=== PATIENT | female | born 2000 | race Caucasian/White ===

== ENCOUNTER 2023-10-28 20:58 | Outpatient (REF) | payer BC, OTHER, SELFPAY | END 2023-10-28 20:59 | disposition home or self-care (01) | LOC: LAB 20:58 | PROVIDERS: Visit Provider Obstetrics & Gynecology | DX: Z01.419 Encounter for gynecological examination (general) (routine) without abnormal findings (principal) | CPT/HCPCS: 88175 ==

== ENCOUNTER 2024-09-16 10:42 | Outpatient (OUT) | payer BC, OTHER, SELFPAY ==
--- OUTSIDE RECORDS SUMMARY | 2024-09-16 09:50 | XMS_ITS | Encounter Summary ---
Author Organization [facility] Address [address] [place] [address] Care Team Providers Care Surgical Training Specialist Name Role Phone Chey Bennett MD Primary Care Provider [phone] Nory Taylor NP Unavailable [phone] Marcial Mcclure DO Unavailable [phone] Reason for Visit * Reason Comments STI Screening Encounter Details Date Type Department Care Team (Late st Contact Info) Description 09/16/2024 9:50 AM EDT Office Visit JEFERSON [place] [address] [facility] [place] [address] Yasmeen Samson NP [address] [facility] [place] [address] STD exposure; Sexually transmitted disease exposure Social History Tobacco Use Types Packs/Day Years Used Date Smoking Tobacco: Never Smokeless Tobacco: Never Alcohol Use Standard Drinks/Week Comments Yes 0 (1 standard drink = 0.6 oz pur e alcohol) caffeine intake: 2 sodas daily AUDIT-C Answer Date Recorded Q1: How often do you have a drink containing alc ohol? 2-4 times a month 04/13/2024 Q2: How many drinks containi ng alcohol do you have on a typical day when you are drinking? 3 or 4 04/13/2024 Q3: How often do you have si x or more drinks on one occasion? Monthly 04/13/2024 PHQ-2 Answer Date Recorded Patient Health Questionnaire-2 Score 0 04/13/2024 Comments No Sex and Gender Information Value Date Recorded Sex Assigned at Not on file Legal Sex Female 11:47 PM EDT Gender Identity Not on file Sexual Orientation Not on file documented as of this encounter Last Filed Vital Signs Vital Sign Reading Time Taken Comments Blood Pressure 106/72 09/16/2024 10:07 AM EDT Pulse - - Temperature - - Respiratory Rate - - Oxygen Saturation - - Inhaled Oxygen Concentration - - Weight 66.3 kg (146 lb 4 oz) 09/16/2024 10:07 AM EDT Height - - Body Mass Index 27.63 04/13/2024 4:16 PM EST documented in this encounter Plan of Treatment Upcoming Encounters Date Type Department Care Team (Late st Contact Info) Description 11/03/2024 11:00 AM EDT Office Visit [facility] [address] [facility] [place] [id number] Jonathan Elizabeth DO [address] [place] [address] Scheduled Orders Name Type Priority Associated Diagnoses Orde r Schedule SURESWAB(R) ADVANCED VAGINITIS PLUS, TMA Pathology and Cytology Routine STD exposure Ordered: 09/16/2024 CHLAMYDIA TRACHOMATIS (GENITO/STI) Lab Routine STD exposure Ordered: 09/16/2024 Neisseria gonorrhea DNA probe, direct Lab Routine STD exposure Ordered: 09/16/2024 HIV-1 and HIV-2 antibodies Lab Routine Sexually transmitted disease exposure Ordered: 09/16/2024 Hepatitis B surface antigen Lab Routine Sexually transmitted disease exposure Ordered: 09/16/2024 HSV nonspecific, IgG Lab Routine STD exposure Sexually transmitted disease exposure Ordered: 09/16/2024 HSV nonspecific, IgM Lab Routine STD exposure Sexually transmitted disease exposure Ordered: 09/16/2024 documented as of this encounter Visit Diagnoses Diagnosis STD exposure Sexually transmitted disease exposure Contact with or exposure to venereal diseases documented in this encounter Additional Health Concerns Assessment Noted Time PHQ-9 Depression Total Score: 0 04/13/19 25 4:00 PM EST documented as of this encounter Care Teams Surgical Training Specialist Relationship Specialty Start Date End Date Chey Bennett MD PCP - General Family Medicine 04/13/24 Nory Taylor NP [address] [place] [address] Nurse Practitioner Family Medicine 04/20/24 Marcial Mcclure DO [address] [address] Referring Physician Neurology 06/18/24 documented as of this encounter
--- OUTSIDE RECORDS SUMMARY | 2024-09-16 10:48 | XMS_ITS | Encounter Summary ---
Author Organization [employer] Address [id number] [address] [place] [address] Care Team Providers Care Icebox Man Name Role Phone No Pcp, No Pcp Primary Care Provider Unavailabl e Reason for Visit * Reason Comments Med Refill Encounter Details Date Type Department Care Team (Late st Contact Info) Description 05/15/2021 Refill [facility] [address] [place] [address] [place] [address] Bri Julian, BEULAH-MANNEQUIN MOLD MAKER [address] [place] [address] Anxiety and depression Social History Tobacco Use Types Packs/Day Years Used Date Smoking Tobacco: Never Smokeless Tobacco: Never Alcohol Use Standard Drinks/Week Comments No 0 (1 standard drink = 0.6 oz pur e alcohol) PHQ-2 Answer Date Recorded Total Score 4 05/16/2021 Childcare Answer Date Recorded Childcare Unknown 07/28/2018 Employment Answer Date Recorded Employment Unknown 07/28/2018 Purpose - Life Answer Date Recorded Purpose and direction in life Unknown Comments No Sex and Gender Information Value Date Recorded Sex Assigned at Female 12/24/2023 3:54 PM EST Legal Sex Female 12:18 PM EDT Gender Identity Female 12/24/2023 3:54 PM EST Sexual Orientation Straight 12/24/2023 3: 54 PM EST COVID-19 Exposure Response Date Recorded In the last 10 days, have yo u been in contact with someone who was confirmed or suspected to have Coronavirus/COVID-19? No / Unsure 05/16/2021 10:11 AM EDT documented as of this encounter Miscellaneous Notes * Telephone Encounter - CANDELARIO Pride - 05/15/2021 6:24 AM EDT Patient needs appt for additional medication documented in this encounter Plan of Treatment Not on file documented as of this encounter Visit Diagnoses Diagnosis Anxiety and depression documented in this encounter Additional Health Concerns Assessment Noted Time PHQ-9 Depression Total Score: 7 10/01/19 21 8:39 AM EDT documented as of this encounter Care Teams Icebox Man Relationship Specialty Start Date End Date No Pcp, [place] [address] PCP - General Family Medicine 01/19/23 documented as of this encounter
--- OUTSIDE RECORDS SUMMARY | 2024-09-16 10:48 | XMS_ITS | Encounter Summary ---
Author Organization [facility] Address [address] [facility] [place] [address] Care Team Providers Care Animal Care Worker Name Role Phone Chey Bennett MD Primary Care Provider [phone] Nory Taylor NP Unavailable [phone] Marcial Mcclure DO Unavailable [phone] Encounter Details Date Type Department Care Team (Late st Contact Info) Description 05/18/2024 External Result Encounter [facility] External Department Unsolicited Nory Taylor NP [address] [place], [place] [id number] Social History Tobacco Use Types Packs/Day Years [...] on file documented as of this encounter Plan of Treatment Upcoming Encounters Date Type Department Care Team (Late st Contact Info) Description 11/03/2024 11:00 AM EDT Office Visit [facility] [address] [facility] [place] [address] Jonathan Elizabeth DO [address] [facility] [place] [address] documented as of this encounter Procedures Procedure Name Priority Date/Time Associated Diagnosis Comments TRANSTHORACIC ECHO (TTE) COMPLETE 05/18/2024 1:56 PM EDT documented in this encounter Results * Transthoracic echo (TTE) complete (05/18/2024 1:56 PM EDT) Anatomical Region Laterality Modality Heart Ultrasound 05/18/2024 1:56 PM EDT Narrative 05/18/2024 10:28 PM EDT [facility] Main [address] [address] Echocardiogram Signed Patient: Gaye Bird MR#: [id number] : 2000 Acct:[id number] Age/Sex: 23 / F ADM Date: 05/18/24 Loc: Room: Type: [facility] [address] Attending Dr: Nory Taylor HYDROLOGIC MODELER-C Ordering Provider: Nory Taylor CNP Date of Service: 05/18/24/ ECH/ECH echo transthoracic: tachycardia, abnormal EKG Copies to: MD Nory Ordonez [facility] Patient Location: : 2000 Gender: Female (MM/DD/YYYY) Age: 23 Years Ordering Physician: Nory Taylor Height: 59.84 in Weight: 157.066 lb Performed By: Aarti Locke RDCS BSA: 1.68 m2 BP: 112 / 70 mmHg HR: 87 bpm Reason For Study: tachycardia, abnormal EKG History: tachycardia, abn EKG + + Interpretation Summary Ejection Fraction = 55-60%. The left ventricular wall motion is normal. A variety of Doppler measurements indicate normal left ventricular diastolic function. There is trace tricuspid regurgitation. There is no comparison study available. Procedure/Quality: A two-dimensional transthoracic echocardiogram with color flow, Doppler and injection of contrast agent Definity was performed. The study was technically good in quality. Left Ventricle: The left ventricular size is normal. The left ventricular thickness is normal. Ejection Fraction = 55-60%. A variety of Doppler measurements indicate normal left ventricular diastolic function. The left ventricular wall motion is normal. Left Atrium: The left atrium appears normal in size. Right Atrium: The right atrium appears normal in size. Right Ventricle: The right ventricle is normal in size and function. Aortic Valve: The aortic valve is normal in structure. No hemodynamically significant valvular aortic stenosis. No aortic regurgitation is present. Mitral Valve: The mitral valve is normal in structure. No significant mitral valve stenosis. There is no mitral regurgitation noted. Tricuspid Valve: The tricuspid valve is normal in structure. There is trace tricuspid regurgitation. Pulmonic Valve: The pulmonic valve is not well visualized. No significant pulmonic regurgitation. Arteries: The aortic root is normal size. Pericardium/Pleura: No pericardial effusion seen. IVC/Hepatic Veins: The inferior vena cava is normal in size, with a normal collapsibility index. MMode/2D Measurements Calculations IVSd (0.7-1.1 cm): 0.74 cm LVIDd (3.7-5.4 cm): 4.9 cm LVPWd (0.7-1.1 cm): 0.72 cm LVIDs (2.3-3.6 cm): 3.2 cm LA dimension (2.3-4.0 cm): 3.1 Ao root diam (2.0-3.2 cm): 2.6 cm cm FS: 33.8 % Ao root area: 5.5 cm2 EDV(Teich): 112.8 ml LVOT diam: 1.95 cm ESV(Teich): 42.3 ml LVOT area: 3.0 cm2 EF(Teich): 62.5 % LAV(MOD-sp2): 41.2 ml LAV(MOD-sp4): 26.8 ml LA A2 area: 15.5 cm2 LA A4 area: 12.7 cm2 LA length (vol): 4.7 cm LA vol: 35.4 ml LA vol index: 21.1 ml/m2 Doppler Measurements Calculations MV E max arleth: 93.6 cm/sec Ao V2 max: 141.2 cm/sec MV A max arleth: 56.3 cm/sec Ao max P.0 mmHg MV dec time: 0.15 sec Ao mean P.5 mmHg MV dec slope: 611.4 cm/sec Ao V2 mean: 103.1 cm/sec E/E' lat: 4.6 Ao V2 VTI: 28.2 cm E/E' med: 7.2 EVGENY(I,D): 2.9 cm2 EVGENY(V,D): 2.7 cm2 TV max P.0 mmHg LV V1 max: 129.8 cm/sec TR max arleth: 234.8 cm/sec LV V1 max P.7 mmHg TR max P.1 mmHg LV V1 mean: 94.5 cm/sec RAP systole: 3.0 mmHg LV V1 mean P.0 mmHg LV V1 VTI: 26.9 cm + + + + + : Electronically : : : : signed by: Hannah : : : : Mohini : : : : on: 05/18/2024, : : 10:27 PM : Transcribed By: HEATHER Performed At: 05/18/24 3584 Signed By: Hannah Rajan MD 05/18/24 2227 Procedure Note Hannah Rajan MD - 05/18/2024 [facility] Main [address] [place], [place] [id number] Echocardiogram Signed Patient: Gaye Bird LMR#: [id number] : 2000Acct:[id number] Age/Sex: 23 / FADM Date: 05/18/24 Loc: Room:Type: [facility] Attending Dr: Nory Taylor HYDROLOGIC MODELER-C Ordering Provider: Nory Taylor CNP Date of Service: 05/18/24/ ECH/ECH echo transthoracic: tachycardia,abnormal EKG Copies to: MD Nory Ordonez [facility] Patient Location: : 2000 Gender: Female (MM/DD/YYYY) Age: 23 Years Ordering Physician: Nory Taylor Height: 59.84 in Weight: 157.066 lb Performed By: Aarti Locke MONIK BSA: 1.68 m2 BP: 112 / 70 mmHg HR: 87 bpm Reason For Study: tachycardia, abnormal EKG History: tachycardia, abn EKG + + Interpretation Summary Ejection Fraction = 55-60%. The left ventricular wall motion is normal. A variety of Doppler measurements indicate normal left ventricular diastolic function. There is trace tricuspid regurgitation. There is no comparison study available. Procedure/Quality: A two-dimensional transthoracic echocardiogram with color flow, Doppler and injection of contrast agent Definity was performed. The study was technically good in quality. Left Ventricle: The left ventricular size is normal. The left ventricular thickness is normal. Ejection Fraction = 55-60%. A variety of Doppler measurements indicate normal left ventricular diastolic function. The left ventricular wall motion is normal. Left Atrium: The left atrium appears normal in size. Right Atrium: The right atrium appears normal in size. Right Ventricle: The right ventricle is normal in size and function. Aortic Valve: The aortic valve is normal in structure. No hemodynamically significant valvular aortic stenosis. No aortic regurgitation is present. Mitral Valve: The mitral valve is normal in structure. No significant mitral valve stenosis. There is no mitral regurgitation noted. Tricuspid Valve: The tricuspid valve is normal in structure. There is trace tricuspid regurgitation. Pulmonic Valve: The pulmonic valve is not well visualized. No significant pulmonic regurgitation. Arteries: The aortic root is normal size. Pericardium/Pleura: No pericardial effusion seen. IVC/Hepatic Veins: The inferior vena cava is normal in size, with a normal collapsibility index. MMode/2D Measurements Calculations IVSd (0.7-1.1 cm): 0.74 cm LVIDd (3.7-5.4 cm): 4.9 cm LVPWd (0.7-1.1 cm): 0.72 cm LVIDs (2.3-3.6 cm): 3.2 cm LA dimension (2.3-4.0 cm): 3.1 Ao root diam (2.0-3.2 cm): 2.6 cm cm FS: 33.8 % Ao root area: 5.5 cm2 EDV(Teich): 112.8 ml LVOT diam: 1.95 cm ESV(Teich): 42.3 ml LVOT area: 3.0 cm2 EF(Teich): 62.5 % LAV(MOD-sp2): 41.2 ml LAV(MOD-sp4): 26.8 ml LA A2 area: 15.5 cm2 LA A4 area: 12.7 cm2 LA length (vol): 4.7 cm LA vol: 35.4 ml LA vol index: 21.1 ml/m2 Doppler Measurements Calculations MV E max arleth: 93.6 cm/sec Ao V2 max: 141.2 cm/sec MV A max arleth: 56.3 cm/sec Ao max P.0 mmHg MV dec time: 0.15 sec Ao mean P.5 mmHg MV dec slope: 611.4 cm/sec Ao V2 mean: 103.1 cm/sec E/E' lat: 4.6 Ao V2 VTI: 28.2 cm E/E' med: 7.2 EVGENY(I,D): 2.9 cm2 EVGENY(V,D): 2.7 cm2 TV max P.0 mmHg LV V1 max: 129.8 cm/sec TR max arleth: 234.8 cm/sec LV V1 max P.7 mmHg TR max P.1 mmHg LV V1 mean: 94.5 cm/sec RAP systole: 3.0 mmHg LV V1 mean P.0 mmHg LV V1 VTI: 26.9 cm + + + + + : Electronically: :: : signed by: Hannah: :: : Mohini: :: : on: 05/18/2024,: : 10:27 PM: Transcribed By: HEATHER Performed At: 05/18/24 0346 Signed By: Hannah Rajan MD 05/18/24 7254 Nory Taylor NP CV ECHO PROCEDURES Final R esult documented in this encounter Visit Diagnoses Not on filedocumented in this encounter Additional Health Concerns Assessment Noted Time PHQ-9 Depression Total Score: 0 04/13/19 4:00 PM EST documented as of this encounter Care Teams Animal Care Worker Relationship Specialty Start Date End Date Sabrina, Chey Holly MD PCP - General Family Medicine 04/13/24 Nory Taylor NP [address] [place] [address] Nurse Practitioner Family Medicine 04/20/24 Marcial Mcclure DO [address] [place] [address] Referring Physician Neurology 06/18/24 documented as of this encounter
--- OUTSIDE RECORDS SUMMARY | 2024-09-16 10:48 | XMS_ITS | Encounter Summary ---
Author Organization [facility] Address [address] [place] [address] Care Team Providers Care Exceptional Children Teacher Name Role Phone Unavailable Primary Care Provider Unavailabl e Source Comments In the event this information is protected by the Federal Confidentiality of Alcohol and Drug AbusePatient Records regulations: The Federal rules restrict any use of the information to criminally investigate or prosecute any alcohol or drug abuse patient.[facility] Encounter Details Date Type Department Care Team (Late st Contact Info) Description 03/07/2023 Get Medical Advice Pediatric Epilepsy [address] [place], [place] [id number] Micky Rico MD [address] [place] [address] Update medication Social History Tobacco Use Types Packs/Day Years Used Date Smoking Tobacco: Never Smokeless Tobacco: Never PHQ-2 Answer Date Recorded PHQ-2 score 0 06/04/2021 Area Deprivation Index Answer Date Wally rded National Score (1-100), lower number is lower ri sk 81 02/01/2023 State Score (1-10), lower number is lower risk 7 02/01/2023 Data from: https://www.neighborhoodatlas.[facility]/. Last address used for calculation [address] [facility] 02/01/2023 Comments No Sex and Gender Information Value Date Recorded Sex Assigned at Female 03/10/2021 6:50 AM EST Legal Sex Female 8:23 AM EDT Gender Identity Female 03/10/2021 6:50 AM EST Sexual Orientation Straight 03/10/2021 6: 50 AM EST documented as of this encounter Plan of Treatment Not on file documented as of this encounter Visit Diagnoses Not on filedocumented in this encounter
--- OUTSIDE RECORDS SUMMARY | 2024-09-16 10:48 | XMS_ITS | Encounter Summary ---
Author Organization [employer] Address [id number] [address] [place] [address] Care Team Providers Care Microbial Specialist Name Role Phone No Pcp, No Pcp Primary Care Provider Unavailabl e Encounter Details Date Type Department Care Team (Late st Contact Info) Description 09/08/2020 [facility] [address] [place] [address] [place] [phone] Carol Allen CMA Social History Tobacco Use Types Packs/Day Years Used Date Smoking Tobacco: Never Smokeless Tobacco: Never Alcohol Use Standard Drinks/Week Comments No 0 (1 standard drink = 0.6 oz pur e alcohol) PHQ-2 Answer Date Recorded Total Score 4 03/16/2020 Childcare Answer Date Recorded Childcare Unknown 07/28/2018 [...] Exposure Response Date Recorded In the last month, have you been in contact with someone who was confirmed or suspected to have Coronavirus / COVID-19? No / Unsure 09/10/2020 8:08 PM EDT documented as of this encounter Miscellaneous Notes * Telephone Encounter - Carol Allen CMA - 09/08/2020 9:09 AM EDT ----- Message from Bri Julian APRN-FACULTY PHYSICIAN sent at 09/08/2020 7:51 AM EDT ----- Normal vaginal thien- Patient should stop the antibiotic and if symptoms continue she can come backfor reevaluation. * Telephone Encounter - Carol Allen CMA - 09/08/2020 9:09 AM EDT Informed patients mother, she verbalized understanding. documented in this encounter Plan of Treatment Not on file documented as of this encounter Visit Diagnoses Not on filedocumented in this encounter Additional Health Concerns Assessment Noted Time PHQ-9 Depression Total Score: 4 03/16/19 21 8:00 AM EST documented as of this encounter Care Teams Microbial Specialist Relationship Specialty Start Date End Date No Pcp, [place] [address] PCP - General Family Medicine 01/19/23 documented as of this encounter
--- OUTSIDE RECORDS SUMMARY | 2024-09-16 10:48 | XMS_ITS | Encounter Summary ---
Author Organization [facility] Address [address] [place] [address] Care Team Providers Care Curriculum Advisory Teacher Name Role Phone Unavailable Primary Care Provider Unavailabl e Source Comments In the event this information is protected by the Federal Confidentiality of Alcohol and Drug AbusePatient Records regulations: The Federal rules restrict any use of the information to criminally investigate or prosecute any alcohol or drug abuse patient.[facility] Encounter Details Date Type Department Care Team (Late st Contact Info) Description 12/05/2020 Patient Msg Neurology [address] [id number] Micky Rico MD [address] [place] [address] level of vimpat is fine, Vitamin D is low Social History Tobacco Use Types Packs/Day Years Used Date Smoking Tobacco: Never Assessed PHQ-2 Answer Date Recorded PHQ-2 score 1 09/27/2020 Area Deprivation Index Answer Date Wally rded National Score (1-100), lower number is lower ri sk Not on file 09/28/2020 State Score (1-10), lower number is lower risk N ot on file 09/28/2020 Data from: https://www.neighborhoodatlas.[facility].edu/. Last address used for calculation Not on file 09/28/2020 Comments No Sex and Gender Information Value Date Recorded Sex Assigned at Female 03/10/2021 6:50 AM EST Legal Sex Female 8:23 AM EDT Gender Identity Female 03/10/2021 6:50 AM EST Sexual Orientation Straight 03/10/2021 6: 50 AM EST COVID-19 Exposure Response Date Recorded In the last month, have you been in contact with someone who was confirmed or suspected to have Coronavirus / COVID-19? No / Unsure 12/01/2020 10:25 AM EDT documented as of this encounter Plan of Treatment Not on file documented as of this encounter Visit Diagnoses Not on filedocumented in this encounter
--- OUTSIDE RECORDS SUMMARY | 2024-09-16 10:48 | XMS_ITS | Encounter Summary ---
Author Organization [employer] Address [id number] [address] [place] [address] Care Team Providers Care Regional Sales Consultant Name Role Phone No Pcp, No Pcp Primary Care Provider Unavailabl e Reason for Visit * Reason Comments Med Refill Encounter Details Date Type Department Care Team (Late st Contact Info) Description 04/12/2021 Refill [facility] [address] [place] [address] [place] [address] Catherine Victor APRN-KRYSTAL [address] [facility] [address] [place] [address] Anxiety and depression Social History Tobacco Use Types Packs/Day Years Used Date Smoking Tobacco: Never Smokeless Tobacco: Never Alcohol Use Standard Drinks/Week Comments No 0 (1 standard drink = 0.6 oz pur e alcohol) PHQ-2 Answer Date Recorded Total Score 7 09/30/2020 Childcare Answer Date Recorded Childcare Unknown 07/28/2018 [...] Orientation Straight 12/24/2023 3: 54 PM EST documented as of this encounter Miscellaneous Notes * Telephone Encounter - CANDELARIO Oliveira - 04/12/2021 10:38 PM EST Send to escobar please documented in this encounter Plan of Treatment Not on file documented as of this encounter Visit Diagnoses Diagnosis Anxiety and depression documented in this encounter Additional Health Concerns Assessment Noted Time PHQ-9 Depression Total Score: 7 10/01/19 21 8:39 AM EDT documented as of this encounter Care Teams Regional Sales Consultant Relationship Specialty Start Date End Date No Pcp, [place] [address] PCP - General Family Medicine 01/19/23 documented as of this encounter
--- OUTSIDE RECORDS SUMMARY | 2024-09-16 10:48 | XMS_ITS | Encounter Summary ---
Author Organization [facility] Address [address] [place] [address] Care Team Providers Care Tool And Gauge Inspector Name Role Phone Unavailable Primary Care Provider Unavailabl e Source Comments In the event this information is protected by the Federal Confidentiality of Alcohol and Drug AbusePatient Records regulations: The Federal rules restrict any use of the information to criminally investigate or prosecute any alcohol or drug abuse patient.[facility] Reason for Visit * Reason Onset Date Comments Refill Request 08/18/2024 Encounter Details Date Type Department Care Team (Late st Contact Info) Description 08/18/2024 Refill Neurology [address] [place] [address] Adrianna Brito PA-C [address] [place] [address] Refill Request Social History Tobacco Use Types Packs/Day Years Used Date Smoking Tobacco: Never Passive Smoke Exposure: Never Smokeless Tobacco: Never PHQ-2 Answer Date Recorded PHQ-2 score 0 11/12/2023 Area Deprivation Index Answer Date Wally rded National Score (1-100), lower number is lower ri sk 81 02/01/2023 State Score (1-10), lower number is lower risk 7 02/01/2023 Data from: https://www.neighborhoodatlas.medicine.[facility].edu/. Last address used for calculation [address] 02/01/2023 Comments No Sex and Gender Information [...]
--- OUTSIDE RECORDS SUMMARY | 2024-09-16 10:48 | XMS_ITS | Encounter Summary ---
Author Organization [facility] tem Address [id number] [address] [place] [address] Care Team Providers Care Scrap Baller Name Role Phone No Pcp, No Pcp Primary Care Provider Unavailabl e Encounter Details Date Type Department Care Team (Late st Contact Info) Description 05/16/2022 Telephone [facility] Family [facility] [address] [place] [address] [place] [address] Bri Julian, CAR SWEEPER-[facility] [address] [place] [id number] Social History Tobacco Use Types Packs/Day Years Used Date Smoking Tobacco: Never Smokeless Tobacco: Never Alcohol Use Standard Drinks/Week Comments Yes 0 (1 standard drink = 0.6 oz pur e alcohol) socially PHQ-2 Answer Date Recorded Total Score 2 12/19/2021 Childcare Answer Date Recorded Childcare Unknown 07/28/2018 [...] encounter Miscellaneous Notes * Telephone Encounter - Radha Gutierrez - 05/16/2022 10:28 AM EDT 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 * Telephone Encounter - CANDELARIO Pride - 05/16/2022 10:28 AM EDT What type of titer? * Telephone Encounter - Radha Gutierrez - 05/16/2022 10:28 AM EDT completed documented in this encounter Plan of Treatment Not on file documented as of this encounter Visit Diagnoses Not on filedocumented in this encounter Additional Health Concerns Assessment Noted Time PHQ-9 Depression Total Score: 2 12/20/19 22 10:16 AM EDT documented as of this encounter Care Teams Scrap Baller Relationship Specialty Start Date End Date No Pcp, No Pcp VICKY Jordan [id number] PCP - General Family Medicine 01/19/23 documented as of this encounter
--- OUTSIDE RECORDS SUMMARY | 2024-09-16 10:48 | XMS_ITS | Encounter Summary ---
Author Organization [employer] [facility] tem Address [id number] [address] [place] [address] Care Team Providers Care Tools Developer Name Role Phone No Pcp, No Pcp Primary Care Provider Unavailabl e Encounter Details Date Type Department Care Team (Late st Contact Info) Description 05/26/2021 Documentation [facility] [address] [place] [address] [place] [id number] Gloria Edgar CMA Social History Tobacco Use Types Packs/Day [...] suspected to have Coronavirus/COVID-19? No / Unsure 05/26/2021 7:59 AM EDT documented as of this encounter Plan of Treatment Not on file documented as of this encounter Visit Diagnoses Not on filedocumented in this encounter Additional Health Concerns Assessment Noted Time PHQ-9 Depression Total Score: 4 05/17/19 22 10:00 AM EDT documented as of this encounter Care Teams Tools Developer Relationship Specialty Start Date End Date No Pcp, [place] [id number] PCP - General Family Medicine 01/19/23 documented as of this encounter
--- OUTSIDE RECORDS SUMMARY | 2024-09-16 10:48 | XMS_ITS | Encounter Summary ---
Author Organization [facility] Address [address] [place] [address] Care Team Providers Care Head Of English Name Role Phone Chey Bennett MD Primary Care Provider [phone] Nory Taylor POULTRY PICKER Unavailable [phone] Marcial Mcclure DO Unavailable [phone] Encounter Details Date Type Department Care Team (Latest Contact Info) Description 09/10/2024 Travel Social History Tobacco Use Types Packs/Day Years [...] Description 11/03/2024 11:00 AM EDT Office Visit [facility] [address] [place] [address] [place] [address] Jonathan Elizabeth DO [address] [facility] [address] [place] [address] documented as of this encounter Visit Diagnoses Not on filedocumented in this encounter Additional Health Concerns Assessment Noted Time PHQ-9 Depression Total Score: 0 04/13/19 25 4:00 PM EST documented as of this encounter Care Teams Head Of English Relationship Specialty Start Date End Date Chey Bennett MD PCP - General Family Medicine 04/13/24 Nory Taylor, GENI [address] [place] [address] Nurse Practitioner Family Medicine 04/20/24 Marcial Mcclure DO [address] [place] [address] Referring Physician Neurology 06/18/24 documented as of this encounter
--- OUTSIDE RECORDS SUMMARY | 2024-09-16 10:48 | XMS_ITS | Encounter Summary ---
Author Organization [facility] Address [address] [place] [address] Care Team Providers Care Superintendent Meters Name Role Phone Unavailable Primary Care Provider Unavailabl e Source Comments In the event this information is protected by the Federal Confidentiality of Alcohol and Drug AbusePatient Records regulations: The Federal rules restrict any use of the information to criminally investigate or prosecute any alcohol or drug abuse patient.[facility] Encounter Details Date Type Department Care Team (Late st Contact Info) Description 04/15/2023 Patient Msg Neurology [address] [place] [id number] Provider, Ccf Please confirm your sleep study Social History Tobacco Use Types Packs/Day Years Used Date Smoking Tobacco: Never Smokeless Tobacco: Never PHQ-2 Answer Date Recorded PHQ-2 score 0 06/04/2021 Area Deprivation Index Answer Date Wally rded National Score (1-100), lower number is lower ri sk 81 02/01/2023 State Score (1-10), lower number is lower risk 7 02/01/2023 Data from: https://www.neighborhoodatlas.medicine.[facility].edu/. Last address used for calculation Johanne [facility] 02/01/2023 Comments No Sex and Gender [...]
--- OUTSIDE RECORDS SUMMARY | 2024-09-16 10:48 | XMS_ITS | Encounter Summary ---
Author Organization [facility] Address [address] [place] [address] Care Team Providers Care Meeting/Event Planner Name Role Phone Chey Bennett MD Primary Care Provider [phone] Nory Taylor LUMBER MARKER Unavailable [phone] Marcial Mcclure DO Unavailable [phone] Encounter Details Date Type Department Care Team (Late st Contact Info) Description 08/29/2024 Abstract [facility] Family Medicine [address] [place] [address] Nory Taylor NP [address] [place], [place] [id number] Social History Tobacco Use Types Packs/Day Years [...] EDT Office Visit [facility] [address] [place] [address] Jonathan Elizabeth DO [address] [facility] [place] [address] documented as of this encounter Visit Diagnoses Not on filedocumented in this encounter Additional Health Concerns Assessment Noted Time PHQ-9 Depression Total Score: 0 04/13/19 4:00 PM EST documented as of this encounter Care Teams Meeting/Event Planner Relationship Specialty Start Date End Date Chey Bennett MD PCP - General Family Medicine 04/13/24 Nory Taylor, LUMBER MARKER [address] [place] [address] Nurse Practitioner Family Medicine 04/20/24 Marcial Mcclure DO [address] [place] [address] Referring Physician Neurology 06/18/24 documented as of this encounter
--- OUTSIDE RECORDS SUMMARY | 2024-09-16 10:48 | XMS_ITS | Clinical Summary ---
Author Organization [facility] Address [address] [place] [address] Care Team Providers Care Motor Overhauler Name Role Phone Chey Bennett MD Primary Care Provider [phone] Nory Taylor SECURITY GUARDS DISPATCHER Unavailable [phone] Marcial Mcclure DO Unavailable [phone] Allergies No known active allergies Medications folic acid (Folvite) 1 MG tablet 11/29/19 23 Active metFORMIN XR (Glucophage-XR) 500 MG 24 hr tabletIndicatio ns:Insulin resistance Take 2 tablets (1,000 mg) by mouth in the evening. Take with meals Do not crush, chew, or split. 180 tablet 3 03/19/19 25 026 Active venlafaxine XR (Effexor XR) 37.5 MG 24 hr capsuleIndicati ons:Anxiety, generalized Take 1 capsule (37.5 mg) by mouth Daily Do not crush or chew. 90 capsule 3 03/19/19 25 026 Active lamoTRIgine (LaMICtal) 100 MG tablet Take 100 mg by mouth in the morning and 100 mg before bedtime. 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 60 tablet 5 06/19/19 25 026 Active norethindrone-e thinyl estradiol-iron (Lo Loestrin Fe) 1 MG-10 MCG / 10 MCG tabletIndicatio ns:Menorrhagia with irregular cycle Take 1 tablet by mouth Daily for 28 days Take 1 tablet by mouth daily 28 tablet 11 08/27/19 25 025 Active Magnesium Oxide -Mg Supplement (RA Magnesium) 500 MG capsule Take by mouth 025 Discontinued metroNIDAZOLE (Flagyl) 500 MG tabletIndicatio ns:BV (bacterial vaginosis) Take 1 tablet (500 mg) by mouth in the morning and 1 tablet (500 mg) before bedtime. Do all this for 7 days. Do not drink alcohol while taking this medication. 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 Anxiety and depression 03/16/2020 Resolved Problems Problem Noted Date Diagnosed Date Resolved Date Concussion with loss of cons ciousness of 30 minutes or less 10/30/2018 04/10/2024 Encounters Date Type Department Care Team Description 09/16/2024 9:50 AM EDT Office Visit [facility] [address] [place] [address] [place] [address] Yasmeen Samson NP STD exposure; Sexually transmitted disease exposure 09/16/2024 Bamboo flowsheet [facility] [address] [facility] [place] [address] Yasmeen Samson NP 09/10/2024 Travel 08/29/2024 Abstract [facility] [address] [facility] [place] [address] Nory Taylor NP 08/27/2024 Telephone [facility] [address] [place] [address] Aleksandra Barr MA 08/26/2024 1:50 PM EDT Office Visit [facility] [address] [place] [address] Jonathan Elizabeth DO BV (bacterial vaginosis) (Primary Dx); Menorrhagia with irregular cycle 08/26/2024 External Result Encounter [facility] External Department Unsolicited Yasmeen Samson NP 08/26/2024 Bamboo flowsheet [facility] [address] [facility] [place] [address] Jonathan Elizabeth DO 08/19/2024 Travel 06/18/2024 3:30 PM EDT Office Visit [facility] [address] [place] [address] Marcial Mcclure DO 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) (Primary Dx) 06/18/2024 Bamboo flowsheet [facility] [place] [address] [place] [address] Marcial Mcclure DO from Last 3 Months Immunizations Immunization Administration Dates Next Due DTaP 06/10/2007,01/24/2004 DTaP / Hep B / IPV 2002 DTaP, Unspecified 06/11/2003,03/19/2003 Hep B, Adolescent or Pediatric 06/19/2022,2002 Hep B, adult 07/20/2022 HiB, unspecified 03/19/2003 Hib (PRP-T) 11/18/2003,2002 Hib / Hep B 06/11/2003 IPV 06/10/2007,06/11/2003,03/19/2003 Influenza, injectable, quadr ivalent, preservative free 12/10/2022 MMR 06/10/2007,11/18/2003 Meningococcal ACWY, unspecified 06/14/2015 Meningococcal MCV4O 09/30/2020 Pneumococcal Conjugate PCV 7 11/18/2003,12/26/19 03 Tdap 05/27/2015 Family History Medical History Relation Name Comments No Known Problems Father Cirrhosis Maternal Grandmother Heart attack Maternal Grandmother Valvular heart disease Maternal Grandmother Valvular heart disease Mother Cirrhosis Mother's Sister Cancer Paternal Grandfather Ashutosh Bird Lung cancer Paternal Grandfather Ashutosh Bird Dementia Paternal Grandmother Valvular heart disease Sister Relation Name Status Comments Father Alive Maternal Grandfather Maternal Grandmother Mother Alive Mother's Sister Paternal Grandfather Ashutosh Bird Paternal Grandmother Sister Social History Tobacco Use Types Packs/Day Years Used Date Smoking Tobacco: Never Smokeless Tobacco: Never Tobacco Cessation:Counseling Given: Not Answered Alcohol Use Standard Drinks/Week Comments Yes 0 [...] on file Sexual Orientation Not on file Last Filed Vital Signs Vital Sign Reading Time Taken Comments Blood Pressure 106/72 09/16/2024 10:07 AM EDT Pulse 79 06/18/2024 3:28 PM EDT Temperature - - Respiratory Rate - - Oxygen Saturation 98% 06/18/2024 3:28 PM EDT Inhaled Oxygen Concentration - - Weight 66.3 kg (146 lb 4 oz) 09/16/2024 10:07 AM EDT Height 154.9 cm (5' 1 ) 04/13/2024 4:16 PM EST Body Mass Index 27.63 04/13/2024 4:16 PM EST Plan of Treatment Upcoming Encounters Date Type Department Care Team (Late st Contact Info) Description 11/03/2024 11:00 AM EDT Office Visit [facility] [address] [facility] [facility] [place] [address] Jonathan Elizabeth, [address] [facility] [place] [address] Health Maintenance Due Date Last Done Comments Influenza Vaccine (#1) 2024 12/10/2022 Procedures Procedure Name Priority Date/Time Associated Diagnosis Comments RECURRENT VAGINITIS (HTRX) Routine 08/26/2024 3:46 PM EDT from Last 3 Months Results * (ABNORMAL) RECURRENT VAGINITIS (HTRX) (08/26/2024 3:46 PM EDT) Pathologist [facility] ATOPOBIUM VAGINAE 27.692(A) 19.961 - 24.689 ppm 08/27/2024 6:17 AM EDT [facility] ATOPOBIUM VAGINAE Detected(A) 19.961 - 24.689 ppm 08/27/2024 6:17 AM EDT [facility] BVAB 2,3 (BACTERIAL VAGINOSIS ASSOCIATED BACTERIA 2, 3); MOBILUNCUS SPP 0 19.961 - 24.689 ppm 08/27/2024 6:17 AM EDT [facility] BVAB 2,3 (BACTERIAL VAGINOSIS ASSOCIATED BACTERIA 2, 3); MOBILUNCUS SPP Not Detected 19.961 - 24.689 ppm 08/27/2024 6:17 AM EDT [facility] CHA ALBICANS, PARAPSILOSIS, TROPICALIS 0 19.961 - 30.770 ppm 08/27/2024 6:17 AM EDT [facility] CHA ALBICANS, PARAPSILOSIS, TROPICALIS Not Detected 19.961 - 30.770 ppm 08/27/2024 6:17 AM EDT [facility] CHA GLABRATA 0 23.000 - 32.138 ppm 08/27/2024 6:17 AM EDT [facility] CHA GLABRATA Not Detected 23.000 - 32.138 ppm 08/27/2024 6:17 AM EDT [facility] CHA KRUSEI 0 23.000 - 32.271 ppm 08/27/2024 6:17 AM EDT [facility] CHA KRUSEI Not Detected 23.000 - 32.271 ppm 08/27/2024 6:17 AM EDT [facility] CHLAMYDIA TRACHOMATIS 0 23.000 - 31.467 ppm 08/27/2024 6:17 AM EDT [facility] CHLAMYDIA TRACHOMATIS Not Detected 23.000 - 31.467 ppm 08/27/2024 6:17 AM EDT [facility] GARDNERELLA VAGINALIS 22.1950(A) 19.961 - 24.689 ppm 08/27/2024 6:17 AM EDT [facility] GARDNERELLA VAGINALIS Detected(A) 19.961 - 24.689 ppm 08/27/2024 6:17 AM EDT [facility] MEGASPHAERA (TYPES 1, 2) 0 19.961 - 24.689 ppm 08/27/2024 6:17 AM EDT [facility] MEGASPHAERA (TYPES 1, 2) Not Detected 19.961 - 24.689 ppm 08/27/2024 6:17 AM EDT [facility] NEISSERIA GONORRHOEAE 0 23.000 - 32.117 ppm 08/27/2024 6:17 AM EDT [facility] NEISSERIA GONORRHOEAE Not Detected 23.000 - 32.117 ppm 08/27/2024 6:17 AM EDT [facility] TRICHOMONAS VAGINALIS 0 23.000 - 32.119 ppm 08/27/2024 6:17 AM EDT [facility] TRICHOMONAS VAGINALIS Not Detected 23.000 - 32.119 ppm 08/27/2024 6:17 AM EDT [facility] MYCOPLASMA GENITALIUM 0 19.961 - 24.689 ppm 08/27/2024 6:17 AM EDT [facility] MYCOPLASMA GENITALIUM Not Detected 19.961 - 24.689 ppm 08/27/2024 6:17 AM EDT [facility] ERMB, C; MEFA 16.201(A) 23.000 - 27.611 ppm 08/27/2024 6:17 AM EDT [facility] ERMB, C; MEFA Detected(A) 23.000 - 27.611 ppm 08/27/2024 6:17 AM EDT [facility] TET B, TET M 16.388(A) 23.000 - 27.778 ppm 08/27/2024 6:17 AM EDT [facility] TET B, TET M Detected(A) 23.000 - 27.778 ppm 08/27/2024 6:17 AM EDT [facility] Tissue 08/26/2024 3:46 PM EDT 08/27/2024 1:42 AM EDT Yasmeen Samson SECURITY GUARDS DISPATCHER LAB BLOOD ORDERABLES Final Re sult [facility] [address] [place] [address] from Last 3 Months Insurance [facility] Care Teams Motor Overhauler Relationship Specialty Start Date End Date Chey Bennett MD PCP - General Family Medicine 04/13/24 Nory Taylor NP [address] [place] [address] Nurse Practitioner Family Medicine 04/20/24 Marcial Mcclure DO [address] [facility] [address] [place] [address] Referring Physician Neurology 06/18/24
--- OUTSIDE RECORDS SUMMARY | 2024-09-16 10:48 | XMS_ITS | Encounter Summary ---
Author Organization [facility] Address [address] [place] [address] Care Team Providers Care Arm Rest Builder Name Role Phone Chey Bennett MD Primary Care Provider [phone] Nory Taylor NP Unavailable [phone] Marcial Mcclure DO Unavailable [phone] Encounter Details Date Type Department Care Team (Late st Contact Info) Description 09/16/2024 Bamboo flowsheet [facility] [address] [facility] [place] [address] Yasmeen Samson NP [address] [facility] [place] [address] Social History Tobacco Use Types Packs/Day Years [...] EDT Office Visit [facility] [address] [place] [address] Jonathan Elizabeth DO [address] [facility] [place] [address] documented as of this encounter Visit Diagnoses Not on filedocumented in this encounter Additional Health Concerns Assessment Noted Time PHQ-9 Depression Total Score: 0 04/13/19 4:00 PM EST documented as of this encounter Care Teams Arm Rest Builder Relationship Specialty Start Date End Date Chey Bennett MD PCP - General Family Medicine 04/13/24 Nory Taylor NP [address] [place] [address] Nurse Practitioner Family Medicine 04/20/24 Marcial Mcclure DO [address] [place] [address] Referring Physician Neurology 06/18/24 documented as of this encounter
--- OUTSIDE RECORDS SUMMARY | 2024-09-16 10:48 | XMS_ITS | Encounter Summary ---
Author Organization [facility] Address [address] [place] [address] Care Team Providers Care Technical Instructor Name Role Phone Ashley Corcoran SUMMER CAMP COUNSELOR Unavailable [phone] Love Madison MD Primary Care Provider [phone] Chey Bennett MD Primary Care Provider [phone] Nory Taylor SUMMER CAMP COUNSELOR Unavailable [phone] Marcial Mcclure DO Unavailable [phone] Encounter Details Date Type Department Care Team (Late st Contact Info) Description 11/05/2023 Orders Only [facility] [address] [place] [phone] [place] [address] [place] [address] Social History Tobacco Use Types Packs/Day Years Used Date Smoking Tobacco: Never Smokeless Tobacco: Never Alcohol Use Standard Drinks/Week Comments Yes 0 (1 standard drink = 0.6 oz pur e alcohol) caffeine intake: 2 sodas daily PHQ-2 Answer Date Recorded Patient Health Questionnaire-2 Score 0 01/25/2023 Comments No Sex and Gender Information Value Date Recorded Sex Assigned at Not on file Legal Sex Female 11:47 PM EDT Gender Identity Not on file Sexual Orientation Not on file documented as of this encounter Plan of Treatment Upcoming Encounters Date Type Department Care Team (Late st Contact Info) Description 11/03/2024 11:00 AM EDT Office Visit [facility] [address] [place] [address] Jonathan Elizabeth DO [address] [facility] [address] [place], [place] [id number] documented as of this encounter Procedures Procedure Name Priority Date/Time Associated Diagnosis Comments PAP SMEAR Routine 10/28/2023 12:00 AM EDT documented in this encounter Results * Pap Smear (10/28/2023 12:00 AM EDT) Swab Cervical swab / Unknown Jonathan Elizabeth DO LAB CYTOLOGY ORDERABLES Final Re sult EXTERNAL LAB documented in this encounter Visit Diagnoses Not on filedocumented in this encounter Additional Health Concerns Assessment Noted Time PHQ-9 Depression Total Score: 0 01/26/20 23 3:00 PM EST documented as of this encounter Care Teams Technical Instructor Relationship Specialty Start Date End Date Love Madison MD [address] [place] [address] PCP - General Family Medicine 01/25/23 04/12/24 Chey Bennett MD [address] [facility] [place] [address] PCP - General Family Medicine 04/13/24 Ashley Corcoran NP [address] [facility] [place] [address] Nurse Practitioner Family Medicine 01/25/23 04/19/24 Nory Taylor NP [address] [facility] [place] [address] Nurse Practitioner Family Medicine 04/20/24 Marcial Mcclure DO [address] [place], [place] [address] Referring Physician Neurology 06/18/24 documented as of this encounter
--- OUTSIDE RECORDS SUMMARY | 2024-09-16 10:48 | XMS_ITS | Encounter Summary ---
Author Organization [facility] Address [address] [facility] [place] [address] Care Team Providers Care Bread Icer Name Role Phone Chey Bennett MD Primary Care Provider [phone] Nory Taylor NP Unavailable [phone] Marcial Mcclure DO Unavailable [phone] Encounter Details Date Type Department Care Team (Late st Contact Info) Description 04/20/2024 External Result Encounter [facility] External Department Unsolicited Nory Taylor NP [address], [place] [phone] Social History Tobacco Use Types Packs/Day Years [...] EDT Office Visit [facility] [address] [facility] [place] [address] Jonathan Elizabeth DO [address] [facility] [place] [address] documented as of this encounter Procedures Procedure Name Priority Date/Time Associated Diagnosis Comments ECG 12-LEAD 04/20/2024 12:00 PM EST documented in this encounter Results * ECG 12 lead (04/20/2024 12:00 PM EST) 04/20/2024 12:0 0 PM EST Narrative [facility] - 04/20/2024 6:38 PM EST [facility] Main [address] [address] Electrocardiograph Report Signed Patient: Gaye Bird MR#: [id number] : 2000 Acct:[id number] Age/Sex: 23 / F ADM Date: 04/20/24 Loc: Room: Type: [facility] Attending Dr: Nory TRIPATHI Ordering Provider: Nory Taylor CNP Date of Service: 04/20/24/ ECG/ECG 12 lead ECG: Tachycardia. Epilepsy. Copies to: Test Reason : Blood Pressure : */* mmHG Vent. Rate : 66 BPM Atrial Rate : 66 BPM P-R Int : 122 ms QRS Dur : 80 ms QT Int : 394 ms P-R-T Axes : 266 -20 253 degrees QTcB Int : 413 ms Ectopic atrial rhythm Cannot rule out inferior infarct Abnormal ECG Confirmed by Hannah Rajan ([id number]) on 04/20/2024 6:37:52 PM Referred By: Electronically Signed By: Hannah Rajan Transcribed By: MUS Signed By Hannah Rajan MD [id number] Procedure Note Hannah Rajan MD - 04/20/2024 [facility] Main [place] [address] [place] [address] Electrocardiograph Report Signed Patient: Gaye Bird LMR#: [id number] : 2000Acct:[id number] Age/Sex: 23 / FADM Date: 04/20/24 Loc: Room:Type: [facility] Attending Dr: Nory Taylor COUNSELING PSYCHOLOGIST-C Ordering Provider: Nory Taylor CNP Date of Service: 04/20/24/ ECG/ECG 12 lead ECG: Tachycardia. Epilepsy. Copies to: Test Reason : Blood Pressure : */* mmHG Vent. Rate : 66 BPM Atrial Rate : 66 BPM P-R Int : 122 ms QRS Dur : 80 ms QT Int : 394 ms P-R-T Axes : 266 -20 253 degrees QTcB Int : 413 ms Ectopic atrial rhythm Cannot rule out inferior infarct Abnormal ECG Confirmed by Hannah Rajan ([id number]) on 04/20/2024 6:37:52 PM Referred By: Electronically Signed By: Hannah Rajan Transcribed By: MUS Signed By Hannah Rajan MD 5 [id number] us Nory Taylor NP ECG ORDERABLES Final Resu lt [address] [address], documented in this encounter Visit Diagnoses Not on filedocumented in this encounter Additional Health Concerns Assessment Noted Time PHQ-9 Depression Total Score: 0 04/13/19 4:00 PM EST documented as of this encounter Care Teams Bread Icer Relationship Specialty Start Date End Date Chey Bennett MD PCP - General Family Medicine 04/13/24 Nory Taylor NP [address] [place] [address] Nurse Practitioner Family Medicine 04/20/24 Marcial Mcclure DO [address] [place] [address] Referring Physician Neurology 06/18/24 documented as of this encounter
--- OUTSIDE RECORDS SUMMARY | 2024-09-16 10:48 | XMS_ITS | Clinical Summary ---
Author Organization [employer] tem Address [id number] [address] [place] [address] Care Team Providers Care Jammer Hooker Name Role Phone No Pcp, No Pcp Primary Care Provider Unavailabl e Allergies Active Allergy Reactions Criticality Noted Date Comments No Known Drug Allergies 12/19/2016 Medications metFORMIN XR (GLUCOPHAGE XR) 500 mg 24 hr tablet 2 Active buPROPion XL (WELLBUTRIN XL) 150 mg 24 hr tabletIndicatio ns:Anxiety and depression Take 1 tablet (150 mg total) by mouth in the morning. 90 tablet 2 Active bacitracin zinc ointment Apply 1 Application topically in the morning and 1 Application before bedtime. 120 g 3 Active Active Problems Problem Noted Date Diagnosed Date Juvenile myoclonic epilepsy, not intractable, with status epilepticus 09/28/2020 Recurrent major depression in partial remission 09/28/2020 Anxiety and depression 03/16/2020 Concussion with loss of consciousness of 30 braulio ramu or less 10/30/2018 Immunizations Immunization Administration Dates Next Due DTaP 06/10/2007,01/24/2004 DTaP / Hep B / IPV 2002 DTaP, Unspecified 06/11/2003,03/19/2003 Hep B / HIB 06/11/2003 Hep B, Adolescent or Pediatric 06/19/2022,2002 Hepatitis B 07/20/2022 HiB 03/19/2003 Hib (PRP-T) 11/18/2003,2002 IPV 06/10/2007,06/11/2003,03/19/2003 Influenza, Injectable, quadr ivalent (PF) 01/06/2021(Deferred: Patient decision) MMR 06/10/2007,11/18/2003 Meningococcal Conjugate 09/30/2020 Meningococcal, Unspecified 06/14/2015 Pneumococcal Conjugate 11/18/2003,2002 Tdap 05/27/2015 Social History Tobacco Use Types Packs/Day Years Used Date Smoking Tobacco: Never Smokeless Tobacco: Never Tobacco Cessation:Counseling Given: Not Answered Alcohol Use Standard Drinks/Week Comments Yes 0 (1 standard drink = 0.6 oz pur e alcohol) socially PHQ-2 Answer Date Recorded Total Score 2 12/19/2021 Childcare Answer Date Recorded Childcare Unknown 07/28/2018 Employment Answer Date Recorded Employment Unknown 07/28/2018 Hunger Screening Answer Date Recorded Within the past 12 months we worried whether our food would run out before we got money to buy more. Never True 01/19/2023 Within the past 12 months th e food we bought just didn't last and we didn't have money to get more. Never True 01/19/2023 Purpose - Life Answer Date Recorded Purpose and direction in life Unknown Comments No Sex and Gender Information Value Date Recorded Sex Assigned at Female 12/24/2023 3:54 PM EST Legal Sex Female 12:18 PM EDT Gender Identity Female 12/24/2023 3:54 PM EST Sexual Orientation Straight 12/24/2023 3: 54 PM EST Last Filed Vital Signs Vital Sign Reading Time Taken Comments Blood Pressure 133/83 01/19/2023 10:32 AM EST Pulse 98 01/19/2023 11:38 AM EST Temperature 36.9 C (98.5 F) 01/19/2023 10:32 AM EST Respiratory Rate 18 01/19/2023 11:38 AM EST Oxygen Saturation 99% 01/19/2023 11:38 AM EST Inhaled Oxygen Concentration - - Weight 70.1 kg (154 lb 9.6 oz) 08/08/2022 10:05 AM EDT Height 152.4 cm (5') 08/08/2022 10:05 AM EDT Body Mass Index 30.19 08/08/2022 10:05 AM EDT Plan of Treatment Health Maintenance Due Date Last Done Comments Chlamydia Screening 2002 Depression Screening 12/19/2022 12/19/2021 Adult BMI Screening 08/09/2023 08/08/2022 COVID-19 Vaccine (3 - 2023-2 5 season) 2023 05/25/2021, 05/04/2021 Pap Smear 10/23/2023 Tobacco Screening 01/20/2024 01/19/2023 Influenza Vaccine 10/19/2024 12/10/2022 DTaP,Tdap and Td Vaccines (7 - Td or Tdap) 05/26/2025 05/27/2015, 06/10/2007, 01/24/2004, Additional history exists Medical Devices Not on file Insurance [facility] AETNA AETNA [facility] AENA ANTHEM Care Teams Jammer Hooker Relationship Specialty Start Date End Date No Pcp, [place] [address] PCP - General Family Medicine 01/19/23
--- OUTSIDE RECORDS SUMMARY | 2024-09-16 10:48 | XMS_ITS | Encounter Summary ---
Author Organization [employer] tem Address [id number] [address] 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 She stated she needs MMR titis, vercella and hep b antibodies. * Telephone Encounter - CANDELARIO Pride - 05/30/2022 1:09 PM EDT Will patient need a physical as well? If so, the test can be ordered at that visit. documented in this encounter Plan of Treatment Not on file documented as of this encounter Visit Diagnoses Not on filedocumented in this encounter Additional Health Concerns Assessment Noted Time PHQ-9 Depression Total Score: 2 12/20/19 22 10:16 AM EDT documented as of this encounter Care Teams Physician Assistant Psychiatry Relationship Specialty Start Date End Date No Pcp, No Pcp [place] [address] PCP - General Family Medicine 01/19/23 documented as of this encounter
--- OUTSIDE RECORDS SUMMARY | 2024-09-16 10:48 | XMS_ITS | Encounter Summary ---
Author Organization [employer] Address [id number] [address] [place] [address] Care Team Providers Care Mechanical Spreader Operator Name Role Phone No Pcp, No Pcp Primary Care Provider Unavailabl e Encounter Details Date Type Department Care Team (Late st Contact Info) Description 06/19/20[facility] [address] [place] [phone] Johny Mooney CMA Social History Tobacco Use [...] Telephone Encounter - Johny Mooney CMA - 06/19/2022 10:07 AM EDT ----- Message from CANDELARIO Pride sent at 06/19/2022 10:04 AM EDT ----- Normal Abdominal Xray- Patient can start the imodium after she submits the stool culture * Telephone Encounter - Johny Mooney CMA - 06/19/2022 10:07 AM EDT Patient was called and given results, she stated she understood and would start the imodium after her sample was submitted. No further questions at this time. documented in this encounter Plan of Treatment Not on file documented as of this encounter Visit Diagnoses Not on filedocumented in this encounter Additional Health Concerns Assessment Noted Time PHQ-9 Depression Total Score: 2 12/20/19 22 10:16 AM EDT documented as of this encounter Care Teams Mechanical Spreader Operator Relationship Specialty Start Date End Date No Pcp, [place] [address] PCP - General Family Medicine 01/19/23 documented as of this encounter
--- OUTSIDE RECORDS SUMMARY | 2024-09-16 10:48 | XMS_ITS | Encounter Summary ---
Author Organization [facility] Address [address] [place] [address] Care Team Providers Care Corporate Executive Chef Name Role Phone Chey Bennett MD Primary Care Provider Nory Taylor TANK CAR MECHANIC Unavailable [phone] Marcial Mcclure DO Unavailable [phone] Encounter Details Date Type Department Care Team (Late st Contact Info) Description 05/19/[address] [facility] Family Medicine [address] [place] [address] Unallocated, [facility] Provider, [address] [place] [address] Social History Tobacco Use Types Packs/Day Years [...] Visit [facility] [address] [facility] [place] [address] Jonathan Elizabeth DO [address] [facility] [place] [address] documented as of this encounter Procedures Procedure Name Priority Date/Time Associated Diagnosis Comments ECHO TRANSTHORACIC STRESS Routine 2024 12:07 PM EDT documented in this encounter Results * ECHO TRANSTHORACIC STRESS (05/19/2024 12:07 PM EDT) Anatomical Region Laterality Modality Radiographic Alicia ging us [facility] Provider Unallocated IMG XR PROCEDURES F inal Result documented in this encounter Visit Diagnoses Not on filedocumented in this encounter Additional Health Concerns Assessment Noted Time PHQ-9 Depression Total Score: 0 04/13/19 4:00 PM EST documented as of this encounter Care Teams Corporate Executive Chef Relationship Specialty Start Date End Date Sabrina, Chey Holly MD PCP - General Family Medicine 04/13/24 Nory Taylor, TANK CAR MECHANIC [address] [place] [address] Nurse Practitioner Family Medicine 04/20/24 Marcial Mcclure DO [address] [place] [address] Referring Physician Neurology 06/18/24 documented as of this encounter
--- OUTSIDE RECORDS SUMMARY | 2024-09-16 10:48 | XMS_ITS | Encounter Summary ---
Author Organization [facility] Address [facility][id number] [address] [place] [address] Care Team Providers Care Business Banking Sales Assistant Name Role Phone No Pcp, No Pcp Primary Care Provider Unavailabl e Reason for Visit * Reason Onset Date Comments Med Refill Med Refill 03/15/2020 Encounter Details Date Type Department Care Team (Late st Contact Info) Description 03/14/2020 Refill [facility] Family Medicine [address] [place] [address] [place] [address] Bri [place], FINANCIAL [employer] BRANCH MANAGER-[facility] [address] [id number] Anxiety and depression Social History Tobacco Use [...] or suspected to have Coronavirus / COVID-19? Yes 03/16/2020 8:17 AM EST documented as of this encounter Miscellaneous Notes * Telephone Encounter - Jalen Chung CMA - 03/14/2020 9:24 AM EST Gaye said that she took her last dose of her lexapro last night and that she's completely out. She said that the pharmacy tried to reach out to us earlier, but we didn't get it. I got her scheduled to see you tomorrow because she hasn't seen you since 07/2020. Jalen Chung CMA 03/15/20 1632 documented in this encounter Plan of Treatment Not on file documented as of this encounter Visit Diagnoses Diagnosis Anxiety and depression documented in this encounter Additional Health Concerns Assessment Noted Time PHQ-9 Depression Total Score: 20 020 8:00 AM EDT documented as of this encounter Care Teams Business Banking Sales Assistant Relationship Specialty Start Date End Date No Pcp, [place] [address] PCP - General Family Medicine 01/19/23 documented as of this encounter
--- OUTSIDE RECORDS SUMMARY | 2024-09-16 10:48 | XMS_ITS | Clinical Summary ---
Author Organization [facility] Address [address] [place] [address] Care Team Providers Care Bar Machine Operator Name Role Phone Unavailable Primary Care Provider Unavailabl e Allergies No known active allergies Medications * This document contains information received from the source organization and may not represent a complete record from that organization. metFORMIN ER (GLUCOPHAGE XR) 500 mg 24 hr tablet Take 1,000 mg by mouth daily with breakfast. 10/29/19 22 Active midazolam (NAYZILAM) 5 mg/spray (0.1 mL) nasal sprayIndication s:Juvenile myoclonic epilepsy, not intractable, with status epilepticus (HCC) Use 1 spray in one nostril as needed for seizures lasting longer than 2 minutes. May repeat dose in alternate nostril after 10 minutes based on response and tolerability. 2 Each 1 12/18/19 24 025 Active venlafaxine ER (EFFEXOR XR) 37.5 mg 24 hr capsule Take 37.5 mg by mouth once daily. 01/02/20 24 Active magnesium hydroxide (MAGNESIA ORAL) Take 500 mg by mouth once daily. Active folic acid 1 mg tabletIndicatio ns:Juvenile myoclonic epilepsy, not intractable, with status epilepticus (HCC) Take 2 tablets by mouth once daily. 180 tablet 3 02/13/20 24 025 Active lamoTRIgine (LAMICTAL) 100 mg tablet Take 1 tablet by mouth two times a day. Take with 25 mg tablet. 180 tablet 3 01/15/ 026 Active lamoTRIgine (LAMICTAL) 25 mg tablet Take 2 tablets by mouth two times a day. Take with 100 mg tablet for a total of 150 mg twice daily. 360 tablet 3 03/05/19 25 026 Active zonisamide (ZONEGRAN) 100 mg capsule TAKE 3 CAPSULES BY MOUTH AT BEDTIME 270 capsule 08/19/19 25 Active zonisamide (ZONEGRAN) 100 mg capsule Take 3 capsules by mouth daily at bedtime. 270 capsule 05/23/19 25 025 Discontinued Active Problems Problem Noted Date Diagnosed Date Juvenile myoclonic epilepsy, not intractable, with status epilepticus 09/28/2020 Recurrent major depression in partial remission 09/28/2020 Encounters Date Type Department Care Team Description 08/18/2024 Refill Neurology [address] [place] [address] Adrianna Brito PA-C Refill Request 08/17/2024 Refill Neurology [address] [place] [address] Adrianna Brito PA-C Refill Request from Last 3 Months Social History Tobacco Use Types Packs/Day Years Used Date Smoking Tobacco: Never Passive Smoke Exposure: Never Smokeless Tobacco: Never Tobacco Cessation:Counseling Given: No PHQ-2 Answer Date Recorded PHQ-2 score 0 11/12/2023 Area Deprivation Index Answer Date Wally rded National Score (1-100), lower number is lower ri sk 81 02/01/2023 State Score (1-10), lower number is lower risk 7 02/01/2023 Data from: https://www.neighborhoodatlas.[facility].edu/. Last address used for calculation [address] 02/01/2023 Comments No Sex and Gender Information Value Date Recorded Sex Assigned at Female 03/10/2021 6:50 AM EST Legal Sex Female 8:23 AM EDT Gender Identity Female 03/10/2021 6:50 AM EST Sexual Orientation Straight 03/10/2021 6: 50 AM EST Last Filed Vital Signs Vital Sign Reading Time Taken Comments Blood Pressure 114/68 01/09/2024 2:30 PM EST Pulse 62 01/09/2024 2:30 PM EST Temperature 36.4 C (97.6 F) 08/13/2023 1:46 PM EDT Respiratory Rate 18 01/09/2024 2:30 PM EST Oxygen Saturation 98% 01/09/2024 2:30 PM EST Inhaled Oxygen Concentration - - Weight 70.3 kg (155 lb) 01/09/2024 2:30 PM EST Height 152.4 cm (5') 01/09/2024 2:30 PM EST Body Mass Index 30.27 01/09/2024 2:30 PM EST Plan of Treatment Health Maintenance Due Date Last Done Comments Peds To Adult Transition Ini tial Discussion 2014 Peds To Adult Transition Adrianna ual Assessment 2016 HPV Vaccine (1 - 3-dose series) 2017 Meningococcal B Vaccine (1 o f 2 - Standard) 2018 Anxiety Screening 2020 Chlamydia Screening (18-24) 2020 GC (Gonorrhea) Screening (18-24) 2020 HIV Screening 2020 Hepatitis C Screening 2020 Cervical Cancer Screening 10/23/2023 Influenza Vaccine (#1) 2024 12/11/2023, 2022 DTaP,Tdap,Td Vaccine (7 - Td or Tdap) 05/26/2025 05/27/2015, 06/10/2007, 01/24/2004, Additional history exists Hepatitis B Vaccine Completed 07/20/2022, 06/19/2022, 06/11/2003, Additional history exists Insurance [facility] BLUE ACCESS PPO
--- OUTSIDE RECORDS SUMMARY | 2024-09-16 10:48 | XMS_ITS | Encounter Summary ---
Author Organization [facility] tem Address [id number] [address] [place] [address] Care Team Providers Care Boom Operator Name Role Phone No Pcp, No Pcp Primary Care Provider Unavailabl e Encounter Details Date Type Department Care Team (Late st Contact Info) Description 06/14/2022 [facility] [address] [place] [phone] Johny Mooney CMA Social History Tobacco Use [...] Telephone Encounter - Johny Mooney CMA - 06/14/2022 1:20 PM EDT ----- Message from CANDELARIO Pride sent at 06/14/2022 10:24 AM EDT ----- Patient is showing immunities for MMR, & Varicella. She is not showing immunities for HepB - The patient can schedule nurse visit to starte the 3 step series here or at the Health Dept. * Telephone Encounter - Johny Mooney CMA - 06/14/2022 1:20 PM EDT ----- Message from CANDELARIO Pride sent at 06/14/2022 10:24 AM EDT ----- Patient is showing immunities for MMR, & Varicella. She is not showing immunities for HepB - The patient can schedule nurse visit to starte the 3 step series here or at the Health Dept. * Telephone Encounter - Johny Mooney CMA - 06/14/2022 1:20 PM EDT Patient stated she understood, she requested to start hep b series after appointment 05/20/22. documented in this encounter Plan of Treatment Not on file documented as of this encounter Visit Diagnoses Not on filedocumented in this encounter Additional Health Concerns Assessment Noted Time PHQ-9 Depression Total Score: 2 12/20/19 22 10:16 AM EDT documented as of this encounter Care Teams Boom Operator Relationship Specialty Start Date End Date No Pcp, [place] [address] PCP - General Family Medicine 01/19/23 documented as of this encounter
--- OUTSIDE RECORDS SUMMARY | 2024-09-16 10:48 | XMS_ITS | Encounter Summary ---
Author Organization [facility] tem Address [facility]-[id number] [address] [place] [address] Care Team Providers Care Matcher Name Role Phone No Pcp, No Pcp Primary Care Provider Unavailabl e Encounter Details Date Type Department Care Team (Late st Contact Info) Description 10/29/2018 Telephone [facility] [address] [place] [address] [place] [phone] Grace Van CMA Social History Tobacco Use Types Packs/Day Years Used Date Smoking Tobacco: Never Smokeless Tobacco: Never Alcohol Use Standard Drinks/Week Comments No 0 (1 standard drink = 0.6 oz pur e alcohol) Childcare Answer Date Recorded Childcare Unknown 07/28/2018 Employment Answer Date Recorded Employment Unknown 07/28/2018 Comments No Sex and Gender Information Value Date Recorded Sex Assigned at Female 12/24/2023 3:54 PM EST Legal Sex Female 12:18 PM EDT Gender Identity Female 12/24/2023 3:54 PM EST Sexual Orientation Straight 12/24/2023 3: 54 PM EST documented as of this encounter Plan of Treatment Not on file documented as of this encounter Visit Diagnoses Not on filedocumented in this encounter Care Teams Matcher Relationship Specialty Start Date End Date No Pcp, [place] [address] PCP - General Family Medicine 01/19/23 documented as of this encounter
--- OUTSIDE RECORDS SUMMARY | 2024-09-16 10:48 | XMS_ITS | Encounter Summary ---
Author Organization [facility] Address [address] [place] [address] Care Team Providers Care Technology Training Associate Name Role Phone Chey Bennett MD Primary Care Provider [phone] Nory Taylor SURFACE SUPPLY BREATHING APPARATUS Unavailable [phone] Marcial Mcclure DO Unavailable [phone] Encounter Details Date Type Department Care Team (Late st Contact Info) Description 06/01/2024 Orders Only [facility] Family Medicine [address] [place] [address] Ashley Webb MA Tachycardia; Seizures (HCC); Ectopic atrial rhythm; Abnormal EKG Social History Tobacco Use Types Packs/Day Years [...] 11:00 AM EDT Office Visit [facility] [place] [address] [facility] [place] [phone] Jonathan Elizabeth DO [address] [facility] [address] [place] [address] documented as of this encounter Visit Diagnoses Diagnosis Tachycardia Unspecified tachycardia Seizures (HCC) Other convulsions Ectopic atrial rhythm Abnormal EKG Nonspecific abnormal electrocardiogram (ECG) (EKG) documented in this encounter Additional Health Concerns Assessment Noted Time PHQ-9 Depression Total Score: 0 04/13/19 25 4:00 PM EST documented as of this encounter Care Teams Technology Training Associate Relationship Specialty Start Date End Date Chey Bennett MD PCP - General Family Medicine 04/13/24 Nory Taylor NP [address] [place] [address] Nurse Practitioner Family Medicine 04/20/24 Marcial Mcclure DO [address] [place] [id number] Referring Physician Neurology 06/18/24 documented as of this encounter
[2024-09-17 06:08] LABS: HSV 1 IgG, Type Spec Non Reactive (Non Reactive); HSV 2 IgG, Type Spec Non Reactive (Non Reactive)
== END 2024-09-16 10:43 | disposition home or self-care (01) ==
LOC: LAB 10:46
PROVIDERS: PCP Nurse Practitioner Family; Visit Provider Nurse Practitioner Family
DX: Z20.2 Contact with and (suspected) exposure to infections with a predominantly sexual mode of transmission (principal)
CPT/HCPCS: 36415; 86695; 86696; 87340; 87389

== ENCOUNTER 2024-10-06 10:50 | Outpatient (OUT) | payer BC, OTHER, SELFPAY ==
--- OUTSIDE RECORDS SUMMARY | 2024-10-06 14:14 | XMS_ITS | CCD ---
Author Organization [facility] Care Team Providers Care Machine Inspector Name Role Phone Unavailable Primary Care Provider UnavailCarlota CHOWDARY, CARLA Attending Unavailable HOLLAND CHOWDARY, CARLA Referring Unavailable ASHLEY CORCORAN Attending Unavailable ASHLEY CORCORAN Attending Unavailable Unavailable Primary Care Provider UnavailTHAO Winston Attending Unavailable HOLLAND CHOWDARY, CARLA Referring Unavailable BEULAH Gibson Attending Provider [phone] Unavailable Primary Care Provider UnavailAshley Yuan NP Unavailable Love Madison MD Primary Care Provider NO FAMILY, PHYSICIAN Primary Care Provider Unava ilable TOO Manrique Emergency Provider [phone] NO FAMILY, PHYSICIAN Primary Care Provider Unava ilable Moreno Alvarez [facility] Baldev Attending Provider Moreno [facility] Baldev HARPER Attending Provider Valdez Manrique PA-C Emergency Provider [phone] Jimmy Donis DO Emergency Provider [phone] Chey Bliss MD Primary Care Provider DAISY DE LEON Attending Unavailable DAISY DE LEON Referring Unavailable CARLA RICO Referring Unavailable HOLLAND CHOWDARY, CARLA Attending Unavailable DAISY DE LEON Attending Unavailable Nory Aguilar NP Unavailable NO FAMILY, PHYSICIAN Primary Care Provider Unava ilable Valdez Manrique PA-C Emergency Provider [phone] Nory Uribe Primary Care Provider [phone] Nory Uribe Attending Provider NO FAMILY, PHYSICIAN Primary Care Provider Unava ilable Jimmy Donis DO Emergency Provider Valdez Manrique PA-C Emergency Provider Brandon CHEMISTRY SPECIALIST-[facility] Primary Care Provider Brandon CHEMISTRY SPECIALIST[facility] Attending Provider Gabi Mcclure DO Unavailable Jimmy Donis Admitting Unavailable Jimmy Donis Attending Unavailable NO FAMILY, PHYSICIAN Primary Care Unavailable NO FAMILY, PHYSICIAN Primary Care Unavailable Valdez Manrique Admitting Unavailable Valdez Manrique Attending Unavailable Brandon, Nory Primary Care Unavailable Nory Aguilar Attending Unavailable Nory Aguilar Admitting Unavailable Aguilar, Nory Primary Care Unavailable Nory Aguilar Attending Unavailable Nory Aguilar Admitting Unavailable Moreno - Baldev FIERRO Admitting Unavailable Kimos - Baldev FIERRO P Attending Unavailable NO FAMILY, PHYSICIAN Primary Care Unavailable NO FAMILY, PHYSICIAN Primary Care Unavailable Valdez Manrique Admitting Unavailable Valdez Manrique Attending Unavailable Chey Bliss MD Primary Care Provider Gabi Mcclure DO Unavailable Brandon [facility] Primary Care Provider Gabi Mcclure DO Attending Provider Kathryn Tabor Attending Unavailable Kathryn Tabor Attending Unavailable NORY AGUILAR Attending Unavailable GABI MCCLURE Attending Unavailable CHEY BLISS Referring Unavailable JONATHAN ELIZABETH Attending Unavailable JENNIFER RENDON Attending Unavailable JONATHAN ELIZABETH Attending Unavailable ANDREAS SAMSON Attending Unavailable Allergies Allergy Classification Reported Allergen(s) Allergy Type Date of Onset Reaction(s) Facility (1 source) No Known Medication Allergies; Translations: [No Known Medication Allergies] Propensity to adverse reactions to drug (disorder) [facility] Repository Medications Current Medications Medication Drug Class(es) Dates Sig (Normalized) Sig (Original) amoxicillin 500 mg oral capsule (1 source) Penicillin-class Antibacterial Start: 05-28-2024 take 1 capsule by mouth twice daily azithromycin 500 mg oral tablet (3 sources) Macrolide Antimicrobial Start: 09-18-2024 take 1 tablet by mouth once daily azithromycin (Zithromax) 500 MG tablet Indications: Bacterial infection due to mycoplasma Day 1: Take 2 tablets PO onetime dose; Day 2,3,4: Take 1 tablet daily 5 tablet 09/18/2024 Active Boric Acid 600 MG suppository (3 sources) Start: 09-16-2024 End: 09-30-2024 Boric Acid 600 MG suppository Indications: BV (bacterial vaginosis) Insert 1 suppository into the vagina Daily for 14 days 14 suppository 09/16/2024 09/30/2024 Active 24 hr buPROPion hydrochloride 150 mg extended release oral tablet (20 sources) Aminoketone Start: 06-14-2023 take 1 tablet by mouth once daily Bupropion Hcl 150 mg tablet extended release 24 hr Active 150 MG PO Daily June 14, 2023 12:00am Complies with drug therapy Start: 06-14-2023 Bupropion Hcl Active MG PO June 13, 2023 11:00pm Start: 12-19-2021 End: 02-20-2024 take 1 tablet by mouth every twenty-four hours in the morning buPROPion XL (Wellbutrin XL) 150 MG 24 hr tablet Indications: Depression with anxiety Take 1 tablet (150 mg) by mouth in the morning. 90 tablet 3 02/20/2023 02/20/2024 Active Comment on above: Take 150 mg by mouth . clobetasol propionate 0.5 mg/ml topical cream (2 sources) Corticosteroid Start: 10-07-19 End: 10-21-19 clobetasol (Temovate) 0.05 % cream Indications: Vaginal lesion Apply 1 application topically Daily for 14 days 45 g 10/06/2024 10/20/2024 Active Ethinyl Estradiol / Ferrous fumarate / Norethindrone (13 sources) Estrogen Start: 08-27-19 take 1 tablet by mouth once daily norethindrone-ethin yl estradiol-iron (Lo Loestrin Fe) 1 MG-10 MCG / 10 MCG tablet Indications: Menorrhagia with irregular cycle Take 1 tablet by mouth Daily for 28 days Take 1 tablet by mouth daily 28 tablet 11 08/26/2024 Active Start: 08-26-2024 End: 09-23-2024 take 1 tablet by mouth once daily norethindrone-ethinyl estradiol-iron (Lo Loestrin Fe) 1 MG-10 MCG / 10 MCG tablet Indications: Menorrhagia with irregular cycle Take 1 tablet by mouth Daily for 28 days Take 1 tablet by mouth daily 28 tablet 11 08/26/2024 09/23/2024 Active Start: 11-19-2022 End: 2023 take 1 tablet by mouth in the morning Blisovi FE 03/09 1-20 MG-MCG tablet Indications: control counseling Take 1 tablet by mouth in the morning. 28 tablet 12 11/19/2022 2023 Discontinued (Therapy completed) folic acid 1 mg oral tablet (20 sources) Start: 06-14-2023 Folic Acid Act nazario PO June 13, 2023 11:00pm Start: 06-14-2023 Folic Acid Act nazario PO June 14, 2023 12:00am Start: 11-28-2022 folic acid (Fo lvite) 1 MG tablet 11/28/2022 Active Start: 12-01-2020 End: 02-12-2025 take 2 tablets by mouth once daily folic acid 1 mg tablet Indications: Juvenile myoclonic epilepsy, not intractable, with status epilepticus (HCC) Take 2 tablets by mouth once daily. 180 tablet 3 02/13/2024 02/12/2025 Active Comment on above: Take 2 tablets by mo [facility] once daily. lamoTRIgine 100 mg oral tablet (20 sources) Mood Stabilizer, Anti-epileptic Agent Start: 03-05-2024 End: 03-05-2025 take 2 tablets by mouth twice daily lamoTRIgine (LAMICTAL) 25 mg tablet Take 2 tablets by mouth two times a day. Take with 100 mg tablet for a total of 150 mg twice daily. 360 tablet 3 03/05/2024 03/05/2025 Active Start: 03-04-2024 End: 03-04-2025 Lamotrigine 100 mg tablet Ac tive MG PO May 28, 2024 12:00am Complies with drug therapy Start: 03-04-2024 End: 03-04-2025 take 1 tablet by mouth twice daily lamoTRIgine (LAMICTAL) 25 mg tablet Take 1 tablet by mouth two times a day. Take with 100 mg tablet for a total of 125 mg twice daily. 180 tablet 3 03/04/2024 03/05/2024 Discontinued Start: 11-13-2023 End: 11-12-2024 take 1 tablet by mouth two times weekly lamoTRIgine (LAMICTAL) 25 mg tablet Take 1 tablet by mouth two times a day. Week 1 and 2: 25 mg once per day. Week 3 and 4: 25 mg twice per day. Week 5: 25 mg AM, 50 mg PM, Week 6: 50 mg twice per day. Week 7: 50 mg AM, 75 mg PM, Week 8: 75 mg twice per day, Week 9: 75 mg AM, 100 mg PM, Week 10: 100 mg twice per day. Week 11: 100 mg AM, 125 mg PM, Week 12: 125 mg twice per day. Then continue 125 mg twice per day. 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 60 tablet 5 06/18/2024 06/18/2025 Active Magnesium Hydroxide (16 sources) take 500 mg by mouth once daily magnesium hydroxide (MAGNESIA ORAL) Take 500 mg by mouth once daily. Active magnesium oxide 500 mg oral capsule (14 sources) End: 09-16-2024 Magnesium Oxide -Mg Supplement (RA Magnesium) 500 MG capsule Take by mouth 09/16/2024 Discontinued 24 hr metFORMIN hydrochloride 500 mg extended release oral tablet (20 sources) Biguanide Start: 03-19-2024 End: 03-14-2025 take 2 tablets by mouth every twenty-four hours at mealtime metFORMIN XR (Glucophage-XR) 500 MG 24 hr tablet Indications: Insulin resistance Take 2 tablets (1,000 mg) by mouth in the evening. Take with meals Do not crush, chew, or split. 180 tablet 3 03/19/2024 03/14/2025 Active Start: 10-28-2023 End: 01-26-2024 take 2 tablets by mouth every twenty-four hours at mealtime metFORMIN XR (Glucophage-XR) 500 MG 24 hr tablet Indications: Insulin resistance Take 2 tablets (1,000 mg) by mouth in the evening. Take with meals Do not crush, chew, or split. 180 tablet 10/28/2023 12/16/2023 Discontinued (Other) Start: 06-14-2023 take 1 tablet by macho th once daily Metformin 500 mg tablet extended release 24 hr Active 500 MG PO Daily June 14, 2023 12:00am Complies with drug therapy Start: 06-14-2023 Metformin Acti ve MG PO June 13, 2023 11:00pm Start: 06-14-2023 Metformin Acti ve MG PO June 14, 2023 12:00am Start: 02-20-2023 End: 02-20-2024 take 1 tablet by mouth at mealtime metFORMIN (Glucophage) 500 MG tablet Indications: Insulin resistance Take 1 tablet (500 mg) by mouth in the morning. Take with meals. 90 tablet 3 02/20/2023 12/16/2023 Discontinued (Other) Start: 10-28-2021 End: 12-16-2023 take 1 tablet by mouth once daily at breakfast metFORMIN ER (GLUCOPHAGE XR) 500 mg 24 hr tablet Take 1,000 mg by mouth daily with breakfast. 10/28/2021 Active Start: 10-28-2021 metFORMIN ER ( GLUCOPHAGE XR) 500 mg 24 hr tablet metroNIDAZOLE 500 mg oral tablet (3 sources) Nitroimidazole Antimicrobial Start: 08-26-2024 End: 09-02-2024 take 1 tablet by mouth in the morning metroNIDAZOLE (Flagyl) 500 MG tablet Indications: BV (bacterial vaginosis) Take 1 tablet (500 mg) by mouth in the morning and 1 tablet (500 mg) before bedtime. Do all this for 7 days. Do not drink alcohol while taking this medication. 14 tablet 08/26/2024 09/02/2024 Active midazolam 50 mg/ml nasal spray (20 sources) Benzodiazepine Start: 08-27-2024 Midazolam (Nayzilam) 5 mg/spray (0.1 mL) spray,non-aerosol Active INTRANASAL August 27, 2024 12:00am Complies with drug therapy Start: 10-10-2020 End: 12-16-2024 midazolam (NAYZILAM) 5 mg/sp ray (0.1 mL) nasal spray Indications: Juvenile myoclonic epilepsy, not intractable, with status epilepticus (HCC) Use 1 spray in one nostril as needed for seizures lasting longer than 2 minutes. May repeat dose in alternate nostril after 10 minutes based on response and tolerability. 2 Each 1 12/18/2023 12/16/2024 Active Midazolam (Nayzi estrada) 5 MG/0.1ML solution Administer into affected nostril(s) Active Comment on above: Use 1 spray in one n ostril as needed for seizures lasting > 2 minutes. May repeat dose in alternate nostril after 10 minutes based on response and tolerability. Multiple Vitamins-Minerals (MULTIVITAMIN GUMMIES WOMENS PO) (19 sources) Multiple Vitamins-Minerals (MULTIVITAMIN GUMMIES WOMENS PO) Take by mouth Active valACYclovir 1000 mg oral tablet (2 sources) Herpesvirus Nucleoside Analog DNA Polymerase Inhibitor, Herpes Simplex Virus Nucleoside Analog DNA Polymerase Inhibitor, Herpes Zoster Virus Nucleoside Analog DNA Polymerase Inhibitor Start: 10-07-19 End: 10-17-19 take 1 tablet by mouth in the morning valACYclovir (Valtrex) 1 g tablet Indications: Vaginal lesion Take 1 tablet (1,000 mg) by mouth in the morning and 1 tablet (1,000 mg) before bedtime. Do all this for 10 days. 20 tablet 10/06/2024 10/16/2024 Active 24 hr venlafaxine 37.5 mg extended release oral capsule (20 sources) Serotonin and Norepinephrine Reuptake Inhibitor Start: 01-02-20 End: 03-14-19 26 take 1 capsule by mouth once daily venlafaxine XR (Effexor XR) 37.5 MG 24 hr capsule Indications: Anxiety, generalized Take 1 capsule (37.5 mg) by mouth Daily Do not crush or chew. 90 capsule 3 03/19/2024 03/14/2025 Active vitamin b12 1 mg oral tablet (19 sources) Vitamin B12 take 1 tablet by mouth once daily cyanocobalamin (Vitamin B-12) 1000 MCG tablet Take 1,000 mcg by mouth Daily Active zonisamide 100 mg oral capsule (20 sources) Anti-epileptic Agent Start: 04-10-20 25 Zonisamide 100 mg capsule Active MG PO May 28, 2024 12:00am Complies with drug therapy Start: 05-22-2024 End: 08-20-2024 take 3 capsules by mouth at bedtime zonisamide (ZONEGRAN) 100 mg capsule TAKE 3 CAPSULES BY MOUTH AT BEDTIME 270 capsule 08/18/2024 Active Start: 02-06-2024 End: 05-07-2024 take 3 capsules by mouth once daily at bedtime zonisamide (ZONEGRAN) 100 mg capsule Take 3 capsules by mouth daily at bedtime. 270 capsule 02/07/2024 05/07/2024 Active Completed/Discontinued Medications Medication Drug Class(es) Dates Sig (Normalized) Sig (Original) bacitracin zinc 0.5 unt/mg topical ointment (8 sources) Start: 01-19-2023 End: 08-13-2023 bacitracin zinc 500 unit/gram ointment Apply 1 Application to affected area. 0 01/19/2023 08/13/2023 Discontinued Comment on above: Apply 1 Application to affected area. escitalopram 10 mg oral tablet (11 sources) Serotonin Reuptake Inhibitor Start: 09-13-2020 End: 02-01-2023 escitalopram oxalate (LEXAPRO) 10 mg tablet lacosamide 50 mg oral tablet (20 sources) Anti-epileptic Agent Start: 02-10-2024 End: 04-10-2024 lacosamide (VIMPAT) 50 mg tab Indications: Juvenile myoclonic epilepsy, not intractable, with status epilepticus (HCC) Wk 1: 150/200 Wk 2: 150/150 Wk 3: 100/150 Wk 4: 100/100 Wk 5: 50/100 WK 6: 50/50 Wk 7: 50 at bedtime Wk 8: STOP LCM 168 tablet 02/10/2024 03/04/2024 Discontinued Start: 02-06-2024 End: 04-07-2024 lacosamide (VIMPAT) 50 mg ta b Indications: Juvenile myoclonic epilepsy, not intractable, with status epilepticus (HCC) Please follow wean schedule provided via MyChart 168 tablet 02/07/2024 02/10/2024 Discontinued Start: 09-10-2023 End: 09-09-2024 take 1 tablet by mouth twice daily as needed lacosamide (VIMPAT) 200 mg Indications: Juvenile myoclonic epilepsy, not intractable, with status epilepticus (HCC) Take 1 tablet by mouth two times a day for 180 days. 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 180 tablet 1 01/31/2024 02/07/2024 Discontinued Start: 06-14-2023 End: 05-28-2024 take 1 tablet by mouth once daily Lacosamide 150 mg tablet Discontinued 150 MG PO Daily June 14, 2023 12:00am May 28, 2024 5:09pm Start: 06-14-2023 Lacosamide Act nazario MG PO June 13, 2023 11:00pm Start: 06-14-2023 Lacosamide Act nazario MG PO June 14, 2023 12:00am Start: 02-01-2023 End: 02-09-2024 take 1 tablet by mouth twice daily as needed lacosamide (VIMPAT) 150 mg tab Indications: Juvenile myoclonic epilepsy, not intractable, with status epilepticus (HCC) Take 1 tablet by mouth two times a day for 180 days. Take an extra pill of Vimpat as needed if myoclonus occurs 200 tablet 1 08/13/2023 09/10/2023 Discontinued Start: 01-21-2023 End: 01-22-2024 take 1 tablet by mouth twice daily, then take 1 tablet by mouth twice daily lacosamide (VIMPAT) 50 mg tab Indications: Juvenile myoclonic epilepsy, not intractable, with status epilepticus (HCC) Take 1 tablet by mouth two times a day. Take along with 100 mg tablets twice daily = total dose 150 mg twice daily 180 tablet 1 01/21/2023 02/01/2023 Discontinued (Changing Therapy/Dosage Form) Start: 12-01-2020 End: 2023 take 1 tablet by mouth in the morning lacosamide (Vimpat) 100 MG tablet Take 100 mg by mouth in the morning and 100 mg in the evening. 10/27/2021 2023 Discontinued (Therapy completed) Comment on above: Take 1 tablet by macho th twice daily for 180 days. Take 1 tablet by macho th twice daily. Take 1 tablet by macho th two times a day for 180 days. Take 1 tablet by macho th two times a day. Take along with 100 mg tablets twice daily = total dose 150 mg twice daily xg-jz-ebre-FA-Ca carb-vit K (WOMEN'S MULTIVITAMIN) 18 mg-400 mcg- 500 mg-50 mcg tab (11 sources) Start: 10-27-2021 End: 02-01-2023 take 1 tablet by mouth once daily bf-iw-tnba-FA-Ca carb-vit K (WOMEN'S MULTIVITAMIN) 18 mg-400 mcg- 500 mg-50 mcg tab Indications: Juvenile myoclonic epilepsy, not intractable, with status epilepticus (HCC) Take 1 tablet by mouth once daily. 365 tablet 0 10/27/2021 02/01/2023 Discontinued (Course of therapy completed) Start: 10-27-2021 take 1 tablet by macho th once daily ma-hz-ruby-FA-Ca carb-vit K (WOMEN'S MULTIVITAMIN) 18 mg-400 mcg- 500 mg-50 mcg tab Indications: Juvenile myoclonic epilepsy, not intractable, with status epilepticus (HCC) Take 1 tablet by mouth once daily. 365 tablet 0 10/27/2021 Active Start: 10-27-2021 End: 10-27-2022 take 1 tablet by mouth once daily hz-jz-ovys-FA-Ca carb-vit K (WOMEN'S MULTIVITAMIN) 18 mg-400 mcg- 500 mg-50 mcg tab Indications: Juvenile myoclonic epilepsy, not intractable, with status epilepticus (HCC) Take 1 tablet by mouth once daily. 365 tablet 0 10/27/2021 10/27/2022 Active Start: 12-01-2020 End: 10-27-2021 take 1 tablet by mouth once daily yh-lp-pnie-FA-Ca carb-vit K (WOMEN'S MULTIVITAMIN) 18 mg-400 mcg- 500 mg-50 mcg tab Indications: Juvenile myoclonic epilepsy, not intractable, with status epilepticus (HCC) Take 1 tablet by mouth once daily. 365 tablet 0 12/01/2020 10/27/2021 Discontinued Start: 12-01-2020 End: 12-01-2021 take 1 tablet by mouth once daily cq-dd-gqrg-FA-Ca carb-vit K (WOMEN'S MULTIVITAMIN) 18 mg-400 mcg- 500 mg-50 mcg tab Indications: Juvenile myoclonic epilepsy, not intractable, with status epilepticus (HCC) Take 1 tablet by mouth once daily. 365 tablet 0 12/01/2020 12/01/2021 Active Comment on above: Take 1 tablet by macho th once daily. nitrofurantoin, macrocrystals 25 mg / nitrofurantoin, monohydrate 75 mg oral capsule (8 sources) Nitrofuran Antibacterial Start: End: take 1 capsule by mouth every twelve hours at mealtime Nitrofurantoin Monohyd/M-Cryst (Macrobid) 100 mg capsule Discontinued 100 MG PO Every 12 hours 10 June 14, 2023 12:00am March 04, 2024 10:13am must administer with a meal/food ondansetron 4 mg disintegrating oral tablet (4 sources) Serotonin-3 Receptor Antagonist Start: End: take 1 tablet by mouth four times daily as needed for nausea and vomiting Ondansetron 4 mg tablet,disintegrating Discontinued 4 MG PO Four times daily as needed for nausea and vomiting March 16, 2024 1:00am May 28, 2024 5:10pm phenazopyridine hydrochloride 200 mg oral tablet (8 sources) Start: End: take 1 tablet by mouth three times daily as needed Phenazopyridine (Pyridium) 200 mg tablet Discontinued 200 MG PO Three times daily as needed for urinary symptoms 9 June 14, 2023 12:00am March 04, 2024 10:13am promethazine hydrochloride 25 mg oral tablet (4 sources) Phenothiazine Start: End: take 1 tablet by mouth four times daily as needed for nausea and vomiting Promethazine 25 mg tablet Discontinued 25 MG PO Four times daily as needed for nausea and vomiting March 16, 2024 1:00am May 28, 2024 5:10pm Problems Active Problems Problem Classification Problem Date Documented Date Episodic/Chronic Anxiety disorders (20 sources) Anxiety; Translations: [Anxiety disorder, unspecified] Onset: 03-16-2020 06-14-2023 Chronic Cardiac dysrhythmias (3 sources) Tachycardia; Translations: [Tachycardia, unspecified] Onset: 05-18-2024 04-13-2024 Episodic Epilepsy; convulsions (20 sources) Juvenile myoclonic epilepsy; Translations: [Juvenile myoclonic epilepsy, not intractable, with status epilepticus] Onset: 09-28-2020 Chronic Epilepsy; convulsions (13 sources) Seizure; Translations: [Unspecified convulsions] Onset: 03-04-2024 12-22-2023 Episodic Genitourinary symptoms and ill-defined conditions (2 sources) Dysuria; Translations: [Dysuria] 06-14-2023 Episodic Immunizations and screening for infectious disease (12 sources) Patient encounter status; Translations: [Other longterm (current) drug therapy] 12-16-2023 Episodic Immunizations and screening for infectious disease (7 sources) Encounter for immunization; Translations: [Exposure to sexually transmissible disorder] Onset: 12-11-2023 09-16-2024 Episodic Inflammatory diseases of female pelvic organs (4 sources) Bacterial vaginosis; Translations: [Acute vaginitis] 08-26-2024 Episodic Malaise and fatigue (3 sources) Malaise and fatigue; Translations: [Other malaise] Onset: 04-29-2023 04-29-2023 Episodic Menstrual disorders (2 sources) Menometrorrhagia; Translations: [Excessive and frequent menstruation with irregular cycle] 08-26-2024 Chronic Miscellaneous mental health disorders (2 sources) Not getting enough sleep; Translations: [Insufficient sleep syndrome] Onset: 04-29-2023 04-29-2023 Chronic Mood disorders (20 sources) Recurrent major depression in partial remission; Translations: [Major depressive disorder, recurrent, in partial remission] Onset: 09-28-2020 09-28-2020 Chronic Nausea and vomiting (5 sources) Nausea and vomiting; Translations: [Nausea with vomiting, unspecified] Onset: 03-16-2024 03-16-2024 Episodic Nutritional deficiencies (2 sources) Vitamin D deficiency; Translations: [Vitamin D deficiency, unspecified] Onset: 02-01-2023 02-01-2023 Chronic Other endocrine disorders (20 sources) Polycystic ovary syndrome; Translations: [Polycystic ovarian syndrome] Onset: 04-10-2024 04-10-2024 Chronic Other female genital disorders (2 sources) Vaginal discharge; Translations: [Other specified noninflammatory disorders of vagina] 10-06-2024 Episodic Other female genital disorders (2 sources) Vaginal lesion; Translations: [Other specified noninflammatory disorders of vagina] 10-06-2024 Episodic Other nutritional; endocrine; and metabolic disorders (2 sources) Insulin resistance; Translations: [Insulin resistance] 10-28-2023 Chronic Residual codes; unclassified (1 source) Obstructive sleep apnea syndrome; Translations: [Obstructive sleep apnea (adult) (pediatric)] 02-01-2023 Chronic Residual codes; unclassified (1 source) Obstructive sleep apnea (adult) (pediatric); Translations: [MECCA (obstructive sleep apnea)] Onset: 04-21-2023 Chronic Residual codes; unclassified (1 source) Frequent night waking; Translations: [Insomnia, unspecified] 04-29-2023 Episodic Residual codes; unclassified (1 source) Insomnia; Translations: [Insomnia, unspecified] 04-29-2023 Episodic Residual codes; unclassified (1 source) Inadequate sleep hygiene; Translations: [Inadequate sleep hygiene] 04-29-2023 Episodic Residual codes; unclassified (2 sources) Insomnia, unspecified; Translations: [Frequent nocturnal awakening] Onset: 04-29-2023 Episodic Residual codes; unclassified (1 source) Inadequate sleep hygiene; Translations: [Poor sleep hygiene] Onset: 04-29-2023 Episodic Urinary tract infections (9 sources) Acute urinary tract infection; Translations: [Urinary tract infection, site not specified] 06-14-2023 Episodic Past or Other Problems Problem Classification Problem Date Documented Date Episodic/Chronic Intracranial injury (20 sources) Concussion with less than 1 hour loss of consciousness; Translations: [Concussion with loss of consciousness of 30 minutes or less, initial encounter] Onset: 10-30-2018 Resolved: 04-10-2024 04-10-2024 Episodic Mood disorders (20 sources) Mood disorders Onset: 01-25-2023 Resolved: 04-13-2024 01-25-2023 Results Test Name Value Interpretation Reference Range Facility RECURRENT VAGINITIS (HTRX)on 09-18-2024 ATOPOBIUM VAGINAE 16.81 Abnormal [facility] ATOPOBIUM VAGINAE Detected Abnormal [facility] BVAB 2,3 (BACTERIAL VAGINOSIS ASSOCIATED BACTERIA 2, 3); MOBILUNCUS SPP 27.699 Abnormal [facility] BVAB 2,3 (BACTERIAL VAGINOSIS ASSOCIATED BACTERIA 2, 3); MOBILUNCUS SPP Detected Abnormal [facility] CHA ALBICANS, PARAPSILOSIS, TROPICALIS 29.592 Abnormal [facility] CHA ALBICANS, PARAPSILOSIS, TROPICALIS Detected Abnormal [facility] CHA GLABRATA 0 [facility] CHA GLABRATA Not detected [facility] [facility] KRUSEI 0 [facility] CH[facility] KRUSEI Not detected [facility] CHLAMYDIA TRACHOMATIS 0 [facility] CHLAMYDIA TRACHOMATIS Not detected [facility] ERMB, C; MEFA 20.526 Abnormal [facility] Healthcare ERMB, C; MEFA Detected Abnormal [facility] GARDNERELLA VAGINALIS 20.662 Abnormal [facility] Healthcare GARDNERELLA VAGINALIS Detected Abnormal [facility] Healthcare Interpretation and review of laboratory results Abnormal [facility] MEGASPHAERA (TYPES 1, 2) 0 [facility] MEGASPHAERA (TYPES 1, 2) Not detected [facility] MYCOPLASMA GENITALIUM 25.331 Abnormal [facility] MYCOPLASMA GENITALIUM Detected Abnormal [facility] NEISSERIA GONORRHOEAE 0 [facility] NEISSERIA GONORRHOEAE Not detected N [facility] TET B, TET M 18.96 Abnormal [facility] TET B, TET M Detected Abnormal [facility] TRICHOMONAS VAGINALIS 0 [facility] TRICHOMONAS VAGINALIS Not detected N [facility] HIV AB/P24 AG WITH REFLEXon 09-17-2024 HIV AB/P24 AG SCREEN Non-Reactive Non Reactive [facility] Comment on above: HIV-1/HIV-2 antibodi es and HIV-1 p24 antigen were NOT detected. There is no laboratory evidence of HIV infection. HIV Negative Performed at: - [address] [id number] Advertising Material Distributor: Dudley Del Rio PhD, Phone: [phone] [facility] T[facility] Abon 09-08-2024 Treponema Total Ab 0.16 Normal [facility] Comment on above: Performed By: #### C D:[id number] #### [facility] [address] [place] [id number] Treponema Total Ab Interp Negative Normal Negative [facility] Comment on above: Result Comment: No s erologic evidence of syphilis. No follow-up necessary unless clinically indicated (eg, early syphilis). Performed By: #### C D:[id number] #### [facility] [address] [place] [address] Ambulatory Clinical Summaryo n 09-07-2024 Ambulatory Clinical Summary Quentin Bird :2000 Visit Date:09/07/2024 Ambulatory Visit Instructions We would like to thank you for allowing us to assist you with your healthcare needs. The following includes patient education materials and information regarding your injury/illness. After you leave the office, you may get your health information including your test results, physician notes and discharge information by accessing your Patient Portal. If you do not have a patient portal account set up, please contact the [facility] Patient Portal Help Line at . If you have any questions for your healthcare provider following this visit, please contact our office. We're here for you. Your Next Steps You Need to Complete the Following Syphilis Total Antibody Screen (Treponema), Blood, Routine collect, *Est. 09/07/24, Order for future visit, Lab Collect, Concern about STD in female without diagnosis Medications What How Much When Instructions Unchanged folic acid 1 Milligram Oral (given by mouth) Every day Unchanged lamoTRIgine (LaMICtal) Oral (given by mouth) 2 times a day Unchanged levETIRAcetam (Keppra) 2 times a day Unchanged metFORMIN Oral (given by mouth) Unchanged midazolam (Nayzilam) 5 Milligram Nasal (into the nose) Once Unchanged venlafaxine (Effexor XR) Oral (given by mouth) Every day Unchanged zonisamide Oral (given by mouth) Your Summary Your Diagnosis Concern about STD in female without diagnosis Dysuria Tests Performed/Pending [address] AMB Urine Chemistry Analysis POC Your Care Team Attending Physician - Kathryn Tabor Discharge Vitals Temperature (Oral) 99.1 ?F (37.3 ?C) Heart Rate (Peripheral) 79 Respiratory Rate 16 Blood Pressure 116/71 Height 59.84 in (152 cm) Weight 144.43 lb (65.5 kg) Weight (Dosing) 144.43 lb (65.5 kg) BMI 28.35 Allergies No Known Medication Allergies Smoking Cessation Use of and exposure to tobacco causes many health issues. As your partners in health and wellness, we strongly encourage you to quit smoking, vaping and/or chewing tobacco. Secondhand exposure to smoking or vaping is also a health risk for you and those around you. Common Emergency Awareness Tips IS IT A STROKE? Act FAST and Check for these signs: FACE Does the face look uneven? ARM Does one arm drift down? SPEECH Does their speech sound strange? TIME Call at any sign of stroke Heart Attack Signs Chest discomfort: Most heart attacks involve discomfort in the center of the chest and lasts more than a few minutes, or goes away and comes back. It can feel like uncomfortable pressure, squeezing, fullness or pain. Discomfort in upper body: Symptoms can include pain or discomfort in one or both arms, back, neck, jaw or stomach. Shortness of breath: With or without discomfort. Other signs: Breaking out in a cold sweat, nausea, or lightheaded. Remember, MINUTES DO MATTER. If you experience any of these heart attack warning signs, call to get immediate medical attention! Electronically signed by KRIS 09.07.2024 14:11 EDT Normal [facility] OR Trackon 09-07-2024 Specimens Received From [facility] Comment on above: Performed By: #### O trudi Tracking Order #### [address] [address] Urgent Care Office/Clinic No roxanna 09-07-2024 Urgent Care Office/Clinic Note Chief Complaint pt states she would like std testing. denies symptoms History of Present Illness Patient is a 23-year-old female who presents today for STD testing. She states she denies any symptoms at all including urinary frequency, burning with urination, back pain, fever, nausea, vomiting. She was just seen at the [employer] [facility] within the last week and due to ongoing vaginal discharge was tested for trichomonas different forms of candidiasis, Gardnerella, gonorrhea, chlamydia and a couple other items. She came back negative for all of these items and is following up with her [employer] regarding this. She states that there was her boyfriend's ex girlfriend who messaged her and stated that her boyfriend has herpes. Neither her nor her boyfriend have any lesions or outbreaks nor have they ever to her knowledge. She is here for STD testing of all kinds. He states that she has no concern of as she just got off her period yesterday. Review of Systems See HPI Physical Exam Const: Well appearing, no acute distress Eyes: Clear no redness or draining Pharynx: No redness swelling or exudate Neck: No enlarged lymph nodes Heart sounds: Regular rate and rhythm no murmurs Chest: Lungs are clear no wheezes rales or rhonchi Abdomen: flat, no distension, normoactive bowel sounds, no tenderness in suprapubic region, no bilateral CVA tenderness on palpation Additional Vitals No qualifying data available. Assessment and Plan: Dysuria Patient showed me her MyChart and all of the items that the [employer] tested for and all were negative. Today you were tested for syphillis Patient educated that because she has no lesions we are not able to do herpes testing/swabbing at this time. Recommend patient go to the STD clinic for an County for lab work or additional STD testing if she has concerns. Refrain from sexual intercourse until the culture reports return. Notify any sexual partners of positive results. Condom use with every sexual encounter. Refrain from sexual intercourse for 7 days after completion of antibiotics by both you and your partner. For additional STD testing and screening: [facility] [phone] Medical Decision Making Chronic conditions NOT treated during this visit that affected my overall medical decision making: [] Treatment plans discussed but not opted for at this time: [] Prescribed medication that requires intensive monitoring for toxicity: [] I have reviewed the patient?s medication list for medication interactions/contrain dications and/or for upcoming procedures: [yes or no] Time Spent with the Patient I have personally spent 30 minutes on this date, directly related to today's patient visit, including pre and post visit work, for this date of service. Time listed does not include time spent on separately billable services. Problem List/Past Medical History Ongoing Anxiety Depression Epilepsy PCOS (polycystic ovarian syndrome) Historical No qualifying data Medications No active medications Allergies No Known Medication Allergies Lab Results Test Name Test Result Date/Time Urine Color Urine Dipstick Pale yellow 09/07/2024 13:46 EDT Urine Appearance Urine Dipstick Clear 09/07/2024 13:46 EDT Specific [place] Urine Dipstick 1.010 09/07/2024 13:46 EDT pH Urine Dipstick 6 09/07/2024 13:46 EDT Glucose Urine Dipstick Negative 09/07/2024 13:46 EDT Bilirubin Urine Dipstick Negative 09/07/2024 13:46 EDT Nitrite Urine Dipstick Negative 09/07/2024 13:46 EDT Ketones Urine Dipstick Negative 09/07/2024 13:46 EDT UC Blood Urine Dipstick 3+ Large 09/07/2024 13:46 EDT UC Protein Urine Dipstick Negative 09/07/2024 13:46 EDT UC Leukocytes Urine Dipstick Negative 09/07/2024 13:46 EDT Electronically signed by Fanny PALOMINO Kathryn Charmaine 09/07/24 14:07 EDT Syphilis testing is negative. Electronically signed by Jasmin Phan PA-C 09/09/24 07:36 EDT Normal [facility] RECURRENT VAGINITIS (HTRX)on 08-27-2024 ATOPOBIUM VAGINAE 27.692 Abnormal [facility] ATOPOBIUM VAGINAE Detected Abnormal [facility] BVAB 2,3 (BACTERIAL VAGINOSIS ASSOCIATED BACTERIA 2, 3); MOBILUNCUS SPP 0 [facility] BVAB 2,3 (BACTERIAL VAGINOSIS ASSOCIATED BACTERIA 2, 3); MOBILUNCUS SPP Not detected [facility] CHA ALBICANS, PARAPSILOSIS, TROPICALIS 0 [facility] CHA ALBICANS, PARAPSILOSIS, TROPICALIS Not detected [facility] CHA GLABRATA 0 [facility] CAH GLABRATA Not detected [facility] Healthcare CHA KRUSEI 0 [facility] Healthcare CHA KRUSEI Not detected [facility] CHLAMYDIA TRACHOMATIS 0 [facility] CHLAMYDIA TRACHOMATIS Not detected [facility] ERMB, C; MEFA 16.201 Abnormal [facility] ERMB, C; MEFA Detected Abnormal [facility] GARDNERELLA VAGINALIS 22.195 Abnormal [facility] GARDNERELLA VAGINALIS Detected Abnormal [facility] Interpretation and review of laboratory results Abnormal [facility] MEGASPHAERA (TYPES 1, 2) 0 [facility] MEGASPHAERA (TYPES 1, 2) Not detected [facility] MYCOPLASMA GENITALIUM 0 [facility] MYCOPLASMA GENITALIUM Not detected [facility] NEISSERIA GONORRHOEAE 0 [facility] NEISSERIA GONORRHOEAE Not detected [facility] TET B, TET M 16.388 Abnormal [facility] TET B, TET M Detected Abnormal [facility] TRICHOMONAS VAGINALIS 0 [facility] TRICHOMONAS VAGINALIS Not detected [facility] echo transthoracicon [facility] echo transthoracic [place] [address] Echocardiogram Signed Patient: Quentin Bird MR#: [id number] : 2000 Acct:[id number] Age/Sex: 23 / F ADM Date: 05/18/24 Loc: Room: Type: [facility] Attending Dr: Nory Aguilar CHEMISTRY SPECIALIST-C Ordering Provider: Nory Aguilar CNP Date of Service: 05/18/24/ ECH/[facility] echo transthoracic: tachycardia, abnormal EKG Copies to: MD Nory Ordonez TELEPHONE STATION REPAIRER Patient Location: : 2000 Gender: Female (MM/DD/YYYY) Age: 23 Years Ordering Physician: Nory Aguilar Height: 59.84 in Weight: 157.066 lb Performed [...] mean P.5 mmHg MV dec slope: 611.4 cm/sec?? Ao V2 mean: 103.1 cm/sec E/E' lat: [...] V1 VTI: 26.9 cm + + + ------+ + : Electronically : : : : signed by: Hannah : : : : Mohini : : : : on: 05/18/2024, : : 10:27 PM : Transcribed By: HEATHER Performed At: 05/18/24 8037 Signed By: Hannah Rajan MD 05/18/24 4968 Normal [facility] Alanine aminotransferase [En zymatic activity/volume] in Serum or PlasmaOrdered By: Nory Aguilar on 04-20-2024 ALT [Catalytic activity/Vol] Alanine aminotransferase [Enzymatic activity/volume] in Serum or Plasma 7-[address] [facility] Albumin [Mass/volume] in Ser um or Plasma by Bromocresol green (BCG) dye binding methoOrdered By: Nory Aguilar on 04-20-2024 Albumin BCG dye [Mass/Vol] Albumin [Mass/volume] in Serum or Plasma by Bromocresol green (BCG) dye binding metho 3.5-5.[address] [facility] Alkaline phosphatase [Enzyma tic activity/volume] in Serum or PlasmaOrdered By: Nory Aguilar on 04-20-2024 ALP [Catalytic activity/Vol] Alkaline phosphatase [Enzymatic activity/volume] in Serum or Plasma 34-[address] [facility] Aspartate aminotransferase [ Enzymatic activity/volume] in Serum or PlasmaOrdered By: Nory Aguilar on 04-20-2024 AST [Catalytic activity/Vol] Aspartate aminotransferase [Enzymatic activity/volume] in Serum or Plasma 13-[address] [facility] Basophils Auto (Bld) [#/Vol] Ordered By: Nory Aguilar on 04-20-2024 Basophils (Bld) [#/Vol] Automated basoph il count 0.0-0.[address] [facility] Basophils/100 WBC Auto (Bld) Ordered By: Nory Aguilar on 04-20-2024 Basophils/100 WBC (Bld) Automated basophil % . [facility] Bilirubin.total [Mass/volume ] in Serum or PlasmaOrdered By: Nory Aguilar on 04-20-2024 Bilirubin [Mass/Vol] Bilirubin.total [Mass/volume] in Serum or Plasma 0.3-1.[address] [facility] CBC W Auto Differential pane l (Bld)on 04-20-2024 Basophils (Bld) [#/Vol] 0 10*3/uL 0.0 - 0.2 10*3/uL [facility] Basophils/100 WBC Manual cnt (Syn fld) 0.2 % . [facility] Eosinophils (Bld) [#/Vol] 0.2 10*3/uL 0.0 - 0.45 10*3/uL [facility] Eosinophils/100 WBC Manual cnt (Syn fld) 2 % . [facility] Erythrocyte distribution width (RBC) [Ratio] 13.1 % 11.9 - 15.3 % [facility] Hematocrit (Bld) [Volume fraction] 40.7 % 34.0 - 46.4 % [facility] Hemoglobin (Bld) [Mass/Vol] 14 g/dL 11.8 - 15.4 g/dL [facility] Lymphocytes (Bld) [#/Vol] 1.5 10*3/uL 1.00 - 4.8 10*3/uL [facility] Lymphocytes/100 WBC Manual cnt (Syn fld) 18.3 % . [facility] MCH (RBC) [Entitic mass] 32.2 pg 24.7 - 34.3 pg [facility] MCHC (RBC) [Mass/Vol] 34.5 g/dL 32.0 - 35.0 g/dL [facility] MCV (RBC) [Entitic vol] 93.2 fL 80 - 100 fL [facility] Monocytes (Bld) [#/Vol] 0.6 10*3/uL 0.0 - 0.8 10*3/uL [facility] Monocytes+Macrophages/1 00 WBC Manual cnt (Syn fld) 7.7 % . [facility] Neutrophils (Bld) [#/Vol] 5.8 10*3/uL 1.8 - 7.7 10*3/uL [facility] Neutrophils/100 WBC Manual cnt (Syn fld) 71.8 % . [facility] NRBC 0 /100{WBC} 0 - 0.5 /100{WBC} [facility] Platelet mean volume (Bld) [Entitic vol] 7.9 fL 6.3 - 10.7 fL [facility] Platelets (Bld) [#/Vol] 311 10*3/uL 150 - 450 10*3/uL [facility] RBC LM.HPF (Urine sed) [#/Area] 4.36 10*6/uL 3.60 - 5.00 10*6/uL [facility] WBC (Bld) [#/Vol] 8.1 10*3/uL 3.8 - 11.6 10*3/uL [facility] WBC LM.HPF (Urine sed) [#/Area] 8.1 10*3/uL 3.8 - 11.6 10*3/uL [facility] Calcium [Mass/volume] in Ser um or PlasmaOrdered By: Nory Aguilar on 04-20-2024 Calcium [Mass/Vol] Calcium [Mass/volume ] in Serum or Plasma 8.6-10.[address] [facility] Carbon dioxide, total [Moles /volume] in Serum or PlasmaOrdered By: Nory Aguilar on 04-20-2024 CO2 [Moles/Vol] Carbon dioxide, tota l [Moles/volume] in Serum or Plasma 21.0-31.[address] [facility] Chloride [Moles/volume] in S benedicto or PlasmaOrdered By: Nory Aguilar on 04-20-2024 Chloride [Moles/Vol] Chloride [Moles/volume] in Serum or Plasma 98-[address] [facility] Cholesterol [Mass/volume] in Serum or PlasmaOrdered By: Nory Aguilar on 04-20-2024 Cholesterol [Mass/Vol] Cholesterol [Mass/volume] in Serum or Plasma 140-[address] [facility] Comment on above: Chol less than 200 m g/dl low riskChol 201-239 mg/dl borderline riskChol 240 mg/dl and greater high risk Cholesterol in HDL [Mass/vol ume] in Serum or PlasmaOrdered By: Nory Aguilar on 04-20-2024 Cholesterol in HDL [Mass/Vol] Serum or plasma high density lipoprotein (HDL) cholesterol measurement 23-[address] [facility] Comment on above: HDL CHOL ATP-III CLA SSIFICATION Cardiovascular RiskHDL > or equal to 60 mg/dL LOWHDL < 40 mg/dL HIGH Cholesterol in LDL Calc [Mas s/Vol]Ordered By: Nory Aguilar on 04-20-2024 Cholesterol in LDL [Mass/Vol] Cholesterol in LDL [Mass/volume] in Serum or Plasma by calculation 0-[address] [facility] Comment on above: LDL ATP III CLASSIFI CATIONLDL less than 100 mg/dL OptimalLDL 100-129 mg/dL Near or above optimalLDL 130-159 mg/dL Borderline highLDL 160-189 mg/dL HighLDL greater than 189 mg/dL Very high Cholesterol in VLDL Calc [Ma ss/Vol]Ordered By: Nory Aguilar on 04-20-2024 Cholesterol in VLDL [Mass/Vol] Cholesterol in VLDL [Mass/volume] in Serum or Plasma by calculation [facility] Complete Blood Count Auto Di ffon 04-20-2024 Basophils (Bld) [#/Vol] 0.0 10*3/uL Normal 0.0-0.2 [facility] Comment on above: Result Comment: PERF ORMED BY: [place] [address] PATHOLOGIST BUTTON TACKER KIRBY BARRIENTOS M.D. Performed By: #### C MP, CBC, PRL #### [facility] [address] [place] [address] [place] Basophils/100 WBC (Bld) 0.2 % Normal . T shilpa [facility] Comment on above: Performed By: #### C MP, CBC, PRL #### [facility] [address] [place] [address] [place] Eosinophils (Bld) [#/Vol] 0.2 10*3/uL Normal 0.0-0.45 [facility] Comment on above: Performed By: #### C MP, CBC, PRL #### [place] [address] [place] Eosinophils/100 WBC (Bld) 2.0 % Normal . [facility] Comment on above: Performed By: #### C MP, CBC, PRL #### [place] [address] [place] Erythrocyte distribution width (RBC) [Ratio] 13.1 % Normal 11.9-15.3 [facility] Comment on above: Performed By: #### C MP, CBC, PRL #### [place] [address] [place] Hematocrit (Bld) [Volume fraction] 40.7 % Normal 34.0-46.4 [facility] Comment on above: Performed By: #### C MP, CBC, PRL #### [facility] [address] [place] [address] [place] Hemoglobin (Bld) [Mass/Vol] 14.0 g/dL Normal 11.8-15.4 [facility] Comment on above: Performed By: #### C MP, CBC, PRL #### [address] Lymphocytes (Bld) [#/Vol] 1.5 10*3/uL Normal 1.00-4.8 [facility] Comment on above: Performed By: #### C MP, CBC, PRL #### [address] Lymphocytes/100 WBC (Bld) 18.3 % Normal . [facility] Comment on above: Performed By: #### C MP, CBC, PRL #### [address] MCH (RBC) [Entitic mass] 32.2 pg Normal 24.7-34.3 [facility] Comment on above: Performed By: #### C MP, CBC, PRL #### [address] MCV (RBC) [Entitic vol] 93.2 fL Normal 80-100 [facility] Comment on above: Performed By: #### C MP, CBC, PRL #### [address] Mean Corpuscular HGB Conc 34.5 g/dL Normal 32.0-35.0 [facility] Comment on above: Performed By: #### C MP, CBC, PRL #### [address] Monocytes (Bld) [#/Vol] 0.6 10*3/uL Normal 0.0-0.8 [facility] Comment on above: Performed By: #### C MP, CBC, PRL #### [place] [address] [place] Monocytes/100 WBC (Bld) 7.7 % Normal . [facility] Comment on above: Performed By: #### C MP, CBC, PRL #### [address] Neutrophils (Bld) [#/Vol] 5.8 10*3/uL Normal 1.8-7.7 [facility] Comment on above: Performed By: #### C MP, CBC, PRL #### [address] Neutrophils/100 WBC (Bld) 71.8 % Normal . [facility] Comment on above: Performed By: #### C MP, CBC, PRL #### [address] NRBC% 0.0 /100{WBC} Normal 0-0.5 [facility] Comment on above: Performed By: #### C MP, CBC, PRL #### [address] Platelet mean volume (Bld) [Entitic vol] 7.9 fL Normal 6.3-10.7 [facility] Comment on above: Performed By: #### C MP, CBC, PRL #### [address] Platelets (Bld) [#/Vol] 311 10*3/uL Normal 150-450 [facility] Comment on above: Performed By: #### C MP, CBC, PRL #### [place] [address] [place] RBC (Bld) [#/Vol] 4.36 10*6/uL Normal 3.60-5.00 [facility] Comment on above: Performed By: #### C MP, CBC, PRL #### [address] WBC (Bld) [#/Vol] 8.1 10*3/uL Normal 3.8-11.6 [facility] Comment on above: Performed By: #### C MP, CBC, PRL #### [address] Comprehensive Metabolic Pane bridger 04-20-2024 Albumin [Mass/Vol] 4.9 g/dL Normal 3.5-5.7 [facility] Comment on above: Performed By: #### C MP, CBC, PRL #### [address] Albumin/Globulin [Mass ratio] 2.0 {ratio} Normal [facility] Comment on above: Performed By: #### C MP, CBC, PRL #### [facility] [address] ALP [Catalytic activity/Vol] 95 U/L Normal 34-104 [facility] Comment on above: Performed By: #### C MP, CBC, PRL #### [facility] [address] ALT [Catalytic activity/Vol] 9 U/L Normal 7-52 [facility] Comment on above: Performed By: #### C MP, CBC, PRL #### [facility] [address] Anion gap [Moles/Vol] 12.5 mmol/L Normal 6.0-15.0 [facility] Comment on above: Performed By: #### C MP, CBC, PRL #### [address] AST [Catalytic activity/Vol] 16 U/L Normal 13-39 [facility] Comment on above: Performed By: #### C MP, CBC, PRL #### [place] [address] [place] Bilirubin [Mass/Vol] 0.4 mg/dL Normal 0.3-1.0 [facility] Comment on above: Performed By: #### C MP, CBC, PRL #### [place] [address] [place] Calcium [Mass/Vol] 9.7 mg/dL Normal 8.6-10.3 [facility] Comment on above: Performed By: #### C MP, CBC, PRL #### [facility] [address] [place] [address] [place] Chloride [Moles/Vol] 107 mmol/L Normal 98-107 [facility] Comment on above: Performed By: #### C MP, CBC, PRL #### [address] CO2 [Moles/Vol] 22.8 mmol/L Normal 21.0-31.0 [facility] Comment on above: Performed By: #### C MP, CBC, PRL #### [facility] [address] Creatinine [Mass/Vol] 0.90 mg/dL Normal 0.60-1.20 [facility] Comment on above: Performed By: #### C MP, CBC, PRL #### [place] [address] [place] GFR/1.73 sq M.predicted MDRD (S/P/Bld) [Vol rate/Area] mL/min/{1.73_m2} Normal [facility] Comment on above: Performed By: #### C MP, CBC, PRL #### [address] Globulin (S) [Mass/Vol] 2.5 g/dL Normal T he [facility] Comment on above: Performed By: #### C MP, CBC, PRL #### [address] Glucose [Mass/Vol] 88 mg/dL Normal 70-100 [facility] [facility]ician Group Comment on above: Result Comment: [facility] Glucose Reference Range is dependent on time and content of last meal. Glucose of more than 200 mg/dL in a nonstressed, ambulatory subject supports the diagnosis of Diabetes Mellitus. ADA recommended reference range Performed By: #### C MP, CBC, PRL #### [address] Potassium [Moles/Vol] 4.3 mmol/L Normal 3.5-5.1 [facility] Comment on above: Performed By: #### C MP, CBC, PRL #### [place] [address] [place] Protein [Mass/Vol] 7.4 g/dL Normal 6.4-8.9 [facility] Comment on above: Performed By: #### C MP, CBC, PRL #### [address] Sodium [Moles/Vol] 138 mmol/L Normal 136-145 [facility] Comment on above: Performed By: #### C MP, CBC, PRL #### [facility] [address] Urea nitrogen [Mass/Vol] 7 mg/dL Normal 7-25 [facility] Comment on above: Performed By: #### C MP, CBC, PRL #### [facility] [address] Creatinine [Mass/volume] in Serum or PlasmaOrdered By: Nory Aguilar on 04-20-2024 Creatinine [Mass/Vol] Creatinine [Mass/volume] in Serum or Plasma 0.60-1.[address] [facility] ECG 12 lead ECGon 04-20-2024 ECG 12 lead ECG [facility] [place] [address] [place] [address] Electrocardiograph Report Signed Patient: Quentin Bird MR#: [id number] : 2000 Acct:[id number] Age/Sex: 23 / F ADM Date: 04/20/24 Loc: Room: Type: [facility] Attending Dr: Nory Aguilar CHEMISTRY SPECIALIST-C Ordering Provider: Nory Aguilar CNP Date of Service: 04/20/24/ ECG/ECG 12 [...] infarct Abnormal ECG Confirmed by Hannah Rajan ([id number]) on 04/20/2024 6:37:52 PM Referred By: Electronically Signed By: Hannah Rajan Transcribed By: MUS Signed By Hannah Rajan MD 5 2647 Normal [facility] Eosinophils Auto (Bld) [#/Vo l]Ordered By: Nory Aguilar on 04-20-2024 Eosinophils (Bld) [#/Vol] Automated eosinophil count 0.0-0.[address] [facility] Eosinophils/100 WBC Auto (Bl d)Ordered By: Nory Aguilar on 04-20-2024 Eosinophils/100 WBC (Bld) Automated eosinophil % . [facility] Erythrocyte distribution wid th Auto (RBC) [Ratio]Ordered By: Nory Aguilar on 04-20-2024 Erythrocyte distribution width (RBC) [Ratio] Erythrocyte distribution width [Ratio] by Automated count 11.9-15.[address] [facility] Free T4 (Free Thyroxine)on 0 04-20-2024 Free T4 [Mass/Vol] 0.75 ng/dL Normal 0.61-1.12 [facility] Comment on above: Performed By: #### C MP, CBC, PRL #### [facility] [address] [place] [address] Globulin Calc (S) [Mass/Vol] Ordered By: Nory Aguilar on 04-20-2024 Globulin (S) [Mass/Vol] Serum globulin measurement by calculation (mass/volume) [facility] Glucose [Mass/volume] in Ser um or PlasmaOrdered By: Nory Aguilar on 04-20-2024 Glucose [Mass/Vol] Glucose [Mass/volume ] in Serum or Plasma 70-[address] [facility] Comment on above: ADA recommended refe rence rangeRandom Glucose Reference Range is dependent on time and content of last meal. Glucose of more than 200 mg/dL in a nonstressed, ambulatory subject supports the diagnosis of Diabetes Mellitus. Hematocrit Auto (Bld) [Volum e fraction]Ordered By: Nory Aguilar on 04-20-2024 Hematocrit (Bld) [Volume fraction] Hematocrit [Volume Fraction] of Blood by Automated count 34.0-46.[address] [facility] Hemoglobin [Mass/volume] in BloodOrdered By: Nory Aguilar on 04-20-2024 Hemoglobin (Bld) [Mass/Vol] Hemoglobin [Mass/volume] in Blood 11.8-15.[address] [facility] Leukocytes [#/volume] correc chandan for nucleated erythrocytes in Blood by Automated counOrdered By: Nory Aguilar on 04-20-2024 WBC corrected for nucl RBC Auto (Bld) [#/Vol] Leukocytes [#/volume] corrected for nucleated erythrocytes in Blood by Automated coun 3.8-11.[address] [facility] Lipid Panelon 04-20-2024 Cholesterol [Mass/Vol] 155 mg/dL Normal 140-200 [facility] Comment on above: Result Comment: Chol less than 200 mg/dl low risk Chol 201-239 mg/dl borderline risk Chol 240 mg/dl and greater high risk Performed By: #### C MP, CBC, PRL #### [facility] [address] Cholesterol in HDL [Mass/Vol] 62 mg/dL Normal 23-92 [facility] Comment on above: Result Comment: HDL CHOL ATP-III CLASSIFICATION Cardiovascular Risk HDL > or equal to 60 mg/dL LOW HDL < 40 mg/dL HIGH Performed By: #### C MP, CBC, PRL #### [facility] [address] Cholesterol.total/Nayeli sterol in HDL [Mass ratio] 2.5 {ratio} Normal <5.0 [facility] Comment on above: Performed By: #### C MP, CBC, PRL #### [address] LDL Cholesterol,Calculated 71 mg/dL Normal 0-100 [facility] Comment on above: Result Comment: LDL ATP III CLASSIFICATION LDL less than 100 mg/dL Optimal LDL 100-129 mg/dL Near or above optimal LDL 130-159 mg/dL Borderline high LDL 160-189 mg/dL High LDL greater than 189 mg/dL Very high Performed By: #### C MP, CBC, PRL #### [place] [id number] Triglyceride w/Reflex 112 mg/dL Normal 0-149 [facility] Comment on above: Result Comment: TRIG ATP III CLASSIFICATION TRIG less than 150 mg/dL Normal TRIG 150-199 mg/dL Borderline high TRIG 200-500 mg/dL High TRIG greater than 500 mg/dL Very high Standard traceable to the Center for Disease Conrtrol and Prevention (CDC) test method. Performed By: #### C MP, CBC, PRL #### [address] VLDL CHOLESTEROL 22 mg/dL Normal [facility] Comment on above: Performed By: #### C MP, CBC, PRL #### [facility] [address] Lymphocytes Auto (Bld) [#/Vo l]Ordered By: Nory Aguilar on 04-20-2024 Lymphocytes (Bld) [#/Vol] Lymphocytes [#/volume] in Blood by Automated count 1.00-4.[address] [facility] Lymphocytes/100 WBC Auto (Bl d)Ordered By: Nory Aguilar on 04-20-2024 Lymphocytes/100 WBC (Bld) Lymphocytes/100 leukocytes in Blood by Automated count . [facility] MCH Auto (RBC) [Entitic mass ]Ordered By: Nory Aguilar on 04-20-2024 MCH (RBC) [Entitic mass] MCH [Entitic mass] by Automated count 24.7-34.[address] [facility] MCHC Auto (RBC) [Mass/Vol]Or dered By: Nory Aguilar on 04-20-2024 MCHC (RBC) [Mass/Vol] MCHC [Mass/volume] by Automated count 32.0-35.[address] [facility] MCV Auto (RBC) [Entitic vol] Ordered By: Nory Aguilar on 04-20-2024 MCV (RBC) [Entitic vol] MCV [Entitic vol ume] by Automated count 80-[address] [facility] Monocytes Auto (Bld) [#/Vol] Ordered By: Nory Aguilar on 04-20-2024 Monocytes (Bld) [#/Vol] Automated blood monocyte count 0.0-0.[address] [facility] Monocytes/100 WBC Auto (Bld) Ordered By: Nory Aguilar on 04-20-2024 Monocytes/100 WBC (Bld) Automated monocyte % . [facility] Neutrophils Auto (Bld) [#/Vo l]Ordered By: Nory Aguilar on 04-20-2024 Neutrophils (Bld) [#/Vol] Neutrophils [#/volume] in Blood by Automated count 1.8-7.[address] [facility] Neutrophils/100 WBC Auto (Bl d)Ordered By: Nory Aguilar on 04-20-2024 Neutrophils/100 WBC (Bld) Automated neutrophil % . [facility] No Panel InformationOrdered By: Nory Aguilar on 04-20-2024 Estimated GFR (CKD-EPI) > 60.0 mL/Min [facility] Creatinine Clearance (Chem N/A [facility] Nucleated erythrocytes [Pres ence] in Blood by Automated countOrdered By: Nory Aguilar on 04-20-2024 Nucleated RBC Auto Ql (Bld) Nucleated erythrocytes [Presence] in Blood by Automated count 0-0.[address] [facility] Platelet mean volume Auto (B ld) [Entitic vol]Ordered By: Nory Aguilar on 04-20-2024 Platelet mean volume (Bld) [Entitic vol] Platelet mean volume [Entitic volume] in Blood by Automated count 6.3-10.[address] [facility] Platelets Auto (Bld) [#/Vol] Ordered By: Nory Aguilar on 04-20-2024 Platelets (Bld) [#/Vol] Platelets [#/vol ume] in Blood by Automated count 150-[address] [facility] Potassium [Moles/volume] in Serum or PlasmaOrdered By: Nory Aguilar on 04-20-2024 Potassium [Moles/Vol] Potassium [Moles/volume] in Serum or Plasma 3.5-5.[address] [facility] Protein [Mass/volume] in Ser um or PlasmaOrdered By: Nory Aguilar on 04-20-2024 Protein [Mass/Vol] Protein [Mass/volume ] in Serum or Plasma 6.4-8.[address] [facility] RBC Auto (Bld) [#/Vol]Ordere d By: Nory Aguilar on 04-20-2024 RBC (Bld) [#/Vol] Erythrocytes [#/volume] in Blood by Automated count 3.60-5.[address] [facility] Serum or plasma albumin/glob ulin mass ratioOrdered By: Nory Aguilar on 04-20-2024 Albumin/Globulin [Mass ratio] Serum or plasma albumin/globulin mass ratio [facility] Serum or plasma anion gap de terminationOrdered By: Nory Aguilar on 04-20-2024 Anion gap [Moles/Vol] Serum or plasma an ion gap determination 6.0-15.[address] [facility] Serum or plasma total choles terol/high density lipoprotein (HDL) cholesterol mass ratOrdered By: Nory Aguilar on 04-20-2024 Cholesterol.total/Nayeli sterol in HDL [Mass ratio] Serum or plasma total cholesterol/high density lipoprotein (HDL) cholesterol mass rat <5.[address] [facility] Sodium [Moles/volume] in Ser um or PlasmaOrdered By: Nory Aguilar on 04-20-2024 Sodium [Moles/Vol] Sodium [Moles/volume ] in Serum or Plasma 136-[address] [facility] Thyroid Stimulating Hormoneo n 04-20-2024 TSH Qn 0.63 m[IU]/L Normal 0.45-5.33 [facility] Comment on above: Result Comment: PERF ORMED BY: [facility] [address] [facility] [place] [address] PATHOLOGIST [employer] KIRBY BARRIENTOS M.D. Performed By: #### C MP, CBC, PRL #### [address] Thyrotropin [Units/volume] i n Serum or PlasmaOrdered By: Nory Aguilar on 04-20-2024 TSH Qn Thyrotropin [Units/volume] in Serum or Plasma 0.45-5.[address] [facility] Thyroxine (T4) free [Mass/vo lume] in Serum or PlasmaOrdered By: Nory Aguilar on 04-20-2024 Free T4 [Mass/Vol] Thyroxine (T4) free [Mass/volume] in Serum or Plasma 0.61-1.[address] [facility] Triglyceride [Mass/volume] i n Serum or PlasmaOrdered By: Nory Aguilar on 04-20-2024 Triglyceride [Mass/Vol] Triglyceride [Mass/volume] in Serum or Plasma 0-[address] [facility] Comment on above: TRIG ATP III CLASSIF ICATIONTRIG less than 150 mg/dL NormalTRIG 150-199 mg/dL Borderline highTRIG 200-500 mg/dL High TRIG greater than 500 mg/dL Very highStandard traceable to the Center for Disease Conrtrol and Prevention (CDC) test method. Urea nitrogen [Mass/volume] in Serum or PlasmaOrdered By: Nory Aguilar on 04-20-2024 Urea nitrogen [Mass/Vol] Urea nitrogen [Mass/volume] in Serum or Plasma 7-[address] [facility] WBC Auto (Bld) [#/Vol]Ordere d By: Nory Aguilar on 04-20-2024 WBC (Bld) [#/Vol] Leukocytes [#/volume ] in Blood by Automated count 3.8-11.[address] [facility] Alanine aminotransferase [En zymatic activity/volume] in Serum or PlasmaOrdered By: Valdez Manrique on 03-16-2024 ALT [Catalytic activity/Vol] Alanine aminotransferase [Enzymatic activity/volume] in Serum or Plasma 7-[address] [facility] Albumin [Mass/volume] in Ser um or Plasma by Bromocresol green (BCG) dye binding methoOrdered By: Valdez Manrique on 03-16-2024 Albumin BCG dye [Mass/Vol] Albumin [Mass/volume] in Serum or Plasma by Bromocresol green (BCG) dye binding metho 3.5-5.[address] [facility] Alkaline phosphatase [Enzyma tic activity/volume] in Serum or PlasmaOrdered By: Valdez Manrique on 03-16-2024 ALP [Catalytic activity/Vol] Alkaline phosphatase [Enzymatic activity/volume] in Serum or Plasma 34-[address] [facility] Appearance of UrineOrdered B y: Valdez Manrique on 03-16-2024 Appearance (U) Urine appearance Clear [facility] Aspartate aminotransferase [ Enzymatic activity/volume] in Serum or PlasmaOrdered By: Valdez Manrique on 03-16-2024 AST [Catalytic activity/Vol] Aspartate aminotransferase [Enzymatic activity/volume] in Serum or Plasma 13-[address] [facility] Bacteria [Presence] in Urine by AutomatedOrdered By: Valdez Manrique on 03-16-2024 Bacteria Auto Ql (U) Bacteria [Presence] in Urine by Automated None Seen [facility] Basophils Auto (Bld) [#/Vol] Ordered By: Valdez Manrique on 03-16-2024 Basophils (Bld) [#/Vol] Automated basoph il count 0.0-0.[address] [facility] Basophils/100 WBC Auto (Bld) Ordered By: Valdez Manrique on 03-16-2024 Basophils/100 WBC (Bld) Automated basophil % . [facility] Bilirubin Test strip Ql (U)O rdered By: Valdez Manrique on 03-16-2024 Bilirubin Ql (U) Bilirubin.total [Presence] in Urine by Test strip Negative [facility] Bilirubin.total [Mass/volume ] in Serum or PlasmaOrdered By: Valdez Manrique on 03-16-2024 Bilirubin [Mass/Vol] Bilirubin.total [Mass/volume] in Serum or Plasma 0.3-1.[address] [facility] COVID Cepheid NegativeOrdere d By: Valdez Manrique on 03-16-2024 SARS-CoV-2 (COVID-19) Ab IA Ql COVID Cepheid Negative [facility] Comment on above: This is a duplicate Cepheid Xpert Xpress CoV-2/Flu/RSV Plus RNA by RT-PCR result to be used for statistical tracking purpose only. COVID-19 / Flu A/B / RSV PCR on 03-16-2024 SARS-CoV-2 (COVID-19) RNA LINK+probe Ql (Unsp spec) COVID-19 Cepheid Result Negative for SARS-CoV-2 RNA by RT-PCR Flu A Cepheid Result Negative for Flu A RNA by RT-PCR Flu B Cepheid Result Negative for Flu B RNA by RT-PCR RSV Cepheid Result Negative for RSV RNA by RT-PCR COVID19 Blank Space Reference: Negative COVID19 Blank Space Cepheid Disclaimer The Cepheid Xpert Xpress CoV-2/Flu/RSV Plus has Cepheid Disclaimer not been FDA cleared or approved; this test has Cepheid Disclaimer been authorized by FDA under an EUA for use by Cepheid Disclaimer authorized laboratories; this test has been Cepheid Disclaimer authorized only for the simultaneous qualitative Cepheid Disclaimer detection and differentiation of nucleic acids from Cepheid Disclaimer SARS-CoV-2, influenza A, influenza B, and Cepheid Disclaimer respiratory syncytial virus (RSV), and not for any Cepheid Disclaimer other viruses or pathogens; and this test is only Cepheid Disclaimer authorized for the duration of the declaration that Cepheid Disclaimer circumstances exist justifying the authorization of Cepheid Disclaimer emergency use of in vitro diagnostic tests for Cepheid Disclaimer detection and/or diagnosis of COVID-19 under Cepheid Disclaimer Section 564(b)(1) of the Act, 21 U.S.C. 360bbb- Cepheid Disclaimer 3(b)(1), unless the authorization is terminated or Cepheid Disclaimer revoked sooner. PERFORMED BY: [address] [id number] PATHOLOGIST [employer] KIRBY BARRIENTOS M.D. Normal [facility] Comment on above: Performed By: #### C MP, CBC, PRL #### [address] [address] [place] Calcium [Mass/volume] in Ser um or PlasmaOrdered By: Valdez Manrique on 03-16-2024 Calcium [Mass/Vol] Calcium [Mass/volume ] in Serum or Plasma 8.6-10.[address] [facility] Carbon dioxide, total [Moles /volume] in Serum or PlasmaOrdered By: Valdez Manrique on 03-16-2024 CO2 [Moles/Vol] Carbon dioxide, tota l [Moles/volume] in Serum or Plasma 21.0-31.[address] [facility] Cepheid COVID PCR Negativeon 03-16-2024 SARS-CoV-2 (COVID-19) RNA LINK+probe Ql (Unsp spec) Negative Normal Negative [facility] Comment on above: Result Comment: This is a duplicate Cepheid Xpert Xpress CoV-2/Flu/RSV Plus RNA by RT-PCR result to be used for statistical tracking purpose only. PERFORMED BY: [address] [id number] PATHOLOGIST [employer] KIRBY BARRIENTOS M.D. Performed By: #### C MP, CBC, PRL #### [address] [address] [place] Chloride [Moles/volume] in S benedicto or PlasmaOrdered By: Valdez Manrique on 03-16-2024 Chloride [Moles/Vol] Chloride [Moles/volume] in Serum or Plasma 98-[address] [facility] Color Auto (U)Ordered By: Maikel Manrique on 03-16-2024 Color (U) Color of Urine by Auto Yellow [facility] Complete Blood Count Auto Di ffon 03-16-2024 Basophils (Bld) [#/Vol] 0.0 10*3/uL Normal 0.0-0.2 [facility] Comment on above: Result Comment: PERF ORMED BY: [place] [address] PATHOLOGIST [employer] KIRBY BARRIENTOS M.D. Performed By: #### C MP, LIPASE, CBC #### [address] Basophils/100 WBC (Bld) 0.1 % Normal . T shilpa [facility] Comment on above: Performed By: #### C MP, LIPASE, CBC #### [address] Eosinophils (Bld) [#/Vol] 0.0 10*3/uL Normal 0.0-0.45 [facility] Comment on above: Performed By: #### C MP, LIPASE, CBC #### [address] Eosinophils/100 WBC (Bld) 0.0 % Normal . [facility] Comment on above: Performed By: #### C MP, LIPASE, CBC #### [address] Erythrocyte distribution width (RBC) [Ratio] 13.5 % Normal 11.9-15.3 [facility] Comment on above: Performed By: #### C MP, LIPASE, CBC #### [address] Hematocrit (Bld) [Volume fraction] 41.8 % Normal 34.0-46.4 [facility] Comment on above: Performed By: #### C MP, LIPASE, CBC #### [address] Hemoglobin (Bld) [Mass/Vol] 14.4 g/dL Normal 11.8-15.4 [facility] Comment on above: Performed By: #### C MP, LIPASE, CBC #### [address] Lymphocytes (Bld) [#/Vol] 0.2 10*3/uL Low 1.00-4.8 [facility] Comment on above: Performed By: #### C MP, LIPASE, CBC #### [address] Lymphocytes/100 WBC (Bld) 1.1 % Normal . [facility] Comment on above: Performed By: #### C MP, LIPASE, CBC #### [address] MCH (RBC) [Entitic mass] 32.1 pg Normal 24.7-34.3 [facility] Comment on above: Performed By: #### C MP, LIPASE, CBC #### [address] MCV (RBC) [Entitic vol] 92.9 fL Normal 80-100 [facility] Comment on above: Performed By: #### C MP, LIPASE, CBC #### [address] Mean Corpuscular HGB Conc 34.5 g/dL Normal 32.0-35.0 [facility] Comment on above: Performed By: #### C MP, LIPASE, CBC #### [address] Monocytes (Bld) [#/Vol] 0.6 10*3/uL Normal 0.0-0.8 [facility] Comment on above: Performed By: #### C MP, LIPASE, CBC #### [address] Monocytes/100 WBC (Bld) 21.34 % High 0.00-20.00 [facility] Comment on above: Result Comment: For adults in ED, MDW > 20.0 may be associated with a higher risk of sepsis during the first 12 hrs of hospital admission Performed By: #### C MP, LIPASE, CBC #### [address] Monocytes/100 WBC (Bld) 3.4 % Normal . T shilpa [facility] Comment on above: Performed By: #### C MP, LIPASE, CBC #### [address] Neutrophils (Bld) [#/Vol] 15.6 10*3/uL High 1.8-7.7 [facility] Comment on above: Performed By: #### C MP, LIPASE, CBC #### [address] Neutrophils/100 WBC (Bld) 95.4 % Normal . [facility] Comment on above: Performed By: #### C MP, LIPASE, CBC #### [address] NRBC% 0.0 /100{WBC} Normal 0-0.5 [facility] Comment on above: Performed By: #### C MP, LIPASE, CBC #### [address] Platelet mean volume (Bld) [Entitic vol] 8.3 fL Normal 6.3-10.7 [facility] Comment on above: Performed By: #### C MP, LIPASE, CBC #### [address] Platelets (Bld) [#/Vol] 265 10*3/uL Normal 150-450 [facility] Comment on above: Performed By: #### C MP, LIPASE, CBC #### [address] RBC (Bld) [#/Vol] 4.50 10*6/uL Normal 3.60-5.00 [facility] Comment on above: Performed By: #### C MP, LIPASE, CBC #### [address] WBC (Bld) [#/Vol] 16.3 10*3/uL High 3.8-11.6 [facility] Comment on above: Performed By: #### C MP, LIPASE, CBC #### [address] Comprehensive Metabolic Pane bridger 03-16-2024 Albumin [Mass/Vol] 5.0 g/dL Normal 3.5-5.7 [facility] Comment on above: Performed By: #### C MP, LIPASE, CBC #### [address] Albumin/Globulin [Mass ratio] 1.8 {ratio} Normal [facility] Comment on above: Performed By: #### C MP, LIPASE, CBC #### [address] ALP [Catalytic activity/Vol] 76 U/L Normal 34-104 [facility] Comment on above: Performed By: #### C MP, LIPASE, CBC #### [address] ALT [Catalytic activity/Vol] 12 U/L Normal 7-52 [facility] Comment on above: Performed By: #### C MP, LIPASE, CBC #### [address] Anion gap [Moles/Vol] 11.5 mmol/L Normal 6.0-15.0 e [facility] Comment on above: Performed By: #### C MP, LIPASE, CBC #### [address] AST [Catalytic activity/Vol] 17 U/L Normal 13-39 [facility] Comment on above: Performed By: #### C MP, LIPASE, CBC #### [address] Bilirubin [Mass/Vol] 0.5 mg/dL Normal 0.3-1.0 [facility] Comment on above: Performed By: #### C MP, LIPASE, CBC #### [address] Calcium [Mass/Vol] 9.1 mg/dL Normal 8.6-10.3 [facility] Comment on above: Performed By: #### C MP, LIPASE, CBC #### [address] Chloride [Moles/Vol] 107 mmol/L Normal 98-107 [facility] Comment on above: Performed By: #### C MP, LIPASE, CBC #### [address] CO2 [Moles/Vol] 21.1 mmol/L Normal 21.0-31.0 [facility] Comment on above: Performed By: #### C MP, LIPASE, CBC #### [address] Creatinine [Mass/Vol] 0.93 mg/dL Normal 0.60-1.20 [facility] Comment on above: Performed By: #### C MP, LIPASE, CBC #### [place] [address] [place] Creatinine Clr Calc Pharmacy 84.29 Normal [facility] Comment on above: Performed By: #### C MP, LIPASE, CBC #### [place] [address] [place] GFR/1.73 sq M.predicted MDRD (S/P/Bld) [Vol rate/Area] mL/min/{1.73_m2} Normal [facility] Comment on above: Performed By: #### C MP, LIPASE, CBC #### [address] Globulin (S) [Mass/Vol] 2.8 g/dL Normal T he [facility] Comment on above: Performed By: #### C MP, LIPASE, CBC #### [address] Glucose [Mass/Vol] 122 mg/dL High 70-100 [facility] Comment on above: Result Comment: [place] Glucose Reference Range is dependent on time and content of last meal. Glucose of more than 200 mg/dL in a nonstressed, ambulatory subject supports the diagnosis of Diabetes Mellitus. ADA recommended reference range Performed By: #### C MP, LIPASE, CBC #### [facility] [address] Potassium [Moles/Vol] 3.6 mmol/L Normal 3.5-5.1 [facility] Comment on above: Performed By: #### C MP, LIPASE, CBC #### [address] Protein [Mass/Vol] 7.8 g/dL Normal 6.4-8.9 [facility] Comment on above: Performed By: #### C MP, LIPASE, CBC #### [address] Sodium [Moles/Vol] 136 mmol/L Normal 136-145 [facility] Comment on above: Performed By: #### C MP, LIPASE, CBC #### [address] Urea nitrogen [Mass/Vol] 15 mg/dL Normal 7-25 [facility] Comment on above: Performed By: #### C MP, LIPASE, CBC #### [place] [address] [place] Creatinine [Mass/volume] in Serum or PlasmaOrdered By: Valdez Manrique on 03-16-2024 Creatinine [Mass/Vol] Creatinine [Mass/volume] in Serum or Plasma 0.60-1.[address] [facility] Dipstick and Microscopicon 0 03-16-2024 Appearance (U) Clear Normal Clear [facility] Comment on above: Order Comment: Name Collection Type:: Clean-Voided Midstream Performed By: #### C MP, CBC, PRL #### [place] [address] [place] Bacteria,Urine Rare Normal None Seen [facility] Comment on above: Order Comment: Name Collection Type:: Clean-Voided Midstream Performed By: #### C MP, CBC, PRL #### [place] [address] [place] Bilirubin,Urine Negative Normal Negative [facility] Comment on above: Order Comment: Name Collection Type:: Clean-Voided Midstream Performed By: #### C MP, CBC, PRL #### [address] Color (U) Yellow Normal Yellow [facility] Comment on above: Order Comment: Name Collection Type:: Clean-Voided Midstream Performed By: #### C MP, CBC, PRL #### [address] Glucose Ql (U) Normal Normal Normal [facility] Comment on above: Order Comment: Name Collection Type:: Clean-Voided Midstream Performed By: #### C MP, CBC, PRL #### [place] [address] [place] Hyaline Casts,Urine None Normal 0-8 [facility] Comment on above: Order Comment: Name Collection Type:: Clean-Voided Midstream Performed By: #### C MP, CBC, PRL #### [place] [address] [place] Ketones Ql (U) 2+ High Negative [facility] Comment on above: Order Comment: Name Collection Type:: Clean-Voided Midstream Performed By: #### C MP, CBC, PRL #### [address] Leukocyte esterase Test strip Ql (U) 1+ High Negative [facility] Comment on above: Order Comment: Name Collection Type:: Clean-Voided Midstream Performed By: #### C MP, CBC, PRL #### [place] [address] [place] Mucus,Urine 1+ Critically abnormal [facility] Comment on above: Order Comment: Name Collection Type:: Clean-Voided Midstream Performed By: #### C MP, CBC, PRL #### [place] [address] [place] Nitrite,Urine Negative Normal Negative [facility] Comment on above: Order Comment: Name Collection Type:: Clean-Voided Midstream Performed By: #### C MP, CBC, PRL #### [address] Occult Blood,Urine Negative Normal Negative [facility] Comment on above: Order Comment: Name Collection Type:: Clean-Voided Midstream Performed By: #### C MP, CBC, PRL #### [address] pH (U) 6.0 [pH] Normal 5.0-9.0 [facility] Comment on above: Order Comment: Name Collection Type:: Clean-Voided Midstream Performed By: #### C MP, CBC, PRL #### [address] Protein (U) [Mass/Vol] 20 mg/dL High Negative [facility] Comment on above: Order Comment: Name Collection Type:: Clean-Voided Midstream Performed By: #### C MP, CBC, PRL #### [address] RBC,Urine 1 [HPF] Normal 0-4 [facility] Comment on above: Order Comment: Name Collection Type:: Clean-Voided Midstream Performed By: #### C MP, CBC, PRL #### [address] Specificy [place],Urine 1.030 Normal 1.001-1.030 [facility] Comment on above: Order Comment: Name Collection Type:: Clean-Voided Midstream Performed By: #### C MP, CBC, PRL #### [address] Squamous Epithelial Cell,Urine 10 [HPF] High 0-2 [facility] Comment on above: Order Comment: Name Collection Type:: Clean-Voided Midstream Performed By: #### C MP, CBC, PRL #### [address] Urobilinogen,Urine Normal Normal Normal [facility] Comment on above: Order Comment: Name Collection Type:: Clean-Voided Midstream Performed By: #### C MP, CBC, PRL #### [address] [address] [facility] WBC,Urine 1 [HPF] Normal 0-4 [facility] Comment on above: Order Comment: Name Collection Type:: Clean-Voided Midstream Performed By: #### C MP, CBC, PRL #### [facility] [address] [place] [id number] [facility] Eosinophils Auto (Bld) [#/Vo l]Ordered By: Valdez Mnarique on 03-16-2024 Eosinophils (Bld) [#/Vol] Automated eosinophil count 0.0-0.[address] [facility] Eosinophils/100 WBC Auto (Bl d)Ordered By: Valdez Manrique on 03-16-2024 Eosinophils/100 WBC (Bld) Automated eosinophil % . [facility] Epithelial cells.squamous [# /area] in Urine sediment by Automated countOrdered By: Valdez Manrique on 03-16-2024 Epithelial cells.squamous Auto (Urine sed) [#/Area] Epithelial cells.squamous [#/area] in Urine sediment by Automated count High 0-[address] [facility] Erythrocyte distribution wid th Auto (RBC) [Ratio]Ordered By: Valdez Manrique on 03-16-2024 Erythrocyte distribution width (RBC) [Ratio] Erythrocyte distribution width [Ratio] by Automated count 11.9-15.[address] [facility] Erythrocytes [#/area] in Uri ne sediment by Automated countOrdered By: Valdez Manrique on 03-16-2024 RBC Auto (Urine sed) [#/Area] Erythrocytes [#/area] in Urine sediment by Automated count 0-[address] [facility] Globulin Calc (S) [Mass/Vol] Ordered By: Valdez Manrique on 03-16-2024 Globulin (S) [Mass/Vol] Serum globulin measurement by calculation (mass/volume) [facility] Glucose [Mass/volume] in Ser um or PlasmaOrdered By: Valdez Manrique on 03-16-2024 Glucose [Mass/Vol] Glucose [Mass/volume ] in Serum or Plasma High 70-[address] [facility] Comment on above: ADA recommended refe rence rangeRandom Glucose Reference Range is dependent on time and content of last meal. Glucose of more than 200 mg/dL in a nonstressed, ambulatory subject supports the diagnosis of Diabetes Mellitus. Glucose [Mass/volume] in Uri ne by Test stripOrdered By: Valdez Manrique on 03-16-2024 Glucose Test strip (U) [Mass/Vol] Glucose [Mass/volume] in Urine by Test strip Normal [facility] HCG ( test) IA.rapi d Ql (U)Ordered By: ITZEL MORAN on 03-16-2024 HCG ( test) Ql (U) Urine human chorionic gonadotropin (hCG) detection by immunoassay [facility] HCG,Urineon 03-16-2024 Beta HCG ( test) Ql (U) Negative Normal [facility] Comment on above: Order Comment: Name Collection Type:: Clean-Voided Midstream Result Comment: PERF ORMED BY: [place] [address] PATHOLOGIST [employer] KIRBY BARRIENTOS M.D. Performed By: #### C MP, CBC, PRL #### [address] Hematocrit Auto (Bld) [Volum e fraction]Ordered By: Valdez Manrique on 03-16-2024 Hematocrit (Bld) [Volume fraction] Hematocrit [Volume Fraction] of Blood by Automated count 34.0-46.[address] [facility] Hemoglobin Test strip Ql (U) Ordered By: Valdez Manrique on 03-16-2024 Hemoglobin Ql (U) Hemoglobin [Presence ] in Urine by Test strip Negative [facility] Hemoglobin [Mass/volume] in BloodOrdered By: Valdez Manrique on 03-16-2024 Hemoglobin (Bld) [Mass/Vol] Hemoglobin [Mass/volume] in Blood 11.8-15.[address] [facility] Hyaline casts [#/area] in Ur ine sediment by Automated countOrdered By: Valdez Manrique on 03-16-2024 Hyaline casts Auto (Urine sed) [#/Area] Hyaline casts [#/area] in Urine sediment by Automated count 0-[address] [facility] Ketones Test strip Ql (U)Ord ered By: Valdez Manrique on 03-16-2024 Ketones Ql (U) Ketones [Presence] i n Urine by Test strip High Negative [facility] Leukocyte esterase [Presence ] in Urine by Test stripOrdered By: Valdez Manrique on 03-16-2024 Leukocyte esterase Test strip Ql (U) Leukocyte esterase [Presence] in Urine by Test strip High Negative [facility] Leukocytes [#/area] in Urine sediment by Automated countOrdered By: Valdez Manrique on 03-16-2024 WBC Auto (Urine sed) [#/Area] Leukocytes [#/area] in Urine sediment by Automated count 0-[address] [facility] Leukocytes [#/volume] correc chandan for nucleated erythrocytes in Blood by Automated counOrdered By: Valdez Manrique on 03-16-2024 WBC corrected for nucl RBC Auto (Bld) [#/Vol] Leukocytes [#/volume] corrected for nucleated erythrocytes in Blood by Automated coun High 3.8-11.[address] [facility] Lipaseon 03-16-2024 Lipase [Catalytic activity/Vol] 20.0 U/L Normal 11.0-82.0 [facility] Comment on above: Result Comment: PERF ORMED BY: [place] [address] PATHOLOGIST [employer] KIRBY BARRIENTOS M.D. Performed By: #### C MP, CBC, PRL #### [facility] [address] [place] [address] Lipase [Enzymatic activity/v olume] in Serum or PlasmaOrdered By: Valdez Manrique on 03-16-2024 Lipase [Catalytic activity/Vol] Lipase [Enzymatic activity/volume] in Serum or Plasma 11.0-82.[address] [facility] Lymphocytes Auto (Bld) [#/Vo l]Ordered By: Valdez Manrique on 03-16-2024 Lymphocytes (Bld) [#/Vol] Lymphocytes [#/volume] in Blood by Automated count Low 1.00-4.[address] [facility] Lymphocytes/100 WBC Auto (Bl d)Ordered By: Valdez Manrique on 03-16-2024 Lymphocytes/100 WBC (Bld) Lymphocytes/100 leukocytes in Blood by Automated count . [facility] MCH Auto (RBC) [Entitic mass ]Ordered By: Valdez Manrique on 03-16-2024 MCH (RBC) [Entitic mass] MCH [Entitic mass] by Automated count 24.7-34.[address] [facility] MCHC Auto (RBC) [Mass/Vol]Or dered By: Valdez Manrique on 03-16-2024 MCHC (RBC) [Mass/Vol] MCHC [Mass/volume] by Automated count 32.0-35.[address] [facility] MCV Auto (RBC) [Entitic vol] Ordered By: Valdez Manrique on 03-16-2024 MCV (RBC) [Entitic vol] MCV [Entitic vol ume] by Automated count 80-[address] [facility] Monocyte distribution width [Entitic volume] in Blood by AutomatedOrdered By: Valdez Manrique on 03-16-2024 Monocyte distribution width Auto (Bld) [Entitic vol] Monocyte distribution width [Entitic volume] in Blood by Automated High 0.00-20.[address] [facility] Comment on above: For adults in ED, MD W > 20.0 may be associated with a higher risk of sepsis during the first 12 hrs of hospital admission Monocytes Auto (Bld) [#/Vol] Ordered By: Valdez Manrique on 03-16-2024 Monocytes (Bld) [#/Vol] Automated blood monocyte count 0.0-0.[address] [facility] Monocytes/100 WBC Auto (Bld) Ordered By: Valdez Manrique on 03-16-2024 Monocytes/100 WBC (Bld) Automated monocyte % . [facility] Mucus [Presence] in Urine by AutomatedOrdered By: Valdez Manrique on 03-16-2024 Mucus Auto Ql (U) Mucus [Presence] in Urine by Automated Abnormal [facility] Neutrophils Auto (Bld) [#/Vo l]Ordered By: Valdez Manrique on 03-16-2024 Neutrophils (Bld) [#/Vol] Neutrophils [#/volume] in Blood by Automated count High 1.8-7.[address] [facility] Neutrophils/100 WBC Auto (Bl d)Ordered By: Valdez Manrique on 03-16-2024 Neutrophils/100 WBC (Bld) Automated neutrophil % . [facility] Nitrite Test strip Ql (U)Ord ered By: Valdez Manrique on 03-16-2024 Nitrite Ql (U) Nitrite [Presence] i n Urine by Test strip Negative [facility] No Panel InformationOrdered By: Valdez Manrique on 03-16-2024 Estimated GFR (CKD-EPI) > 60.0 mL/Min [facility] Creatinine Clearance (Chem 84.[address] [facility] Nucleated erythrocytes [Pres ence] in Blood by Automated countOrdered By: Valdez Manrique on 03-16-2024 Nucleated RBC Auto Ql (Bld) Nucleated erythrocytes [Presence] in Blood by Automated count 0-0.[address] [facility] Platelet mean volume Auto (B ld) [Entitic vol]Ordered By: Valdez Manrique on 03-16-2024 Platelet mean volume (Bld) [Entitic vol] Platelet mean volume [Entitic volume] in Blood by Automated count 6.3-10.[address] [facility] Platelets Auto (Bld) [#/Vol] Ordered By: Valdez Manrique on 03-16-2024 Platelets (Bld) [#/Vol] Platelets [#/vol ume] in Blood by Automated count 150-[address] [facility] Potassium [Moles/volume] in Serum or PlasmaOrdered By: Valdez Manrique on 03-16-2024 Potassium [Moles/Vol] Potassium [Moles/volume] in Serum or Plasma 3.5-5.[address] [facility] Protein Test strip (U) [Mass /Vol]Ordered By: Valdez Manrique on 03-16-2024 Protein (U) [Mass/Vol] Protein [Mass/vol ume] in Urine by Test strip High Negative [facility] Protein [Mass/volume] in Ser um or PlasmaOrdered By: Valdez Manrique on 03-16-2024 Protein [Mass/Vol] Protein [Mass/volume ] in Serum or Plasma 6.4-8.[address] [facility] RBC Auto (Bld) [#/Vol]Ordere d By: Valdez Manrique on 03-16-2024 RBC (Bld) [#/Vol] Erythrocytes [#/volume] in Blood by Automated count 3.60-5.[address] [facility] Respiratory specimen influen za A virus, influenza B virus, respiratory syncytical virOrdered By: Valdez Manrique on 03-16-2024 SARS-CoV-2 (COVID-19) RNA LINK+probe Ql (Unsp spec) Respiratory specimen influenza A virus, influenza B virus, respiratory syncytical vir [facility] SARS-CoV-2 (COVID-19) RNA LINK+probe Ql (Unsp spec) Respiratory specimen influenza A virus, influenza B virus, respiratory syncytical vir [facility] Serum or plasma albumin/glob ulin mass ratioOrdered By: Valdez Manrique on 03-16-2024 Albumin/Globulin [Mass ratio] Serum or plasma albumin/globulin mass ratio [facility] Serum or plasma anion gap de terminationOrdered By: Valdez Manrique on 03-16-2024 Anion gap [Moles/Vol] Serum or plasma an ion gap determination 6.0-15.[address] [facility] Sodium [Moles/volume] in Ser um or PlasmaOrdered By: Valdez Manrique on 03-16-2024 Sodium [Moles/Vol] Sodium [Moles/volume ] in Serum or Plasma 136-[address] [facility] Specific gravity Test strip (U) [Rel density]Ordered By: Valdez Manrique on 03-16-2024 Specific gravity (U) [Rel density] Specific gravity of Urine by Test strip 1.001-1.[address] [facility] Urea nitrogen [Mass/volume] in Serum or PlasmaOrdered By: Valdez Manrique on 03-16-2024 Urea nitrogen [Mass/Vol] Urea nitrogen [Mass/volume] in Serum or Plasma 7-[address] [facility] Urobilinogen Test strip (U) [Mass/Vol]Ordered By: Valdez Manrique on 03-16-2024 Urobilinogen (U) [Mass/Vol] Urobilinogen [Mass/volume] in Urine by Test strip Normal [facility] WBC Auto (Bld) [#/Vol]Ordere d By: Valdez Manrique on 03-16-2024 WBC (Bld) [#/Vol] Leukocytes [#/volume ] in Blood by Automated count High 3.8-11.[address] [facility] pH Test strip (U)Ordered By: Valdez Manrique on 03-16-2024 pH (U) pH of Urine by Test strip 5.0-9.[address] [facility] Appearance of UrineOrdered B y: Jimmy Donis on 03-04-2024 Appearance (U) Urine appearance Clear [facility] Bacteria [Presence] in Urine by AutomatedOrdered By: Jimmy Donis on 03-04-2024 Bacteria Auto Ql (U) Bacteria [Presence] in Urine by Automated None Seen [facility] Basic Metabolic Panelon 02-18 Anion gap [Moles/Vol] 19.7 mmol/L High 6.0-15.0 [facility] Comment on above: Performed By: #### C MP, CBC, PRL #### [facility] [address] [place] [address] [place] Calcium [Mass/Vol] 8.9 mg/dL Normal 8.6-10.3 [facility] Comment on above: Performed By: #### C MP, CBC, PRL #### [facility] [address] [place] [address] [place] Chloride [Moles/Vol] 107 mmol/L Normal 98-107 [facility] Comment on above: Performed By: #### C MP, CBC, PRL #### [address] CO2 [Moles/Vol] 16.0 mmol/L Low 21.0-31.0 [facility] Comment on above: Performed By: #### C MP, CBC, PRL #### [place] [address] [place] Creatinine [Mass/Vol] 0.95 mg/dL Normal 0.60-1.20 [facility] Comment on above: Performed By: #### C MP, CBC, PRL #### [place] [address] [place] Creatinine Clr Calc Pharmacy 80.64 Normal [facility] Comment on above: Result Comment: PERF ORMED BY: [place] [address] PATHOLOGIST [employer] KIRBY BARRIENTOS M.D. Performed By: #### C MP, CBC, PRL #### [place] [address] [place] GFR/1.73 sq M.predicted MDRD (S/P/Bld) [Vol rate/Area] mL/min/{1.73_m2} Normal [facility] Comment on above: Performed By: #### C MP, CBC, PRL #### [address] [place] [address] [place] Glucose [Mass/Vol] 129 mg/dL High 70-100 [facility] Comment on above: Result Comment: [facility] Glucose Reference Range is dependent on time and content of last meal. Glucose of more than 200 mg/dL in a nonstressed, ambulatory subject supports the diagnosis of Diabetes Mellitus. ADA recommended reference range Performed By: #### C MP, CBC, PRL #### [facility] [address] Potassium [Moles/Vol] 3.7 mmol/L Normal 3.5-5.1 [facility] Comment on above: Performed By: #### C MP, CBC, PRL #### [address] Sodium [Moles/Vol] 139 mmol/L Normal 136-145 [facility] Comment on above: Performed By: #### C MP, CBC, PRL #### [address] Urea nitrogen [Mass/Vol] 9 mg/dL Normal 7-25 [facility] Comment on above: Performed By: #### C MP, CBC, PRL #### [place] [address] [place] Basophils Auto (Bld) [#/Vol] Ordered By: Jimmy Donis on 03-04-2024 Basophils (Bld) [#/Vol] Automated basoph il count 0.0-0.[address] [facility] Basophils/100 WBC Auto (Bld) Ordered By: Jimmy Donis on 03-04-2024 Basophils/100 WBC (Bld) Automated basophil % . [facility] Bilirubin Test strip Ql (U)O rdered By: Jimmy Donis on 03-04-2024 Bilirubin Ql (U) Bilirubin.total [Presence] in Urine by Test strip Negative [facility] CT head/brain wo conon 03-04 CT head/brain wo con [facility] [place] [address] [place] [address] CT Scan Report Signed Patient: Quentin Bird MR#: [id number] : 2000 Acct:[id number] Age/Sex: 23 / F ADM Date: 03/04/24 Loc: ER Room: Type: [facility] ER Attending Dr: Copies to: Jimmy Donis DO Ordering Provider: Jimmy Donis DO Date of Service: 03/04/24 CT/CT head/brain wo con: seizure CT BRAIN WITHOUT CONTRAST: CLINICAL HISTORY: 2 minute witnessed seizure, lower to floor, denies pain COMPARISON: None TECHNIQUE: Contiguous axial unenhanced images were obtained through the brain. This CT exam was performed using one or more following dose reduction techniques: Automated exposure control, adjustment of the mA and/or kV according to patient size, or use of iterative reconstruction technique. FINDINGS: There is no evidence of midline shift, intra or extra-axial fluid collection, hemorrhage or CT evidence of large vascular distribution stroke. Visualized intraorbital contents appear unremarkable. Visualized paranasal sinuses are clear. The surrounding soft tissues are normal. CT/CT head/brain wo con IMPRESSION: NO ACUTE INTRACRANIAL ABNORMALITY. Impression dictated by: Tomas Graham M.D.03/04/2024 10:41 AM Dictation Location: [place] [address] Transcribed By: [facility] 03/04/24 1041 Dictated By: Tomas Graham MD 03/04/24 1039 Signed By: 03/04/24 1041 Normal [facility] Calcium [Mass/volume] in Ser um or PlasmaOrdered By: Jimmy Donis on 03-04-2024 Calcium [Mass/Vol] Calcium [Mass/volume ] in Serum or Plasma 8.6-10.[address] [facility] Carbon dioxide, total [Moles /volume] in Serum or PlasmaOrdered By: Jimmy Donis on 03-04-2024 CO2 [Moles/Vol] Carbon dioxide, tota l [Moles/volume] in Serum or Plasma Low 21.0-31.[address] [facility] Chloride [Moles/volume] in S benedicto or PlasmaOrdered By: Jimmy Donis on 03-04-2024 Chloride [Moles/Vol] Chloride [Moles/volume] in Serum or Plasma 98-[address] [facility] Color Auto (U)Ordered By: Yan Donis on 03-04-2024 Color (U) Color of Urine by Auto Yellow [facility] Complete Blood Count Auto Di ffon 03-04-2024 Basophils (Bld) [#/Vol] 0.1 10*3/uL Normal 0.0-0.2 [facility] Comment on above: Result Comment: PERF ORMED BY: [place] [address] PATHOLOGIST [employer] KIRBY BARRIENTOS M.D. Performed By: #### C MP, CBC, PRL #### [facility] [address] [place] [address] Basophils/100 WBC (Bld) 0.7 % Normal . T shilpa [facility] Comment on above: Performed By: #### C MP, CBC, PRL #### [facility] [address] [place] [address] [place] Eosinophils (Bld) [#/Vol] 0.1 10*3/uL Normal 0.0-0.45 [facility] Comment on above: Performed By: #### C MP, CBC, PRL #### [address] Eosinophils/100 WBC (Bld) 1.1 % Normal . [facility] Comment on above: Performed By: #### C MP, CBC, PRL #### [address] Erythrocyte distribution width (RBC) [Ratio] 13.5 % Normal 11.9-15.3 [facility] Comment on above: Performed By: #### C MP, CBC, PRL #### [place] [address] [place] Hematocrit (Bld) [Volume fraction] 41.0 % Normal 34.0-46.4 [facility] Comment on above: Performed By: #### C MP, CBC, PRL #### [place] [address] [place] Hemoglobin (Bld) [Mass/Vol] 13.7 g/dL Normal 11.8-15.4 [facility] Comment on above: Performed By: #### C MP, CBC, PRL #### [facility] [address] [place] [address] [place] Lymphocytes (Bld) [#/Vol] 2.3 10*3/uL Normal 1.00-4.8 [facility] Comment on above: Performed By: #### C MP, CBC, PRL #### [address] Lymphocytes/100 WBC (Bld) 28.5 % Normal . [facility] Comment on above: Performed By: #### C MP, CBC, PRL #### [address] MCH (RBC) [Entitic mass] 31.6 pg Normal 24.7-34.3 [facility] Comment on above: Performed By: #### C MP, CBC, PRL #### [address] MCV (RBC) [Entitic vol] 94.5 fL Normal 80-100 [facility] Comment on above: Performed By: #### C MP, CBC, PRL #### [address] Mean Corpuscular HGB Conc 33.4 g/dL Normal 32.0-35.0 [facility] Comment on above: Performed By: #### C MP, CBC, PRL #### [address] Monocytes (Bld) [#/Vol] 0.7 10*3/uL Normal 0.0-0.8 [facility] Comment on above: Performed By: #### C MP, CBC, PRL #### [place] [address] [place] Monocytes/100 WBC (Bld) 15.77 % Normal 0.00-20.00 [facility] Comment on above: Performed By: #### C MP, CBC, PRL #### [address] Monocytes/100 WBC (Bld) 8.2 % Normal . [facility] Comment on above: Performed By: #### C MP, CBC, PRL #### [facility] [address] [place] [address] [place] Neutrophils (Bld) [#/Vol] 5.0 10*3/uL Normal 1.8-7.7 [facility] Comment on above: Performed By: #### C MP, CBC, PRL #### [facility] [address] [place] [id number] [place] Neutrophils/100 WBC (Bld) 61.5 % Normal . [facility] Comment on above: Performed By: #### C MP, CBC, PRL #### [facility] [address] [place] [address] [place] NRBC% 0.1 /100{WBC} Normal 0-0.5 [facility] Comment on above: Performed By: #### C MP, CBC, PRL #### [place] [address] [place] Platelet mean volume (Bld) [Entitic vol] 8.0 fL Normal 6.3-10.7 [facility] Comment on above: Performed By: #### C MP, CBC, PRL #### [facility] [address] [place] [address] [place] Platelets (Bld) [#/Vol] 300 10*3/uL Normal 150-450 [facility] Comment on above: Performed By: #### C MP, CBC, PRL #### [facility] [address] [place] [address] [place] RBC (Bld) [#/Vol] 4.34 10*6/uL Normal 3.60-5.00 [facility] Comment on above: Performed By: #### C MP, CBC, PRL #### [facility] [address] [place] [address] [place] WBC (Bld) [#/Vol] 8.1 10*3/uL Normal 3.8-11.6 [facility] Comment on above: Performed By: #### C MP, CBC, PRL #### [place] [address] [place] Creatinine [Mass/volume] in Serum or PlasmaOrdered By: Jimmy Donis on 03-04-2024 Creatinine [Mass/Vol] Creatinine [Mass/volume] in Serum or Plasma 0.60-1.[address] [facility] Dipstick and Microscopicon 0 03-04-2024 Appearance (U) Clear Normal Clear [facility] Comment on above: Order Comment: Name Collection Type:: Clean-Voided Midstream Performed By: #### C MP, CBC, PRL #### [facility] [address] Bacteria,Urine Rare Normal None Seen [facility] Comment on above: Order Comment: Name Collection Type:: Clean-Voided Midstream Performed By: #### C MP, CBC, PRL #### [address] Bilirubin,Urine Negative Normal Negative [facility] Comment on above: Order Comment: Name Collection Type:: Clean-Voided Midstream Performed By: #### C MP, CBC, PRL #### [place] [address] [place] Color (U) Light-Yellow Normal Yellow [facility] Comment on above: Order Comment: Name Collection Type:: Clean-Voided Midstream Performed By: #### C MP, CBC, PRL #### [address] Glucose Ql (U) Normal Normal Normal [facility] Comment on above: Order Comment: Name Collection Type:: Clean-Voided Midstream Performed By: #### C MP, CBC, PRL #### [place] [address] [place] Hyaline Casts,Urine None Normal 0-8 [facility] Comment on above: Order Comment: Name Collection Type:: Clean-Voided Midstream Performed By: #### C MP, CBC, PRL #### [place] [address] [place] Ketones Ql (U) Negative Normal Negative [facility] Comment on above: Order Comment: Name Collection Type:: Clean-Voided Midstream Performed By: #### C MP, CBC, PRL #### [address] Leukocyte esterase Test strip Ql (U) 2+ High Negative [facility] Comment on above: Order Comment: Name Collection Type:: Clean-Voided Midstream Performed By: #### C MP, CBC, PRL #### [address] Mucus,Urine Rare Normal [facility] Comment on above: Order Comment: Name Collection Type:: Clean-Voided Midstream Performed By: #### C MP, CBC, PRL #### [place] [address] [place] Nitrite,Urine Negative Normal Negative [facility] Comment on above: Order Comment: Name Collection Type:: Clean-Voided Midstream Performed By: #### C MP, CBC, PRL #### [address] Occult Blood,Urine Negative Normal Negative [facility] Comment on above: Order Comment: Name Collection Type:: Clean-Voided Midstream Performed By: #### C MP, CBC, PRL #### [address] pH (U) 6.5 [pH] Normal 5.0-9.0 [facility] Comment on above: Order Comment: Name Collection Type:: Clean-Voided Midstream Performed By: #### C MP, CBC, PRL #### [address] Protein,Urine Negative Normal Negative [facility] Comment on above: Order Comment: Name Collection Type:: Clean-Voided Midstream Performed By: #### C MP, CBC, PRL #### [place] [address] [place] RBC,Urine 1 [HPF] Normal 0-4 [facility] Comment on above: Order Comment: Name Collection Type:: Clean-Voided Midstream Performed By: #### C MP, CBC, PRL #### [place] [address] [place] Specificy [place],Urine 1.010 Normal 1.001-1.030 [facility] Comment on above: Order Comment: Name Collection Type:: Clean-Voided Midstream Performed By: #### C MP, CBC, PRL #### [address] Squamous Epithelial Cell,Urine 5 [HPF] High 0-2 [facility] Comment on above: Order Comment: Name Collection Type:: Clean-Voided Midstream Performed By: #### C MP, CBC, PRL #### [address] Urobilinogen,Urine Normal Normal Normal [facility] Comment on above: Order Comment: Name Collection Type:: Clean-Voided Midstream Performed By: #### C MP, CBC, PRL #### [address] WBC,Urine 3 [HPF] Normal 0-4 [facility] Comment on above: Order Comment: Name Collection Type:: Clean-Voided Midstream Performed By: #### C MP, CBC, PRL #### [address] ECG 12 lead ECGon 03-04-2024 ECG 12 lead ECG [facility] [place] [address] [place] [address] Electrocardiograph Report Signed Patient: Quentin Bird MR#: [id number] : 2000 Acct:[id number] Age/Sex: 23 / F ADM Date: 03/04/24 Loc: ER Room: Type: [facility] ER Attending Dr: Ordering Provider: Jimmy Donis DO Date of Service: 03/04/24 ECG/ECG 12 lead ECG: Seizure Copies to: Test Reason : Blood Pressure : 167/104 mmHG Vent. Rate : 118 BPM Atrial Rate : 118 BPM P-R Int : 144 ms QRS Dur : 82 ms QT Int : 332 ms P-R-T Axes : 51 69 60 degrees QTcB Int : 465 ms Sinus tachycardia Possible Left atrial enlargement Borderline ECG When compared with ECG of 22-Dec-2023 17:09, Questionable change in QRS axis Confirmed by Jimmy Donis DO ([id number]) on 03/04/2024 3:19:49 PM Referred By: Electronically Signed By: Jimmy Donis DO Transcribed By: HANDY Signed By Jimmy Donis DO 5 0839 Normal [facility] Eosinophils Auto (Bld) [#/Vo l]Ordered By: Jimmy Donis on 03-04-2024 Eosinophils (Bld) [#/Vol] Automated eosinophil count 0.0-0.[address] [facility] Eosinophils/100 WBC Auto (Bl d)Ordered By: Jimmy Donis on 03-04-2024 Eosinophils/100 WBC (Bld) Automated eosinophil % . [facility] Epithelial cells.squamous [# /area] in Urine sediment by Automated countOrdered By: Jimmy Donis on 03-04-2024 Epithelial cells.squamous Auto (Urine sed) [#/Area] Epithelial cells.squamous [#/area] in Urine sediment by Automated count High 0-[address] [facility] Erythrocyte distribution wid th Auto (RBC) [Ratio]Ordered By: Jimmy Donis on 03-04-2024 Erythrocyte distribution width (RBC) [Ratio] Erythrocyte distribution width [Ratio] by Automated count 11.9-15.[address] [facility] Erythrocytes [#/area] in Uri ne sediment by Automated countOrdered By: Jimmy Donis on 03-04-2024 RBC Auto (Urine sed) [#/Area] Erythrocytes [#/area] in Urine sediment by Automated count 0-[address] [facility] Glucose [Mass/volume] in Ser um or PlasmaOrdered By: Jimmy Donis on 03-04-2024 Glucose [Mass/Vol] Glucose [Mass/volume ] in Serum or Plasma High 70-[address] [facility] Comment on above: ADA recommended refe rence rangeRandom Glucose Reference Range is dependent on time and content of last meal. Glucose of more than 200 mg/dL in a nonstressed, ambulatory subject supports the diagnosis of Diabetes Mellitus. Glucose [Mass/volume] in Uri ne by Test stripOrdered By: Jimmy Donis on 03-04-2024 Glucose Test strip (U) [Mass/Vol] Glucose [Mass/volume] in Urine by Test strip Normal [facility] HCG ( test) IA.rapi d Ql (U)Ordered By: Jimmy Donis on 03-04-2024 HCG ( test) Ql (U) Urine human chorionic gonadotropin (hCG) detection by immunoassay [facility] HCG,Urineon 03-04-2024 Beta HCG ( test) Ql (U) Negative Normal [facility] Comment on above: Order Comment: Name Collection Type:: Clean-Voided Midstream Result Comment: PERF ORMED BY: [place] [address] PATHOLOGIST [employer] KIRBY BARRIENTOS M.D. Performed By: #### C MP, CBC, PRL #### [address] Hematocrit Auto (Bld) [Volum e fraction]Ordered By: Jimmy Donis on 03-04-2024 Hematocrit (Bld) [Volume fraction] Hematocrit [Volume Fraction] of Blood by Automated count 34.0-46.[address] [facility] Hemoglobin Test strip Ql (U) Ordered By: Jimmy Donis on 03-04-2024 Hemoglobin Ql (U) Hemoglobin [Presence ] in Urine by Test strip Negative [facility] Hemoglobin [Mass/volume] in BloodOrdered By: Jimmy Donis on 03-04-2024 Hemoglobin (Bld) [Mass/Vol] Hemoglobin [Mass/volume] in Blood 11.8-15.[address] [facility] Hyaline casts [#/area] in Ur ine sediment by Automated countOrdered By: Jimmy Donis on 03-04-2024 Hyaline casts Auto (Urine sed) [#/Area] Hyaline casts [#/area] in Urine sediment by Automated count 0-[address] [facility] Ketones Test strip Ql (U)Ord ered By: Jimmy Donis on 03-04-2024 Ketones Ql (U) Ketones [Presence] i n Urine by Test strip Negative [facility] Leukocyte esterase [Presence ] in Urine by Test stripOrdered By: Jimmy Donis on 03-04-2024 Leukocyte esterase Test strip Ql (U) Leukocyte esterase [Presence] in Urine by Test strip High Negative [facility] Leukocytes [#/area] in Urine sediment by Automated countOrdered By: Jimmy Donis on 03-04-2024 WBC Auto (Urine sed) [#/Area] Leukocytes [#/area] in Urine sediment by Automated count 0-[address] [facility] Leukocytes [#/volume] correc chandan for nucleated erythrocytes in Blood by Automated counOrdered By: Jimmy Donis on 03-04-2024 WBC corrected for nucl RBC Auto (Bld) [#/Vol] Leukocytes [#/volume] corrected for nucleated erythrocytes in Blood by Automated coun 3.8-11.[address] [facility] Lymphocytes Auto (Bld) [#/Vo l]Ordered By: Jimmy Donis on 03-04-2024 Lymphocytes (Bld) [#/Vol] Lymphocytes [#/volume] in Blood by Automated count 1.00-4.[address] [facility] Lymphocytes/100 WBC Auto (Bl d)Ordered By: Jimmy Donis on 03-04-2024 Lymphocytes/100 WBC (Bld) Lymphocytes/100 leukocytes in Blood by Automated count . [facility] MCH Auto (RBC) [Entitic mass ]Ordered By: Jimmy Donis on 03-04-2024 MCH (RBC) [Entitic mass] MCH [Entitic mass] by Automated count 24.7-34.[address] [facility] MCHC Auto (RBC) [Mass/Vol]Or dered By: Jimmy Donis on 03-04-2024 MCHC (RBC) [Mass/Vol] MCHC [Mass/volume] by Automated count 32.0-35.[address] [facility] MCV Auto (RBC) [Entitic vol] Ordered By: Jimmy Donis on 03-04-2024 MCV (RBC) [Entitic vol] MCV [Entitic vol ume] by Automated count 80-[address] [facility] Monocyte distribution width [Entitic volume] in Blood by AutomatedOrdered By: Jimmy Donis on 03-04-2024 Monocyte distribution width Auto (Bld) [Entitic vol] Monocyte distribution width [Entitic volume] in Blood by Automated 0.00-20.[address] [facility] Monocytes Auto (Bld) [#/Vol] Ordered By: Jimmy Donis on 03-04-2024 Monocytes (Bld) [#/Vol] Automated blood monocyte count 0.0-0.[address] [facility] Monocytes/100 WBC Auto (Bld) Ordered By: Jimmy Donis on 03-04-2024 Monocytes/100 WBC (Bld) Automated monocyte % . [facility] Mucus [Presence] in Urine by AutomatedOrdered By: Jimmy Donis on 03-04-2024 Mucus Auto Ql (U) Mucus [Presence] in Urine by Automated [facility] Neutrophils Auto (Bld) [#/Vo l]Ordered By: Jimmy Donis on 03-04-2024 Neutrophils (Bld) [#/Vol] Neutrophils [#/volume] in Blood by Automated count 1.8-7.[address] [facility] Neutrophils/100 WBC Auto (Bl d)Ordered By: Jimmy Donis on 03-04-2024 Neutrophils/100 WBC (Bld) Automated neutrophil % . [facility] Nitrite Test strip Ql (U)Ord ered By: Jimmy Donis on 03-04-2024 Nitrite Ql (U) Nitrite [Presence] i n Urine by Test strip Negative [facility] No Panel InformationOrdered By: Jimmy Donis on 03-04-2024 Estimated GFR (CKD-EPI) > 60.0 mL/Min [facility] Creatinine Clearance (Chem 80.[address] [facility] Nucleated erythrocytes [Pres ence] in Blood by Automated countOrdered By: Jimmy Donis on 03-04-2024 Nucleated RBC Auto Ql (Bld) Nucleated erythrocytes [Presence] in Blood by Automated count 0-0.[address] [facility] Platelet mean volume Auto (B ld) [Entitic vol]Ordered By: Jimmy Donis on 03-04-2024 Platelet mean volume (Bld) [Entitic vol] Platelet mean volume [Entitic volume] in Blood by Automated count 6.3-10.[address] [facility] Platelets Auto (Bld) [#/Vol] Ordered By: Jimmy Donis on 03-04-2024 Platelets (Bld) [#/Vol] Platelets [#/vol ume] in Blood by Automated count 150-[address] [facility] Potassium [Moles/volume] in Serum or PlasmaOrdered By: Jimmy Donis on 03-04-2024 Potassium [Moles/Vol] Potassium [Moles/volume] in Serum or Plasma 3.5-5.[address] [facility] Protein Test strip (U) [Mass /Vol]Ordered By: Jimmy Donis on 03-04-2024 Protein (U) [Mass/Vol] Protein [Mass/vol ume] in Urine by Test strip Negative [facility] RBC Auto (Bld) [#/Vol]Ordere d By: Jimmy Donis on 03-04-2024 RBC (Bld) [#/Vol] Erythrocytes [#/volume] in Blood by Automated count 3.60-5.[address] [facility] Serum or plasma anion gap de terminationOrdered By: Jimmy Donis on 03-04-2024 Anion gap [Moles/Vol] Serum or plasma an ion gap determination High 6.0-15.[address] [facility] Sodium [Moles/volume] in Ser um or PlasmaOrdered By: Jimmy Donis on 03-04-2024 Sodium [Moles/Vol] Sodium [Moles/volume ] in Serum or Plasma 136-[address] [facility] Specific gravity Test strip (U) [Rel density]Ordered By: Jimmy Donis on 03-04-2024 Specific gravity (U) [Rel density] Specific gravity of Urine by Test strip 1.001-1.[address] [facility] Urea nitrogen [Mass/volume] in Serum or PlasmaOrdered By: Jimmy Donis on 03-04-2024 Urea nitrogen [Mass/Vol] Urea nitrogen [Mass/volume] in Serum or Plasma 7-[address] [facility] Urobilinogen Test strip (U) [Mass/Vol]Ordered By: Jimmy Donis on 03-04-2024 Urobilinogen (U) [Mass/Vol] Urobilinogen [Mass/volume] in Urine by Test strip Normal [facility] WBC Auto (Bld) [#/Vol]Ordere d By: Jimmy Donis on 03-04-2024 WBC (Bld) [#/Vol] Leukocytes [#/volume ] in Blood by Automated count 3.8-11.[address] [facility] pH Test strip (U)Ordered By: Jimmy Donis on 03-04-2024 pH (U) pH of Urine by Test strip 5.0-9.[address] [facility] Taryn 02-18-2024 [facility]STAL[facility] Telephone (NE50MN) QUENTIN BIRD ([id number]) 4 F Date Time Provider Department 02/18/24 DAISY DE LEON NE50MN During your visit today, we recorded the following information about you: Aislinn Lee 02/18/2024 11:50 AM Signed Prior Authorization Needed: Received by: Fax Requested by (pharmacy name): [facility] Phone number: [phone] Name of medication: Lacosamide Brand or Generic: generic Strength and dosage: 50 mg Wk 1: 150/200 Wk 2: 150/150 Wk 3: 100/150 Wk 4: 100/100 Wk 5: 50/100 WK 6: 50/50 Wk 7: 50 at bedtime Wk 8: STOP LCM Quantity Override: No Insurance company name and phone #: [employer] [phone] HUNTER [id number] Patient ID: PCN #: BIN#: Group #: Patient of Asuncion Burris RN 02/18/2024 12:37 PM Signed PA done via CMM. (Hunter: [id number]) PA Rx #: [id number] Status: sent to plan today BRAYDEN Hunter Merlene 02/20/2024 9:28 AM Signed Received approval for Lacosamide 50 mg from [facility]. Approval Dates: 02/18/24 - 02/17/25. REF #: [id number] Approval uploaded to [facility]. Asuncion Garcia RN 02/20/2024 9:34 AM Signed Pharmacy called and made aware. Asuncion Garcia RN Allergies As of Date: 02/18/2024 (No Known Allergies) Date Reviewed: 01/09/2024 Reviewed by: Cathy Dixon MA - Fully Assessed Reason for Visit: Medication Authorization [1699] Cmt: Lacosamide 50 mg Prescriptions as of 02/20/2024 - folic acid 1 mg tablet Take 2 tablets by mouth once daily. - lacosamide (VIMPAT) 50 mg tab Wk 1: 150/200 Wk 2: 150/150 Wk 3: 100/150 Wk 4: 100/100 Wk 5: 50/100 WK 6: 50/50 Wk 7: 50 at bedtime Wk 8: STOP LCM - zonisamide (ZONEGRAN) 100 mg capsule Take 3 capsules by mouth daily at bedtime. - venlafaxine ER (EFFEXOR XR) 37.5 mg 24 hr capsule Take 37.5 mg by mouth once daily. - magnesium hydroxide (MAGNESIA ORAL) Take 500 mg by mouth once daily. - midazolam (NAYZILAM) 5 mg/spray (0.1 mL) nasal spray Use 1 spray in one nostril as needed for seizures lasting longer than 2 minutes. May repeat dose in alternate nostril after 10 minutes based on response and tolerability. - lamoTRIgine (LAMICTAL) 25 mg tablet Take 1 tablet by mouth two times a day. Week 1 and 2: 25 mg once per day. Week 3 and 4: 25 mg twice per day. Week 5: 25 mg AM, 50 mg PM, Week 6: 50 mg twice per day. Week 7: 50 mg AM, 75 mg PM, Week 8: 75 mg twice per day, Week 9: 75 mg AM, 100 mg PM, Week 10: 100 mg twice per day. Week 11: 100 mg AM, 125 mg PM, Week 12: 125 mg twice per day. Then continue 125 mg twice per day. - metFORMIN ER (GLUCOPHAGE XR) 500 mg 24 hr tablet Take 1,000 mg by mouth daily with breakfast. 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 Patient of Joon Marcano RN 02/13/2024 3:56 PM Signed I spoke with the pharmacist at [facility], titration schedule reviewed. Joon Melton RN Allergies As of Date: 02/13/2024 (No Known Allergies) Date Reviewed: 01/09/2024 Reviewed by: Cathy Dixon MA - Fully Assessed Reason for Visit: Medication Problem [65] Cmt: Vimpat - Pharmacy Needs Clarification Prescriptions as of 02/13/2024 - folic acid 1 mg tablet Take 2 tablets by mouth once daily. - lacosamide (VIMPAT) 50 mg tab Wk 1: 150/200 Wk 2: 150/150 Wk 3: 100/150 Wk 4: 100/100 Wk 5: 50/100 WK 6: 50/50 Wk 7: 50 at bedtime Wk 8: STOP LCM - zonisamide (ZONEGRAN) 100 mg capsule Take 3 capsules by mouth daily at bedtime. - venlafaxine ER (EFFEXOR XR) 37.5 mg 24 hr capsule Take 37.5 mg by mouth once daily. - magnesium hydroxide (MAGNESIA ORAL) Take 500 mg by mouth once daily. - midazolam (NAYZILAM) 5 mg/spray (0.1 mL) nasal spray Use 1 spray in one nostril as needed for seizures lasting longer than 2 minutes. May repeat dose in alternate nostril after 10 minutes based on response and tolerability. - lamoTRIgine (LAMICTAL) 25 mg tablet Take 1 tablet by mouth two times a day. Week 1 and 2: 25 mg once per day. Week 3 and 4: 25 mg twice per day. Week 5: 25 mg AM, 50 mg PM, Week 6: 50 mg twice per day. Week 7: 50 mg AM, 75 mg PM, Week 8: 75 mg twice per day, Week 9: 75 mg AM, 100 mg PM, Week 10: 100 mg twice per day. Week 11: 100 mg AM, 125 mg PM, Week 12: 125 mg twice per day. Then continue 125 mg twice per day. - metFORMIN ER (GLUCOPHAGE XR) 500 mg 24 hr tablet Take 1,000 mg by mouth daily with breakfast. 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 major depression in partial remission*09/28/2020 Encounter Status:Closed by JOON POST on 02/13/24 [facility] QUENTIN [facility] ([id number]) 4 F Date Time Provider Department 02/10/24 DAISY DE LEON NE50MN During your visit today, we recorded the following information about you: Nahomy Frye 02/10/2024 9:47 AM Signed Medication Concern Person Calling: Fax from [facility] Phone #: [phone] / Name of medication: Lacosamide/Vimpat - 50MG Concern with medication: Clarification request for dosage instructions Directions are missing on the original prescription dated 02/07/[address] De Leon Forwarded to nurse. Asuncion Garcia RN 02/10/2024 10:26 AM Signed Prescription for LCM 50mg tablet. [facility]'s response: Routed for new prescription. BRAYDEN Hunter Kelly, BEULAH.[facility] 02/10/2024 12:46 PM Signed The following approved medication requests have been transmitted electronically. 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 - venlafaxine ER (EFFEXOR XR) 37.5 mg 24 hr capsule Take 37.5 mg by mouth once daily. - magnesium hydroxide (MAGNESIA ORAL) Take 500 mg by mouth once daily. - midazolam (NAYZILAM) 5 mg/spray (0.1 mL) nasal spray Use 1 spray in one nostril as needed for seizures lasting longer than 2 minutes. May repeat dose in alternate nostril after 10 minutes based on response and tolerability. - lamoTRIgine (LAMICTAL) 25 mg tablet Take 1 tablet by mouth two times a day. Week 1 and 2: 25 mg once per day. Week 3 and 4: 25 mg twice per day. Week 5: 25 mg AM, 50 mg PM, Week 6: 50 mg twice per day. Week 7: 50 mg AM, 75 mg PM, Week 8: 75 mg twice per day, Week 9: 75 mg AM, 100 mg PM, Week 10: 100 mg twice per day. Week 11: 100 mg AM, 125 mg PM, Week 12: 125 mg twice per day. Then continue 125 mg twice per day. - folic acid 1 mg tablet Take 2 tablets by mouth once daily. - metFORMIN ER (GLUCOPHAGE XR) 500 mg 24 hr tablet Take 1,000 mg by mouth daily with breakfast. 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 Recurrent major depression in partial remission*09/28/2020 Prescriptions ordered this encounter Disp Refills Start End LACOSAMIDE 50 MG TABLET 168 * 0 02/10/2024 04/10/2024 Sig: Wk 1: 150/200 Wk 2: 150/150 Wk 3: 100/150 Wk 4: 100/100 Wk 5: 50/100 WK 6: 50/50 Wk 7: 50 at bedtime Wk 8: STOP LCM Medications Discontinued During This Encounter Prescriptions - lacosamide (VIMPAT) 50 mg tab (Discontinued) Please follow wean schedule provided via Shots Encounter Status:Closed by ROSELYN MCCULLOUGH on 02/10/24 [facility] Taryn 02-07-2024 [facility] Telephone (NE50MN) QUENTIN BIRD ([id number]) 4 F Date Time Provider Department 02/07/24 DAISY DE LEON NE50MN During your visit today, we recorded the following information about you: Ermelinda Dangelo 02/07/2024 10:34 AM Signed Form received: From (agency / facility / parent): [facility] agricultural equipment salesperson (if given): Phone #: [phone] Fax # : [phone] Email: Information requested: Physicians statement Patient of Dr. De Leon Forwarded to Nurse Asuncion Garcia RN 02/07/2024 11:45 AM Signed Prescription for LCM 50mg tablets is unclear. Pharmacy asking to verify instructions and provide the duration (day supply) that 168 tablets are expected to last the pt. Routed. BRAYDEN Hunter Alena, PA-C 02/07/2024 11:56 AM Signed RX corrected The following approved medication requests have been transmitted electronically. Requested Prescriptions Signed Prescriptions Disp Refills lacosamide (VIMPAT) 50 mg tab 168 tablet 0 Sig: Please follow wean schedule provided via Life800t Authorizing Provider: HOSEA KU PA-C Rhodes, Alena, PA-C 02/07/2024 4:35 PM Signed The following approved medication requests have been transmitted electronically. 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 - lacosamide (VIMPAT) 50 mg tab Please follow wean schedule provided via TapInfluencehart - venlafaxine ER (EFFEXOR XR) 37.5 mg 24 hr capsule Take 37.5 mg by mouth once daily. - magnesium hydroxide (MAGNESIA ORAL) Take 500 mg by mouth once daily. - midazolam (NAYZILAM) 5 mg/spray (0.1 mL) nasal spray Use 1 spray in one nostril as needed for seizures lasting longer than 2 minutes. May repeat dose in alternate nostril after 10 minutes based on response and tolerability. - lamoTRIgine (LAMICTAL) 25 mg tablet Take 1 tablet by mouth two times a day. Week 1 and 2: 25 mg once per day. Week 3 and 4: 25 mg twice per day. Week 5: 25 mg AM, 50 mg PM, Week 6: 50 mg twice per day. Week 7: 50 mg AM, 75 mg PM, Week 8: 75 mg twice per day, Week 9: 75 mg AM, 100 mg PM, Week 10: 100 mg twice per day. Week 11: 100 mg AM, 125 mg PM, Week 12: 125 mg twice per day. Then continue 125 mg twice per day. - folic acid 1 mg tablet Take 2 tablets by mouth once daily. - metFORMIN ER (GLUCOPHAGE XR) 500 mg 24 hr tablet Take 1,000 mg by mouth daily with breakfast. 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 Recurrent major depression in partial remission*09/28/2020 Prescriptions ordered this encounter Disp Refills Start End LACOSAMIDE 50 MG TABLET 168 * 0 02/07/2024 02/07/2024 Cmt: Wk 1: LCM 150/200 Wk 2: LCM 150 BID Wk 3: LCM 100/150 Wk 4: LCM 100 BID Wk 5: LCM 50/100 Wk 6: LCM 50 BID Wk 7: LCM 50 QHS Sig: Please follow wean schedule provided via Shots LACOSAMIDE 50 MG TABLET 168 * 0 02/07/2024 02/07/2024 Sig: Please follow wean schedule provided via Shots LACOSAMIDE 50 MG TABLET 168 * 0 02/07/2024 04/07/2024 Cmt: Wk 1: LCM 150/200 Wk 2: LCM 150 BID Wk 3: LCM 100/150 Wk 4: LCM 100 BID Wk 5: LCM 50/100 Wk 6: LCM 50 BID Wk 7: LCM 50 QHS Wk 8: STOP LCM Sig: Please follow wean schedule provided via Shots Medications Discontinued During This Encounter Prescriptions - lacosamide (VIMPAT) 200 mg (Discontinued) Take 1 tablet by mouth two times a day for 180 days. 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 - lacosamide (VIMPAT) 50 mg tab (Discontinued) Please follow titration schedule to wean Lacosamide provided in MyChart - lacosamide (VIMPAT) 50 mg tab (Discontinued) Please follow wean schedule provided via MyChart - lacosamide (VIMPAT) 50 mg tab (Discontinued) Please follow wean schedule provided via MyChart Encounter Status:Closed by HOSEA KU on 02/07/24 Normal [facility] CNOVon 01-09-2024 CNOV Office Visit (NE50MN ) QUENTIN BIRD ([id number]) 4 F Date Time Provider Department 01/09/24 2:40 PM DAISY DE LEON NE50MN During your visit today, we recorded the following information about you: Pulse Respiration Blood pressure Weight 62/minute 18/minute 114/68 70.3 kg Height Last Period 1.524 m 12/27/23 Daisy De Leon DO 01/09/2024 3:45 PM Signed [facility] Patient Name: Quentin Bird Date of : 2000 ESTABLISHED EPILEPSY CLINIC NOTE 01/09/2024 2:40 PM Reason for Visit: Established Patient and Follow Up Clinical Summary: Ms. Bird is a 23 year old female seen in [facility]. Classification Summary HISTORY OF PRESENT ILLNESS Handedness: Age of onset: Seizure History and Evolution Quentin Bird is a 23 year old left handed woman (has a left handed sister and both grandpas left handed) with a past medical history of RAHEEL, anxiety and depression that presents here today for transfer to adult epilepsy care. She presents here today with her mom Shaylee. September 11 2019 (around age 19), Quentin had her first seizure. Quentin was asleep in a chair and her sister noticed a body jerk on Quentin. When mother arrived, Quentin was blue and she was convulsing and foaming at the mouth. EMS arrived and took her to the local hospital. She got fluids and for a CT scan. Postictal was confusion and lost of memory for 3 hours. Quentin has not recollection of the seizure or what she has done before the seizure or in previous days before the seizure. Short term memory was truly affected. She could talk after the seizure but memory was impaired. Seizure occurred out of sleep. Quentin reports not aura. In hindsight they realized that she was having a lot of staring off into space. She would snap out of it if you should call her name. Now concerned she was having seizures. She was started on a medicine around October 2023. She was started on lacosamide. Mother reported that they received an alert from Quentin's iwatch of a tachycardia on 159-160s at 3:15 am but not seizure was observed. Quentin has been reported excessive tiredness since she had the seizures and she is sweating very easily since she had the seizure. This can happen inside or outside. Sleep is 8-9 hours with no interruptions. She is also taking naps if she not busy. Quentin has 2 jobs and she plays soccer. 11/13/23: She does not think the lacosamide is working well for her anymore. Has noticed that the jerks are more frequently. Dropping things. Feeling like she is out of her body. She has not been on any medicines other than lacosamide. Most of her generalized seizures have been out of sleep. Has only been a couple while awake. Started on lacosamide 100 mg twice per day. Went 2.5 years without having one. Then later increased for seizure. August 2023 it was increased for seizure. She is currently on lacosamide 200 mg twice per day. She does not know if her last medicine increase helped, did not see a noticeable difference. She is taking extra medicines, one lacosamide 200 mg, 3 or 4 times a month because she is feeling like she is going to have seizure. 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 Currently holding off because of the last seizure. She feels like her memory is horrible since her first seizure. She lives at home with her mom currently. She takes metformin for possible PCOS. She takes folic acid 2 mg daily. She would like to have kids eventually. Further in the future. Not currently on any type of control. She is currently on wellbutrin 150 mg daily. She has been on this for several years. She has had pretty severe depression in the past. Was on one medicine and had an attempt. Interval Seizure History Quentin Bird is a 23 year old left handed woman (has a left handed sister and both grandpas left handed) with a past medical history of RAHEEL, anxiety and depression that presents here today for follow up for epilepsy. When she was last seen she was started on lamotrigine titration. She is currently taking two in the AM and two in the PM. She is groggy in the morning for about an hour after she wakes up. She remains on lacosamide 200 mg twice per day. Since she was last seen she had one seizures. December 22 2023. She was at work. She was talking and then she stared off into space and then started shaking. Lasted 3.5 minutes. They had to give her IV lorazepam afterwards because they could not get her to calm down. She went in and out of consciousness. This was a little unusual for her. She is now off of the wellbutrin. She is not sure what she was put on. She feels like her mood is all over the place. Maybe getting a little better. She has been having (more content not included)... Normal [facility]20[facility] QUENTIN BIRD ([id number]) 4 F Date Time Provider Department 01/09/24 DAISY DE LEON NE50MN During your visit today, we recorded the following information about you: Asuncion Garcia RN 01/09/2024 4:24 PM Signed Daisy De Leon DO Beitler, Nina, RN Can we please send an order for trough lamotrigine level, CBC, CMP to [facility]? To be drawn after lamotrigine titration complete. Routed for lab orders. BRAYDEN Hunter Ailis, PA-C 01/09/2024 4:29 PM Signed Lab orders placed. TOO Chung Nina, RN 01/09/2024 4:33 PM Signed Lab order form sent to Mario Rojas to review and sign via Dotstudioz. BRAYDEN Hunter Nina, RN 01/10/2024 11:29 AM Signed Lab order form signed by Mario Rojas via Dotstudioz. ArtistForce message sent to pt, in this encounter, to confirm laboratory. BRAYDEN Hunter Nina, RN 01/10/2024 2:27 PM Signed Pt will be going to [facility] (fax #: [phone]). Lab order form sent to [facility] (fax #: [phone]) via LiveHive. Confirmation received. 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 - magnesium hydroxide (MAGNESIA ORAL) Take 500 mg by mouth once daily. - lacosamide (VIMPAT) 200 mg Take 1 tablet by mouth two times a day for 180 days. 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 - midazolam (NAYZILAM) 5 mg/spray (0.1 mL) nasal spray Use 1 spray in one nostril as needed for seizures lasting longer than 2 minutes. May repeat dose in alternate nostril after 10 minutes based on response and tolerability. - lamoTRIgine (LAMICTAL) 25 mg tablet Take 1 tablet by mouth two times a day. Week 1 and 2: 25 mg once per day. Week 3 and 4: 25 mg twice per day. Week 5: 25 mg AM, 50 mg PM, Week 6: 50 mg twice per day. Week 7: 50 mg AM, 75 mg PM, Week 8: 75 mg twice per day, Week 9: 75 mg AM, 100 mg PM, Week 10: 100 mg twice per day. Week 11: 100 mg AM, 125 mg PM, Week 12: 125 mg twice per day. Then continue 125 mg twice per day. - folic acid 1 mg tablet Take 2 tablets by mouth once daily. - metFORMIN ER (GLUCOPHAGE XR) 500 mg 24 hr tablet Take 1,000 mg by mouth daily with breakfast. 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 Comment on above: Performed By: #### C MP, CBC, PRL #### [facility] [address] [place] [address] ALT [Catalytic activity/Vol] Alanine aminotransferase [Enzymatic activity/volume] in Serum or Plasma [facility] Albumin [Mass/volume] in Ser um or Plasma by Bromocresol green (BCG) dye binding methoOrdered By: Valdez Manrique on 12-22-2023 Albumin BCG dye [Mass/Vol] 4.8 g/dL 3.5-5.[address] [facility] Albumin BCG dye [Mass/Vol] Albumin [Mass/volume] in Serum or Plasma by Bromocresol green (BCG) dye binding metho 3.5-5.[address] [facility] Alkaline phosphatase [Enzyma tic activity/volume] in Serum or PlasmaOrdered By: Valdez Manrique on 12-22-2023 ALP [Catalytic activity/Vol] 74 U/L Normal 34- [facility] Comment on above: Performed By: #### C MP, CBC, PRL #### [address] ALP [Catalytic activity/Vol] Alkaline phosphatase [Enzymatic activity/volume] in Serum or Plasma [id number] [facility] Aspartate aminotransferase [ Enzymatic activity/volume] in Serum or PlasmaOrdered By: Valdez Manrique on 12-22-2023 AST [Catalytic activity/Vol] 12 U/L Low [address] Comment on above: Performed By: #### C MP, CBC, PRL #### [address] AST [Catalytic activity/Vol] Aspartate aminotransferase [Enzymatic activity/volume] in Serum or Plasma Low [address] Automated basophil %Ordered By: Valdez Manrique on 12-22-2023 Basophils/100 WBC (Bld) 0.5 % Normal . [facility] Comment on above: Performed By: #### C MP, CBC, PRL #### [address] Automated basophil countOrde red By: Valdez Manrique on 12-22-2023 Basophils (Bld) [#/Vol] 0.0 10*3/uL Normal 0.0-0.[address] [facility] Comment on above: Result Comment: PERF ORMED BY: [place] [address] PATHOLOGIST BUTTON TACKER OLU MEJIA M.D. Performed By: #### C MP, CBC, PRL #### [facility] [address] [place] [address] Automated blood monocyte cou ntOrdered By: Valdez Manrique on 12-22-2023 Monocytes (Bld) [#/Vol] 0.9 10*3/uL High 0.0-0.[address] [facility] Comment on above: Performed By: #### C MP, CBC, PRL #### [address] Automated eosinophil %Ordere d By: Valdez Manrique on 12-22-2023 Eosinophils/100 WBC (Bld) 1.0 % Normal . [facility] Comment on above: Performed By: #### C MP, CBC, PRL #### [address] Automated eosinophil countOr dered By: Valdez Manrique on 12-22-2023 Eosinophils (Bld) [#/Vol] 0.1 10*3/uL Normal 0.0-0.[address] [facility] Comment on above: Performed By: #### C MP, CBC, PRL #### [address] Automated monocyte %Ordered By: Valdez Manrique on 12-22-2023 Monocytes/100 WBC (Bld) 10.2 % Normal . [facility] Comment on above: Performed By: #### C MP, CBC, PRL #### [address] Automated neutrophil %Ordere d By: Valdez Manrique on 12-22-2023 Neutrophils/100 WBC (Bld) 55.5 % Normal . [facility] Comment on above: Performed By: #### C MP, CBC, PRL #### [address] Basophils Auto (Bld) [#/Vol] Ordered By: Valdez Manrique on 12-22-2023 Basophils (Bld) [#/Vol] Automated basoph il count 0.0-0.[address] [facility] Basophils/100 WBC Auto (Bld) Ordered By: Valdez Manrique on 12-22-2023 Basophils/100 WBC (Bld) Automated basophil % . [facility] Bilirubin.total [Mass/volume ] in Serum or PlasmaOrdered By: Valdez Manrique on 12-22-2023 Bilirubin [Mass/Vol] 0.3 mg/dL Normal 0.3-1.0 [facility] Comment on above: Performed By: #### C MP, CBC, PRL #### [address] [place] [address] [facility] Bilirubin [Mass/Vol] Bilirubin.total [Mass/volume] in Serum or Plasma 0.3-1.[address] [facility] Calcium [Mass/volume] in Ser um or PlasmaOrdered By: Valdez Manrique on 12-22-2023 Calcium [Mass/Vol] 8.8 mg/dL Normal 8.6-10.3 [facility] Comment on above: Performed By: #### C MP, CBC, PRL #### [facility] [address] [id number] [facility] Calcium [Mass/Vol] Calcium [Mass/volume ] in Serum or Plasma 8.6-10.[address] [facility] Carbon dioxide, total [Moles /volume] in Serum or PlasmaOrdered By: Valdez Manrique on 12-22-2023 CO2 [Moles/Vol] 20.8 mmol/L Low 21.0-31.0 [facility] Comment on above: Performed By: #### C MP, CBC, PRL #### [facility] [address] [id number] [facility] CO2 [Moles/Vol] Carbon dioxide, tota l [Moles/volume] in Serum or Plasma Low 21.0-31.[address] [facility] Chloride [Moles/volume] in S benedicto or PlasmaOrdered By: Valdez Manrique on 12-22-2023 Chloride [Moles/Vol] 104 mmol/L Normal 98-107 [facility] Comment on above: Performed By: #### C MP, CBC, PRL #### [facility] [address] [id number] [facility] Chloride [Moles/Vol] Chloride [Moles/volume] in Serum or Plasma 98-[address] [facility] Complete Blood Count Auto Di ffon 12-22-2023 Mean Corpuscular HGB Conc 34.3 g/dL Normal 32.0-35.0 [facility] Comment on above: Performed By: #### C MP, CBC, PRL #### [facility] [address] [place] [address] [place] Monocytes/100 WBC (Bld) 16.10 % Normal 0.00-20.00 T shilpa [facility] Comment on above: Performed By: #### C MP, CBC, PRL #### [facility] [address] NRBC% 0.1 /100{WBC} Normal 0-0.5 [facility] Comment on above: Performed By: #### C MP, CBC, PRL #### [facility] [address] Comprehensive Metabolic Pane bridger 12-22-2023 Albumin [Mass/Vol] 4.8 g/dL Normal 3.5-5.7 [facility] Comment on above: Performed By: #### C MP, CBC, PRL #### [address] Creatinine Clr Calc Pharmacy 78.96 Normal [facility] Comment on above: Performed By: #### C MP, CBC, PRL #### [place] [address] [place] GFR/1.73 sq M.predicted MDRD (S/P/Bld) [Vol rate/Area] mL/min/{1.73_m2} Normal [facility] Comment on above: Performed By: #### C MP, CBC, PRL #### [address] Creatinine [Mass/volume] in Serum or PlasmaOrdered By: Valdez Manrique on 12-22-2023 Creatinine [Mass/Vol] 0.97 mg/dL Normal 0.60-1.20 [facility] Comment on above: Performed By: #### C MP, CBC, PRL #### [address] Creatinine [Mass/Vol] Creatinine [Mass/volume] in Serum or Plasma 0.60-1.[address] [facility] ECG 12 lead ECGon 12-22-2023 ECG 12 lead ECG [facility] [place] [address] [place] [address] Electrocardiograph Report Signed Patient: Quentin Bird MR#: [id number] : 2000 Acct:[id number] Age/Sex: 23 / F ADM Date: 12/22/23 Loc: ER Room: Type: [facility] ER Attending Dr: Ordering Provider: Valdez Manrique PA-C Date of Service: 12/22/2305/11/1657 ECG/ECG 12 lead ECG: Seizure Copies to: Test Reason : Blood Pressure : 119/87 mmHG Vent. Rate : 157 BPM Atrial Rate : 157 BPM P-R Int : 128 ms QRS Dur : 74 ms QT Int : 266 ms P-R-T Axes : 20 13 41 degrees QTcB Int : 430 ms Sinus tachycardia Nonspecific ST abnormality Confirmed by Abraham Hilton DO ([id number]) on 12/22/2023 7:52:16 PM Referred By: Electronically Signed By: Abraham Hilton DO Transcribed By: MUS Signed By Abraham Hilton DO 1949 Normal [facility] Eosinophils Auto (Bld) [#/Vo l]Ordered By: Valdez Manrique on 12-22-2023 Eosinophils (Bld) [#/Vol] Automated eosinophil count 0.0-0.[address] [facility] Eosinophils/100 WBC Auto (Bl d)Ordered By: Valdez Manrique on 12-22-2023 Eosinophils/100 WBC (Bld) Automated eosinophil % . [facility] Erythrocyte distribution wid th Auto (RBC) [Ratio]Ordered By: Valdez Manrique on 12-22-2023 Erythrocyte distribution width (RBC) [Ratio] Erythrocyte distribution width [Ratio] by Automated count 11.9-15.[address] [facility] Erythrocyte distribution wid th [Ratio] by Automated countOrdered By: Valdez Manrique on 12-22-2023 Erythrocyte distribution width (RBC) [Ratio] 13.4 % Normal 11.9-15.[address] [facility] Comment on above: Performed By: #### C MP, CBC, PRL #### [address] Erythrocytes [#/volume] in B lood by Automated countOrdered By: Valdez Manrique on 12-22-2023 RBC (Bld) [#/Vol] 4.36 10*6/uL Normal 3.60-5.00 [facility] Comment on above: Performed By: #### C MP, CBC, PRL #### [facility] [address] Globulin Calc (S) [Mass/Vol] Ordered By: Valdez Manrique on 12-22-2023 Globulin (S) [Mass/Vol] Serum globulin measurement by calculation (mass/volume) [facility] Glucose [Mass/volume] in Ser um or PlasmaOrdered By: Valdez Manrique on 12-22-2023 Glucose [Mass/Vol] 93 mg/dL Normal 70-100 [facility] Comment on above: ADA recommended refe rence rangeRandom Glucose Reference Range is dependent on time and content of last meal. Glucose of more than 200 mg/dL in a nonstressed, ambulatory subject supports the diagnosis of Diabetes Mellitus. Result Comment: [place] Glucose Reference Range is dependent on time and content of last meal. Glucose of more than 200 mg/dL in a nonstressed, ambulatory subject supports the diagnosis of Diabetes Mellitus. ADA recommended reference range Performed By: #### C MP, CBC, PRL #### [facility] [address] Glucose [Mass/Vol] Glucose [Mass/volume ] in Serum or Plasma 70-[address] [facility] Comment on above: ADA recommended refe rence rangeRandom Glucose Reference Range is dependent on time and content of last meal. Glucose of more than 200 mg/dL in a nonstressed, ambulatory subject supports the diagnosis of Diabetes Mellitus. Hematocrit Auto (Bld) [Volum e fraction]Ordered By: Valdez Manrique on 12-22-2023 Hematocrit (Bld) [Volume fraction] Hematocrit [Volume Fraction] of Blood by Automated count 34.0-46.[address] [facility] Hematocrit [Volume Fraction] of Blood by Automated countOrdered By: Valdez Manrique on 12-22-2023 Hematocrit (Bld) [Volume fraction] 40.5 % Normal 34.0-46.[address] [facility] Comment on above: Performed By: #### C MP, CBC, PRL #### [facility] [address] Hemoglobin [Mass/volume] in BloodOrdered By: Valdez Manrique on 12-22-2023 Hemoglobin (Bld) [Mass/Vol] 13.9 g/dL Normal 11.8-15.[address] [facility] Comment on above: Performed By: #### C MP, CBC, PRL #### [facility] [address] Hemoglobin (Bld) [Mass/Vol] Hemoglobin [Mass/volume] in Blood 11.8-15.[address] [facility] Leukocytes [#/volume] correc chandan for nucleated erythrocytes in Blood by Automated counOrdered By: Valdez Manrique on 12-22-2023 WBC corrected for nucl RBC Auto (Bld) [#/Vol] 9.2 10*3/uL 3.8-11.[address] [facility] WBC corrected for nucl RBC Auto (Bld) [#/Vol] Leukocytes [#/volume] corrected for nucleated erythrocytes in Blood by Automated coun 3.8-11.[address] [facility] Leukocytes [#/volume] in Blo od by Automated countOrdered By: Valdez Manrique on 12-22-2023 WBC (Bld) [#/Vol] 9.2 10*3/uL Normal 3.8-11.6 [facility] Comment on above: Performed By: #### C MP, CBC, PRL #### [facility] [address] [place] [address] Lymphocytes Auto (Bld) [#/Vo l]Ordered By: Valdez Manrique on 12-22-2023 Lymphocytes (Bld) [#/Vol] Lymphocytes [#/volume] in Blood by Automated count 1.00-4.[address] [facility] Lymphocytes [#/volume] in Bl ood by Automated countOrdered By: Valdez Manrique on 12-22-2023 Lymphocytes (Bld) [#/Vol] 3.0 10*3/uL Normal 1.00-4.[address] [facility] Comment on above: Performed By: #### C MP, CBC, PRL #### [facility] [address] [place] [address] Lymphocytes/100 WBC Auto (Bl d)Ordered By: Valdez Manrique on 12-22-2023 Lymphocytes/100 WBC (Bld) Lymphocytes/100 leukocytes in Blood by Automated count . [facility] Lymphocytes/100 leukocytes i n Blood by Automated countOrdered By: Valdez Manrique on 12-22-2023 Lymphocytes/100 WBC (Bld) 32.8 % Normal . [facility] Comment on above: Performed By: #### C MP, CBC, PRL #### [facility] [address] [place] [address] MCH Auto (RBC) [Entitic mass ]Ordered By: Valdez Manrique on 12-22-2023 MCH (RBC) [Entitic mass] MCH [Entitic mass] by Automated count 24.7-34.[address] [facility] MCH [Entitic mass] by Automa chandan countOrdered By: Valdez Manrique on 12-22-2023 MCH (RBC) [Entitic mass] 31.9 pg Normal 24.7-34.[address] [facility] Comment on above: Performed By: #### C MP, CBC, PRL #### [address] MCHC Auto (RBC) [Mass/Vol]Or dered By: Valdez Manrique on 12-22-2023 MCHC (RBC) [Mass/Vol] 34.3 g/dL 32.0-35.0 [facility] MCHC (RBC) [Mass/Vol] MCHC [Mass/volume] by Automated count 32.0-35.[address] [facility] MCV Auto (RBC) [Entitic vol] Ordered By: Valdez Manrique on 12-22-2023 MCV (RBC) [Entitic vol] MCV [Entitic vol ume] by Automated count 80-[address] [facility] MCV [Entitic volume] by Auto mated countOrdered By: Valdez Manrique on 12-22-2023 MCV (RBC) [Entitic vol] 92.8 fL Normal 80-100 [facility] Comment on above: Performed By: #### C MP, CBC, PRL #### [facility] [address] [place] [address] Monocyte distribution width [Entitic volume] in Blood by AutomatedOrdered By: Valdez Manrique on 12-22-2023 Monocyte distribution width Auto (Bld) [Entitic vol] 16.10 % 0.00-20.[address] [facility] Monocyte distribution width Auto (Bld) [Entitic vol] Monocyte distribution width [Entitic volume] in Blood by Automated 0.00-20.[address] [facility] Monocytes Auto (Bld) [#/Vol] Ordered By: Valdez Manrique on 12-22-2023 Monocytes (Bld) [#/Vol] Automated blood monocyte count High 0.0-0.[address] [facility] Monocytes/100 WBC Auto (Bld) Ordered By: Valdez Manrique on 12-22-2023 Monocytes/100 WBC (Bld) Automated monocyte % . [facility] Neutrophils Auto (Bld) [#/Vo l]Ordered By: Valdez Manrique on 12-22-2023 Neutrophils (Bld) [#/Vol] Neutrophils [#/volume] in Blood by Automated count 1.8-7.[address] [facility] Neutrophils [#/volume] in Bl ood by Automated countOrdered By: Valdez Manrique on 12-22-2023 Neutrophils (Bld) [#/Vol] 5.1 10*3/uL Normal 1.8-7.[address] [facility] Comment on above: Performed By: #### C MP, CBC, PRL #### [facility] [address] [place] [address] Neutrophils/100 WBC Auto (Bl d)Ordered By: Valdez Manrique on 12-22-2023 Neutrophils/100 WBC (Bld) Automated neutrophil % . [facility] No Panel InformationOrdered By: Valdez Manrique on 12-22-2023 Estimated GFR (CKD-EPI) > 60.0 mL/Min [facility] Creatinine Clearance (Chem 78.[address] [facility] Nucleated erythrocytes [Pres ence] in Blood by Automated countOrdered By: Valdez Manrique on 12-22-2023 Nucleated RBC Auto Ql (Bld) 0.1 /100{WBC} 0-0.[address] [facility] Nucleated RBC Auto Ql (Bld) Nucleated erythrocytes [Presence] in Blood by Automated count 0-0.[address] [facility] Platelet mean volume Auto (B ld) [Entitic vol]Ordered By: Valdez Manrique on 12-22-2023 Platelet mean volume (Bld) [Entitic vol] Platelet mean volume [Entitic volume] in Blood by Automated count 6.3-10.[address] [facility] Platelet mean volume [Entiti c volume] in Blood by Automated countOrdered By: Valdez Manrique on 12-22-2023 Platelet mean volume (Bld) [Entitic vol] 8.4 fL Normal 6.3-10.[address] [facility] Comment on above: Performed By: #### C MP, CBC, PRL #### [address] Platelets Auto (Bld) [#/Vol] Ordered By: Valdez Manrique on 12-22-2023 Platelets (Bld) [#/Vol] Platelets [#/vol ume] in Blood by Automated count 150-[address] [facility] Platelets [#/volume] in Bloo d by Automated countOrdered By: Valdez Manrique on 12-22-2023 Platelets (Bld) [#/Vol] 296 10*3/uL Normal 150-[address] [facility] Comment on above: Performed By: #### C MP, CBC, PRL #### [address] Potassium [Moles/volume] in Serum or PlasmaOrdered By: Valdez Manrique on 12-22-2023 Potassium [Moles/Vol] 3.6 mmol/L Normal 3.5-5.1 [facility] Comment on above: Performed By: #### C MP, CBC, PRL #### [address] Potassium [Moles/Vol] Potassium [Moles/volume] in Serum or Plasma 3.5-5.[address] [facility] Prolactinon 12-22-2023 Prolactin 118.42 ng/mL High 3.34-26.72 [facility] Comment on above: Result Comment: PERF ORMED BY: [place] [address] PATHOLOGIST BUTTON TACKER OLU MEJIA M.D. Performed By: #### C MP, CBC, PRL #### [address] Prolactin [Mass/volume] in S benedicto or PlasmaOrdered By: Valdez Manrique on 11-03-2024 Prolactin [Mass/Vol] 118.42 ng/mL High 3.34-26.72 [facility] Prolactin [Mass/Vol] Prolactin [Mass/volume] in Serum or Plasma High 3.34-26.[address] [facility] Protein [Mass/volume] in Ser um or PlasmaOrdered By: Valdez Manrique on 12-22-2023 Protein [Mass/Vol] 7.9 g/dL Normal 6.4-8.9 [facility] Comment on above: Performed By: #### C MP, CBC, PRL #### [address] Protein [Mass/Vol] Protein [Mass/volume ] in Serum or Plasma 6.4-8.[address] [facility] RBC Auto (Bld) [#/Vol]Ordere d By: Valdez Manrique on 12-22-2023 RBC (Bld) [#/Vol] Erythrocytes [#/volume] in Blood by Automated count 3.60-5.[address] [facility] Serum globulin measurement b y calculation (mass/volume)Ordered By: Valdez Manrique on 12-22-2023 Globulin (S) [Mass/Vol] 3.1 g/dL Normal [facility] Comment on above: Performed By: #### C MP, CBC, PRL #### [address] Serum or plasma albumin/glob ulin mass ratioOrdered By: Valdez Manrique on 12-22-2023 Albumin/Globulin [Mass ratio] 1.5 {ratio} Normal [facility] Comment on above: Performed By: #### C MP, CBC, PRL #### [address] Albumin/Globulin [Mass ratio] Serum or plasma albumin/globulin mass ratio [facility] Serum or plasma anion gap de terminationOrdered By: Valdez Manrique on 12-22-2023 Anion gap [Moles/Vol] 17.8 mmol/L High 6.0-15.0 [facility] Comment on above: Performed By: #### C MP, CBC, PRL #### [address] Anion gap [Moles/Vol] Serum or plasma an ion gap determination High 6.0-15.[address] [facility] Sodium [Moles/volume] in Ser um or PlasmaOrdered By: Valdez Manrique on 12-22-2023 Sodium [Moles/Vol] 139 mmol/L Normal 136-145 [facility] Comment on above: Performed By: #### C MP, CBC, PRL #### [facility] [address] [place] [id number] [facility] Sodium [Moles/Vol] Sodium [Moles/volume ] in Serum or Plasma 136-[address] [facility] Urea nitrogen [Mass/volume] in Serum or PlasmaOrdered By: Valdez Manrique on 12-22-2023 Urea nitrogen [Mass/Vol] 6 mg/dL Low 09-[address] [facility] Comment on above: Performed By: #### C MP, CBC, PRL #### [facility] [address] [place] [id number] [facility] Urea nitrogen [Mass/Vol] Urea nitrogen [Mass/volume] in Serum or Plasma Low -[address] [facility] WBC Auto (Bld) [#/Vol]Ordere d By: Valdez Manrique on 12-22-2023 WBC (Bld) [#/Vol] Leukocytes [#/volume ] in Blood by Automated count 3.8-11.[address] [facility] CNPAmanda 12-19-2023 CNPN Telephone (NE50MN) QUENTIN BIRD ([id number]) 4 F Date Time Provider Department 12/19/23 DAISY DE LEON NE50MN During your visit today, we recorded the following information about you: Joellen Breaux 12/19/2023 8:01 AM Signed Prior Authorization Needed: Received by: Fax Requested by (pharmacy name): [facility] Phone number: [phone] Name of medication: Nayzilam Strength and dosage: 5mgSig: Use 1 spray in one nostril as needed for seizures lasting longer than 2 minutes. Insurance company name and phone #: CMM HUNTER: [email or web address] Patient ID: PCN #: BIN#: Group #: Patient of Dr. De Leon Forwarded to nurse. Asuncion Garcia RN 12/19/2023 11:04 AM Signed PA done via CMM. (Hunetr: [id number]) PA Rx #: [id number] Status: sent to plan. BRAYDEN Hunter Nina, RN 12/19/2023 11:16 AM Signed Pharmacy called and made aware. Asuncion Garcia RN Allergies As of Date: 12/19/2023 (No Known Allergies) Date Reviewed: 11/13/2023 Reviewed by: Ramona Crabtree MA - Fully Assessed Reason for Visit: Medication Authorization [1699] Cmt: Nayzilam Prescriptions as of 12/19/2023 - lacosamide (VIMPAT) 200 mg Take 1 tablet by mouth two times a day for 180 days. 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 - midazolam (NAYZILAM) 5 mg/spray (0.1 mL) nasal spray Use 1 spray in one nostril as needed for seizures lasting longer than 2 minutes. May repeat dose in alternate nostril after 10 minutes based on response and tolerability. - lamoTRIgine (LAMICTAL) 25 mg tablet Take 1 tablet by mouth two times a day. Week 1 and 2: 25 mg once per day. Week 3 and 4: 25 mg twice per day. Week 5: 25 mg AM, 50 mg PM, Week 6: 50 mg twice per day. Week 7: 50 mg AM, 75 mg PM, Week 8: 75 mg twice per day, Week 9: 75 mg AM, 100 mg PM, Week 10: 100 mg twice per day. Week 11: 100 mg AM, 125 mg PM, Week 12: 125 mg twice per day. Then continue 125 mg twice per day. - folic acid 1 mg tablet Take 2 tablets by mouth once daily. - buPROPion XL (WELLBUTRIN XL) 150 mg 24 hr tablet Take 150 mg by mouth. - metFORMIN ER (GLUCOPHAGE XR) 500 mg 24 hr tablet Take 1,000 mg by mouth daily with breakfast. 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 De Leon Forwarded to nurse. Asuncion Garcia RN 11/19/2023 12:54 PM Signed [facility] form received. Onset- 4 years (2019) Last SZ- 09/08/2023 [facility] form is for ID purposes only. [facility] form sent to Dr. De Leon to review and sign via [employer]. BRAYDEN Hunter Nina, RN 11/19/2023 1:07 PM Signed [facility] form signed by Dr. De Leon via [employer]. Copies sent to [employer], pt e-mail and [facility] special unit via [employer]. Asuncion Garcia RN Allergies As of Date: 11/19/2023 (No Known Allergies) Date Reviewed: 11/13/2023 Reviewed by: Ramona Crabtree MA - Fully Assessed Reason for Visit: Forms [367] Cmt: [facility] Prescriptions as of 11/19/2023 - midazolam (NAYZILAM) 5 mg/spray (0.1 mL) nasal spray Use 1 spray in one nostril as needed for seizures lasting > 2 minutes. May repeat dose in alternate nostril after 10 minutes based on response and tolerability. - lamoTRIgine (LAMICTAL) 25 mg tablet Take 1 tablet by mouth two times a day. Week 1 and 2: 25 mg once per day. Week 3 and 4: 25 mg twice per day. Week 5: 25 mg AM, 50 mg PM, Week 6: 50 mg twice per day. Week 7: 50 mg AM, 75 mg PM, Week 8: 75 mg twice per day, Week 9: 75 mg AM, 100 mg PM, Week 10: 100 mg twice per day. Week 11: 100 mg AM, 125 mg PM, Week 12: 125 mg twice per day. Then continue 125 mg twice per day. - lacosamide (VIMPAT) 200 mg Take 1 tablet by mouth two times a day. 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 - folic acid 1 mg tablet Take 2 tablets by mouth once daily. - buPROPion XL (WELLBUTRIN XL) 150 mg 24 hr tablet Take 150 mg by mouth. - metFORMIN ER (GLUCOPHAGE XR) 500 mg 24 hr tablet Take 1,000 mg by mouth daily with breakfast. 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 MC message sent to pt, in this encounter. Asuncion Garcia RN Allergies As of Date: 11/14/2023 (No Known Allergies) Date Reviewed: 11/13/2023 Reviewed by: Ramona Crabtree MA - Fully Assessed Reason for Visit: Forms [913] Prescriptions as of 11/18/2023 - midazolam (NAYZILAM) 5 mg/spray (0.1 mL) nasal spray Use 1 spray in one nostril as needed for seizures lasting > 2 minutes. May repeat dose in alternate nostril after 10 minutes based on response and tolerability. - lamoTRIgine (LAMICTAL) 25 mg tablet Take 1 tablet by mouth two times a day. Week 1 and 2: 25 mg once per day. Week 3 and 4: 25 mg twice per day. Week 5: 25 mg AM, 50 mg PM, Week 6: 50 mg twice per day. Week 7: 50 mg AM, 75 mg PM, Week 8: 75 mg twice per day, Week 9: 75 mg AM, 100 mg PM, Week 10: 100 mg twice per day. Week 11: 100 mg AM, 125 mg PM, Week 12: 125 mg twice per day. Then continue 125 mg twice per day. - lacosamide (VIMPAT) 200 mg Take 1 tablet by mouth two times a day. 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 - folic acid 1 mg tablet Take 2 tablets by mouth once daily. - buPROPion XL (WELLBUTRIN XL) 150 mg 24 hr tablet Take 150 mg by mouth. - metFORMIN ER (GLUCOPHAGE XR) 500 mg 24 hr tablet Take 1,000 mg by mouth daily with breakfast. 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 Patient Name: Quentin BANEGAS Date of : 2000 INITIAL EPILEPSY CLINIC NOTE 11/13/2023 3:20 PM CHIEF COMPLAINT: New Patient (New NI Patient ) HISTORY OF PRESENT ILLNESS Ms. Bird is a 23 year old female seen in [facility] for initial consultation. Handedness: Age of onset: Seizure History and Evolution Quentin Bird is a 23 year old left handed woman (has a left handed sister and both grandpas left handed) with a past medical history of RAHEEL, anxiety and depression that presents here today for transfer to adult epilepsy care. She presents here today with her mom Shaylee. September 11 2019 (around age 19), Quentin had her first seizure. Quentin was asleep in a chair and her sister noticed a body jerk on Quentin. When mother arrived, Quentin was blue and she was convulsing and foaming at the mouth. EMS arrived and took her to the local hospital. She got fluids and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 Take 150 mg by mouth. bacitracin zinc 500 unit/gram ointment Apply 1 Application to affected area. metFORMIN ER (GLUCOPHAGE XR) 500 mg 24 hr tablet lacosamide (VIMPAT) 50 mg tab Take 1 tablet by mouth two times a day. Take along with 100 mg tablets twice daily = total dose 150 mg twice daily folic acid 1 mg tablet Take 2 tablets by mouth once daily. lacosamide (VIMPAT) 100 mg tab Take 1 tablet by mouth two times a day for 180 days. ee-tp-gasy-FA-Ca carb-vit K (WOMEN'S MULTIVITAMIN) 18 mg-400 mcg- 500 mg-50 mcg tab Take 1 tablet by mouth once daily. midazolam (NAYZILAM) 5 mg/spray (0.1 mL) nasal spray Use 1 spray in one nostril as needed for seizures lasting > 2 minutes. May repeat dose in alternate nostril after 10 minutes based on response and tolerability. escitalopram oxalate (LEXAPRO) 10 mg tablet No current facility-administered medications for this visit. Vital Signs - 02/01/2023: BP 117/70 Pulse 67 Ht 154.5 cm (5' 0.83 ) Wt 68.4 kg (150 lb 14.4 oz) LMP 06/03/2021 (Exact Date) SpO2 100% BMI 28.67 kg/m? . PHYSICAL EXAMINATION: General physical examination remains with in normal limits. Quentin is alert and active, and in no distress. Skin exam, ENT exam, neck exam, and extremities examination show no new findings of concern. NEUROLOGICAL EXAMINATION: Neurological examination remains with in normal limits. DIAGNOSIS: well controlled Juvenile Myoclonic epilepsy. EPILEPSY CLASSIFICATION Juvenile Myoclonic Epilepsy Seizures: 1. 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 She was seizure free from 09/10/2020 until 01/19/2023. We identify some issues with sleep that may contribute to her seizure relapse. Plan to refer to sleep medicine and get a double study PSG + EEG to rule out seep apneas. We are also checking the level of Vimpat and vitamin D. Plan to adjust medications as needed. We discussed reproductive erik and bone health. PLAN: Tests/Labs: levels of Vimpat and Vitamin D Consultation with sleep medicine with PSG and EEG Medications: Continue Vimpat 150mg by mouth twice a day. We will call you with instructions to adjust medication. Continue the folic acid 2 pills every day with with a daily women multivitamin seizures rescue plan: Nayzilam 1 spray in ONE nostril for seizures lasting more than 2 minutes. 4. Ok to take bupropion for depression. Return visit: michael deshpande in 2023 Call if seizures or myoclonic jerks in the hands The possible risks, benefits, an (more content not included)... Normal [facility] LACOSAMIDEon 02-01-2023 DESMETHYLLACOSAMIDE 0.9 ug/mL Normal <2.6 [facility] Comment on above: Order Comment: Manuela lockett Type: BLOOD SPECIMEN Ordering Facility: [facility] Address: [address] [place] [address] Result Comment: Expe cted concentration of patients receiving 200-400 mg/day is up to 2.5 ug/mL for Desmethyllacosamide. This test was developed and its performance characteristics determined by [facility] [place] ([facility]). It has not been cleared or approved by the FDA. [facility] is regulated under CLIA as qualified to perform high-complexity testing. This test is used for clinical purposes. It should not be regarded as investigational or for research. Performed By: #### L ACOS #### [facility] CLIA [id number] [address] [place] [address] [place] Lacosamide [Mass/Vol] 6.2 ug/mL Normal 2.2-19.8 [facility] Comment on above: Order Comment: Manuela lockett Type: BLOOD SPECIMEN Ordering Facility: [facility] Address: [address] [place] [address] Result Comment: Expe cted concentration of patients receiving 200-400 mg/day is 2.2-19.8 ug/mL for Lacosamide. This test was developed and its performance characteristics determined by [facility] [place] ([facility]). It has not been cleared or approved by the FDA. [facility] is regulated under CLIA as qualified to perform high-complexity testing. This test is used for clinical purposes. It should not be regarded as investigational or for research. Performed By: #### L ACOS #### [facility] CLIA [id number] [address] [place] [address] [place] Vital Signs Date Time Vital Sign Value Performing Clinician Maris de la paz 10-06-2024 10:08-0400 Body mass index (BMI) [Ratio] 26.79 kg/m2 Jennifer CALLAWAY Work Phone: [facility] 10-06-2024 10:08-0400 Body weight 64.32 kg Jennifer CALLAWAY Work Phone: [facility] 10-06-2024 10:08-0400 Diastolic blood pressure 64 mm[Hg] Jennifer CALLAWAY Work Phone: [facility] 10-06-2024 10:08-0400 Systolic blood pressure 104 mm[Hg] Jennifer CALLAWAY Work Phone: [facility] 09-16-2024 10:07-0400 Body mass index (BMI) [Ratio] 27.63 kg/m2 Andreas Samson CHEMISTRY SPECIALIST Work Phone: [facility] 09-16-2024 10:07-0400 Body weight 66.34 kg Andreas Samson CHEMISTRY SPECIALIST Work Phone: [facility] 09-16-2024 10:07-0400 Diastolic blood pressure 72 mm[Hg] Andreas Samson CHEMISTRY SPECIALIST Work Phone: [facility] 09-16-2024 10:07-0400 Systolic blood pressure 106 mm[Hg] Andreas Samson CHEMISTRY SPECIALIST Work Phone: [facility] 08-27-2024 12:31-0400 Body weight 71.4 kg Nory Aguilar CHEMISTRY SPECIALIST-C Work Phone: [facility] 08-27-2024 12:31-0400 Diastolic blood pressure 72 mm[Hg] Nory Aguilar CHEMISTRY SPECIALIST-C Work Phone: [facility] 08-27-2024 12:31-0400 Heart rate 88 /min Nory Aguilar CHEMISTRY SPECIALIST-C Work Phone: [facility] 08-27-2024 12:31-0400 SaO2% (BldA) [Mass fraction] 99 % Nory Aguilar CHEMISTRY SPECIALIST-C Work Phone: [facility] 08-27-2024 12:31-0400 Systolic blood pressure 108 mm[Hg] Nory Aguilar CHEMISTRY SPECIALIST-C Work Phone: [facility] 08-26-2024 14:23-0400 Body mass index (BMI) [Ratio] 27.74 kg/m2 Jonathan Clara DO Work Phone: [facility] 08-26-2024 14:23-0400 Body weight 66.59 kg Jonathan Clara DO Work Phone: [facility] 08-26-2024 14:23-0400 Diastolic blood pressure 68 mm[Hg] Jonathan Clara DO Work Phone: [facility] 08-26-2024 14:23-0400 Systolic blood pressure 104 mm[Hg] Jonathan Clara DO Work Phone: [facility] 06-18-2024 15:28-0400 Body mass index (BMI) [Ratio] 30.04 kg/m2 Christopher Ren DO Work Phone: [facility] 06-18-2024 15:28-0400 Body weight 72.12 kg Christopher Ren DO Work Phone: [facility] 06-18-2024 15:28-0400 Diastolic blood pressure 72 mm[Hg] Christopher Ren DO Work Phone: [facility] 06-18-2024 15:28-0400 Heart rate 79 /min Christopher Ren DO Work Phone: [facility] 06-18-2024 15:28-0400 SaO2% (BldA) [Mass fraction] 98 % Christopher Ren DO Work Phone: [facility] 06-18-2024 15:28-0400 Systolic blood pressure 106 mm[Hg] Christopher Ren DO Work Phone: [facility] 04-13-2024 16:16-0500 Body height 154.9 cm Nory Aguilar NP Work Phone: [facility] 04-13-2024 16:16-0500 Body mass index (BMI) [Ratio] 30.16 kg/m2 Nory Aguilar NP Work Phone: [facility] 04-13-2024 16:16-0500 Body weight 72.39 kg Nory Aguilar CHEMISTRY SPECIALIST Work Phone: [facility] 04-13-2024 16:16-0500 Diastolic blood pressure 78 mm[Hg] Nory Aguilar CHEMISTRY SPECIALIST Work Phone: [facility] 04-13-2024 16:16-0500 Heart rate 64 /min Nory Aguilar CHEMISTRY SPECIALIST Work Phone: [facility] 04-13-2024 16:16-0500 Systolic blood pressure 108 mm[Hg] Norylizy Aguilar CHEMISTRY SPECIALIST Work Phone: [facility] 03-16-2024 17:51-0500 Body temperature 99.6 [degF] PHYSICIAN NO [facility] 03-16-2024 17:51-0500 Diastolic blood pressure 53 mm[Hg] PHYSICIAN NO [facility] 03-16-2024 17:51-0500 Heart rate 119 /min PHYSICIAN NO [facility] 03-16-2024 17:51-0500 Respiratory rate 18 /min PHYSICIAN NO [facility] 03-16-2024 17:51-0500 SaO2% (BldA) [Mass fraction] 99 % PHYSICIAN NO [facility] 03-16-2024 17:51-0500 Systolic blood pressure 101 mm[Hg] PHYSICIAN NO [facility] 03-16-2024 13:37-0500 Body height 152.4 cm PHYSICIAN NO [facility] 03-16-2024 13:37-0500 Body weight 71.25 kg PHYSICIAN NO [facility] 03-04-2024 09:54-0500 Diastolic blood pressure 73 mm[Hg] PHYSICIAN NO [facility] 03-04-2024 09:54-0500 Heart rate 95 /min PHYSICIAN NO [facility] 03-04-2024 09:54-0500 Respiratory rate 20 /min PHYSICIAN NO [facility] 03-04-2024 09:54-0500 SaO2% (BldA) [Mass fraction] 100 % PHYSICIAN NO [facility] 03-04-2024 09:54-0500 Systolic blood pressure 147 mm[Hg] PHYSICIAN NO [facility] 03-04-2024 09:06-0500 Body height 152.4 cm PHYSICIAN NO [facility] 03-04-2024 09:06-0500 Body temperature 98.8 [degF] PHYSICIAN NO [facility] 03-04-2024 09:06-0500 Body weight 68.07 kg PHYSICIAN NO [facility] 01-09-2024 14:30-0500 Body height 152.4 cm Daisy Chiprean DO Work Phone: [facility] 01-09-2024 14:30-0500 Body mass index (BMI) [Ratio] 30.27 kg/m2 Daisy Chiprean DO Work Phone: [facility] 01-09-2024 14:30-0500 Body weight 70.31 kg Daisy Chiprean DO Work Phone: [facility] 01-09-2024 14:30-0500 Diastolic blood pressure 68 mm[Hg] Daisy Chiprean DO Work Phone: [facility] 01-09-2024 14:30-0500 Heart rate 62 /min Diasy Chiprean DO Work Phone: [facility] 01-09-2024 14:30-0500 Respiratory rate 18 /min Daisy Chiprean DO Work Phone: [facility] 01-09-2024 14:30-0500 SaO2% (BldA) [Mass fraction] 98 % Daisy Chiprean DO Work Phone: [facility] 01-09-2024 14:30-0500 Systolic blood pressure 114 mm[Hg] Daisy Chiprean DO Work Phone: [facility] 12-22-2023 18:17-0500 Diastolic blood pressure 67 mm[Hg] PHYSICIAN NO [facility] 12-22-2023 18:17-0500 Heart rate 125 /min PHYSICIAN NO [facility] 12-22-2023 18:17-0500 Respiratory rate 18 /min PHYSICIAN NO [facility] 12-22-2023 18:17-0500 SaO2% (BldA) [Mass fraction] 100 % PHYSICIAN NO [facility] 12-22-2023 18:17-0500 Systolic blood pressure 125 mm[Hg] PHYSICIAN NO [facility] 12-22-2023 16:55-0500 Body height 152.4 cm PHYSICIAN NO [facility] 12-22-2023 16:55-0500 Body temperature 97.6 [degF] PHYSICIAN NO [facility] 12-22-2023 16:55-0500 Body weight 68.03 kg PHYSICIAN NO [facility] 12-16-2023 09:47-0400 Body mass index (BMI) [Ratio] 31.91 kg/m2 Jennifer CALLAWAY Work Phone: [facility] 12-16-2023 09:47-0400 Body weight 74.12 kg Jennifer CALLAWAY Work Phone: [facility] 12-16-2023 09:47-0400 Diastolic blood pressure 64 mm[Hg] Jennifer CALLAWAY Work Phone: [facility] 12-16-2023 09:47-0400 Systolic blood pressure 102 mm[Hg] Jennifer CALLAWAY Work Phone: [facility] 11-13-2023 14:58-0400 Body height 152.4 cm Daisy De Leon DO Work Phone: [facility] 11-13-2023 14:58-0400 Body mass index (BMI) [Ratio] 29.29 kg/m2 Daisy Davidsonrean DO Work Phone: [facility] 11-13-2023 14:58-0400 Body weight 68.04 kg Daisy Rahmanan DO Work Phone: [facility] 11-13-2023 14:58-0400 Diastolic blood pressure 63 mm[Hg] Daisy De Leon DO Work Phone: [facility] 11-13-2023 14:58-0400 Heart rate 86 /min Daisy De Leon DO Work Phone: [facility] 11-13-2023 14:58-0400 Systolic blood pressure 109 mm[Hg] Daisy De Leon DO Work Phone: [facility] 10-28-2023 15:34-0400 Body height 152.4 cm Jonathan Clara DO Work Phone: [facility] 10-28-2023 15:34-0400 Body mass index (BMI) [Ratio] 30.66 kg/m2 Jonathan Clara DO Work Phone: [facility] 10-28-2023 15:34-0400 Body weight 71.22 kg Jonathan Clara DO Work Phone: [facility] 10-28-2023 15:34-0400 Diastolic blood pressure 78 mm[Hg] Jonathan Clara DO Work Phone: [facility] 10-28-2023 15:34-0400 Systolic blood pressure 118 mm[Hg] Jonathan Clara DO Work Phone: [facility] 08-13-2023 13:46-0400 Body height 152.4 cm Carla Chowdary MD Work Phone: [facility] 08-13-2023 13:46-0400 Body mass index (BMI) [Ratio] 30.96 kg/m2 Carla Chowdary MD Work Phone: [facility] 08-13-2023 13:46-0400 Body temperature 97.59 [degF] Carla Chowdary MD Work Phone: [facility] 08-13-2023 13:46-0400 Body weight 71.9 kg Carla Chowdary MD Work Phone: [facility] 08-13-2023 13:46-0400 Diastolic blood pressure 69 mm[Hg] Carla Chowdary MD Work Phone: [facility] 08-13-2023 13:46-0400 Heart rate 73 /min Carla Chowdary MD Work Phone: [facility] 08-13-2023 13:46-0400 Respiratory rate 20 /min Carla Chowdary MD Work Phone: [facility] 08-13-2023 13:46-0400 SaO2% (BldA) [Mass fraction] 100 % Carla Chowdary MD Work Phone: [facility] 08-13-2023 13:46-0400 Systolic blood pressure 117 mm[Hg] Carla Chowdary MD Work Phone: [facility] 06-14-2023 11:44-0400 Body height 152.4 cm [facility] 06-14-2023 11:44-0400 Body mass index (BMI) [Ratio] 30.2 kg/m2 [facility] 06-14-2023 11:44-0400 Body temperature 98.9 [degF] [facility] 06-14-2023 11:44-0400 Body weight 70.36 kg [facility] 06-14-2023 11:44-0400 Diastolic blood pressure 82 mm[Hg] [facility] 06-14-2023 11:44-0400 Heart rate 96 /min [facility] 06-14-2023 11:44-0400 Respiratory rate 18 /min [facility] 06-14-2023 11:44-0400 SaO2% (BldA) [Mass fraction] 99 % [facility] 06-14-2023 11:44-0400 Systolic blood pressure 126 mm[Hg] [facility] 04-29-2023 12:50-0400 Body height 152.4 cm Thao Pagan MD Work Phone: [facility] 04-29-2023 12:50-0400 Body weight 71.8 kg Thao Pagan MD Work Phone: [facility] 04-29-2023 12:50-0400 Diastolic blood pressure 70 mm[Hg] Thao Pagan MD Work Phone: [facility] 04-29-2023 12:50-0400 Heart rate 70 /min Thao Pagan MD Work Phone: [facility] 04-29-2023 12:50-0400 Systolic blood pressure 104 mm[Hg] Thao Pagan MD Work Phone: [facility] 04-22-2023 05:15-0500 Body height 154.5 cm [facility] Work Phone: [facility] 04-22-2023 05:15-0500 Body weight 68.4 kg Sleep Main Work Phone: [facility] 02-01-2023 15:23-0500 Body height 154.5 cm Carla Chowdary MD Work Phone: [facility] 02-01-2023 15:23-0500 Body weight 68.45 kg Carla Chowdary MD Work Phone: [facility] 02-01-2023 15:23-0500 Diastolic blood pressure 70 mm[Hg] Carla Chowdary MD Work Phone: [facility] 02-01-2023 15:23-0500 Heart rate 67 /min Carla Chowdary MD Work Phone: [facility] 02-01-2023 15:23-0500 SaO2% (BldA) [Mass fraction] 100 % Carla Chowdary MD Work Phone: [facility] 02-01-2023 15:23-0500 Systolic blood pressure 117 mm[Hg] Carla Chowdary MD Work Phone: [facility] Encounters Encounter Date Encounter Type Care Provider Facility Start: 10-06-2024 End: 10-06-2024 Bamboo flowsheet Jennifer CALLAWAY Work Phone: [facility] Start: 10-06-2024 End: 10-06-2024 Bamboo flowsjanes CALLAWAY Work Phone: [facility] Start: 10-06-2024 End: 10-06-2024 Office outpatient visit 15 minutes Jennifer CALLAWAY Work Phone: [facility] Comment on above: Vaginal discharge; STD exposure; Vaginal lesion Start: 09-16-2024 End: 09-16-2024 Bamboo flowsheet Andreas Samson CHEMISTRY SPECIALIST Work Phone: [facility] Start: 09-16-2024 End: 09-18-2024 Bamboo flowsheet Andreas Callahanly CHEMISTRY SPECIALIST Work Phone: [facility] Start: 09-16-2024 End: 09-17-2024 Clinisync Result Encounter Andreas Samson CHEMISTRY SPECIALIST Work Phone: [facility] Unsolicited Start: 09-16-2024 End: 09-18-2024 External Result Encounter Andreas Samson CHEMISTRY SPECIALIST Work Phone: [facility] Unsolicited Start: 09-16-2024 End: 09-16-2024 ambulatory ANDREAS CHAPIN Not Available Start: 09-16-2024 End: 09-16-2024 Office outpatient visit 15 minutes Andreas Samson CHEMISTRY SPECIALIST Work Phone: [facility] Comment on above: STD exposure; Sexually transmitted disease exposure; BV (bacterial vaginosis) Start: 09-07-2024 End: 09-07-2024 ambulatory Kathryn Escobedo APRN-TELEPHONE STATION REPAIRER Facility:[facility] Start: 08-27-2024 End: 08-27-2024 ambulatory Nory Aguilar CHEMISTRY SPECIALIST-C Work Phone: [facility] Work Phone: Start: 08-27-2024 End: 08-27-2024 Patient encounter procedure Gabi Porras [facility] Work Phone: Start: 08-26-2024 End: 08-26-2024 Bamboo flowsheet Jonathan Clara DO Work Phone: [facility] Start: 08-26-2024 End: 08-27-2024 Bamboo flowsheet Jonathan Clara DO Work Phone: [facility] Start: 08-26-2024 End: 08-27-2024 External Result Encounter Andreas Samson CHEMISTRY SPECIALIST Work Phone: [facility] Unsolicited Start: 08-26-2024 End: 08-26-2024 ambulatory JONATHAN CLARA Not Available Start: 08-26-2024 End: 08-26-2024 Office outpatient visit 15 minutes Jonathan Clara DO Work Phone: 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 Work Phone: Start: 05-18-2024 End: 05-18-2024 ambulatory PHYSICIAN NO [facility] Work Phone: Start: 04-20-2024 End: 04-20-2024 External Result Encounter Nory Aguilar NP Work Phone: [facility]solic[facility] Start: 04-20-2024 End: 04-20-2024 External Result Encounter Nory Aguilar NP Work Phone: [facility] Unsolicited Start: 04-20-2024 End: 04-20-2024 Patient encounter procedure PHYSICIAN NO [facility] Work Phone: Start: 04-20-2024 End: 04-20-2024 ambulatory PHYSICIAN NO [facility] Work Phone: Start: 04-20-2024 Encounter for genera l adult medical examination without abnormal findings Nory Aguilar [facility] Start: 04-15-2024 End: 04-15-2024 ambulatory DAISY DE LEON Facility:[facility] Start: 04-13-2024 End: 04-13-2024 ambulatory NORY AGUILAR Not Available Start: 04-13-2024 End: 04-13-2024 Patient encounter status Nory Aguilar NP Work Phone: [facility] Start: 04-13-2024 End: 04-13-2024 Periodic preventive med est patient 18-39 yrs Nory Aguilar NP Work Phone: [facility] Comment on above: Wellness examination (Primary Dx); Juvenile myoclonic epilepsy, not intractable, with status epilepticus (CMS/HCC); Tachycardia; Screening for deficiency anemia; Screening for cardiovascular condition; Screening for thyroid disorder; Screening for lipid disorders; PCOS (polycystic ovarian syndrome); Recurrent major depression in partial remission (HCC) (CMS/HCC); Anxiety and depression (CMS/HCC) Start: 04-13-2024 End: 04-13-2024 Bamboo flowsheet Nory Aguilar NP Work Phone: [facility] Start: 04-13-2024 End: 04-13-2024 Bamboo flowsheet Nory Aguilar CHEMISTRY SPECIALIST Work Phone: [facility] Start: 03-16-2024 End: 03-16-2024 Emergency department patient visit PHYSICIAN NO [facility] Work Phone: Start: 03-04-2024 End: 03-05-2024 ambulatory Daisy De Leon DO Work Phone: Neurology Comment on above: Another seizure Start: 03-04-2024 End: 03-04-2024 Emergency department patient visit PHYSICIAN NO [facility] Work Phone: Start: 03-03-2024 End: 03-04-2024 ambulatory Daisy De Leon DO Work Phone: Neurology Comment on above: Medication question Start: 02-13-2024 End: 02-14-2024 ambulatory Daisy De Leon DO Work Phone: Neurology Comment on above: Starting new medicat ion Start: 02-13-2024 End: 02-13-2024 Telephone encounter Daisy De Leon DO Work Phone: Neurology Comment on above: Medication Problem ( Vimpat - Pharmacy Needs Clarification) Start: 02-11-2024 End: 02-13-2024 MC Get Medical Advice Daisy De Leon DO Work Phone: Neurology Comment on above: Problem getting a pr escription refilled Start: 02-10-2024 End: 02-11-2024 Telephone encounter Daisy De Leon DO Work Phone: Neurology Comment on above: Medication Problem ( LACOSAMIDE - Clarification) Refill Request Start: 02-07-2024 End: 02-07-2024 Telephone encounter Daisy De Leon DO Work Phone: Neurology Comment on above: Forms ([facility]) Refill Request Start: 02-03-2024 End: 02-07-2024 ambulatory Daisy De Leon DO Work Phone: Neurology Comment on above: Medicine problem Start: 01-31-2024 End: 01-31-2024 Refill Meera Silva PA-C Work Phone: Neurology Comment on above: Refill Request Start: 01-09-2024 End: 01-09-2024 Patient encounter procedure Daisy De Leon DO Work Phone: Neurology Comment on above: Juvenile myoclonic e pilepsy, not intractable, with status epilepticus (HCC) (Primary Dx) Start: 01-09-2024 End: 01-09-2024 ambulatory DAISY DE LEON Facility:[facility] Start: 01-09-2024 End: 01-10-2024 Telephone encounter Daisy De Leon DO Work Phone: Neurology Comment on above: Orders Start: 12-23-2023 End: 12-23-2023 ambulatory Daisy De Leon DO Work Phone: Neurology Comment on above: Another seizure Start: 12-22-2023 End: 12-22-2023 Emergency department patient visit PHYSICIAN NISA [facility] Work Phone: Start: 12-19-2023 End: 12-19-2023 Refill Daisy De Leon DO Work Phone: Neurology Comment on above: Refill Request Medication Authoriza tion (Nayzilam) Start: 12-17-2023 End: 12-18-2023 Refill Daisy De Leon DO Work Phone: Neurology Comment on above: Refill Request Start: 12-16-2023 End: 12-16-2023 Bamboo flowsheet Jennifer CALLAWAY Work Phone: [facility] Start: 12-16-2023 End: 12-16-2023 Bamboo flowsheet Jennifer CALLAWAY Work Phone: [facility] Start: 12-16-2023 End: 12-16-2023 Office outpatient visit 15 minutes Jennifer CALLAWAY Work Phone: [facility] Comment on above: Follow-up encounter involving medication Start: 12-16-2023 End: 12-16-2023 ambulatory JENNIFER RENDON Not Available Start: 12-11-2023 End: 12-11-2023 ambulatory PHYSICIAN NO [facility] Work Phone: Start: 12-11-2023 End: 12-11-2023 Patient encounter procedure PHYSICIAN NO [facility] [address] Work Phone: Start: 11-19-2023 End: 11-19-2023 Telephone encounter Daisy De Leon DO Work Phone: Neurology Comment on above: Forms ([facility]) Start: 11-14-2023 End: 11-18-2023 Telephone encounter Daisy De Leon DO Work Phone: Neurology Comment on above: Forms Start: 11-13-2023 End: 11-13-2023 Patient encounter procedure Daisy De Leon DO Work Phone: Neurology Comment on above: Juvenile myoclonic e pilepsy, not intractable, with status epilepticus (HCC) Start: 11-13-2023 End: 11-13-2023 ambulatory DAISY DE LEON Facility:[facility] Start: 10-28-2023 End: 10-28-2023 ambulatory JONATHAN ENAMORADOO Not Available Start: 10-28-2023 End: 10-28-2023 Patient encounter procedure Jonathan Clara DO Work Phone: [facility] Start: 10-28-2023 End: 10-28-2023 Periodic preventive med est patient 18-39 yrs Jonathan Clara DO Work Phone: [facility] Comment on above: Well woman exam with routine gynecological exam; Insulin resistance; Screen for STD (sexually transmitted disease) Start: 10-28-2023 End: 10-28-2023 Bamboo flowsheet Jonathan Clara DO Work Phone: [facility] Start: 10-28-2023 End: 11-01-2023 Clinisync Result Encounter Jonathan Clara DO Work Phone: [facility] Unsolicited Start: 10-28-2023 End: 11-01-2023 Clinisync Result Encounter Jonathan Elizabeth DO Work Phone: [facility] Unsolicited Start: 10-28-2023 End: 10-30-2023 External Result Encounter Jonathan Elizabeth DO Work Phone: [facility] Unsolicited Start: 09-16-2023 Telephone encounter Carla Chowdary MD Work Phone: Neurology Comment on above: Medication Authoriza tion (Lacosamide) Start: 09-12-2023 Refill Carla kinney MD Work Phone: Neurology Comment on above: Refill Request Start: 09-09-2023 Telephone encounter Carla Chowdary MD Work Phone: Neurology Comment on above: Seizures Start: 08-13-2023 End: 08-14-2023 ambulatory CARLA CHOWDARY Facility:[facility] Start: 08-13-2023 End: 08-13-2023 Patient encounter procedure Carla Chowdary MD Work Phone: Neurology Comment on above: Juvenile myoclonic e pilepsy, not intractable, with status epilepticus (HCC) Start: 06-14-2023 End: 06-14-2023 Departed Referred BEULAH Gbison Work Phone: [facility] [place] Work Phone: Start: 06-14-2023 End: 06-14-2023 ambulatory [facility] Work Phone: Start: 06-14-2023 End: 06-14-2023 Patient encounter procedure [facility] [place] Work Phone: Start: 04-29-2023 End: 04-29-2023 ambulatory THAO PAGAN Facility:[facility] Start: 04-29-2023 End: 04-29-2023 Patient encounter procedure Thao Pagan MD Work Phone: Neurology Comment on above: Frequent nocturnal a wakening (Primary Dx); Juvenile myoclonic epilepsy, not intractable, with status epilepticus (HCC); Insufficient sleep syndrome; Malaise and fatigue; Insomnia, unspecified type; Poor sleep hygiene Start: 04-28-2023 Refill Dago miranda MD Work Phone: Neurology Comment on above: Refill Request Start: 04-21-2023 End: 04-21-2023 ambulatory CARLA CHOWDARY Facility:[facility] Start: 04-15-2023 Chart abstracting [facility] Work Phone: Neurology Comment on above: PSG Check In Start: 03-26-2023 Refill Carla kinney MD Work Phone: Neurology Comment on above: Refill Request Start: 02-22-2023 End: 02-23-2023 ambulatory ASHLEY DONATO Not Available Start: 02-05-2023 Telephone encounter Carla Chowdary MD Work Phone: Neurology Comment on above: Results (Vitamin D) Start: 02-01-2023 End: 02-02-2023 Orders Only Carla Chowdary MD Work Phone: [facility] Comment on above: Juvenile myoclonic e pilepsy, not intractable, with status epilepticus (HCC) (Primary Dx); MECCA (obstructive sleep apnea) Juvenile myoclonic e pilepsy, not intractable, with status epilepticus (HCC) (Primary Dx); Vitamin D deficiency Start: 01-25-2023 End: 01-25-2023 ambulatory ASHLEY MELENDEZDelonESTRELLA Not Available Start: 01-21-2023 Telephone encounter Carla Chowdary MD Work Phone: Neurology Comment on above: Seizures Start: 11-27-2022 Refill Carla kinney MD Work Phone: Neurology Comment on above: Refill Request Start: 12-13-2021 Refill Carla kinney MD Work Phone: Neurology Comment on above: Refill Request Start: 10-27-2021 Refill Carla kinney MD Work Phone: Neurology Comment on above: Refill Request Start: 06-07-2021 Telephone encounter Carla Chowdary MD Work Phone: Neurology Comment on above: Medication Authoriza tion (Nayzilam) Start: 06-05-2021 Refill Carla kinney MD Work Phone: Neurology Comment on above: Refill Request Start: 06-01-2021 Refill Carla kinney MD Work Phone: Neurology Comment on above: Refill Request Start: 05-30-2021 Refill Carla kinney MD Work Phone: Neurology Comment on above: Refill Request Procedures Date Procedure Procedure Detail Performing Clinician Start: 09-16-2024 HIV AB/P24 AG WITH REFLEX Andreas Samson CHEMISTRY SPECIALIST Work Phone: Start: 09-16-2024 RECURRENT VAGINITIS (HTRX) Andreas Samson CHEMISTRY SPECIALIST Work Phone: Start: 08-26-2024 RECURRENT VAGINITIS (HTRX) Andreas Samson CHEMISTRY SPECIALIST Work Phone: Start: 04-20-2024 Complete blood count with white cell differential, automated Nory Aguilar CHEMISTRY SPECIALIST Work Phone: Start: 03-16-2024 Viral nucleic acid assay PHYSICIAN NO FAMILY Start: 03-04-2024 CT of head without contrast PHYSICIAN NO FAMILY Start: 10-28-2023 URETHRITIS/DISCHARGE PLUS VAGINITIS (HTRX) Jonathan Clara DO Work Phone: Start: 10-28-2023 IGP,APTIMA HPV,AGE GDLN Jonathan Clara DO Work Phone: Start: 06-04-2021 Adult depression screening assessment Carla Chowdary MD Work Phone: Start: 09-27-2020 Adult depression screening assessment Carla Chowdary MD Work Phone: Plan of Treatment Date Care Activity Detail Author Start: 05-26-2025 Urine microalbumin profile DTaP,Tdap,Td Vaccine (7 - Td or Tdap) [facility] Start: 11-03-2024 End: 11-03-2024 Patient encounter procedure [facility] Start: 10-19-[address] [facility] Start: 10-13-2024 End: 10-13-2024 Patient encounter procedure 10/13/2024 8:30 AM EDT Office Visit JEFERSON [place] [address] [place] [id number] Jennifer Rendon PA [address] [place] [address] J[facility] Start: 10-06-2024 End: 10-06-2025 HSV 1 antibody, IgG HSV 1 antibody, IgG Lab Routine Vaginal lesion Expected: 10/06/2024 (Approximate), Expires: 10/06/2025 [facility] Comment on above: Expected: 10/06/2024 (Approximate), Expires: 10/06/2025 Start: 10-06-2024 End: 10-06-2025 HSV 2 antibody, IgG HSV 2 antibody, IgG Lab Routine Vaginal lesion Expected: 10/06/2024 (Approximate), Expires: 10/06/2025 [facility] Comment on above: Expected: 10/06/2024 (Approximate), Expires: 10/06/2025 Start: 09-07-2024 End: 09-07-2024 Patient encounter procedure 09/07/2024 2:30 PM EDT Office Visit ANDRE PERSAUD [address] [place] [phone] Gabi Mcclure DO [address] [place], [place] [id number] [facility] [place] Start: 06-18-2024 End: 06-18-2024 Patient encounter procedure 06/18/2024 3:30 PM EDT Office Visit ANDRE PERSAUD [address] [place] [phone] Gabi Mcclure DO [address] [place], [place] [address] [address] Arrived ANDRE PERSAUD Comment on above: Arrived Start: 05-25-2024 End: 05-25-2024 Patient encounter procedure 05/25/2024 11:30 AM EDT Office Visit ANDRE PERSAUD [address] [phone] Gabi Mcclure DO [address] [address] ANDRE PERSAUD Start: 05-20-2024 End: 05-20-2024 Patient encounter procedure 05/20/2024 2:15 PM EDT Office Visit ANDRE PERSAUD [address] [place] [address] Gabi Mcclure DO [address] [address] ANDRE PERSAUD Start: 04-15-2024 End: 04-15-2024 Patient encounter procedure 04/15/2024 10:30 AM EST Office Visit Neurology [address] [place] [address] Juvenile myoclonic epilepsy, not intractable, 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] Neurology Comment on above: Juvenile myoclonic e pilepsy, not intractable, 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 Comment on above: Expected: 04/13/2024 (Approximate), Expires: 04/13/2025 Start: 04-13-2024 End: 04-13-2025 ECG 12 lead ECG 12 lead ECG Routine Juvenile myoclonic epilepsy, not intractable, with status epilepticus (CMS/HCC) Tachycardia Expected: 04/13/2024 (Approximate), Expires: 04/13/2025 [facility] Work Phone: Comment on above: Expected: 04/13/2024 (Approximate), Expires: 04/13/2025 Start: 04-13-2024 End: 04-13-2025 Lipid 1996 panel - Serum or Plasma Lipid panel Lab Routine Wellness examination Screening for lipid disorders Expected: 04/13/2024 (Approximate), Expires: 04/13/2025 [facility] Comment on above: Expected: 04/13/2024 (Approximate), Expires: 04/13/2025 Start: 04-13-2024 End: 04-13-2025 Thyrotropin [Units/volume] in Serum or Plasma TSH Lab Routine Wellness examination Screening for thyroid disorder Expected: 04/13/2024 (Approximate), Expires: 04/13/2025 [facility] Comment on above: Expected: 04/13/2024 (Approximate), Expires: 04/13/2025 Start: 04-13-2024 End: 04-13-2025 Thyroxine (T4) free [Mass/volume] in Serum or Plasma T4, free Lab Routine Wellness examination Screening for thyroid disorder Expected: 04/13/2024 (Approximate), Expires: 04/13/2025 [facility] Comment on above: Expected: 04/13/2024 (Approximate), Expires: 04/13/2025 Start: 02-06-2024 End: 05-07-2024 Zonisamide [Mass/volume] in Serum or Plasma ZONISAMIDE Lab Routine Juvenile myoclonic epilepsy, not intractable, with status epilepticus (HCC) Expected: 02/06/2024, Expires: 05/07/2024 [facility] Work Phone: Comment on above: Expected: 02/06/2024 , Expires: 05/07/2024 Start: 01-09-2024 End: 01-09-2024 Patient encounter procedure 01/09/2024 2:40 PM EST Office Visit Neurology [address] [place] [address] Daisy De Leon DO [address] [place], [place] [phone] f/u Neurology Comment on above: f/u Start: 01-09-2024 End: 04-09-2024 CBC panel - Blood by Automated count COMPLETE BLOOD COUNT Lab Routine Juvenile myoclonic epilepsy, not intractable, with status epilepticus (HCC) Expected: 01/09/2024, Expires: 04/09/2024 [facility] Work Phone: Comment on above: Expected: 01/09/2024 , Expires: 04/09/2024 Start: 01-09-2024 End: 04-09-2024 Comprehensive metabolic 2000 panel - Serum or Plasma COMPREHENSIVE METABOLIC PANEL Lab Routine Juvenile myoclonic epilepsy, not intractable, with status epilepticus (HCC) Expected: 01/09/2024, Expires: 04/09/2024 [facility] Comment on above: Expected: 01/09/2024 , Expires: 04/09/2024 Start: 01-09-2024 End: 04-09-2024 lamoTRIgine [Mass/volume] in Serum or Plasma LAMOTRIGINE Lab Routine Juvenile myoclonic epilepsy, not intractable, with status epilepticus (HCC) Expected: 01/09/2024, Expires: 04/09/2024 [facility] Comment on above: Expected: 01/09/2024 , Expires: 04/09/2024 Start: 12-16-2023 End: 12-16-2023 Patient encounter procedure 12/16/2023 9:30 AM EDT Office Visit [facility] [address] [place] [address] Jennifer Rendon PA [address] [place] [address] Arrived [facility] Comment on above: Arrived Start: 11-13-2023 End: 11-13-2023 Patient encounter procedure 11/13/2023 3:20 PM EDT Office Visit Neurology [address] [phone] Daisy De Leon DO [address] [place], [place] [phone] transition of care Neurology Comment on above: transition of care Start: 10-23-2023 Screening for malign ant neoplasm of cervix Cervical Cancer Screening [facility] Start: 10-20-2023 Covid-19 Vaccine ( season) Covid-19 Vaccine () [facility] Start: 10-20-2023 Influenza vaccination Influenza Vacc ine (#1) [facility] Start: 06-14-2023 Bacteria identified in Urine by Culture [facility] Start: 02-01-2023 End: 05-03-2023 25-hydroxyvitamin D3 [Mass/volume] in Serum or Plasma [facility] Work Phone: Comment on above: Expected: 02/01/2023 , Expires: 05/03/2023 Start: 02-01-2023 End: 05-03-2023 LACOSAMIDE [facility] Work Phone: Comment on above: Expected: 02/01/2023 , Expires: 05/03/2023 Start: 10-19-2022 Covid-19 Vaccine ( season) Covid-19 Vaccine ( season) [facility] Start: 10-19-2022 Covid-19 Vaccine ( season) Covid-19 Vaccine ( season) [facility] Start: 10-19-2022 Influenza vaccination Influenza Vacc ine (#1) [facility] Start: 06-04-2022 Adult depression screening assessment DEPRESSION SCREENING [facility] Start: [address] [facility] Start: 10-19-2021 Influenza vaccination C [facility] Start: 09-27-2021 Adult depression screening assessment DEPRESSION SCREENING [facility] Start: 05-25-2021 COVID-19 VACCINE (2 - Pfizer 3-dose series) COVID-19 VACCINE (2 - Pfizer 3-dose series) [facility] Start: 05-25-2021 COVID-19 VACCINE (2 - Pfizer series) COVID-19 VACCINE (2 - Pfizer series) [facility] Start: 2020 Anxiety Screening Anxiety Screening [facility] Start: 2020 CHLAMYDIA SCREENING (18-24) CHLAMYDIA SCREENING (18-24) [facility] Start: 2020 GC (GONORRHEA) SCREENING (18-24) GC (GONORRHEA) SCREENING (18-24) [facility] Start: 2020 HEPATITIS C SCREENING HEPATITIS C [facility] Start: 2020 Hepatitis C screening Hepatitis C [facility] Start: 2020 HIV SCREENING HIV SCREENING [facility] Start: 2020 HIV screening HIV Screening [facility] Start: 2020 Screening for Chlamy van trachomatis Chlamydia Screening () [facility] Start: 2018 Meningococcal B Vacc ine (1 of 2 - Standard) Meningococcal B Vaccine (1 of 2 - Standard) [facility] Start: 2018 Meningococcal B Vaccine: Consider Based On Risk (1 of 2 - Patient Seeks Protection) Meningococcal B Vaccine: Consider Based On Risk (1 of 2 - Patient Seeks Protection) [facility] Start: 2018 MENINGOCOCCAL CONJUG ATE (1 - 2-dose series) MENINGOCOCCAL CONJUGATE (1 - 2-dose series) [facility] Start: 2017 HPV Vaccine (1 - 3-d ose series) HPV Vaccine (1 - 3-dose series) [facility] Start: 2016 PEDS TO ADULT TRANSITION ANNUAL ASSESSMENT PEDS TO ADULT TRANSITION ANNUAL ASSESSMENT [facility] Start: 2014 PEDS TO ADULT TRANSITION INITIAL DISCUSSION PEDS TO ADULT TRANSITION INITIAL DISCUSSION [facility] Start: 2013 HPV VACCINE (1 - 2-d ose series) HPV VACCINE (1 - 2-dose series) [facility] Start: 2012 MENINGOCOCCAL B: Consider based on risk (1 of 2 - Risk Bexsero 2-dose series) MENINGOCOCCAL B: Consider based on risk (1 of 2 - Risk Bexsero 2-dose series) [facility] Start: 10-23-2011 HPV Vaccine (1 - 2-d ose series) HPV Vaccine (1 - 2-dose series) [facility] Start: 2009 Urine microalbumin profile DTAP,TDAP,TD (1 - Tdap) [facility] Start: 10-23-2007 COVID-19 VACCINE (1) COVID-19 VACCIN E (1) [facility] Start: 2002 HEPATITIS B (1 of 3 - 3-dose series) HEPATITIS B (1 of 3 - 3-dose series) [facility] Start: 2002 Hepatitis B Vaccine (1 of 3 - 3-dose series) Hepatitis B Vaccine (1 of 3 - 3-dose series) [facility] CHLAMYDIA TRACHOMATI S (GENITO/STI) CHLAMYDIA TRACHOMATIS (GENITO/STI) Lab Routine Screen for STD (sexually transmitted disease) Ordered: 10/28/2023 [facility] Comment on above: Ordered: 10/28/2023 CHLAMYDIA TRACHOMATI S (GENITO/STI) CHLAMYDIA TRACHOMATIS (GENITO/STI) Lab Routine STD exposure Ordered: 09/16/2024 [facility] Comment on above: Ordered: 09/16/2024 CHLAMYDIA TRACHOMATI S (GENITO/STI) CHLAMYDIA TRACHOMATIS (GENITO/STI) Lab Routine STD exposure Ordered: 10/06/2024 [facility] Comment on above: Ordered: 10/06/2024 Comprehensive metabo lic 2000 panel - Serum or Plasma Comprehensive metabolic panel Lab Routine 04/20/2024 12:05 PM EST [facility] Work Phone: Cytology Cervical or vaginal smear or scraping study Pap Smear Pathology and Cytology Routine Well woman exam with routine gynecological exam Ordered: 10/28/2023 [facility] Work Phone: Comment on above: Ordered: 10/28/2023 End: 01-08-2025 EPIL EEG LONG EPIL EEG LONG NEUROLOGY Routine Juvenile myoclonic epilepsy, not intractable, with status epilepticus (HCC) 1 Occurrences starting 01/09/2024 until 01/08/2025 [facility] Work Phone: Comment on above: 1 Occurrences starti ng 01/09/2024 until 01/08/2025 Hepatitis B virus surface Ag [Presence] in Serum or Plasma by Immunoassay Hepatitis B surface antigen Lab Routine Sexually transmitted disease exposure Ordered: 09/16/2024 [facility] Comment on above: Ordered: 09/16/2024 HIV-1/HIV-2 antigen/antibody combination immunoassay HIV-1 and HIV-2 antibodies Lab Routine Sexually transmitted disease exposure Ordered: 09/16/2024 [facility] Work Phone: Comment on above: Ordered: 09/16/2024 HSV nonspecific, IgG HSV nonspec ific, IgG Lab Routine STD exposure Sexually transmitted disease exposure Ordered: 09/16/2024 [facility] Comment on above: Ordered: 09/16/2024 HSV nonspecific, IgM HSV nonspec ific, IgM Lab Routine STD exposure Sexually transmitted disease exposure Ordered: 09/16/2024 [facility] Comment on above: Ordered: 09/16/2024 Lipid 1996 panel - Serum or Plasma Lipid panel Lab Routine 04/20/2024 12:05 PM EST [facility] Neisseria gonorrhoea e DNA [Presence] in Unspecified specimen by LINK with probe detection Neisseria gonorrhea DNA probe, direct Lab Routine Screen for STD (sexually transmitted disease) Ordered: 10/28/2023 [facility] Comment on above: Ordered: 10/28/2023 Neisseria gonorrhoea e DNA [Presence] in Unspecified specimen by LINK with probe detection Neisseria gonorrhea DNA probe, direct Lab Routine STD exposure Ordered: 09/16/2024 [facility] Comment on above: Ordered: 09/16/2024 Neisseria gonorrhoea e DNA [Presence] in Unspecified specimen by LINK with probe detection Neisseria gonorrhea DNA probe, direct Lab Routine STD exposure Ordered: 10/06/2024 [facility] Comment on above: Ordered: 10/06/2024 Patient Education [facility] Work Phone: Patient referral [facility] Work Phone: End: 03-02-2024 PSG WITH EEG (DOUBLE STUDY) PSG WITH EEG (DOUBLE STUDY) Procedures Routine Juvenile myoclonic epilepsy, not intractable, with status epilepticus (HCC) MECCA (obstructive sleep apnea) 1 Occurrences starting 02/01/2023 until 03/02/2024 [facility] Work Phone: Comment on above: 1 Occurrences starti ng 02/01/2023 until 03/02/2024 SURESWAB(R) ADVANCED VAGINITIS PLUS, TMA SURESWAB(R) ADVANCED VAGINITIS PLUS, TMA Pathology and Cytology Routine Screen for STD (sexually transmitted disease) Ordered: 10/28/2023 [facility] Comment on above: Ordered: 10/28/2023 SURESWAB(R) ADVANCED VAGINITIS PLUS, TMA SURESWAB(R) ADVANCED VAGINITIS PLUS, TMA Pathology and Cytology Routine STD exposure Ordered: 09/16/2024 [facility] Work Phone: Comment on above: Ordered: 09/16/2024 SURESWAB(R) ADVANCED VAGINITIS PLUS, TMA SURESWAB(R) ADVANCED VAGINITIS PLUS, TMA Pathology and Cytology Routine Vaginal discharge Ordered: 10/06/2024 [facility] Work Phone: Comment on above: Ordered: 10/06/2024 [facility] Immunization Date Immunization Notes Care Provider [facility] 12-11-2023 influenza virus vacc ine, unspecified formulation Yanet Brito PA-C Work Phone: [facility] 12-10-2022 influenza, injectabl e, quadrivalent, preservative free Nory Aguilar NP Work Phone: [facility] 12-10-2022 influenza virus vacc ine, unspecified formulation Carla Chowdary MD Work Phone: [facility] 07-20-2022 hepatitis B vaccine, adult dosage Nory Aguilar NP Work Phone: [facility] 06-19-2022 hepatitis B vaccine, pediatric or pediatric/adolescent dosage Nory Aguilar CHEMISTRY SPECIALIST Work Phone: [facility] 09-30-2020 meningococcal oligosaccharide (groups A, C, Y and W-135) diphtheria toxoid conjugate vaccine (MCV4O) Nory Aguilar CHEMISTRY SPECIALIST Work Phone: [facility] 06-14-2015 meningococcal ACWY vaccine, unspecified formulation Nory Aguilar NP Work Phone: [facility] 05-27-2015 tetanus toxoid, redu saroj diphtheria toxoid, and acellular pertussis vaccine, adsorbed Nory Brandon CHEMISTRY SPECIALIST Work Phone: [facility] 06-10-2007 diphtheria, tetanus toxoids and acellular pertussis vaccine Nory Brandon CHEMISTRY SPECIALIST Work Phone: [facility] 06-10-2007 measles, mumps and r ubella virus vaccine Nory Brandon CHEMISTRY SPECIALIST Work Phone: [facility] 06-10-2007 poliovirus vaccine, inactivated Nory Brandon CHEMISTRY SPECIALIST Work Phone: [facility] 01-24-2004 diphtheria, tetanus toxoids and acellular pertussis vaccine Nory Brandon CHEMISTRY SPECIALIST Work Phone: [facility] 11-18-2003 haemophilus influenz ae type b vaccine, PRP-T conjugate Norylizy Aguilar CHEMISTRY SPECIALIST Work Phone: [facility] 11-18-2003 measles, mumps and r ubella virus vaccine Nory Brandon CHEMISTRY SPECIALIST Work Phone: [facility] 11-18-2003 pneumococcal conjuga te vaccine, 7 valent Nory Aguilar CHEMISTRY SPECIALIST Work Phone: [facility] 06-11-2003 diphtheria, tetanus toxoids and acellular pertussis vaccine, unspecified formulation Norylizy Aguilar CHEMISTRY SPECIALIST Work Phone: [facility] 06-11-2003 haemophilus influenz ae type b conjugate and Hepatitis B vaccine Nory Aguilar CHEMISTRY SPECIALIST Work Phone: [facility] 06-11-2003 poliovirus vaccine, inactivated Norylizy Aguilar CHEMISTRY SPECIALIST Work Phone: [facility] 03-19-2003 diphtheria, tetanus toxoids and acellular pertussis vaccine, unspecified formulation Nory Aguilar CHEMISTRY SPECIALIST Work Phone: [facility] 03-19-2003 haemophilus influenz ae type b vaccine, conjugate unspecified formulation Nory Aguilar CHEMISTRY SPECIALIST Work Phone: [facility] 03-19-2003 poliovirus vaccine, inactivated Nory Aguilar CHEMISTRY SPECIALIST Work Phone: [facility] 2002 DTaP-hepatitis B and poliovirus vaccine Nory Aguilar CHEMISTRY SPECIALIST Work Phone: [facility] 2002 haemophilus influenz ae type b vaccine, PRP-T conjugate Nory Aguilar CHEMISTRY SPECIALIST Work Phone: [facility] 2002 pneumococcal conjuga te vaccine, 7 valent Nory Aguilar CHEMISTRY SPECIALIST Work Phone: [facility] 2002 hepatitis B vaccine, pediatric or pediatric/adolescent dosage Nory Aguilar NP Work Phone: [facility] Payers Date Payer Category Payer Self-pay 2021 [facility] [employer] [facility] [id number] 2021 Unknown [id number] 2020 Private Health Insurance [facility] [id number] 2020-Present [phone] [address] [place] [address] PPO [id number] 2019 Unknown [id number] 2019 Private Health Insurance [id number] 2019 Unknown [id number] 2019 Private Health Insurance [id number] 2002 Unknown [id number] [id number] .1259 2002 Unknown [id number] 2.16.840.1.892333.3.579.2 .1259 2002 Unknown [id number] 2.16.840.1.837547.3.579.2 .196 2002 Unknown [id number] 2.16.840.1.754652.3.579.2 .196 2002 Unknown [id number] 2.16.840.1.458185.3.579.2 .1259 2002 Unknown [id number] 2.16.840.1.685761.3.579.2 .1259 2002 Unknown [id number] 2.16.840.1.566225.3.579.2 .1259 2002 Unknown [id number] 2.16.840.1.725137.3.579.2 .9 2002 Unknown [id number] 2.16.840.1.186888.3.579.2 .1259 2002 Unknown [id number] 2.16.840.1.190769.3.579.2 .1259 Unknown [id number] 2.16.840.1.934069.3.579.2 .531 Unknown [id number] 2.16.840.1.923061.3.579.2 .531 Unknown [id number] 2.16.840.1.083709.3.579.2 .531 Unknown [id number] 2.16.840.1.643650.3.579.2 .531 Unknown [id number] 2.16.840.1.914469.3.579.2 .531 Unknown [id number] [id number] .531 Social History Date Type Detail Facility Tobacco smoking status MTIS Tobacco smoking consumption unknown [facility] Start: 2002 Sex Assigned At Female C [facility] Start: 06-06-2021 End: 01-25-2023 Tobacco smoking status MTIS Never smoked tobacco [facility] Start: 06-06-2021 End: 01-25-2023 Tobacco use and exposure Smokeless tobacco non-user [facility] Start: 05-27-2021 End: 06-06-2021 Exposure to SARS-CoV-2 (event) Not sure [facility] Start: 06-06-2021 End: 04-13-2024 History of [address] function [facility] Start: 06-06-2021 End: 04-13-[address] [facility] Adult Depression Screening Assessment 0 [facility] Start: 03-10-2021 Gender identity Identifies as female gender (finding) [facility] Start: 03-10-2021 Sexual orientation Heterosexual (fin ding) [facility] Start: 10-28-2023 End: 06-18-2024 Alcoholic beverage intake Current drinker of alcohol (finding) [facility] Start: 01-25-2023 Alcohol Comment caffeine intak e: 2 sodas daily [facility] Start: 2002 Sex assigned at Not on file [facility] Start: 03-04-2024 End: 05-19-2024 Sex Female (finding) [facility] How often to you hav e a drink containing alcohol? 2-4 times a month [facility] How many standard drinks containing alcohol do you have on a typical day? 3 or 4 [facility] How often do you hav e 6 or more drinks on 1 occasion? Monthly [facility] NEGATED: Highlighted rowStart: NINF History of tobacco use Passive smoker [facility] NEGATED: Highlighted row [facility] Clinical Notes 05-30-2021 to 10-06-2024 CESIA Esquivel - 10/06/2024 9:50 AM Layne Samson NP - 09/16/2024 9:50 AM Layne Samson NP - 08/26/2024 1:50 PM EDTTelephone Encounter - Sammi Escalante APRN.CNP - 08/18/2024 1:17 PM EDT Note Date & Type Note Facility 10-06-2024 History of Present illness Narrative Images from the original note were not included. Reason for Appointment: Patient ID: Quentin Bird is a 23 y.o. female who presents for STI Screening Patient presents today for Acute Visit. MEDICATIONS Current Outpatient Medications Medication Instructions azithromycin (Zithromax) 500 MG tablet Day 1: Take 2 tablets PO onetime dose; Day 2,3,4: Take 1 tablet daily clobetasol (Temovate) 0.05 % cream 1 application , Topical, Daily cyanocobalamin (VITAMIN B-12) 1,000 mcg, Daily folic acid (Folvite) 1 MG tablet lamoTRIgine (LAMICTAL) 100 mg, 2 times daily levETIRAcetam (KEPPRA) 500 mg, Oral, 2 times daily metFORMIN XR (GLUCOPHAGE-XR) 1,000 mg, Oral, Daily with evening meal, Do not crush, chew, or split. Midazolam (Nayzilam) 5 MG/0.1ML solution Administer into affected nostril(s) Multiple Vitamins-Minerals (MULTIVITAMIN GUMMIES WOMENS PO) Take by mouth norethindrone-ethinyl estradiol-iron (Lo Loestrin Fe) 1 MG-10 MCG / 10 MCG tablet 1 tablet, Oral, Daily, Take 1 tablet by mouth daily valACYclovir (VALTREX) 1,000 mg, Oral, 2 times daily venlafaxine XR (EFFEXOR XR) 37.5 mg, Oral, Daily, Do not crush or chew. zonisamide (ZONEGRAN) 300 mg, Daily ALLERGIES No Known Allergies PROBLEMS Active Ambulatory Problems Diagnosis Date Noted Recurrent major depression in partial remission 09/28/2020 PCOS (polycystic ovarian syndrome) 04/10/2024 Juvenile myoclonic epilepsy, not intractable, with status epilepticus (HCC) 09/28/2020 Anxiety and depression 03/16/2020 Resolved Ambulatory Problems Diagnosis Date Noted Concussion with loss of consciousness of 30 minutes or less 10/30/2018 Past Medical History: Diagnosis Date Abnormal weight gain Anxiety Depression Epilepsy (HCC) History of suicide attempt Mood changes Seizures (HCC) Urinary tract infection HISTORY PAST MEDICAL HISTORY SOCIAL HISTORY Past Medical History: Diagnosis Date Abnormal weight gain Anxiety Concussion with loss of consciousness of 30 minutes or less 10/30/2018 Depression Epilepsy (HCC) History of suicide attempt Mood changes PCOS (polycystic ovarian syndrome) Seizures (HCC) Urinary tract infection Social History Tobacco Use Smoking status: Never Smokeless tobacco: Never Vaping Use Vaping status: Never Used Substance Use Topics Alcohol use: Yes Comment: caffeine intake: 2 sodas daily Drug use: Never FAMILY HISTORY Family History Problem Relation Name Age of Onset Valvular heart disease Mother No Known Problems Father Valvular heart disease Sister Cirrhosis Mother's Sister Cirrhosis Maternal Grandmother Valvular heart disease Maternal Grandmother Heart attack Maternal Grandmother Dementia Paternal Grandmother Cancer Paternal Grandfather Ashutosh Marge Lung cancer Paternal Grandfather Ashutosh Bird SURGICAL HISTORY No past surgical history on file. REVIEW OF SYSTEMS Review of Systems: Review of Systems Constitutional: Negative. HENT: Negative. Eyes: Negative. Respiratory: Negative. Cardiovascular: Negative. Gastrointestinal: Negative. Genitourinary: Negative. Musculoskeletal: Negative. Skin: Negative. Neurological: Negative. All other systems reviewed and are negative. Hematological: Negative. Endocrine: Negative. Allergic/Immunologic: Negative. OBJECTIVE Objective: Physical Exam Genitourinary: Genitourinary Comments: Lesions prob hsv, cultures obtained Left Labia: tenderness and lesions. Vitals: Estimated body mass index is 26.79 kg/m as calculated from the following: Height as of 04/13/24: 5' 1 . Weight as of this encounter: 141 lb 12.8 oz. BP: 104/64 No LMP recorded. ASSESSMENT & PLAN ICD-10-CM 1. Vaginal discharge N89.8 SURESWAB(R) ADVANCED VAGINITIS PLUS, TMA 2. STD exposure Z20.2 CHLAMYDIA TRACHOMATIS (GENITO/STI) Neisseria gonorrhea DNA probe, direct 3. Vaginal lesion N89.8 HSV 1 antibody, IgG HSV 2 antibody, IgG valACYclovir (Valtrex) 1 g tablet clobetasol (Temovate) 0.05 % cream HSV 1 antibody, IgG HSV 2 antibody, IgG Patient seen and previously treated for chronic bv. Cultures were obtained and blood work ordered. HSV blood work negative at the time. Today pt presents with similar lesions she believes may be her psoriasis. Lesions appear hsv to myself and are painful. Cultures obtained and pt started on valtex and given clobetasole Pt to follow up in week to 10 days, if no improvement we will biopsy area Documented by CESIA Esquivel on behalf of: CESIA Esquivel documented in this encounter [facility] 09-16-2024 History of Present illness Narrative Reason for Appointment: Patient ID: Quentin Bird is a 23 y.o. female who presents for STI Screening Patient presents today for STD Check. MEDICATIONS Current Outpatient Medications Medication Instructions cyanocobalamin (VITAMIN B-12) 1,000 mcg, Daily folic acid (Folvite) 1 MG tablet lamoTRIgine (LAMICTAL) 100 mg, 2 times daily levETIRAcetam (KEPPRA) 500 mg, Oral, 2 times daily metFORMIN XR (GLUCOPHAGE-XR) 1,000 mg, Oral, Daily with evening meal, Do not crush, chew, or split. Midazolam (Nayzilam) 5 MG/0.1ML solution Administer into affected nostril(s) Multiple Vitamins-Minerals (MULTIVITAMIN GUMMIES WOMENS PO) Take by mouth norethindrone-ethinyl estradiol-iron (Lo Loestrin Fe) 1 MG-10 MCG / 10 MCG tablet 1 tablet, Oral, Daily, Take 1 tablet by mouth daily venlafaxine XR (EFFEXOR XR) 37.5 mg, Oral, Daily, Do not crush or chew. zonisamide (ZONEGRAN) 300 mg, Daily ALLERGIES No Known Allergies PROBLEMS Active Ambulatory Problems Diagnosis Date Noted Recurrent major depression in partial remission 09/28/2020 PCOS (polycystic ovarian syndrome) 04/10/2024 Juvenile myoclonic epilepsy, not intractable, with status epilepticus (HCC) 09/28/2020 Anxiety and depression 03/16/2020 Resolved Ambulatory Problems Diagnosis Date Noted Concussion with loss of consciousness of 30 minutes or less 10/30/2018 Past Medical History: Diagnosis Date Abnormal weight gain Anxiety Depression Epilepsy (HCC) History of suicide attempt Mood changes Seizures (HCC) Urinary tract infection HISTORY PAST MEDICAL HISTORY SOCIAL HISTORY Past Medical History: Diagnosis Date Abnormal weight gain Anxiety Concussion with loss of consciousness of 30 minutes or less 10/30/2018 Depression Epilepsy (HCC) History of suicide attempt Mood changes PCOS (polycystic ovarian syndrome) Seizures (HCC) Urinary tract infection Social History Tobacco Use Smoking status: Never Smokeless tobacco: Never Vaping Use Vaping status: Never Used Substance Use Topics Alcohol use: Yes Comment: caffeine intake: 2 sodas daily Drug use: Never FAMILY HISTORY Family History Problem Relation Name Age of Onset Valvular heart disease Mother No Known Problems Father Valvular heart disease Sister Cirrhosis Mother's Sister Cirrhosis Maternal Grandmother Valvular heart disease Maternal Grandmother Heart attack Maternal Grandmother Dementia Paternal Grandmother Cancer Paternal Grandfather Ashutosh Marge Lung cancer Paternal Grandfather Ashutosh Marge SURGICAL HISTORY No past surgical history on file. REVIEW OF SYSTEMS Review of Systems: Review of Systems Constitutional: Negative. HENT: Negative. Eyes: Negative. Respiratory: Negative. Cardiovascular: Negative. Gastrointestinal: Negative. Genitourinary: Positive for vaginal discharge. Musculoskeletal: Negative. Skin: Negative. Neurological: Negative. All other systems reviewed and are negative. Hematological: Negative. Endocrine: Negative. Allergic/Immunologic: Negative. OBJECTIVE Objective: Physical Exam Constitutional: Appearance: Normal appearance. She is well-developed. Cardiovascular: Rate and Rhythm: Normal rate and regular rhythm. Pulmonary: Effort: Pulmonary effort is normal. Breath sounds: Normal breath sounds. Abdominal: General: Bowel sounds are normal. There is no distension. Palpations: Abdomen is soft. Tenderness: There is no abdominal tenderness. There is no guarding or rebound. Musculoskeletal: General: No swelling. Normal range of motion. Right lower leg: No edema. Left lower leg: No edema. Neurological: Mental Status: She is alert and oriented to person, place, and time. Skin: General: Skin is warm and dry. Psychiatric: Mood and Affect: Mood normal. Behavior: Behavior normal. Vitals and nursing note reviewed. Exam conducted with a insurance rater present. Vitals: Estimated body mass index is 27.63 kg/m as calculated from the following: Height as of 04/13/24: 5' 1 . Weight as of this encounter: 146 lb 4 oz. BP: 106/72 No LMP recorded. ASSESSMENT & PLAN ICD-10-CM 1. STD exposure Z20.2 SURESWAB(R) ADVANCED VAGINITIS PLUS, TMA CHLAMYDIA TRACHOMATIS (GENITO/STI) Neisseria gonorrhea DNA probe, direct HSV nonspecific, IgG HSV nonspecific, IgM 2. Sexually transmitted disease exposure Z20.2 HIV-1 and HIV-2 antibodies Hepatitis B surface antigen HSV nonspecific, IgG HSV nonspecific, IgM Patient presents today for concerns related to STI exposure and reports continued vaginal discharge and denies any pelvic or abdominal pain. She desires further testing to include blood work and HSV testing. She reports that she did have RPR testing recently and does not want this to be included in today's testing. Patient also reports continued recurrent vaginal discharge consistent with BV reporting p.o. Flagyl did not help with symptoms. Will recommend treatment with Boric Acid as well. She declined Metrogel at this time. Documented by Andreas Samson NP on behalf of: Andreas Samson NP documented in this encounter [facility] 09-07-2024 Note Patient Education Ma terials Name: Quentin Bird Current Date: 09/07/2024 14:14:47 [place] : 2000 The following sheet(s) are the Patient Education Leaflets for Quentin Bird [facility] 08-26-2024 History of Present illness Narrative Reason for Appointment: Patient ID: Quentin Bird is a 23 y.o. female who presents for Menorrhagia and clotting Patient presents today for Acute Visit. MEDICATIONS Current Outpatient Medications Medication Instructions cyanocobalamin (VITAMIN B-12) 1,000 mcg, Daily folic acid (Folvite) 1 MG tablet lamoTRIgine (LAMICTAL) 100 mg, 2 times daily levETIRAcetam (KEPPRA) 500 mg, Oral, 2 times daily Magnesium Oxide -Mg Supplement (RA Magnesium) 500 MG capsule Take by mouth metFORMIN XR (GLUCOPHAGE-XR) 1,000 mg, Oral, Daily with evening meal, Do not crush, chew, or split. Midazolam (Nayzilam) 5 MG/0.1ML solution Administer into affected nostril(s) Multiple Vitamins-Minerals (MULTIVITAMIN GUMMIES WOMENS PO) Take by mouth venlafaxine XR (EFFEXOR XR) 37.5 mg, Oral, Daily, Do not crush or chew. zonisamide (ZONEGRAN) 300 mg, Daily ALLERGIES No Known Allergies PROBLEMS Active Ambulatory Problems Diagnosis Date Noted Recurrent major depression in partial remission 09/28/2020 PCOS (polycystic ovarian syndrome) 04/10/2024 Juvenile myoclonic epilepsy, not intractable, with status epilepticus (HCC) 09/28/2020 Anxiety and depression 03/16/2020 Resolved Ambulatory Problems Diagnosis Date Noted Concussion with loss of consciousness of 30 minutes or less 10/30/2018 Past Medical History: Diagnosis Date Abnormal weight gain Anxiety Depression Epilepsy (HCC) History of suicide attempt Mood changes Seizures (HCC) Urinary tract infection HISTORY PAST MEDICAL HISTORY SOCIAL HISTORY Past Medical History: Diagnosis Date Abnormal weight gain Anxiety Concussion with loss of consciousness of 30 minutes or less 10/30/2018 Depression Epilepsy (HCC) History of suicide attempt Mood changes PCOS (polycystic ovarian syndrome) Seizures (HCC) Urinary tract infection Social History Tobacco Use Smoking status: Never Smokeless tobacco: Never Vaping Use Vaping status: Never Used Substance Use Topics Alcohol use: Yes Comment: caffeine intake: 2 sodas daily Drug use: Never FAMILY HISTORY Family History Problem Relation Name Age of Onset Valvular heart disease Mother No Known Problems Father Valvular heart disease Sister Cirrhosis Mother's Sister Cirrhosis Maternal Grandmother Valvular heart disease Maternal Grandmother Heart attack Maternal Grandmother Dementia Paternal Grandmother Cancer Paternal Grandfather Ashutosh Bird Lung cancer Paternal Grandfather Ashutosh Bird SURGICAL HISTORY No past surgical history on file. REVIEW OF SYSTEMS Review of Systems: Review of Systems Genitourinary: Positive for menstrual problem and vaginal bleeding. OBJECTIVE Objective: Physical Exam Constitutional: Appearance: Normal appearance. She is well-developed. Cardiovascular: Rate and Rhythm: Normal rate and regular rhythm. Pulmonary: Effort: Pulmonary effort is normal. Breath sounds: Normal breath sounds. Abdominal: General: Bowel sounds are normal. There is no distension. Palpations: Abdomen is soft. Tenderness: There is no abdominal tenderness. There is no guarding or rebound. Musculoskeletal: General: No swelling. Normal range of motion. Right lower leg: No edema. Left lower leg: No edema. Neurological: Mental Status: She is alert and oriented to person, place, and time. Skin: General: Skin is warm and dry. Psychiatric: Mood and Affect: Mood normal. Behavior: Behavior normal. Vitals and nursing note reviewed. Exam conducted with a insurance rater present. Vitals: Estimated body mass index is 27.74 kg/m as calculated from the following: Height as of 04/13/24: 5' 1 . Weight as of this encounter: 146 lb 12.8 oz. BP: 104/68 No LMP recorded. ASSESSMENT & PLAN ICD-10-CM 1. BV (bacterial vaginosis) N76.0 B96.89 2. Menorrhagia with irregular cycle N92.1 Patient with complaints of dysfunctional uterine bleeding and menorrhagia over the last several months. She is not currently on any control but Would like to discuss heavy cycles and treatment. Given that she is Lamictal she is aware that progesterones are our safest option. She was given the option of IUD, OCP's and depo and prefers OCP. She also reports continue vaginal discharge despite prior treatment with Nuvessa. Patient with recurrent bacterial vaginosis will start Flagyl and discuss Boric Acid if no improvement. Documented by Andreas Samson NP on behalf of: Jonathan Elizabeth DO documented in this encounter [facility] 08-18-2024 Telephone encounter Note The following approved medication requests have been transmitted electronically. Requested Prescriptions Signed Prescriptions Disp Refills zonisamide (ZONEGRAN) 100 mg capsule 270 capsule 0 Sig: TAKE 3 CAPSULES BY MOUTH AT BEDTIME Authorizing Provider: SAMMI ESCALANTE APRN.CNP [facility] 08-18-2024 Miscellaneous Notes The following approved medication requests have been transmitted electronically. Requested Prescriptions Signed Prescriptions Disp Refills zonisamide (ZONEGRAN) 100 mg capsule 270 capsule 0 Sig: TAKE 3 CAPSULES BY MOUTH AT BEDTIME Authorizing Provider: SAMMI ESCALANTE APRN.CNP Prescription Refill: Requested by: pharmacy Please E-Scribe Caller Contact Number: electronic Pharmacy Name: [facility] Number: [phone] Generic/ brand: Generic 30 or 90 day supply requested: 90 Last appointment: 01/09/24 Next Appointment: none Patient of Dr. Abraham Bird [id number] [address] [facility] [id number] documented in this encounter [facility] 08-18-2024 Telephone encounter Note Prescription Refill: Requested by: pharmacy Please E-Scribe Caller Contact Number: electronic Pharmacy Name: [facility] Number: [phone] Generic/ brand: Generic 30 or 90 day supply requested: 90 Last appointment: 01/09/24 Next Appointment: none Patient of Dr. Abraham Huizar Rodo Bird [id number] [address] [facility] [id number] [facility] 06-18-2024 History of Present illness Narrative Images from the original note were not included. Chief Complaint: seizures Subjective Quentin Bird, 23 y.o., female Patient presents today for a neurologic consult for seizure disorder. Patient states she has been having seizures since 2016. She is on Zonegran and Lamictal for seizures. She has been on Zonegran since December of 2023 and the Lamictal February of 2023. She was previously on Vimpat and Lamictal. She uses Midazolam as an abortive medication. Her last seizure was February of this year. She is unaware of this event. 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 She was told this seizure lasted about two minutes. She reports all of her previous seizures have been 2 minutes or longer. She has had a total of four seizures. She is unaware during these events. She reports body shaking and tongue bite one time. She denies loss of bladder or bowel. She does report vomiting one time. Seizure history Onset: 2016 Semiology: Generalized tonic-clonic and often occurring during sleep Epilepsy type: Juvenile myoclonic epilepsy / generalized Aura: No Postictal state: Yes Comorbid conditions: Anxiety and depression Imaging: CT scan of the brain in 2017: Unremarkable Most recent EEG: April of 2024: Positive for generalized epilepsy Most recent seizure: February 2023 Previous antiepileptic medications: Vimpat Current antiepileptic medications: Lacosamide and Zonegran Review of Systems Respiratory: Negative for shortness of breath. Cardiovascular: Positive for palpitations. Musculoskeletal: Negative for back pain. Neurological: Negative for dizziness, syncope and light-headedness. Psychiatric/Behavioral: Negative for confusion. Past Medical History: Diagnosis Date Abnormal weight gain Anxiety Concussion with loss of consciousness of 30 minutes or less 10/30/2018 Depression (CMS/HCC) Epilepsy History of suicide attempt Mood changes PCOS (polycystic ovarian syndrome) Seizures (CMS/HCC) Urinary tract infection No past surgical history on file. Family History Problem Relation Name Age of Onset Valvular heart disease Mother No Known Problems Father Valvular heart disease Sister Cirrhosis Mother's Sister Cirrhosis Maternal Grandmother Valvular heart disease Maternal Grandmother Heart attack Maternal Grandmother Dementia Paternal Grandmother Cancer Paternal Grandfather Ashutosh Bird Lung cancer Paternal Grandfather Ashutosh Bird Social History Tobacco Use Smoking status: Never Smokeless tobacco: Never Substance Use Topics Alcohol use: Yes Comment: caffeine intake: 2 sodas daily Allergies: Patient has no known allergies. Vitals: 06/18/24 1528 BP: 106/72 Pulse: 79 SpO2: 98% Body mass index is 30.04 kg/m . Weight: 159 lb Neurologic exam: Mental status: Awake, alert to person, place and time. Recent and remote memory are intact. Language is fluent without aphasia. Attention and concentration are normal. Fund of knowledge is appropriate for level of education. Cranial nerves: CN II: Visual acuity is normal. Visual farooq full to confrontation. CN III, IV, : pupils equal round and reactive to light. Extraocular movements intact. No ptosis present. CN V: Facial sensation is normal. CN VII: Full and symmetric facial movement. CN VIII: Hearing is normal to finger rub bilaterally: CN IX and X: Palate elevates symmetrically. CN XI: Shoulder shrug is normal bilaterally. CN XII: Tongue is midline without atrophy or fasciculation. Motor: RUE Strength deltoid, , biceps , triceps , wrist extensors , wrist flexor , rd manager strength 5/5. LUE Strength deltoid , biceps , triceps , wrist extensors , wrist flexor , rd manager strength 5/5. RLE Strength illopsoas, quadriceps, tibialis anterior, and gastrocnemius strength 5/5. LLE Strength illopsoas, quadriceps, tibialis anterior, and gastrocnemius strength 5/5. Normal tone x4 extremities. Bulk is normal. Sensory: Sensation is intact to light touch throughout Four extremities. Reflexes: RUE biceps reflex 2+ brachioradialis reflex 2+ . LUE biceps reflex 2+ brachioradialis reflex 2+ . RLE knee reflex 2+ . LLE knee reflex 2+ . Aguilar's sign negative. Coordination: [id number] testing and rapid alternating movements are normal Gait: Normal Review and summary of old records: CT of the brain on 09/10/2020: No acute intracranial process Review of epilepsy notes from [facility] in December of 2023 note the patient has history of Avel, anxiety and depression and they also note that the patient's seizures began around the age of 19 with a generalized tonic-clonic event after the patient had fallen asleep in the chair and turned blue. The patient was admitted at that time and had amnestic features to the event. No aura. She was postictal thereafter for very hours as noted. She was started on medication around October 2023 of lamotrigine. She also was noted to have tachycardia. 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 The patient has been seen [facility]. She was initially placed on Vimpat. Patient was concerned this was not working and ultimately was transitioned to lamotrigine and Zonegran. She is currently on lamotrigine 150 mg p.o. b.I.d. and Zonegran 300 mg at night. She did have an initial generalized tonic-clonic event, had multiple positive EEGs and did have positivity with photic stimulation with a generalized appearance consistent with Avel. The patient did have a CT scan during her initial presentation to the hospital which was unremarkable. Unfortunately, despite being compliant so she states with the medications, the patient did have a breakthrough seizure in February of 2023. She did not miss doses of medication and can not relate a provoking event that led to this. She has had approximately 4 seizures over the course of the last 1 year. Examination unremarkable Plan: Continue lamotrigine 150 mg p.o. b.I.d. Continue Zonegran 300 mg p.o. q.h.s. Start Keppra 500 mg p.o. b.I.d. Patient is on folic acid 2 mg p.o. daily. She would like to have kids eventually. Not currently on control. No immediate plans for family planning were to have children at this time. We did talk about the need for contraceptive ideally with her medications. Seizure precautions as previously noted to the patient from [facility] SEIZURE PRECUATIONS to follow for 6 months after any seizure Please continue to practice seizure precautions and first aid. -No driving. -Please do not climb to high places, such as rooftops, up trees or mountain climbing. -When near water, you should be supervised by an adult or person who is aware of risk of seizures, for example during tub baths, swimming, boating or fishing. -A helmet should be worn when riding a bike. First Aid for a grand mal seizure: -Remain calm and do not panic, call for assistance if needed. -Lower the person safely to the ground and loosen any tight clothing. -Place the person in a side-lying position so any saliva or vomit will easily drain out of the mouth. Actively seizing people are at a increased risk of choking on their saliva or vomit. Do not put any objects such as a tongue depressor or fingers into the mouth. Protect the persons head from injury while they are on their side. -Time the seizure from start to finish so you know how long it lasted (most grand mal seizures are no more than 1 or 2 minutes long). If the seizure is continuing longer than 5 minutes, call the ambulance at 911 for transportation to the nearest Emergency Room. -After a grand mal seizure, people are very sleepy and tired for several minutes or even a couple of hours. They may also complain of headache, nausea and may vomit. Please remember: -Call your doctor if you feel that the severity or number of seizures has changed from baseline. -If you have several grand mal seizures without waking up in-between, please notify your doctor. Seizure safety during sleep: -Always take anti-epileptic medications as prescribed by your doctor. -Objects near the bed may cause injury if someone has a seizure is prone to falling out of bed. Move heavy furniture, floor lamps, night stands and other dangerous objects away from the bed. -Mattresses and pillows should be firm and not soft. All stuffed animals, toys and other objects should be removed from the bed. Blankets can be layered but should be thin, down comforters may be too soft. -Keep the bed as low to the ground as possible. Some patients with night time seizures may sleep with their mattress on the floor. Others may pad the floor with mats (such as exercise mats used in workout facilities) to pad the floor. -During sleep, keep the bedroom door cracked open so someone can hear if you are having a seizure. Never lock the bedroom door. Some people choose to use baby monitors to observe for seizures at night. -We ask the you keep a record of the seizures you or your child is having. Please do this in the way that works the best for you. We would like to know the number of seizures per day including the date of the seizures, the length of time the seizure lasts, and the intensity of the seizure. If this is a different type of seizure than what you or your child normally has, please document a description and call your doctor. - Also, videos are always helpful. If the seizures are changing in any way, please try to record them on video if possible. This can be done on your cell phone or via a video recorder. This will help when you meet with your doctor. Pt has been fully educated on their diagnosis, lab results, treatment options, follow up plan, return instructions, and discussion of mental health issues documented in this encounter [facility] 05-22-2024 Telephone encounter Note The following approved medication requests have been transmitted electronically. Requested Prescriptions Signed Prescriptions Disp Refills zonisamide (ZONEGRAN) 100 mg capsule 270 capsule 0 Sig: Take 3 capsules by mouth daily at bedtime. Authorizing Provider: YANET BRITO PA-C [facility] 05-22-2024 Miscellaneous Notes The following approved medication requests have been transmitted electronically. Requested Prescriptions Signed Prescriptions Disp Refills zonisamide (ZONEGRAN) 100 mg capsule 270 capsule 0 Sig: Take 3 capsules by mouth daily at bedtime. Authorizing Provider: YANET BRITO PA-C Prescription Refill: Requested by: patient Please E-Scribe Caller Contact Number: [email or web address] Pharmacy Name: [facility] Number: [phone] Generic/ brand: Generic 30 or 90 day supply requested: 90 Last appointment: 01/09/24 Next Appointment: none Patient of Dr. Abraham Bird [id number] [address] [place] [address] documented in this encounter [facility] 05-22-2024 Telephone encounter Note Prescription Refill: Requested by: patient Please E-Scribe Caller Contact Number: [email or web address] Pharmacy [facility]: [facility] Number: [phone] Generic/ brand: Generic 30 or 90 day supply requested: 90 Last appointment: 01/09/24 Next Appointment: none Patient of Dr. Abraham Bird [id number] [place] [address] [facility] 04-13-2024 History of Present illness Narrative Images from the original note were not included. Quentin Bird is a 23 y.o. female presents with chief complaint of New patient exam (Pt has had a high heart rate when she exercises. Pt states she noticed it 2 years ago. Pt states it will be in the 200s. Pt states resting heart rate while sleeping can be in the 40s. Pt denies chest pain at rest but will have chest pain when heart rate is elevated with exercising. Pt denies sob. Pt sees neurology. ) HPI: HPI Patient presents to the office to establish care and for her wellness examination. She does see neurology for seizures and has a follow up this Saturday 04/15. She is getting another opinion for neurology at [facility] and has an appointment in May. Recently neurologist stopped Vimpat and started Zonisamide. Also taking Lamictal and Folic Acid. She does see Dr. Elizabeth for OBGYN who manages her PCOS and depression medications. Her last seizure was on 03/04 while working. States she had a grand mal seizure and coworkers had to administer her midazolam nasal spray. Was seizure free for 2 years jan 2022 until February 2024 has had 4 seizures. She does admit aura, would black out 10-15 min prior to havign seizure. Cannot remember things after seizure during post ictal. Admits most of her seizures were while sleeping. She did see sleep medicine and had sleep study done. Was told she did not have sleep apnea or RLS. Everything was normal. Neurology did recommend her going off of Wellbutrin due to decreasing seizure threshold. She is now taking effexor. Denies feeling depressed, had history of suicidal attempt with taking medications. Denies thoughts of hurting herself now. Also admits to having a stutter prior to seizing. She is not able to drive for 6 month after having last seizure. 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 Living with her sister and brother in law. Currently sexually active but denies wanting control at this time. She does admit increased heart rate over 200bpm while doing physical exercise. Noticed it when running on the treadmill. Denies chest pain or feeling SOB during this time. Will have chest tightness. No chest pain. She is UTD on dental exams. No recent vision exams. Denies headaches, vision changes or blurry vision. She denies further concerns today. SUBJECTIVE: MEDICATIONS: Current Outpatient Medications Medication Instructions cyanocobalamin (VITAMIN B-12) 1,000 mcg, Daily folic acid (Folvite) 1 MG tablet lamoTRIgine (LAMICTAL) 100 mg, 2 times daily Magnesium Oxide -Mg Supplement (RA Magnesium) 500 MG capsule Take by mouth metFORMIN XR (GLUCOPHAGE-XR) 1,000 mg, Oral, Daily with evening meal, Do not crush, chew, or split. Multiple Vitamins-Minerals (MULTIVITAMIN GUMMIES WOMENS PO) Take by mouth venlafaxine XR (EFFEXOR XR) 37.5 mg, Oral, Daily, Do not crush or chew. zonisamide (ZONEGRAN) 300 mg, Daily ALLERGIES: No Known Allergies History: Past Medical History: Diagnosis Date Abnormal weight gain Anxiety Concussion with loss of consciousness of 30 minutes or less 10/30/2018 Depression (CMS/HCC) Epilepsy (CMS/HCC) History of suicide attempt Mood changes PCOS (polycystic ovarian syndrome) Seizures (CMS/HCC) Urinary tract infection History reviewed. No pertinent surgical history. Family History Problem Relation Name Age of Onset Valvular heart disease Mother No Known Problems Father Valvular heart disease Sister Cirrhosis Mother's Sister Cirrhosis Maternal Grandmother Valvular heart disease Maternal Grandmother Heart attack Maternal Grandmother Dementia Paternal Grandmother Cancer Paternal Grandfather Ashutosh Bird Lung cancer Paternal Grandfather Ashutosh Bird Social History Socioeconomic History Marital status: Unmarried Spouse name: Not on file Number of children: Not on file Years of education: Not on file Highest education level: Not on file Occupational History Not on file Tobacco Use Smoking status: Never Smokeless tobacco: Never Vaping Use Vaping status: Never Used Substance and Sexual Activity Alcohol use: Yes Comment: caffeine intake: 2 sodas daily Drug use: Never Sexual activity: Yes Partners: Male control/protection: OCP Other Topics Concern Not on file Social History Narrative Merged History Encounter Social Drivers of Health Financial Resource Strain: Not on file Food Insecurity: No Food Insecurity (01/19/2023) [facility]ceived from [facility] Hunger Screening Within the past 12 months we worried whether our food would run out before we got money to buy more.: Never True Within the past 12 months the food we bought just didn't last and we didn't have money to get more.: Never True Transportation Needs: Not on file Physical Activity: Not on file Stress: Not on file Social Connections: Not on file Intimate Partner Violence: Not on file Housing Stability: Not on file I have reviewed and reconciled the history and medication list with the patient today. REVIEW OF SYMPTOMS: Review of Systems Constitutional: Negative for activity change, appetite change and fatigue. HENT: Negative. Respiratory: Negative for cough, shortness of breath and wheezing. Cardiovascular: Negative for chest pain and palpitations. Gastrointestinal: Negative for abdominal pain, diarrhea and nausea. Genitourinary: Negative. Musculoskeletal: Negative. Skin: Negative for color change, rash and wound. Psychiatric/Behavioral: Negative. OBJECTIVE: 10/23/2022 10:25 AM 01/25/2023 3:46 PM 02/22/2023 4:26 PM 10/28/2023 3:34 PM 12/16/2023 9:47 AM 04/13/2024 4:16 PM Vitals BMI 30.04 kg/m2 28.72 kg/m2 28.79 kg/m2 30.66 kg/m2 31.91 kg/m2 30.16 kg/m2 BSA (m2) 1.72 m2 1.72 m2 1.77 m2 1.74 m2 1.77 m2 1.77 m2 Systolic 118 120 106 118 102 108 Diastolic 70 80 70 78 64 78 Heart Rate 83 88 64 SpO2 98 % 98 % Height (in) 5' 5' 1 5' 2 5' 5' 1 Weight (lb) 153.8 152 157.4 157 163.4 159.6 Visit Report Report Report Report Report Report Report Physical Exam Vitals reviewed. Constitutional: General: She is not in acute distress. Appearance: Normal appearance. She is not ill-appearing. HENT: Head: Normocephalic and atraumatic. Right Ear: Tympanic membrane, ear canal and external ear normal. Left Ear: Tympanic membrane, ear canal and external ear normal. Nose: Nose normal. No congestion or rhinorrhea. Mouth/Throat: Mouth: Mucous membranes are moist. Pharynx: Oropharynx is clear. No oropharyngeal exudate. Eyes: Extraocular Movements: Extraocular movements intact. Conjunctiva/sclera: Conjunctivae normal. Pupils: Pupils are equal, round, and reactive to light. Cardiovascular: Rate and Rhythm: Normal rate and regular rhythm. Heart sounds: No murmur heard. Pulmonary: Effort: Pulmonary effort is normal. No respiratory distress. Breath sounds: Normal breath sounds. No wheezing or rhonchi. Abdominal: General: Bowel sounds are normal. There is no distension. Palpations: Abdomen is soft. Tenderness: There is no abdominal tenderness. Musculoskeletal: General: Normal range of motion. Cervical back: Normal range of motion. No rigidity or tenderness. Right lower leg: No edema. Left lower leg: No edema. Lymphadenopathy: Cervical: No cervical adenopathy. Skin: General: Skin is warm and dry. Findings: No rash. Neurological: Mental Status: She is alert. Mental status is at baseline. Psychiatric: Mood and Affect: Mood normal. Behavior: Behavior normal. Thought Content: Thought content normal. Judgment: Judgment normal. ASSESSMENT AND PLAN: Assessment/Plan Diagnoses and all orders for this visit: Wellness examination - CBC; Future - Comprehensive metabolic panel; Future - TSH; Future - T4, free; Future - Lipid panel; Future -Reviewed family history, risk factors for disease and discussed importance of routine exercise and healthy diet. Recommended routine dental/eye exams. Labs ordered and printed for patient, plans to do at [facility]. Discussed routine screenings and patient is UTD. All questions answered. Juvenile myoclonic epilepsy, not intractable, with status epilepticus (CMS/HCC) - ECG 12 lead; Future -Seeing neurology Saturday and getting second opinion in May. Tachycardia - ECG 12 lead; Future -Discussed can be normal with physical activity. Reviewed holter monitor from last year. Will get EKG. Discussed to let me know if she developed chest pain, tightness or difficulty breathing during these activities. EKG printed and given to patient to get done at [facility]. Screening for deficiency anemia - CBC; Future Screening for cardiovascular condition - Comprehensive metabolic panel; Future Screening for thyroid disorder - TSH; Future - T4, free; Future Screening for lipid disorders - Lipid panel; Future PCOS (polycystic ovarian syndrome) -Seeing Dr. Elizabeth routinely, taking Metformin. Recurrent major depression in partial remission (HCC) (CMS/HCC) -Taking effexor right now, managed per Dr. Elizabeth. Anxiety and depression (CMS/HCC) -As above. Follow up in about 1 year (around 04/13/2025) for wellness. documented in this encounter [facility] 03-05-2024 Telephone encounter Note Unable to see if any levels were checked in the ER. I would recommend further increase in her Lamotrigine to 150 mg BID. The following approved medication requests have been transmitted electronically. Requested Prescriptions Signed Prescriptions Disp Refills lamoTRIgine (LAMICTAL) 25 mg tablet 360 tablet 3 Sig: Take 2 tablets by mouth two times a day. Take with 100 mg tablet for a total of 150 mg twice daily. Sammi Escalante APRN.CNP [facility] 03-05-2024 Miscellaneous Notes Unable to see if any levels were checked in the ER. I would recommend further increase in her Lamotrigine to 150 mg BID. The following approved medication requests have been transmitted electronically. Requested Prescriptions Signed Prescriptions Disp Refills lamoTRIgine (LAMICTAL) 25 mg tablet 360 tablet 3 Sig: Take 2 tablets by mouth two times a day. Take with 100 mg tablet for a total of 150 mg twice daily. Sammi Escalante APRN.CNP Seizure Call Last Visit: 01/09/[address] De Leon Next Visit: none scheduled Date and Time of seizure: 01/02/2025 Seizure description: grandmal seizure per pt. Pt vomited on herself. Duration: 2.5 minutes Witnessed: yes Aura: unknown Last Seizure: December 2023 TB: no UI: no Rescue Medication used: Nayzilam used ASM: LTG 125/125 ZNS 300mg QHS Triggers: none noted Back to Base Line: yes Routed for review. Asuncion Garcia RN documented in this encounter [facility] 03-05-2024 Telephone encounter Note Seizure Call Last Visit: 01/09/[address] De Leon Next Visit: none scheduled Date and Time of seizure: 01/02/2025 Seizure description: grandmal seizure per pt. Pt vomited on herself. Duration: 2.5 minutes Witnessed: yes Aura: unknown Last Seizure: December 2023 TB: no UI: no Rescue Medication used: Nayzilam used ASM: LTG 125/125 ZNS 300mg QHS Triggers: none noted Back to Base Line: yes Routed for review. Asuncion Garcia RN [facility] 03-04-2024 Radiology Diagnostic study note [facility] [address] CT Scan Report Signed Patient: Quentin Bird MR#: [id number] 44 : 2000 Acct:[id number] Age/Sex: 23 / F ADM Date: 5 Loc: ER Room: Type: [facility] ER Attending Dr: Copies to: Jimmy Donis DO~ Ordering Provider: Jimmy Donis DO Date of Service: 03/04/24 CT/CT head/brain wo con: seizure CT BRAIN WITHOUT CONTRAST: CLINICAL HISTORY: 2 minute witnessed seizure, lower to floor, denies pain COMPARISON: None TECHNIQUE: Contiguous axial unenhanced images were obtained through the brain. This CT exam was performed using one or more following dose reduction techniques: Automated exposure control, adjustment of the mA and/or kV accordingto patient size, or use of iterative reconstruction technique. FINDINGS: There is no evidence of midline shift, intra or extra-axial fluid collection, hemorrhage or CT evidence of large vascular distribution stroke. Visualized intraorbital contents appear unremarkable. Visualized paranasal sinuses are clear. The surrounding soft tissues are normal. CT/CT head/brain wo con IMPRESSION: NO ACUTE INTRACRANIAL ABNORMALITY. Impression dictated by: Tomas Graham M.D.03/04/2024 10:41 AM Dictation Location: [facility]-- Transcribed By: [facility] 03/04/24 1041 Dictated By: Tomas Graham MD 03/04/24 1039 Signed By: 03/04/[address] [facility] Work Phone: 03-04-2024 Telephone encounter Note The following approved medication requests have been transmitted electronically. Requested Prescriptions Signed Prescriptions Disp Refills lamoTRIgine (LAMICTAL) 25 mg tablet 180 tablet 3 Sig: Take 1 tablet by mouth two times a day. Take with 100 mg tablet for a total of 125 mg twice daily. lamoTRIgine (LAMICTAL) 100 mg tablet 180 tablet 3 Sig: Take 1 tablet by mouth two times a day. Take with 25 mg tablet. Sammi Escalante APRN.CNP [facility] 03-04-2024 Miscellaneous Notes The following approved medication requests have been transmitted electronically. Requested Prescriptions Signed Prescriptions Disp Refills lamoTRIgine (LAMICTAL) 25 mg tablet 180 tablet 3 Sig: Take 1 tablet by mouth two times a day. Take with 100 mg tablet for a total of 125 mg twice daily. lamoTRIgine (LAMICTAL) 100 mg tablet 180 tablet 3 Sig: Take 1 tablet by mouth two times a day. Take with 25 mg tablet. Sammi Escalante APRN.CNP Pt is requesting refill for LTG 125/125. MC message routed for review. Asuncion Garcia RN documented in this encounter [facility] 03-04-2024 Telephone encounter Note Pt is requesting refill for LTG 125/125. MC message routed for review. Asuncion Garcia RN [facility] 02-13-2024 Telephone encounter Note I spoke with the pharmacist at [facility], titration schedule reviewed. Joon Melton RN [facility] 02-13-2024 Miscellaneous Notes I spoke with the pharmacist at [facility], titration schedule reviewed. Joon Melton RN Medication Concern Person Calling Umesh Moon Name of medication Vimpat Concern with medication Pharmacy needs clarification on SIG. Patient of Dr. De Leon documented in this encounter [facility] 02-13-2024 Telephone encounter Note Medication Concern Person Calling Umesh Moon Name of medication Vimpat Concern with medication Pharmacy needs clarification on SIG. Patient of Dr. De Leon [facility] 02-11-2024 Telephone encounter Note Spoke with [facility] They have the RX and sending to the pharmacist to review since a controled medication and made it a high priority Mishel Carias RN [facility] 02-11-2024 Miscellaneous Notes Spoke with [facility] They have the RX and sending to the pharmacist to review since a controled medication and made it a high priority Mishel Carias RN documented in this encounter [facility] 02-10-2024 Telephone encounter Note The following approved medication requests have been transmitted electronically. Requested Prescriptions Signed Prescriptions Disp Refills lacosamide (VIMPAT) 50 mg tab 168 tablet 0 Sig: Wk 1: 150/200 Wk 2: 150/150 Wk 3: 100/150 Wk 4: 100/100 Wk 5: 50/100 WK 6: 50/50 Wk 7: 50 at bedtime Wk 8: STOP LCM Authorizing Provider: ROSELYN MCCULLOUGH APRN.CNP [facility] 02-10-2024 Miscellaneous Notes The following approved medication requests have been transmitted electronically. Requested Prescriptions Signed Prescriptions Disp Refills lacosamide (VIMPAT) 50 mg tab 168 tablet 0 Sig: Wk 1: 150/200 Wk 2: 150/150 Wk 3: 100/150 Wk 4: 100/100 Wk 5: 50/100 WK 6: 50/50 Wk 7: 50 at bedtime Wk 8: STOP LCM Authorizing Provider: ROSELYN MCCULLOUGH APRN.TELEPHONE STATION REPAIRER Images from the original note were not included. Prescription for LCM 50mg tablet. [facility]'s response: Routed for new prescription. Asuncion Garcia RN Medication Concern Person Calling: Fax from [facility] Phone #: [phone] / Name of medication: Lacosamide/Vimpat - 50MG Concern with medication: Clarification request for dosage instructions Directions are missing on the original prescription dated 02/07/[address] De Leon Forwarded to nurse. documented in this encounter [facility] 02-10-2024 Telephone encounter Note Images from the original note were not included. Prescription for LCM 50mg tablet. [facility]'s response: Routed for new prescription. Asuncion Garcia RN [facility] 02-10-2024 Telephone encounter Note Medication Concern Person Calling: Fax from [facility] Phone #: [phone] / Name of medication: Lacosamide/Vimpat - 50MG Concern with medication: Clarification request for dosage instructions Directions are missing on the original prescription dated 02/07/[address] De Leon Forwarded to nurse. [facility] 02-07-2024 Telephone encounter Note The following approved medication requests have been transmitted electronically. Requested Prescriptions Signed Prescriptions Disp Refills lacosamide (VIMPAT) 50 mg tab 168 tablet 0 Sig: Please follow wean schedule provided via Shots Authorizing Provider: HOSEA KU PA-C [facility] 02-07-2024 Miscellaneous Notes The following approved medication requests have been transmitted electronically. Requested Prescriptions Signed Prescriptions Disp Refills lacosamide (VIMPAT) 50 mg tab 168 tablet 0 Sig: Please follow wean schedule provided via Shots Authorizing Provider: HOSEA KU PA-C RX corrected The following approved medication requests have been transmitted electronically. Requested Prescriptions Signed Prescriptions Disp Refills lacosamide (VIMPAT) 50 mg tab 168 tablet 0 Sig: Please follow wean schedule provided via Shots Authorizing Provider: HOSEA KU PA-C Prescription for LCM 50mg tablets is unclear. Pharmacy asking to verify instructions and provide the duration (day supply) that 168 tablets are expected to last the pt. Routed. Asuncion Garcia RN Form received: From (agency / facility / parent): [employer] agricultural equipment salesperson (if given): Phone #: [phone] Fax # : [phone] Email: Information requested: Physicians statement Patient of Dr. De Leon Forwarded to Nurse documented in this encounter [facility] 02-07-2024 Telephone encounter Note Lab order form signed by Hosea Ku via Dotstudioz. Lab order form sent to [facility] (fax #: [phone]) via RightFax. Confirmation received. Asuncion Garcia RN [facility] 02-07-2024 Miscellaneous Notes Lab order form signed by Hosea Ku via Longboard Mediagn. Lab order form sent to [facility] (fax #: [phone]) via Qwbcgx. Confirmation received. Asuncion Garcia RN Lab order form sent to Hosea Ku to review and sign via Dotstudioz. Asuncion Garcia RN Order for ZNS level placed Hosea Ku PA-C' The following approved medication requests have been transmitted electronically. Requested Prescriptions Signed Prescriptions Disp Refills zonisamide (ZONEGRAN) 100 mg capsule 270 capsule 1 Sig: Take 3 capsules by mouth daily at bedtime. lacosamide (VIMPAT) 50 mg tab 168 tablet 0 Sig: Please follow titration schedule to wean Lacosamide provided in MyChart Hosea Ku PA-C MC message sent to patient. Waiting to confirm pharmacy before I send RX Hosea Ku PA-C Response from Hosea Ku: Can you please verify what dose of LTG she is currently taking? Asuncion Garcia RN ANDRES on 01/09/[address] De Leon: 01/09/24: Had breakthrough seizure. Was only on 25 mg twice per day lamotrigine. Will continue titration. If too much side effect at full dose in combination with lacosamide, or continued seizures at full dose, will consider change in lacosamide to another medicine (possible zonisamide). Discussed factors which may exacerbate seizures. Discussed possible future options. PLAN: -Continue lacosamide 200 mg BID -Continue titration to lamotrigine 125 mg BID -If too much side effect from dual sodium agents at full dose, or continues seizures, will consider change in lacosamide to zonisamide -If insomnia with increased lamotrigine, could consider extended release formulation -Seizure precautions, no driving until at least 6 months seizure free -EEG long -Possible future EMU evaluation -Patient deferred referral back to sleep center -Follow up 3 months, sooner if needed MC message routed for review. Asuncion Garcia RN documented in this encounter [facility] 02-07-2024 Telephone encounter Note The following approved medication requests have been transmitted electronically. Requested Prescriptions Signed Prescriptions Disp Refills zonisamide (ZONEGRAN) 100 mg capsule 270 capsule 0 Sig: Take 3 capsules by mouth daily at bedtime. Authorizing Provider: HOSEA KU Refused Prescriptions Disp Refills lacosamide (VIMPAT) 50 mg tab 168 tablet 0 Sig: Please follow wean schedule provided via MyChart Refused By: HOSEA KU Reason for Refusal: Records indicate that there is a valid prescription at the pharmacy Hosea Ku PA-C [facility] 02-07-2024 Miscellaneous Notes The following approved medication requests have been transmitted electronically. Requested Prescriptions Signed Prescriptions Disp Refills zonisamide (ZONEGRAN) 100 mg capsule 270 capsule 0 Sig: Take 3 capsules by mouth daily at bedtime. Authorizing Provider: HOSEA KU Refused Prescriptions Disp Refills lacosamide (VIMPAT) 50 mg tab 168 tablet 0 Sig: Please follow wean schedule provided via MyChart Refused By: HOSEA KU Reason for Refusal: Records indicate that there is a valid prescription at the pharmacy Hosea Ku PA-C Prescription Refill: Requested by: patient Please Call in Caller Contact Number: [phone] (home) [facility] Name[facility] Pharmacy Number: [id number] Generic/ brand: generic 30 or 90 day supply requested: 90 Last appointment: Next Appointment: none Patient of Dr. abraham Bird [id number] [address] [facility] [id number] New pharmacy above documented in this encounter [facility] 02-07-2024 Telephone encounter Note Prescription Refill: Requested by: patient Please Call in Caller Contact Number: [phone] (home) Pharmacy Name: [facility] Pharmacy Number: [id number] Generic/ brand: generic 30 or 90 day supply requested: 90 Last appointment: Next Appointment: none Patient of Dr. abraham Bird [id number] [address] [facility] [address] [address] [facility] 02-07-2024 Telephone encounter Note RX corrected The following approved medication requests have been transmitted electronically. Requested Prescriptions Signed Prescriptions Disp Refills lacosamide (VIMPAT) 50 mg tab 168 tablet 0 Sig: Please follow wean schedule provided via MyChart Authorizing Provider: HOSEA KU PA-C [facility] 02-07-2024 Telephone encounter Note Lab order form sent to Hosea Ku to review and sign via DocuSign. Asuncion Garcia RN [facility] 02-07-2024 Telephone encounter Note Prescription for LCM 50mg tablets is unclear. Pharmacy asking to verify instructions and provide the duration (day supply) that 168 tablets are expected to last the pt. Routed. Asuncion Garcia RN [facility] 02-07-2024 Telephone encounter Note Form received: From (agency / facility / parent): [facility] agricultural equipment salesperson (if given): Phone #: [phone] Fax # : [phone] Email: Information requested: Physicians statement Patient of Dr. De Leon Forwarded to Nurse [facility] 02-06-2024 Telephone encounter Note Order for ZNS level placed Hosea Ku PA-C' [facility] 02-06-2024 Telephone encounter Note The following approved medication requests have been transmitted electronically. Requested Prescriptions Signed Prescriptions Disp Refills zonisamide (ZONEGRAN) 100 mg capsule 270 capsule 1 Sig: Take 3 capsules by mouth daily at bedtime. lacosamide (VIMPAT) 50 mg tab 168 tablet 0 Sig: Please follow titration schedule to wean Lacosamide provided in MyChart Hosea Ku PA-C [facility] [place] 02-05-2024 Telephone encounter Note MC message sent to patient. Waiting to confirm pharmacy before I send RX Hosea Ku PA-C [facility] [place] 02-05-2024 Telephone encounter Note Response from Hosea Ku: Can you please verify what dose of LTG she is currently taking? Asuncion Garcia RN [facility] 02-04-2024 Telephone encounter Note ANDRES on 01/09/[address] De Leon: 01/09/24: Had breakthrough seizure. Was only on 25 mg twice per day lamotrigine. Will continue titration. If too much side effect at full dose in combination with lacosamide, or continued seizures at full dose, will consider change in lacosamide to another medicine (possible zonisamide). Discussed factors which may exacerbate seizures. Discussed possible future options. PLAN: -Continue lacosamide 200 mg BID -Continue titration to lamotrigine 125 mg BID -If too much side effect from dual sodium agents at full dose, or continues seizures, will consider change in lacosamide to zonisamide -If insomnia with increased lamotrigine, could consider extended release formulation -Seizure precautions, no driving until at least 6 months seizure free -EEG long -Possible future EMU evaluation -Patient deferred referral back to sleep center -Follow up 3 months, sooner if needed MC message routed for review. Asuncion Garcia RN [facility] 01-31-2024 Telephone encounter Note The following approved medication requests have been transmitted electronically. Requested Prescriptions Signed Prescriptions Disp Refills lacosamide (VIMPAT) 200 mg 180 tablet 1 Sig: Take 1 tablet by mouth two times a day for 180 days. 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 Authorizing Provider: DEWAYNE OSORIO PA-C [facility] 01-31-2024 Miscellaneous Notes The following approved medication requests have been transmitted electronically. Requested Prescriptions Signed Prescriptions Disp Refills lacosamide (VIMPAT) 200 mg 180 tablet 1 Sig: Take 1 tablet by mouth two times a day for 180 days. 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 Authorizing Provider: DEWAYNE OSORIO PA-C Prescription Refill: Requested by: patient Please E-Scribe Caller Contact Number: my chart Pharmacy Name: [facility] Pharmacy Number: [id number] Generic/ brand: generic 30 or 90 day supply requested: 90 Last appointment: 01/09/24 Next Appointment: none Patient of Dr. De Leon documented in this encounter [facility] 01-31-2024 Telephone encounter Note Prescription Refill: Requested by: patient Please E-Scribe Caller Contact Number: my chart Pharmacy Name: [facility] Pharmacy Number: [id number] Generic/ brand: generic 30 or 90 day supply requested: 90 Last appointment: 01/09/24 Next Appointment: none Patient of Dr. De Leon [facility] 01-10-2024 Miscellaneous Notes Pt will be going to [employer] [facility] (fax #: [phone]). Lab order form sent to [facility] (fax #: [phone]) via LiveHive. Confirmation received. Asuncion Garcia RN Lab order form signed by Mario Rojas via Dotstudioz. Artist[employer] message sent to pt, in this encounter, to confirm laboratory. Asuncion Garcia RN Lab order form sent to Mario Rojas to review and sign via Dotstudioz. Asuncion Garcia RN Lab orders placed. Mario Rojas PA-C Images from the original note were not included. Daisy De Leon, DO Asuncion Garcia RN Can we please send an order for trough lamotrigine level, CBC, CMP to [facility]? To be drawn after lamotrigine titration complete. Routed for lab orders. Asuncion Garcia RN documented in this encounter [facility] 01-10-2024 Telephone encounter Note Pt will be going to [facility] (fax #: [phone]). Lab order form sent to [facility] (fax #: [phone]) via LiveHive. Confirmation received. Asuncion Garcia RN [facility] 01-10-2024 Telephone encounter Note Lab order form signed by Mario Rojas via [employer]stud[employer]. [employer] message sent to pt, in this encounter, to confirm laboratory. Asuncion Garcia RN [facility] 01-09-2024 Telephone encounter Note Lab order form sent to Mario Rojas to review and sign via DocuSign. Asuncion Garcia RN [facility] 01-09-2024 Telephone encounter Note Lab orders placed. Mario Rojas PA-C [facility] 01-09-2024 Telephone encounter Note Images from the original note were not included. Daisy De Leon, Asuncion Dejesus RN Can we please send an order for trough lamotrigine level, CBC, CMP to [facility]? To be drawn after lamotrigine titration complete. Routed for lab orders. Asuncion Garcia RN [facility] 01-09-2024 Instructions Daisy De Leno DO - 01/09/2024 3:12 PM EST Empowering epilepsy Lamotrigine titration schedule ADULTS Monotherapy or polytherapy with other non-enzyme inducers/inhibitors Lamotrigine 25 mg pills Week Morning # of pills (25 mg/pill) Evening # of pills (25 mg/pill) Total daily dose Week 1 & 2 0 1 25 mg Week 3 & 4 1 1 50 mg Week 5 1 2 75 mg Week 6 2 2 100 mg Week 7 2 3 125 mg Week 8 3 3 150 mg Week 9 3 4 175 mg Week 10 4 4 200 mg Week 11 4 5 225 mg Week 12 5 5 250 mg Then if doing well contact office for updated prescription. Get a trough level drawn of the medicine in your blood Watch for any new skin rash, skin blisters, redness/blistering in lips or around eyes. Call us and notify in case of these adverse effects. You should be seen by a doctor if you notice these changes. If determined to be medication induced, you may need an alternate medicine. Continue lacosamide 200 mg twice per day Continue folic acid 2 mg daily We will then consider if we can wean the lacosamide, or if seizures persist we can always try another medicine in its place, possibly zonisamide We discussed a possible future EMU evaluation to clarify diagnosis and discuss future options SEIZURE PRECUATIONS to follow for 6 months after any seizure Please continue to practice seizure precautions and first aid. -No driving. -Please do not climb to high places, such as rooftops, up trees or mountain climbing. -When near water, you should be supervised by an adult or person who is aware of risk of seizures, for example during tub baths, swimming, boating or fishing. -A helmet should be worn when riding a bike. First Aid for a grand mal seizure: -Remain calm and do not panic, call for assistance if needed. -Lower the person safely to the ground and loosen any tight clothing. -Place the person in a side-lying position so any saliva or vomit will easily drain out of the mouth. Actively seizing people are at a increased risk of choking on their saliva or vomit. Do not put any objects such as a tongue depressor or fingers into the mouth. Protect the persons head from injury while they are on their side. -Time the seizure from start to finish so you know how long it lasted (most grand mal seizures are no more than 1 or 2 minutes long). If the seizure is continuing longer than 5 minutes, call the ambulance at 911 for transportation to the nearest Emergency Room. -After a grand mal seizure, people are very sleepy and tired for several minutes or even a couple of hours. They may also complain of headache, nausea and may vomit. Please remember: -Call your doctor if you feel that the severity or number of seizures has changed from baseline. -If you have several grand mal seizures without waking up in-between, please notify your doctor. Seizure safety during sleep: -Always take anti-epileptic medications as prescribed by your doctor. -Objects near the bed may cause injury if someone has a seizure is prone to falling out of bed. Move heavy furniture, floor lamps, night stands and other dangerous objects away from the bed. -Mattresses and pillows should be firm and not soft. All stuffed animals, toys and other objects should be removed from the bed. Blankets can be layered but should be thin, down comforters may be too soft. -Keep the bed as low to the ground as possible. Some patients with night time seizures may sleep with their mattress on the floor. Others may pad the floor with mats (such as exercise mats used in workout facilities) to pad the floor. -During sleep, keep the bedroom door cracked open so someone can hear if you are having a seizure. Never lock the bedroom door. Some people choose to use baby monitors to observe for seizures at night. -We ask the you keep a record of the seizures you or your child is having. Please do this in the way that works the best for you. We would like to know the number of seizures per day including the date of the seizures, the length of time the seizure lasts, and the intensity of the seizure. If this is a different type of seizure than what you or your child normally has, please document a description and call your doctor. - Also, videos are always helpful. If the seizures are changing in any way, please try to record them on video if possible. This can be done on your cell phone or via a video recorder. This will help when you meet with your doctor. documented in this encounter [facility] 01-09-2024 Note HNO ID: [id number] Author: DAISY DE LEON DO Service: ? Author Type: Physician Type: Progress Notes Filed: 01/09/2024 15:45 Note Text: [facility] Patient Name: Quentin Bird Date of : 2000 ESTABLISHED EPILEPSY CLINIC NOTE 01/09/2024 2:40 PM Reason for Visit: Established Patient and Follow Up Clinical Summary: Ms. Bird is a 23 year old female seen in [facility]. Classification Summary HISTORY OF PRESENT ILLNESS Handedness: Age of onset: Seizure History and Evolution Quentin Bird is a 23 year old left handed woman (has a left handed sister and both grandpas left handed) with a past medical history of RAHEEL, anxiety and depression that presents here today for transfer to adult epilepsy care. She presents here today with her mom Shaylee. September 11 2019 (around age 19), Quentin had her first seizure. Quentin was asleep in a chair and her sister noticed a body jerk on Quentin. When mother arrived, Quentin was blue and she was convulsing and foaming at the mouth. EMS arrived and took her to the local hospital. She got fluids and for a CT scan. Postictal was confusion and lost of memory for 3 hours. Quentin has not recollection of the seizure or what she has done before the seizure or in previous days before the seizure. Short term memory was truly affected. She could talk after the seizure but memory was impaired. Seizure occurred out of sleep. Quentin reports not aura. In hindsight they realized that she was having a lot of staring off into space. She would snap out of it if you should call her name. Now concerned she was having seizures. She was started on a medicine around October 2023. She was started on lacosamide. Mother reported that they received an alert from Quentin's iwatch of a tachycardia on 159-160s at 3:15 am but not seizure was observed. Quentin has been reported excessive tiredness since she had the seizures and she is sweating very easily since she had the seizure. This can happen inside or outside. Sleep is 8-9 hours with no interruptions. She is also taking naps if she not busy. Quentin has 2 jobs and she plays soccer. 11/13/23: She does not think the lacosamide is working well for her anymore. Has noticed that the jerks are more frequently. Dropping things. Feeling like she is out of her body. She has not been on any medicines other than lacosamide. Most of her generalized seizures have been out of sleep. Has only been a couple while awake. Started on lacosamide 100 mg twice per day. Went 2.5 years without having one. Then later increased for seizure. August 2023 it was increased for seizure. She is currently on lacosamide 200 mg twice per day. She does not know if her last medicine increase helped, did not see a noticeable difference. She is taking extra medicines, one lacosamide 200 mg, 3 or 4 times a month because she is feeling like she is going to have seizure. 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 Currently holding off because of the last seizure. She feels like her memory is horrible since her first seizure. She lives at home with her mom currently. She takes metformin for possible PCOS. She takes folic acid 2 mg daily. She would like to have kids eventually. Further in the future. Not currently on any type of control. She is currently on wellbutrin 150 mg daily. She has been on this for several years. She has had pretty severe depression in the past. Was on one medicine and had an attempt. Interval Seizure History Quentin Bird is a 23 year old left handed woman (has a left handed sister and both grandpas left handed) with a past medical history of RAHEEL, anxiety and depression that presents here today for follow up for epilepsy. When she was last seen she was started on lamotrigine titration. She is currently taking two in the AM and two in the PM. She is groggy in the morning for about an hour after she wakes up. She remains on lacosamide 200 mg twice per day. Since she was last seen she had one seizures. December 22 2023. She was at work. She was talking and then she stared off into space and then started shaking. Lasted 3.5 minutes. They had to give her IV lorazepam afterwards because they could not get her to calm down. She went in and out of consciousness. This was a little unusual for her. She is now off of the wellbutrin. She is not sure what she was put on. She feels like her mood is all over the place. Maybe getting a little better. She has been having a hard time staying asleep. Saw sleep medicine and was recommended cognitive behavioral therapy. Did not complete this. Total # of Current Anti-seizure Medications: Side Effects to Current Anti-seizure Medications: Seizure Frequency at First Visit: Longest Seizure-free Interval: Hx of generalized (more content not included)... [facility] 01-09-2024 History of Present illness Narrative [facility] Patient Name: Quentin Bird Date of : 2000 ESTABLISHED EPILEPSY CLINIC NOTE 01/09/2024 2:40 PM Reason for Visit: Established Patient and Follow Up Clinical Summary: Ms. Bird is a 23 year old female seen in [facility]. Classification Summary HISTORY OF PRESENT ILLNESS Handedness: Age of onset: Seizure History and Evolution Quentin Bird is a 23 year old left handed woman (has a left handed sister and both grandpas left handed) with a past medical history of RAHEEL, anxiety and depression that presents here today for transfer to adult epilepsy care. She presents here today with her mom Shaylee. September 11 2019 (around age 19), Quentin had her first seizure. Quentin was asleep in a chair and her sister noticed a body jerk on Quentin. When mother arrived, Quentin was blue and she was convulsing and foaming at the mouth. EMS arrived and took her to the local hospital. She got fluids and for a CT scan. Postictal was confusion and lost of memory for 3 hours. Quentin has not recollection of the seizure or what she has done before the seizure or in previous days before the seizure. Short term memory was truly affected. She could talk after the seizure but memory was impaired. Seizure occurred out of sleep. Quentin reports not aura. In hindsight they realized that she was having a lot of staring off into space. She would snap out of it if you should call her name. Now concerned she was having seizures. She was started on a medicine around October 2023. She was started on lacosamide. Mother reported that they received an alert from Quentin's iwatch of a tachycardia on 159-160s at 3:15 am but not seizure was observed. Quentin has been reported excessive tiredness since she had the seizures and she is sweating very easily since she had the seizure. This can happen inside or outside. Sleep is 8-9 hours with no interruptions. She is also taking naps if she not busy. Quentin has 2 jobs and she plays soccer. 11/13/23: She does not think the lacosamide is working well for her anymore. Has noticed that the jerks are more frequently. Dropping things. Feeling like she is out of her body. She has not been on any medicines other than lacosamide. Most of her generalized seizures have been out of sleep. Has only been a couple while awake. Started on lacosamide 100 mg twice per day. Went 2.5 years without having one. Then later increased for seizure. August 2023 it was increased for seizure. She is currently on lacosamide 200 mg twice per day. She does not know if her last medicine increase helped, did not see a noticeable difference. She is taking extra medicines, one lacosamide 200 mg, 3 or 4 times a month because she is feeling like she is going to have seizure. 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 Currently holding off because of the last seizure. She feels like her memory is horrible since her first seizure. She lives at home with her mom currently. She takes metformin for possible PCOS. She takes folic acid 2 mg daily. She would like to have kids eventually. Further in the future. Not currently on any type of control. She is currently on wellbutrin 150 mg daily. She has been on this for several years. She has had pretty severe depression in the past. Was on one medicine and had an attempt. Interval Seizure History Quentin Bird is a 23 year old left handed woman (has a left handed sister and both grandpas left handed) with a past medical history of RAHEEL, anxiety and depression that presents here today for follow up for epilepsy. When she was last seen she was started on lamotrigine titration. She is currently taking two in the AM and two in the PM. She is groggy in the morning for about an hour after she wakes up. She remains on lacosamide 200 mg twice per day. Since she was last seen she had one seizures. December 22 2023. She was at work. She was talking and then she stared off into space and then started shaking. Lasted 3.5 minutes. They had to give her IV lorazepam afterwards because they could not get her to calm down. She went in and out of consciousness. This was a little unusual for her. She is now off of the wellbutrin. She is not sure what she was put on. She feels like her mood is all over the place. Maybe getting a little better. She has been having a hard time staying asleep. Saw sleep medicine and was recommended cognitive behavioral therapy. Did not complete this. Total # of Current Anti-seizure Medications: Side Effects to Current Anti-seizure Medications: Seizure Frequency at First Visit: Longest Seizure-free Interval: Hx of generalized tonic-clonic seizures: Yes Tongue bite: Yes Urine or Bowel Incontinence: No Triggers: Sleep deprivation is a major trigger Memory complaints: She feels her memory is horrible Significant Injuries from Seizures: She has burned herself Driving: No Highest Level of Education: Some college CURRENT OUTPATIENT ANTISEIZURE MEDICATIONS (as of the start of the encounter) lacosamide (VIMPAT) 200 mg (Taking) Take 1 tablet by mouth two times a day for 180 days. 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 midazolam (NAYZILAM) 5 mg/spray (0.1 mL) nasal spray (Taking) Use 1 spray in one nostril as needed for seizures lasting longer than 2 minutes. May repeat dose in alternate nostril after 10 minutes based on response and tolerability. lamoTRIgine (LAMICTAL) 25 mg tablet (Taking) Take 1 tablet by mouth two times a day. Week 1 and 2: 25 mg once per day. Week 3 and 4: 25 mg twice per day. Week 5: 25 mg AM, 50 mg PM, Week 6: 50 mg twice per day. Week 7: 50 mg AM, 75 mg PM, Week 8: 75 mg twice per day, Week 9: 75 mg AM, 100 mg PM, Week 10: 100 mg twice per day. Week 11: 100 mg AM, 125 mg PM, Week 12: 125 mg twice per day. Then continue 125 mg twice per day. Prior Anti-seizure Therapies: Trial Adequacy: Max Daily Dose Achieved: Side Effects: Effectiveness: Comments: Lacosamide Comorbidities: Episode Description: SEIZURE TYPE 1: GTC Onset: 17 Description: see HPI Triggers: none Loss of awareness: Duration: Frequency: Last occurred: Patient Entered Data: EPILEPSY SCORE 11/12/2023 8:42 PM 11/12/2023 8:41 PM 11/12/2023 8:41 PM First answer obtained - 04/22/2023 9:17 PM PHQ-9 SCORE - - - - EM 2 SCORE 1 [Negative Anxiety Screen] - - - EM 7 SCORE - - - - QOLIE-10 SCORE (0=worst; 100=best QoL - higher scores represent better function) - - - - LSSS SCORE (0- no seizures 100- most severe possible seizures) - - - - C-SSRS SCREEN - - - - On average, how many hours of sleep do you get in a 24-hour period? - 8 - - PROMIS Sleep Disturbance T-SCORE - - - 58 [mild] Have you been diagnosed with Sleep Apnea? 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 Current Outpatient Medications Medication Sig venlafaxine ER (EFFEXOR XR) 37.5 mg 24 hr capsule Take 37.5 mg by mouth once daily. magnesium hydroxide (MAGNESIA ORAL) Take 500 mg by mouth once daily. lacosamide (VIMPAT) 200 mg Take 1 tablet by mouth two times a day for 180 days. 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 midazolam (NAYZILAM) 5 mg/spray (0.1 mL) nasal spray Use 1 spray in one nostril as needed for seizures lasting longer than 2 minutes. May repeat dose in alternate nostril after 10 minutes based on response and tolerability. lamoTRIgine (LAMICTAL) 25 mg tablet Take 1 tablet by mouth two times a day. Week 1 and 2: 25 mg once per day. Week 3 and 4: 25 mg twice per day. Week 5: 25 mg AM, 50 mg PM, Week 6: 50 mg twice per day. Week 7: 50 mg AM, 75 mg PM, Week 8: 75 mg twice per day, Week 9: 75 mg AM, 100 mg PM, Week 10: 100 mg twice per day. Week 11: 100 mg AM, 125 mg PM, Week 12: 125 mg twice per day. Then continue 125 mg twice per day. folic acid 1 mg tablet Take 2 tablets by mouth once daily. metFORMIN ER (GLUCOPHAGE XR) 500 mg 24 hr tablet Take 1,000 mg by mouth daily with breakfast. No current facility-administered medications for this visit. 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 No family history on file. SOCIAL HISTORY: -Lives in [place], [place] -Patient lives alone? -Vocation: -Education: Some college -Cigarette, alcohol, substance use: Does not smoke, drinks about 4-5 drinks per week, no drug use -Functional status: independent in activities of daily living -Patient driving? No ROS as noted in HPI VITAL SIGNS: BP 114/68 (BP Site: Left Arm, BP Position: Sitting, BP Cuff Size: Large Adult) Pulse 62 Resp 18 Ht 152.4 cm (5') Wt 70.3 kg (155 lb) LMP 12/27/2023 (Exact Date) SpO2 98% BMI 30.27 kg/m Accompanied by: Her mom General Examination General appearance: Awake, alert, interactive, no acute distress, good nutritional status, normal development, well-groomed Lung: Unlabored breathing on room air Neurological Exam Mental Status Alert, fully oriented, attentive, with normal cognition, memory, speech and affect. Cranial Nerves Face symmetric Gait Casual gait normal. 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 This is an epilepsy triggered by light as demonstrated to day in EEG and lack of sleep. EEG today showed polyspikes generalized triggered by photic stimulation at 15 and 20 Hz. We discussed treatment options with Quentin and her mother: 1. Keppra is a very good medication for RAHEEL but Tona is struggling with depression so this medication has a potential for worsening her depression symptoms 2. Depakote will also beneficial for RAHEEL but will call weigh gain with very high probability and Quentin has already a BMI of 29.85 kg/m2 which is HIGH. 3. Vimpat will also help with RAHEEL and will not worsen depression or change her weight Future option: zonisamide or topiramate. We discussed lifestyle with epilepsy, length of treatment and driving. 11/13/23: Had a break through seizure 09/07. No clear cause. She is on wellbutrin. Discussed effect on seizure threshold and could consider trying alternative medicine with prescriber. Had a long discussion regarding women with epilepsy, future plans for children, and epilepsy medicines. Discussed several different options to try given break through seizure. She elected to trial lamotrigine because of safety profile for her future plans. She is aware that sometimes lamotrigine can worsen myoclonic jerks. If they worsen she will reach out to office to trial alternative option. She is aware of risk of rash and will reach out of is he develops rash. Seizure precautions. No driving until 6 months seizure free. 01/09/24: Had breakthrough seizure. Was only on 25 mg twice per day lamotrigine. Will continue titration. If too much side effect at full dose in combination with lacosamide, or continued seizures at full dose, will consider change in lacosamide to another medicine (possible zonisamide). Discussed factors which may exacerbate seizures. Discussed possible future options. PLAN: -Continue lacosamide 200 mg BID -Continue titration to lamotrigine 125 mg BID -If too much side effect from dual sodium agents at full dose, or continues seizures, will consider change in lacosamide to zonisamide -If insomnia with increased lamotrigine, could consider extended release formulation -Seizure precautions, no driving until at least 6 months seizure free -EEG long -Possible future EMU evaluation -Patient deferred referral back to sleep center -Follow up 3 months, sooner if needed Data reviewed as above including: electronic medical record Testing Ordered Long EEG Education The following issues were discussed with the patient on this visit and written instructions provided as below- Seizure precautions and safety, seizure first aide, when to seek emergency care. Counseling was provided to the patient that missed medications, addition of some new medications, use of alcohol or other substances, and sleep deprivation can lower the seizure threshold. Patient was advised to not drive until released by a physician. I discussed the risk of depression and psychological comorbidities in patients with epilepsy and when to seek help as well as the black box warning of all antiepileptic medications which can increase risk for suicidality. Women's health issues were addressed this visit- Patient was advised to take folic acid daily. Importance of contraception and potential teratogenicity of antiepileptic medications was discussed. Interaction of her medication with OCP was addressed. Further information regarding and contraception for women with epilepsy can be found at the [facility]. Patient was given my clinic contact information. Medical Management Continue current medications. I discussed the risks, benefits and alternatives of the medical plan with the patient. Questions were answered. The patient agreed with the plan as discussed. FOLLOW-UP: Return in about 3 months (around 04/10/2024). I spent a total of 20 minutes on the date of the service which included: preparing to see the patient [id number] patient care completing clinical documentation obtaining and/or reviewing separately obtained history performing a medically appropriate examination counseling and educating the patient/family/caregiver ordering medications, tests, or procedures Daisy De Leon DO cc: Primary Care Physician: No primary care provider on file. No primary provider on file. Referring: Patient: Ms. Quentin Covington9 [facility] [address] documented in this encounter [facility] 12-23-2023 Telephone encounter Note Seizure Call Last Visit: 11/13/[address] De Leon Next Visit: none scheduled Date and Time of seizure: 12/22/2023 around 4:30pm Seizure description: +LOC I did notice I was having a hard time paying attention to one thing. 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 I felt like I kept stuttering but no one said anything to me so I figured it wasn t bad. And it would just come and go. Duration: 3.5 minutes Witnessed: no Aura: no Last Seizure: 09/08/2023 TB: no UI: no Rescue Medication used: Nayzilam prescribed but pt is still waiting for it to be delivered ASM: LCM 200/200 LTG 50/50 - pt is titrating Triggers: Pt was tired. She has not been sleeping well. Back to [employer] [place]: yes Routed for review. Asuncion Garcia RN [facility] 12-23-2023 Miscellaneous Notes Seizure Call Last Visit: 11/13/[address] De Leon Next Visit: none scheduled Date and Time of seizure: 12/22/2023 around 4:30pm Seizure description: +LOC I did notice I was having a hard time paying attention to one thing. 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 I felt like I kept stuttering but no one said anything to me so I figured it wasn t bad. And it would just come and go. Duration: 3.5 minutes Witnessed: no Aura: no Last Seizure: 09/08/2023 TB: no UI: no Rescue Medication used: Nayzilam prescribed but pt is still waiting for it to be delivered ASM: LCM 200/200 LTG 50/50 - pt is titrating Triggers: Pt was tired. She has not been sleeping well. Back to [employer] [place]: yes Routed for review. Asuncion Garcia RN documented in this encounter [facility] 12-19-2023 Telephone encounter Note Images from the original note were not included. Pharmacy called and made aware. Asuncion Garcia RN [facility] 12-19-2023 Miscellaneous Notes Images from the original note were not included. Pharmacy called and made aware. Asuncion Garcia RN PA done via CM. (Hunter: [id number]) PA Rx #: [id number] Status: sent to plan. Asuncion Garcia RN Prior Authorization Needed: Received by: Fax Requested by (pharmacy name): [facility] Phone number: [phone] Name of medication: Nayzilam Strength and dosage: 5mgSig: Use 1 spray in one nostril as needed for seizures lasting longer than 2 minutes. Insurance company name and phone #: M HUNTER: [id number] Patient ID: PCN #: BIN#: Group #: Patient of Dr. De Leon Forwarded to nurse. documented in this encounter [facility] 12-19-2023 Telephone encounter Note PA done via CMM. (Hunter: [id number]) PA Rx #: [id number] Status: sent to plan. Asuncion Garcia RN [facility] 12-19-2023 Telephone encounter Note PDMP website checked and validated. All prescriptions have been APPROPRIATELY filled. No suspicious activity was identified. Meera Silva PA-C December 19, 2023 The following approved medication requests have been transmitted electronically. Requested Prescriptions Signed Prescriptions Disp Refills lacosamide (VIMPAT) 200 mg 180 tablet 1 Sig: Take 1 tablet by mouth two times a day for 180 days. 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 Authorizing Provider: MEERA SLIVA PA-C [facility] 12-19-2023 Miscellaneous Notes PDMP website checked and validated. All prescriptions have been APPROPRIATELY filled. No suspicious activity was identified. Meera Silva PA-C December 19, 2023 The following approved medication requests have been transmitted electronically. Requested Prescriptions Signed Prescriptions Disp Refills lacosamide (VIMPAT) 200 mg 180 tablet 1 Sig: Take 1 tablet by mouth two times a day for 180 days. 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 Authorizing Provider: MEERA SILVA PA-C Prescription Refill: PATIENT OUT OF MEDICATION Requested by: patient Please Call in Caller Contact Number: [phone] (home) [facility] Name: [facility]acy Number: [phone] Generic/ brand: generic 30 or 90 day supply requested: 30 day supply Last appointment: 11/13/23 Next Appointment: NONE Patient of Dr. De Leon [facility] documented in this encounter [facility] 12-19-2023 Telephone encounter Note Prescription Refill: PATIENT OUT OF MEDICATION Requested by: patient Please Call in Caller Contact Number: [phone] (home) [facility]acy Name: [facility]acy Number: [phone] Generic/ brand: generic 30 or 90 day supply requested: 30 day supply Last appointment: 11/13/23 Next Appointment: NONE Patient of Dr. De Leon Mail order [facility] 12-19-2023 Telephone encounter Note Prior Authorization Needed: Received by: Fax Requested by (pharmacy name): [facility] Phone number: [phone] Name of medication: Nayzilam Strength and dosage: 5mgSig: Use 1 spray in one nostril as needed for seizures lasting longer than 2 minutes. Insurance company name and phone #: CMM HUNTER: [id number] Patient ID: PCN #: BIN#: Group #: Patient of Dr. De Leon Forwarded to nurse. [facility] 12-18-2023 Telephone encounter Note PDMP website checked and validated. All prescriptions have been APPROPRIATELY filled. No suspicious activity was identified. Meera Silva PA-C December 18, 2023 The following approved medication requests have been transmitted electronically. Requested Prescriptions Signed Prescriptions Disp Refills midazolam (NAYZILAM) 5 mg/spray (0.1 mL) nasal spray 2 Each 1 Sig: Use 1 spray in one nostril as needed for seizures lasting longer than 2 minutes. May repeat dose in alternate nostril after 10 minutes based on response and tolerability. Authorizing Provider: MEERA SILVA PA-C [facility] 12-18-2023 Miscellaneous Notes PDMP website checked and validated. All prescriptions have been APPROPRIATELY filled. No suspicious activity was identified. Meera Silva PA-C December 18, 2023 The following approved medication requests have been transmitted electronically. Requested Prescriptions Signed Prescriptions Disp Refills midazolam (NAYZILAM) 5 mg/spray (0.1 mL) nasal spray 2 Each 1 Sig: Use 1 spray in one nostril as needed for seizures lasting longer than 2 minutes. May repeat dose in alternate nostril after 10 minutes based on response and tolerability. Authorizing Provider: MEERA SILVA PA-C Prescription Refill: Requested by: patient Please E-Scribe Caller Contact Number: Pharmacy Name: [facility] Pharmacy Number: [phone] Generic/ brand: 30 or 90 day supply requested: 90 Last appointment: 11-13-2023 Next Appointment: NONE Patient of Dr. De Leon documented in this encounter [facility] 12-18-2023 Telephone encounter Note Prescription Refill: Requested by: patient Please E-Scribe Caller Contact Number: Pharmacy Name: [facility] Pharmacy Number: [phone] Generic/ brand: 30 or 90 day supply requested: 90 Last appointment: 11-13-2023 Next Appointment: NONE Patient of Dr. De Leon [facility] 12-16-2023 History of Present illness Narrative Reason for Appointment: Patient ID: Quentin Bird is a 23 y.o. female who presents for medication follow up Patient presents today for Acute Visit. and Medication Follow Up appointment. MEDICATIONS Current Outpatient Medications Medication Instructions buPROPion XL (Wellbutrin XL) 150 MG 24 hr tablet TAKE ONE TABLET BY MOUTH EVERY DAY. DO NOT CRUSH, CHEW, OR SPLIT. buPROPion XL (WELLBUTRIN XL) 150 mg, Oral, Daily RT folic acid (Folvite) 1 MG tablet lacosamide (Vimpat) 200 mg tablet tablet 2 times daily ALLERGIES No Known Allergies PROBLEMS Active Ambulatory Problems Diagnosis Date Noted No Active Ambulatory Problems Resolved Ambulatory Problems Diagnosis Date Noted No Resolved Ambulatory Problems Past Medical History: Diagnosis Date Abnormal weight gain Anxiety Depression (CMS/HCC) Epilepsy (CMS/HCC) History of suicide attempt Mood changes PCOS (polycystic ovarian syndrome) Seizures (CMS/HCC) Urinary tract infection HISTORY PAST MEDICAL HISTORY SOCIAL HISTORY Past Medical History: Diagnosis Date Abnormal weight gain Anxiety Depression (CMS/HCC) Epilepsy (CMS/HCC) History of suicide attempt Mood changes PCOS (polycystic ovarian syndrome) Seizures (CMS/HCC) Urinary tract infection Social History Tobacco Use Smoking status: Never Smokeless tobacco: Never Vaping Use Vaping status: Never Used Substance Use Topics Alcohol use: Yes Comment: caffeine intake: 2 sodas daily Drug use: Never FAMILY HISTORY Family History Problem Relation Name Age of Onset No Known Problems Mother No Known Problems Father Cancer Paternal Grandfather Ashutosh Bird SURGICAL HISTORY History reviewed. No pertinent surgical history. REVIEW OF SYSTEMS Review of Systems: Review of Systems Constitutional: Negative for chills and fever. HENT: Negative for sore throat. Gastrointestinal: Negative for abdominal pain, constipation, diarrhea, nausea and vomiting. Genitourinary: Positive for vaginal discharge. Negative for dysuria, flank pain, frequency, hematuria, pelvic pain and urgency. Musculoskeletal: Negative for back pain. Skin: Negative for rash. Neurological: Negative for headaches. All other systems reviewed and are negative. OBJECTIVE Objective: Physical Exam Constitutional: Appearance: Normal appearance. She is normal weight. HENT: Head: Normocephalic. Cardiovascular: Rate and Rhythm: Normal rate. Pulses: Normal pulses. Pulmonary: Effort: Pulmonary effort is normal. Breath sounds: Normal breath sounds. Abdominal: Palpations: Abdomen is soft. Musculoskeletal: General: Normal range of motion. Neurological: General: No focal deficit present. Mental Status: She is alert and oriented to person, place, and time. Psychiatric: Mood and Affect: Mood normal. Behavior: Behavior normal. Thought Content: Thought content normal. Judgment: Judgment normal. Vitals and nursing note reviewed. Vitals: Estimated body mass index is 31.91 kg/m as calculated from the following: Height as of 10/28/23: 5'. Weight as of this encounter: 163 lb 6.4 oz. BP: 102/64 No LMP recorded. ASSESSMENT & PLAN ICD-10-CM 1. Follow-up encounter involving medication Z79.899 Patient presents with still having symptoms of BV despite taking flagyl. Cultures were obtained at last appointment. We will give pt nuvessa sample, one time vaginal medication to see if symptoms resolve. Patient will reschedule or call office if symptoms do not improve. Documented by CESIA Esquivel on behalf of: CESIA Esquivel documented in this encounter [facility] 11-19-2023 Telephone encounter Note BMV form signed by Dr. De Leon via [employer]. Copies sent to [employer], pt e-mail and BMV special unit via [employer]. Asuncion Garcia RN [facility] 11-19-2023 Miscellaneous Notes BMV form signed by Dr. De Leon via [employer]. Copies sent to [employer], pt e-mail and BMV special unit via [employer]. Asuncion Garcia RN BMV form received. Onset- 4 years (2019) Last SZ- 09/08/2023 BMV form is for ID purposes only. BMV form sent to Dr. De Leon to review and sign via [employer]. Asuncion Garcia RN Form received: From (agency / facility): BM[facility] agricultural equipment salesperson (if given): Quentin Bird Phone #: [phone] (home) Fax # : [phone] Information requested: Request for physician statement Patient of Dr. De Leon Forwarded to nurse. documented in this encounter [facility] 11-19-2023 Telephone encounter Note BMV form received. Onset- 4 years (2019) Last SZ- 09/08/2023 BMV form is for ID purposes only. BMV form sent to Dr. De Leon to review and sign via [employer]. Asuncion Garcia RN [facility] 11-19-2023 Telephone encounter Note Form received: From (agency / facility): [employer] agricultural equipment salesperson (if given): Quentin Bird Phone #: [phone] (home) Fax # : [phone] Information requested: Request for physician statement Patient of Dr. De Leon Forwarded to nurse. [facility] 11-14-2023 Telephone encounter Note BMV form received, pt did not fill out top portion and sign. MC message sent to pt, in this encounter. Asuncion Garcia RN [facility] 11-14-2023 Miscellaneous Notes BMV form received, pt did not fill out top portion and sign. MC message sent to pt, in this encounter. Asuncion Garcia RN documented in this encounter [facility] 11-13-2023 Daisy Kelley DO - 11/13/2023 4:32 PM EDT Lamotrigine titration schedule ADULTS Monotherapy or polytherapy with other non-enzyme inducers/inhibitors Lamotrigine 25 mg pills Week Morning # of pills (25 mg/pill) Evening # of pills (25 mg/pill) Total daily dose Week 1 & 2 0 1 25 mg Week 3 & 4 1 1 50 mg Week 5 1 2 75 mg Week 6 2 2 100 mg Week 7 2 3 125 mg Week 8 3 3 150 mg Week 9 3 4 175 mg Week 10 4 4 200 mg Week 11 4 5 225 mg Week 12 5 5 250 mg Then if doing well contact office for updated prescription. Watch for any new skin rash, skin blisters, redness/blistering in lips or around eyes. Call us and notify in case of these adverse effects. You should be seen by a doctor if you notice these changes. If determined to be medication induced, you may need an alternate medicine. Continue lacosamide 200 mg twice per day Continue folic acid 2 mg daily SEIZURE PRECUATIONS to follow for 6 months after any seizure Please continue to practice seizure precautions and first aid. -No driving. -Please do not climb to high places, such as rooftops, up trees or mountain climbing. -When near water, you should be supervised by an adult or person who is aware of risk of seizures, for example during tub baths, swimming, boating or fishing. -A helmet should be worn when riding a bike. First Aid for a grand mal seizure: -Remain calm and do not panic, call for assistance if needed. -Lower the person safely to the ground and loosen any tight clothing. -Place the person in a side-lying position so any saliva or vomit will easily drain out of the mouth. Actively seizing people are at a increased risk of choking on their saliva or vomit. Do not put any objects such as a tongue depressor or fingers into the mouth. Protect the persons head from injury while they are on their side. -Time the seizure from start to finish so you know how long it lasted (most grand mal seizures are no more than 1 or 2 minutes long). If the seizure is continuing longer than 5 minutes, call the ambulance at 911 for transportation to the nearest Emergency Room. -After a grand mal seizure, people are very sleepy and tired for several minutes or even a couple of hours. They may also complain of headache, nausea and may vomit. Please remember: -Call your doctor if you feel that the severity or number of seizures has changed from baseline. -If you have several grand mal seizures without waking up in-between, please notify your doctor. Seizure safety during sleep: -Always take anti-epileptic medications as prescribed by your doctor. -Objects near the bed may cause injury if someone has a seizure is prone to falling out of bed. Move heavy furniture, floor lamps, night stands and other dangerous objects away from the bed. -Mattresses and pillows should be firm and not soft. All stuffed animals, toys and other objects should be removed from the bed. Blankets can be layered but should be thin, down comforters may be too soft. -Keep the bed as low to the ground as possible. Some patients with night time seizures may sleep with their mattress on the floor. Others may pad the floor with mats (such as exercise mats used in workout facilities) to pad the floor. -During sleep, keep the bedroom door cracked open so someone can hear if you are having a seizure. Never lock the bedroom door. Some people choose to use baby monitors to observe for seizures at night. -We ask the you keep a record of the seizures you or your child is having. Please do this in the way that works the best for you. We would like to know the number of seizures per day including the date of the seizures, the length of time the seizure lasts, and the intensity of the seizure. If this is a different type of seizure than what you or your child normally has, please document a description and call your doctor. - Also, videos are always helpful. If the seizures are changing in any way, please try to record them on video if possible. This can be done on your cell phone or via a video recorder. This will help when you meet with your doctor. documented in this encounter [facility] 11-13-2023 Note HNO ID: [id number] Author: DAISY DE LEON, DO Service: ? Author Type: Physician Type: Progress Notes Filed: 11/19/2023 09:49 Note Text: [facility] Patient Name: Quentin BANEGAS Date of : 2000 INITIAL EPILEPSY CLINIC NOTE 11/13/2023 3:20 PM CHIEF COMPLAINT: New Patient (New NI Patient ) HISTORY OF PRESENT ILLNESS Ms. Bird is a 23 year old female seen in [facility] for initial consultation. Handedness: Age of onset: Seizure History and Evolution Quentin Bird is a 23 year old left handed woman (has a left handed sister and both grandpas left handed) with a past medical history of RAHEEL, anxiety and depression that presents here today for transfer to adult epilepsy care. She presents here today with her mom hSaylee. September 11 2019 (around age 19), Quentin had her first seizure. Quentin was asleep in a chair and her sister noticed a body jerk on Quentin. When mother arrived, Quentin was blue and she was convulsing and foaming at the mouth. EMS arrived and took her to the local hospital. She got fluids and for a CT scan. Postictal was confusion and lost of memory for 3 hours. Quentin has not recollection of the seizure or what she has done before the seizure or in previous days before the seizure. Short term memory was truly affected. She could talk after the seizure but memory was impaired. Seizure occurred out of sleep. Quentin reports not aura. In hindsight they realized that she was having a lot of staring off into space. She would snap out of it if you should call her name. Now concerned she was having seizures. She was started on a medicine around October 2023. She was started on lacosamide. Mother reported that they received an alert from Quentin's iwatch of a tachycardia on 159-160s at 3:15 am but not seizure was observed. Quentin has been reported excessive tiredness since she had the seizures and she is sweating very easily since she had the seizure. This can happen inside or outside. Sleep is 8-9 hours with no interruptions. She is also taking naps if she not busy. Quentin has 2 jobs and she plays soccer. 11/13/23: She does not think the lacosamide is working well for her anymore. Has noticed that the jerks are more frequently. Dropping things. Feeling like she is out of her body. She has not been on any medicines other than lacosamide. Most of her generalized seizures have been out of sleep. Has only been a couple while awake. Started on lacosamide 100 mg twice per day. Went 2.5 years without having one. Then later increased for seizure. August 2023 it was increased for seizure. She is currently on lacosamide 200 mg twice per day. She does not know if her last medicine increase helped, did not see a noticeable difference. She is taking extra medicines, one lacosamide 200 mg, 3 or 4 times a month because she is feeling like she is going to have seizure. 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 Currently holding off because of the last seizure. She feels like her memory is horrible since her first seizure. She lives at home with her mom currently. She takes metformin for possible PCOS. She takes folic acid 2 mg daily. She would like to have kids eventually. Further in the future. Not currently on any type of control. She is currently on wellbutrin 150 mg daily. She has been on this for several years. She has had pretty severe depression in the past. Was on one medicine and had an attempt. Interval Seizure History She is currently seeing a PCP at [facility]. Total # of Current Anti-seizure Medications: Side Effects to Current Anti-seizure Medications: Seizure Frequency at First Visit: Longest Seizure-free Interval: Hx of generalized tonic-clonic seizures: Yes Tongue bite: Yes Urine or Bowel Incontinence: No Triggers: Sleep deprivation is a major trigger Memory complaints: She feels her memory is horrible Significant Injuries from Seizures: She has burned herself Driving: No Highest Level of Education: Some college Current Vocation: Working three jobs CURRENT OUTPATIENT ANTISEIZURE MEDICATIONS (as of the start of the encounter) lacosamide (VIMPAT) 200 mg (Taking) Take 1 tablet by mouth two times a day. 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 midazolam (NAYZILAM) 5 mg/spray (0.1 mL) nasal spray Use 1 spray in one nostril as needed for seizures lasting > 2 minutes. May repeat dose in alternate nostril after 10 minutes based on response and tolerability. Prior Anti-seizure Therapies: Trial Adequacy: Max Daily Dose Achieved: Side Effects: Effectiveness: Comments: Lacosamide Comorbidities: Episode Description: SEIZURE TYPE 1: GTC Onset: 17 Description: see HPI Triggers: none Loss of awareness: Duration: Frequency: Last occ (more content not included)... [facility] 11-13-2023 History of Present illness Narrative [facility] Patient Name: Quentin BANEGAS Date of : 2000 INITIAL EPILEPSY CLINIC NOTE 11/13/2023 3:20 PM CHIEF COMPLAINT: New Patient (New NI Patient ) HISTORY OF PRESENT ILLNESS Ms. Bird is a 23 year old female seen in [facility] for initial consultation. Handedness: Age of onset: Seizure History and Evolution Quentin Bird is a 23 year old left handed woman (has a left handed sister and both grandpas left handed) with a past medical history of RAHEEL, anxiety and depression that presents here today for transfer to adult epilepsy care. She presents here today with her mom Shaylee. September 11 2019 (around age 19), Quentin had her first seizure. Quentin was asleep in a chair and her sister noticed a body jerk on Quentin. When mother arrived, Quentin was blue and she was convulsing and foaming at the mouth. EMS arrived and took her to the local hospital. She got fluids and for a CT scan. Postictal was confusion and lost of memory for 3 hours. Quentin has not recollection of the seizure or what she has done before the seizure or in previous days before the seizure. Short term memory was truly affected. She could talk after the seizure but memory was impaired. Seizure occurred out of sleep. Quentin reports not aura. In hindsight they realized that she was having a lot of staring off into space. She would snap out of it if you should call her name. Now concerned she was having seizures. She was started on a medicine around October 2023. She was started on lacosamide. Mother reported that they received an alert from Quentin's iwatch of a tachycardia on 159-160s at 3:15 am but not seizure was observed. Quentin has been reported excessive tiredness since she had the seizures and she is sweating very easily since she had the seizure. This can happen inside or outside. Sleep is 8-9 hours with no interruptions. She is also taking naps if she not busy. Quentin has 2 jobs and she plays soccer. 11/13/23: She does not think the lacosamide is working well for her anymore. Has noticed that the jerks are more frequently. Dropping things. Feeling like she is out of her body. She has not been on any medicines other than lacosamide. Most of her generalized seizures have been out of sleep. Has only been a couple while awake. Started on lacosamide 100 mg twice per day. Went 2.5 years without having one. Then later increased for seizure. August 2023 it was increased for seizure. She is currently on lacosamide 200 mg twice per day. She does not know if her last medicine increase helped, did not see a noticeable difference. She is taking extra medicines, one lacosamide 200 mg, 3 or 4 times a month because she is feeling like she is going to have seizure. 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 Currently holding off because of the last seizure. She feels like her memory is horrible since her first seizure. She lives at home with her mom currently. She takes metformin for possible PCOS. She takes folic acid 2 mg daily. She would like to have kids eventually. Further in the future. Not currently on any type of control. She is currently on wellbutrin 150 mg daily. She has been on this for several years. She has had pretty severe depression in the past. Was on one medicine and had an attempt. Interval Seizure History She is currently seeing a PCP at [facility]. Total # of Current Anti-seizure Medications: Side Effects to Current Anti-seizure Medications: Seizure Frequency at First Visit: Longest Seizure-free Interval: Hx of generalized tonic-clonic seizures: Yes Tongue bite: Yes Urine or Bowel Incontinence: No Triggers: Sleep deprivation is a major trigger Memory complaints: She feels her memory is horrible Significant Injuries from Seizures: She has burned herself Driving: No Highest Level of Education: Some college Current Vocation: Working three jobs CURRENT OUTPATIENT ANTISEIZURE MEDICATIONS (as of the start of the encounter) lacosamide (VIMPAT) 200 mg (Taking) Take 1 tablet by mouth two times a day. 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 midazolam (NAYZILAM) 5 mg/spray (0.1 mL) nasal spray Use 1 spray in one nostril as needed for seizures lasting > 2 minutes. May repeat dose in alternate nostril after 10 minutes based on response and tolerability. Prior Anti-seizure Therapies: Trial Adequacy: Max Daily Dose Achieved: Side Effects: Effectiveness: Comments: Lacosamide Comorbidities: Episode Description: SEIZURE TYPE 1: GTC Onset: 17 Description: see HPI Triggers: none Loss of awareness: Duration: Frequency: Last occurred: Patient Entered Data: EPILEPSY SCORE 11/12/2023 8:42 PM 11/12/2023 8:41 PM 11/12/2023 8:41 PM First answer obtained - 04/22/2023 9:17 PM PHQ-9 SCORE - - - - EM 2 SCORE 1 [Negative Anxiety Screen] - - - EM 7 SCORE - - - - QOLIE-10 SCORE (0=worst; 100=best QoL - higher scores represent better function) - - - - LSSS SCORE (0- no seizures 100- most severe possible seizures) - - - - C-SSRS SCREEN - - - - On average, how many hours of sleep do you get in a 24-hour period? - 8 - - PROMIS Sleep Disturbance T-SCORE - - - 58 [mild] Have you been diagnosed with Sleep Apnea? 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 Current Outpatient Medications Medication Sig lacosamide (VIMPAT) 200 mg Take 1 tablet by mouth two times a day. 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 folic acid 1 mg tablet Take 2 tablets by mouth once daily. buPROPion XL (WELLBUTRIN XL) 150 mg 24 hr tablet Take 150 mg by mouth. metFORMIN ER (GLUCOPHAGE XR) 500 mg 24 hr tablet Take 1,000 mg by mouth daily with breakfast. midazolam (NAYZILAM) 5 mg/spray (0.1 mL) nasal spray Use 1 spray in one nostril as needed for seizures lasting > 2 minutes. May repeat dose in alternate nostril after 10 minutes based on response and tolerability. lamoTRIgine (LAMICTAL) 25 mg tablet Take 1 tablet by mouth two times a day. Week 1 and 2: 25 mg once per day. Week 3 and 4: 25 mg twice per day. Week 5: 25 mg AM, 50 mg PM, Week 6: 50 mg twice per day. Week 7: 50 mg AM, 75 mg PM, Week 8: 75 mg twice per day, Week 9: 75 mg AM, 100 mg PM, Week 10: 100 mg twice per day. Week 11: 100 mg AM, 125 mg PM, Week 12: 125 mg twice per day. Then continue 125 mg twice per day. No current facility-administered medications for this visit. ALLERGIES No Known Allergies PAST MEDICAL HISTORY Diagnosis Date Juvenile myoclonic epilepsy, not intractable, with status epilepticus ([facility]) 09/28/2020 Recurrent major depression in partial remission ([facility]) 09/28/2020 No past surgical history on file. No family history on file. SOCIAL HISTORY: -Lives in [place], [place] -Patient lives alone? -Vocation: Working three jobs -Education: Some college -Cigarette, alcohol, substance use: Does not smoke, drinks about 4-5 drinks per week, no drug use -Functional status: independent in activities of daily living -Patient driving? No Review of Systems Constitutional: Positive for fatigue. Negative for appetite change and recent unintentional weight change. HENT: Negative for drooling, hearing loss and trouble swallowing. Eyes: Negative for blurred vision and double vision. Respiratory: Negative for cough and shortness of breath. Cardiovascular: Negative for chest pain, leg swelling and palpitations. Gastrointestinal: Negative for abdominal pain, constipation, diarrhea, nausea and vomiting. Endo/Heme/Allergies: Negative for cold intolerance and heat intolerance. Genitourinary: Negative for difficulty urinating and kidney stones. Hematologic/Lymphatic: Negative for anemia and bruises/bleeds easily. Allergic/Immunologic: Negative for frequent infections. Musculoskeletal: Negative for arthralgias, back pain, myalgias, muscle weakness, neck pain and neck stiffness. Skin: Negative for diaphoresis and rash. VITAL SIGNS: BP 109/63 (BP Site: Right Arm, BP Position: Sitting, BP Cuff Size: Regular Adult) Pulse 86 Ht 152.4 cm (5') Wt 68 kg (150 lb) LMP 07/28/2023 (Exact Date) BMI 29.29 kg/m Accompanied by: Her mom Shaylee General Examination General appearance: Awake, alert, interactive, no acute distress, good nutritional status, normal development, well-groomed Lung: Unlabored breathing on room air Neurological Exam Mental Status Alert, fully oriented, attentive, with normal cognition, memory, speech and affect. Cranial Nerves Face symmetric Motor Examination and Coordination Nonfocal Sensation Sensation intact to light touch in bilateral face, arms and legs Gait Casual gait normal. 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 This is an epilepsy triggered by light as demonstrated to day in EEG and lack of sleep. EEG today showed polyspikes generalized triggered by photic stimulation at 15 and 20 Hz. We discussed treatment options with Quentin and her mother: 1. Keppra is a very good medication for RAHEEL but Tona is struggling with depression so this medication has a potential for worsening her depression symptoms 2. Depakote will also beneficial for RAHEEL but will call weigh gain with very high probability and Quentin has already a BMI of 29.85 kg/m2 which is HIGH. 3. Vimpat will also help with RAHEEL and will not worsen depression or change her weight Future option: zonisamide or topiramate. We discussed lifestyle with epilepsy, length of treatment and driving. 11/13/23: Had a break through seizure 09/07. No clear cause. She is on wellbutrin. Discussed effect on seizure threshold and could consider trying alternative medicine with prescriber. Had a long discussion regarding women with epilepsy, future plans for children, and epilepsy medicines. Discussed several different options to try given break through seizure. She elected to trial lamotrigine because of safety profile for her future plans. She is aware that sometimes lamotrigine can worsen myoclonic jerks. If they worsen she will reach out to office to trial alternative option. She is aware of risk of rash and will reach out of is he develops rash. Seizure precautions. No driving until 6 months seizure free. Classification Summary PLAN: -Continue lacosamide 200 mg BID -Will titrate onto lamotrigine, if worsening myoclonic jerks or rash patient will reach out to office to titrate to different medicine -Future options include zonisamide, topiramate -Discussed wellbutrin and seizure threshold -Continue folic acid 2 mg -Seizure precautions, no driving until at least 6 months seizure free(last sz 09/07) -Follow up 3-4 months, sooner if needed Data reviewed as above including: electronic medical record Education The following issues were discussed with the patient on this visit and written instructions provided as below- Seizure precautions and safety, seizure first aide, when to seek emergency care. Counseling was provided to the patient that missed medications, addition of some new medications, use of alcohol or other substances, and sleep deprivation can lower the seizure threshold. Patient was advised to not drive until released by a physician. I discussed the risk of depression and psychological comorbidities in patients with epilepsy and when to seek help as well as the black box warning of all antiepileptic medications which can increase risk for suicidality. Women's health issues were addressed this visit- Patient was advised to take folic acid daily. Importance of contraception and potential teratogenicity of antiepileptic medications was discussed. Interaction of her medication with OCP was addressed. Further information regarding and contraception for women with epilepsy can be found at the [facility]. Patient was given my clinic contact information. Medical Management Medication changes were discussed. I discussed the risks, benefits and alternatives of the medical plan with the patient. Questions were answered. The patient agreed with the plan as discussed. FOLLOW-UP: Return in about 3 months (around 02/12/2024). I spent a total of 50 minutes on the date of the service which included: preparing to see the patient completing clinical documentation [id number] patient care obtaining and/or reviewing separately obtained history performing a medically appropriate examination counseling and educating the patient/family/caregiver ordering medications, tests, or procedures Daisy De Leon DO cc: Primary Care Physician: No primary care provider on file. No primary provider on file. Referring: Patient: Ms. Quentin Bird [address] [facility] [id number] documented in this encounter [facility] 10-28-2023 History of Present illness Narrative Reason for Appointment: Patient ID: Quentin Bird is a 23 y.o. female who presents for Well Women Visit Patient presents today for Annual Exam. MEDICATIONS Current Outpatient Medications Medication Instructions buPROPion XL (WELLBUTRIN XL) 150 mg, Oral, Daily RT buPROPion XL (WELLBUTRIN XL) 150 mg, Oral, Daily, Do not crush, chew, or split. folic acid (Folvite) 1 MG tablet lacosamide (Vimpat) 200 mg tablet tablet 2 times daily metFORMIN (GLUCOPHAGE) 500 mg, Oral, Daily with breakfast metFORMIN XR (Glucophage-XR) 500 MG 24 hr tablet TAKE ONE TABLET BY MOUTH EVERY DAY metFORMIN XR (GLUCOPHAGE-XR) 1,000 mg, Oral, Daily with evening meal, Do not crush, chew, or split. ALLERGIES No Known Allergies PROBLEMS Active Ambulatory Problems Diagnosis Date Noted No Active Ambulatory Problems Resolved Ambulatory Problems Diagnosis Date Noted No Resolved Ambulatory Problems Past Medical History: Diagnosis Date Abnormal weight gain Anxiety Depression (CMS/HCC) Epilepsy (CMS/HCC) History of suicide attempt Mood changes PCOS (polycystic ovarian syndrome) Seizures (CMS/HCC) Urinary tract infection HISTORY PAST MEDICAL HISTORY SOCIAL HISTORY Past Medical History: Diagnosis Date Abnormal weight gain Anxiety Depression (CMS/HCC) Epilepsy (CMS/HCC) History of suicide attempt Mood changes PCOS (polycystic ovarian syndrome) Seizures (CMS/HCC) Urinary tract infection Social History Tobacco Use Smoking status: Never Smokeless tobacco: Never Vaping Use Vaping status: Never Used Substance Use Topics Alcohol use: Yes Comment: caffeine intake: 2 sodas daily Drug use: Never FAMILY HISTORY Family History Problem Relation Name Age of Onset No Known Problems Mother No Known Problems Father Cancer Paternal Grandfather Ashutosh Bird SURGICAL HISTORY History reviewed. No pertinent surgical history. REVIEW OF SYSTEMS Review of Systems: Review of Systems All other systems reviewed and are negative. OBJECTIVE Objective: Physical Exam Constitutional: Appearance: Normal appearance. She is well-developed. Genitourinary: Vulva normal. Cardiovascular: Rate and Rhythm: Normal rate and regular rhythm. Pulmonary: Effort: Pulmonary effort is normal. Breath sounds: Normal breath sounds. Abdominal: General: Bowel sounds are normal. There is no distension. Palpations: Abdomen is soft. Tenderness: There is no abdominal tenderness. There is no guarding or rebound. Musculoskeletal: General: No swelling. Normal range of motion. Right lower leg: No edema. Left lower leg: No edema. Neurological: Mental Status: She is alert and oriented to person, place, and time. Skin: General: Skin is warm and dry. Psychiatric: Mood and Affect: Mood normal. Behavior: Behavior normal. Vitals and nursing note reviewed. Exam conducted with a insurance rater present. Vitals: Estimated body mass index is 30.66 kg/m as calculated from the following: Height as of this encounter: 5'. Weight as of this encounter: 157 lb. BP: 118/78 Patient's last menstrual period was 10/23/2023. ASSESSMENT & PLAN ICD-10-CM 1. Well woman exam with routine gynecological exam Z01.419 Pap Smear 2. Insulin resistance E88.819 metFORMIN XR (Glucophage-XR) 500 MG 24 hr tablet Pt present today for her annual visit. Pt requested cx's to be done. Pap and cx's were preformed and collected by Jonathan Elizabeth. Pt is not on any b/c and declines to be put on any b/c. Pt is currently on metformin and is doing well with weight loss. Dr. Elizabeth did increase dosage to 1,000 mg tablet to begin taking to help with weight loss. Pt verbally understood and rx was sent to pharmacy. Documented by Lotus Philip MA on behalf of: Jonathan Elizabeth DO documented in this encounter [facility] 09-16-2023 Telephone encounter Note Spoke with PA department, no PA is needed. Sommer Carrillo RN [facility] 09-16-2023 Miscellaneous Notes Spoke with PA department, no PA is needed. Sommer Carrillo RN Prior Authorization Needed: Received by: Fax Requested by (pharmacy name): [facility] Phone number: [phone] Name of medication: LCM Strength and dosage: 200mg Take 1 tablet by mouth two times a day. 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 Insurance company name and phone #: CMM HUNTER: [id number] Patient ID: PCN #: BIN#: Group #: Patient of Dr. Simms Forwarded to nurse. documented in this encounter [facility] 09-16-2023 Telephone encounter Note Prior Authorization Needed: Received by: Fax Requested by (pharmacy name): [facility] Phone number: [phone] Name of medication: LCM Strength and dosage: 200mg Take 1 tablet by mouth two times a day. 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 Insurance company name and phone #: CMM HUNTER: [id number] Patient ID: PCN #: BIN#: Group #: Patient of Dr. Simms Forwarded to nurse. [facility] 09-10-2023 Telephone encounter Note Spoke to Ms. Bird and advised per Dr. Simms. She verbalized understanding and agrees with plan. Please file pending orders (extra pill for myoclonus added to script). Thank you. Routed to Dr. Holland James RN [facility] 09-10-2023 Miscellaneous Notes Spoke to Ms. Bird and advised per Dr. Simms. She verbalized understanding and agrees with plan. Please file pending orders (extra pill for myoclonus added to script). Thank you. Routed to Dr. Holland James RN We can increase the Vimpat to 200mg Po BID. Please discuss missing doses of medication with the patient. A pill box is important to keep track of the medications. Thanks Carla Chowdary MD Neuro Peds Epilepsy Care Coordination Post-seizure/Medication Concerns/Side Effects Date of service : September 09, 2023 Quentin Bird is a 22 year old. Last seen by Dr. Simms in office visit on 08/13/2023. Now ~ Ms. Bird reporting that she had tremors two weeks ago and took extra Vimpat as instructed and never turned into seizure. On 09/07, Quentin was sleeping and aunt heard choking sounds and found Quentin in seizure lasting approximately 2 minutes with whole body convulsions, face turned blue and tongue bite. No rescue given. Returned to baseline with fatigue. Confirmed no driving. States did sleep well night before seizure. Missed am dose of medication prior to seizure and took 2 tablets (300 mg) at bedtime. Current weight : 71 kg Current AEDs ( mg/kg/d) / recent drug level: Lacosamide 150 mg tab ~ 150 mg - 150 mg / Level on 02/01/2023 was 6.2 For rescue ~ Midazolam 5 mg spray Recent changes/side effects : Reporting seizure Main concern : Would like recommendation Routed to Dr. Holland James, RN documented in this encounter [facility] 09-09-2023 Telephone encounter Note We can increase the Vimpat to 200mg Po BID. Please discuss missing doses of medication with the patient. A pill box is important to keep track of the medications. Thanks Carla Chowdary MD [facility] 09-09-2023 Telephone encounter Note Neuro Peds Epilepsy Care Coordination Post-seizure/Medication Concerns/Side Effects Date of service : September 09, 2023 Quentin Bird is a 22 year old. Last seen by Dr. Simms in office visit on 08/13/2023. Now ~ Ms. Bird reporting that she had tremors two weeks ago and took extra Vimpat as instructed and never turned into seizure. On 09/07, Quentin was sleeping and aunt heard choking sounds and found Quentin in seizure lasting approximately 2 minutes with whole body convulsions, face turned blue and tongue bite. No rescue given. Returned to baseline with fatigue. Confirmed no driving. States did sleep well night before seizure. Missed am dose of medication prior to seizure and took 2 tablets (300 mg) at bedtime. Current weight : 71 kg Current AEDs ( mg/kg/d) / recent drug level: Lacosamide 150 mg tab ~ 150 mg - 150 mg / Level on 02/01/2023 was 6.2 For rescue ~ Midazolam 5 mg spray Recent changes/side effects : Reporting seizure Main concern : Would like recommendation Routed to Dr. Holland James RN [facility] 08-13-2023 Instructions Carla Rico MD - 08/13/2023 3:18 PM EDT PLAN: Tests/Labs: none Medications: Continue Vimpat 150mg by mouth twice a day. If you are having myoclonic seizures go to a safe place and take an extra pill of Vimpat. Continue the folic acid 2 pills every day with with a daily women multivitamin Seizures rescue plan: Nayzilam 1 spray in ONE nostril for seizures lasting more than 2 minutes. Return visit: Transition of care to adult epilepsy Mariah De Leon MD or Isabel Gil MD Call if seizures or myoclonic jerks in the hands. For difficulties initiating sleep try Lavender pill or chamomile tea and remember to put down the devices by 9pm. Yoga breathing exercising can be foun on YouTube and they will help you fall asleep as well. Carla Chowdary MD documented in this encounter [facility] 08-13-2023 Note HNO ID: [id number] Author: CARLA RICO MD Service: ? Author Type: Physician Type: Progress Notes Filed: 08/13/2023 19:51 Note Text: [facility] Section of Pediatric Epilepsy/Neurology Epilepsy Center, Neurological [place] Date of Service: 02/01/2023 RETURN VISIT NOTE HISTORY SINCE LAST VISIT: The patient has returned for follow-up regarding well controlled RAHEEL. 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 Quentin had a seizures on 01/19/2023 while at work. Per prior note: It lasted 1 minute and 30 seconds. No rescue medications. She fell forward in the ground. I saw the work place video in which Quentin walked with a plate of food and falls to the ground suddenly with a full body convulsion. Our team increased he Vimpat to 150mg BID. No side effects from the new dose of Vimpat. The seizures was proceeded by a cluster of myoclonic jerks. She has not noticed any further myoclonic jerks or any additional seizure. Medications: Vimpat 150mg BID, folic acid 2mg. She notes that she was previously on wellbutrin and stopped about 1 month ago. Side Effects: None reported She notes that she is driving as of the 6-month seizure-free date. She is in her second semester of college. She notes that she has had some trouble with focusing. She thinks that her sleep is still poor. She has trouble falling asleep but not staying asleep. She occasionally sleep walk and sleep talk. She is tired during the day. Mother has MECCA. She notes good mood since coming off of the Wellbutrin. Records reviewed: medical chart, previous clinic and test reports, and interim phone calls and notations. Routine EEG on September 2020 showed SWC generalized. Major health event/concerns since last visit: see HPI. Other Issues/Review of systems: 12/01 negative Side effects that could be medication related: none Previous antiepileptic medications trials: none DEVELOPMENT/SCHOOL/PSYCHOSOCIAL UPDATE: doing well at school Driving Status: no driving. Overall Sense of Well Being Since Last Visit: better Medications listed as of 02/01/2023 [SEE PLAN BELOW FOR CHANGES MADE TODAY]: Current Outpatient Medications Medication Sig folic acid 1 mg tablet Take 2 tablets by mouth once daily. lacosamide (VIMPAT) 150 mg tab Take 1 tablet by mouth two times a day for 180 days. buPROPion XL (WELLBUTRIN XL) 150 mg 24 hr tablet Take 150 mg by mouth. metFORMIN ER (GLUCOPHAGE XR) 500 mg 24 hr tablet midazolam (NAYZILAM) 5 mg/spray (0.1 mL) nasal spray Use 1 spray in one nostril as needed for seizures lasting > 2 minutes. May repeat dose in alternate nostril after 10 minutes based on response and tolerability. bacitracin zinc 500 unit/gram ointment Apply 1 Application to affected area. No current facility-administered medications for this visit. Vital Signs - 02/01/2023: BP 117/69 Pulse 73 Temp 36.4 ?C (97.6 ?F) Resp 20 Ht 152.4 cm (5') Wt 71.9 kg (158 lb 8.2 oz) LMP 07/28/2023 (Exact Date) SpO2 100% BMI 30.96 kg/m? . PHYSICAL EXAMINATION: General physical examination remains with in normal limits. Quentin is alert and active, and in no distress. Skin exam, ENT exam, neck exam, and extremities examination show no new findings of concern. NEUROLOGICAL EXAMINATION: Neurologic examination: MS: alert and responsive, language intact CN: PERRLA, EOMI, VFF, V1-V3 intact bilaterally, face symmetrical, hearing grossly intact bilaterally, palatal elevation and tongue protrusion midline, no dysarthria, bilateral neck rotation 5/5, shoulder shrug 5/5 Motor: 5/5 neck flexion and extension, 5/5 throughout all extremity muscle groups, nl tone and bulk, able to arise from a chair without using hands Sensory: intact LT in all 4 extremities Reflexes: 2+ bilateral biceps, triceps, brachioradialis, knees, and ankles; plantar responses downgoing bilaterally; no crossed adductors; no Aguilar's or Troemner's bilaterally, no clonus bilateral ankles Cerebellar: FTN, HTS intact bilaterally Gait: Casual gait intact DIAGNOSIS: well controlled Juvenile Myoclonic epilepsy. EPILEPSY CLASSIFICATION Juvenile Myoclonic Epilepsy Seizures: 1. 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 Her last seizure was in January 2023 when she had a GTC preceded by myoclonic seizures. Prior to that, she was seizure free from 09/10/2020 until 01/19/2023. She was increased to LCM 150mg BID which she has tolerated since. Her quality of sleep is an issue that was discussed prior with subsequent sleep evaluation concerning for insomnia. She notes that she has not yet followed u (more content not included)... [facility] 08-13-2023 History of Present illness Narrative [facility] Section of Pediatric Epilepsy/Neurology Epilepsy Center, Neurological [place] Date of Service: 02/01/2023 RETURN VISIT NOTE HISTORY SINCE LAST VISIT: The patient has returned for follow-up regarding well controlled RAHEEL. Possible family history of RAHEEL CHEMISTRY SPECIALIST, Bri Julian This is a 22 year old left handed female who was last seen by me on January 2023. Quentin had a seizures on 01/19/2023 while at work. Per prior note: It lasted 1 minute and 30 seconds. No rescue medications. She fell forward in the ground. I saw the work place video in which Quentin walked with a plate of food and falls to the ground suddenly with a full body convulsion. Our team increased he Vimpat to 150mg BID. No side effects from the new dose of Vimpat. The seizures was proceeded by a cluster of myoclonic jerks. She has not noticed any further myoclonic jerks or any additional seizure. Medications: Vimpat 150mg BID, folic acid 2mg. She notes that she was previously on wellbutrin and stopped about 1 month ago. Side Effects: None reported She notes that she is driving as of the 6-month seizure-free date. She is in her second semester of college. She notes that she has had some trouble with focusing. She thinks that her sleep is still poor. She has trouble falling asleep but not staying asleep. She occasionally sleep walk and sleep talk. She is tired during the day. Mother has MECCA. She notes good mood since coming off of the Wellbutrin. Records reviewed: medical chart, previous clinic and test reports, and interim phone calls and notations. Routine EEG on September 2020 showed SWC generalized. Major health event/concerns since last visit: see HPI. Other Issues/Review of systems: 12/01 negative Side effects that could be medication related: none Previous antiepileptic medications trials: none DEVELOPMENT/SCHOOL/PSYCHOSOCIAL UPDATE: doing well at school Driving Status: no driving. Overall Sense of Well Being Since Last Visit: better Medications listed as of 02/01/2023 [SEE PLAN BELOW FOR CHANGES MADE TODAY]: Current Outpatient Medications Medication Sig folic acid 1 mg tablet Take 2 tablets by mouth once daily. lacosamide (VIMPAT) 150 mg tab Take 1 tablet by mouth two times a day for 180 days. buPROPion XL (WELLBUTRIN XL) 150 mg 24 hr tablet Take 150 mg by mouth. metFORMIN ER (GLUCOPHAGE XR) 500 mg 24 hr tablet midazolam (NAYZILAM) 5 mg/spray (0.1 mL) nasal spray Use 1 spray in one nostril as needed for seizures lasting > 2 minutes. May repeat dose in alternate nostril after 10 minutes based on response and tolerability. bacitracin zinc 500 unit/gram ointment Apply 1 Application to affected area. No current facility-administered medications for this visit. Vital Signs - 02/01/2023: BP 117/69 Pulse 73 Temp 36.4 C (97.6 F) Resp 20 Ht 152.4 cm (5') Wt 71.9 kg (158 lb 8.2 oz) LMP 07/28/2023 (Exact Date) SpO2 100% BMI 30.96 kg/m . PHYSICAL EXAMINATION: General physical examination remains with in normal limits. Quentin is alert and active, and in no distress. Skin exam, ENT exam, neck exam, and extremities examination show no new findings of concern. NEUROLOGICAL EXAMINATION: Neurologic examination: MS: alert and responsive, language intact CN: PERRLA, EOMI, VFF, V1-V3 intact bilaterally, face symmetrical, hearing grossly intact bilaterally, palatal elevation and tongue protrusion midline, no dysarthria, bilateral neck rotation 5/5, shoulder shrug 5/5 Motor: 5/5 neck flexion and extension, 5/5 throughout all extremity muscle groups, nl tone and bulk, able to arise from a chair without using hands Sensory: intact LT in all 4 extremities Reflexes: 2+ bilateral biceps, triceps, brachioradialis, knees, and ankles; plantar responses downgoing bilaterally; no crossed adductors; no Aguilar's or Troemner's bilaterally, no clonus bilateral ankles Cerebellar: FTN, HTS intact bilaterally Gait: Casual gait intact DIAGNOSIS: well controlled Juvenile Myoclonic epilepsy. EPILEPSY CLASSIFICATION Juvenile Myoclonic Epilepsy Seizures: 1. 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 Her last seizure was in January 2023 when she had a GTC preceded by myoclonic seizures. Prior to that, she was seizure free from 09/10/2020 until 01/19/2023. She was increased to LCM 150mg BID which she has tolerated since. Her quality of sleep is an issue that was discussed prior with subsequent sleep evaluation concerning for insomnia. She notes that she has not yet followed up with psychology for CBTI. Her vitamin D level has been low prior (29 in January 2023) but she notes consistent use of a daily women's multivitamin. We discussed strategies to improve sleep with natural means. We also discussed transition of care to adult epilepsy. PLAN: Tests/Labs: none Medications: Continue Vimpat 150mg by mouth twice a day. If you are having myoclonic seizures go to a safe place and take an extra pill of Vimpat. Continue the folic acid 2 pills every day with with a daily women multivitamin Seizures rescue plan: Nayzilam 1 spray in ONE nostril for seizures lasting more than 2 minutes. Return visit: Transition of care to adult epilepsy Mariah De Leon MD or Isabel Gil MD Call if seizures or myoclonic jerks in the hands. For difficulties initiating sleep try Lavender pill or chamomile tea and remember to put down the devices by 9pm. Yoga breathing exercising can be foun on YouTube and they will help you fall asleep as well. The possible risks, benefits, and alternatives to this plan were discussed, including a possibility of breakthrough seizures or worsening with changes in medications. The family is advised to call my office or seek urgent care if there is any worsening or new symptom of concern. I again went over the general epilepsy education and seizure precautions with the family. I spent a total of 35 minutes on the date of the service which included preparing to see the patient, [id number] patient care, completing clinical documentation, obtaining and/or reviewing separately obtained history, counseling and educating the patient/family/caregiver, ordering medications, tests, or procedures, communicating with other HCPs (not separately reported), independently interpreting results (not separately reported), and communicating results to the patient/family/caregiver. Carla Chowdary M.D. Staff, Epilepsy Center/Neurology, Neurological [place] [facility], Mail code - [phone] [id number] CC: Records via digital FAX or [employer] To use this Smartlink, specify the provider ID whose address you want to display, e.g., .[email or web address][1 (where 1 is the provider ID). No referring provider defined for this encounter. Phone: N/A Fax: The family of Quentin Whiting [facility] [address] documented in this encounter [facility] 04-29-2023 Miscellaneous Notes Confirmed with pharmacy that refills available. Prescription refused. Mishel James, BRAYDEN documented in this encounter [facility] 04-29-2023 Note HNO ID: [id number] Author: THAO PAGAN MD Service: ? Author Type: Physician Type: Progress Notes Filed: 04/29/2023 15:25 Note Text: [facility] New Patient Evaluation PATIENT NAME: Quentin Bird DATE OF SERVICE: April 29, 2023 CONSULTING PROVIDER: Carla Chowdary [address] [facility] [address] REASON FOR CONSULT: Carla Chowdary sends the patient for an opinion about '22 yo female with Juvenile Myoclonic Epilepsy and sleep disorders,. Evaluate and make recommendations for treatment. . My findings and recommendations will be transmitted electronically via shared medical record to the consulting provider. HPI: Quentin Bird is a 22 year old female with hx of juvenile mycoclonic epilepsy here to establish care for night time awakenings and unrefreshed sleep, sleep walking and daytime sleepiness since 3 years PER PSG request: The patient is a 22 year old female with a history of snoring, multiple awakenings from sleep, daytime sleepiness, fatigue, sleep walking, sleep talking, nightmares, and seizures/convulsions in sleep. Expanded EEG is requested to evaluate possible nocturnal seizures PSG double study Sleep architecture: The study started at 21:39:12 and ended at 06:17:05. Total sleep time (TST) was 415 minutes resulting in a sleep efficiency of 80.4% (total recording time (TRT) = 516 m). There were 17 awakenings with a total time awake after sleep onset of 30.0 minutes. The sleep latency was 71.0 minutes and the REM latency was 75 minutes. The patient spent 71.2% of sleep time in the supine position. The sleep stage percentages were 1.1% stage N1, 57.8% stage N2, 15.8% stage N3 and 25.3% REM sleep. There were 75 arousals, resulting in an arousal index of 10.8. There were 72 stage shifts. 1. Abnormal overnight EEG due to the presence of 3-4 Hz spike wave complexes and polyspikes, generalized consistent with a genetic generalized epilepsy. No seizures were recorded. 2. No sleep related breathing disorder is present on this study. The apnea-hypopnea index (AHI) is within normal limits and significant oxygen desaturations did not occur. 3. REM sleep without atonia (RSWA) scoring was performed as requested by the ordering provider. The percentage of REM sleep epochs meeting criteria supportive of REM behavioral disorder (RBD) was 0.0%. This does not meet the current ICSD-3 recommended electrodiagnostic criteria for RBD (>27% of REM sleep epochs supports the diagnosis of RBD). Of note, the patient is taking Wellbutrin which could potentially unmask and/or trigger RBD. 4. The patient endorses symptoms suggestive of restless legs syndrome (RLS) on the pre-study questionnaire. As RLS remains a clinical diagnosis, further clinical correlation is advised. 5. Alpha-delta sleep and alpha intrusions were noted, which have been observed in the setting of certain medications, chronic pain syndromes and psychiatric disorders. Clinical correlation is advised. 6. If sleep apnea is strongly suspected, a repeat PSG may be indicated given night to night variability in sleep apnea and the possibility of a false negative study. 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 She has a hard time falling asleep. Time to fall asleep: 1 hour Wake time: 5-7 AM, without an alarm. 1 st night time awakening 3 am happens twice Night sweats, bathroom, thirsty, JAYLA 1 hour Stays in bed, uses phone, activities prior to falling asleep: uses phone, Naps: once a week, 2 hours, naps are refreshing 24 hours sleep: 6 hours On weekends: wake up 6AM, falls asleep and then gets out of bed by 10 AM but never feels refreshed when wake up at a later time Feels most active in afternoon +ve sleep inertia if 4 hours of sleep, takes her 30 mins No morning headaches Preferred sleep position: prone Breathing disturbances and other behaviors during sleep: snoring. Denies night suh, no dream enactment, one episode of hitting boyfriend screeaming blankey one other episode she was found changing in clothes and woke up realizing she was in different outfit occurred a month ago, did not recall event, never occurred during childhood, denies sleep eating No hyponogogic or hynopompic halluciantions Denies sleep paralsysis Denies family hx of narcolepsy Last GTC jan 2023 increased vimpat 100 BID mg to 150mg BID by neurologist Bruxism: No GERD or aspiration: No Waking up with heart pounding or racing: No Anxiety or rumination: No-well controlled on wellbutrin ( since 2 years) has not noticed change in sleep pattern while being on it or vimpat No OTC meds, illicits, occasional alcohol She does not report having an urge to move the legs in the ortiz (more content not included)... [facility] 04-29-2023 Instructions Demetria Funk MD - 04/29/2023 1:29 PM EDT Images from the original note were not included. BEFORE GETTING INTO BED: -Establish a regular routine for bedtime. -Create a positive sleep environment. -Relax before getting into bed. -Avoid alcohol, smoking, caffeine for at least a few hours before bedtime. -Do not go to bed unless you are sleepy. WHILE IN BED: -Turn your clock around (or cover it) and use your alarm if needed. - If you can't fall asleep in 20 minutes (based on your internal sense of time), get out of bed and do something relaxing or boring (reading, listening to music, etc). Return to bed only when sleepy. -Use your bed only for sleep. N THE MORNING AND DURING THE DAYTIME: -Wake up at the same time every morning, even on weekends. -Avoid naps during the day. -Avoid caffeinated beverages and food in the evening. -Exercise regularly but not within 4 hours of bedtime. WHILE IN BED: -Turn your clock around (or cover it) and use your alarm if needed. - If you can't fall asleep in 20 minutes (based on your internal sense of time), get out of bed and do something relaxing or boring (reading, listening to music, etc). Return to bed only when sleepy. -Use your bed only for sleep. IN THE MORNING AND DURING THE DAYTIME: -Wake up at the same time every morning, even on weekends. -Avoid naps during the day. -Avoid caffeinated beverages and food in the evening. -Exercise regularly but not within 4 hours of bedtime. -Start Go to Sleep! which is a 6 week online program for cognitive behavior therapy for insomnia. The cost is $40. Use www.[employer] which to access the [facility] website to purchase the program ( go to Shop, and then Wellness Programs, and the find the Go! To Sleep product). -Please fill out 2 weeks of sleep logs prior to seeing behavorial sleep medicine-sleep psychologist documented in this encounter [facility] 04-29-2023 History of Present illness Narrative Images from the original note were not included. [facility] New Patient Evaluation PATIENT NAME: Quentin Bird DATE OF SERVICE: April 29, 2023 CONSULTING PROVIDER: Carla Chowdary [address] [facility] [address] REASON FOR CONSULT: Carla Chowdary sends the patient for an opinion about '22 yo female with Juvenile Myoclonic Epilepsy and sleep disorders,. Evaluate and make recommendations for treatment. . My findings and recommendations will be transmitted electronically via shared medical record to the consulting provider. HPI: Quentin Bird is a 22 year old female with hx of juvenile mycoclonic epilepsy here to establish care for night time awakenings and unrefreshed sleep, sleep walking and daytime sleepiness since 3 years PER PSG request: The patient is a 22 year old female with a history of snoring, multiple awakenings from sleep, daytime sleepiness, fatigue, sleep walking, sleep talking, nightmares, and seizures/convulsions in sleep. Expanded EEG is requested to evaluate possible nocturnal seizures PSG double study Sleep architecture: The study started at 21:39:12 and ended at 06:17:05. Total sleep time (TST) was 415 minutes resulting in a sleep efficiency of 80.4% (total recording time (TRT) = 516 m). There were 17 awakenings with a total time awake after sleep onset of 30.0 minutes. The sleep latency was 71.0 minutes and the REM latency was 75 minutes. The patient spent 71.2% of sleep time in the supine position. The sleep stage percentages were 1.1% stage N1, 57.8% stage N2, 15.8% stage N3 and 25.3% REM sleep. There were 75 arousals, resulting in an arousal index of 10.8. There were 72 stage shifts. 1. Abnormal overnight EEG due to the presence of 3-4 Hz spike wave complexes and polyspikes, generalized consistent with a genetic generalized epilepsy. No seizures were recorded. 2. No sleep related breathing disorder is present on this study. The apnea-hypopnea index (AHI) is within normal limits and significant oxygen desaturations did not occur. 3. REM sleep without atonia (RSWA) scoring was performed as requested by the ordering provider. The percentage of REM sleep epochs meeting criteria supportive of REM behavioral disorder (RBD) was 0.0%. This does not meet the current ICSD-3 recommended electrodiagnostic criteria for RBD (>27% of REM sleep epochs supports the diagnosis of RBD). Of note, the patient is taking Wellbutrin which could potentially unmask and/or trigger RBD. 4. The patient endorses symptoms suggestive of restless legs syndrome (RLS) on the pre-study questionnaire. As RLS remains a clinical diagnosis, further clinical correlation is advised. 5. Alpha-delta sleep and alpha intrusions were noted, which have been observed in the setting of certain medications, chronic pain syndromes and psychiatric disorders. Clinical correlation is advised. 6. If sleep apnea is strongly suspected, a repeat PSG may be indicated given night to night variability in sleep apnea and the possibility of a false negative study. 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 She has a hard time falling asleep. Time to fall asleep: 1 hour Wake time: 5-7 AM, without an alarm. 1 st night time awakening 3 am happens twice Night sweats, bathroom, thirsty, JAYLA 1 hour Stays in bed, uses phone, activities prior to falling asleep: uses phone, Naps: once a week, 2 hours, naps are refreshing 24 hours sleep: 6 hours On weekends: wake up 6AM, falls asleep and then gets out of bed by 10 AM but never feels refreshed when wake up at a later time Feels most active in afternoon +ve sleep inertia if 4 hours of sleep, takes her 30 mins No morning headaches Preferred sleep position: prone Breathing disturbances and other behaviors during sleep: snoring. Denies night suh, no dream enactment, one episode of hitting boyfriend screeaming blankey one other episode she was found changing in clothes and woke up realizing she was in different outfit occurred a month ago, did not recall event, never occurred during childhood, denies sleep eating No hyponogogic or hynopompic halluciantions Denies sleep paralsysis Denies family hx of narcolepsy Last GTC jan 2023 increased vimpat 100 BID mg to 150mg BID by neurologist Bruxism: No GERD or aspiration: No Waking up with heart pounding or racing: No Anxiety or rumination: No-well controlled on wellbutrin ( since 2 years) has not noticed change in sleep pattern while being on it or vimpat No OTC meds, illicits, occasional alcohol She does not report having an urge to move the legs in the evening (when resting) that is accompanied or caused by uncomfortable and/or unpleasant sensations in the legs. She has not been told that she has leg kicking during sleep. Excessive fatigue is a problem. for 3 years. There is a history of head injury concussion 2018 prior to the start of daytime sleepiness. WAKE-RELATED DETAILS She does have difficulty with memory or concentration. She denies falling asleep or dozing off when driving. She does drink 2 caffeinated beverages per day. She has lost 30 pounds since 2021. Patient Questionnaires Sleep Scores Sleep Questions 04/22/2023 Reason for visit: Difficulty falling or staying asleep or poor sleep quality, Excessive daytime sleepiness, Abnormal behaviors/movements during sleep Average hours slept in 24 hours: 7 Accidents or near accidents due to drowsy drivin PROMIS CAT Sleep Disturbance 04/22/2023 PROMIS Sleep Disturbance T-Score 58 (mild) PROMIS Sleep Disturbance Percentile 21% PHQ-9 04/22/2023 Score 4 PROMIS Global Health - (T-Scores - the mean of general population = 50. Five points is a clinically meaningful difference.) 04/22/2023 Physical T-Score 44.9 Mental T-Score 41.1 [place] Sleepiness Scale Sitting and Reading? high chance of dozing (3) Watching TV? slight chance of dozing (1) Sitting inactive in a public place (e.g a theater or a meeting) no chance of dozing (0) As a passenger in a car for an hour without a break? slight chance of dozing (1) Lying down to rest in the afternoon when circumstances permit? high chance of dozing (3) Sitting and talking to someone? no chance of dozing (0) Sitting quietly after lunch without alcohol? no chance of dozing (0) In a car, while stopped for a few minutes in traffic? no chance of dozing (0) Total Score NORMAL (8) PAST TREATMENTS: None PRIOR SLEEP STUDIES: See above OTHER RELEVANT LABS AND STUDIES: Vitamin D 25 Hydroxy 31.0 - 80.0 ng/mL 29.0 Low 26.0 Low CM Component Ref Range & Units 2 yr ago TSH 0.37 - 6.00 uIU/mL 2.01 T4, free 0.61 - 1.60 ng/dL 0.94 PAST MEDICAL HISTORY Diagnosis Date Juvenile myoclonic epilepsy, not intractable, with status epilepticus (HCC) 09/28/2020 Recurrent major depression in partial remission (HCC) 09/28/2020 No past surgical history on file. ACTIVE PROBLEM LIST Juvenile Myoclonic Epilepsy, Not Intractable, With Status Epilepticus (Hcc) Recurrent Major Depression in Partial Remission (Hcc) Allergies As of Date: 04/29/2023 (No Known Allergies) Fully Assessed 04/29/2023 CURRENT MEDICATIONS: folic acid 1 mg tablet Take 2 tablets by mouth once daily. lacosamide (VIMPAT) 150 mg tab Take 1 tablet by mouth two times a day for 180 days. buPROPion XL (WELLBUTRIN XL) 150 mg 24 hr tablet Take 150 mg by mouth. metFORMIN ER (GLUCOPHAGE XR) 500 mg 24 hr tablet midazolam (NAYZILAM) 5 mg/spray (0.1 mL) nasal spray Use 1 spray in one nostril as needed for seizures lasting > 2 minutes. May repeat dose in alternate nostril after 10 minutes based on response and tolerability. bacitracin zinc 500 unit/gram ointment Apply 1 Application to affected area. Prior Hypersomnia/Narcolepsy Medications (20 years) Some values may be hidden. Unless noted otherwise, only the newest values recorded on each date are displayed. Hypersomnia/Narcolepsy Medications No data to display. Prior Insomnia Medications (last 20 years) Some values may be hidden. Unless noted otherwise, only the newest values recorded on each date are displayed. Insomnia Medications escitalopram oxalate (LEXAPRO) 10 mg tablet Dose: Starting date: 09/13/2020 Ending date: 02/01/2023 (Discontinued) midazolam (NAYZILAM) 5 mg/spray (0.1 mL) nasal spray Dose: Use 1 spray in one nostril as needed for seizures. May repeat dose in alternate nostril after 10 minutes based on response and tolerability. Starting date: 09/28/2020 Ending date: 10/10/2020 (Discontinued) midazolam (NAYZILAM) 5 mg/spray (0.1 mL) nasal spray Dose: Use 1 spray in one nostril as needed for seizures lasting > 2 minutes. May repeat dose in alternate nostril after 10 minutes based on response and tolerability. Starting date: 10/10/2020 Ending date: 06/06/2021 (Discontinued) midazolam (NAYZILAM) 5 mg/spray (0.1 mL) nasal spray Dose: Use 1 spray in one nostril as needed for seizures lasting > 2 minutes. May repeat dose in alternate nostril after 10 minutes based on response and tolerability. Starting date: 06/06/2021 Ending date: 02/01/2023 (Discontinued) midazolam (NAYZILAM) 5 mg/spray (0.1 mL) nasal spray Dose: Use 1 spray in one nostril as needed for seizures lasting > 2 minutes. May repeat dose in alternate nostril after 10 minutes based on response and tolerability. Starting date: 02/01/2023 Ending date: 02/01/2024 Medication marked as long-term Review of Systems Negtaive except for as mentioned above SOCIAL HISTORY: Social History Tobacco Use Smoking status: Never Smokeless tobacco: Never FAMILY HISTORY: No family history on file. Sleep apnea sister PHYSICAL EXAMINATION: Vital Signs: BP 104/70 Pulse 70 Ht 152.4 cm (5') Wt 71.8 kg (158 lb 4.8 oz) LMP 06/03/2021 (Exact Date) BMI 30.92 kg/m PHYSICAL EXAM: General appearance: alert oriented ENT : Nasal congestion absent, Nasal valve incompetence absent. Posterior airspace: [place] tongue position 1, retrognathia absent. Overbite absent. High arched palate absent. Tongue scalloping/ridging absent. Chest: Regular S1 and S2, Lungs clear to auscultation IMPRESSION/PLAN: G47.00 Frequent nocturnal awakening (primary encounter diagnosis) G40.B01 Juvenile myoclonic epilepsy, not intractable, with status epilepticus (HCC) F51.12 Insufficient sleep syndrome R53.81, R53.83 Malaise and fatigue G47.00 Insomnia, unspecified type Z72.821 Poor sleep hygiene Quentin Bird is a 22 year old female with hx of juvenile mycoclonic epilepsy here to establish care for night time awakenings, unrefreshed sleep daytime fatigue, 1 episode of paarsomnia and 3 events of dream enactment (never occurred in childhood and no safety concerns) concern for sleep initiation and sleep maintenance insomnia since last 3 years. ESS 8, PHQ 9-4, anixety/depression controlled on wellbutrin, seziures controlled on meds recently increased vimpat dose last Jan 2023. Has not noticed association of symptoms ever since being on vimpat ( now on increased dose of 150mg BID) or since being on wellbutrin. Believe her fatigue is multifactorial- poor sleep hygiene leading to sleep iniation insomnia leading to insufficient sleep, PSG without RBD, MECCA or nocturnal seizures vs vit d deficiency/other chronic medical problems. Nocturnal awakenings not related to RLS, MECCA, anxiety, nocturnal seizures medical issues like asthma/GERD. Less concern clinically for narcolepsy 1 vs 2, isolated episodes of dream enactment/parasomnia probably related to insufficient sleep.Less concern for circadian rhythm disorder. Believe patient would benefit from counseling with sleep hygiene , will hold off objective evidence of insufficient sleep with Actigraphy, in interim will place referral for BSM. -Discussed hyperarousal state and underlying causes of insomnia. Discussed treatment options including medications and CBT. -Start Go to Sleep! which is a 6 week online program for cognitive behavior therapy for insomnia. The cost is $40. Use www.[employer] which to access the [facility] website to purchase the program ( go to Shop, and then Wellness Programs, and the find the Go! To Sleep product). -Consult to behavior sleep medicine specialist for individual or group cognitive behavioral therapy for insomnia ( CBTi ). -sleep logs 2 weeks prior to BSM Follow up in 6 months in the office. Recommend scheduling this appointment now to ensure the best time for you. Plan disucssed with Dr. Karol Funk MD Sleep Medicine Fellow PGY-7 [facility] STAFF PHYSICIAN NOTE OF PERSONAL INVOLVEMENT IN CARE I have reviewed the history and examination obtained and documented by the fellow/resident and I personally participated in the hunter components. I have discussed the case and management of the patient's care. Revisions to the above note are included as needed or in bold or below. Problem List Items Addressed This Visit Juvenile myoclonic epilepsy, not intractable, with status epilepticus (HCC) Other Visit Diagnoses Frequent nocturnal awakening - Primary Relevant Orders CONSULT TO BEHAVIORAL SLEEP MEDICINE INDIVIDUAL TREATMENT Insufficient sleep syndrome Relevant Orders CONSULT TO BEHAVIORAL SLEEP MEDICINE INDIVIDUAL TREATMENT Malaise and fatigue Insomnia, unspecified type Relevant Orders CONSULT TO BEHAVIORAL SLEEP MEDICINE INDIVIDUAL TREATMENT Poor sleep hygiene Relevant Orders CONSULT TO BEHAVIORAL SLEEP MEDICINE INDIVIDUAL TREATMENT In summary primary complaint of nonrefreshing sleep for a long time. Unclear if started after initial seizure onset and starting Vimpat or not. Patient does not have clear recall but reports it might be after that. From primary sleep disorder standpoint polysomnogram with EEG was good quality and did not show MECCA, periodic limb movements in sleep. Does not have other sleep disrupting medical conditions including nocturnal coughing, eczema, allergies, persistent seizures, pain syndrome or environmental issues leading to awakenings. Does not report any prior partners reporting snoring. Therefore I doubt MECCA can explain this. In the future if no other reasons are found, can consider repeat polysomnogram. Has shortened amount of sleep secondary to chronic sleep onset and maintenance insomnia. Which I think is contributing but not primary reason for her nonrefreshing sleep. Therefore we will treat that. Discussed cognitive behavioral therapy for insomnia starting with 2 weeks of sleep logs and behavioral sleep medicine referral. Patient agreeable. Patient wants less medications which is good. Discussed not to start any hypnotics today. Other etiology for nonrefreshing sleep should be continued to be evaluated by primary care provider or other providers. On a separate note, has 3 episodes of parasomnia like activity. Polysomnogram with RBD montage did not show features of RBD. Appears more so non-REM parasomnia. Did not have it for some time. No safety issues. Therefore we will just monitor. Return in about 6 months (around 10/30/2023). Thao Pagan MD, MPH Staff, [facility] Schedule appointment or sleep studies: [phone] or [phone] option 1 Office: [phone] ext. 5 This clinical note has been produced using speech recognition software and may contain errors related to that system including grammar, punctuation, spelling and words and phrases that may be inappropriate. Medical Decision Making: Problems: Moderate: 1+ chronic illnesses with change Data: Unique test result(s) reviewed: 1 Risk: Moderate: Moderate risk from testing/treatment Medical Decision Making Level: 4 - Moderate This clinical note has been produced using speech recognition software and may contain errors related to that system including grammar, punctuation, spelling and words and phrases that may be inappropriate. documented in this encounter [facility] 04-22-2023 Note HNO ID: [id number] Author: ?, ?, ? Service: ? Author Type: ? Type: Progress Notes Filed: 04/22/2023 05:18 Note Text: Sleep Study Check-In Documentation Date: April 22, 2023 Name: Quentin Bird Patient was accompanied by Self. Location: Latex allergy: No Tape allergy: No Current medications were reviewed with the patient:Yes Sleep aid taken by patient for the sleep study: [place] of sleep aid: Not Applicable Procedure was explained to the patient and all questions were answered. PAP treatment discussed and shown to patient: Yes Knowledge Program (KP): KP was not completed in epic by patient and accepted Study type: Double study-Polysomnogram with extra EEG/ RBD Adverse Event: No (If yes create a new abstract) Comments: Patient was advised to follow up with their ordering provider regarding test results Carrie Alvares [facility] 04-22-2023 History of Present illness Narrative Sleep Study Check-In Documentation Date: April 22, 2023 Name: Quentin Bird Patient was accompanied by Self. Location: Latex allergy: No Tape allergy: No Current medications were reviewed with the patient:Yes Sleep aid taken by patient for the sleep study: [place] of sleep aid: Not Applicable Procedure was explained to the patient and all questions were answered. PAP treatment discussed and shown to patient: Yes Knowledge Program (KP): KP was not completed in epic by patient and accepted Study type: Double study-Polysomnogram with extra EEG/ RBD Adverse Event: No (If yes create a new abstract) Comments: Patient was advised to follow up with their ordering provider regarding test results Carrie Alvares April 19, 2023 Standing PSG Orders signed in the last 90 days None Future PSG Orders signed in the last 90 days Ordered Auth. provider CONSULT TO SLEEP MEDICINE - ADULT [[id number]] 02/01/23 Carla Rico MD Assoc. diagnoses: Juvenile myoclonic epilepsy, not intractable, 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.B01] Q: Does consulting provider have [facility] access?: A: Yes Comment: 22 yo female with Juvenile Myoclonic Epilepsy and sleep disorders,. Evaluate and make recommendations for treatment. All Prior Sleep Studies (past 365 days) Some values may be hidden. Unless noted otherwise, only the newest values recorded on each date are displayed. Sleep Studies CONSULT TO SLEEP MEDICINE - ADULT Future Expected: Expires: 02/01/24 BMI Readings from Last 2 Encounters: 02/01/23 : 28.67 kg/m 06/06/21 : 34.45 kg/m (97%, Z= 1.87)* * Growth percentiles are based on [facility] (Girls, 2-20 Years) data. PAST MEDICAL HISTORY Diagnosis Date Juvenile myoclonic epilepsy, not intractable, with status epilepticus (HCC) 09/28/2020 Recurrent major depression in partial remission (HCC) 09/28/2020 The medical record was reviewed to determine if the proposed sleep study conforms to the [facility] Practice Parameters for the Indications for Polysomnography and Related Procedures, or if the sleep study is indicated for other reasons. Indications for study: MECCA suspected with comorbid medical or sleep disorders: Abnormal/injurious sleep activity(seizures, parasomnias, limb movements) Sleep study to be performed: Double study-Polysomnogram with extra EEG Special instructions: Target REM/supine sleep Add EtCO2 or Transcutaneous CO2 if available Add upper limb leads for suspected parasomnia Seizure precautions Mily Sluga - Sleep Medicine Staff Note: I have read the above protocol, edited as needed, and agree to the plan. Patrick Logan III, PhD 10:59 AM, 04/19/2023 April 15, 2023 An order has been received for PSG with EEG (Double Study) from Carla Holt MD, a B. [facility] Staff. Visit prep complete. Comments :No The sleep study is scheduled for 04/20. Insurance: Payor: AN[employer]M / Plan: BLUE ACCESS PPO / Product Type: PPO / Payer/Plan Subscr Sex Relation Sub. Ins. ID Effective Group Num 1. MILAD - AMERICO* VENKATA BIRD [birth year]1968 Male Child [id number] [birth year] [id number] [id number] 2. AETNA - AETNA* UY RAWLS [birth year]1975 Male Child [id number] [birth year] [id number] [id number] Tremayne Crespo documented in this encounter [facility] 03-27-2023 Miscellaneous Notes Date of service: March 27, 2023 Quentin Bird is a 22 year old Last seen by Dr. Simms on 02/01/23 Now requesting folic acid refill Prescription appropriate, please file and document electronically. Thank you. Routed to Dr. Holland James RN Prescription Refill: Patient has new insurance and must use [facility]. Requested by: patient Please E-Scribe Caller Contact Number: my chart Pharmacy Name: [facility] Number: [id number] Generic/ brand: generic 30 or 90 day supply requested: 90 Last appointment: 02/01/23 Next Appointment: 08/13/[address] Simms documented in this encounter [facility] 02-05-2023 Miscellaneous Notes Spoke to Ms. Bird and advised per Dr. Simms. She verbalized understanding and agrees with plan. Mishel James RN Called Ms. Rawls, did not receive answer. Message left, will await call-back. Mishel James RN ----- Message from Carla Chowdary MD sent at 02/05/2023 7:59 AM EST ----- Please let the patient know that the Vitamin D is low so I recommend she takes a daily vitamin D3 5000IU daily. She can find this over the counter. Thanks Carla Chowdary MD documented in this encounter [facility] 02-01-2023 Note HNO ID: [id number] Author: Carla Rico MD Service: ? Author Type: Physician Type: Progress Notes Filed: 02/01/2023 4:03 PM Note Text: order for double study PSG and EEG and sleep consultation Carla Chowdary MD [facility] 02-01-2023 Note HNO ID: [id number] Author: Carla Rico MD Service: ? Author Type: Physician Type: Progress Notes Filed: 02/01/2023 4:38 PM Note Text: [facility] Section of Pediatric Epilepsy/Neurology Epilepsy Center, Neurological [place] Date of Service: 02/01/2023 RETURN VISIT NOTE HISTORY SINCE LAST VISIT: The patient has returned for follow-up regarding well controlled RAHEEL. 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 Quentin had a seizures on 01/19/2023 while at work. It lasted 1 minute and 30 seconds. No rescue medications. She felt forward in the ground. I saw the work place video in which Quentin walk with a plate of food and falls to the ground suddenly with a full body convulsion. Our team increased he Vimpat to 150mg BID. No side effects from the new dose of Vimpat. The seizures was proceeded by a cluster of myoclonic jerks. Quentin had a burn during the seizure as she was carrying hot foot. No driving. Completed a first semester of college. She has difficulties initiating and maintaining sleep. She occasionally sleep walk and sleep talk. She is tired during the day. Mother has MECCA. depression is managed with bupropion. no longer taking lexapro Records reviewed: medical chart, previous clinic and test reports, and interim phone calls and notations. Routine EEG on September 2020 showed SWC generalized. Major health event/concerns since last visit: see HPI.. Other Issues/Review of systems: 12/01 negative Side effects that could be medication related: none Previous antiepileptic medications trials: none DEVELOPMENT/SCHOOL/PSYCHOSOCIAL UPDATE: doing well at school Driving Status: no driving. Overall Sense of Well Being Since Last Visit: better Medications listed as of 02/01/2023 [SEE PLAN BELOW FOR CHANGES MADE TODAY]: Current Outpatient Medications Medication Sig buPROPion XL (WELLBUTRIN XL) 150 mg 24 hr tablet Take 150 mg by mouth. bacitracin zinc 500 unit/gram ointment Apply 1 Application to affected area. metFORMIN ER (GLUCOPHAGE XR) 500 mg 24 hr tablet lacosamide (VIMPAT) 50 mg tab Take 1 tablet by mouth two times a day. Take along with 100 mg tablets twice daily = total dose 150 mg twice daily folic acid 1 mg tablet Take 2 tablets by mouth once daily. lacosamide (VIMPAT) 100 mg tab Take 1 tablet by mouth two times a day for 180 days. rh-bv-fnkl-FA-Ca carb-vit K (WOMEN'S MULTIVITAMIN) 18 mg-400 mcg- 500 mg-50 mcg tab Take 1 tablet by mouth once daily. midazolam (NAYZILAM) 5 mg/spray (0.1 mL) nasal spray Use 1 spray in one nostril as needed for seizures lasting > 2 minutes. May repeat dose in alternate nostril after 10 minutes based on response and tolerability. escitalopram oxalate (LEXAPRO) 10 mg tablet No current facility-administered medications for this visit. Vital Signs - 02/01/2023: BP 117/70 Pulse 67 Ht 154.5 cm (5' 0.83 ) Wt 68.4 kg (150 lb 14.4 oz) LMP 06/03/2021 (Exact Date) SpO2 100% BMI 28.67 kg/m? . PHYSICAL EXAMINATION: General physical examination remains with in normal limits. Quentin is alert and active, and in no distress. Skin exam, ENT exam, neck exam, and extremities examination show no new findings of concern. NEUROLOGICAL EXAMINATION: Neurological examination remains with in normal limits. DIAGNOSIS: well controlled Juvenile Myoclonic epilepsy. EPILEPSY CLASSIFICATION Juvenile Myoclonic Epilepsy Seizures: 1. 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 She was seizure free from 09/10/2020 until 01/19/2023. We identify some issues with sleep that may contribute to her seizure relapse. Plan to refer to sleep medicine and get a double study PSG + EEG to rule out seep apneas. We are also checking the level of Vimpat and vitamin D. Plan to adjust medications as needed. We discussed reproductive erik and bone health. PLAN: Tests/Labs: levels of Vimpat and Vitamin D Consultation with sleep medicine with PSG and EEG Medications: Continue Vimpat 150mg by mouth twice a day. We will call you with instructions to adjust medication. Continue the folic acid 2 pills every day with with a daily women multivitamin seizures rescue plan: Nayzilam 1 spray in ONE nostril for seizures lasting more than 2 minutes. 4. Ok to take bupropion for depression. Return visit: [facility] in 2023 Call if seizures or myoclonic jerks in the hands The possible risks, benefits, and alternatives to this plan were discussed, including a possibility of breakthrough seizures or worsening with changes in medications. The family is advised to call my office or seek urgent care if there is any worsening or new symptom of concern. (more content not included)... [facility] 02-01-2023 Instructions Carla Rico MD - 02/01/2023 4:06 PM EST PLAN: Tests/Labs: levels of Vimpat and Vitamin D Consultation with sleep medicine with PSG and EEG Medications: Continue Vimpat 150mg by mouth twice a day. We will call you with instructions to adjust medication. Continue the folic acid 2 pills every day with with a daily women multivitamin seizures rescue plan: Nayzilam 1 spray in ONE nostril for seizures lasting more than 2 minutes. 4. Ok to take bupropion for depression. Return visit: [facility], [place] in 2023 Call if seizures or myoclonic jerks in the hands Carla Chowdary MD documented in this encounter [facility] 02-01-2023 History of Present illness Narrative order for double study PSG and EEG and sleep consultation Carla Chowdary MD documented in this encounter [facility] 02-01-2023 History of Present illness Narrative [facility] Section of Pediatric Epilepsy/Neurology Epilepsy Center, Neurological [place] Date of Service: 02/01/2023 RETURN VISIT NOTE HISTORY SINCE LAST VISIT: The patient has returned for follow-up regarding well controlled RAHEEL. 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 Quentin had a seizures on 01/19/2023 while at work. It lasted 1 minute and 30 seconds. No rescue medications. She felt forward in the ground. I saw the work place video in which Quentin walk with a plate of food and falls to the ground suddenly with a full body convulsion. Our team increased he Vimpat to 150mg BID. No side effects from the new dose of Vimpat. The seizures was proceeded by a cluster of myoclonic jerks. Quentin had a burn during the seizure as she was carrying hot foot. No driving. Completed a first semester of college. She has difficulties initiating and maintaining sleep. She occasionally sleep walk and sleep talk. She is tired during the day. Mother has MECCA. depression is managed with bupropion. no longer taking lexapro Records reviewed: medical chart, previous clinic and test reports, and interim phone calls and notations. Routine EEG on September 2020 showed SWC generalized. Major health event/concerns since last visit: see HPI.. Other Issues/Review of systems: 12/01 negative Side effects that could be medication related: none Previous antiepileptic medications trials: none DEVELOPMENT/SCHOOL/PSYCHOSOCIAL UPDATE: doing well at school Driving Status: no driving. Overall Sense of Well Being Since Last Visit: better Medications listed as of 02/01/2023 [SEE PLAN BELOW FOR CHANGES MADE TODAY]: Current Outpatient Medications Medication Sig buPROPion XL (WELLBUTRIN XL) 150 mg 24 hr tablet Take 150 mg by mouth. bacitracin zinc 500 unit/gram ointment Apply 1 Application to affected area. metFORMIN ER (GLUCOPHAGE XR) 500 mg 24 hr tablet lacosamide (VIMPAT) 50 mg tab Take 1 tablet by mouth two times a day. Take along with 100 mg tablets twice daily = total dose 150 mg twice daily folic acid 1 mg tablet Take 2 tablets by mouth once daily. lacosamide (VIMPAT) 100 mg tab Take 1 tablet by mouth two times a day for 180 days. dg-ce-ilch-FA-Ca carb-vit K (WOMEN'S MULTIVITAMIN) 18 mg-400 mcg- 500 mg-50 mcg tab Take 1 tablet by mouth once daily. midazolam (NAYZILAM) 5 mg/spray (0.1 mL) nasal spray Use 1 spray in one nostril as needed for seizures lasting > 2 minutes. May repeat dose in alternate nostril after 10 minutes based on response and tolerability. escitalopram oxalate (LEXAPRO) 10 mg tablet No current facility-administered medications for this visit. Vital Signs - 02/01/2023: BP 117/70 Pulse 67 Ht 154.5 cm (5' 0.83 ) Wt 68.4 kg (150 lb 14.4 oz) LMP 06/03/2021 (Exact Date) SpO2 100% BMI 28.67 kg/m . PHYSICAL EXAMINATION: General physical examination remains with in normal limits. Quentin is alert and active, and in no distress. Skin exam, ENT exam, neck exam, and extremities examination show no new findings of concern. NEUROLOGICAL EXAMINATION: Neurological examination remains with in normal limits. DIAGNOSIS: well controlled Juvenile Myoclonic epilepsy. EPILEPSY CLASSIFICATION Juvenile Myoclonic Epilepsy Seizures: 1. 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 She was seizure free from 09/10/2020 until 01/19/2023. We identify some issues with sleep that may contribute to her seizure relapse. Plan to refer to sleep medicine and get a double study PSG + EEG to rule out seep apneas. We are also checking the level of Vimpat and vitamin D. Plan to adjust medications as needed. We discussed reproductive erik and bone health. PLAN: Tests/Labs: levels of Vimpat and Vitamin D Consultation with sleep medicine with PSG and EEG Medications: Continue Vimpat 150mg by mouth twice a day. We will call you with instructions to adjust medication. Continue the folic acid 2 pills every day with with a daily women multivitamin seizures rescue plan: Nayzilam 1 spray in ONE nostril for seizures lasting more than 2 minutes. 4. Ok to take bupropion for depression. Return visit: michael deshpande in 2023 Call if seizures or myoclonic jerks in the hands The possible risks, benefits, and alternatives to this plan were discussed, including a possibility of breakthrough seizures or worsening with changes in medications. The family is advised to call my office or seek urgent care if there is any worsening or new symptom of concern. I again went over the general epilepsy education and seizure precautions with the family. I spent a total of 35 minutes on the date of the service which included preparing to see the patient, jqmf-[id number] patient care, completing clinical documentation, obtaining and/or reviewing separately obtained history, counseling and educating the patient/family/caregiver, ordering medications, tests, or procedures, communicating with other HCPs (not separately reported), independently interpreting results (not separately reported), and communicating results to the patient/family/caregiver. Carla Chowdary M.D. Staff, Epilepsy Center/Neurology, Neurological [place] [facility], Mail code - [id number] [phone] [address] CC: Records via digital FAX or [employer] To use this Smartlink, specify the provider ID whose address you want to display, e.g., .PROVADDR[1 (where 1 is the provider ID). No referring provider defined for this encounter. Phone: N/A Fax: The family of Quentin Whiting [facility] [address] documented in this encounter [facility] 01-21-2023 Miscellaneous Notes The following approved medication requests have been transmitted electronically. Requested Prescriptions Signed Prescriptions Disp Refills lacosamide (VIMPAT) 50 mg tab 180 tablet 1 Sig: Take 1 tablet by mouth two times a day. Take along with 100 mg tablets twice daily = total dose 150 mg twice daily Authorizing Provider: MICHELL GONZALEZ MD Spoke to Ms. Bird and advised per Dr. Gonzalez. She verbalized understanding and agrees with plan. Please file pending orders. Thank you. Routed to Dr. Lisa James RN May offer to increase lacosamide by 50 mg/d q1 week from 200 to 300 mg/d. Recommend to avoid alcohol and sleep deprivation. Michell Goznalez MD Neuro Peds Epilepsy Care Coordination Post-seizure/Medication Concerns/Side Effects Date of service : January 21, 2023 Quentin Bird is a 22 year old. Last seen by Dr. Simms in office visit on 06/06/2021. Now ~ Ms. Bird reporting seizure on 01/19 lasting about 2 minutes occurring at work with whole body convulsions. Reports sleeping at baseline, no illness. Reports alcohol use night before seizure but has drank before with no seizures. Returned to baseline with no additional seizures. Notified of no driving for six months. States has loss weight with current weight at 150 pounds. Current weight : 82 kg Current AEDs ( mg/kg/d) / recent drug level: Lacosamide 100 mg tab ~ 100 mg - 100 mg / Level on 12/01/2020 was 4.4 For rescue ~ Midazolam 5 mg spray Recent changes/side effects : Reporting seizure Follow up appointment scheduled for 02/01/2023 Reports current weight at 150 pounds Main concern : Would like recommendation Routed to Dr. Gonzalez (covering) Mishel James RN Seizure activity: Name of Caller : Quentin Bird Relationship to patient: Self Contact phone number: [phone] Date of seizure: 01/19/23 Duration: 2 minutes Back to Baseline (Yes/No): yes Emergency treatment needed (Yes/No): yes Patient of Dr. Simms documented in this encounter [facility] 11-28-2022 Miscellaneous Notes Date of service: November 28, 2022 -Prescription appropriate, please file and document electronically. Thank you. -Routed to Dr. Holland Davenport LPN Prescription Refill: Requested by: My chart Please E Scribe Caller Contact Number: [phone] (home) Pharmacy Name: [facility] Pharmacy Number: [phone] Generic/ brand: 30 or 90 day supply requested: 90 Last appointment: 06/06/2021 Next Appointment: none fwd to schedulers Patient of Dr. Simms documented in this encounter [facility] 12-13-2021 Miscellaneous Notes New pharmacy .-Prescription appropriate. Please file, document electronically, and CLOSE encounter. Thank you. -Routed to Dr. Holland Call RN Prescription Refill: NEW PHARMACY REQUEST; PLEASE RE-APPROVE Requested by: pharmacy Please E-Scribe Caller Contact Number: Pharmacy Name: [facility] Number: [phone] Generic/ brand: 30 or 90 day supply requested: 90 Last appointment: 06/06/21 Next Appointment: none Patient of Dr. Simms documented in this encounter [facility] 10-27-2021 Miscellaneous Notes Reviewed and refilled the medications noted below. Requested Prescriptions Pending Prescriptions Disp Refills tt-jr-ineg-FA-Ca carb-vit K (WOMEN'S MULTIVITAMIN) 18 mg-400 mcg- 500 mg-50 mcg tab 365 tablet 0 Sig: Take 1 tablet by mouth once daily. folic acid 1 mg tablet 180 tablet 3 Sig: Take 2 tablets by mouth once daily. lacosamide (VIMPAT) 100 mg tab 180 tablet 3 Sig: Take 1 tablet by mouth twice daily. Tania Jauregui,BAlirioS, M.D Pediatric Epileptologist Epilepsy Center, Neu[facility] [place] [address], [address] [place], [place] [id number] Date of service: October 27, 2021 Quentin Bird is a 21 year old Last seen by Dr. Simms on 10/27/21 Now requesting medication refill Prescription appropriate, please file and document electronically. Thank you. Routed to Dr. Chapman (covering) Mishel James RN documented in this encounter [facility] 06-08-2021 Miscellaneous Notes Received approval for Nayzilam from [employer]. Approval Dates: 06/08/21-06/08/22. REF #: [id number] Approval uploaded to [employer]. Images from the original note were not included. PA submitted via [employer]. Mishel James RN Prior Authorization Needed: Received by: Fax Requested by (pharmacy name): [facility] ([facility]) Phone number: Name of medication: Nayzilam Strength and dosage: 5mg Insurance company name and phone #: [employer] Patient ID: [id number] Patient of Dr. Simms documented in this encounter [facility] 06-05-2021 Miscellaneous Notes Date of service: June 05, 2021 Quentin Bird is a 20 year old Last seen by Dr. Simms on 12/01/2020 Now requesting folic acid refill Prescription appropriate, please file and document electronically. Thank you. Routed to Dr. Holland James RN Prescription Refill: NEW MAIL ORDER Requested by: pharmacy Please E-Scribe Caller Contact Number: Pharmacy Name: [facility] Pharmacy Number: Generic/ brand: 30 or 90 day supply requested: 90 Last appointment: 12/01/20 Next Appointment: 06/06/[address] Simms documented in this encounter [facility] 06-01-2021 Miscellaneous Notes Date of service: June 01, 2021 Quentin iBrd is a 20 year old Last seen by Dr. Simms on 12/01/2020 Now requesting lacosamide refill - NEEDS RESENT TO MAIL ORDER PHARMACY Prescription appropriate, please file and document electronically. Thank you. Routed to Dr. Holland James RN Prescription Refill: NEW PHARMACEY REQUEST; PLEASE RE-APPROVE. Requested by: pharmacy Please E-Scribe Caller Contact Number: Pharmacy Name: [facility] Pharmacy Number: [phone] Generic/ brand: 30 or 90 day supply requested: 90 Last appointment: 12/01/2020 Next Appointment: 06/06/[address] Simms documented in this encounter [facility] 05-31-2021 Miscellaneous Notes Duplicate request. Mishel James RN documented in this encounter [facility] 05-30-2021 Miscellaneous Notes Date of service: May 30, 2021 Quentin Bird is a 20 year old Last seen by Dr. Simms on 12/01/2020 Now requesting lacosamide refill Prescription appropriate, please file and document electronically. Thank you. Routed to Dr. Holland James RN Prescription Refill: Requested by: pharmacy Please E-Scribe Caller Contact Number: Pharmacy Name: [facility] Number: [phone] Generic/ brand: 30 or 90 day supply requested: 90 Last appointment: 12/01/2020 Next Appointment: 06/06/[address] Simms documented in this encounter 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 Diagnosis Juvenile myoclonic epilepsy, not intractable, 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 [facility]* Diagnosis Juvenile myoclonic epilepsy, not intractable, 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 MECCA (obstructive sleep apnea) Obstructive sleep apnea (adult) (pediatric) [facility]* Diagnosis Juvenile myoclonic epilepsy, not intractable, 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 Vitamin D deficiency Unspecified vitamin D deficiency 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* Diagnosis Follow-up encounter involving medication [facility] noteNo assessment information availableFost[facility] Work Phone: evalupsmgn note* Diagnosis Juvenile myoclonic epilepsy, not intractable, 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 [facility] Diagnosis Well woman exam with routine gynecological exam Routine gynecological examination Insulin resistance Other abnormal glucose Screen for STD (sexually transmitted disease) Screening examination for venereal disease documented [facility] encounter [facility]* Diagnosis Juvenile myoclonic epilepsy, not intractable, 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 [facility] Diagnosis Juvenile myoclonic epilepsy, not intractable, 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 [facility]* Diagnosis Juvenile myoclonic epilepsy, not intractable, 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 [facility] Diagnosis Juvenile myoclonic epilepsy, not intractable, 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 [facility] Diagnosis Wellness examination- Primary Juvenile myoclonic epilepsy, not intractable, with status epilepticus (CMS/HCC) Tachycardia Unspecified tachycardia Screening for deficiency anemia Screening for other and unspecified deficiency anemia Screening for cardiovascular condition Screening for other and unspecified cardiovascular conditions Screening for thyroid disorder Screening for lipid disorders PCOS (polycystic ovarian syndrome) Polycystic ovaries Recurrent major depression in partial remission (HCC) (CMS/HCC) Major depressive disorder, recurrent episode, in partial or unspecified remission Anxiety and depression (CMS/HCC) documented in this encounter [facility]* Diagnosis Intractable juvenile myoclonic epilepsy without status epilepticus (CMS/HCC)- Primary documented in this encounter [facility]* Diagnosis BV (bacterial vaginosis)- Primary Unspecified vaginitis and vulvovaginitis Menorrhagia with irregular cycle documented in this encounter [facility]* Diagnosis Onset Date Resolution Status Admit Date RAHEEL (juvenile myoclonic epilepsy) acute August 27, 2024 12:29pm [facility] Work Phone: Evaluation note* Diagnosis STD exposure Sexually transmitted disease exposure Contact with or exposure to venereal diseases BV (bacterial vaginosis) Unspecified vaginitis and vulvovaginitis documented in this encounter [facility]* Diagnosis Vaginal discharge Leukorrhea, not specified as infective STD exposure Vaginal lesion Other specified noninflammatory disorder of vagina [facility] Additional Instructions Follow-up with your primary care doctor Return to ED follow-up worsening symptoms or [facility] Work Phone: Reason for referral (narrative)* Outpatient Procedure (Routine) - Pending Review Specialty Diagnoses / Procedures Referred By Myra salcedo Referred To [facility] Diagnoses Juvenile myoclonic epilepsy, not intractable, with status epilepticus (HCC) MECCA (obstructive sleep apnea) Procedures PSG WITH EEG (DOUBLE STUDY) POLYSOM 6/>YRS SLEEP W/CPAP 4/> ADDL NANCY ATTND EEG PHYS/QHP EA INCR>12HR<26HR AFTER 24HR W/VEEG Carla Rico MD [address] [place] [address] [place] [address] Referral ID Status Reason Start Date Expiration Date Visits Requested Visits Authorized [id number] Pending Review Auto-Generat ed Referral 3 03/02/2024 1 1 * Consult, Test, Treat (Routine) - Authorized Specialty Diagnoses / Procedures Referred By Myra salcedo Referred To Contact Diagnoses Juvenile myoclonic epilepsy, not intractable, with status epilepticus (HCC) Procedures CONSULT TO SLEEP MEDICINE - ADULT OFFICE/OUTPATIENT [facility] 60-74 MINUTES Carla Rico MD [address] [place] [address] Referral ID Status Reason Start Date Expiration Date Visits Requested Visits Authorized [id number] Authorized PCP Requested Referral 3 02/01/2024 1 1 [facility] for referral (narrative)* Outpatient Procedure (Routine) - Authorized Specialty Diagnoses / Procedures Referred By Myra salcedo Referred To Contact [facility] Diagnoses Juvenile myoclonic epilepsy, not intractable, with status epilepticus (HCC) Procedures EPIL EEG LONG EEG EXTENDED MONITORING 61-119 MINUTES ELECTROENCEPHALOGRAM REC COMA/SLEEP ONLY Daisy De Leon DO [address] [place] [address] Neu[facility] [place] [address] [place] [address] Referral ID Status Reason Start Date Expiration Date Visits Requested Visits Authorized [id number] Authorized Auto-Generat ed Referral 01/08/2025 1 1 [facility] for referral (narrative)No reason for referral information [facility] Work Phone: Summary Purpose Family History No Family History Records FoundNo Family History Records FoundNo Family History Records FoundNo Family History Records FoundNo Family History Records FoundNo Family History Records FoundNo Family History Records Found Advance Directives Advance Directive Response Recorded Date/ Time Advance Directives No June 13 11:29am Advance Directive Response Recorded Date/ Time Advance Directives No June 13 10:29am Chief Complaint and Reason for Visit Chief Complaint Urinary Tract Infect ion / UTI Reason for Visit Dysuria Chief Complaint Urinary Tract Infect ion / UTI Dysuria Reason for Visit Acute UTI (urinary t ract infection) Dysuria Chief Complaint ILL Chief Complaint z23 ILL Chief Complaint Admit Date z23 December 11, 2023 9 :00am ILL December 22, 2023 4 :54pm Seizure March 04, 2024 9 :06am Chief Complaint Admit Date ILL December 22, 2023 4 :54pm Seizure March 04, 2024 9 :06am difficulty keeping meds down February 1:17pm Chief Complaint Admit Date Seizure March 04, 2024 9 :06am difficulty keeping meds down February 1:17pm Z13.0 Z13.6 April 20, 2024 11:4 5am Chief Complaint Admit Date Seizure March 04, 2024 9 :06am difficulty keeping meds down February 1:17pm Z13.0 Z13.6 April 20, 2024 11:4 5am R00.0 R56.9 I49.1 R94.31 May 18 1:51pm Chief Complaint Admit Date Follow up for DMV ppw August 27, 2024 12 :29pm Reason for Visit Admit Date RAHEEL (juvenile myoclonic epilepsy) August 182024 12:29pm Additional Source Comments Source Comments (unrecognize d section and content) In the event this informatio n is protected by the Federal Confidentiality of Alcohol and Drug Abuse Patient Records regulations: The Federal rules restrict any use of the information to criminally investigate or prosecute any alcohol or drug abuse patient.[facility] the event this information is protected by the Federal Confidentiality of Alcohol and Drug Abuse Patient Records regulations: The Federal rules restrict any use of the information to criminally investigate or prosecute any alcohol or drug abuse patient.[facility] the event this information is protected by the Federal Confidentiality of Alcohol and Drug Abuse Patient Records regulations: The Federal rules restrict any use of the information to criminally investigate or prosecute any alcohol or drug abuse patient.[facility] the event this information is protected by the Federal Confidentiality of Alcohol and Drug Abuse Patient Records regulations: The Federal rules restrict any use of the information to criminally investigate or prosecute any alcohol or drug abuse patient.[facility] the event this information is protected by the Federal Confidentiality of Alcohol and Drug Abuse Patient Records regulations: The Federal rules restrict any use of the information to criminally investigate or prosecute any alcohol or drug abuse patient.[facility] the event this information is protected by the Federal Confidentiality of Alcohol and Drug Abuse Patient Records regulations: The Federal rules restrict any use of the information to criminally investigate or prosecute any alcohol or drug abuse patient.[facility] the event this information is protected by the Federal Confidentiality of Alcohol and Drug Abuse Patient Records regulations: The Federal rules restrict any use of the information to criminally investigate or prosecute any alcohol or drug abuse patient.[facility] the event this information is protected by the Federal Confidentiality of Alcohol and Drug Abuse Patient Records regulations: The Federal rules restrict any use of the information to criminally investigate or prosecute any alcohol or drug abuse patient.[facility] the event this information is protected by the Federal Confidentiality of Alcohol and Drug Abuse Patient Records regulations: The Federal rules restrict any use of the information to criminally investigate or prosecute any alcohol or drug abuse patient.[facility] the event this information is protected by the Federal Confidentiality of Alcohol and Drug Abuse Patient Records regulations: The Federal rules restrict any use of the information to criminally investigate or prosecute any alcohol or drug abuse patient.[facility] the event this information is protected by the Federal Confidentiality of Alcohol and Drug Abuse Patient Records regulations: The Federal rules restrict any use of the information to criminally investigate or prosecute any alcohol or drug abuse patient.[facility] the event this information is protected by the Federal Confidentiality of Alcohol and Drug Abuse Patient Records regulations: The Federal rules restrict any use of the information to criminally investigate or prosecute any alcohol or drug abuse patient.[facility] HospitalIn the event this information is protected by the Federal Confidentiality of Alcohol and Drug Abuse Patient Records regulations: The Federal rules restrict any use of the information to criminally investigate or prosecute any alcohol or drug abuse patient.[facility] HospitalIn the event this information is protected by the Federal Confidentiality of Alcohol and Drug Abuse Patient Records regulations: The Federal rules restrict any use of the information to criminally investigate or prosecute any alcohol or drug abuse patient.[facility] HospitalIn the event this information is protected by the Federal Confidentiality of Alcohol and Drug Abuse Patient Records regulations: The Federal rules restrict any use of the information to criminally investigate or prosecute any alcohol or drug abuse patient.[facility] HospitalIn the event this information is protected by the Federal Confidentiality of Alcohol and Drug Abuse Patient Records regulations: The Federal rules restrict any use of the information to criminally investigate or prosecute any alcohol or drug abuse patient.[facility] HospitalIn the event this information is protected by the Federal Confidentiality of Alcohol and Drug Abuse Patient Records regulations: The Federal rules restrict any use of the information to criminally investigate or prosecute any alcohol or drug abuse patient.[facility] HospitalIn the event this information is protected by the Federal Confidentiality of Alcohol and Drug Abuse Patient Records regulations: The Federal rules restrict any use of the information to criminally investigate or prosecute any alcohol or drug abuse patient.[facility] HospitalIn the event this information is protected by the Federal Confidentiality of Alcohol and Drug Abuse Patient Records regulations: The Federal rules restrict any use of the information to criminally investigate or prosecute any alcohol or drug abuse patient.[facility] HospitalIn the event this information is protected by the Federal Confidentiality of Alcohol and Drug Abuse Patient Records regulations: The Federal rules restrict any use of the information to criminally investigate or prosecute any alcohol or drug abuse patient.[facility] HospitalIn the event this information is protected by the Federal Confidentiality of Alcohol and Drug Abuse Patient Records regulations: The Federal rules restrict any use of the information to criminally investigate or prosecute any alcohol or drug abuse patient.[facility] HospitalIn the event this information is protected by the Federal Confidentiality of Alcohol and Drug Abuse Patient Records regulations: The Federal rules restrict any use of the information to criminally investigate or prosecute any alcohol or drug abuse patient.[facility] HospitalIn the event this information is protected by the Federal Confidentiality of Alcohol and Drug Abuse Patient Records regulations: The Federal rules restrict any use of the information to criminally investigate or prosecute any alcohol or drug abuse patient.[facility] HospitalIn the event this information is protected by the Federal Confidentiality of Alcohol and Drug Abuse Patient Records regulations: The Federal rules restrict any use of the information to criminally investigate or prosecute any alcohol or drug abuse patient.[facility] HospitalIn the event this information is protected by the Federal Confidentiality of Alcohol and Drug Abuse Patient Records regulations: The Federal rules restrict any use of the information to criminally investigate or prosecute any alcohol or drug abuse patient.[facility] HospitalIn the event this information is protected by the Federal Confidentiality of Alcohol and Drug Abuse Patient Records regulations: The Federal rules restrict any use of the information to criminally investigate or prosecute any alcohol or drug abuse patient.[facility] HospitalIn the event this information is protected by the Federal Confidentiality of Alcohol and Drug Abuse Patient Records regulations: The Federal rules restrict any use of the information to criminally investigate or prosecute any alcohol or drug abuse patient.[facility] HospitalIn the event this information is protected by the Federal Confidentiality of Alcohol and Drug Abuse Patient Records regulations: The Federal rules restrict any use of the information to criminally investigate or prosecute any alcohol or drug abuse patient.[facility] HospitalIn the event this information is protected by the Federal Confidentiality of Alcohol and Drug Abuse Patient Records regulations: The Federal rules restrict any use of the information to criminally investigate or prosecute any alcohol or drug abuse patient.[facility] HospitalIn the event this information is protected by the Federal Confidentiality of Alcohol and Drug Abuse Patient Records regulations: The Federal rules restrict any use of the information to criminally investigate or prosecute any alcohol or drug abuse patient.[facility] HospitalIn the event this information is protected by the Federal Confidentiality of Alcohol and Drug Abuse Patient Records regulations: The Federal rules restrict any use of the information to criminally investigate or prosecute any alcohol or drug abuse patient.[facility] HospitalIn the event this information is protected by the Federal Confidentiality of Alcohol and Drug Abuse Patient Records regulations: The Federal rules restrict any use of the information to criminally investigate or prosecute any alcohol or drug abuse patient.[facility] HospitalIn the event this information is protected by the Federal Confidentiality of Alcohol and Drug Abuse Patient Records regulations: The Federal rules restrict any use of the information to criminally investigate or prosecute any alcohol or drug abuse patient.[facility] HospitalIn the event this information is protected by the Federal Confidentiality of Alcohol and Drug Abuse Patient Records regulations: The Federal rules restrict any use of the information to criminally investigate or prosecute any alcohol or drug abuse patient.[facility] HospitalIn the event this information is protected by the Federal Confidentiality of Alcohol and Drug Abuse Patient Records regulations: The Federal rules restrict any use of the information to criminally investigate or prosecute any alcohol or drug abuse patient.[facility] HospitalIn the event this information is protected by the Federal Confidentiality of Alcohol and Drug Abuse Patient Records regulations: The Federal rules restrict any use of the information to criminally investigate or prosecute any alcohol or drug abuse patient.[facility] HospitalIn the event this information is protected by the Federal Confidentiality of Alcohol and Drug Abuse Patient Records regulations: The Federal rules restrict any use of the information to criminally investigate or prosecute any alcohol or drug abuse patient.[facility] HospitalIn the event this information is protected by the Federal Confidentiality of Alcohol and Drug Abuse Patient Records regulations: The Federal rules restrict any use of the information to criminally investigate or prosecute any alcohol or drug abuse patient.[facility] HospitalIn the event this information is protected by the Federal Confidentiality of Alcohol and Drug Abuse Patient Records regulations: The Federal rules restrict any use of the information to criminally investigate or prosecute any alcohol or drug abuse patient.[facility] HospitalIn the event this information is protected by the Federal Confidentiality of Alcohol and Drug Abuse Patient Records regulations: The Federal rules restrict any use of the information to criminally investigate or prosecute any alcohol or drug abuse patient.[facility] HospitalIn the event this information is protected by the Federal Confidentiality of Alcohol and Drug Abuse Patient Records regulations: The Federal rules restrict any use of the information to criminally investigate or prosecute any alcohol or drug abuse patient.[facility] HospitalIn the event this information is protected by the Federal Confidentiality of Alcohol and Drug Abuse Patient Records regulations: The Federal rules restrict any use of the information to criminally investigate or prosecute any alcohol or drug abuse patient.[facility] HospitalIn the event this information is protected by the Federal Confidentiality of Alcohol and Drug Abuse Patient Records regulations: The Federal rules restrict any use of the information to criminally investigate or prosecute any alcohol or drug abuse patient.[facility] Reason for Visit (unrecogniz ed section and content) Reason Onset Date Comments Refill Request 05/30/2021 Reason Onset Date Comments Refill Request 06/01/2021 Reason Onset Date Comments Refill Request 06/05/2021 Reason Comments Medication Authorization Nayzilam Reason Onset Date Comments Refill Request 10/27/2021 Reason Onset Date Comments Refill Request 12/13/2021 Reason Onset Date Comments Refill Request 11/27/2022 Reason Comments Seizures Reason Comments Epilepsy follow up Reason Comments Results Vitamin D Reason Onset Date Comments Refill Request 03/26/2023 Reason Comments PSG Check In Reason Comments New Patient Had sleep study done two weeks ago, Epilepsy triggered by sleep disturbances. Not sleeping well through the night Specialty Diagnoses / Procedures Referred By Myra t Referred To Contact Diagnoses Juvenile myoclonic epilepsy, not intractable, with status epilepticus (HCC) Procedures CONSULT TO SLEEP MEDICINE - ADULT OFFICE/OUTPATIENT NEW HIGH MDM 60-74 MINUTES Carla Rico MD [address] [place] [address] Referral ID Status Reason Start Date Expiration Date V isits Requested Visits Authorized [id number] Closed PCP Requested Referral 02/01/2023 02/01/2024 1 1 Reason Onset Date Comments Refill Request 04/28/2023 Reason Comments Established Patient Reason Onset Date Comments Refill Request 09/12/2023 Reason Comments Medication Authorization Lacosamide Reason Comments Forms Reason Comments New Patient New NI Patient Reason Comments Forms BMV Reason Comments medication follow up Reason Onset Date Comments Refill Request 12/17/2023 Reason Onset Date Comments Refill Request 12/19/2023 Reason Comments Established Patient Follow Up Reason Comments Orders Reason Onset Date Comments Refill Request 01/31/2024 Reason Comments [facility] Visit Reason Comments Forms [facility] Reason Onset Date Comments Refill Request 02/07/2024 Reason Comments Medication Problem LACOSAMIDE - Clarifi cation Reason Onset Date Comments Refill Request 02/10/2024 Reason Comments Medication Problem Vimpat - Pharmacy Ne eds Clarification Reason Comments New patient exam Pt has had a high he art rate when she exercises. Pt states she noticed it 2 years ago. Pt states it will be in the 200s. Pt states resting heart rate while sleeping can be in the 40s. Pt denies chest pain at rest but will have chest pain when heart rate is elevated with exercising. Pt denies sob. Pt sees neurology. Reason Onset Date Comments Refill Request 05/21/2024 Reason Comments Refill Request Reason Comments Menorrhagia clotting Reason Comments STI Screening INFORMATION SOURCE (unrecogn ized section and content) DATE CREATED AUTHOR 02/07/2023 [facility] DATE CREATED AUTHOR AUTHOR'S ORGANIZ ATION 02/26/2023 [facility] DATE CREATED AUTHOR AUTHOR'S ORGANIZ ATION 04/30/2023 [facility] DATE CREATED AUTHOR AUTHOR'S ORGANIZ ATION 04/20/2024 [facility] DATE CREATED AUTHOR AUTHOR'S ORGANIZ ATION 06/23/2024 [facility] DATE CREATED AUTHOR AUTHOR'S ORGANIZ ATION 09/10/2024 [facility] DATE CREATED AUTHOR AUTHOR'S ORGANIZ ATION 09/18/2024 [facility] EPIC Care Teams (unrecognized sec tion and content) Team Status: Active Member Role Status Dates ASPEN Abrams Primary Care Provider Active Team Status: Inactive Member Role Status Dates ASPEN Abrams Primary Care Provider Active Start: June 14, 2023 End: June 14, 2023 Maira Gibson APRN Attending Provider Active Start: June 14, 2023 End: June 14, 2023 Team Status: Inactive Member Role Status Dates Maira Gibson APRN Attending Provider Active Start: June 14, 2023 End: June 14, 2023 Machine Inspector Relationship Specialty Start Date End Date Love Madison MD [address] [facility] [place] [address] PCP - General Family Medicine 01/25/23 Ashley Corcoran NP [address] [facility] [place] [address] Nurse Practitioner Family Medicine 01/25/23 Machine Inspector Relationship Specialty Start Date End Date Love Madison MD [address] [facility] [place] [address] PCP - General Family Medicine 01/25/23 Ashley Corcoran NP [address] [facility] [place] [address] Nurse Practitioner Family Medicine 01/25/23 Team Status: Active Member Role Status Dates PHYSICIAN NO FAMILY Primary Care Provider Active Team Status: Inactive Member Role Status Dates PHYSICIAN NO FAMILY Primary Care Provider Active Start: December 22, 2023 End: December 22, 2023 Valdez Manrique PA-C Emergency Provider Active Start: December 22, 2023 End: December 22, 2023 Team Status: Inactive Member Role Status Dates PHYSICIAN NO FAMILY Primary Care Provider Active Start: December 11, 2023 End: December 11, 2023 Baldev Mayer - [facility] , DO [facility] Attending Provider Active Start: December 11, 2023 End: December 11, 2023 Machine Inspector Relationship Specialty Start Date End Date Love Madison MD [address] [facility] [place] [address] PCP - General Family Medicine 01/25/23 Ashley Corcoran NP [address] [place] [address] Nurse Practitioner Family Medicine 01/25/23 Machine Inspector Relationship Specialty Start Date End Date Love Madison MD [address] [place] [address] PCP - General Family Medicine 01/25/23 Ashley Corcoran NP [address] [facility] [place] [address] Nurse Practitioner Family Medicine 01/25/23 Team Status: Inactive Member Role Status Dates PHYSICIAN NO FAMILY Primary Care Provider Active Start: March 04, 2024 End: March 04, 2024 Jimmy Donis DO Emergency Provider Active Sta rt: March 04, 2024 End: March 04, 2024 Team Status: Inactive Member Role Status Dates PHYSICIAN NO FAMILY Primary Care Provider Active Start: March 16, 2024 End: March 16, 2024 Valdez Manrique PA-C Emergency Provider Active Start: March 16, 2024 End: March 16, 2024 Machine Inspector Relationship Specialty Start Date End Date Love Madison MD [address] [place] [address] PCP - General Family Medicine 01/25/23 Ashley Corcoran NP [address] [place] [address] Nurse Practitioner Family Medicine 01/25/23 Machine Inspector Relationship Specialty Start Date End Date Chey Bliss MD [address] [place] [address] PCP - General Family Medicine 04/13/24 Ashley Corcoran NP [address] [facility] [place] [address] Nurse Practitioner Family Medicine 01/25/23 Machine Inspector Relationship Specialty Start Date End Date Chey Bliss MD [address] [place] [address] PCP - General Family Medicine 04/13/24 Nory Aguilar NP [address] [facility] [place] [address] Nurse Practitioner Family Medicine 04/20/24 Machine Inspector Relationship Specialty Start Date End Date Chey Bliss MD [address] [facility] [place] [address] PCP - General Family Medicine 04/13/24 Nory Aguilar NP [address] [facility] [place] [address] Nurse Practitioner Family Medicine 04/20/24 Team Status: Active Member Role Status Dates DEUCE Cristina Primary Care Provider Active Team Status: Inactive Member Role Status Dates DEUCE Cristina Primary Care Pro vider, Attending Provider Active Start: April 20, 2024 End: April 20, 2024 Team Status: Inactive Member Role Status Dates DEUCE Cristina Primary Care Pro vider, Attending Provider Active Start: May 18, 2024 End: May 18, 2024 Machine Inspector Relationship Specialty Start Date End Date Chey Bliss MD [address] [facility] [place] [address] PCP - General Family Medicine 04/13/24 Nory Aguilar NP [address] [facility] [place] [address] Nurse Practitioner Family Medicine 04/20/24 Gabi Mcclure DO [address] [address] Referring Physician Neurology 06/18/24 Machine Inspector Relationship Specialty Start Date End Date Chey Bliss MD PCP - General Family Medicine 04/13/24 Nory Aguilar NP [address] [place] [address] Nurse Practitioner Family Medicine 04/20/24 Gabi Mcclure DO [address] [address] Referring Physician Neurology 06/18/24 Machine Inspector Relationship Specialty Start Date End Date Chey Bliss MD PCP - General Family Medicine 04/13/24 Nory Aguilar NP [address] [place] [address] Nurse Practitioner Family Medicine 04/20/24 Gabi Mcclure DO [address] [address] Referring Physician Neurology 06/18/24 Machine Inspector Relationship Specialty Start Date End Date Chey Bliss MD PCP - General Family Medicine 04/13/24 Nory Aguilar NP [address] [place] [address] Nurse Practitioner Family Medicine 04/20/24 Gabi Mcclure DO [address] [address] Referring Physician Neurology 06/18/24 Team Status: Inactive Member Role Status Dates Nory Aguilar NP-C Primary Care Provider Active Start: August 27, 2024 End: August 27, 2024 Gabi Mcclure DO Attending Provider Active Start: August 27, 2024 End: August 27, 2024 Machine Inspector Relationship Specialty Start Date End Date Chey Bliss MD PCP - General Family Medicine 04/13/24 Nory Aguilar NP [address] [place] [address] Nurse Practitioner Family Medicine 04/20/24 Gabi Mcclure DO [address] [address] Referring Physician Neurology 06/18/24 Machine Inspector Relationship Specialty Start Date End Date Chey Bliss MD PCP - General Family Medicine 04/13/24 Nory Aguilar NP [address] [place] [address] Nurse Practitioner Family Medicine 04/20/24 Gabi Mcclure DO [address] [address] Referring Physician Neurology 06/18/24 Machine Inspector Relationship Specialty Start Date End Date Chey Bliss MD PCP - General Family Medicine 04/13/24 Nory Aguilar NP [address] [place] [address] Nurse Practitioner Family Medicine 04/20/24 Gabi Mcclure DO [address] [address] Referring Physician Neurology 06/18/24 Machine Inspector Relationship Specialty Start Date End Date Chey Bliss MD PCP - General Family Medicine 04/13/24 Nory Aguilar NP [address] [place] [address] Nurse Practitioner Family Medicine 04/20/24 Gabi Mcclure DO [address] [address] Referring Physician Neurology 06/18/24 Machine Inspector Relationship Specialty Start Date End Date Chey Bliss MD PCP - General Family Medicine 04/13/24 Nory Aguilar NP [address] [place] [address] Nurse Practitioner Family Medicine 04/20/24 Gabi Mcclure DO [address] [address] Referring Physician Neurology 06/18/24 Goals (unrecognized section and content) Goals may be documented in a n alternate sectionGoals may be documented in an alternate sectionGoals may be documented in an alternate sectionGoals may be documented in an alternate sectionGoals may be documented in an alternate sectionGoals may be documented in an alternate sectionGoals may be documented in an alternate sectionGoals may be documented in an alternate sectionGoals may be documented in an alternate section FOR RECORDS PERTAINING TO PATIENTS WHO ARE OR HAVE BEEN ENROLLED IN A CHEMICAL DEPENDENCY/SUBSTANCEABUSE PROGRAM, SOME INFORMATION MAY BE OMITTED. This clinical summary was aggregated from multiple sources. Caution should be exercised in using it in the provision of clinical care. This summary normalizes information from multiple sources, and as a consequence, information in this document may materially change the coding, format and clinical context of patient data. In addition, data may be omitted in some cases. CLINICAL DECISIONS SHOULD BE BASED ON THE PRIMARY CLINICAL RECORDS. [facility] [employer] [facility]. provides no warranty or guarantee of the accuracy or completeness of information in this document.
[2024-10-09 07:09] LABS: HSV-1 DNA Negative (Negative); HSV-2 DNA Positive (Negative)
== END 2024-10-06 10:51 | disposition home or self-care (01) ==
LOC: LAB 10:52
PROVIDERS: PCP Nurse Practitioner Family; Visit Provider Physician Assistant
DX: N89.8 Other specified noninflammatory disorders of vagina (principal)
CPT/HCPCS: 87529

== ENCOUNTER 2024-11-27 07:00 | Outpatient (OUT) | payer BC, OTHER, SELFPAY ==
--- NOTE | 2024-11-27 07:01 | US_ITS ---
The [address] [address] Patient Name: QUENTIN WALLS MRN: [id number] date: 2000 Sex: F Assigned Patient Location: US Current Patient Location: Accession/Order Number: [id number] Exam Date: 11/27/2024 07:02 Report Date: 11/27/2024 07:52 At the request of: ALFREDITO KIM DO Procedure: US OB transvaginal OB TRANSVAGINAL ULTRASOUND CLINICAL DATA: Missed menses and positive test. Transvaginal evaluation of the pelvis was performed. There is a gestational sac within the uterus. A yolk sac and pole are present. The crown-rump length measurement of 1.6 cm correlates with ultrasound age of 8 weeks 0 days. The estimated date of delivery is 07/09/2025. The manager testing did not document cardiac activity. The manager testing also raised question of the possibility of gastroschisis. The cervix is closed and measures approximately 3.7 cm in length. Both ovaries are seen. The right measures 4.4 x 2.6 x 2.7 cm . Left ovary measures 2.5 x 2.1 x 2.1 cm. There are 2 cystic areas within the right ovary. The larger measures 2.2 x 2.0 x 2.2 cm. There are tiny left ovarian follicles. There is documentation of ovarian blood flow. No free fluid is noted. US/US OB transvaginal IMPRESSION: POSSIBLE NONVIABLE 8 WEEK , DISCUSSED ABOVE. FOLLOW-UP WILL BE NEEDED. Impression dictated by: Elissa Dunaway M.D. 11/27/2024 7:52 AM Dictation Location: [place] [address] Electronically authenticated by: [id number] Date: 11/27/2024 07:52
--- OUTSIDE RECORDS SUMMARY | 2024-11-27 07:03 | XMS_ITS | CCD ---
Author Organization [facility] Care Team Providers Care Retail Pharmacy Technician Name Role Phone Unavailable Primary Care Provider UnavailCarlota CHOWDARY, CARLA Attending Unavailable HOLLAND CHOWDARY, CARLA Referring Unavailable ASHLEY CORCORAN Attending Unavailable ASHLEY CORCORAN Attending Unavailable Unavailable Primary Care Provider UnavailTHAO Winston Attending Unavailable HOLLAND CHOWDARY, CARLA Referring Unavailable BEULAH Gibson Attending Provider Unavailable Primary Care Provider UnavailAshley Yuan NP Unavailable Love Madison MD Primary Care Provider NO FAMILY, PHYSICIAN Primary Care Provider Unava ilable TOO Manrique Emergency Provider NO FAMILY, PHYSICIAN Primary Care Provider Unava ilable [facility] Baldev HARPER Attending Provider Valdez Manrique PA-C Emergency Provider [phone] Jimmy Donis DO Emergency Provider Chey Bliss MD Primary Care Provider DAISY DE LEON Attending Unavailable DAISY DE LEON Referring Unavailable CARLA RICO Referring Unavailable HOLLAND CHOWDARY, CARLA Attending Unavailable DAISY DE LEON Attending Unavailable Nory Aguilar NP Unavailable NO FAMILY, PHYSICIAN Primary Care Provider Unava ilable Valdez Manrique PA-C Emergency Provider [phone] Nory Uribe Primary Care Provider [phone] Nory Uribe Attending Provider NO FAMILY, PHYSICIAN Primary Care Provider Unava ilable Jimmy Donis DO Emergency Provider [phone] Valdez Manrique PA-C Emergency Provider Brandon FORGE UTILITY WORKER-C, Nory Primary Care Provider Brandon FORGE UTILITY WORKER-C, Nory Attending Provider Gabi Mcclure DO Unavailable [phone] Chey Bliss MD Primary Care Provider Gabi Mcclure DO Unavailable Brandon FORGE UTILITY WORKER-C, Nory Primary Care Provider [phone] Gabi Mcclure DO Attending Provider [phone] Fanny TWISTING PRESS OPERATOR-GUN SYNCHRONIZER, Kathryn Montano Attending Unavailable Fanny RIOJAS-KRYSTAL, Kathryn Montano Attending Unavailable NORY AGUILAR Attending Unavailable GABI MCCLURE Attending Unavailable CHEY BLISS Referring Unavailable JONATHAN ELIZABETH Attending Unavailable ANDREAS SAMSON Attending Unavailable JENNIFER RENDON Attending Unavailable JENNIFER RENDON Attending Unavailable JONATHAN ELIZABETH Attending Unavailable JENNIFER RENDON Attending Unavailable Jonathan Elizabeth DO Other Provider NO FAMILY, PHYSICIAN Primary Care Unavailable Valdez Manrique Admitting Unavailable Valdez Manrique Attending Unavailable NO FAMILY, PHYSICIAN Primary Care Unavailable Jimmy Donis Admitting Unavailable Jimmy Donis Attending Unavailable NO FAMILY, PHYSICIAN Primary Care Unavailable Valdez Manrique Admitting Unavailable Valdez Manrique Attending Unavailable Nory Aguilar Attending Unavailable Aguilar, Nory Admitting Unavailable Aguilar, Nory Primary Care Unavailable AguilarGopala Attending Unavailable Aguilar, Nory Admitting Unavailable Aguilar, Nory Primary Care Unavailable Jonathan Elizabeth Consulting Unavailable Gabi Mcclure Admitting Unavailab Gabi Arroyo Attending Unavailab rasheed Aguilar, Nory Primary Care Unavailable Kimos - Baldev FIERRO Admitting Unavailable Kuns - Baldev FIERRO Attending Unavailable NO FAMILY, PHYSICIAN Primary Care Unavailable Allergies Allergy Classification Reported Allergen(s) Allergy Type Date of Onset Reaction(s) Facility (1 source) No Known Medication Allergies; Translations: [No Known Medication Allergies] Propensity to adverse reactions to drug (disorder) [facility] Rep[facility] Medications Current Medications Medication Drug Class(es) Dates Sig (Normalized) Sig (Original) acetaminophen 325 mg / HYDROcodone bitartrate 5 mg oral tablet (4 sources) Opioid Agonist Start: 10-08-2024 End: 10-13-2024 take 1 tablet by mouth every six hours for pain HYDROcodone-acetam inophen ([place]) 5-325 MG tablet Indications: Herpes genitalis in women Take 1 tablet by mouth every 6 (six) hours if needed for moderate pain or severe pain for up to 5 days 20 tablet 10/08/2024 10/13/2024 Active amoxicillin 500 mg oral capsule (2 sources) Penicillin-class Antibacterial Start: 05-28-2024 take 1 capsule by mouth twice daily azithromycin 500 mg oral tablet (10 sources) Macrolide Antimicrobial Start: 09-18-2024 take 1 [...] take 1 tablet by mouth once daily Start: 06-14-2023 Bupropion Hcl Active MG PO [...] . clobetasol propionate 0.5 mg/ml topical cream (8 sources) Corticosteroid Start: 10-07-19 End: 10-21-19 clobetasol (Temovate) 0.05 % cream Indications: Vaginal lesion Apply 1 application topically Daily for 14 days 45 g 10/06/2024 10/20/2024 Active Ethinyl Estradiol / Ferrous fumarate / Norethindrone (20 sources) Estrogen Start: 10-14-19 End: 10-09-19 take 1 tablet by mouth once daily norethindrone-ethin yl estradiol-iron (Lo Loestrin Fe) 1 MG-10 MCG / 10 MCG tablet Indications: Menorrhagia with irregular cycle Take 1 tablet by mouth Daily Take 1 tablet by mouth daily 90 tablet 3 10/13/2024 10/08/2025 Active Start: 08-26-2024 End: 10-13-2024 take 1 tablet by mouth once daily norethindrone-ethinyl estradiol-iron (Lo Loestrin Fe) 1 MG-10 MCG / 10 MCG tablet Indications: Menorrhagia with irregular cycle Take 1 tablet by mouth Daily for 28 days Take 1 tablet by mouth daily 28 tablet 11 08/26/2024 10/13/2024 Discontinued (Reorder) Start: 08-26-2024 take 1 tablet by macho once daily norethindrone-ethinyl estradiol-iron (Lo Loestrin Fe) [...] PO June 14, 2023 12:00am Start: 11-28-2022 take 1 tablet by macho once daily Start: 12-01-2020 End: 02-12-2025 take 2 tablets by mouth once daily folic acid 1 mg tablet Indications: Juvenile myoclonic epilepsy, not intractable, with status epilepticus (HCC) Take 2 tablets by mouth once daily. 180 tablet 3 02/13/2024 02/12/2025 Active Comment on above: Take 2 tablets by mo [facility] once daily. lamoTRIgine 100 mg oral tablet (20 sources) Mood Stabilizer, Anti-epileptic Agent Start: 03-05-2024 End: 03-05-2025 take 2 tablets by mouth twice daily lamoTRIgine (LAMICTAL) 25 mg tablet Take 2 tablets by mouth two times a day. Take with 100 mg tablet for a total of 150 mg twice daily. 360 tablet 3 03/05/2024 03/05/2025 Active Start: 03-04-2024 End: 03-04-2025 Start: 03-04-2024 End: 03-04-2025 take 1 tablet [...] 03/04/2024 Discontinued levETIRAcetam 500 mg oral tablet (20 sources) Start: 06-18-2024 End: 06-18-2025 take 1 tablet by mouth twice daily Magnesium Hydroxide (16 sources) take 500 mg by mouth once daily magnesium hydroxide (MAGNESIA ORAL) Take 500 mg by mouth once daily. Active magnesium oxide 500 mg oral capsule (14 sources) End: 09-16-2024 Magnesium Oxide -Mg Supplement (RA Magnesium) 500 MG capsule Take by mouth 09/16/2024 Discontinued 24 hr metFORMIN hydrochloride 500 mg extended release oral tablet (20 sources) Biguanide Start: 03-19-2024 End: 10-09-2025 take 2 tablets by mouth every twenty-four hours at mealtime metFORMIN XR (Glucophage-XR) 500 MG 24 hr tablet Indications: Insulin resistance Take 2 tablets (1,000 mg) by mouth in the evening. Take with meals Do not crush, chew, or split. 180 tablet 3 10/14/2024 10/09/2025 Active Start: 10-28-2023 End: 01-26-2024 take 2 tablets by mouth every twenty-four hours at mealtime metFORMIN XR (Glucophage-XR) 500 MG 24 hr tablet Indications: Insulin resistance Take 2 tablets (1,000 mg) by mouth in the evening. Take with meals Do not crush, chew, or split. 180 tablet 10/28/2023 12/16/2023 Discontinued (Other) Start: 06-14-2023 take 1 tablet by macho th once daily Start: 06-14-2023 Metformin Acti ve MG PO [...] nasal spray (20 sources) Benzodiazepine Start: 08-27-2024 Start: 10-10-2020 End: 12-16-2024 midazolam (NAYZILAM) 5 [...] tolerability. Multiple Vitamins-Minerals (MULTIVITAMIN GUMMIES WOMENS PO) (20 sources) Multiple Vitamins-Minerals (MULTIVITAMIN GUMMIES WOMENS PO) Take by mouth Active valACYclovir 500 mg oral tablet (10 sources) Herpesvirus Nucleoside Analog DNA Polymerase Inhibitor, Herpes Simplex Virus Nucleoside Analog DNA Polymerase Inhibitor, Herpes Zoster Virus Nucleoside Analog DNA Polymerase Inhibitor Start: 10-14-19 End: 11-13-19 take 1 tablet by mouth once daily valACYclovir (Valtrex) 500 MG tablet Indications: Herpes genitalis in women Take 1 tablet (500 mg) by mouth Daily 30 tablet 11 10/13/2024 11/12/2024 Active Start: 10-06-2024 End: 10-17-2024 take 1 tablet by mouth in the morning valACYclovir (Valtrex) 1 g tablet Indications: Vaginal lesion Take 1 tablet (1,000 mg) by mouth in the morning and 1 tablet (1,000 mg) before bedtime. Do all this for 10 days. 20 tablet 10/07/2024 10/17/2024 Active 24 hr venlafaxine 37.5 mg extended release oral capsule (20 sources) Serotonin and Norepinephrine Reuptake Inhibitor Start: 01-02-2024 End: 10-09-2025 take 1 capsule by mouth once daily vitamin b12 1 mg oral tablet (20 sources) Vitamin B12 take 1 tablet by mouth once daily cyanocobalamin (Vitamin B-12) 1000 MCG tablet Take 1,000 mcg by mouth Daily Active zonisamide 100 mg oral capsule (20 sources) Anti-epileptic Agent Start: 05-28-2024 Start: 05-22-2024 End: 08-20-2024 take 3 capsules [...] (HCC) Please follow wean schedule [facility] 168 tablet 02/07/2024 02/10/2024 Discontinued Start: 09-10-2023 [...] = total dose 150 mg twice daily oz-rt-tkbo-FA-Ca carb-vit K (WOMEN'S MULTIVITAMIN) 18 mg-400 mcg- 500 mg-50 mcg tab (11 sources) Start: 10-27-2021 End: 02-01-2023 take 1 tablet by mouth once daily de-vg-bube-FA-Ca carb-vit K (WOMEN'S MULTIVITAMIN) 18 mg-400 mcg- 500 mg-50 mcg tab Indications: Juvenile myoclonic epilepsy, not intractable, with status epilepticus (HCC) Take 1 tablet by mouth once daily. 365 tablet 0 10/27/2021 02/01/2023 Discontinued (Course of therapy completed) Start: 10-27-2021 take 1 tablet by macho th once daily ap-ms-akpv-FA-Ca carb-vit K (WOMEN'S MULTIVITAMIN) 18 mg-400 mcg- 500 mg-50 mcg tab Indications: Juvenile myoclonic epilepsy, not intractable, with status epilepticus (HCC) Take 1 tablet by mouth once daily. 365 tablet 0 10/27/2021 Active Start: 10-27-2021 End: 10-27-2022 take 1 tablet by mouth once daily jg-cx-yjrz-FA-Ca carb-vit K (WOMEN'S MULTIVITAMIN) 18 mg-400 mcg- 500 mg-50 mcg tab Indications: Juvenile myoclonic epilepsy, not intractable, with status epilepticus (HCC) Take 1 tablet by mouth once daily. 365 tablet 0 10/27/2021 10/27/2022 Active Start: 12-01-2020 End: 10-27-2021 take 1 tablet by mouth once daily ac-ik-magx-FA-Ca carb-vit K (WOMEN'S MULTIVITAMIN) 18 mg-400 mcg- 500 mg-50 mcg tab Indications: Juvenile myoclonic epilepsy, not intractable, with status epilepticus (HCC) Take 1 tablet by mouth once daily. 365 tablet 0 12/01/2020 10/27/2021 Discontinued Start: 12-01-2020 End: 12-01-2021 take 1 tablet by mouth once daily kt-kx-dznx-FA-Ca carb-vit K (WOMEN'S MULTIVITAMIN) 18 mg-400 mcg- 500 mg-50 mcg tab Indications: Juvenile myoclonic epilepsy, not intractable, with status epilepticus (HCC) Take 1 tablet by mouth once daily. 365 tablet 0 12/01/2020 12/01/2021 Active Comment on above: Take 1 tablet by macho th once daily. nitrofurantoin, macrocrystals 25 mg / nitrofurantoin, monohydrate 75 mg oral capsule (9 sources) Nitrofuran Antibacterial Start: End: take 1 capsule by mouth every twelve hours at mealtime Nitrofurantoin Monohyd/M-Cryst (Macrobid) 100 mg capsule Discontinued 100 MG PO Every 12 hours 11 22June 14, 2023 12:00am March 04, 2024 10:13am must administer with a meal/food ondansetron 4 mg disintegrating oral tablet (5 sources) Serotonin-3 Receptor Antagonist Start: End: take 1 tablet by mouth four times daily as needed for nausea and vomiting Ondansetron 4 mg tablet,disintegrating Discontinued 4 MG PO Four times daily as needed for nausea and vomiting March 16, 2024 1:00am May 28, 2024 5:10pm phenazopyridine hydrochloride 200 mg oral tablet (9 sources) Start: End: take 1 tablet by mouth three times daily as needed Phenazopyridine (Pyridium) 200 mg tablet Discontinued 200 MG PO Three times daily as needed for urinary symptoms 10 21June 14, 2023 12:00am March 04, 2024 10:13am promethazine hydrochloride 25 mg oral tablet (5 sources) Phenothiazine Start: End: take 1 tablet [...] [Anxiety disorder, unspecified] Onset: 03-16-2020 06-14-2023 Chronic Epilepsy; convulsions (20 sources) Juvenile myoclonic epilepsy; Translations: [Juvenile myoclonic epilepsy, not intractable, with status epilepticus] Onset: 09-28-2020 Chronic Genitourinary symptoms and ill-defined conditions (2 sources) Dysuria; Translations: [Dysuria] 06-14-2023 Episodic Immunizations and screening for infectious disease (12 sources) Patient encounter status; Translations: [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] 12-16-2023 Episodic Inflammatory diseases of female pelvic organs (4 sources) Bacterial vaginosis; Translations: [Acute vaginitis] 08-26-2024 Episodic Malaise and fatigue (3 sources) Malaise and fatigue; Translations: [Other malaise] Onset: 04-29-2023 04-29-2023 Episodic Menstrual disorders (4 sources) Menometrorrhagia; Translations: [Excessive and frequent menstruation with irregular cycle] 08-26-2024 Chronic Miscellaneous mental health disorders (2 sources) Not getting enough sleep; Translations: [Insufficient sleep syndrome] Onset: 04-29-2023 04-29-2023 Chronic Mood disorders (20 sources) Recurrent major depression in partial remission; Translations: [Major depressive disorder, recurrent, in partial remission] Onset: 09-28-2020 09-28-2020 Chronic Nutritional deficiencies (2 sources) Vitamin D deficiency; [...] Episodic Other nutritional; endocrine; and metabolic disorders (4 sources) Insulin resistance; Translations: [Insulin resistance] 10-28-2023 [...] hygiene] Onset: 04-29-2023 Episodic Urinary tract infections (10 sources) Acute urinary tract infection; Translations: [Urinary tract infection, site not specified] 06-14-2023 Episodic Viral infection (3 sources) Herpes simplex of female genitalia; Translations: [Herpesviral infection of other urogenital tract] 10-08-2024 Chronic Past or Other Problems Problem Classification Problem Date Documented Date Episodic/Chronic Cardiac dysrhythmias (3 sources) Tachycardia; Translations: [Tachycardia, unspecified] Onset: 05-18-2024 04-13-2024 Episodic Epilepsy; convulsions (15 sources) Seizure; Translations: [Unspecified convulsions] Onset: 12-22-2023 12-22-2023 Episodic Immunizations and screening for infectious disease (7 sources) Exposure to sexually transmissible disorder; Translations: [Contact with and (suspected) exposure to infections with a predominantly sexual mode of transmission] Onset: 12-11-2023 09-16-2024 Episodic Intracranial injury (20 sources) Concussion with less than 1 hour loss of consciousness; Translations: [Concussion with loss of consciousness of 30 minutes or less, initial encounter] Onset: 10-30-2018 Resolved: 04-10-2024 04-10-2024 Episodic Mood disorders (20 sources) Mood disorders Onset: 01-25-2023 Resolved: 04-13-2024 01-25-2023 Nausea and vomiting (6 sources) Nausea and vomiting; Translations: [Nausea with vomiting, unspecified] Onset: 03-16-2024 03-16-2024 Episodic Results Test Name Value Interpretation Reference Range Facility Choriogonadotropin.beta subu nit [Units/volume] in Serum or PlasmaOrdered By: Jonathan Elizabeth on 11-05-2024 HCG.beta subunit Qn 9118.00 m[IU]/mL [facility] Comment on above: Approximate Approxim ate hCG Gestational Age Range (mIU/ml) (weeks)0.2-1 5-50 1-2 50-500 2-3 100-5,000 3-4 500-10,000 4-5 1,000-50,000 5-6 10,000-100,000 6-8 15,000-200,000 8-12 10,000-100,000 HCG,Quantitativeon HCG,Quantitative 9118.00 m[iU]/mL Normal e [facility] Comment on above: Result Comment: Appr oximate Approximate hCG Gestational Age Range (mIU/ml) (weeks) 0.2-1 5-50 1-2 50-500 2-3 100-5,000 3-4 500-10,000 4-5 1,000-50,000 5-6 10,000-100,000 6-8 15,000-200,000 8-12 10,000-100,000 PERFORMED BY: [place] [address] PATHOLOGIST SOLAR BUSINESS DEVELOPER TAMAR VALIENTE M.D. Performed By: #### H CGQNT #### [address] Lamotrigine (Lamictal)on Lamotrigine (Lamictal) 3.9 Normal 2.0-20.0 Th e [facility] Comment on above: Result Comment: Dete ction Limit = 1.0 Performed at: - [address] [id number] Lieutenant Firefighter: Stanton Solorzano MD, Phone: [phone] Performed By: #### Z LUIS DIGGSOT ####[facility] , Zonisamideon 11-05-2024 Zonisamide 13.3 Normal 10.0-40.0 [facility] Comment on above: Result Comment: Dete ction Limit = 2.0 PERFORMED BY: [facility] [address] [place] [address] PATHOLOGIST SOLAR BUSINESS DEVELOPER TAMAR VALIENTE M.D. Performed By: #### Z BETHEL DIGGS ####[facility] , hCG, quantitative, on 11-05-2024 HCG,QUANTITATIVE 9118 m[iU]/mL [facility] Comment on above: Approximate Approxim ate hCG Gestational Age Range (mIU/ml) (weeks) 0.2-1 5-50 1-2 50-500 2-3 100-5,000 3-4 500-10,000 4-5 1,000-50,000 5-6 10,000-100,000 6-8 15,000-200,000 8-12 10,000-100,000 [facility] HERPES SIMPLEX VIRUS 1/2 DNA PCRon 10-09-2024 HSV-1 DNA Negative Negative [facility] Comment on above: This test was develo ped and its performance characteristics determined by [employer]. It has not been cleared or approved by the Food and Drug Administration. HSV-2 DNA Positive Abnormal Negative [facility] Comment on above: This test was develo ped and its performance characteristics determined by [employer]. It has not been cleared or approved by the Food and Drug Administration. Performed at: [facility] [address] [id number] Lieutenant Firefighter: Stanton Solorzano MD, Phone: [phone] Interpretation and review of laboratory results Abnormal [facility] RECURRENT VAGINITIS (HTRX)on 10-07-2024 HERPES SIMPLEX VIRUS 1 0 NO [facility] HERPES SIMPLEX VIRUS 1 Not detected [facility] HERPES SIMPLEX VIRUS 2 17.77 Abnormal NO [facility] HERPES SIMPLEX VIRUS 2 Detected Abnormal NO [facility] Interpretation and review of laboratory results Abnormal [facility] RECURRENT VAGINITIS (HTRX)on 09-18-2024 ATOPOBIUM VAGINAE 16.81 Abnormal [facility] ATOPOBIUM VAGINAE Detected Abnormal [facility] BVAB 2,3 (BACTERIAL VAGINOSIS ASSOCIATED BACTERIA 2, 3); MOBILUNCUS SPP 27.699 Abnormal [facility] BVAB 2,3 (BACTERIAL VAGINOSIS ASSOCIATED BACTERIA 2, 3); MOBILUNCUS SPP Detected Abnormal [facility] CHA ALBICANS, PARAPSILOSIS, TROPICALIS 29.592 Abnormal [facility] CHA ALBICANS, PARAPSILOSIS, TROPICALIS Detected Abnormal [facility] CHA GLABRATA 0 [facility] CHA GLABRATA Not detected [facility] CHA KRUSEI 0 [facility] CHA KRUSEI Not detected [facility] CHLAMYDIA TRACHOMATIS 0 [facility] CHLAMYDIA TRACHOMATIS Not detected N [facility] ERMB, C; MEFA 20.526 Abnormal [facility] ERMB, C; MEFA Detected Abnormal [facility] GARDNERELLA VAGINALIS 20.662 Abnormal [facility] GARDNERELLA VAGINALIS Detected Abnormal [facility] Interpretation and review of laboratory results Abnormal [facility] MEGASPHAERA (TYPES 1, 2) 0 [facility] MEGASPHAERA (TYPES 1, 2) Not detected [facility] MYCOPLASMA GENITALIUM 25.331 Abnormal [facility] MYCOPLASMA GENITALIUM Detected Abnormal [facility] NEISSERIA GONORRHOEAE 0 [facility] NEISSERIA GONORRHOEAE Not detected N [facility] TET B, TET M 18.96 Abnormal [facility] TET B, TET M Detected Abnormal [facility] TRICHOMONAS VAGINALIS 0 [facility] TRICHOMONAS VAGINALIS Not detected N [facility] HIV AB/P24 AG WITH REFLEXon 09-17-2024 HIV AB/P24 AG SCREEN Non-Reactive Non Reactive [facility] Comment on above: HIV-1/HIV-2 antibodi es and HIV-1 p24 antigen were NOT detected. There is no laboratory evidence of HIV infection. HIV Negative Performed at: [facility] [address] [id number] Lieutenant Firefighter: Dudley Del Rio PhD, Phone: [phone] [facility] Trep Abon 09-08-2024 Treponema Total Ab 0.16 Normal [facility] Comment on above: Performed By: #### C D:[id number] #### [address] [address] Treponema Total Ab Interp Negative Normal Negative [facility] Comment on above: Result Comment: No s erologic evidence of syphilis. No follow-up necessary unless clinically indicated (eg, early syphilis). Performed By: #### C D:[id number] #### [id number] [place] [address] Ambulatory Clinical Summaryo n 09-07-2024 Ambulatory Clinical [...] portal account set up, please contact the [facility] at . If [...] in female without diagnosis Dysuria Tests Performed/Pending 57885 AMB Urine Chemistry Analysis POC Your Care Team Attending Physician - Escobedo TWISTING PRESS OPERATOR-GUN SYNCHRONIZER, Kathryn Montano Discharge Vitals Temperature (Oral) 99.1 ?F (37.3 [...] signed by KRIS 09.07.2024 14:11 EDT Normal [facility] OR Trackon 09-07-2024 Specimens Received From [facility] Normal B [facility] Comment on above: Performed By: #### O trudi Tracking Order #### [facility] [address] [place] [address] Urgent Care Office/Clinic No roxanna 09-07-2024 Urgent Care Office/Clinic Note Chief Complaint pt states she would like std testing. denies symptoms History of Present Illness Patient is a 23-year-old female who presents today for STD testing. She states she denies any symptoms at all including urinary frequency, burning with urination, back pain, fever, nausea, vomiting. She was just seen at the [facility] within the last week and due to ongoing vaginal discharge was tested for trichomonas different forms of candidiasis, Gardnerella, gonorrhea, chlamydia and a couple other items. She came back negative for all of these items and is following up with her [facility] regarding this. She states that there was [...] and all of the items that the [facility] tested for and all were negative. Today [...] and screening: [facility] [phone] Medical Decision Making Chronic conditions NOT treated [...] Urine Dipstick Clear 09/07/2024 13:46 EDT Specific [place] Urine Dipstick 1.010 09/07/2024 13:46 EDT pH [...] Negative 09/07/2024 13:46 EDT Electronically signed by Kathryn Tabor 09/07/24 14:07 EDT Syphilis testing is negative. Electronically signed by Jasmin Phan PA-C 09/09/24 07:36 EDT Normal [facility] RECURRENT VAGINITIS (HTRX)on 08-27-2024 ATOPOBIUM VAGINAE 27.692 Abnormal [facility] ATOPOBIUM VAGINAE Detected Abnormal [facility] BVAB 2,3 (BACTERIAL VAGINOSIS ASSOCIATED BACTERIA 2, 3); MOBILUNCUS SPP 0 [facility] BVAB 2,3 (BACTERIAL VAGINOSIS ASSOCIATED BACTERIA 2, 3); MOBILUNCUS SPP Not detected [facility] CHA ALBICANS, PARAPSILOSIS, TROPICALIS 0 [facility] CHA ALBICANS, PARAPSILOSIS, TROPICALIS Not detected [facility] CHA GLABRATA 0 [facility] CHA GLABRATA Not detected [facility] [...] [facility] echo transthoracicon ECH echo transthoracic [facility] [address] Echocardiogram Signed Patient: Quentin Bird MR#: [id number] : 2000 Acct:[id number] Age/Sex: 23 / F ADM Date: 05/18/24 Loc: Room: Type: [facility] Attending Dr: Nory Aguilar [employer] WORKER-C Ordering Provider: Nory Aguilar CNP Date of Service: 05/18/24/ ECH/ECH echo transthoracic: tachycardia, abnormal EKG Copies to: MD Nory Ordonez GUN SYNCHRONIZER PM Patient Location: EL : 2000 Gender: Female (MM/DD/YYYY) Age: 23 [...] : Transcribed By: HEATHER Performed At: 05/18/24 1356 Signed By: Hannah Rajan MD 05/18/24 2227 Normal [facility] Alanine aminotransferase [En zymatic activity/volume] in Serum or PlasmaOrdered By: Nory Aguilar on 04-20-2024 ALT [Catalytic activity/Vol] Alanine aminotransferase [Enzymatic activity/volume] in Serum or Plasma 7-52 [facility] Albumin [Mass/volume] in Ser um or Plasma by Bromocresol green (BCG) dye binding methoOrdered By: Nory Aguilar on 04-20-2024 Albumin BCG dye [Mass/Vol] Albumin [Mass/volume] in Serum or Plasma by Bromocresol green (BCG) dye binding metho 3.5-5.7 [facility] Alkaline phosphatase [Enzyma tic activity/volume] in Serum or PlasmaOrdered By: Nory Aguilar on 04-20-2024 ALP [Catalytic activity/Vol] Alkaline phosphatase [Enzymatic activity/volume] in Serum or Plasma 34-104 [facility] Aspartate aminotransferase [ Enzymatic activity/volume] in Serum or PlasmaOrdered By: Nory Aguilar on 04-20-2024 AST [Catalytic activity/Vol] Aspartate aminotransferase [Enzymatic activity/volume] in Serum or Plasma 13-39 [facility] Basophils Auto (Bld) [#/Vol] Ordered By: Nory Aguilar on 04-20-2024 Basophils (Bld) [#/Vol] Automated basoph il count 0.0-0.2 [facility] Basophils/100 WBC Auto (Bld) Ordered By: Nory Aguilar on 04-20-2024 Basophils/100 WBC (Bld) Automated basophil % . [facility] Bilirubin.total [Mass/volume ] in Serum or PlasmaOrdered By: Nory Aguilar on 04-20-2024 Bilirubin [Mass/Vol] Bilirubin.total [Mass/volume] in Serum or Plasma 0.3-1.0 [facility] CBC W Auto Differential pane l (Bld)on 04-20-2024 Basophils (Bld) [#/Vol] 0 10*3/uL 0.0 - 0.2 10*3/uL [facility] Basophils/100 WBC Manual cnt (Syn fld) 0.2 % . [facility] Eosinophils (Bld) [#/Vol] 0.2 10*3/uL 0.0 - 0.45 10*3/uL [facility] Eosinophils/100 WBC Manual cnt (Syn fld) 2 % . [facility] Erythrocyte distribution width (RBC) [Ratio] 13.1 % 11.9 - 15.3 % [facility] Hematocrit (Bld) [Volume fraction] 40.7 % 34.0 - 46.4 % [facility] Hemoglobin (Bld) [Mass/Vol] 14 g/dL 11.8 - 15.4 g/dL [facility] Lymphocytes (Bld) [#/Vol] 1.5 10*3/uL 1.00 - 4.8 10*3/uL [facility] Lymphocytes/100 WBC Manual cnt (Syn fld) 18.3 % . [facility] MCH (RBC) [Entitic mass] 32.2 pg 24.7 - 34.3 pg [facility] MCHC (RBC) [Mass/Vol] 34.5 g/dL 32.0 - 35.0 g/dL [facility] MCV (RBC) [Entitic vol] 93.2 fL 80 - 100 fL [facility] Monocytes (Bld) [#/Vol] 0.6 10*3/uL 0.0 - 0.8 10*3/uL [facility] Monocytes+Macrophages/1 00 WBC Manual cnt (Syn fld) 7.7 % . [facility] Neutrophils (Bld) [#/Vol] 5.8 10*3/uL 1.8 - 7.7 10*3/uL [facility] Neutrophils/100 WBC Manual cnt (Syn fld) 71.8 % . [facility] NRBC 0 /100{WBC} 0 - 0.5 /100{WBC} [facility] Platelet mean volume (Bld) [Entitic vol] 7.9 fL 6.3 - 10.7 fL [facility] Platelets (Bld) [#/Vol] 311 10*3/uL 150 - 450 10*3/uL [facility] RBC LM.HPF (Urine sed) [#/Area] 4.36 10*6/uL 3.60 - 5.00 10*6/uL [facility] WBC (Bld) [#/Vol] 8.1 10*3/uL 3.8 - 11.6 10*3/uL [facility] WBC LM.HPF (Urine sed) [#/Area] 8.1 10*3/uL 3.8 - 11.6 10*3/uL [facility] Calcium [Mass/volume] in Ser um or PlasmaOrdered By: Nory Aguilar on 04-20-2024 Calcium [Mass/Vol] Calcium [Mass/volume ] in Serum or Plasma 8.6-10.3 [facility] Carbon dioxide, total [Moles /volume] in Serum or PlasmaOrdered By: Nory Aguilar on 04-20-2024 CO2 [Moles/Vol] Carbon dioxide, tota l [Moles/volume] in Serum or Plasma 21.0-31.0 [facility] Chloride [Moles/volume] in S benedicto or PlasmaOrdered By: Nory Aguilar on 04-20-2024 Chloride [Moles/Vol] Chloride [Moles/volume] in Serum or Plasma 98-107 [facility] Cholesterol [Mass/volume] in Serum or PlasmaOrdered By: Nory Aguilar on 04-20-2024 Cholesterol [Mass/Vol] Cholesterol [Mass/volume] in Serum or Plasma 140-200 [facility] Comment on above: Chol less than 200 m g/dl low riskChol 201-239 mg/dl borderline riskChol 240 mg/dl and greater high risk Cholesterol in HDL [Mass/vol ume] in Serum or PlasmaOrdered By: Nory Aguilar on 04-20-2024 Cholesterol in HDL [Mass/Vol] Serum or plasma high density lipoprotein (HDL) cholesterol measurement 23-92 [facility] Comment on above: HDL CHOL ATP-III CLA SSIFICATION Cardiovascular RiskHDL > or equal to 60 mg/dL LOWHDL < 40 mg/dL HIGH Cholesterol in LDL Calc [Mas s/Vol]Ordered By: Nory Aguilar on 04-20-2024 Cholesterol in LDL [Mass/Vol] Cholesterol in LDL [Mass/volume] in Serum or Plasma by calculation 0-100 [facility] Comment on above: LDL ATP III CLASSIFI CATIONLDL less than 100 mg/dL OptimalLDL 100-129 mg/dL Near or above optimalLDL 130-159 mg/dL Borderline highLDL 160-189 mg/dL HighLDL greater than 189 mg/dL Very high Cholesterol in VLDL Calc [Ma ss/Vol]Ordered By: Nory Aguilar on 04-20-2024 Cholesterol in VLDL [Mass/Vol] Cholesterol in VLDL [Mass/volume] in Serum or Plasma by calculation [facility] Complete Blood Count Auto Di ffon 04-20-2024 Basophils (Bld) [#/Vol] 0.0 10*3/uL Normal 0.0-0.2 [facility] Comment on above: Result Comment: PERF ORMED BY: [facility] [address] [place] [address] PATHOLOGIST [employer] KIRBY BARRIENTOS M.D. Performed By: #### L IPID, TSH3, CMP, T4F, CBC ####[address] Basophils/100 WBC (Bld) 0.2 % Normal . [facility] Comment on above: Performed By: #### L IPID, TSH3, CMP, T4F, CBC ####[address] Eosinophils (Bld) [#/Vol] 0.2 10*3/uL Normal 0.0-0.45 [facility] Comment on above: Performed By: #### L IPID, TSH3, CMP, T4F, CBC ####[place] [id number] [facility] Eosinophils/100 WBC (Bld) 2.0 % Normal . [facility] Comment on above: Performed By: #### L IPID, TSH3, CMP, T4F, CBC ####[address] Erythrocyte distribution width (RBC) [Ratio] 13.1 % Normal 11.9-15.3 [facility] Comment on above: Performed By: #### L IPID, TSH3, CMP, T4F, CBC ####[address] Hematocrit (Bld) [Volume fraction] 40.7 % Normal 34.0-46.4 [facility] Comment on above: Performed By: #### L IPID, TSH3, CMP, T4F, CBC ####[address] Hemoglobin (Bld) [Mass/Vol] 14.0 g/dL Normal 11.8-15.4 [facility] Comment on above: Performed By: #### L IPID, TSH3, CMP, T4F, CBC ####[address] Lymphocytes (Bld) [#/Vol] 1.5 10*3/uL Normal 1.00-4.8 [facility] Comment on above: Performed By: #### L IPID, TSH3, CMP, T4F, CBC ####[address] Lymphocytes/100 WBC (Bld) 18.3 % Normal . [facility] Comment on above: Performed By: #### L IPID, TSH3, CMP, T4F, CBC ####[address] MCH (RBC) [Entitic mass] 32.2 pg Normal 24.7-34.3 [facility] Comment on above: Performed By: #### L IPID, TSH3, CMP, T4F, CBC ####[address] MCV (RBC) [Entitic vol] 93.2 fL Normal 80-100 [facility] Comment on above: Performed By: #### L IPID, TSH3, CMP, T4F, CBC ####[address] Mean Corpuscular HGB Conc 34.5 g/dL Normal 32.0-35.0 [facility] Comment on above: Performed By: #### L IPID, TSH3, CMP, T4F, CBC ####[address] Monocytes (Bld) [#/Vol] 0.6 10*3/uL Normal 0.0-0.8 [facility] Comment on above: Performed By: #### L IPID, TSH3, CMP, T4F, CBC ####[address] Monocytes/100 WBC (Bld) 7.7 % Normal . [facility] Comment on above: Performed By: #### L IPID, TSH3, CMP, T4F, CBC ####[address] Neutrophils (Bld) [#/Vol] 5.8 10*3/uL Normal 1.8-7.7 [facility] Comment on above: Performed By: #### L IPID, TSH3, CMP, T4F, CBC ####[address] Neutrophils/100 WBC (Bld) 71.8 % Normal . [facility] Comment on above: Performed By: #### L IPID, TSH3, CMP, T4F, CBC ####[address] NRBC% 0.0 /100{WBC} Normal 0-0.5 [facility] Comment on above: Performed By: #### L IPID, TSH3, CMP, T4F, CBC ####[address] Platelet mean volume (Bld) [Entitic vol] 7.9 fL Normal 6.3-10.7 [facility] Comment on above: Performed By: #### L IPID, TSH3, CMP, T4F, CBC ####[address] Platelets (Bld) [#/Vol] 311 10*3/uL Normal 150-450 [facility] Comment on above: Performed By: #### L IPID, TSH3, CMP, T4F, CBC ####[address] RBC (Bld) [#/Vol] 4.36 10*6/uL Normal 3.60-5.00 [facility] Comment on above: Performed By: #### L IPID, TSH3, CMP, T4F, CBC ####[address] WBC (Bld) [#/Vol] 8.1 10*3/uL Normal 3.8-11.6 [facility] Comment on above: Performed By: #### L IPID, TSH3, CMP, T4F, CBC ####[address] Comprehensive Metabolic Pane bridger 04-20-2024 Albumin [Mass/Vol] 4.9 g/dL Normal 3.5-5.7 [facility] Comment on above: Performed By: #### L IPID, TSH3, CMP, T4F, CBC ####[address] Albumin/Globulin [Mass ratio] 2.0 {ratio} Normal [facility] Comment on above: Performed By: #### L IPID, TSH3, CMP, T4F, CBC ####[address] ALP [Catalytic activity/Vol] 95 U/L Normal 34-104 [facility] Comment on above: Performed By: #### L IPID, TSH3, CMP, T4F, CBC ####[address] ALT [Catalytic activity/Vol] 9 U/L Normal 7-52 [facility] Comment on above: Performed By: #### L IPID, TSH3, CMP, T4F, CBC ####[address] Anion gap [Moles/Vol] 12.5 mmol/L Normal 6.0-15.0 [facility] Comment on above: Performed By: #### L IPID, TSH3, CMP, T4F, CBC ####[address] AST [Catalytic activity/Vol] 16 U/L Normal 13-39 [facility] Comment on above: Performed By: #### L IPID, TSH3, CMP, T4F, CBC ####[address] Bilirubin [Mass/Vol] 0.4 mg/dL Normal 0.3-1.0 [facility] Comment on above: Performed By: #### L IPID, TSH3, CMP, T4F, CBC ####[address] Calcium [Mass/Vol] 9.7 mg/dL Normal 8.6-10.3 [facility] Comment on above: Performed By: #### L IPID, TSH3, CMP, T4F, CBC ####[address] Chloride [Moles/Vol] 107 mmol/L Normal 98-107 [facility] Comment on above: Performed By: #### L IPID, TSH3, CMP, T4F, CBC ####[address] CO2 [Moles/Vol] 22.8 mmol/L Normal 21.0-31.0 [facility] Comment on above: Performed By: #### L IPID, TSH3, CMP, T4F, CBC ####[address] Creatinine [Mass/Vol] 0.90 mg/dL Normal 0.60-1.20 [facility] Comment on above: Performed By: #### L IPID, TSH3, CMP, T4F, CBC ####[address] GFR/1.73 sq M.predicted MDRD (S/P/Bld) [Vol rate/Area] mL/min/{1.73_m2} Normal [facility] Comment on above: Performed By: #### L IPID, TSH3, CMP, T4F, CBC ####[address] Globulin (S) [Mass/Vol] 2.5 g/dL Normal [facility] Comment on above: Performed By: #### L IPID, TSH3, CMP, T4F, CBC ####[address] Glucose [Mass/Vol] 88 mg/dL Normal 70-100 [facility] Comment on above: Result Comment: [facility] Glucose Reference Range is dependent on time and content of last meal. Glucose of more than 200 mg/dL in a nonstressed, ambulatory subject supports the diagnosis of Diabetes Mellitus. ADA recommended reference range Performed By: #### L IPID, TSH3, CMP, T4F, CBC ####[address] Potassium [Moles/Vol] 4.3 mmol/L Normal 3.5-5.1 [facility] Comment on above: Performed By: #### L IPID, TSH3, CMP, T4F, CBC ####[address] Protein [Mass/Vol] 7.4 g/dL Normal 6.4-8.9 [facility] Comment on above: Performed By: #### L IPID, TSH3, CMP, T4F, CBC ####[address] Sodium [Moles/Vol] 138 mmol/L Normal 136-145 [facility] Comment on above: Performed By: #### L IPID, TSH3, CMP, T4F, CBC ####[address] Urea nitrogen [Mass/Vol] 7 mg/dL Normal 7-25 [facility] Comment on above: Performed By: #### L IPID, TSH3, CMP, T4F, CBC ####[address] [place] [address] [facility] Creatinine [Mass/volume] in Serum or PlasmaOrdered By: Nory Aguilar on 04-20-2024 Creatinine [Mass/Vol] Creatinine [Mass/volume] in Serum or Plasma 0.60-1.20 [facility] ECG 12 lead ECGon 04-20-2024 ECG 12 lead ECG [facility] [address] [place] [address] Electrocardiograph Report Signed Patient: Quentin Bird MR#: [id number] : 2000 Acct:[id number] Age/Sex: 23 / F ADM Date: 04/20/24 Loc: Room: Type: [facility] Attending Dr: Nory Aguilar [employer] WORK[employer]C Ordering Provider: Nory Aguilar CNP Date of [...] infarct Abnormal ECG Confirmed by Hannah Rajan ([id number]) on 04/20/2024 6:37:52 PM Referred By: Electronically Signed By: Hannah Rajan Transcribed By: MUS Signed By Hannah Rajan MD 5 [id number] Normal [facility] Eosinophils Auto (Bld) [#/Vo l]Ordered By: Nory Aguilar on 04-20-2024 Eosinophils (Bld) [#/Vol] Automated eosinophil count 0.0-0.45 [facility] Eosinophils/100 WBC Auto (Bl d)Ordered By: Nory Aguilar on 04-20-2024 Eosinophils/100 WBC (Bld) Automated eosinophil % . [facility] Erythrocyte distribution wid th Auto (RBC) [Ratio]Ordered By: Nory Aguilar on 04-20-2024 Erythrocyte distribution width (RBC) [Ratio] Erythrocyte distribution width [Ratio] by Automated count 11.9-15.3 [facility] Free T4 (Free Thyroxine)on 0 04-20-2024 Free T4 [Mass/Vol] 0.75 ng/dL Normal 0.61-1.12 [facility] Comment on above: Performed By: #### L IPID, TSH3, CMP, T4F, CBC ####[facility] [id number] [place] [id number] [facility] Globulin Calc (S) [Mass/Vol] Ordered By: Nory Aguilar on 04-20-2024 Globulin (S) [Mass/Vol] Serum globulin measurement by calculation (mass/volume) [facility] Glucose [Mass/volume] in Ser um or PlasmaOrdered By: Nory Aguilar on 04-20-2024 Glucose [Mass/Vol] Glucose [Mass/volume ] in Serum or Plasma 70-100 [facility] Comment on above: ADA recommended refe rence rangeRandom Glucose Reference Range is dependent on time and content of last meal. Glucose of more than 200 mg/dL in a nonstressed, ambulatory subject supports the diagnosis of Diabetes Mellitus. Hematocrit Auto (Bld) [Volum e fraction]Ordered By: Nory Aguilar on 04-20-2024 Hematocrit (Bld) [Volume fraction] Hematocrit [Volume Fraction] of Blood by Automated count 34.0-46.4 [facility] Hemoglobin [Mass/volume] in BloodOrdered By: Nory Aguilar on 04-20-2024 Hemoglobin (Bld) [Mass/Vol] Hemoglobin [Mass/volume] in Blood 11.8-15.4 [facility] Leukocytes [#/volume] correc chandan for nucleated erythrocytes in Blood by Automated counOrdered By: Nory Aguilar on 04-20-2024 WBC corrected for nucl RBC Auto (Bld) [#/Vol] Leukocytes [#/volume] corrected for nucleated erythrocytes in Blood by Automated coun 3.8-11.6 [facility] Lipid Panelon 04-20-2024 Cholesterol [Mass/Vol] 155 mg/dL Normal 140-200 [facility] Comment on above: Result Comment: Chol less than 200 mg/dl low risk Chol 201-239 mg/dl borderline risk Chol 240 mg/dl and greater high risk Performed By: #### L IPID, TSH3, CMP, T4F, CBC ####[place] [id number] [address] Cholesterol in HDL [Mass/Vol] 62 mg/dL Normal 23-92 [facility] Comment on above: Result Comment: HDL CHOL ATP-III CLASSIFICATION Cardiovascular Risk HDL > or equal to 60 mg/dL LOW HDL < 40 mg/dL HIGH Performed By: #### L IPID, TSH3, CMP, T4F, CBC ####[address] Cholesterol.total/Nayeli sterol in HDL [Mass ratio] 2.5 {ratio} Normal <5.0 [facility] Comment on above: Performed By: #### L IPID, TSH3, CMP, T4F, CBC ####[address] LDL Cholesterol,Calculated 71 mg/dL Normal 0-100 [facility] Comment on above: Result Comment: LDL ATP III CLASSIFICATION LDL less than 100 mg/dL Optimal LDL 100-129 mg/dL Near or above optimal LDL 130-159 mg/dL Borderline high LDL 160-189 mg/dL High LDL greater than 189 mg/dL Very high Performed By: #### L IPID, TSH3, CMP, T4F, CBC ####[address] Triglyceride w/Reflex 112 mg/dL Normal 0-149 [facility] Comment on above: Result Comment: TRIG ATP III CLASSIFICATION TRIG less than 150 mg/dL Normal TRIG 150-199 mg/dL Borderline high TRIG 200-500 mg/dL High TRIG greater than 500 mg/dL Very high Standard traceable to the Center for Disease Conrtrol and Prevention (CDC) test method. Performed By: #### L IPID, TSH3, CMP, T4F, CBC ####[place] [id number] [facility] VLDL CHOLESTEROL 22 mg/dL Normal [facility] Comment on above: Performed By: #### L IPID, TSH3, CMP, T4F, CBC ####[place] [id number] [facility] Lymphocytes Auto (Bld) [#/Vo l]Ordered By: Nory Aguilar on 04-20-2024 Lymphocytes (Bld) [#/Vol] Lymphocytes [#/volume] in Blood by Automated count 1.00-4.8 [facility] Lymphocytes/100 WBC Auto (Bl d)Ordered By: Nory Aguilar on 04-20-2024 Lymphocytes/100 WBC (Bld) Lymphocytes/100 leukocytes in Blood by Automated count . [facility] MCH Auto (RBC) [Entitic mass ]Ordered By: Nory Aguilar on 04-20-2024 MCH (RBC) [Entitic mass] MCH [Entitic mass] by Automated count 24.7-34.3 [facility] MCHC Auto (RBC) [Mass/Vol]Or dered By: Nory Aguilar on 04-20-2024 MCHC (RBC) [Mass/Vol] MCHC [Mass/volume] by Automated count 32.0-35.0 [facility] MCV Auto (RBC) [Entitic vol] Ordered By: Nory Aguilar on 04-20-2024 MCV (RBC) [Entitic vol] MCV [Entitic vol ume] by Automated count 80-100 [facility] Monocytes Auto (Bld) [#/Vol] Ordered By: Nory Aguilar on 04-20-2024 Monocytes (Bld) [#/Vol] Automated blood monocyte count 0.0-0.8 [facility] Monocytes/100 WBC Auto (Bld) Ordered By: Nory Aguilar on 04-20-2024 Monocytes/100 WBC (Bld) Automated monocyte % . [facility] Neutrophils Auto (Bld) [#/Vo l]Ordered By: Nory Aguilar on 04-20-2024 Neutrophils (Bld) [#/Vol] Neutrophils [#/volume] in Blood by Automated count 1.8-7.7 [facility] Neutrophils/100 WBC Auto (Bl d)Ordered By: Nory Aguilar on 04-20-2024 Neutrophils/100 WBC (Bld) Automated neutrophil % . [facility] No Panel InformationOrdered By: Nory Aguilar on 04-20-2024 Estimated GFR (CKD-EPI) > 60.0 mL/Min [facility] Creatinine Clearance (Chem N/A [facility] Nucleated erythrocytes [Pres ence] in Blood by Automated countOrdered By: Nory Aguilar on 04-20-2024 Nucleated RBC Auto Ql (Bld) Nucleated erythrocytes [Presence] in Blood by Automated count 0-0.5 [facility] Platelet mean volume Auto (B ld) [Entitic vol]Ordered By: Nory Aguilar on 04-20-2024 Platelet mean volume (Bld) [Entitic vol] Platelet mean volume [Entitic volume] in Blood by Automated count 6.3-10.7 [facility] Platelets Auto (Bld) [#/Vol] Ordered By: Nory Aguilar on 04-20-2024 Platelets (Bld) [#/Vol] Platelets [#/vol ume] in Blood by Automated count 150-450 [facility] Potassium [Moles/volume] in Serum or PlasmaOrdered By: Nory Aguilar on 04-20-2024 Potassium [Moles/Vol] Potassium [Moles/volume] in Serum or Plasma 3.5-5.1 [facility] Protein [Mass/volume] in Ser um or PlasmaOrdered By: Nory Aguilar on 04-20-2024 Protein [Mass/Vol] Protein [Mass/volume ] in Serum or Plasma 6.4-8.9 [facility] RBC Auto (Bld) [#/Vol]Ordere d By: Nory Aguilar on 04-20-2024 RBC (Bld) [#/Vol] Erythrocytes [#/volume] in Blood by Automated count 3.60-5.00 [facility] Serum or plasma albumin/glob ulin mass ratioOrdered By: Nory Aguilar on 04-20-2024 Albumin/Globulin [Mass ratio] Serum or plasma albumin/globulin mass ratio [facility] Serum or plasma anion gap de terminationOrdered By: Nory Aguilar on 04-20-2024 Anion gap [Moles/Vol] Serum or plasma an ion gap determination 6.0-15.0 [facility] Serum or plasma total choles terol/high density lipoprotein (HDL) cholesterol mass ratOrdered By: Nory Aguilar on 04-20-2024 Cholesterol.total/Nayeli sterol in HDL [Mass ratio] Serum or plasma total cholesterol/high density lipoprotein (HDL) cholesterol mass rat <5.0 [facility] Sodium [Moles/volume] in Ser um or PlasmaOrdered By: Nory Aguilar on 04-20-2024 Sodium [Moles/Vol] Sodium [Moles/volume ] in Serum or Plasma 136-145 [facility] Thyroid Stimulating Hormoneo n 04-20-2024 TSH Qn 0.63 m[IU]/L Normal 0.45-5.33 [facility] Comment on above: Result Comment: PERF ORMED BY: [facility] [address] [facility] [place] [id number] PATHOLOGIST [employer]EL[employer] KIRBY BARRIENTOS M.D. Performed By: #### L IPID, TSH3, CMP, T4F, CBC ####[facility] [id number] [place] [address] [facility] Thyrotropin [Units/volume] i n Serum or PlasmaOrdered By: Nory Aguilar on 04-20-2024 TSH Qn Thyrotropin [Units/volume] in Serum or Plasma 0.45-5.33 [facility] Thyroxine (T4) free [Mass/vo lume] in Serum or PlasmaOrdered By: Nory Aguilar on 04-20-2024 Free T4 [Mass/Vol] Thyroxine (T4) free [Mass/volume] in Serum or Plasma 0.61-1.12 [facility] Triglyceride [Mass/volume] i n Serum or PlasmaOrdered By: Nory Aguilar on 04-20-2024 Triglyceride [Mass/Vol] Triglyceride [Mass/volume] in Serum or Plasma 0-149 [facility] Comment on above: TRIG ATP III CLASSIF ICATIONTRIG less than 150 mg/dL NormalTRIG 150-199 mg/dL Borderline highTRIG 200-500 mg/dL High TRIG greater than 500 mg/dL Very highStandard traceable to the Center for Disease Conrtrol and Prevention (CDC) test method. Urea nitrogen [Mass/volume] in Serum or PlasmaOrdered By: Nory Aguilar on 04-20-2024 Urea nitrogen [Mass/Vol] Urea nitrogen [Mass/volume] in Serum or Plasma 7-25 [facility] WBC Auto (Bld) [#/Vol]Ordere d By: Nory Aguilar on 04-20-2024 WBC (Bld) [#/Vol] Leukocytes [#/volume ] in Blood by Automated count 3.8-11.6 [facility] Alanine aminotransferase [En zymatic activity/volume] in Serum or PlasmaOrdered By: [place] Manrique on 03-16-2024 ALT [Catalytic activity/Vol] Alanine aminotransferase [Enzymatic activity/volume] in Serum or Plasma 7-52 [facility] Albumin [Mass/volume] in Ser um or Plasma by Bromocresol green (BCG) dye binding methoOrdered By: Valdez Manrique on 03-16-2024 Albumin BCG dye [Mass/Vol] Albumin [Mass/volume] in Serum or Plasma by Bromocresol green (BCG) dye binding metho 3.5-5.7 [facility] Alkaline phosphatase [Enzyma tic activity/volume] in Serum or PlasmaOrdered By: Valdez Manrique on 03-16-2024 ALP [Catalytic activity/Vol] Alkaline phosphatase [Enzymatic activity/volume] in Serum or Plasma 34-104 [facility] Appearance of UrineOrdered B y: Valdez Manrique on 03-16-2024 Appearance (U) Urine appearance Clear [facility] Aspartate aminotransferase [ Enzymatic activity/volume] in Serum or PlasmaOrdered By: Valdez Manrique on 03-16-2024 AST [Catalytic activity/Vol] Aspartate aminotransferase [Enzymatic activity/volume] in Serum or Plasma 13-39 [facility] Bacteria [Presence] in Urine by AutomatedOrdered By: Valdez Manrique on 03-16-2024 Bacteria Auto Ql (U) Bacteria [Presence] in Urine by Automated None Seen [facility] Basophils Auto (Bld) [#/Vol] Ordered By: Valdez Manrique on 03-16-2024 Basophils (Bld) [#/Vol] Automated basoph il count 0.0-0.2 [facility] Basophils/100 WBC Auto (Bld) Ordered By: Valdez Manrique on 03-16-2024 Basophils/100 WBC (Bld) Automated basophil % . [facility] Bilirubin Test strip Ql (U)O rdered By: Valdez Manrique on 03-16-2024 Bilirubin Ql (U) Bilirubin.total [Presence] in Urine by Test strip Negative [facility] Bilirubin.total [Mass/volume ] in Serum or PlasmaOrdered By: Valdez Manrique on 03-16-2024 Bilirubin [Mass/Vol] Bilirubin.total [Mass/volume] in Serum or Plasma 0.3-1.0 [facility] COVID Cepheid NegativeOrdere d By: Valdez Manrique on 03-16-2024 SARS-CoV-2 (COVID-19) Ab IA Ql COVID Cepheid Negative [facility] Comment on above: This is a duplicate [...] or Cepheid Disclaimer revoked sooner. PERFORMED BY: [address] [id number] PATHOLOGIST [employer] KIRBY BARRIENTOS M.D. Normal [facility] Comment on above: Performed By: #### C OVID19 FLU RSV, CEPHEID NEG #### [address] [address] [place] Calcium [Mass/volume] in Ser um or PlasmaOrdered By: Valdez Manrique on 03-16-2024 Calcium [Mass/Vol] Calcium [Mass/volume ] in Serum or Plasma 8.6-10.3 [facility] Carbon dioxide, total [Moles /volume] in Serum or PlasmaOrdered By: Valdez Manrique on 03-16-2024 CO2 [Moles/Vol] Carbon dioxide, tota l [Moles/volume] in Serum or Plasma 21.0-31.0 [facility] Cepheid COVID PCR Negativeon 03-16-2024 SARS-CoV-2 (COVID-19) RNA LINK+probe Ql (Unsp spec) Negative Normal Negative [facility] Comment on above: Result Comment: This is a duplicate Cepheid Xpert Xpress CoV-2/Flu/RSV Plus RNA by RT-PCR result to be used for statistical tracking purpose only. PERFORMED BY: [address] [id number] PATHOLOGIST [employer]EL[employer] KIRBY BARRIENTOS M.D. Performed By: #### C OVID19 FLU RSV, CEPHEID NEG #### [address] [address] [place] Chloride [Moles/volume] in S benedicto or PlasmaOrdered By: Valdez Manrique on 03-16-2024 Chloride [Moles/Vol] Chloride [Moles/volume] in Serum or Plasma 98-107 [facility] Color Auto (U)Ordered By: Maikel Manrique on 03-16-2024 Color (U) Color of Urine by Auto Yellow [facility] Complete Blood Count Auto Di ffon 03-16-2024 Basophils (Bld) [#/Vol] 0.0 10*3/uL Normal 0.0-0.2 [facility] Comment on above: Result Comment: PERF ORMED BY: [facility] [address] [place] [address] PATHOLOGIST [employer] KIRBY BARRIENTOS M.D. Performed By: #### C MP, LIPASE, CBC ####[address] Basophils/100 WBC (Bld) 0.1 % Normal . T shilpa [facility] Comment on above: Performed By: #### C MP, LIPASE, CBC ####[address] Eosinophils (Bld) [#/Vol] 0.0 10*3/uL Normal 0.0-0.45 [facility] Comment on above: Performed By: #### C MP, LIPASE, CBC ####[address] Eosinophils/100 WBC (Bld) 0.0 % Normal . [facility] Comment on above: Performed By: #### C MP, LIPASE, CBC ####[place] [id number] [facility] Erythrocyte distribution width (RBC) [Ratio] 13.5 % Normal 11.9-15.3 [facility] Comment on above: Performed By: #### C MP, LIPASE, CBC ####[address] Hematocrit (Bld) [Volume fraction] 41.8 % Normal 34.0-46.4 [facility] Comment on above: Performed By: #### C MP, LIPASE, CBC ####[address] Hemoglobin (Bld) [Mass/Vol] 14.4 g/dL Normal 11.8-15.4 [facility] Comment on above: Performed By: #### C MP, LIPASE, CBC ####[address] Lymphocytes (Bld) [#/Vol] 0.2 10*3/uL Low 1.00-4.8 [facility] Comment on above: Performed By: #### C MP, LIPASE, CBC ####[address] Lymphocytes/100 WBC (Bld) 1.1 % Normal . [facility] Comment on above: Performed By: #### C MP, LIPASE, CBC ####[address] MCH (RBC) [Entitic mass] 32.1 pg Normal 24.7-34.3 [facility] Comment on above: Performed By: #### C MP, LIPASE, CBC ####[address] MCV (RBC) [Entitic vol] 92.9 fL Normal 80-100 [facility] Comment on above: Performed By: #### C MP, LIPASE, CBC ####[address] Mean Corpuscular HGB Conc 34.5 g/dL Normal 32.0-35.0 [facility] Comment on above: Performed By: #### C MP, LIPASE, CBC ####[address] Monocytes (Bld) [#/Vol] 0.6 10*3/uL Normal 0.0-0.8 [facility] Comment on above: Performed By: #### C MP, LIPASE, CBC ####[address] Monocytes/100 WBC (Bld) 21.34 % High 0.00-20.00 T shilpa [facility] Comment on above: Result Comment: For adults in ED, MDW > 20.0 may be associated with a higher risk of sepsis during the first 12 hrs of hospital admission Performed By: #### C MP, LIPASE, CBC ####[address] Monocytes/100 WBC (Bld) 3.4 % Normal . T shilpa [facility] Comment on above: Performed By: #### C MP, LIPASE, CBC ####[address] Neutrophils (Bld) [#/Vol] 15.6 10*3/uL High 1.8-7.7 [facility] Comment on above: Performed By: #### C MP, LIPASE, CBC ####[address] Neutrophils/100 WBC (Bld) 95.4 % Normal . [facility] Comment on above: Performed By: #### C MP, LIPASE, CBC ####[address] NRBC% 0.0 /100{WBC} Normal 0-0.5 [facility] Comment on above: Performed By: #### C MP, LIPASE, CBC ####[address] Platelet mean volume (Bld) [Entitic vol] 8.3 fL Normal 6.3-10.7 [facility] Comment on above: Performed By: #### C MP, LIPASE, CBC ####[address] Platelets (Bld) [#/Vol] 265 10*3/uL Normal 150-450 [facility] Comment on above: Performed By: #### C MP, LIPASE, CBC ####[address] RBC (Bld) [#/Vol] 4.50 10*6/uL Normal 3.60-5.00 [facility] Comment on above: Performed By: #### C MP, LIPASE, CBC ####[address] WBC (Bld) [#/Vol] 16.3 10*3/uL High 3.8-11.6 [facility] Comment on above: Performed By: #### C MP, LIPASE, CBC ####[address] Comprehensive Metabolic Pane bridger 03-16-2024 Albumin [Mass/Vol] 5.0 g/dL Normal 3.5-5.7 [facility] Comment on above: Performed By: #### C MP, LIPASE, CBC ####[address] Albumin/Globulin [Mass ratio] 1.8 {ratio} Normal [facility] Comment on above: Performed By: #### C MP, LIPASE, CBC ####[address] ALP [Catalytic activity/Vol] 76 U/L Normal 34-104 [facility] Comment on above: Performed By: #### C MP, LIPASE, CBC ####[address] ALT [Catalytic activity/Vol] 12 U/L Normal 7-52 [facility] Comment on above: Performed By: #### C MP, LIPASE, CBC ####[address] Anion gap [Moles/Vol] 11.5 mmol/L Normal 6.0-15.0 e [facility] Comment on above: Performed By: #### C MP, LIPASE, CBC ####[address] AST [Catalytic activity/Vol] 17 U/L Normal 13-39 [facility] Comment on above: Performed By: #### C MP, LIPASE, CBC ####[address] Bilirubin [Mass/Vol] 0.5 mg/dL Normal 0.3-1.0 [facility] Comment on above: Performed By: #### C MP, LIPASE, CBC ####[address] Calcium [Mass/Vol] 9.1 mg/dL Normal 8.6-10.3 [facility] Comment on above: Performed By: #### C MP, LIPASE, CBC ####[address] Chloride [Moles/Vol] 107 mmol/L Normal 98-107 [facility] Comment on above: Performed By: #### C MP, LIPASE, CBC ####[address] CO2 [Moles/Vol] 21.1 mmol/L Normal 21.0-31.0 [facility] Comment on above: Performed By: #### C MP, LIPASE, CBC ####[address] Creatinine [Mass/Vol] 0.93 mg/dL Normal 0.60-1.20 [facility] Comment on above: Performed By: #### C MP, LIPASE, CBC ####[address] Creatinine Clr Calc Pharmacy 84.29 Normal [facility] Comment on above: Performed By: #### C MP, LIPASE, CBC ####[address] GFR/1.73 sq M.predicted MDRD (S/P/Bld) [Vol rate/Area] mL/min/{1.73_m2} Normal [facility] Comment on above: Performed By: #### C MP, LIPASE, CBC ####[address] Globulin (S) [Mass/Vol] 2.8 g/dL Normal T he [facility] Comment on above: Performed By: #### C MP, LIPASE, CBC ####[address] Glucose [Mass/Vol] 122 mg/dL High 70-100 [facility] Comment on above: Result Comment: [place] Glucose Reference Range is dependent on time and content of last meal. Glucose of more than 200 mg/dL in a nonstressed, ambulatory subject supports the diagnosis of Diabetes Mellitus. ADA recommended reference range Performed By: #### C MP, LIPASE, CBC ####[facility] Potassium [Moles/Vol] 3.6 mmol/L Normal 3.5-5.1 [facility] Comment on above: Performed By: #### C MP, LIPASE, CBC ####[place] [id number] [address] Protein [Mass/Vol] 7.8 g/dL Normal 6.4-8.9 [facility] Comment on above: Performed By: #### C MP, LIPASE, CBC ####[place] [id number] [address] Sodium [Moles/Vol] 136 mmol/L Normal 136-145 [facility] Comment on above: Performed By: #### C MP, LIPASE, CBC ####[place] [id number] [address] Urea nitrogen [Mass/Vol] 15 mg/dL Normal 7-25 [facility] Comment on above: Performed By: #### C MP, LIPASE, CBC ####[place] [id number] [address] Creatinine [Mass/volume] in Serum or PlasmaOrdered By: Valedz Manrique on 03-16-2024 Creatinine [Mass/Vol] Creatinine [Mass/volume] in Serum or Plasma 0.60-1.20 [facility] Dipstick and Microscopicon 0 03-16-2024 Appearance (U) Clear Normal Clear [facility] Comment on above: Order Comment: Name Collection Type:: Clean-Voided Midstream Performed By: #### A DDONUAPLUS, UHCG #### [facility] [address] Bacteria,Urine Rare Normal None Seen [facility] Comment on above: Order Comment: Name Collection Type:: Clean-Voided Midstream Performed By: #### A DDONUAPLUS, UHCG #### [place] [address] [place] Bilirubin,Urine Negative Normal Negative [facility] Comment on above: Order Comment: Name Collection Type:: Clean-Voided Midstream Performed By: #### A DDONUAPLUS, UHCG #### [place] [address] [place] Color (U) Yellow Normal Yellow [facility] Comment on above: Order Comment: Name Collection Type:: Clean-Voided Midstream Performed By: #### A DDONUAPLUS, UHCG #### [address] Glucose Ql (U) Normal Normal Normal [facility] Comment on above: Order Comment: Name Collection Type:: Clean-Voided Midstream Performed By: #### A DDONUAPLUS, UHCG #### [place] [address] [place] Hyaline Casts,Urine None Normal 0-8 [facility] Comment on above: Order Comment: Name Collection Type:: Clean-Voided Midstream Performed By: #### A DDONUAPLUS, UHCG #### [address] Ketones Ql (U) 2+ High Negative [facility] Comment on above: Order Comment: Name Collection Type:: Clean-Voided Midstream Performed By: #### A DDONUAPLUS, UHCG #### [address] Leukocyte esterase Test strip Ql (U) 1+ High Negative [facility] Comment on above: Order Comment: Name Collection Type:: Clean-Voided Midstream Performed By: #### A DDONUAPLUS, UHCG #### [address] Mucus,Urine 1+ Critically abnormal [facility] Comment on above: Order Comment: Name Collection Type:: Clean-Voided Midstream Performed By: #### A DDONUAPLUS, UHCG #### [address] Nitrite,Urine Negative Normal Negative [facility] Comment on above: Order Comment: Name Collection Type:: Clean-Voided Midstream Performed By: #### A DDONUAPLUS, UHCG #### [address] Occult Blood,Urine Negative Normal Negative [facility] Comment on above: Order Comment: Name Collection Type:: Clean-Voided Midstream Performed By: #### A DDONUAPLUS, UHCG #### [address] pH (U) 6.0 [pH] Normal 5.0-9.0 [facility] Comment on above: Order Comment: Name Collection Type:: Clean-Voided Midstream Performed By: #### A DDONUAPLUS, UHCG #### [address] Protein (U) [Mass/Vol] 20 mg/dL High Negative Th e [facility] Comment on above: Order Comment: Name Collection Type:: Clean-Voided Midstream Performed By: #### A DDONUAPLUS, UHCG #### [address] RBC,Urine 1 [HPF] Normal 0-4 [facility] Comment on above: Order Comment: Name Collection Type:: Clean-Voided Midstream Performed By: #### A DDONUAPLUS, UHCG #### [address] Specificy [place],Urine 1.030 Normal 1.001-1.030 [facility] Comment on above: Order Comment: Name Collection Type:: Clean-Voided Midstream Performed By: #### A DDONUAPLUS, UHCG #### [address] Squamous Epithelial Cell,Urine 10 [HPF] High 0-2 [facility] Comment on above: Order Comment: Name Collection Type:: Clean-Voided Midstream Performed By: #### A DDONUAPLUS, UHCG #### [facility] [address] Urobilinogen,Urine Normal Normal Normal [facility] Comment on above: Order Comment: Name Collection Type:: Clean-Voided Midstream Performed By: #### A DDONUAPLUS, UHCG #### [facility] [address] WBC,Urine 1 [HPF] Normal 0-4 [facility] Comment on above: Order Comment: Name Collection Type:: Clean-Voided Midstream Performed By: #### A DDONUAPLUS, UHCG #### [facility] [address] [place] [address] [place] Eosinophils Auto (Bld) [#/Vo l]Ordered By: Valdez Manrique on 03-16-2024 Eosinophils (Bld) [#/Vol] Automated eosinophil count 0.0-0.45 [facility] Eosinophils/100 WBC Auto (Bl d)Ordered By: Valdez Manrique on 03-16-2024 Eosinophils/100 WBC (Bld) Automated eosinophil % . [facility] Epithelial cells.squamous [# /area] in Urine sediment by Automated countOrdered By: Valdez Manrique on 03-16-2024 Epithelial cells.squamous Auto (Urine sed) [#/Area] Epithelial cells.squamous [#/area] in Urine sediment by Automated count High 0-2 [facility] Erythrocyte distribution wid th Auto (RBC) [Ratio]Ordered By: Valdez Manrique on 03-16-2024 Erythrocyte distribution width (RBC) [Ratio] Erythrocyte distribution width [Ratio] by Automated count 11.9-15.3 [facility] Erythrocytes [#/area] in Uri ne sediment by Automated countOrdered By: Valdez Manrique on 03-16-2024 RBC Auto (Urine sed) [#/Area] Erythrocytes [#/area] in Urine sediment by Automated count 0-4 [facility] Globulin Calc (S) [Mass/Vol] Ordered By: Valdez Manrique on 03-16-2024 Globulin (S) [Mass/Vol] Serum globulin measurement by calculation (mass/volume) [facility] Glucose [Mass/volume] in Ser um or PlasmaOrdered By: Valdez Manrique on 03-16-2024 Glucose [Mass/Vol] Glucose [Mass/volume ] in Serum or Plasma High 70-100 [facility] Comment on above: ADA recommended refe rence rangeRandom Glucose Reference Range is dependent on time and content of last meal. Glucose of more than 200 mg/dL in a nonstressed, ambulatory subject supports the diagnosis of Diabetes Mellitus. Glucose [Mass/volume] in Uri ne by Test stripOrdered By: Valdez Manrique on 03-16-2024 Glucose Test strip (U) [Mass/Vol] Glucose [Mass/volume] in Urine by Test strip Normal [facility] HCG ( test) IA.rapi d Ql (U)Ordered By: ITZEL MORAN on 03-16-2024 HCG ( test) Ql (U) Urine human chorionic gonadotropin (hCG) detection by immunoassay [facility] HCG,Urineon 03-16-2024 Beta HCG ( test) Ql (U) Negative Normal [facility] Comment on above: Order Comment: Name Collection Type:: Clean-Voided Midstream Result Comment: PERF ORMED BY: [place] [address] PATHOLOGIST [employer]EL[employer] KIRBY BARRIENTOS M.D. Performed By: #### A DDONUAPLUSGRIFFIN [facility] #### [address] Hematocrit Auto (Bld) [Volum e fraction]Ordered By: Valdez Manrqiue on 03-16-2024 Hematocrit (Bld) [Volume fraction] Hematocrit [Volume Fraction] of Blood by Automated count 34.0-46.4 [facility] Hemoglobin Test strip Ql (U) Ordered By: Valdez Manrique on 03-16-2024 Hemoglobin Ql (U) Hemoglobin [Presence ] in Urine by Test strip Negative [facility] Hemoglobin [Mass/volume] in BloodOrdered By: Valdez Manrique on 03-16-2024 Hemoglobin (Bld) [Mass/Vol] Hemoglobin [Mass/volume] in Blood 11.8-15.4 [facility] Hyaline casts [#/area] in Ur ine sediment by Automated countOrdered By: Valdez Manrique on 03-16-2024 Hyaline casts Auto (Urine sed) [#/Area] Hyaline casts [#/area] in Urine sediment by Automated count 0-8 [facility] Ketones Test strip Ql (U)Ord ered By: Valdez Manrique on 03-16-2024 Ketones Ql (U) Ketones [Presence] i n Urine by Test strip High Negative [facility] Leukocyte esterase [Presence ] in Urine by Test stripOrdered By: Valdez Manrique on 03-16-2024 Leukocyte esterase Test strip Ql (U) Leukocyte esterase [Presence] in Urine by Test strip High Negative [facility] Leukocytes [#/area] in Urine sediment by Automated countOrdered By: Valdez Manrique on 03-16-2024 WBC Auto (Urine sed) [#/Area] Leukocytes [#/area] in Urine sediment by Automated count 0-4 [facility] Leukocytes [#/volume] correc chandan for nucleated erythrocytes in Blood by Automated counOrdered By: Valdez Manrique on 03-16-2024 WBC corrected for nucl RBC Auto (Bld) [#/Vol] Leukocytes [#/volume] corrected for nucleated erythrocytes in Blood by Automated coun High 3.8-11.6 [facility] Lipaseon 03-16-2024 Lipase [Catalytic activity/Vol] 20.0 U/L Normal 11.0-82.0 [facility] Comment on above: Result Comment: PERF ORMED BY: [facility] [address] [place] [address] PATHOLOGIST [employer]EL[employer] KIRBY BARRIENTOS M.D. Performed By: #### C MP, LIPASE, CBC ####[facility] [place] [id number] [facility] Lipase [Enzymatic activity/v olume] in Serum or PlasmaOrdered By: Valdez Manrique on 03-16-2024 Lipase [Catalytic activity/Vol] Lipase [Enzymatic activity/volume] in Serum or Plasma 11.0-82.0 [facility] Lymphocytes Auto (Bld) [#/Vo l]Ordered By: Valdez Manrique on 03-16-2024 Lymphocytes (Bld) [#/Vol] Lymphocytes [#/volume] in Blood by Automated count Low 1.00-4.8 [facility] Lymphocytes/100 WBC Auto (Bl d)Ordered By: Valdez Manrique on 03-16-2024 Lymphocytes/100 WBC (Bld) Lymphocytes/100 leukocytes in Blood by Automated count . [facility] MCH Auto (RBC) [Entitic mass ]Ordered By: Valdez Manrique on 03-16-2024 MCH (RBC) [Entitic mass] MCH [Entitic mass] by Automated count 24.7-34.3 [facility] MCHC Auto (RBC) [Mass/Vol]Or dered By: Valdez Manrique on 03-16-2024 MCHC (RBC) [Mass/Vol] MCHC [Mass/volume] by Automated count 32.0-35.0 [facility] MCV Auto (RBC) [Entitic vol] Ordered By: Valdez Manrique on 03-16-2024 MCV (RBC) [Entitic vol] MCV [Entitic vol ume] by Automated count 80-100 [facility] Monocyte distribution width [Entitic volume] in Blood by AutomatedOrdered By: Valdez Manrique on 03-16-2024 Monocyte distribution width Auto (Bld) [Entitic vol] Monocyte distribution width [Entitic volume] in Blood by Automated High 0.00-20.00 [facility] Comment on above: For adults in ED, MD W > 20.0 may be associated with a higher risk of sepsis during the first 12 hrs of hospital admission Monocytes Auto (Bld) [#/Vol] Ordered By: Valdez Manrique on 03-16-2024 Monocytes (Bld) [#/Vol] Automated blood monocyte count 0.0-0.8 [facility] Monocytes/100 WBC Auto (Bld) Ordered By: Valdez Manrique on 03-16-2024 Monocytes/100 WBC (Bld) Automated monocyte % . [facility] Mucus [Presence] in Urine by AutomatedOrdered By: Valdez Manrique on 03-16-2024 Mucus Auto Ql (U) Mucus [Presence] in Urine by Automated Abnormal [facility] Neutrophils Auto (Bld) [#/Vo l]Ordered By: Valdez Manrique on 03-16-2024 Neutrophils (Bld) [#/Vol] Neutrophils [#/volume] in Blood by Automated count High 1.8-7.7 [facility] Neutrophils/100 WBC Auto (Bl d)Ordered By: Valdez Manrique on 03-16-2024 Neutrophils/100 WBC (Bld) Automated neutrophil % . [facility] Nitrite Test strip Ql (U)Ord ered By: Valdez Manrique on 03-16-2024 Nitrite Ql (U) Nitrite [Presence] i n Urine by Test strip Negative [facility] No Panel InformationOrdered By: Valdez Manrique on 03-16-2024 Estimated GFR (CKD-EPI) > 60.0 mL/Min [facility] Creatinine Clearance (Chem 84.29 [facility] Nucleated erythrocytes [Pres ence] in Blood by Automated countOrdered By: Valdez Manrique on 03-16-2024 Nucleated RBC Auto Ql (Bld) Nucleated erythrocytes [Presence] in Blood by Automated count 0-0.5 [facility] Platelet mean volume Auto (B ld) [Entitic vol]Ordered By: Valdez Manrique on 03-16-2024 Platelet mean volume (Bld) [Entitic vol] Platelet mean volume [Entitic volume] in Blood by Automated count 6.3-10.7 [facility] Platelets Auto (Bld) [#/Vol] Ordered By: Valdez Manrique on 03-16-2024 Platelets (Bld) [#/Vol] Platelets [#/vol ume] in Blood by Automated count 150-450 [facility] Potassium [Moles/volume] in Serum or PlasmaOrdered By: Valdez Manrique on 03-16-2024 Potassium [Moles/Vol] Potassium [Moles/volume] in Serum or Plasma 3.5-5.1 [facility] Protein Test strip (U) [Mass /Vol]Ordered By: Valdez Manrique on 03-16-2024 Protein (U) [Mass/Vol] Protein [Mass/vol ume] in Urine by Test strip High Negative [facility] Protein [Mass/volume] in Ser um or PlasmaOrdered By: Valdez Manrique on 03-16-2024 Protein [Mass/Vol] Protein [Mass/volume ] in Serum or Plasma 6.4-8.9 [facility] RBC Auto (Bld) [#/Vol]Ordere d By: Valdez Manrique on 03-16-2024 RBC (Bld) [#/Vol] Erythrocytes [#/volume] in Blood by Automated count 3.60-5.00 [facility] Respiratory specimen influen za A virus, influenza B virus, respiratory syncytical virOrdered By: Valdez Manrique on 03-16-2024 SARS-CoV-2 (COVID-19) RNA LINK+probe Ql (Unsp spec) Respiratory specimen influenza A virus, influenza B virus, respiratory syncytical vir [facility] SARS-CoV-2 (COVID-19) RNA LINK+probe Ql (Unsp spec) Respiratory specimen influenza A virus, influenza B virus, respiratory syncytical vir [facility] Serum or plasma albumin/glob ulin mass ratioOrdered By: Valdez Manrique on 03-16-2024 Albumin/Globulin [Mass ratio] Serum or plasma albumin/globulin mass ratio [facility] Serum or plasma anion gap de terminationOrdered By: Valdez Manrique on 03-16-2024 Anion gap [Moles/Vol] Serum or plasma an ion gap determination 6.0-15.0 [facility] Sodium [Moles/volume] in Ser um or PlasmaOrdered By: Valdez Manrique on 03-16-2024 Sodium [Moles/Vol] Sodium [Moles/volume ] in Serum or Plasma 136-145 [facility] Specific gravity Test strip (U) [Rel density]Ordered By: Valdez Manrique on 03-16-2024 Specific gravity (U) [Rel density] Specific gravity of Urine by Test strip 1.001-1.030 [facility] Urea nitrogen [Mass/volume] in Serum or PlasmaOrdered By: Valdez Manrique on 03-16-2024 Urea nitrogen [Mass/Vol] Urea nitrogen [Mass/volume] in Serum or Plasma 7-25 [facility] Urobilinogen Test strip (U) [Mass/Vol]Ordered By: Valdez Manrique on 03-16-2024 Urobilinogen (U) [Mass/Vol] Urobilinogen [Mass/volume] in Urine by Test strip Normal [facility] WBC Auto (Bld) [#/Vol]Ordere d By: Valdez Manrique on 03-16-2024 WBC (Bld) [#/Vol] Leukocytes [#/volume ] in Blood by Automated count High 3.8-11.6 [facility] pH Test strip (U)Ordered By: Valdez Manrique on 03-16-2024 pH (U) pH of Urine by Test strip 5.0-9.0 [facility] Appearance of UrineOrdered B y: Jimmy Donis on 03-04-2024 Appearance (U) Urine appearance [facility] Bacteria [Presence] in Urine by AutomatedOrdered By: Jimmy Donis on 03-04-2024 Bacteria Auto Ql (U) Bacteria [Presence] in Urine by Automated None Seen [facility] Basic Metabolic Panelon 02-18 Anion gap [Moles/Vol] 19.7 mmol/L High 6.0-15.0 [facility] Comment on above: Performed By: #### B SUZI, CBC ####[address] Calcium [Mass/Vol] 8.9 mg/dL Normal 8.6-10.3 [facility] Comment on above: Performed By: #### B SUZI, CBC ####[address] Chloride [Moles/Vol] 107 mmol/L Normal 98-107 [facility] Comment on above: Performed By: #### B SUZI, CBC ####[address] CO2 [Moles/Vol] 16.0 mmol/L Low 21.0-31.0 [facility] Comment on above: Performed By: #### B MP, CBC ####[place] [id number] [facility] Creatinine [Mass/Vol] 0.95 mg/dL Normal 0.60-1.20 [facility] Comment on above: Performed By: #### B MP, CBC ####[place] [id number] [facility] Creatinine Clr Calc Pharmacy 80.64 Normal [facility] Comment on above: Result Comment: PERF ORMED BY: [facility] [address] [place] [id number] PATHOLOGIST [employer] KIRBY BARRIENTOS M.D. Performed By: #### B MP, CBC ####[place] [id number] [place] GFR/1.73 sq M.predicted MDRD (S/P/Bld) [Vol rate/Area] mL/min/{1.73_m2} Normal [facility] Comment on above: Performed By: #### B MP, CBC ####[place] [id number] [facility] Glucose [Mass/Vol] 129 mg/dL High 70-100 [facility] Comment on above: Result Comment: [facility] Glucose Reference Range is dependent on time and content of last meal. Glucose of more than 200 mg/dL in a nonstressed, ambulatory subject supports the diagnosis of Diabetes Mellitus. ADA recommended reference range Performed By: #### B MP, CBC ####[address] Potassium [Moles/Vol] 3.7 mmol/L Normal 3.5-5.1 [facility] Comment on above: Performed By: #### B MP, CBC ####[address] Sodium [Moles/Vol] 139 mmol/L Normal 136-145 [facility] Comment on above: Performed By: #### B MP, CBC ####[place] [id number] [facility] Urea nitrogen [Mass/Vol] 9 mg/dL Normal 7-25 [facility] Comment on above: Performed By: #### B MP, CBC ####[place] [id number] [place] Basophils Auto (Bld) [#/Vol] Ordered By: Jimmy Donis on 03-04-2024 Basophils (Bld) [#/Vol] Automated basoph il count 0.0-0.2 [facility] Basophils/100 WBC Auto (Bld) Ordered By: Jimmy Donis on 03-04-2024 Basophils/100 WBC (Bld) Automated basophil % . [facility] Bilirubin Test strip Ql (U)O rdered By: Jimmy Donis on 03-04-2024 Bilirubin Ql (U) Bilirubin.total [Presence] in Urine by Test strip Negative [facility] CT head/brain wo conon 03-04 CT head/brain wo con [facility] Main [place] [id number] CT Scan Report Signed Patient: Quentin Brid MR#: [id number] : 2000 Acct:[id number] Age/Sex: 23 / F ADM Date: 03/04/24 Loc: ER Room: Type: [facility] ER Attending Dr: Copies to: Jimmy Donis [...] Tomas Graham M.D.03/04/2024 10:41 AM Dictation Location: [place] [address] Transcribed By: [facility] 03/04/24 1041 Dictated By: Tomas Graham MD 03/04/24 1039 Signed By: 03/04/24 1041 Normal [facility] Calcium [Mass/volume] in Ser um or PlasmaOrdered By: Jimmy Donis on 03-04-2024 Calcium [Mass/Vol] Calcium [Mass/volume ] in Serum or Plasma 8.6-10.3 [facility] Carbon dioxide, total [Moles /volume] in Serum or PlasmaOrdered By: Jimmy Donis on 03-04-2024 CO2 [Moles/Vol] Carbon dioxide, tota l [Moles/volume] in Serum or Plasma Low 21.0-31.0 [facility] Chloride [Moles/volume] in S benedicto or PlasmaOrdered By: Jimmy Donis on 03-04-2024 Chloride [Moles/Vol] Chloride [Moles/volume] in Serum or Plasma 98-107 [facility] Color Auto (U)Ordered By: Yan Donis on 03-04-2024 Color (U) Color of Urine by Auto Yellow [facility] Complete Blood Count Auto Di ffon 03-04-2024 Basophils (Bld) [#/Vol] 0.1 10*3/uL Normal 0.0-0.2 [facility] Comment on above: Result Comment: PERF ORMED BY: [facility] [address] [place] [address] PATHOLOGIST [employer] KIRBY BARRIENTOS M.D. Performed By: #### B MP, CBC ####[address] Basophils/100 WBC (Bld) 0.7 % Normal . [facility] Comment on above: Performed By: #### B MP, CBC ####[address] Eosinophils (Bld) [#/Vol] 0.1 10*3/uL Normal 0.0-0.45 [facility] Comment on above: Performed By: #### B MP, CBC ####[address] Eosinophils/100 WBC (Bld) 1.1 % Normal . [facility] Comment on above: Performed By: #### B MP, CBC ####[address] Erythrocyte distribution width (RBC) [Ratio] 13.5 % Normal 11.9-15.3 [facility] Comment on above: Performed By: #### B MP, CBC ####[address] Hematocrit (Bld) [Volume fraction] 41.0 % Normal 34.0-46.4 [facility] Comment on above: Performed By: #### B MP, CBC ####[address] Hemoglobin (Bld) [Mass/Vol] 13.7 g/dL Normal 11.8-15.4 [facility] Comment on above: Performed By: #### B MP, CBC ####[address] Lymphocytes (Bld) [#/Vol] 2.3 10*3/uL Normal 1.00-4.8 [facility] Comment on above: Performed By: #### B MP, CBC ####[address] Lymphocytes/100 WBC (Bld) 28.5 % Normal . [facility] Comment on above: Performed By: #### B MP, CBC ####[address] MCH (RBC) [Entitic mass] 31.6 pg Normal 24.7-34.3 [facility] Comment on above: Performed By: #### B MP, CBC ####[address] MCV (RBC) [Entitic vol] 94.5 fL Normal 80-100 [facility] Comment on above: Performed By: #### B MP, CBC ####[address] Mean Corpuscular HGB Conc 33.4 g/dL Normal 32.0-35.0 [facility] Comment on above: Performed By: #### B MP, CBC ####[address] Monocytes (Bld) [#/Vol] 0.7 10*3/uL Normal 0.0-0.8 [facility] Comment on above: Performed By: #### B MP, CBC ####[address] Monocytes/100 WBC (Bld) 15.77 % Normal 0.00-20.00 [facility] Comment on above: Performed By: #### B MP, CBC ####[address] Monocytes/100 WBC (Bld) 8.2 % Normal . [facility] Comment on above: Performed By: #### B MP, CBC ####[address] Neutrophils (Bld) [#/Vol] 5.0 10*3/uL Normal 1.8-7.7 [facility] Comment on above: Performed By: #### B MP, CBC ####[address] Neutrophils/100 WBC (Bld) 61.5 % Normal . [facility] Comment on above: Performed By: #### B MP, CBC ####[address] NRBC% 0.1 /100{WBC} Normal 0-0.5 [facility] Comment on above: Performed By: #### B MP, CBC ####[address] Platelet mean volume (Bld) [Entitic vol] 8.0 fL Normal 6.3-10.7 [facility] Comment on above: Performed By: #### B MP, CBC ####[address] Platelets (Bld) [#/Vol] 300 10*3/uL Normal 150-450 [facility] Comment on above: Performed By: #### B MP, CBC ####[address] RBC (Bld) [#/Vol] 4.34 10*6/uL Normal 3.60-5.00 [facility] Comment on above: Performed By: #### B MP, CBC ####[address] WBC (Bld) [#/Vol] 8.1 10*3/uL Normal 3.8-11.6 [facility] Comment on above: Performed By: #### B MP, CBC ####[facility] [id number] Creatinine [Mass/volume] in Serum or PlasmaOrdered By: Jimmy Donis on 03-04-2024 Creatinine [Mass/Vol] Creatinine [Mass/volume] in Serum or Plasma 0.60-1.20 [facility] Dipstick and Microscopicon 0 03-04-2024 Appearance (U) Clear Normal Clear [facility] Comment on above: Order Comment: Name Collection Type:: Clean-Voided Midstream Performed By: #### U HCG, ADDONUAPLUS #### [address] Bacteria,Urine Rare Normal None Seen [facility] Comment on above: Order Comment: Name Collection Type:: Clean-Voided Midstream Performed By: #### U HCG, ADDONUAPLUS #### [place] [address] [place] Bilirubin,Urine Negative Normal Negative [facility] Comment on above: Order Comment: Name Collection Type:: Clean-Voided Midstream Performed By: #### U HCG, ADDONUAPLUS #### [address] Color (U) Light-Yellow Normal Yellow [facility] Comment on above: Order Comment: Name Collection Type:: Clean-Voided Midstream Performed By: #### U HCG, ADDONUAPLUS #### [facility] [address] [place] [address] Glucose Ql (U) Normal Normal Normal [facility] Comment on above: Order Comment: Name Collection Type:: Clean-Voided Midstream Performed By: #### U HCG, ADDONUAPLUS #### [place] [address] [place] Hyaline Casts,Urine None Normal 0-8 [facility] Comment on above: Order Comment: Name Collection Type:: Clean-Voided Midstream Performed By: #### U HCG, ADDONUAPLUS #### [address] [place] [address] [place] Ketones Ql (U) Negative Normal Negative [facility] Comment on above: Order Comment: Name Collection Type:: Clean-Voided Midstream Performed By: #### U HCG, ADDONUAPLUS #### [address] Leukocyte esterase Test strip Ql (U) 2+ High Negative [facility] Comment on above: Order Comment: Name Collection Type:: Clean-Voided Midstream Performed By: #### U HCG, ADDONUAPLUS #### [place] [address] [place] Mucus,Urine Rare Normal [facility] Comment on above: Order Comment: Name Collection Type:: Clean-Voided Midstream Performed By: #### U HCG, ADDONUAPLUS #### [place] [address] [place] Nitrite,Urine Negative Normal Negative [facility] Comment on above: Order Comment: Name Collection Type:: Clean-Voided Midstream Performed By: #### U HCG, ADDONUAPLUS #### [place] [address] [place] Occult Blood,Urine Negative Normal Negative [facility] Comment on above: Order Comment: Name Collection Type:: Clean-Voided Midstream Performed By: #### U HCG, ADDONUAPLUS #### [place] [address] [place] pH (U) 6.5 [pH] Normal 5.0-9.0 [facility] Comment on above: Order Comment: Name Collection Type:: Clean-Voided Midstream Performed By: #### U HCG, ADDONUAPLUS #### [place] [address] [place] Protein,Urine Negative Normal Negative [facility] Comment on above: Order Comment: Name Collection Type:: Clean-Voided Midstream Performed By: #### U HCG, ADDONUAPLUS #### [place] [address] [place] RBC,Urine 1 [HPF] Normal 0-4 [facility] Comment on above: Order Comment: Name Collection Type:: Clean-Voided Midstream Performed By: #### U HCG, ADDONUAPLUS #### [address] Specificy Ma[place],Urine 1.010 Normal 1.001-1.030 [facility] Comment on above: Order Comment: Name Collection Type:: Clean-Voided Midstream Performed By: #### U HCG, ADDONUAPLUS #### [address] Squamous Epithelial Cell,Urine 5 [HPF] High 0-2 [facility] Comment on above: Order Comment: Name Collection Type:: Clean-Voided Midstream Performed By: #### U HCG, ADDONUAPLUS #### [address] Urobilinogen,Urine Normal Normal Normal [facility] Comment on above: Order Comment: Name Collection Type:: Clean-Voided Midstream Performed By: #### U HCG, ADDONUAPLUS #### [address] WBC,Urine 3 [HPF] Normal 0-4 [facility] Comment on above: Order Comment: Name Collection Type:: Clean-Voided Midstream Performed By: #### U HCG, ADDONUAPLUS #### [address] ECG 12 lead ECGon 03-04-2024 ECG 12 lead ECG [facility] [place] [address] [place] [address] Electrocardiograph Report Signed Patient: Quentin Bird MR#: [id number] : 2000 Acct:[id number] Age/Sex: 23 / F ADM Date: 03/04/24 Loc: ER Room: Type: [facility] ER Attending Dr: Ordering Provider: Jimmy [...] QRS axis Confirmed by Jimmy Donis DO ([id number]) on 03/04/2024 3:19:49 PM Referred By: Electronically Signed By: Jimmy Donis DO Transcribed By: MUS Signed By Jimmy Donis DO 5 1519 Normal [facility] Eosinophils Auto (Bld) [#/Vo l]Ordered By: Jimmy Donis on 03-04-2024 Eosinophils (Bld) [#/Vol] Automated eosinophil count 0.0-0.45 [facility] Eosinophils/100 WBC Auto (Bl d)Ordered By: Jimmy Donis on 03-04-2024 Eosinophils/100 WBC (Bld) Automated eosinophil % . [facility] Epithelial cells.squamous [# /area] in Urine sediment by Automated countOrdered By: Jimmy Donis on 03-04-2024 Epithelial cells.squamous Auto (Urine sed) [#/Area] Epithelial cells.squamous [#/area] in Urine sediment by Automated count High 0-2 [facility] Erythrocyte distribution wid th Auto (RBC) [Ratio]Ordered By: Jimmy Donis on 03-04-2024 Erythrocyte distribution width (RBC) [Ratio] Erythrocyte distribution width [Ratio] by Automated count 11.9-15.3 [facility] Erythrocytes [#/area] in Uri ne sediment by Automated countOrdered By: Jimmy Donis on 03-04-2024 RBC Auto (Urine sed) [#/Area] Erythrocytes [#/area] in Urine sediment by Automated count 0-4 [facility] Glucose [Mass/volume] in Ser um or PlasmaOrdered By: Jimmy Donis on 03-04-2024 Glucose [Mass/Vol] Glucose [Mass/volume ] in Serum or Plasma High 70-100 [facility] Comment on above: ADA recommended refe rence rangeRandom Glucose Reference Range is dependent on time and content of last meal. Glucose of more than 200 mg/dL in a nonstressed, ambulatory subject supports the diagnosis of Diabetes Mellitus. Glucose [Mass/volume] in Uri ne by Test stripOrdered By: Jimmy Donis on 03-04-2024 Glucose Test strip (U) [Mass/Vol] Glucose [Mass/volume] in Urine by Test strip Normal [facility] HCG ( test) IA.rapi d Ql (U)Ordered By: Jimmy Donis on 03-04-2024 HCG ( test) Ql (U) Urine human chorionic gonadotropin (hCG) detection by immunoassay [facility] HCG,Urineon 03-04-2024 Beta HCG ( test) Ql (U) Negative Normal [facility] Comment on above: Order Comment: Name Collection Type:: Clean-Voided Midstream Result Comment: PERF ORMED BY: [facility] [address] [place] [address] PATHOLOGIST [employer] KIRBY BARRIENTOS M.D. Performed By: #### U HCG, ADDONUAPLUS ####[facility] [address] [place] [address] [facility] Hematocrit Auto (Bld) [Volum e fraction]Ordered By: Jimmy Donis on 03-04-2024 Hematocrit (Bld) [Volume fraction] Hematocrit [Volume Fraction] of Blood by Automated count 34.0-46.4 [facility] Hemoglobin Test strip Ql (U) Ordered By: Jimmy Donis on 03-04-2024 Hemoglobin Ql (U) Hemoglobin [Presence ] in Urine by Test strip Negative [facility] Hemoglobin [Mass/volume] in BloodOrdered By: Jimmy Donis on 03-04-2024 Hemoglobin (Bld) [Mass/Vol] Hemoglobin [Mass/volume] in Blood 11.8-15.4 [facility] Hyaline casts [#/area] in Ur ine sediment by Automated countOrdered By: Jimmy Donis on 03-04-2024 Hyaline casts Auto (Urine sed) [#/Area] Hyaline casts [#/area] in Urine sediment by Automated count 0-8 [facility] Ketones Test strip Ql (U)Ord ered By: Jimmy Donis on 03-04-2024 Ketones Ql (U) Ketones [Presence] i n Urine by Test strip Negative [facility] Leukocyte esterase [Presence ] in Urine by Test stripOrdered By: Jimmy Donis on 03-04-2024 Leukocyte esterase Test strip Ql (U) Leukocyte esterase [Presence] in Urine by Test strip High Negative [facility] Leukocytes [#/area] in Urine sediment by Automated countOrdered By: Jimmy Donis on 03-04-2024 WBC Auto (Urine sed) [#/Area] Leukocytes [#/area] in Urine sediment by Automated count 0-4 [facility] Leukocytes [#/volume] correc chandan for nucleated erythrocytes in Blood by Automated counOrdered By: Jimmy Donis on 03-04-2024 WBC corrected for nucl RBC Auto (Bld) [#/Vol] Leukocytes [#/volume] corrected for nucleated erythrocytes in Blood by Automated coun 3.8-11.6 [facility] Lymphocytes Auto (Bld) [#/Vo l]Ordered By: Jimmy Donis on 03-04-2024 Lymphocytes (Bld) [#/Vol] Lymphocytes [#/volume] in Blood by Automated count 1.00-4.8 [facility] Lymphocytes/100 WBC Auto (Bl d)Ordered By: Jimmy Donis on 03-04-2024 Lymphocytes/100 WBC (Bld) Lymphocytes/100 leukocytes in Blood by Automated count . [facility] MCH Auto (RBC) [Entitic mass ]Ordered By: Jimmy Donis on 03-04-2024 MCH (RBC) [Entitic mass] MCH [Entitic mass] by Automated count 24.7-34.3 [facility] MCHC Auto (RBC) [Mass/Vol]Or dered By: Jimmy Donis on 03-04-2024 MCHC (RBC) [Mass/Vol] MCHC [Mass/volume] by Automated count 32.0-35.0 [facility] MCV Auto (RBC) [Entitic vol] Ordered By: Jimmy Donis on 03-04-2024 MCV (RBC) [Entitic vol] MCV [Entitic vol ume] by Automated count 80-100 [facility] Monocyte distribution width [Entitic volume] in Blood by AutomatedOrdered By: Jimmy Donis on 03-04-2024 Monocyte distribution width Auto (Bld) [Entitic vol] Monocyte distribution width [Entitic volume] in Blood by Automated 0.00-20.00 [facility] Monocytes Auto (Bld) [#/Vol] Ordered By: Jimmy Donis on 03-04-2024 Monocytes (Bld) [#/Vol] Automated blood monocyte count 0.0-0.8 [facility] Monocytes/100 WBC Auto (Bld) Ordered By: Jimmy Donis on 03-04-2024 Monocytes/100 WBC (Bld) Automated monocyte % . [facility] Mucus [Presence] in Urine by AutomatedOrdered By: Jimmy Donis on 03-04-2024 Mucus Auto Ql (U) Mucus [Presence] in Urine by Automated [facility] Neutrophils Auto (Bld) [#/Vo l]Ordered By: Jimmy Donis on 03-04-2024 Neutrophils (Bld) [#/Vol] Neutrophils [#/volume] in Blood by Automated count 1.8-7.7 [facility] Neutrophils/100 WBC Auto (Bl d)Ordered By: Jimmy Donis on 03-04-2024 Neutrophils/100 WBC (Bld) Automated neutrophil % . [facility] Nitrite Test strip Ql (U)Ord ered By: Jimmy Donis on 03-04-2024 Nitrite Ql (U) Nitrite [Presence] i n Urine by Test strip Negative [facility] No Panel InformationOrdered By: Jimmy Donis on 03-04-2024 Estimated GFR (CKD-EPI) > 60.0 mL/Min [facility] Creatinine Clearance (Chem 80.64 [facility] Nucleated erythrocytes [Pres ence] in Blood by Automated countOrdered By: Jimmy Donis on 03-04-2024 Nucleated RBC Auto Ql (Bld) Nucleated erythrocytes [Presence] in Blood by Automated count 0-0.5 [facility] Platelet mean volume Auto (B ld) [Entitic vol]Ordered By: Jimmy Donis on 03-04-2024 Platelet mean volume (Bld) [Entitic vol] Platelet mean volume [Entitic volume] in Blood by Automated count 6.3-10.7 [facility] Platelets Auto (Bld) [#/Vol] Ordered By: Jimmy Donis on 03-04-2024 Platelets (Bld) [#/Vol] Platelets [#/vol ume] in Blood by Automated count 150-450 [facility] Potassium [Moles/volume] in Serum or PlasmaOrdered By: Jimmy Donis on 03-04-2024 Potassium [Moles/Vol] Potassium [Moles/volume] in Serum or Plasma 3.5-5.1 [facility] Protein Test strip (U) [Mass /Vol]Ordered By: Jimmy Donis on 03-04-2024 Protein (U) [Mass/Vol] Protein [Mass/vol ume] in Urine by Test strip Negative [facility] RBC Auto (Bld) [#/Vol]Ordere d By: Jimmy Donis on 03-04-2024 RBC (Bld) [#/Vol] Erythrocytes [#/volume] in Blood by Automated count 3.60-5.00 [facility] Serum or plasma anion gap de terminationOrdered By: Jimmy Donis on 03-04-2024 Anion gap [Moles/Vol] Serum or plasma an ion gap determination High 6.0-15.0 [facility] Sodium [Moles/volume] in Ser um or PlasmaOrdered By: Jimmy Donis on 03-04-2024 Sodium [Moles/Vol] Sodium [Moles/volume ] in Serum or Plasma 136-145 [facility] Specific gravity Test strip (U) [Rel density]Ordered By: Jimmy Donis on 03-04-2024 Specific gravity (U) [Rel density] Specific gravity of Urine by Test strip 1.001-1.030 [facility] Urea nitrogen [Mass/volume] in Serum or PlasmaOrdered By: Jimmy Donis on 03-04-2024 Urea nitrogen [Mass/Vol] Urea nitrogen [Mass/volume] in Serum or Plasma 7-25 [facility] Urobilinogen Test strip (U) [Mass/Vol]Ordered By: Jimmy Donis on 03-04-2024 Urobilinogen (U) [Mass/Vol] Urobilinogen [Mass/volume] in Urine by Test strip Normal [facility] WBC Auto (Bld) [#/Vol]Ordere d By: Jimmy Donis on 03-04-2024 WBC (Bld) [#/Vol] Leukocytes [#/volume ] in Blood by Automated count 3.8-11.6 [facility] pH Test strip (U)Ordered By: Jimmy Donis on 03-04-2024 pH (U) pH of Urine by Test strip 5.0-9.0 [facility] CNPAmanda 02-18-2024 CNPN Telephone (NE50MN) MARGEQUENTIN Rodo ([id number]) 4 F Date Time Provider Department 02/18/24 DAISY DE LEON NE50MN During your visit today, we recorded the following information about you: Aislinn Lee 02/18/2024 11:50 AM Signed Prior Authorization Needed: Received by: Fax Requested by (pharmacy name): [facility] Phone number: [phone] Name of medication: Lacosamide Brand or Generic: generic Strength and dosage: 50 mg Wk 1: 150/200 Wk 2: 150/150 Wk 3: 100/150 Wk 4: 100/100 Wk 5: 50/100 WK 6: 50/50 Wk 7: 50 at bedtime Wk 8: STOP LCM Quantity Override: No Insurance company name and phone #: [employer] [phone] HUNTER [id number] Patient ID: PCN #: BIN#: Group #: Patient of Asuncion Burris RN 02/18/2024 12:37 PM Signed PA done via CMM. (Hunter: [id number]) PA Rx #: [id number] Status: sent to plan today BRAYDEN Hunter Merlene 02/20/2024 9:28 AM Signed Received approval for Lacosamide 50 mg from Jane Lew. Approval Dates: 02/18/24 - 02/17/25. REF #: [id number] Approval uploaded to [facility]. Asuncion Garcia RN 02/20/2024 9:34 AM Signed Pharmacy called and made aware. Asuncion Garcia RN Allergies As of Date: 02/18/2024 (No Known Allergies) Date Reviewed: 01/09/2024 Reviewed by: Cathy Dixon MA - Fully Assessed Reason for Visit: Medication Authorization [0949] Cmt: Lacosamide 50 mg Prescriptions as of [...] Encounter Status:Closed by ASUNCION GARCIA on 02/20/24 [facility] Taryn 02-13-2024 [facility] Telephone (NE50MN) MARGEQUENTIN Rodo ([id number]) 02 Date Time Provider Department 02/13/24 DAISY DE LEON NE50MN During your visit today, we recorded the following information about you: Deanna Garcia 02/13/2024 2:26 PM Signed Medication Concern Person Calling Umesh Moon Name of medication Vimpat Concern with medication Pharmacy needs clarification on SIG. Patient of Joon Marcano RN 02/13/2024 3:56 PM Signed I spoke with the pharmacist at [facility], titration schedule reviewed. Joon Melton RN Allergies [...] Encounter Status:Closed by [facility] POST [facility] QUENTIN BIRD ([id number]) 4 F Date Time Provider Department 02/10/24 DAISY DE LEON NE50MN During your visit today, we recorded the following information about you: Nahomy Frye 02/10/2024 9:47 AM Signed Medication Concern Person Calling: Fax from [facility] Phone #: [phone] / Name of medication: Lacosamide/Vimpat - 50MG Concern with medication: Clarification request for dosage instructions Directions are missing on the original prescription dated 02/07/[address] De Leon Forwarded to nurse. Asuncion Garcia RN 02/10/2024 10:26 AM Signed Prescription for LCM 50mg tablet. [facility]'s response: Routed for new prescription. BRAYDEN Hunter Kelly, APRN.GUN SYNCHRONIZER 02/10/2024 12:46 PM Signed The following approved medication requests have been transmitted electronically. Requested Prescriptions Signed Prescriptions Disp Refills lacosamide (VIMPAT) 50 mg tab 168 tablet 0 Sig: Wk 1: 150/200 Wk 2: 150/150 Wk 3: 100/150 Wk 4: 100/100 Wk 5: 50/100 WK 6: 50/50 Wk 7: 50 at bedtime Wk 8: STOP LCM Authorizing Provider: ROSELYN MCCULLOUGH APRN.GUN SYNCHRONIZER Allergies As of Date: 02/10/2024 (No Known [...] (Discontinued) Please follow wean schedule provided via [employer] Encounter Status:Closed by ROSEYLN MCCULLOUGH on 02/10/24 [facility] Taryn 02-07-2024 DAS[facility] Telephone (NE50MN) QUENTIN BIRD ([id number]) 4 F Date Time Provider Department 02/07/24 DAISY DE LEON NE50MN During your visit today, we recorded the following information about you: Ermelinda Dangelo 02/07/2024 10:34 AM Signed Form received: From (agency / facility / parent): [facility] manager personal (if given): Phone #: [phone] Fax # : [phone] Email: Information requested: Physicians statement Patient of [...] via MyChart Authorizing Provider: HOSEA KU PA-C Rhodes, Alena, PA-C 02/07/2024 4:35 PM Signed The following approved medication requests have been transmitted electronically. 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 - lacosamide (VIMPAT) 50 mg tab Please follow wean schedule provided via [employer] - venlafaxine ER (EFFEXOR XR) 37.5 mg [...] Sig: Please follow wean schedule provided via [employer] LACOSAMIDE 50 MG TABLET 168 * 0 02/07/2024 02/07/2024 Sig: Please follow wean schedule provided via MyChart LACOSAMIDE 50 MG TABLET 168 * 0 02/07/2024 04/07/2024 Cmt: Wk 1: LCM 150/200 Wk 2: LCM 150 BID Wk 3: LCM 100/150 Wk 4: LCM 100 BID Wk 5: LCM 50/100 Wk 6: LCM 50 BID Wk 7: LCM 50 QHS Wk 8: STOP LCM Sig: Please follow wean schedule provided via [employer] Medications Discontinued During This Encounter Prescriptions - [...] (Discontinued) Please follow wean schedule provided via [employer] - lacosamide (VIMPAT) 50 mg tab (Discontinued) Please follow wean schedule provided via [employer] Encounter Status:Closed by HOSEA KU on 02/07/24 [facility] CNOVon 01-09-2024 CNOV Office Visit (NE50MN ) QUENTIN BIRD ([id number]) 4 F Date Time Provider Department 01/09/24 2:40 PM DAISY DE LEON NE50MN During your visit today, we recorded the following information about you: Pulse Respiration Blood pressure Weight 62/minute 18/minute 114/68 70.3 kg Height Last Period 1.524 m 12/27/23 Daisy De Leon DO 01/09/2024 3:45 PM Signed [facility] Patient Name: Quentin Bird Date of : 2000 ESTABLISHED EPILEPSY CLINIC NOTE 01/09/2024 2:40 PM Reason for Visit: Established Patient and Follow Up Clinical Summary: Ms. Bird is a 23 year old female seen in [facility]. 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 Currently holding [...] been having (more content not included)... Normal [facility] Taryn 01-09-2024 DASHA Telephone (NE50MN) QUENTIN BIRD ([id number]) 4 F Date Time Provider Department 01/09/24 DAISY DE LEON NE50MN During your visit today, we recorded the following information about you: Asuncion Garcia RN 01/09/2024 4:24 PM Signed Daisy De Leon, Asuncion Dejesus RN Can we please send an order for trough lamotrigine level, CBC, CMP to [facility]? To be drawn after lamotrigine titration complete. Routed for lab orders. BRAYDEN Hunter Ailis, PA-C 01/09/2024 4:29 PM Signed Lab orders placed. TOO Chung Nina, RN 01/09/2024 4:33 PM Signed Lab order form sent to Mario Rojas to review and sign via [email or web address]. BRAYDEN Hunter Nina, RN 01/10/2024 11:29 AM Signed Lab order form signed by Mario Rojas via [email or web address]. [email or web address] message sent to pt, in this encounter, to confirm laboratory. BRAYDEN Hunter Nina, RN 01/10/2024 2:27 PM Signed Pt will be going to [facility] (fax #: [phone]). Lab order form sent to [facility] [email or web address] (fax #: [phone]) via [employer]. Confirmation received. 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] Order(s):COMPLETE BLOOD COUNT [SQCBC] Order #: [id number] FUTURE COMPREHENSIVE METABOLIC PANEL [SQCMP] Order #: [id number] FUTURE LAMOTRIGINE [SQLMTR] Order #: [id number] FUTURE Prescriptions as of 01/10/2024 - venlafaxine [...] Status:Closed by ASUNCION GARCIA on 01/10/24 Normal [facility] Alanine aminotransferase [En zymatic activity/volume] in Serum or PlasmaOrdered By: Valdez Manrique on 12-22-2023 ALT [Catalytic activity/Vol] 10 U/L Normal [facility] Comment on above: Performed By: #### C MP, CBC, PRL ####[facility] [address] [place] [address] [facility] ALT [Catalytic activity/Vol] Alanine aminotransferase [Enzymatic activity/volume] in Serum or Plasma [facility] Albumin [Mass/volume] in Ser um or Plasma by Bromocresol green (BCG) dye binding methoOrdered By: Valdez Manrique on 12-22-2023 Albumin BCG dye [Mass/Vol] 4.8 g/dL 3.5-5.7 [facility] Albumin BCG dye [Mass/Vol] Albumin [Mass/volume] in Serum or Plasma by Bromocresol green (BCG) dye binding metho 3.5-5.7 [facility] Alkaline phosphatase [Enzyma tic activity/volume] in Serum or PlasmaOrdered By: Valdez Manrique on 12-22-2023 ALP [Catalytic activity/Vol] 74 U/L Normal 34-104 [facility] Comment on above: Performed By: #### C MP, CBC, PRL ####[place] [id number] [address] ALP [Catalytic activity/Vol] Alkaline phosphatase [Enzymatic activity/volume] in Serum or Plasma 34-104 [facility] Aspartate aminotransferase [ Enzymatic activity/volume] in Serum or PlasmaOrdered By: Valdez Manrique on 12-22-2023 AST [Catalytic activity/Vol] 12 U/L Low 13-39 [facility] Comment on above: Performed By: #### C MP, CBC, PRL ####[address] AST [Catalytic activity/Vol] Aspartate aminotransferase [Enzymatic activity/volume] in Serum or Plasma Low 13-39 [facility] Automated basophil %Ordered By: Valdez Manrique on 12-22-2023 Basophils/100 WBC (Bld) 0.5 % Normal . [facility] Comment on above: Performed By: #### C MP, CBC, PRL ####[facility] [address] [place] [id number] [facility] Automated basophil countOrde red By: Valdez Manrique on 12-22-2023 Basophils (Bld) [#/Vol] 0.0 10*3/uL Normal 0.0-0.2 [facility] Comment on above: Result Comment: PERF ORMED BY: [facility] [address] [place] [address] PATHOLOGIST [employer]ELOPER OLU MEJIA M.D. Performed By: #### C MP, CBC, PRL ####[address] Automated blood monocyte cou ntOrdered By: Valdez Manrique on 12-22-2023 Monocytes (Bld) [#/Vol] 0.9 10*3/uL High 0.0-0.8 [facility] Comment on above: Performed By: #### C MP, CBC, PRL ####[address] Automated eosinophil %Ordere d By: Valdez Manrique on 12-22-2023 Eosinophils/100 WBC (Bld) 1.0 % Normal . [facility] Comment on above: Performed By: #### C MP, CBC, PRL ####[address] Automated eosinophil countOr dered By: Valdez Manrique on 12-22-2023 Eosinophils (Bld) [#/Vol] 0.1 10*3/uL Normal 0.0-0.45 [facility] Comment on above: Performed By: #### C MP, CBC, PRL ####[address] Automated monocyte %Ordered By: Valdez Manrique on 12-22-2023 Monocytes/100 WBC (Bld) 10.2 % Normal . [facility] Comment on above: Performed By: #### C MP, CBC, PRL ####[address] Automated neutrophil %Ordere d By: Valdez Manrique on 12-22-2023 Neutrophils/100 WBC (Bld) 55.5 % Normal . [facility] Comment on above: Performed By: #### C MP, CBC, PRL ####[address] Basophils Auto (Bld) [#/Vol] Ordered By: Valdez Manrique on 12-22-2023 Basophils (Bld) [#/Vol] Automated basoph il count 0.0-0.2 [facility] Basophils/100 WBC Auto (Bld) Ordered By: Valdez Manrique on 12-22-2023 Basophils/100 WBC (Bld) Automated basophil % . [facility] Bilirubin.total [Mass/volume ] in Serum or PlasmaOrdered By: Valdez Manrique on 12-22-2023 Bilirubin [Mass/Vol] 0.3 mg/dL Normal 0.3-1.0 [facility] Comment on above: Performed By: #### C MP, CBC, PRL ####[facility] [address] [place] [address] [facility] Bilirubin [Mass/Vol] Bilirubin.total [Mass/volume] in Serum or Plasma 0.3-1.0 [facility] Calcium [Mass/volume] in Ser um or PlasmaOrdered By: Valdez Manrique on 12-22-2023 Calcium [Mass/Vol] 8.8 mg/dL Normal 8.6-10.3 [facility] Comment on above: Performed By: #### C MP, CBC, PRL ####[place] [address] [place] [id number] [facility] Calcium [Mass/Vol] Calcium [Mass/volume ] in Serum or Plasma 8.6-10.3 [facility] Carbon dioxide, total [Moles /volume] in Serum or PlasmaOrdered By: Valdez Manrique on 12-22-2023 CO2 [Moles/Vol] 20.8 mmol/L Low 21.0-31.0 [facility] Comment on above: Performed By: #### C MP, CBC, PRL ####[place] [id number] [facility] CO2 [Moles/Vol] Carbon dioxide, tota l [Moles/volume] in Serum or Plasma Low 21.0-31.0 [facility] Chloride [Moles/volume] in S benedicto or PlasmaOrdered By: Valdez Manrique on 12-22-2023 Chloride [Moles/Vol] 104 mmol/L Normal 98-107 [facility] Comment on above: Performed By: #### C MP, CBC, PRL ####[facility] [address] [place] [address] [facility] Chloride [Moles/Vol] Chloride [Moles/volume] in Serum or Plasma 98-107 [facility] Complete Blood Count Auto Di ffon 12-22-2023 Mean Corpuscular HGB Conc 34.3 g/dL Normal 32.0-35.0 [facility] Comment on above: Performed By: #### C MP, CBC, PRL ####[place] [address] [place] [id number] [facility] Monocytes/100 WBC (Bld) 16.10 % Normal 0.00-20.00 [facility] Comment on above: Performed By: #### C MP, CBC, PRL ####[address] [address] [facility] NRBC% 0.1 /100{WBC} Normal 0-0.5 [facility] Comment on above: Performed By: #### C MP, CBC, PRL ####[address] [address] [facility] Comprehensive Metabolic Pane bridger 12-22-2023 Albumin [Mass/Vol] 4.8 g/dL Normal 3.5-5.7 [facility] Comment on above: Performed By: #### C MP, CBC, PRL ####[place] [id number] [facility] Creatinine Clr Calc Pharmacy 78.96 Normal [facility] Comment on above: Performed By: #### C MP, CBC, PRL ####[address] [address] [facility] GFR/1.73 sq M.predicted MDRD (S/P/Bld) [Vol rate/Area] mL/min/{1.73_m2} Normal [facility] Comment on above: Performed By: #### C MP, CBC, PRL ####[address] [address] [facility] Creatinine [Mass/volume] in Serum or PlasmaOrdered By: Valdez Manrique on 12-22-2023 Creatinine [Mass/Vol] 0.97 mg/dL Normal 0.60-1.20 [facility] Comment on above: Performed By: #### C MP, CBC, PRL ####[place] [id number] [facility] Creatinine [Mass/Vol] Creatinine [Mass/volume] in Serum or Plasma 0.60-1.20 [facility] ECG 12 lead ECGon 12-22-2023 ECG 12 lead ECG [facility] [address] [place] [id number] Electrocardiograph Report Signed Patient: Quentin Bird MR#: [id number] : 2000 Acct:[id number] Age/Sex: 23 / F ADM Date: 12/22/23 Loc: ER Room: Type: [facility] ER Attending Dr: Ordering Provider: Valdez [...] ST abnormality Confirmed by Abraham Hilton DO ([id number]) on 12/22/2023 7:52:16 PM Referred By: Electronically Signed By: Abraham Hilton DO Transcribed By: MUS Signed By Abraham Hilton DO 1949 Normal [facility] Eosinophils Auto (Bld) [#/Vo l]Ordered By: Valdez Manrique on 12-22-2023 Eosinophils (Bld) [#/Vol] Automated eosinophil count 0.0-0.45 [facility] Eosinophils/100 WBC Auto (Bl d)Ordered By: Valdez Manrique on 12-22-2023 Eosinophils/100 WBC (Bld) Automated eosinophil % . [facility] Erythrocyte distribution wid th Auto (RBC) [Ratio]Ordered By: Valdez Manrique on 12-22-2023 Erythrocyte distribution width (RBC) [Ratio] Erythrocyte distribution width [Ratio] by Automated count 11.-15. [facility] Erythrocyte distribution wid th [Ratio] by Automated countOrdered By: Valdez Manrique on 12-22-2023 Erythrocyte distribution width (RBC) [Ratio] 13.4 % Normal 11.9-15.3 [facility] Comment on above: Performed By: #### C MP, CBC, PRL ####[facility] [place] [id number] [facility] Erythrocytes [#/volume] in B lood by Automated countOrdered By: Valdez Manrique on 12-22-2023 RBC (Bld) [#/Vol] 4.36 10*6/uL Normal 3.60-5.00 [facility] Comment on above: Performed By: #### C MP, CBC, PRL ####[place] [address] [place] [id number] [facility] Globulin Calc (S) [Mass/Vol] Ordered By: Valdez Manrique on 12-22-2023 Globulin (S) [Mass/Vol] Serum globulin measurement by calculation (mass/volume) [facility] Glucose [Mass/volume] in Ser um or PlasmaOrdered By: Valdez Manrique on 12-22-2023 Glucose [Mass/Vol] 93 mg/dL Normal 70-100 [facility] Comment on above: ADA recommended refe rence rangeRandom Glucose Reference Range is dependent on time and content of last meal. Glucose of more than 200 mg/dL in a nonstressed, ambulatory subject supports the diagnosis of Diabetes Mellitus. Result Comment: [place] Glucose Reference Range is dependent on time and content of last meal. Glucose of more than 200 mg/dL in a nonstressed, ambulatory subject supports the diagnosis of Diabetes Mellitus. ADA recommended reference range Performed By: #### C MP, CBC, PRL ####[place] [address] [place] [id number] [facility] Glucose [Mass/Vol] Glucose [Mass/volume ] in Serum or Plasma 70-100 [facility] Comment on above: ADA recommended refe rence rangeRandom Glucose Reference Range is dependent on time and content of last meal. Glucose of more than 200 mg/dL in a nonstressed, ambulatory subject supports the diagnosis of Diabetes Mellitus. Hematocrit Auto (Bld) [Volum e fraction]Ordered By: Valdez Manrique on 12-22-2023 Hematocrit (Bld) [Volume fraction] Hematocrit [Volume Fraction] of Blood by Automated count 34.0-46.4 [facility] Hematocrit [Volume Fraction] of Blood by Automated countOrdered By: Valdez Manrique on 12-22-2023 Hematocrit (Bld) [Volume fraction] 40.5 % Normal 34.0-46.4 [facility] Comment on above: Performed By: #### C MP, CBC, PRL ####[facility] [address] Hemoglobin [Mass/volume] in BloodOrdered By: Valdez Manrique on 12-22-2023 Hemoglobin (Bld) [Mass/Vol] 13.9 g/dL Normal 11.8-15.4 [facility] Comment on above: Performed By: #### C MP, CBC, PRL ####[place] [address] [address] Hemoglobin (Bld) [Mass/Vol] Hemoglobin [Mass/volume] in Blood 11.8-15.4 [facility] Leukocytes [#/volume] correc chandan for nucleated erythrocytes in Blood by Automated counOrdered By: Valdez Manrique on 12-22-2023 WBC corrected for nucl RBC Auto (Bld) [#/Vol] 9.2 10*3/uL 3.8-11.6 [facility] WBC corrected for nucl RBC Auto (Bld) [#/Vol] Leukocytes [#/volume] corrected for nucleated erythrocytes in Blood by Automated coun 3.8-11.6 [facility] Leukocytes [#/volume] in Blo od by Automated countOrdered By: Valdez Manrique on 12-22-2023 WBC (Bld) [#/Vol] 9.2 10*3/uL Normal 3.8-11.6 [facility] Comment on above: Performed By: #### C MP, CBC, PRL ####[facility] [address] Lymphocytes Auto (Bld) [#/Vo l]Ordered By: Valdez Manrique on 12-22-2023 Lymphocytes (Bld) [#/Vol] Lymphocytes [#/volume] in Blood by Automated count 1.00-4.8 [facility] Lymphocytes [#/volume] in Bl ood by Automated countOrdered By: Valdez Manrique on 12-22-2023 Lymphocytes (Bld) [#/Vol] 3.0 10*3/uL Normal 1.00-4.8 [facility] Comment on above: Performed By: #### C MP, CBC, PRL ####[facility] [address] Lymphocytes/100 WBC Auto (Bl d)Ordered By: Valdez Manrique on 12-22-2023 Lymphocytes/100 WBC (Bld) Lymphocytes/100 leukocytes in Blood by Automated count . [facility] Lymphocytes/100 leukocytes i n Blood by Automated countOrdered By: Valdez Manrique on 12-22-2023 Lymphocytes/100 WBC (Bld) 32.8 % Normal . [facility] Comment on above: Performed By: #### C MP, CBC, PRL ####[facility] [address] MCH Auto (RBC) [Entitic mass ]Ordered By: Valdez Manrique on 12-22-2023 MCH (RBC) [Entitic mass] MCH [Entitic mass] by Automated count 24.7-34.3 [facility] MCH [Entitic mass] by Automa chandan countOrdered By: Valdez Manrique on 12-22-2023 MCH (RBC) [Entitic mass] 31.9 pg Normal 24.7-34.3 [facility] Comment on above: Performed By: #### C MP, CBC, PRL ####[facility] [address] MCHC Auto (RBC) [Mass/Vol]Or dered By: Valdez Manrique on 12-22-2023 MCHC (RBC) [Mass/Vol] 34.3 g/dL 32.0-35.0 [facility] MCHC (RBC) [Mass/Vol] MCHC [Mass/volume] by Automated count 32.0-35.0 [facility] MCV Auto (RBC) [Entitic vol] Ordered By: Valdez Manrique on 12-22-2023 MCV (RBC) [Entitic vol] MCV [Entitic vol ume] by Automated count 80-100 [facility] MCV [Entitic volume] by Auto mated countOrdered By: Valdez Manrique on 12-22-2023 MCV (RBC) [Entitic vol] 92.8 fL Normal 80-100 [facility] Comment on above: Performed By: #### C MP, CBC, PRL ####[facility] [address] [place] [address] [facility] Monocyte distribution width [Entitic volume] in Blood by AutomatedOrdered By: Valdez Manrique on 12-22-2023 Monocyte distribution width Auto (Bld) [Entitic vol] 16.10 % 0.00-20.00 [facility] Monocyte distribution width Auto (Bld) [Entitic vol] Monocyte distribution width [Entitic volume] in Blood by Automated 0.00-20.00 [facility] Monocytes Auto (Bld) [#/Vol] Ordered By: Valdez Manrique on 12-22-2023 Monocytes (Bld) [#/Vol] Automated blood monocyte count High 0.0-0.8 [facility] Monocytes/100 WBC Auto (Bld) Ordered By: Valdez Manrique on 12-22-2023 Monocytes/100 WBC (Bld) Automated monocyte % . [facility] Neutrophils Auto (Bld) [#/Vo l]Ordered By: Valdez Manrique on 12-22-2023 Neutrophils (Bld) [#/Vol] Neutrophils [#/volume] in Blood by Automated count 1.8-7.7 [facility] Neutrophils [#/volume] in Bl ood by Automated countOrdered By: Valedz Manrique on 12-22-2023 Neutrophils (Bld) [#/Vol] 5.1 10*3/uL Normal 1.8-7.7 [facility] Comment on above: Performed By: #### C MP, CBC, PRL ####[facility] [id number] [place] [address] [facility] Neutrophils/100 WBC Auto (Bl d)Ordered By: Valdez Manrique on 12-22-2023 Neutrophils/100 WBC (Bld) Automated neutrophil % . [facility] No Panel InformationOrdered By: Valdez Manrique on 12-22-2023 Estimated GFR (CKD-EPI) > 60.0 mL/Min [facility] Creatinine Clearance (Chem 78.96 [facility] Nucleated erythrocytes [Pres ence] in Blood by Automated countOrdered By: Valdez Manrique on 12-22-2023 Nucleated RBC Auto Ql (Bld) 0.1 /100{WBC} 0-0.5 [facility] Nucleated RBC Auto Ql (Bld) Nucleated erythrocytes [Presence] in Blood by Automated count 0-0.5 [facility] Platelet mean volume Auto (B ld) [Entitic vol]Ordered By: Valdez Manrique on 12-22-2023 Platelet mean volume (Bld) [Entitic vol] Platelet mean volume [Entitic volume] in Blood by Automated count 6.3-10.7 [facility] Platelet mean volume [Entiti c volume] in Blood by Automated countOrdered By: Valdez Manrique on 12-22-2023 Platelet mean volume (Bld) [Entitic vol] 8.4 fL Normal 6.3-10.7 [facility] Comment on above: Performed By: #### C MP, CBC, PRL ####[facility] [id number] Platelets Auto (Bld) [#/Vol] Ordered By: Valdez Manrique on 12-22-2023 Platelets (Bld) [#/Vol] Platelets [#/vol ume] in Blood by Automated count 150-450 [facility] Platelets [#/volume] in Bloo d by Automated countOrdered By: Valdez Manrique on 12-22-2023 Platelets (Bld) [#/Vol] 296 10*3/uL Normal 150-450 [facility] Comment on above: Performed By: #### C MP, CBC, PRL ####[facility] [id number] [place] [address] Potassium [Moles/volume] in Serum or PlasmaOrdered By: Valdez Manrique on 12-22-2023 Potassium [Moles/Vol] 3.6 mmol/L Normal 3.5-5.1 [facility] Comment on above: Performed By: #### C MP, CBC, PRL ####[facility] [id number] [place] [address] Potassium [Moles/Vol] Potassium [Moles/volume] in Serum or Plasma 3.5-5.1 [facility] Prolactinon 12-22-2023 Prolactin 118.42 ng/mL High 3.34-26.72 [facility] Comment on above: Result Comment: PERF ORMED BY: [facility] [id number] PATHOLOGIST SOLAR BUSINESS DEVELOPER OLU MEJIA M.D. Performed By: #### C MP, CBC, PRL ####[facility] [id number] [place] [id number] [facility] Prolactin [Mass/volume] in S benedicto or PlasmaOrdered By: Valdez Manrique on 12-22-2023 Prolactin [Mass/Vol] 118.42 ng/mL High 3.34-26.72 [facility] Prolactin [Mass/Vol] Prolactin [Mass/volume] in Serum or Plasma High 3.34-26.72 [facility] Protein [Mass/volume] in Ser um or PlasmaOrdered By: Valdez Manrique on 12-22-2023 Protein [Mass/Vol] 7.9 g/dL Normal 6.4-8.9 [facility] Comment on above: Performed By: #### C MP, CBC, PRL ####[place] [address] [place] [id number] [facility] Protein [Mass/Vol] Protein [Mass/volume ] in Serum or Plasma 6.4-8.9 [facility] RBC Auto (Bld) [#/Vol]Ordere d By: Valdez Manrique on 12-22-2023 RBC (Bld) [#/Vol] Erythrocytes [#/volume] in Blood by Automated count 3.60-5.00 [facility] Serum globulin measurement b y calculation (mass/volume)Ordered By: Valdez Manrique on 12-22-2023 Globulin (S) [Mass/Vol] 3.1 g/dL Normal F [facility] Comment on above: Performed By: #### C MP, CBC, PRL ####[facility] [id number] Serum or plasma albumin/glob ulin mass ratioOrdered By: Valdez Manrique on 12-22-2023 Albumin/Globulin [Mass ratio] 1.5 {ratio} Normal [facility] Comment on above: Performed By: #### C MP, CBC, PRL ####[place] [address] [place] [id number] [facility] Albumin/Globulin [Mass ratio] Serum or plasma albumin/globulin mass ratio [facility] Serum or plasma anion gap de terminationOrdered By: Valdez Manrique on 12-22-2023 Anion gap [Moles/Vol] 17.8 mmol/L High 6.0-15.0 [facility] Comment on above: Performed By: #### C MP, CBC, PRL ####[place] [address] [place] [id number] [facility] Anion gap [Moles/Vol] Serum or plasma an ion gap determination High 6.0-15.0 [facility] Sodium [Moles/volume] in Ser um or PlasmaOrdered By: Valdez Manrique on 12-22-2023 Sodium [Moles/Vol] 139 mmol/L Normal 136-145 [facility] Comment on above: Performed By: #### C MP, CBC, PRL ####[place] [id number] [facility] Sodium [Moles/Vol] Sodium [Moles/volume ] in Serum or Plasma 136-145 [facility] Urea nitrogen [Mass/volume] in Serum or PlasmaOrdered By: Valdez Manrique on 12-22-2023 Urea nitrogen [Mass/Vol] 6 mg/dL Low 7-25 [facility] Comment on above: Performed By: #### C MP, CBC, PRL ####[place] [id number] [facility] Urea nitrogen [Mass/Vol] Urea nitrogen [Mass/volume] in Serum or Plasma Low 7-25 [facility] WBC Auto (Bld) [#/Vol]Ordere d By: Valdez Manrique on 12-22-2023 WBC (Bld) [#/Vol] Leukocytes [#/volume ] in Blood by Automated count 3.8-11.6 [facility] Taryn 12-19-2023 DASHA Telephone (NE50MN) QUENTIN BIRD ([id number]) 4 F Date Time Provider Department 12/19/23 DAISY DE LENO NE50MN During your visit today, we recorded the following information about you: Joellen Breaux 12/19/2023 8:01 AM Signed Prior Authorization Needed: Received by: Fax Requested by (pharmacy name): [facility] Phone number: [phone] Name of medication: Nayzilam Strength and dosage: 5mgSig: Use 1 spray in one nostril as needed for seizures lasting longer than 2 minutes. Insurance company name and phone #: CMM HUNTER: [id number] Patient ID: PCN #: BIN#: Group #: Patient of Dr. De Leon Forwarded to nurse. Asuncion Garcia RN 12/19/2023 11:04 AM Signed PA done via CMM. (Hunter: [id number]) PA Rx #: [id number] Status: sent to plan. BRAYDEN Hunter Nina, [...] Encounter Status:Closed by ASUNCION GARCIA on 12/19/23 [facility] 11-19-2023 [facility] Telephone (NE50MN) QUENTIN BIRD ([id number]) 4 F Date Time Provider Department 11/19/23 DAISY DE LEON NE50MN During your visit today, we recorded the following information about you: Joellen Breaux 11/19/2023 9:09 AM Signed Form received: From (agency / facility): BMV manager personal (if given): Quentin Bird Phone #: [phone] (home) Fax # : [phone] Information requested: Request for physician statement Patient of Dr. De Leon Forwarded to nurse. Asuncion Garcia RN 11/19/2023 12:54 PM Signed BMV form received. Onset- 4 years (2019) Last SZ- 09/08/2023 BMV form is for ID purposes only. BMV form sent to Dr. De Leon to review and sign via [email or web address]. BRAYDEN Hunter Nina, RN 11/19/2023 1:07 PM Signed BMV form signed by Dr. De Leon via [email or web address]. Copies sent to [employer]Tag, pt e-mail and BMV special unit via [email or web address]. Asuncion Garcia RN Allergies As of Date: 11/19/2023 (No Known Allergies) Date Reviewed: 11/13/2023 Reviewed by: Ramona Crabtree MA - Fully Assessed Reason for Visit: Forms [453] Cmt: BMV Prescriptions as of 11/19/2023 - [...] Encounter Status:Closed by ASUNCION GARCIA on 11/19/23 [facility] QUENT[facility] ([id number]) 02 F Date Time Provider Department 11/14/23 [...] remission*09/28/2020 Encounter Status:Closed by ASUNCION GARCIA on 11/18/23 Normal [facility] CNOVon 11-13-2023 CNOV Office Visit (NE50MN ) QUENTIN BIRD ([id number]) 4 F Date Time Provider Department 11/13/23 3:20 PM DAISY DE LEON NE50MN During your visit today, we recorded the following information about you: Pulse Blood pressure Weight Height 86/minute 109/63 68 kg 1.524 m Daisy De Leon DO 11/19/2023 9:49 AM Signed [facility] Patient Name: Quentin BANEGAS Date of : 2000 INITIAL EPILEPSY CLINIC NOTE 11/13/2023 3:20 PM CHIEF COMPLAINT: New Patient (New NI Patient ) HISTORY OF PRESENT ILLNESS Ms. Bird is a 23 year old female seen in [facility] Out[facility] for initial consultation. [...] have seizure. 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 Currently holding [...] She is currently seeing a PCP at [facility]. Total # of Current Anti-seizure Medications: Side [...] Anti-seizure Therapies: (more content not included)... Normal [facility] IGP,APTIMA HPV,AGE GDLNon AGE GDLN ACOG TESTING Note . [facility] Comment on above: TESTS RESULT FLAG UN ITS REF RANGE LAB Clinician Provided Cytology Information Source.............Cervix;Endocervix No. of containers..01 ThinPrep Vial Age Algo ACOG Ramu... FLAG LEGEND: L-Low Normal,H-High Normal,LL-Alert Low,HH-Alert High <-Panic Low,>-Panic High,A-Abnormal,AA-Critical Abnormal Performed at: 01 =[facility] [address] [place] [address] Johanna Watson MD, IGP, RFX APTIMA HPV ASCU Note . [facility] Comment on above: TESTS RESULT FLAG UN ITS REF RANGE LAB DIAGNOSIS: 02 NEGATIVE FOR INTRAEPITHELIAL LESION OR MALIGNANCY. Specimen adequacy: 02 Satisfactory for evaluation. Endocervical and/or squamous metaplastic cells (endocervical component) are present. Performed by: Lucho Patrick, Event Planning Manager ([facility]) . 02 Note: Note 02 The Pap [...] <-Panic Low,>-Panic High,A-Abnormal,AA-Critical Abnormal Performed at: [address] [address] Johanna Watson MD, Performed at: =[facility] [id number] Lieutenant Firefighter: Johanna Watson MD, Phone: [phone] Performed at: [address] [id number] Lieutenant Firefighter: Johanna Watson MD, Phone: [phone] BRUSH-SPATULA CERVIX ENDOCERVIX CLINISYNC [facility] URETHRITIS/DISCHARGE PLUS VA GINITIS (HTRX)on 10-30-2023 ATOPOBIUM VAGINAE 26.070 Abnormal [facility] ATOPOBIUM VAGINAE Detected Abnormal [facility] BVAB 2,3 (BACTERIAL VAGINOSIS ASSOCIATED BACTERIA 2, 3); MOBILUNCUS SPP 0.000 [facility] BVAB 2,3 (BACTERIAL VAGINOSIS ASSOCIATED BACTERIA 2, 3); MOBILUNCUS SPP Not detected [facility] CHA ALBICANS, PARAPSILOSIS, TROPICALIS 0.000 [facility] CHA ALBICANS, PARAPSILOSIS, TROPICALIS Not detected [facility]RATA [facility] GLAB[facility]ATA Not detected [facility] CHA KRUSEI 0.000 [facility] CHA KRUSEI Not detected [facility] CHLAMYDIA TRACHOMATIS 0.000 [facility] CHLAMYDIA TRACHOMATIS Not detected N [facility] ERMB, C; MEFA 27.343 Abnormal [facility] ERMB, C; MEFA Detected Abnormal [facility] GARDNERELLA VAGINALIS 24.051 Abnormal [facility] GARDNERELLA VAGINALIS Detected Abnormal [facility] Healthcare Interpretation and review of laboratory results Abnormal [facility] MEGASPHAERA (TYPES 1, 2) 0.000 [facility] MEGASPHAERA (TYPES 1, 2) Not detected [...] N [facility] QUENTIN BIRD ([id number]) 4 F Date Time Provider Department 09/16/23 CARLA RICO NE50MN During your visit today, we recorded the following information about you: Joellen Breaux 09/16/2023 10:38 AM Signed Prior Authorization Needed: Received by: Fax Requested by (pharmacy name): [facility] Phone number: [phone] Name of medication: LCM Strength and dosage: 200mg Take 1 tablet by mouth two times a day. 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 Insurance company name and phone #: CMM HUNTER: [id number] Patient ID: PCN #: BIN#: Group #: Patient of Dr. Simms Forwarded to nurse. Sommer Carrillo RN 09/16/2023 11:08 AM Signed Spoke with PA department, no PA is needed. Sommer Carrillo RN Allergies As of Date: 09/16/2023 (No Known Allergies) Date Reviewed: 08/13/2023 Reviewed by: Radha Crawley MA - Fully Assessed Reason for Visit: Medication Authorization [8982] Cmt: Lacosamide Prescriptions as of 09/16/2023 - [...] Encounter Status:Closed by SOMMER CARRILLO on 09/16/23 [facility] Taryn 09-09-2023 CNPN Telephone (NEPEMN) QUENTIN BIRD ([id number]) 4 F Date Time Provider Department 09/09/23 [...] recommendation Routed to Dr. Holland James, RN Carla Rico MD 09/09/2023 6:12 PM Signed We can increase the Vimpat to 200mg Po BID. Please discuss missing doses of medication with the patient. A pill box is important to keep track of the medications. Thanks MD Jacob Jean Kimberly A (Rn)BRAYDEN 09/10/2023 11:33 AM Signed Spoke to Ms. [...] Encounter Status:Closed by CARLA RICO on 09/10/23 [facility] CNOVmariangel 08-13-2023 CNOV Office Visit (BREANAEMN ) QUENTIN BIRD ([id number]) 4 F Date Time Provider Department 08/13/23 2:00 PM CARLA RICO During your visit today, we recorded the following information about you: Temperature Pulse Respiration Blood pressure 97.6 degrees 73/minute 20/minute 117/69 Weight Height Last Period 71.9 kg 1.524 m 07/28/23 Carla Rico MD 08/13/2023 7:51 PM Signed [facility] Section of Pediatric Epilepsy/Neurology Epilepsy [facility], [facility] Date of Service: 02/01/2023 RETURN VISIT NOTE [...] had a (more content not included)... Normal [facility] CNOVon 04-29-2023 CNOV Office Visit (NESLFV ) QUENTIN BIRD ([id number]) 4 F Date Time Provider Department 04/29/23 1:00 PM THAO PAGAN NESLFV During your visit today, we recorded the following information about you: Pulse Blood pressure Weight Height 70/minute 104/70 71.8 kg 1.524 m Thao Pagan MD 04/29/2023 3:25 PM Signed [facility] Sleep Disorders Center New Patient Evaluation PATIENT NAME: Quentin Bird DATE OF SERVICE: April 29, 2023 CONSULTING PROVIDER: Carla Chowdary [address] [facility] [address] REASON FOR CONSULT: Carla Chowdary sends the [...] negative study. 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 Normal [facility] 25(OH)D3 Bannermariangel 2022 25-hydroxyvitamin D3 [Mass/Vol] 29.0 ng/mL Low 31.0-80.0 [facility] Comment on above: Order Comment: Speci men Type: BLOOD SPECIMEN Ordering Facility: [facility] Address: [address] [place] [address] Result Comment: Clas sification of 25 [place] Vitamin D status: Deficiency/Insufficiency: < or = 30 ng/ml. Sufficiency/Optimal Levels: 31-80 ng/mL Toxicity: > 100 ng/mL. Test performed by chemiluminescent immunoassay. Performed By: #### 1 [id number] #### [facility] CLIA [id number] [address] [facility] [place] [address] [place] CNOVon 02-01-2023 CNOV Office Visit ([facility] ) QUENTIN BIRD ([id number]) 4 F Date Time Provider Department 02/01/23 3:40 PM CARLA RICO [facility] During your visit today, we recorded the following information about you: Pulse Blood pressure Weight Height 67/minute 117/70 68.4 kg 1.545 m Carla Rico MD 02/01/2023 4:38 PM Signed [facility] Section of Pediatric Epilepsy/Neurology Epilepsy [facility], [facility] Date of Service: 02/01/2023 RETURN VISIT NOTE [...] two times a day for 180 days. to-gu-dkcr-FA-Ca carb-vit K (WOMEN'S MULTIVITAMIN) 18 mg-400 mcg- [...] benefits, an (more content not included)... Normal [facility] LACOSAMIDEon 02-01-2023 DESMETHYLLACOSAMIDE 0.9 ug/mL Normal <2.6 [facility] Comment on above: Order Comment: Manuela lockett Type: BLOOD SPECIMEN Ordering Facility: [facility] Address: [address] [place] [address] Result Comment: Expe cted concentration of patients receiving 200-400 mg/day is up to 2.5 ug/mL for Desmethyllacosamide. This test was developed and its performance characteristics determined by [facility] ([facility]). It has not been cleared or approved by the FDA. [facility] is regulated under CLIA as qualified to perform high-complexity testing. This test is used for clinical purposes. It should not be regarded as investigational or for research. Performed By: #### L ACOS #### [facility] CLIA [id number] [address] [place] [address] [place] Lacosamide [Mass/Vol] 6.2 ug/mL Normal 2.2-19.8 [facility] Comment on above: Order Comment: Manuela lockett Type: BLOOD SPECIMEN Ordering Facility: [facility] Address: [address] [place] [address] Result Comment: Expe cted concentration of patients receiving 200-400 mg/day is 2.2-19.8 ug/mL for Lacosamide. This test was developed and its performance characteristics determined by [facility] ([facility]). It has not been cleared or approved by the FDA. [facility] is regulated under CLIA as qualified to perform high-complexity testing. This test is used for clinical purposes. It should not be regarded as investigational or for research. Performed By: #### L ACOS #### [facility] CLIA [id number] [address] [place], [place] [id number] [place] Vital Signs Date Time Vital Sign Value Performing Clinician Maris de la paz 10-13-2024 08:35-0400 Body mass index (BMI) [Ratio] 27.3 kg/m2 Jennifer Springfield PA Work Phone: [facility] 10-13-2024 08:35-0400 Body weight 65.55 kg Jennifer Justice PA Work Phone: [facility] 10-13-2024 08:35-0400 Diastolic blood pressure 60 mm[Hg] Jennifer Justice PA Work Phone: [facility] 10-13-2024 08:35-0400 Systolic blood pressure 102 mm[Hg] Jennifer Springfield PA Work Phone: [facility] 10-06-2024 10:08-0400 Body mass index (BMI) [Ratio] 26.79 kg/m2 Jennifer Springfield PA Work Phone: [facility] 10-06-2024 10:08-0400 Body weight 64.32 kg Jennifer Justice PA Work Phone: [facility] 10-06-2024 10:08-0400 Diastolic blood pressure 64 mm[Hg] Jennifer Justice PA Work Phone: [facility] 10-06-2024 10:08-0400 Systolic blood pressure 104 mm[Hg] Jennifer Justice PA Work Phone: [facility] 09-16-2024 10:07-0400 Body mass index (BMI) [Ratio] 27.63 kg/m2 Andreas Samson FORGE UTILITY WORKER Work Phone: [facility] 09-16-2024 10:07-0400 Body weight 66.34 kg Andreas Samson NP Work Phone: [facility] 09-16-2024 10:07-0400 Diastolic blood pressure 72 mm[Hg] Andreas Samson FORGE UTILITY WORKER Work Phone: [facility] 09-16-2024 10:07-0400 Systolic blood pressure 106 mm[Hg] Andreas Samson FORGE UTILITY WORKER Work Phone: [facility] 08-27-2024 12:31-0400 Body weight 71.4 kg Norylizy Aguilar FORGE UTILITY WORKER-C Work Phone: [facility] 08-27-2024 12:31-0400 Diastolic blood pressure 72 mm[Hg] Nory Brandon FORGE UTILITY WORKER-C Work Phone: [facility] 08-27-2024 12:31-0400 Heart rate 88 /min Norylizy Aguilar FORGE UTILITY WORKER-C Work Phone: [facility] 08-27-2024 12:31-0400 SaO2% (BldA) [Mass fraction] 99 % Norylizy Aguilar FORGE UTILITY WORKER-C Work Phone: [facility] 08-27-2024 12:31-0400 Systolic blood pressure 108 mm[Hg] Nory Wilkinsman FORGE UTILITY WORKER-C Work Phone: [facility] 08-26-2024 14:23-0400 Body mass index (BMI) [Ratio] 27.74 kg/m2 Jonathan Clara DO Work Phone: [facility] 08-26-2024 14:23-0400 Body weight 66.59 kg Jonathan Clara DO Work Phone: [facility] 08-26-2024 14:23-0400 Diastolic blood pressure 68 mm[Hg] Jonathan Clara DO Work Phone: [facility] 08-26-2024 14:23-0400 Systolic blood pressure 104 mm[Hg] Jonathan Clara DO Work Phone: [facility] 06-18-2024 15:28-0400 Body mass index (BMI) [Ratio] 30.04 kg/m2 Gabi Mcclure DO Work Phone: [facility] 06-18-2024 15:28-0400 Body weight 72.12 kg Christopher Ren DO Work Phone: [facility] 06-18-2024 15:28-0400 Diastolic blood pressure 72 mm[Hg] Christopher Ren DO Work Phone: [facility] 06-18-2024 15:28-0400 Heart rate 79 /min Christopher Ren DO Work Phone: [facility] 06-18-2024 15:28-0400 SaO2% (BldA) [Mass fraction] 98 % Christopher Ren DO Work Phone: [facility] 06-18-2024 15:28-0400 Systolic blood pressure 106 mm[Hg] Christopher Ren DO Work Phone: [facility] 04-13-2024 16:16-0500 Body height 154.9 cm Nory Aguilar NP Work Phone: [facility] 04-13-2024 16:16-0500 Body mass index (BMI) [Ratio] 30.16 kg/m2 Nory Aguilar FORGE UTILITY WORKER Work Phone: [facility] 04-13-2024 16:16-0500 Body weight 72.39 kg Nory Aguilar FORGE UTILITY WORKER Work Phone: [facility] 04-13-2024 16:16-0500 Diastolic blood pressure 78 mm[Hg] Nory Aguilar NP Work Phone: [facility] 04-13-2024 16:16-0500 Heart rate 64 /min Nory Aguilar FORGE UTILITY WORKER Work Phone: [facility] 04-13-2024 16:16-0500 Systolic blood pressure 108 mm[Hg] Nory Aguilar FORGE UTILITY WORKER Work Phone: [facility] 03-16-2024 17:51-0500 Body temperature 99.6 [degF] PHYSICIAN NO [facility] 03-16-2024 17:51-0500 Diastolic blood pressure 53 mm[Hg] PHYSICIAN NO [facility] 03-16-2024 17:51-0500 Heart rate 119 /min PHYSICIAN NO [facility] 03-16-2024 17:51-0500 Respiratory rate 18 /min PHYSICIAN NO [facility] 03-16-2024 17:51-0500 SaO2% (BldA) [Mass fraction] 99 % PHYSICIAN NO [facility] 03-16-2024 17:51-0500 Systolic blood pressure 101 mm[Hg] PHYSICIAN NO [facility] 03-16-2024 13:37-0500 Body height 152.4 cm PHYSICIAN NO [facility] 03-16-2024 13:37-0500 Body weight 71.25 kg PHYSICIAN NO [facility] 03-04-2024 09:54-0500 Diastolic blood pressure 73 mm[Hg] PHYSICIAN NO [facility] 03-04-2024 09:54-0500 Heart rate 95 /min PHYSICIAN NO [facility] 03-04-2024 09:54-0500 Respiratory rate 20 /min PHYSICIAN NO [facility] 03-04-2024 09:54-0500 SaO2% (BldA) [Mass fraction] 100 % PHYSICIAN NO [facility] 03-04-2024 09:54-0500 Systolic blood pressure 147 mm[Hg] PHYSICIAN NO [facility] 03-04-2024 09:06-0500 Body height 152.4 cm PHYSICIAN NO [facility] 03-04-2024 09:06-0500 Body temperature 98.8 [degF] PHYSICIAN NO [facility] 03-04-2024 09:06-0500 Body weight 68.07 kg PHYSICIAN NO [facility] 01-09-2024 14:30-0500 Body height 152.4 cm Daisy De Leon DO Work Phone: [facility] 01-09-2024 14:30-0500 Body mass index (BMI) [Ratio] 30.27 kg/m2 Daisy De Leon DO Work Phone: [facility] 01-09-2024 14:30-0500 Body weight 70.31 kg Daisy De Leon DO Work Phone: [facility] 01-09-2024 14:30-0500 Diastolic blood pressure 68 mm[Hg] Daisy Davidsonrean DO Work Phone: [facility] 01-09-2024 14:30-0500 Heart rate 62 /min Daisy Davidsonrean DO Work [facility]: [facility] [facility] 01-09-2024 14:30-0500 Respiratory rate 18 /min Daisy Davidsonrean DO Work Phone: [facility] 01-09-2024 14:30-0500 SaO2% (BldA) [Mass fraction] 98 % Daisy Cedeñorean DO Work Phone: [facility] 01-09-2024 14:30-0500 Systolic blood pressure 114 mm[Hg] Daisy Cedeñorean DO Work Phone: [facility] 12-22-2023 18:17-0500 Diastolic blood pressure 67 mm[Hg] PHYSICIAN NO [facility] 12-22-2023 18:17-0500 Heart rate 125 /min PHYSICIAN NO [facility] [place] 12-22-2023 18:17-0500 Respiratory rate 18 /min PHYSICIAN NO [facility] 12-22-2023 18:17-0500 SaO2% (BldA) [Mass fraction] 100 % PHYSICIAN NO [facility] 12-22-2023 18:17-0500 Systolic blood pressure 125 mm[Hg] PHYSICIAN NO [facility] 12-22-2023 16:55-0500 Body height 152.4 cm PHYSICIAN NO [facility] [place] 12-22-2023 16:55-0500 Body temperature 97.6 [degF] PHYSICIAN NO [facility] 12-22-2023 16:55-0500 Body weight 68.03 kg PHYSICIAN NO [facility] [place] 12-16-2023 09:47-0400 Body mass index (BMI) [Ratio] 31.91 kg/m2 Jennifer CALLAWAY Work Phone: [facility] 12-16-2023 09:47-0400 Body weight 74.12 kg Jennifer Elkinsey PA Work Phone: [facility] 12-16-2023 09:47-0400 Diastolic blood pressure 64 mm[Hg] Jennifer Elkinsey PA Work Phone: [facility] 12-16-2023 09:47-0400 Systolic blood pressure 102 mm[Hg] Jennifer Elkinsey PA Work Phone: [facility] 11-13-2023 14:58-0400 Body height 152.4 cm Daisy Chiprean DO Work Phone: [facility] 11-13-2023 14:58-0400 Body mass index (BMI) [Ratio] 29.29 kg/m2 Daisy Chiprean DO Work Phone: [facility] 11-13-2023 14:58-0400 Body weight 68.04 kg Daisy Chiprean DO Work Phone: [facility] 11-13-2023 14:58-0400 Diastolic blood pressure 63 mm[Hg] Daisy Chiprean DO Work Phone: [facility] 11-13-2023 14:58-0400 Heart rate 86 /min Daisy Chiprean DO Work Phone: [facility] 11-13-2023 14:58-0400 Systolic blood pressure 109 mm[Hg] Daisy Chiprean DO Work Phone: [facility] 10-28-2023 15:34-0400 Body height 152.4 cm Jonathan Clara DO Work Phone: [facility] 10-28-2023 15:34-0400 Body mass index (BMI) [Ratio] 30.66 kg/m2 Jonathan Clara DO Work Phone: [facility] 10-28-2023 15:34-0400 Body weight 71.22 kg Jonathan Clara DO Work Phone: [facility] 10-28-2023 15:34-0400 Diastolic blood pressure 78 mm[Hg] Jonathan Clara DO Work Phone: [facility] 10-28-2023 15:34-0400 Systolic blood pressure 118 mm[Hg] Jonathan Clara DO Work Phone: [facility] 08-13-2023 13:46-0400 Body height 152.4 cm Carla Chowdary MD Work Phone: [facility] 08-13-2023 13:46-0400 Body mass index (BMI) [Ratio] 30.96 kg/m2 Carla Chowdary MD Work Phone: [facility] 08-13-2023 13:46-0400 Body temperature 97.59 [degF] Carla Chowdary MD Work Phone: [facility] 08-13-2023 13:46-0400 Body weight 71.9 kg Carla Chowdary MD Work Phone: [facility] 08-13-2023 13:46-0400 Diastolic blood pressure 69 mm[Hg] Carla Chowdary MD Work Phone: [facility] 08-13-2023 13:46-0400 Heart rate 73 /min Carla Chowdary MD Work Phone: [facility] 08-13-2023 13:46-0400 Respiratory rate 20 /min Carla Chowdary MD Work Phone: [facility] 08-13-2023 13:46-0400 SaO2% (BldA) [Mass fraction] 100 % Carla Chowdary MD Work Phone: [facility] 08-13-2023 13:46-0400 Systolic blood pressure 117 mm[Hg] Carla Chwodary MD Work Phone: [facility] 06-14-2023 11:44-0400 Body height 152.4 cm [facility] 06-14-2023 11:44-0400 Body mass index (BMI) [Ratio] 30.2 kg/m2 [facility] 06-14-2023 11:44-0400 Body temperature 98.9 [degF] [facility] 06-14-2023 11:44-0400 Body weight 70.36 kg [facility] 06-14-2023 11:44-0400 Diastolic blood pressure 82 mm[Hg] [facility] 06-14-2023 11:44-0400 Heart rate 96 /min [facility] 06-14-2023 11:44-0400 Respiratory rate 18 /min [facility] 06-14-2023 11:44-0400 SaO2% (BldA) [Mass fraction] 99 % [facility] 06-14-2023 11:44-0400 Systolic blood pressure 126 mm[Hg] [facility] 04-29-2023 12:50-0400 Body height 152.4 cm Thao Pagan MD Work Phone: [facility] 04-29-2023 12:50-0400 Body weight 71.8 kg Thao Pagan MD Work Phone: [facility] 04-29-2023 12:50-0400 Diastolic blood pressure 70 mm[Hg] Thao Pagan MD Work Phone: [facility] 04-29-2023 12:50-0400 Heart rate 70 /min Thao Pagan MD Work Phone: [facility] 04-29-2023 12:50-0400 Systolic blood pressure 104 mm[Hg] Thao Pagan MD Work Phone: [facility] 04-22-2023 05:15-0500 Body height 154.5 cm [facility] Work Phone: [facility] 04-22-2023 05:15-0500 Body weight 68.4 kg [facility] Work Phone: [facility] 02-01-2023 15:23-0500 Body height 154.5 cm Carla Chowdary MD Work Phone: [facility] 02-01-2023 15:23-0500 Body weight 68.45 kg Carla Chowdary MD Work Phone: [facility] 02-01-2023 15:23-0500 Diastolic blood pressure 70 mm[Hg] Carla Chowdary MD Work Phone: [facility] 02-01-2023 15:23-0500 Heart rate 67 /min Carla Chowdary MD Work Phone: [facility] 02-01-2023 15:23-0500 SaO2% (BldA) [Mass fraction] 100 % Carla Chowdary MD Work Phone: [facility] 02-01-2023 15:23-0500 Systolic blood pressure 117 mm[Hg] Carla Chowdary MD Work Phone: [facility] Encounters Encounter Date Encounter Type Care Provider Facility Start: 11-05-2024 End: 11-05-2024 Patient encounter procedure Gabi Porras DO -Lab [facility] Work Phone: Start: 11-05-2024 End: 11-05-2024 ambulatory Nory TRIPATHI Work Phone: [facility] Work Phone: Start: 11-05-2024 End: 11-05-2024 External Result Encounter Jonathan Clara DO Work Phone: [facility] Unsolicited Start: 11-05-2024 End: 11-05-2024 External Result Encounter Jonathan Clara DO Work Phone: [facility] External Department Unsolicited Start: 10-13-2024 End: 10-13-2024 Bamboo flowsheet Jennifer CALLAWAY Work Phone: [facility] Start: 10-13-2024 End: 10-13-2024 Bamboo flowsheet Jennifer CALLAWAY Work Phone: [facility] Start: 10-13-2024 End: 10-13-2024 Office outpatient visit 15 minutes Jennifer CALLAWAY Work Phone: [facility] Comment on above: Menorrhagia with irr egular cycle; Insulin resistance; Herpes genitalis in women Start: 10-13-2024 End: 10-13-2024 ambulatory JENNIFER RENDON Not Available Start: 10-08-2024 End: 10-08-2024 Telephone encounter Jennifer Springfield PA Work Phone: [facility] [place] [facility] Start: 10-06-2024 End: 10-06-2024 Bamboo flowsheet Jennifer Springfield PA Work Phone: [facility] [place] [facility] [facility] Start: 10-06-2024 End: 10-09-2024 Bamboo flowsheet Jennifer Justice PA Work Phone: [facility] [place] [facility] Start: 10-06-2024 End: 10-09-2024 Clinisync Result Encounter Jennifer CALLAWAY Work Phone: [facility] External Department Unsolicited Start: 10-06-2024 End: 10-07-2024 External Result Encounter Jennifer Springfield PA Work Phone: [facility] External Department Unsolicited Start: 10-06-2024 End: 10-06-2024 ambulatory JENNIFER RENDON Not Available Start: 10-06-2024 End: 10-06-2024 Office outpatient visit 15 minutes Jennifer CALLAWAY Work Phone: [facility] Comment on above: Vaginal discharge; STD exposure; Vaginal lesion Start: 09-16-2024 End: 09-16-2024 Bamboo flowsheet Andreas Samson [employer] WORKER Work Phone: [facility] Start: 09-16-2024 End: 09-18-2024 Bamboo flowsheet Andreas Samson [employer] UTILITY WORKER Work Phone: [facility] [place] [facility] Start: 09-16-2024 End: 09-17-2024 Clinisync Result Encounter Andreas Samson NP Work Phone: [facility] External Department Unsolicited Start: 09-16-2024 End: 09-18-2024 External Result Encounter Andreas Samson [employer] UT[employer] WORKER Work Phone: [facility] External Department Unsolicited Start: 09-16-2024 End: 09-16-2024 ambulatory ANDREAS KRISTEN Not Available Start: 09-16-2024 End: 09-16-2024 Office outpatient visit 15 minutes Andreas Samson [employer] UTILITY WORKER Work Phone: [facility] [place] Comment on above: STD exposure; Sexually transmitted disease exposure; BV (bacterial vaginosis) Start: 09-07-2024 End: 09-07-2024 ambulatory Kathryn Escobedo APRN-GUN SYNCHRONIZER Facility:[facility] Start: 08-27-2024 End: 08-27-2024 ambulatory Nory Aguilar FORGE UTILITY WORKER-C Work Phone: [facility] Work Phone: Start: 08-27-2024 End: 08-27-2024 Patient encounter procedure Gabi Porras [facility] Work Phone: Start: 08-26-2024 End: 08-26-2024 Bamboo flowsheet Jonathan Clara DO Work Phone: [facility] Start: 08-26-2024 End: 08-27-2024 Bamboo flowsheet Jonathan Clara DO Work Phone: [facility] Start: 08-26-2024 End: 08-27-2024 External Result Encounter Andreas Samson [employer] UT[employer] WORKER Work Phone: [facility] External Department Unsolicited Start: 08-26-2024 End: 08-26-2024 ambulatory JONATHAN CLARA Not Available Start: 08-26-2024 End: 08-26-2024 Office outpatient visit 15 minutes Jonathan Clara DO Work Phone: [facility] Comment on above: BV (bacterial vagino sis) (Primary Dx); Menorrhagia with irregular cycle Start: 08-17-2024 End: 08-18-2024 Refill Yanet Brito PA-C Work Phone: Neurology Comment on above: Refill Request Start: 06-18-2024 End: 06-18-2024 Office outpatient new 45 minutes Gabi Chunett DO Work Phone: [facility] [place] Comment on above: 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) Start: 06-18-2024 End: 06-18-2024 ambulatory GABI MCCLURE Not Available Start: 06-18-2024 End: 06-18-2024 Bamboo flowsheet Dannnat Chunett DO Work Phone: [facility] [place] Start: 06-18-2024 End: 06-18-2024 Bamboo flowsheet Dannnat Chunett DO Work Phone: [facility] Start: 05-21-2024 End: 05-22-2024 Refill Hosea Ku PA-C Work Phone: Neurology Comment on above: Refill Request Start: 05-18-2024 End: 05-18-2024 Patient encounter procedure PHYSICIAN NO [facility] Work Phone: Start: 05-18-2024 End: 05-18-2024 ambulatory PHYSICIAN NO [facility] Work Phone: Start: 04-20-2024 End: 04-20-2024 External Result Encounter Nory Aguilar NP Work Phone: [facility] External [facility] Unsolicited Start: 04-20-2024 End: 04-20-2024 External Result Encounter Nory Aguilar NP Work Phone: [facility] External Department Unsolicited Start: 04-20-2024 End: 04-20-2024 Patient encounter procedure PHYSICIAN NO [facility] Work Phone: Start: 04-20-2024 End: 04-20-2024 ambulatory PHYSICIAN NO [facility] Work Phone: Start: 04-20-2024 Encounter for genera l adult medical examination without abnormal findings Nory Aguilar [facility] Start: 04-15-2024 End: 04-15-2024 ambulatory DAISY DE LEON Facility:[facility] Start: 04-13-2024 End: 04-13-2024 ambulatory NOYR AGUILAR Not Available Start: 04-13-2024 End: 04-13-2024 Patient encounter status Nory Aguilar [employer]GE UTILITY WORKER Work Phone: [facility] Start: 04-13-2024 End: 04-13-2024 Periodic preventive med est patient 18-39 yrs Nory Aguilar [employer]GE UTILITY WORKER Work Phone: [facility] Comment on above: Wellness examination (Primary Dx); Juvenile myoclonic epilepsy, not intractable, with status epilepticus (CMS/HCC); Tachycardia; Screening for deficiency anemia; Screening for cardiovascular condition; Screening for thyroid disorder; Screening for lipid disorders; PCOS (polycystic ovarian syndrome); Recurrent major depression in partial remission (HCC) (CMS/HCC); Anxiety and depression (CMS/HCC) Start: 04-13-2024 End: 04-13-2024 Bamboo flowsheet Nory Aguilar FORGE UTILITY WORKER Work Phone: [facility] Start: 04-13-2024 End: 04-13-2024 Bamboo flowsheet Nory Aguilar [employer]GE UTILITY WORKER Work Phone: [facility] Start: 03-16-2024 End: 03-16-2024 Emergency department patient visit PHYSICIAN NO [facility] Work Phone: Start: 03-04-2024 End: 03-05-2024 ambulatory Daisy De Leon DO Work Phone: Neurology Comment on above: Another seizure Start: 03-04-2024 End: 03-04-2024 Emergency department patient visit PHYSICIAN NO [facility] Work Phone: Start: 03-03-2024 [...] 01-09-2024 End: 01-09-2024 ambulatory DAISY DE LEON Facility:[facility] Start: 01-09-2024 End: 01-10-2024 Telephone encounter Daisy De Leon DO Work Phone: Neurology Comment on above: Orders Start: 12-23-2023 End: 12-23-2023 ambulatory Daisy De Leon DO Work Phone: Neurology Comment on above: Another seizure Start: 12-22-2023 End: 12-22-2023 Emergency department patient visit PHYSICIAN NO [facility] Work Phone: Start: 12-19-2023 End: 12-19-2023 Refill Daisy De Leon DO Work Phone: Neurology Comment on above: Refill Request Medication Authoriza tion (Nayzilam) Start: 12-17-2023 End: 12-18-2023 Refill Daisy De Leon DO Work Phone: Neurology Comment on above: Refill Request Start: 12-16-2023 End: 12-16-2023 Bamboo flowsheet Jennifer CALLAWAY Work Phone: [facility] Start: 12-16-2023 End: 12-16-2023 Bamboo flowsheet Jennifer Rendon PA Work Phone: [facility] Start: 12-16-2023 End: 12-16-2023 Office outpatient visit 15 minutes Jennifer CALLAWAY Work Phone: [facility] Comment on above: Follow-up encounter involving medication Start: 12-16-2023 End: 12-16-2023 ambulatory JENNIFER RENDON Not Available Start: 12-11-2023 End: 12-11-2023 ambulatory PHYSICIAN NO [facility] Work Phone: Start: 12-11-2023 End: 12-11-2023 Patient encounter procedure PHYSICIAN NO [facility] [address] Work Phone: [...] 11-13-2023 End: 11-13-2023 ambulatory DAISY DE LEON Facility:[facility] Start: 10-28-2023 End: 10-28-2023 ambulatory JONATHAN ELIZABETH Not Available Start: 10-28-2023 End: 10-28-2023 Patient encounter procedure Jonathan Braro DO Work Phone: [facility] Start: 10-28-2023 End: 10-28-2023 Periodic preventive [...] 10-28-2023 End: 10-30-2023 External Result Encounter Jonathan Clara DO Work Phone: [facility] External Department Unsolicited Start: 09-16-2023 Telephone encounter Carla Chowdary MD Work Phone: Neurology Comment on above: Medication Authoriza tion (Lacosamide) Start: 09-12-2023 Refill Carla kinney MD Work Phone: Neurology Comment on above: Refill Request Start: 09-09-2023 Telephone encounter Carla Chowdary MD Work Phone: Neurology Comment on above: Seizures Start: 08-13-2023 End: 08-14-2023 ambulatory CARLA CHOWDARY Facility:[facility] Start: 08-13-2023 End: 08-13-2023 Patient encounter procedure Carla Chowdary MD Work Phone: Neurology Comment on above: Juvenile myoclonic e pilepsy, not intractable, with status epilepticus (HCC) Start: 06-14-2023 End: 06-14-2023 Departed Referred TWISTING PRESS OPERATOR Maira Gibson Work Phone: [facility] [place] Work Phone: Start: 06-14-2023 End: 06-14-[address] [facility] Work Phone: Start: 06-14-2023 End: 06-14-2023 Patient encounter procedure [facility] Work Phone: Start: 04-29-2023 End: 04-29-2023 ambulatory THAO PAGAN Facility:[facility] Start: 04-29-2023 End: 04-29-2023 Patient encounter procedure [...] Start: 04-21-2023 End: 04-21-2023 ambulatory CARLA CHOWDARY Facility:[facility] Start: 04-15-2023 Chart abstracting [facility] Work Phone: Neurology Comment on above: PSG Check In Start: 03-26-2023 Refill Carla kinney MD Work Phone: Neurology Comment on above: Refill Request Start: 02-22-2023 End: 02-23-2023 ambulatory ASHLEY CORCORAN Not Available Start: 02-05-2023 Telephone encounter Carla Chowdary MD Work Phone: Neurology Comment on above: Results (Vitamin D) Start: 02-01-2023 End: 02-02-2023 Orders Only Carla Chowdary MD Work Phone: [facility] Comment on above: Juvenile myoclonic e pilepsy, not intractable, with status epilepticus (HCC) (Primary Dx); MECCA (obstructive sleep apnea) Juvenile myoclonic e pilepsy, not intractable, with status epilepticus (HCC) (Primary Dx); Vitamin D deficiency Start: 01-25-2023 End: 01-25-2023 ambulatory ASHLEY CORCORAN Not Available Start: 01-21-2023 Telephone encounter Carla [...] Date Procedure Procedure Detail Performing Clinician Start: 11-05-2024 Gonadotropin chorion ic olga lidia Elizabeth DO Work Phone: Start: 10-06-2024 RECURRENT VAGINITIS (HTRX) Jennifer CALLAWAY Work Phone: Start: 10-06-2024 TB HERPES SIMPLEX V IRUS 1/2 DNA PCR Jennifer CALLAWAY Work Phone: Start: 09-16-2024 HIV AB/P24 AG WITH REFLEX Andreas Samson [employer] UT[employer] WORKER Work Phone: Start: 09-16-2024 RECURRENT VAGINITIS (HTRX) Andreas Samson FORGE UTILITY WORKER Work Phone: Start: 08-26-2024 RECURRENT VAGINITIS (HTRX) Andreas Samson FORGE UTILITY WORKER Work Phone: Start: 04-20-2024 Complete blood count with white cell differential, automated Nory Aguilar FORGE UTILITY WORKER Work Phone: Start: 03-16-2024 Viral nucleic acid assay PHYSICIAN NO FAMILY Start: 03-04-2024 CT of head without contrast PHYSICIAN NO FAMILY Start: 10-28-2023 URETHRITIS/DISCHARGE PLUS VAGINITIS (HTRX) Jonathan Clara DO Work Phone: Start: 10-28-2023 IGP,APTIMA HPV,AGE GDLN Jonathan Clara DO Work Phone: Start: 06-04-2021 Adult depression scr eening assessment Carla Chowdary MD Work Phone: Start: 09-27-2020 Adult depression scr eening assessment Carla Chowdary MD Work Phone: Plan of Treatment Date Care Activity Detail Author Start: 05-26-2025 Urine microalbumin profile DTaP,Tdap,Td Vaccine (7 - Td or Tdap) [facility] Start: 11-27-2024 End: 11-27-2024 ambulatory 11/27/2024 9:00 AM EDT Initial [facility] [place] [address] [place] [address] [place] [address] [facility] [place] Start: 11-27-2024 End: 11-27-2024 Professional / ancillary services management 11/27/2024 8:30 AM EDT Ancillary Procedure [facility] [address] [facility] [id number] [facility] Start: 11-03-2024 End: 11-03-2024 Patient encounter procedure [facility] Start: 10-19-2024 Influenza vaccination [facility] Start: 10-13-2024 End: 10-13-2024 Patient encounter procedure [facility] Comment on above: Arrived Start: 10-06-2024 End: 10-06-2025 HSV 1 antibody, IgG HSV 1 antibody, IgG Lab Routine Vaginal lesion Expected: 10/06/2024 (Approximate), Expires: 10/06/2025 [facility] Comment on above: Expected: 10/06/2024 (Approximate), Expires: 10/06/2025 Start: 10-06-2024 End: 10-06-2025 HSV 2 antibody, IgG HSV 2 antibody, IgG Lab Routine Vaginal lesion Expected: 10/06/2024 (Approximate), Expires: 10/06/2025 [facility] Comment on above: Expected: 10/06/2024 (Approximate), Expires: 10/06/2025 Start: 09-07-2024 End: 09-07-2024 Patient encounter procedure 09/07/2024 2:30 PM EDT Office Visit [facility] [address] [place] [facility] [place] [id number] Gabi Mcclure, DO [address] [place] [address] [facility] Start: 06-18-2024 End: 06-18-2024 Patient encounter procedure 06/18/2024 3:30 PM EDT Office Visit [facility] [place] [address] [place] [id number] Gabi Mcclure, DO [address] [place] [address] Arrived [facility] Comment on above: Arrived Start: 05-25-2024 End: 05-25-2024 Patient encounter procedure 05/25/2024 11:30 AM EDT Office Visit [facility] [address] [phone] Gabi Mcclure DO [address] [place] [address] [facility] Start: 05-20-2024 End: 05-20-2024 Patient encounter procedure 05/20/2024 2:15 PM EDT Office Visit [facility]RE [facility] [address] [place] [address] [address] Gabi Mcclure DO [address] [place] [address] [address] [facility] Start: 04-15-2024 End: 04-15-2024 Patient encounter procedure 04/15/2024 10:30 AM EST Office Visit Neurology [address] [place] [address] Juvenile myoclonic epilepsy, not intractable, 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.B01] Neurology Comment on above: Juvenile myoclonic e pilepsy, not intractable, 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.B01] Start: 04-13-2024 End: 04-13-2025 CBC panel - Blood by Automated count CBC Lab Routine Wellness examination Screening for deficiency anemia Expected: 04/13/2024 (Approximate), Expires: 04/13/2025 [facility] Comment on above: Expected: 04/13/2024 (Approximate), Expires: 04/13/2025 Start: 04-13-2024 End: 04-13-2025 Comprehensive metabolic 2000 panel - Serum or Plasma Comprehensive metabolic panel Lab Routine Wellness examination Screening for cardiovascular condition Expected: 04/13/2024 (Approximate), Expires: 04/13/2025 [facility] Comment on above: Expected: 04/13/2024 (Approximate), Expires: 04/13/2025 Start: 04-13-2024 End: 04-13-2025 ECG 12 lead ECG 12 lead ECG Routine Juvenile myoclonic epilepsy, not intractable, with status epilepticus (CMS/HCC) Tachycardia Expected: 04/13/2024 (Approximate), Expires: 04/13/2025 [facility] Work Phone: Comment on above: Expected: 04/13/2024 (Approximate), Expires: 04/13/2025 Start: 04-13-2024 End: 04-13-2025 Lipid 1996 panel - Serum or Plasma Lipid panel Lab Routine Wellness examination Screening for lipid disorders Expected: 04/13/2024 (Approximate), Expires: 04/13/2025 [facility] Comment on above: Expected: 04/13/2024 (Approximate), Expires: 04/13/2025 Start: 04-13-2024 End: 04-13-2025 Thyrotropin [Units/volume] in Serum or Plasma TSH Lab Routine Wellness examination Screening for thyroid disorder Expected: 04/13/2024 (Approximate), Expires: 04/13/2025 [facility] Comment on above: Expected: 04/13/2024 (Approximate), Expires: 04/13/2025 Start: 04-13-2024 End: 04-13-2025 Thyroxine (T4) free [Mass/volume] in Serum or Plasma T4, free Lab Routine Wellness examination Screening for thyroid disorder Expected: 04/13/2024 (Approximate), Expires: 04/13/2025 [facility] Comment on above: Expected: 04/13/2024 (Approximate), Expires: 04/13/2025 Start: 02-06-2024 End: 05-07-2024 Zonisamide [Mass/volume] in Serum or Plasma ZONISAMIDE Lab Routine Juvenile myoclonic epilepsy, not intractable, with status epilepticus (HCC) Expected: 02/06/2024, Expires: 05/07/2024 [facility] Work Phone: Comment on above: Expected: 02/06/2024 , Expires: 05/07/2024 Start: 01-09-2024 End: 01-09-2024 Patient encounter procedure 01/09/2024 2:40 PM EST Office Visit Neurology [address] [place] [address] Daisy De Leon DO [address] [place] [address] f/u Neurology Comment on above: f/u Start: 01-09-2024 End: 04-09-2024 CBC panel - Blood by Automated count COMPLETE BLOOD COUNT Lab Routine Juvenile myoclonic epilepsy, not intractable, with status epilepticus (HCC) Expected: 01/09/2024, Expires: 04/09/2024 [facility] Work Phone: Comment on above: Expected: 01/09/2024 , Expires: 04/09/2024 Start: 01-09-2024 End: 04-09-2024 Comprehensive metabolic 2000 panel - Serum or Plasma COMPREHENSIVE METABOLIC PANEL Lab Routine Juvenile myoclonic epilepsy, not intractable, with status epilepticus (HCC) Expected: 01/09/2024, Expires: 04/09/2024 [facility] Comment on above: Expected: 01/09/2024 , Expires: 04/09/2024 Start: 01-09-2024 End: 04-09-2024 lamoTRIgine [Mass/volume] in Serum or Plasma LAMOTRIGINE Lab Routine Juvenile myoclonic epilepsy, not intractable, with status epilepticus (HCC) Expected: 01/09/2024, Expires: 04/09/2024 [facility] Comment on above: Expected: 01/09/2024 , Expires: 04/09/2024 Start: 12-16-2023 End: 12-16-2023 Patient encounter procedure 12/16/2023 9:30 AM EDT Office Visit [facility] [address] [id number] Jennifer Rendon PA [address] [place] [address] Arrived [facility] Comment on above: Arrived Start: 11-13-2023 End: 11-13-2023 Patient encounter procedure 11/13/2023 3:20 PM EDT Office Visit Neurology [address] [place], [place] [id number] Daisy De Leon DO [address] [place] [address] transition of care Neurology Comment on above: transition of care Start: 10-23-2023 Screening for malign ant neoplasm of cervix Cervical Cancer Screening [facility] Start: 10-20-2023 Covid-19 Vaccine ( season) Covid-19 Vaccine () [facility] Start: 10-20-2023 Influenza vaccination Influenza Vacc ine (#1) [facility] Start: 06-14-2023 Bacteria identified in Urine by Culture [facility] Start: 02-01-2023 End: 05-03-2023 25-hydroxyvitamin D3 [Mass/volume] in Serum or Plasma [facility] Work Phone: Comment on above: Expected: 02/01/2023 , Expires: 05/03/2023 Start: 02-01-2023 End: 05-03-2023 LACOSAMIDE [facility] Work Phone: Comment on above: Expected: 02/01/2023 , Expires: 05/03/2023 Start: 10-19-2022 Covid-19 Vaccine ( season) Covid-19 Vaccine ( season) [facility] Start: 10-19-2022 Covid-19 Vaccine ( season) Covid-19 Vaccine ( season) [facility] Start: 10-19-2022 Influenza vaccination Influenza Vacc ine (#1) [facility] Start: 06-04-2022 Adult depression screening assessment DEPRESSION SCREENING [facility] Start: 2021 Urine microalbumin profile [facility] Start: 10-19-2021 Influenza vaccination C [facility] Start: 09-27-2021 Adult depression screening assessment DEPRESSION SCREENING [facility] Start: 05-25-2021 COVID-19 VACCINE (2 - Pfizer 3-dose series) COVID-19 VACCINE (2 - Pfizer 3-dose series) [facility] Start: 05-25-2021 COVID-19 VACCINE (2 - Pfizer series) COVID-19 VACCINE (2 - Pfizer series) [facility] Start: 2020 Anxiety Screening Anxiety Screening [facility] Start: 2020 CHLAMYDIA SCREENING (18-24) CHLAMYDIA SCREENING (18-24) [facility] Start: 2020 GC (GONORRHEA) SCREENING (18-24) GC (GONORRHEA) SCREENING (18-24) [facility] Start: 2020 HEPATITIS C SCREENING HEPATITIS C [facility] Start: 2020 Hepatitis C screening Hepatitis C [facility] Start: 2020 HIV SCREENING HIV SCREENING [facility] Start: 2020 HIV screening HIV Screening [facility] Start: 2020 Screening for Chlamy van trachomatis Chlamydia Screening () [facility] Start: 2018 Meningococcal B Vacc ine (1 of 2 - Standard) Meningococcal B Vaccine (1 of 2 - Standard) [facility] Start: 2018 Meningococcal B Vaccine: Consider Based On Risk (1 of 2 - Patient Seeks Protection) Meningococcal B Vaccine: Consider Based On Risk (1 of 2 - Patient Seeks Protection) [facility] Start: 2018 MENINGOCOCCAL CONJUG ATE (1 - 2-dose series) MENINGOCOCCAL CONJUGATE (1 - 2-dose series) [facility] Start: 2017 HPV Vaccine (1 - 3-d ose series) HPV Vaccine (1 - 3-dose series) [facility] Start: 2016 PEDS TO ADULT TRANSITION ANNUAL ASSESSMENT PEDS TO ADULT TRANSITION ANNUAL ASSESSMENT [facility] Start: 2014 PEDS TO ADULT TRANSITION INITIAL DISCUSSION PEDS TO ADULT TRANSITION INITIAL DISCUSSION [facility] Start: 2013 HPV VACCINE (1 - 2-d ose series) HPV VACCINE (1 - 2-dose series) [facility] Start: 2012 MENINGOCOCCAL B: Consider based on risk (1 of 2 - Risk Bexsero 2-dose series) MENINGOCOCCAL B: Consider based on risk (1 of 2 - Risk Bexsero 2-dose series) [facility] Start: 10-23-2011 HPV Vaccine (1 - 2-d ose series) HPV Vaccine (1 - 2-dose series) [facility] Start: 2009 Urine microalbumin profile DTAP,TDAP,TD (1 - Tdap) [facility] Start: 10-23-2007 COVID-19 VACCINE (1) COVID-19 VACCIN E (1) [facility] Start: 2002 HEPATITIS B (1 of 3 - 3-dose series) HEPATITIS B (1 of 3 - 3-dose series) [facility] Start: 2002 Hepatitis B Vaccine (1 of 3 - 3-dose series) Hepatitis B Vaccine (1 of 3 - 3-dose series) [facility] CHLAMYDIA TRACHOMATI S (GENITO/STI) CHLAMYDIA TRACHOMATIS (GENITO/STI) Lab Routine Screen for STD (sexually transmitted disease) Ordered: 10/28/2023 [facility] Comment on above: Ordered: 10/28/2023 CHLAMYDIA TRACHOMATI S (GENITO/STI) CHLAMYDIA TRACHOMATIS (GENITO/STI) Lab Routine STD exposure Ordered: 09/16/2024 [facility] Comment on above: Ordered: 09/16/2024 CHLAMYDIA TRACHOMATI S (GENITO/STI) CHLAMYDIA TRACHOMATIS (GENITO/STI) Lab Routine STD exposure Ordered: 10/06/2024 [facility] Comment on above: Ordered: 10/06/2024 Comprehensive metabo lic 2000 panel - Serum or Plasma Comprehensive metabolic panel Lab Routine 04/20/2024 12:05 PM EST [facility] [place] Work Phone: Cytology Cervical or vaginal smear or scraping study Pap Smear Pathology and Cytology Routine Well woman exam with routine gynecological exam Ordered: 10/28/2023 [facility] [place] Work Phone: Comment on above: Ordered: 10/28/2023 End: 01-08-2025 EPIL EEG LONG EPIL EEG LONG NEUROLOGY Routine Juvenile myoclonic epilepsy, not intractable, with status epilepticus (HCC) 1 Occurrences starting 01/09/2024 until 01/08/2025 [facility] Work Phone: Comment on above: 1 Occurrences starti ng 01/09/2024 until 01/08/2025 Hepatitis B virus surface Ag [Presence] in Serum or Plasma by Immunoassay Hepatitis B surface antigen Lab Routine Sexually transmitted disease exposure Ordered: 09/16/2024 [facility] Comment on above: Ordered: 09/16/2024 HIV-1/HIV-2 antigen/antibody combination immunoassay HIV-1 and HIV-2 antibodies Lab Routine Sexually transmitted disease exposure Ordered: 09/16/2024 [facility] Work Phone: Comment on above: Ordered: 09/16/2024 HSV nonspecific, IgG HSV nonspec ific, IgG Lab Routine STD exposure Sexually transmitted disease exposure Ordered: 09/16/2024 [facility] Comment on above: Ordered: 09/16/2024 HSV nonspecific, IgM HSV nonspec ific, IgM Lab Routine STD exposure Sexually transmitted disease exposure Ordered: 09/16/2024 [facility] Comment on above: Ordered: 09/16/2024 Lamotrigine measurement [facility] Lipid 1996 panel - Serum or Plasma Lipid panel Lab Routine 04/20/2024 12:05 PM EST [facility] Measurement of zonisamide [facility] Neisseria gonorrhoea e DNA [Presence] in Unspecified specimen by LINK with probe detection Neisseria gonorrhea DNA probe, direct Lab Routine Screen for STD (sexually transmitted disease) Ordered: 10/28/2023 [facility] Comment on above: Ordered: 10/28/2023 Neisseria gonorrhoea e DNA [Presence] in Unspecified specimen by LINK with probe detection Neisseria gonorrhea DNA probe, direct Lab Routine STD exposure Ordered: 09/16/2024 [facility] Comment on above: Ordered: 09/16/2024 Neisseria gonorrhoea e DNA [Presence] in Unspecified specimen by LINK with probe detection Neisseria gonorrhea DNA probe, direct Lab Routine STD exposure Ordered: 10/06/2024 [facility] Comment on above: Ordered: 10/06/2024 Patient Education [facility] Work Phone: Patient referral [facility] Work Phone: End: 03-02-2024 PSG WITH EEG (DOUBLE STUDY) PSG WITH EEG (DOUBLE STUDY) Procedures Routine Juvenile myoclonic epilepsy, not intractable, with status epilepticus (HCC) MECCA (obstructive sleep apnea) 1 Occurrences starting 02/01/2023 until 03/02/2024 [facility] Work Phone: Comment on above: 1 Occurrences starti ng 02/01/2023 until 03/02/2024 SURESWAB(R) ADVANCED VAGINITIS PLUS, TMA SURESWAB(R) ADVANCED VAGINITIS PLUS, TMA Pathology and Cytology Routine Screen for STD (sexually transmitted disease) Ordered: 10/28/2023 [facility] Comment on above: Ordered: 10/28/2023 SURESWAB(R) ADVANCED VAGINITIS PLUS, TMA SURESWAB(R) ADVANCED VAGINITIS PLUS, TMA Pathology and Cytology Routine STD exposure Ordered: 09/16/2024 [facility] Work Phone: Comment on above: Ordered: 09/16/2024 SURESWAB(R) ADVANCED VAGINITIS PLUS, TMA SURESWAB(R) ADVANCED VAGINITIS PLUS, TMA Pathology and Cytology Routine Vaginal discharge Ordered: 10/06/2024 [facility] Work Phone: Comment on above: Ordered: 10/06/2024 [facility] Immunizations Immunization Date Immunization Notes Care Provider [facility] 12-11-2023 influenza virus vacc ine, unspecified formulation Yanet Brito PA-C Work Phone: [facility] 12-10-2022 influenza, injectabl e, quadrivalent, preservative free Nory Aguilar NP Work Phone: [facility] 12-10-2022 influenza virus vacc ine, unspecified formulation Carla Chowdary MD Work Phone: [facility] 07-20-2022 hepatitis B vaccine, adult dosage Nory Aguilar NP Work Phone: [facility] 06-19-2022 hepatitis B vaccine, pediatric or pediatric/adolescent dosage Nory Aguilar NP Work Phone: [facility] 09-30-2020 meningococcal oligosaccharide (groups A, C, Y and W-135) diphtheria toxoid conjugate vaccine (MCV4O) Nory Aguilar NP Work Phone: [facility] 06-14-2015 meningococcal ACWY vaccine, unspecified formulation Nory Aguilar NP Work Phone: [facility] 05-27-2015 tetanus toxoid, redu saroj diphtheria toxoid, and acellular pertussis vaccine, adsorbed Nory Aguilar NP Work Phone: [facility] 06-10-2007 diphtheria, tetanus toxoids and acellular pertussis vaccine Nory Brandon [employer] Work Phone: [facility] 06-10-2007 measles, mumps and r ubella virus vaccine Nory Brandon [employer] Work Phone: [facility] 06-10-2007 poliovirus vaccine, inactivated Nory Aguilar [employer] Work Phone: [facility] 01-24-2004 diphtheria, tetanus toxoids and acellular pertussis vaccine Nory Brandon [employer] Work Phone: [facility] 11-18-2003 haemophilus influenz ae type b vaccine, PRP-T conjugate Nory Aguilar [employer] Work Phone: [facility] 11-18-2003 measles, mumps and r ubella virus vaccine Nory Brandon [employer] WORK[employer] Work Phone: [facility] 11-18-2003 pneumococcal conjuga te vaccine, 7 valent Nory Aguilar [employer] Work Phone: [facility] 06-11-2003 diphtheria, tetanus toxoids and acellular pertussis vaccine, unspecified formulation Nory Aguilar [employer] Work Phone: [facility] 06-11-2003 haemophilus influenz ae type b conjugate and Hepatitis B vaccine Nory Aguilar [employer] Work Phone: [facility] 06-11-2003 poliovirus vaccine, inactivated Nory Aguilar [employer] Work Phone: [facility] 03-19-2003 diphtheria, tetanus toxoids and acellular pertussis vaccine, unspecified formulation Nory Aguilar [employer] WORK[employer] Work Phone: [facility] 03-19-2003 haemophilus influenz ae type b vaccine, conjugate unspecified formulation Nory Aguilar [employer] WORK[employer] Work Phone: [facility] 03-19-2003 poliovirus vaccine, inactivated Nory Aguilar [employer] WORK[employer] Work Phone: [facility] 2002 DTaP-hepatitis B and poliovirus vaccine Nory Aguilar [employer] WORK[employer] Work Phone: [facility] 2002 haemophilus influenz ae type b vaccine, PRP-T conjugate Nory Aguilar NP Work Phone: [facility] 2002 pneumococcal conjuga te vaccine, 7 valent Nory Aguilar [employer] Work Phone: [facility] 2002 hepatitis B vaccine, pediatric or pediatric/adolescent dosage Nory Aguilar [employer] Work Phone: [facility] Payers Date Payer Category Payer Self-pay 2021 [facility] [id number] 2021 Unknown [id number] 2020 [facility] Health [facility] [id number] 2020-Present [phone] [address] [place] [address] O [id number] 2019 Unknown [id number] 2019 Private Health Insurance [id number] 2019 Unknown [id number] 2019 Private Health Insurance [id number] 2002 Unknown [id number] 2.16.840.1.396675.3.579.2 .1259 2002 Unknown [id number] 2.16.840.1.836912.3.579.2 .1259 2002 Unknown [id number] 2.16.840.1.074036.3.579.2 .196 2002 Unknown [id number] 2.16.840.1.445794.3.579.2 .196 2002 Unknown [id number] 2.16.840.1.484408.3.579.2 .1259 2002 Unknown [id number] 2.16.840.1.648349.3.579.2 .1259 2002 Unknown [id number] 2.16.840.1.030436.3.579.2 .9 2002 Unknown [id number] 2.16.840.1.059205.3.579.2 .1259 2002 Unknown [id number] 2.16.840.1.600437.3.579.2 .9 2002 Unknown [id number] 2.16840.1.387139.3.579.2 .9 2002 Unknown [id number] 2.840.1.193636.3.579.2 .9 2002 Unknown [id number] 2.16840.1.097480.3.579.2 .1259 Unknown [id number] 2.16840.1.825653.3.579.2 .531 Unknown [id number] 2.16840.1.405850.3.579.2 .531 Unknown [id number] 2.16840.1.865344.3.579.2 .531 Unknown [id number] 2.16840.1.723436.3.579.2 .531 Unknown [id number] 2.16840.1.317768.3.579.2 .531 Unknown [id number] 2.16840.1.968990.3.579.2 .531 Unknown [id number] 2.840.1.180496.3.579.2 .531 Social History Date Type Detail Facility Tobacco smoking status TXIS Tobacco smoking consumption unknown [facility] Start: 2002 Sex Assigned At Female C [facility] Start: 06-06-2021 End: 03-16-2024 Tobacco smoking status NHIS Never smoked tobacco [facility] Start: 06-06-2021 End: 01-25-2023 Tobacco use and exposure Smokeless tobacco non-user [facility] Start: 05-27-2021 End: 06-06-2021 Exposure to SARS-CoV-2 (event) Not sure [facility] Start: 06-06-2021 End: 04-13-2024 History of Social function [facility] Start: 06-06-2021 End: 04-13-2024 Tobacco use panel [facility] Adult Depression Screening Assessment 0 [facility] Start: 03-10-2021 Gender identity Identifies as female gender (finding) [facility] Start: 03-10-2021 Sexual orientation Heterosexual (fin ding) [facility] Start: 10-28-2023 End: 06-18-2024 Alcoholic beverage intake Current drinker of alcohol (finding) [facility] Start: 01-25-2023 Alcohol Comment caffeine intak e: 2 sodas daily [facility] Start: 2002 Sex assigned at Not on file [facility] Start: 03-04-2024 End: 05-19-2024 Sex Female (finding) [facility] How often to you hav e a drink containing alcohol? 2-4 times a month [facility] How many standard drinks containing alcohol do you have on a typical day? 3 or 4 [facility] How often do you hav e 6 or more drinks on 1 occasion? Monthly [facility] NEGATED: Highlighted rowStart: NINF History of tobacco use Passive smoker [facility] NEGATED: Highlighted row [facility] Clinical Notes 05-30-2021 to 10-13-2024 CESIA Esquivel - 10/13/2024 8:30 AM EDTPatient CESIA Gregory - 10/06/2024 9:50 AM EDTAndreas Samson NP - 09/16/2024 9:50 AM EDT Note Date & Type Note Facility 10-13-2024 History of Presen t illness Narrative Reason for Appointment: Patient ID: Quentin Bird is a 23 y.o. female who presents for Genital Sores Patient presents today for Acute Visit. MEDICATIONS Current Outpatient Medications Medication Instructions azithromycin (Zithromax) 500 MG tablet Day 1: Take 2 tablets PO onetime dose; Day 2,3,4: Take 1 tablet daily clobetasol (Temovate) 0.05 % cream 1 application , Topical, Daily cyanocobalamin (VITAMIN B-12) 1,000 mcg, Daily folic acid (Folvite) 1 MG tablet HYDROcodone-acetaminophen ([place]) 5-325 MG tablet 1 tablet, Oral, Every 6 hours PRN lamoTRIgine (LAMICTAL) 100 mg, 2 times daily [...] (VALTREX) 1,000 mg, Oral, 2 times daily valACYclovir (VALTREX) 500 mg, Oral, Daily venlafaxine XR (EFFEXOR XR) 37.5 mg, Oral, [...] Negative. Endocrine: Negative. Allergic/Immunologic: Negative. OBJECTIVE Objective: OBGyn Exam Vitals: Estimated body mass index is 27.3 kg/m as calculated from the following: Height as of 04/13/24: 5' 1 . Weight as of this encounter: 144 lb 8 oz. BP: 102/60 No LMP recorded. ASSESSMENT & PLAN ICD-10-CM 1. Menorrhagia with irregular cycle N92.1 norethindrone-ethinyl estradiol-iron (Lo Loestrin Fe) 1 MG-10 MCG / 10 MCG tablet 2. Insulin resistance E88.819 metFORMIN XR (Glucophage-XR) 500 MG 24 hr tablet 3. Herpes genitalis in women A60.09 valACYclovir (Valtrex) 500 MG tablet Patient presents for follow up herpes simplex outbreak, patient took valtrex and feeling much better. Patient given refill of valtrex for future outbreaks. Pvu and agrees with plan of care Documented by CESIA Esquivel on behalf of: CESIA Esquivel documented in this encounter [facility] 10-08-2024 Instructions CESIA Esquivel - 10/08/2024 2:09 PM EDT Patient called for pain medication due to current outbreak documented in this encounter [facility] 10-06-2024 History of Presen t illness Narrative Images from the original note [...] of: CESIA Esquivel documented in this encounter [facility] 09-16-2024 History of Presen t illness Narrative Reason for Appointment: Patient ID: [...] nursing note reviewed. Exam conducted with a bag liner present. Vitals: Estimated body mass index is [...] Andreas Samson NP documented in this encounter [facility] 09-07-2024 Note Patient Education Ma terials Name: Quentin Bird Current Date: 09/07/2024 14:14:47 [place] : 2000 The following sheet(s) are the Patient Education Leaflets for [facility] 08-27-2024 Evaluation note Diagnosis Onset Date Resolution RAHEEL (juvenile myoclonic epilepsy) acute August 27 12:29pm [facility] Work Phone: 1(190) 828-699307-09-2025 History of Present illness Narrative* Andreas Samson NP - 08/26/2024 1:50 PM EDT Reason for Appointment: Patient ID: Quentin Bird [...] nursing note reviewed. Exam conducted with a bag liner present. Vitals: Estimated body mass index is [...] Would like to discuss heavy cycles and treatment.Given that she is Lamictal she is aware that progesterones are our safest option. She was given theoption of IUD, OCP's and depo and prefers OCP. She also reports continue vaginal discharge despite prior treatment with Nuvessa. Patient with recurrent bacterial vaginosis will start Flagyl and discuss Boric Acid if no improvement. Documented by Andreas Samson NP on behalf of: Jonathan Elizabeth DO [id number] Telephone encounter Note* Telephone Encounter - Sammi Escalante APRN.CNP - 08/18/2024 1:17 PM EDT The following approved medication requests have been transmitted electronically. Requested Prescriptions Signed Prescriptions Disp Refills zonisamide (ZONEGRAN) 100 mg capsule 270 capsule 0 Sig: TAKE 3 CAPSULES BY MOUTH AT BEDTIME Authorizing Provider: SAMMI ESCALANTE APRN.CNP [facility]07-01-2025 Miscellaneous Notes* Telephone Encounter - Sammi Escalante APRN.CNP - 08/18/2024 1:17 PM EDT The following approved medication requests have been transmitted electronically. Requested Prescriptions Signed Prescriptions Disp Refills zonisamide (ZONEGRAN) 100 mg capsule 270 capsule 0 Sig: TAKE 3 CAPSULES BY MOUTH AT BEDTIME Authorizing Provider: FREESAMMI Lloyd APRN.CNP * Telephone Encounter - Deanna Garcia - 08/18/2024 1:04 PM EDT Prescription Refill: Requested by: pharmacy Please E-Scribe Caller Contact Number: electronic Pharmacy Name: [facility] Number: [phone] Generic/ brand: Generic 30 or 90 day supply requested: 90 Last appointment: 01/09/24 Next Appointment: none Patient of Dr. Abraham Bird [id number] [address] [facility] [id number] [facility] Telephone encounter Note * Telephone Encounter - Deanna Garcia - 08/18/2024 1:04 PM EDT Prescription Refill: Requested by: pharmacy Please E-Scribe Caller Contact Number: electronic [facility]acy Name: [facility] Number: [phone] Generic/ brand: Generic 30 or 90 day supply requested: 90 Last appointment: 01/09/24 Next Appointment: none Patient of Dr. Abraham Bird [id number] [address] [facility] [id number] [facility]05-01-2025 History of Present illness Narrative* Gabi Mcclure DO - 06/18/2024 3:30 PM EDT Images from the original note were not included. Chief Complaint: seizures Subjective Quentin Bird, 23 y.o., female Patient presents today for a neurologic consult for seizure disorder. Patient states she has been having seizures since 2017. She is on Zonegran and Lamictal for seizures. She has been on Zonegran since December of 2023 and the Lamictal February of 2023. She was previously on Vimpat and Lamictal. She uses Midazolam as an abortive medication. Her last seizure was February of this year. She is unaware of this event. 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 She was told this seizure lasted about two minutes. She reports all of her previous seizureshave been 2 minutes or longer. She has had a total of four seizures. She is unaware during these ortiz nts. She reports body shaking and tongue bite one time. She denies loss of bladder or bowel. She does report vomiting one time. 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 LUE Strength deltoid , biceps , triceps , wrist extensors , wrist flexor , wood science professor strength 5/5. RLE Strength illopsoas, quadriceps, tibialis [...] reflex 2+ . Aguilar's sign negative. Coordination: [id number] testing and rapid alternating movements are normal Gait: Normal Review and summary of old records: CT of the brain on 09/10/2020: No acute intracranial process Review of epilepsy notes from [facility] in December of 2023 note the patient has history of Avel, anxiety and depression and they also note that the patient's seizures began around the age of19 with a generalized tonic-clonic event after the patient had fallen asleep in the chair and turned blue. The patient was admitted at that time and had amnestic features to the event. No aura. She was postictal thereafter for very hours as noted. She was started on medication around October 2023of lamotrigine. She also was noted to have tachycardia. 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 The patient has been seen [facility]. She was initially placed on Vimpat. Patient [...] as previously noted to the patient from [facility] SEIZURE PRECUATIONS to follow for 6 months [...] should be thin, down comforters may be toosoft. -Keep the bed as low to the [...] or via a video recorder. This will helpwhen you meet with your doctor. Pt has been fully educated on their diagnosis, lab results, treatment options, follow up plan, return instructions, and discussion of mental health issues documented in this encounterSaint John's Saint Francis [id number] Telephone encounter Note* Telephone Encounter - Yanet Brito PA-C - 05/22/2024 12:28 PM EDT The following approved medication requests have been transmitted electronically. Requested Prescriptions Signed Prescriptions Disp Refills zonisamide (ZONEGRAN) 100 mg capsule 270 capsule 0 Sig: Take 3 capsules by mouth daily at bedtime. Authorizing Provider: YANET BRITO PA-C [facility]04-04-2025 Miscellaneous Notes* Telephone Encounter - Yanet Brito PA-C - 05/22/2024 12:28 PM EDT The following approved medication requests have been transmitted electronically. Requested Prescriptions Signed Prescriptions Disp Refills zonisamide (ZONEGRAN) 100 mg capsule 270 capsule 0 Sig: Take 3 capsules by mouth daily at bedtime. Authorizing Provider: YANET BRITO PA-C * Telephone Encounter - Deanna Garcia - 05/22/2024 11:08 AM EDT Prescription Refill: Requested by: patient Please E-Scribe Caller Contact Number: [facility] Number: [phone] Generic/ brand: Generic 30 or 90 day supply requested: 90 Last appointment: 01/09/24 Next Appointment: none Patient of Dr. Abraham Bird [id number] [address] [facility] [address] documented in this encounterC[facility]04-04-2025 Telephone encounter Note * Telephone Encounter - Deanna Garcia - 05/22/2024 11:08 AM EDT Prescription Refill: Requested by: patient Please E-Scribe Caller Contact Number: [facility] Number: [phone] Generic/ brand: Generic 30 or 90 day supply requested: 90 Last appointment: 01/09/24 Next Appointment: none Patient of Dr. 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 Recently neurologist stopped Vimpat and started Z onisamide. Also taking Lamictal and Folic Acid. She [...] She does admit aura, would black out 10- 15 min prior to havign seizure. Cannot remember [...] cosmotology. Living with her sister and brother jaden. Currently sexually active but denies wanting control [...] Marge Lung cancer Paternal Grandfather Ashutosh Marge Social History Socioeconomic History Marital status: Unmarried [...] Insecurity: No Food Insecurity (01/19/2023) [facility] Within the past 12 months [...] disease and discussed importance of routine exercise andhealthy diet. Recommended routine dental/eye exams. Labs ordered and printed for patient, plans to do at [facility]. Discussed routine screenings and patient is UTD. [...] given to patient to get done at [facility]. Screening for deficiency anemia - CBC; Future [...] (around 04/13/2025) for wellness. documented in this encounterSaint John's Saint Francis HospitalYhvecoycsp16-12-2673 Telephone encounter Note* Telephone Encounter - Sammi Escalante APRN.CNP - 03/05/2024 11:32 AM EST Unable to see if any levels were [...] 150 mg twice daily. Sammi Escalante APRN.CNP [facility]01-16-2025 Miscellaneous Notes* Telephone Encounter - Sammi Escalante APRN.CNP - 03/05/2024 11:32 AM EST Unable to see if any levels were [...] 150 mg twice daily. Sammi Escalante APRN.CNP * Telephone Encounter - Asuncion Garcia RN - 03/05/2024 11:23 AM EST Seizure Call Last Visit: 01/09/2024 ANDRES with [...] review. Asuncion Garcia RN documented in this encounterCrystal Clinic [facility] Center01-16-2025 Telephone encounter Note * Telephone Encounter - Asuncion Garcia RN - 03/05/2024 11:23 AM EST Seizure Call Last Visit: 01/09/2024 ANDRES with [...] yes Routed for review. Asuncion Garcia RN [facility]01-15-2025 [facility]iology [facility] [place] [address] [place] [address] CT Scan Report Signed Patient: Quentin Bird MR#: [id number] 46 : 2000 Acct:[id number] Age/Sex: 23 / F ADM Date: 5 Loc: ER Room: Type: [facility] ER Attending Dr: Copies to: Jimmy Donis [...] following dose reduction techniques: Automated exposure control, adjustmentof the mA and/or kV accordingto patient size, [...] Tomas Graham M.D.03/04/2024 10:41 AM Dictation Location: [place] [address] Transcribed By: SAAD 03/04/24 1041 Dictated By: Tomas Graham MD 03/04/24 1039 Signed By: 03/04/24 1041 [facility] Work Phone: [phone] Telephone encounter Note* Telephone Encounter - Sammi Escalante APRN.CNP - 03/04/2024 9:16 AM EST The following approved medication requests have been [...] with 25 mg tablet. Sammi Escalante APRN.CNP [facility]01-15-2025 Miscellaneous Notes* Telephone Encounter - Sammi Escalante APRN.CNP - 03/04/2024 9:16 AM EST The following approved medication requests have been [...] Take with 25 mg tablet. Sammi Escalante APRN.GUN SYNCHRONIZER * Telephone Encounter - Asuncion Garcia RN - 03/04/2024 8:56 AM EST Pt is requesting refill for LTG 125/125. MC message routed for review. Asuncion Garcia RN documented in this encounterCrystal Clinic [facility] Center01-15-2025 Telephone encounter Note * Telephone Encounter - Asuncion Garcia RN - 03/04/2024 8:56 AM EST Pt is requesting refill for LTG 125/125. MC message routed for review. Asuncion Garcia RN [facility]12-26-2024 Telephone encounter Note* Telephone Encounter - Joon Melton RN - 02/13/2024 3:55 PM EST I spoke with the pharmacist at [facility], titration schedule reviewed. Joon Melton RN [facility]12-26-2024 Miscellaneous Notes* Telephone Encounter - Joon Vargas RN - 02/13/2024 3:55 PM EST I spoke with the pharmacist at [facility], titration schedule reviewed. Joon Melton RN * Telephone Encounter - Coco Adm RomeroDeanna - 02/13/2024 2:18 PM EST Medication Concern Person Calling [facility] Name of medication Vimpat Concern with medication Pharmacy needs clarification on SIG. Patient of Dr. De Leon documented in this encounterCrystal Clinic [facility] Center12-26-2024 Telephone encounter Note * Telephone Encounter - Deanna Garcia - 02/13/2024 2:18 PM EST Medication Concern Person Calling [facility] Name of medication Vimpat Concern with medication Pharmacy needs clarification on SIG. Patient of Dr. De Leon [facility]12-24-2024 Telephone encounter Note* Telephone Encounter - Mishel Carias RN - 02/11/2024 4:23 PM EST Spoke with [facility] They have the RX and sending to the pharmacist to review since a controled medication and made it ahigh priority Mishel Carias RN [facility]12-24-2024 Miscellaneous Notes* Telephone Encounter - Mishel Carias RN - 02/11/2024 4:23 PM EST [facility] and sending to the pharmacist to review since a controled medication and made it ahigh priority Mishel Carias RN documented in this encounterCrystal Clinic Orth[facility] Center12-23-2024 Telephone encounter Note * Telephone Encounter - Roselyn Mccullough APRN.CNP - 02/10/2024 12:43 PM EST The following approved medication requests have been transmitted electronically. Requested Prescriptions Signed Prescriptions Disp Refills lacosamide (VIMPAT) 50 mg tab 168 tablet 0 Sig: Wk 1: 150/200 Wk 2: 150/150 Wk 3: 100/150 Wk 4: 100/100 Wk 5: 50/100 WK 6: 50/50 Wk 7: 50 at bedtime Wk 8: STOP LCM Authorizing Provider: ROSELYN MCCULLOUGH APRN.CNP [facility]12-23-2024 Miscellaneous Notes* Telephone Encounter - Roselyn Mccullough APRN.CNP - 02/10/2024 12:43 PM EST The following approved medication requests have been transmitted electronically. Requested Prescriptions Signed Prescriptions Disp Refills lacosamide (VIMPAT) 50 mg tab 168 tablet 0 Sig: Wk 1: 150/200 Wk 2: 150/150 Wk 3: 100/150 Wk 4: 100/100 Wk 5: 50/100 WK 6: 50/50 Wk 7: 50 at bedtime Wk 8: STOP LCM Authorizing Provider: ROSELYN MCCULLOUGH APRN.CNP * Telephone Encounter - Asuncion Garcia RN - 02/10/2024 10:25 AM EST Images from the original note were not included. Prescription for LCM 50mg tablet. SONAM Hearn's response: Routed for new prescription. Asuncion Garcia RN * Telephone Encounter - Nahomy Frye - 02/10/2024 9:45 AM EST Medication Concern Person Calling: Fax from [facility] Phone #: [phone] / Name of medication: Lacosamide/Vimpat - 50MG Concern with medication: Clarification request for dosage instructions Directions are missing on the original prescription dated 02/07/[address] De Leon Forwarded to nurse. documented in this encounterCrystal Clinic [facility] Center12-23-2024 Telephone encounter Note * Telephone Encounter - Asuncion Garcia RN - 02/10/2024 10:25 AM EST Images from the original note were not included. Prescription for LCM 50mg tablet. [facility]'s response: Routed for new prescription. Asuncion Garcia RN [facility]12-23-2024 Telephone encounter Note* Telephone Encounter - Nahomy Frye - 02/10/2024 9:45 AM EST Medication Concern Person Calling: Fax from [facility] Phone #: [phone] / Name of medication: Lacosamide/Vimpat - 50MG Concern with medication: Clarification request for dosage instructions Directions are missing on the original prescription dated 02/07/[address] De Leon Forwarded to nurse. [facility]12-20-2024 Telephone encounter Note* Telephone Encounter - Hosea Ku PA-C - 02/07/2024 4:35 PM EST The following approved medication requests have been transmitted electronically. Requested Prescriptions Signed Prescriptions Disp Refills lacosamide (VIMPAT) 50 mg tab 168 tablet 0 Sig: Please follow wean schedule provided via [facility] Authorizing Provider: HOSEA KU PA-C [facility]12-20-2024 Miscellaneous Notes* Telephone Encounter - Hosea Ku PA-C - 02/07/2024 4:35 PM EST The following approved medication requests have been transmitted electronically. Requested Prescriptions Signed Prescriptions Disp Refills lacosamide (VIMPAT) 50 mg tab 168 tablet 0 Sig: Please follow wean schedule provided via [facility] Authorizing Provider: HOSEA KU PA-C * Telephone Encounter - Hosea Ku PA-C - 02/07/2024 11:56 AM EST RX corrected The following approved medication requests have been transmitted electronically. Requested Prescriptions Signed Prescriptions Disp Refills lacosamide (VIMPAT) 50 mg tab 168 tablet 0 Sig: Please follow wean schedule provided via [facility] Authorizing Provider: HOSEA KU PA-C * Telephone Encounter - Asuncion Garcia RN - 02/07/2024 11:43 AM EST Prescription for LCM 50mg tablets is unclear. Pharmacy asking to verify instructions and provide the duration (day supply) that 168 tablets are expected to last the pt. Routed. Asuncion Garcia RN * Telephone Encounter - Ermelinda Dangelo - 02/07/2024 10:31 AM EST Form received: From (agency / facility / parent): [facility] manager personal (if given): Phone #: [phone] Fax # : [phone] Email: Information requested: Physicians statement Patient of Dr. De Leon Forwarded to Nurse documented in this encounterCrystal Clinic [facility] Center12-20-2024 Telephone encounter Note * Telephone Encounter - Asuncion Garcia RN - 02/07/2024 4:30 PM EST Lab order form signed by Hosea Ku via [email or web address]. Lab order form sent to [facility] [email or web address] (fax #: [phone]) via [employer]. Confirmation received. Asuncion Garcia RN [facility]12-20-2024 Miscellaneous Notes* Telephone Encounter - Asuncion Garcia RN - 02/07/2024 4:30 PM EST Lab order form signed by Hosea Ku via [email or web address]. Lab order form sent to [facility] [email or web address] (fax #: [phone]) via [employer]. Confirmation received. Asuncion Garcia RN * Telephone Encounter - Asuncion Garcia RN - 02/07/2024 11:51 AM EST Lab order form sent to Hosea Ku to review and sign via [email or web address]. Asuncion Garcia RN * Telephone Encounter - Hosea Ku PA-C - 02/06/2024 8:28 AM EST Order for ZNS level placed Hosea Ku PA-C' * Telephone Encounter - Hosea Ku PA-C - 02/06/2024 8:10 AM EST The following approved medication requests have been transmitted electronically. Requested Prescriptions Signed Prescriptions Disp Refills zonisamide (ZONEGRAN) 100 mg capsule 270 capsule 1 Sig: Take 3 capsules by mouth daily at bedtime. lacosamide (VIMPAT) 50 mg tab 168 tablet 0 Sig: Please follow titration schedule to wean Lacosamide provided in MyChart Hosea Ku PA-C * Telephone Encounter - Hosea Ku PA-C - 02/05/2024 1:57 PM EST MC message sent to patient. Waiting to confirm pharmacy before I send RX Hosea Ku PA-C * Telephone Encounter - Asuncion Garcia RN - 02/05/2024 10:58 AM EST Response from Hosea Ku: Can you please verify what dose of LTG she is currently taking? Asuncion Garcia RN * Telephone Encounter - Asuncion Garcia RN - 02/04/2024 11:27 AM EST ANDRES on 01/09/[address] De Leon: 01/09/24: Had breakthrough seizure. Was only on 25 mg twice per day lamotrigine. Will continue titration. If too much side effect at full dose in combination with lacosamide, or continued seizures atfull dose, will consider change in lacosamide to another medicine (possible zonisamide). Discussed factors which may exacerbate seizures. Discussed possible future options. PLAN: -Continue lacosamide 200 mg BID -Continue titration to lamotrigine 125 mg BID -If too much side effect from dual sodium agents at full dose, or continues seizures, will considerchange in lacosamide to zonisamide -If insomnia with increased lamotrigine, could consider extended release formulation -Seizure precautions, no driving until at least 6 months seizure free -EEG long -Possible future EMU evaluation -Patient deferred referral back to sleep center -Follow up 3 months, sooner if needed message routed for review. Asuncion Garcia RN documented in this encounterCrystal Clinic [facility] Center12-20-2024 Telephone encounter Note * Telephone Encounter - Hosea Ku PA-C - 02/07/2024 3:24 PM EST The following approved medication requests have been [...] prescription at the pharmacy Hosea Ku PA-C [facility]12-20-2024 Miscellaneous Notes* Telephone Encounter - Hosea Ku PA-C - 02/07/2024 3:24 PM EST The following approved medication requests have been [...] prescription at the pharmacy Hosea Ku PA-C * Telephone Encounter - Sigrid Casarez - 02/07/2024 3:15 PM EST Prescription Refill: Requested by: patient Please Call in Caller Contact Number: [phone] (home) [facility] Pharmacy Number: [id number] Generic/ brand: generic 30 or 90 day supply requested: 90 Last appointment: Next Appointment: none Patient of Dr. abraham Bird [id number] [address] [facility] [address] New pharmacy above documented in this encounterCrystal Clinic [facility] Center12-20-2024 Telephone encounter Note * Telephone Encounter - Sigrid Casarez - 02/07/2024 3:15 PM EST Prescription Refill: Requested by: patient Please Call in Caller Contact Number: [phone] (home) [facility] Pharmacy Number: [id number] Generic/ brand: generic 30 or 90 day supply requested: 90 Last appointment: Next Appointment: none Patient of Dr. abraham Bird [id number] [address] [facility] [address] New pharmacy above [facility]12-20-2024 Telephone encounter Note* Telephone Encounter - Hosea Ku PA-C - 02/07/2024 11:56 AM EST RX corrected The following approved medication requests have been transmitted electronically. Requested Prescriptions Signed Prescriptions Disp Refills lacosamide (VIMPAT) 50 mg tab 168 tablet 0 Sig: Please follow wean [facility] Authorizing Provider: HOSEA KU PA-C [facility]12-20-2024 Telephone encounter Note* Telephone Encounter - Asuncion Garcia RN - 02/07/2024 11:51 AM EST Lab order form sent to Hosea Ku to review and sign via [email or web address]. Asuncion Garcia RN [facility]12-20-2024 Telephone encounter Note* Telephone Encounter - Asuncion Garcia RN - 02/07/2024 11:43 AM EST Prescription for LCM 50mg tablets is unclear. Pharmacy asking to verify instructions and provide the duration (day supply) that 168 tablets are expected to last the pt. Routed. Asuncion Garcia RN [facility]12-20-2024 Telephone encounter Note* Telephone Encounter - Ermelinda Dangelo - 02/07/2024 10:31 AM EST Form received: From (agency / facility / parent): [facility] manager personal (if given): Phone #: [phone] Fax # : [phone] Email: Information requested: Physicians statement Patient of Dr. De Leon Forwarded to Nurse [facility]12-19-2024 Telephone encounter Note* Telephone Encounter - Hosea Ku PA-C - 02/06/2024 8:28 AM EST Order for ZNS level placed Hosea Ku PA-C' [facility]12-19-2024 Telephone encounter Note* Telephone Encounter - Hosea Ku PA-C - 02/06/2024 8:10 AM EST The following approved medication requests have been transmitted electronically. Requested Prescriptions Signed Prescriptions Disp Refills zonisamide (ZONEGRAN) 100 mg capsule 270 capsule 1 Sig: Take 3 capsules by mouth daily at bedtime. lacosamide (VIMPAT) 50 mg tab 168 tablet 0 Sig: Please follow titration schedule to wean Lacosamide provided in MyChart Hosea Ku PA-C [facility]12-18-2024 Telephone encounter Note* Telephone Encounter - Hosea Ku PA-C - 02/05/2024 1:57 PM EST MC message sent to patient. Waiting to confirm pharmacy before I send RX Hosea Ku PA-C [facility]12-18-2024 Telephone encounter Note* Telephone Encounter - Asuncion Garcia RN - 02/05/2024 10:58 AM EST Response from Hosea Kings: Can you please verify what dose of LTG she is currently taking? Asuncion Garcia RN [facility]12-17-2024 Telephone encounter Note* Telephone Encounter - Asuncion Garcia RN - 02/04/2024 11:27 AM EST ANDRES on 01/09/[address] De Leon: 01/09/24: Had breakthrough seizure. Was only on 25 mg twice per day lamotrigine. Will continue titration. If too much side effect at full dose in combination with lacosamide, or continued seizures atfull dose, will consider change in lacosamide to another medicine (possible zonisamide). Discussed factors which may exacerbate seizures. Discussed possible future options. PLAN: -Continue lacosamide 200 mg BID -Continue titration to lamotrigine 125 mg BID -If too much side effect from dual sodium agents at full dose, or continues seizures, will considerchange in lacosamide to zonisamide -If insomnia with increased lamotrigine, could consider extended release formulation -Seizure precautions, no driving until at least 6 months seizure free -EEG long -Possible future EMU evaluation -Patient deferred referral back to sleep center -Follow up 3 months, sooner if needed message routed for review. Asuncion Garcia RN [facility]12-13-2024 Telephone encounter Note* Telephone Encounter - Dewayne Osorio PA-C - 01/31/2024 2:23 PM EST The following approved medication requests have been transmitted electronically. Requested Prescriptions Signed Prescriptions Disp Refills lacosamide (VIMPAT) 200 mg 180 tablet 1 Sig: Take 1 tablet by mouth two times a day for 180 days. Take an extra pill of Vimpat as needed ifmyoclonus occurs. Authorizing Provider: DEWAYNE OSORIO PA-C [facility]12-13-2024 Miscellaneous Notes* Telephone Encounter - Dewayne Osoiro PA-C - 01/31/2024 2:23 PM EST The following approved medication requests have been transmitted electronically. Requested Prescriptions Signed Prescriptions Disp Refills lacosamide (VIMPAT) 200 mg 180 tablet 1 Sig: Take 1 tablet by mouth two times a day for 180 days. Take an extra pill of Vimpat as needed ifmyoclonus occurs. Authorizing Provider: DEWAYNE OSORIO PA-C * Telephone Encounter - Aislinn Lee - 01/31/2024 2:17 PM EST Prescription Refill: Requested by: patient Please E-Scribe Caller Contact Number: my chart Pharmacy Name: [facility] Pharmacy Number: [phone] Generic/ brand: generic 30 or 90 day supply requested: 90 Last appointment: 01/09/24 Next Appointment: none Patient of Dr. De Leon documented in this encounterCrystal Clinic [facility] Center12-13-2024 Telephone encounter Note * Telephone Encounter - Aislinn Lee - 01/31/2024 2:17 PM EST Prescription Refill: Requested by: patient Please E-Scribe Caller Contact Number: my chart [facility] Pharmacy Number: [id number] Generic/ brand: generic 30 or 90 day supply requested: 90 Last appointment: 01/09/24 Next Appointment: none Patient of Dr. De Leon [facility]11-22-2024 Miscellaneous Notes* Telephone Encounter - Asuncion Garcia RN - 01/10/2024 2:24 PM EST [facility]: [phone][facility] Lab order form sent to [facility] [email or web address] (fax #: [phone]) via [employer]. Confirmation received. Asuncion Garcia RN * Telephone Encounter - Asuncion Garcia RN - 01/10/2024 11:28 AM EST Lab order form signed by Mario Rojas via [email or web address]. MC message sent to pt, in this encounter, to confirm laboratory. Asuncion Garcia RN * Telephone Encounter - Asuncion Garcia RN - 01/09/2024 4:32 PM EST Lab order form sent to Mario Rojas to review and sign via [email or web address]. Asuncion Garcia RN * Telephone Encounter - Mario Rojas PA-C - 01/09/2024 4:29 PM EST Lab orders placed. Mario Rojas PA-C * Telephone Encounter - Asuncion Garcia RN - 01/09/2024 4:20 PM EST Images from the original note were not included. Daisy De Leon, DO Asuncion Garcia RN Can we please send an order for trough lamotrigine level, CBC, CMP to [facility]? To be drawn after lamotrigine titration complete. Routed for lab orders. Asuncion Garcia RN documented in this encounterCrystal Clinic [facility] Center11-22-2024 Telephone encounter Note * Telephone Encounter - Asuncion Garcia RN - 01/10/2024 2:24 PM EST Pt will be going to [facility] (fax #: [phone]). Lab order form sent to [facility] (fax #: [phone]) via [employer]. Confirmation received. Asuncion Garcia RN [facility]11-22-2024 Telephone encounter Note* Telephone Encounter - Asuncion Garcia RN - 01/10/2024 11:28 AM EST Lab order form signed by Mario Rojas via [email or web address]. [employer] message sent to pt, in this encounter, to confirm laboratory. Asuncion Garcia RN [facility]11-21-2024 Telephone encounter Note* Telephone Encounter - Asuncion Garcia RN - 01/09/2024 4:32 PM EST Lab order form sent to Mario Rojas to review and sign via [email or web address]. Asuncion Garcia RN [facility]11-21-2024 Telephone encounter Note* Telephone Encounter - Mario Rojas PA-C - 01/09/2024 4:29 PM EST Lab orders placed. Mario Rojas PA-C [facility]11-21-2024 Telephone encounter Note* Telephone Encounter - Asuncion Garcia RN - 01/09/2024 4:20 PM EST Images from the original note were not included. Daisy De Leon DO Beitler, Nina, RN Can we please send an order for trough lamotrigine level, CBC, CMP to [facility]? To be drawn after lamotrigine titration complete. Routed for lab orders. Asuncion Garcia RN [facility]11-21-2024 Instructions* Patient Instructions* Daisy De Leon DO - 01/09/2024 3:12 PM EST Empowering [...] should be thin, down comforters may be toosoft. -Keep the bed as low to the [...] or via a video recorder. This will helpwhen you meet with your doctor. documented in this encounterCrystal Clinic [facility] Center11-21-2024 NoteHNO ID: [id number] Author: DAISY DE LEON DO Service: ? Author Type: Physician Type: Progress Notes Filed: 01/09/2024 15:45 Note Text: [facility] Patient Name: Quentin Bird Date of : 2000 ESTABLISHED EPILEPSY CLINIC NOTE 01/09/2024 2:40 PM Reason for Visit: Established Patient and Follow Up Clinical Summary: Ms. Bird is a 23 year old female seen in [facility] Epilepsy Center. Classification Summary HISTORY OF PRESENT [...] have seizure. 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 Currently holding [...] Interval: Hx of generalized (more content not included)...[facility] 01-09-2024 History of Present illness Narrative* Daisy De Leon DO - 01/09/2024 2:35 PM EST [facility] Patient Name: Quentin Bird Date of : 2000 ESTABLISHED EPILEPSY CLINIC NOTE 01/09/2024 2:40 PM Reason for Visit: Established Patient and Follow Up Clinical Summary: Ms. Bird is a 23 year old female seen in [facility] Epilepsy Center. Classification Summary HISTORY OF PRESENT [...] her sister noticed a body jerk on [place]. When mother arrived, Quentin was blue and [...] iwatch of a tachycardia on 159-160s at 3:15am but not seizure was observed. Quentin has [...] 2.5 years without having one. Then later increasedfor seizure. August 2023 it was increased for [...] have seizure. 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 Currently holding off because of the last seizure. She feels like her memory is horrible since her first seizure. She lives at home with her mom currently. She takes metformin for possible PCOS. She takes folic acid 2 mg daily. She would like to have kids eventually. Further in the future. Notcurrently on any type of control. She is [...] titration. She is currently taking two in theAM and two in the PM. She is [...] Lasted 3.5 minutes. They had to give herIV lorazepam afterwards because they could not get [...] - Seizure risk factors: Brain Tumor No NERVE SPECIALIST Infections No Developmental Delay No Family history [...] history on file. SOCIAL HISTORY: -Lives in [place], [place] -Patient lives alone? 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 EEG today [...] through seizure. She elected to trial lamotrigine becauseof safety profile for her future plans. She [...] in combination with lacosamide, or continued seizures atfull dose, will consider change in lacosamide to another medicine (possible zonisamide). Discussed factors which may exacerbate seizures. Discussed possible future options. PLAN: -Continue lacosamide 200 mg BID -Continue titration to lamotrigine 125 mg BID -If too much side effect from dual sodium agents at full dose, or continues seizures, will considerchange in lacosamide to zonisamide -If insomnia with [...] warning of all antiepileptic medications which can increaserisk for suicidality. Women's health issues were addressed [...] which included: preparing to see the patient [id number] patient care completing clinical documentation obtaining and/or reviewing separately obtained history performing a medically appropriate examination counseling and educating the patient/family/caregiver ordering medications, tests, or procedures Daisy De Leon DO cc: Primary Care Physician: No primary care provider on file. No primary provider on file. Referring: Patient: Ms. Quentin [facility] [id number] documented in this encounterCrystal Clinic [facility] Center11-04-2024 Telephone encounter Note * Telephone Encounter - Asuncion Garcia RN - 12/23/2023 3:48 PM EST Seizure Call Last Visit: 11/13/[address] De Leon Next Visit: none scheduled Date and Time of seizure: 12/22/2023 around 4:30pm Seizure description: +LOC I did notice I was having a hard time paying attention to one thing. 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 I felt [...] yes Routed for review. Asuncion Garcia RN [facility]11-04-2024 Miscellaneous Notes* Telephone Encounter - Asuncion Garcia RN - 12/23/2023 3:48 PM EST Seizure Call Last Visit: 11/13/[address] De Leon Next Visit: none scheduled Date and Time of seizure: 12/22/2023 around 4:30pm Seizure description: +LOC I did notice I was having a hard time paying attention to one thing. 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 I felt [...] review. Asuncion Garcia RN documented in this encounterCrystal Clinic Orthopedic Center10-31-2024 Telephone encounter Note * Telephone Encounter - Asuncion Garcia RN - 12/19/2023 11:16 AM EDT Images from the original note were not included. Pharmacy called and made aware. Asuncion Garcia RN [facility]10-31-2024 Miscellaneous Notes* Telephone Encounter - Asuncion Garcia RN - 12/19/2023 11:16 AM EDT Images from the original note were not included. Pharmacy called and made aware. Asuncion Garcia RN * Telephone Encounter - Asuncion Garcia RN - 12/19/2023 11:02 AM EDT PA done via CM. (Hunter: [id number]) PA Rx #: [id number] Status: sent to plan. Asuncion Garcia RN * Telephone Encounter - Joellen Breaux - 12/19/2023 8:00 AM EDT Prior Authorization Needed: Received by: Fax Requested by (pharmacy name): [facility] Phone number: [phone] Name of medication: Nayzilam Strength and dosage: 5mgSig: Use 1 spray in one nostril as needed for seizures lasting longer than 2 minutes. Insurance company name and phone #: CMM HUNTER: [id number] Patient ID: PCN #: BIN#: Group #: Patient of Dr. De Leon Forwarded to nurse. documented in this encounterCrystal Clinic Orth[facility] Center10-31-2024 Telephone encounter Note * Telephone Encounter - Asuncion Garcia RN - 12/19/2023 11:02 AM EDT PA done via CMM. (Hunter: [id number]) CESIA Rx #: [id number] Status: sent to plan. Asuncion Garcia RN [facility]10-31-2024 Telephone encounter Note* Telephone Encounter - Meera Silva PA-C - 12/19/2023 10:59 AM EDT PDMP website checked and validated. All prescriptions have been APPROPRIATELY filled. No suspiciousactivity was identified. Meera Silva PA-C December 19, 2023 The following approved medication requests have been transmitted electronically. Requested Prescriptions Signed Prescriptions Disp Refills lacosamide (VIMPAT) 200 mg 180 tablet 1 Sig: Take 1 tablet by mouth two times a day for 180 days. Take an extra pill of Vimpat as needed ifmyoclonus occurs. Authorizing Provider: MEERA SILVA PA-C [facility]10-31-2024 Miscellaneous Notes* Telephone Encounter - Meera Silva PA-C - 12/19/2023 10:59 AM EDT PDMP website checked and validated. All prescriptions have been APPROPRIATELY filled. No suspiciousactivity was identified. Meera Silva PA-C December 19, 2023 The following approved medication requests have been transmitted electronically. Requested Prescriptions Signed Prescriptions Disp Refills lacosamide (VIMPAT) 200 mg 180 tablet 1 Sig: Take 1 tablet by mouth two times a day for 180 days. Take an extra pill of Vimpat as needed ifmyoclonus occurs. Authorizing Provider: MEERA SILVA PA-C * Telephone Encounter - Sigrid Casarez - 12/19/2023 10:47 AM EDT Prescription Refill: PATIENT OUT OF MEDICATION Requested by: patient Please Call in Caller Contact Number: [phone] (home) Pharmacy Name: [facility] Pharmacy Number: [id number] Generic/ brand: generic 30 or 90 day supply requested: 30 day supply Last appointment: 11/13/23 Next Appointment: NONE Patient of Dr. De Leon Mail order carelonrx documented in this encounterCrystal Clinic Orth[facility] Center10-31-2024 Telephone encounter Note * Telephone Encounter - Sgirid Casarez - 12/19/2023 10:47 AM EDT Prescription Refill: PATIENT OUT OF MEDICATION Requested by: patient Please Call in Caller Contact Number: [phone] (home) Pharmacy Name: [facility] Pharmacy Number: [phone] Generic/ brand: generic 30 or 90 day supply requested: 30 day supply Last appointment: 11/13/23 Next Appointment: NONE Patient of Dr. De Leon Mail order carelonrx [facility]10-31-2024 Telephone encounter Note* Telephone Encounter - Joellen Breaux - 12/19/2023 8:00 AM EDT Prior Authorization Needed: Received by: Fax Requested by (pharmacy name): [facility] Phone number: [phone] Name of medication: Nayzilam Strength and dosage: 5mgSig: Use 1 spray in one nostril as needed for seizures lasting longer than 2 minutes. Insurance company name and phone #: CMM HUNTER: [id number] Patient ID: PCN #: BIN#: Group #: Patient of Dr. De Leon Forwarded to nurse. T [facility]10-30-2024 Telephone encounter Note* Telephone Encounter - Meera Silva PA-C - 12/18/2023 10:06 AM EDT [facility] All prescriptions have been APPROPRIATELY filled. No suspiciousactivity was identified. Meera Silva PA-C December 18, [...] and tolerability. Authorizing Provider: MEERA SILVA PA-C T [facility]10-30-2024 Miscellaneous Notes* Telephone Encounter - Meera Silva PA-C - 12/18/2023 10:06 AM EDT PDMP website checked and validated. All prescriptions have been APPROPRIATELY filled. No suspiciousactivity was identified. Meera Silva PA-C December 18, [...] and tolerability. Authorizing Provider: MEERA SILVA PA-C * Telephone Encounter - Jeniffer Austin - 12/18/2023 10:01 AM EDT Prescription Refill: Requested by: patient Please E-Scribe Caller Contact Number: Pharmacy Name: [facility] Pharmacy Number: [phone] Generic/ brand: 30 or 90 day supply requested: 90 Last appointment: 11-13-2023 Next Appointment: NONE Patient of Dr. De Leon documented in this encounterCrystal Clinic [facility] Center10-30-2024 Telephone encounter Note * Telephone Encounter - Jeniffer Austin - 12/18/2023 10:01 AM EDT Prescription Refill: Requested by: patient Please E-Scribe Caller Contact Number: Pharmacy Name: [facility] Pharmacy Number: [phone] Generic/ brand: 30 or 90 day supply requested: 90 Last appointment: 11-13-2023 Next Appointment: NONE Patient of Dr. De Leon [facility]10-28-2024 History of Present illness Narrative* CESIA Esquivel - 12/16/2023 9:30 AM EDT Reason for Appointment: Patient ID: Quentin Bird [...] behalf of: CESIA Esquivel documented in this encounterSaint John's Saint Francis [id number] Telephone encounter Note* Telephone Encounter - Asuncion Garcia RN - 11/19/2023 1:07 PM EDT BMV form signed by Dr. De Leon via [email or web address]. Copies sent to [facility], pt e-mail and BMV special unit via [email or web address]. Asuncion Garcia RN [facility]10-01-2024 Miscellaneous Notes* Telephone Encounter - Asuncion Garcia RN - 11/19/2023 1:07 PM EDT BMV form signed by Dr. De Leon via [email or web address]. Copies sent to [facility], pt e-mail and BMV special unit via [email or web address]. Asuncion Garcia RN * Telephone Encounter - Asuncion Garcia RN - 11/19/2023 12:49 PM EDT BMV form received. Onset- 4 years (2019) Last SZ- 09/08/2023 BMV form is for ID purposes only. BMV form sent to Dr. De Leon to review and sign via [email or web address]. Asuncion Garcia RN * Telephone Encounter - Joellen Breaux - 11/19/2023 9:08 AM EDT Form received: From (agency / facility): BMV manager personal (if given): Quentin Bird Phone #: [phone] (home) Fax # : [phone] Information requested: Request for physician statement Patient of Dr. De Leon Forwarded to nurse. documented in this encounterCrystal Clinic [facility] Center10-01-2024 Telephone encounter Note * Telephone Encounter - Asuncion Garcia RN - 11/19/2023 12:49 PM EDT BMV form received. Onset- 4 years (2019) Last SZ- 09/08/2023 BMV form is for ID purposes only. BMV form sent to Dr. De Leon to review and sign via [email or web address]. Asuncion Garcia RN [facility]10-01-2024 Telephone encounter Note* Telephone Encounter - Joellen Breaux - 11/19/2023 9:08 AM EDT Form received: From (agency / facility): BMV manager personal (if given): Quentin Bird Phone #: [phone] (home) Fax # : [phone] Information requested: Request for physician statement Patient of Dr. De Leon Forwarded to nurse. [facility]09-26-2024 Telephone encounter Note* Telephone Encounter - Asuncion Garcia RN - 11/14/2023 8:42 AM EDT BMV form received, pt did not fill out top portion and sign. mxHero message sent to pt, in this encounter. Asuncion Garcia RN [facility]09-26-2024 Miscellaneous Notes* Telephone Encounter - Asuncion Garcia RN - 11/14/2023 8:42 AM EDT BMV form received, pt did not fill out top portion and sign. [employer]xH[employer] message sent to pt, in this encounter. Asuncion Garcia RN documented in this encounterCrystal Clinic [facility] Center09-25-2024 Instructions* Patient Instructions* Abraham Daisy, - 11/13/2023 4:32 PM EDT Lamotrigine titration [...] should be thin, down comforters may be toosoft. -Keep the bed as low to the [...] or via a video recorder. This will helpwhen you meet with your doctor. documented in this encounterCrystal Clinic [facility] Center09-25-2024 NoteHNO ID: [id number] Author: DAISY DE LEON DO Service: ? Author Type: Physician Type: Progress Notes Filed: 11/19/2023 09:49 Note Text: [facility] Patient Name: Quentin BANEGAS Date of : 2000 INITIAL EPILEPSY CLINIC NOTE 11/13/2023 3:20 PM CHIEF COMPLAINT: New Patient (New NI Patient ) HISTORY OF PRESENT ILLNESS Ms. Bird is a 23 year old female seen in [facility] Ep[facility] Outpatient [facility] for initial consultation. 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 Currently holding [...] She is currently seeing a PCP at [facility]. Total # of Current Anti-seizure Medications: Side [...] Frequency: Last occ (more content not included)... [facility]09-25-2024 History of Present illness Narrative* aDisy De Leon DO - 11/13/2023 3:43 PM EDT [facility] Patient Name: Quentin BANEGAS Date of : 2000 INITIAL EPILEPSY CLINIC NOTE 11/13/2023 3:20 PM CHIEF COMPLAINT: New Patient (New NI Patient ) HISTORY OF PRESENT ILLNESS Ms. Bird is a 23 year old female seen in [facility] Outpatient [facility] for initial consultation. [...] iwatch of a tachycardia on 159-160s at 3:15am but not seizure was observed. Quentin has [...] 2.5 years without having one. Then later increasedfor seizure. August 2023 it was increased for [...] have seizure. 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 Currently holding off because of the last seizure. She feels like her memory is horrible since her first seizure. She lives at home with her mom currently. She takes metformin for possible PCOS. She takes folic acid 2 mg daily. She would like to have kids eventually. Further in the future. Notcurrently on any type of control. She is currently on wellbutrin 150 mg daily. She has been on this for several years. She has had pretty severe depression in the past. Was on one medicine and had an attempt. Interval Seizure History She is currently seeing a PCP at [facility]. Total # of Current Anti-seizure Medications: Side [...] - Seizure risk factors: Brain Tumor No NERVE SPECIALIST Infections No Developmental Delay No Family history [...] 09/28/2020 Recurrent major depression in partial remission ([facility]) 09/28/2020 No past surgical history on file. No family history on file. SOCIAL HISTORY: -Lives in [place], [place] -Patient lives alone? -Vocation: Working three [...] pain, myalgias, muscle weakness, neck pain and neckstiffness. Skin: Negative for diaphoresis and rash. 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 EEG today [...] through seizure. She elected to trial lamotrigine becauseof safety profile for her future plans. She [...] warning of all antiepileptic medications which can increaserisk for suicidality. Women's health issues were addressed [...] to see the patient completing clinical documentation [id number] patient care obtaining and/or reviewing separately obtained history performing a medically appropriate examination counseling and educating the patient/family/caregiver ordering medications, tests, or procedures Daisy De Leon DO cc: Primary Care Physician: No primary care provider on file. No primary provider on file. Referring: Patient: Ms. Quentin Bird [address] [facility] [id number] documented in this encounterCrystal Clinic [facility] Center09-09-2024 History of Present illness Narrative* Lotus Philip MA - 10/28/2023 3:00 PM EDT Reason for Appointment: Patient ID: Quentin Bird [...] nursing note reviewed. Exam conducted with a bag liner present. Vitals: Estimated body mass index is [...] did increase dosage to 1,000 mg tablet tobegin taking to help with weight loss. Pt verbally understood and rx was sent to pharmacy. Documented by Lotus Philip MA on behalf of: Jonathan Elizabeth DO documented in this encounterSaint John's Saint Francis HospitalCblukkgkov67-96-1788 Telephone encounter Note* Telephone Encounter - Sommer Carrillo RN - 09/16/2023 11:08 AM EDT Spoke with PA department, no PA is needed. Sommer Carrillo RN [facility]07-29-2024 Miscellaneous Notes* Telephone Encounter - Sommer Carrillo RN - 09/16/2023 11:08 AM EDT Spoke with PA department, no PA is needed. Sommer Carrillo RN * Telephone Encounter - Joellen Breaux - 09/16/2023 10:37 AM EDT Prior Authorization Needed: Received by: Fax Requested by (pharmacy name): [facility] Phone number: [phone] Name of medication: LCM Strength and dosage: 200mg Take 1 tablet by mouth two times a day. 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 Insurance company name and phone #: [employer] HUNTER: [id number] Patient ID: PCN #: BIN#: Group #: Patient of Dr. Simms Forwarded to nurse. documented in this encounterCrystal Clinic [facility]opedic Center07-29-2024 Telephone encounter Note * Telephone Encounter - Joellen Breaux - 09/16/2023 10:37 AM EDT Prior Authorization Needed: Received by: Fax Requested by (pharmacy name): [facility] Phone number: [phone] Name of medication: LCM Strength and dosage: 200mg Take 1 tablet by mouth two times a day. 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 Insurance company name and phone #: [employer] HUNTER: [id number] Patient ID: PCN #: BIN#: Group #: Patient of Dr. Simms Forwarded to nurse. [facility]07-23-2024 Telephone encounter Note* Telephone Encounter - Mishel James (Rn), RN - 09/10/2023 11:31 AM EDT Spoke to Ms. Bird and advised per Dr. Simms. She verbalized understanding and agrees with plan. Please file pending orders (extra pill for myoclonus added to script). Thank you. Routed to Dr. Holland James RN [facility]07-23-2024 Miscellaneous Notes* Telephone Encounter - Mishel James)BRAYDEN - 09/10/2023 11:31 AM EDT Spoke to Ms. Bird and advised per Dr. Simms. She verbalized understanding and agrees with plan. Please file pending orders (extra pill for myoclonus added to script). Thank you. Routed to Dr. Holland James RN * Telephone Encounter - Carla Rico MD - 09/09/2023 6:11 PM EDT We can increase the Vimpat to 200mg Po BID. Please discuss missing doses of medication with the patient. A pill box is important to keep track of the medications. Thanks Carla Chowdary MD * Telephone Encounter - Mishel James)BRAYDEN - 09/09/2023 1:00 PM EDT Neuro Peds Epilepsy Care Coordination Post-seizure/Medication Concerns/Side [...] recommendation Routed to Dr. Holland James RN documented in this encounterCrystal Clinic Orthopedic Center07-22-2024 Telephone encounter Note * Telephone Encounter - Carla Rico MD - 09/09/2023 6:11 PM EDT We can increase the Vimpat to 200mg Po BID. Please discuss missing doses of medication with the patient. A pill box is important to keep track of the medications. Thanks Carla Chowdary MD [facility]07-22-2024 Telephone encounter Note* Telephone Encounter - Mishel James Rn, RN - 09/09/2023 1:00 PM EDT Neuro Peds Epilepsy Care Coordination Post-seizure/Medication Concerns/Side [...] recommendation Routed to Dr. Holland James, RN [facility]06-25-2024 Instructions* Patient Instructions* Carla Rico MD - 08/13/2023 3:18 PM EDT PLAN: Tests/Labs: none Medications: Continue Vimpat 150mg by mouth twice a day. If you are having myoclonic seizures go to a safe placeand take an extra pill of Vimpat. Continue [...] well. Carla Chowdary MD documented in this encounterCrystal Clinic Orthopedic Center06-25-2024 NoteHNO ID: [id number] Author: CARLA RICO MD Service: ? Author Type: Physician Type: Progress Notes Filed: 08/13/2023 19:51 Note Text: [facility] [place] Section of Pediatric Epilepsy/Neurology Epilepsy Center, [facility] Date of Service: 02/01/2023 RETURN VISIT NOTE HISTORY SINCE LAST VISIT: The patient has returned for follow-up regarding well controlled RAHEEL. 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 The seizures was proceededby a cluster of myoclonic jerks. She has [...] trouble falling asleep but not staying asleep. Sheoccasionally sleep walk and sleep talk. She is [...] having myoclonic seizures go to a safe placeand take an extra pill of Vimpat. Continue [...] to this plan were discussed, including a possibilityof breakthrough seizures or worsening with changes in medications. The family is advised to call myoffice or seek urgent care if there is any worsening or new symptom of concern. I again went over the general epilepsy education and seizure precautions with the family. I spent a total of 35 minutes on the date of the service which included preparing to see the patient, [id number] patient care, completing clinical documentation, obtaining and/or reviewing separately obtained history, counseling and educating the patient/family/caregiver, ordering medications, ramu ts, or procedures, communicating with other HCPs (not separately reported), independently interpreting results (not separately reported), and communicating results to the patient/family/caregiver. Carla Chowdary M.D. Staff, Epilepsy Center/Neurology, [facility] [place], Mail code - S-94 [id number] [id number] CC: Records via digital FAX or TradeYa To use this Smartlink, specify the provider ID whose address you want to display, e.g., .PROVADDR[1(where 1 is the provider ID). No referring provider defined for this encounter. Phone: N/A Fax: The family of Quentin Wh[facility] [address] documented in this encounterCrystal Clinic [facility] Center03-11-2024 Miscellaneous Notes* Telephone Encounter - Mishel James (Rn), RN - 04/29/2023 3:26 PM EDT Confirmed with pharmacy that refills available. Prescription refused. Mishel James RN documented in this encounterCrystal Clinic Orthopedic Center03-11-2024 NoteHNO ID: [id number] Author: THAO PAGAN MD Service: ? Author Type: Physician Type: Progress Notes Filed: 04/29/2023 15:25 Note Text: [facility] New Patient Evaluation PATIENT NAME: Quentin Bird DATE OF SERVICE: April 29, 2023 CONSULTING PROVIDER: Carla Chowdary [address] [facility] [address] REASON FOR CONSULT: Carla Chowdary sends the [...] negative study. 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 She has a hard [...] legs in the ortiz (more content not included)...[id number] Instructions* Patient Instructions* Demetria Funk MD - 04/29/2023 1:29 PM [...] sense of time), get out of bed anddo something relaxing or boring (reading, listening to [...] sense of time), get out of bed anddo something relaxing or boring (reading, listening to [...] for insomnia. The cost is $40. Use www.Freight Connection.ShareWithU which to access the [facility] Wellness website to purchase the program ( go to Shop, and then Wellness Programs, and the find the Go! To Sleep product). -Please fill out 2 weeks of sleep logs prior to seeing behavorial sleep medicine-sleep psychologist documented in this encounterCrystal Clinic Orthopedic Center03-11-2024 History of Present illness Narrative* Thao Pagan MD - 04/29/2023 12:55 PM EDT Images from the original note were not included. [facility] New Patient Evaluation PATIENT NAME: Quentin Bird DATE OF SERVICE: April 29, 2023 CONSULTING PROVIDER: Carla Chowdary [address] [facility] [address] REASON FOR CONSULT: Carla Chowdary sends the [...] negative study. 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 Five points is a clinicallymeaningful difference.) 04/22/2023 Physical T-Score 44.9 Mental T-Score 41.1 Glasford Sleepiness Scale Sitting and Reading? high chance [...] the newest values recorded on each date aredisplayed. Hypersomnia/Narcolepsy Medications No data to display. Prior Insomnia Medications (last 20 years) Some values may be hidden. Unless noted otherwise, only the newest values recorded on each date aredisplayed. Insomnia Medications escitalopram oxalate (LEXAPRO) 10 mg tablet Dose: Starting date: 09/13/2020 Ending date: 02/01/2023 (Discontinued) midazolam (NAYZILAM) 5 mg/spray (0.1 mL) nasal spray Dose: Use 1 spray in one nostril as needed forseizures. May repeat dose in alternate nostril after 10 minutes based on response and tolerability.Starting date: 09/28/2020 Ending date: 10/10/2020 (Discontinued) midazolam (NAYZILAM) 5 mg/spray (0.1 mL) nasal spray Dose: Use 1 spray in one nostril as needed forseizures lasting > 2 minutes. May repeat dose in alternate nostril after 10 minutes based on response and tolerability. Starting date: 10/10/2020 Ending date: 06/06/2021 (Discontinued) midazolam (NAYZILAM) 5 mg/spray (0.1 mL) nasal spray Dose: Use 1 spray in one nostril as needed forseizures lasting > 2 minutes. May repeat dose in alternate nostril after 10 minutes based on response and tolerability. Starting date: 06/06/2021 Ending date: 02/01/2023 (Discontinued) midazolam (NAYZILAM) 5 mg/spray (0.1 mL) nasal spray Dose: Use 1 spray in one nostril as needed forseizures lasting > 2 minutes. May repeat dose [...] Nasal valve incompetence absent. Posterior airspace: Tidwell tongueposition 1, retrognathia absent. Overbite absent. High arched [...] 1 episode of paarsomnia and 3 events ofdream enactment (never occurred in childhood and no safety concerns) concern for sleep initiation and sleep maintenance insomnia since last 3 years. ESS 8, PHQ 9-4, anixety/depression controlled on wellbutrin, seziures controlled on meds recently increased vimpat dose last GTC jan 2023. Has not noticed association of symptoms ever since being on vimpat ( now on increased dose of 150mgBID) or since being on wellbutrin. Believe her [...] concern for circadian rhythm disorder. Believe patient wouldbenefit from counseling with sleep hygiene , will hold off objective evidence of insufficient sleepwith Actigraphy, in interim will place referral for BSM. -Discussed hyperarousal state and underlying causes of insomnia. Discussed treatment options including medications and CBT. -Start Go to Sleep! which is a 6 week online program for cognitive behavior therapy for insomnia. The cost is $40. Use www.Scribd which to access the [facility] Wellness website to purchase the program ( go to Shop, and then Wellness Programs, and the find the Go! To Sleep product). -Consult to behavior sleep medicine specialist for individual or group cognitive behavioral therapyfor insomnia ( CBTi ). -sleep logs 2 weeks prior to BSM Follow up in 6 months in the office. Recommend scheduling this appointment now to ensure the best time for you. Plan disucssed with Dr. Karol Funk MD Sleep Medicine Fellow PGY-7 [facility] STAFF PHYSICIAN NOTE OF PERSONAL INVOLVEMENT IN [...] not have clear recall but reports it mightbe after that. From primary sleep disorder standpoint [...] with 2 [facility]. Patient agreeable. Patient wants less medications which is good. Discussed not to start any hypnotics today. Other etiology for nonrefreshing sleep should be continued to be evaluated by primary care provideror other providers. On a separate note, has [...] Disorder Center Schedule appointment or sleep studies: [phone] or [phone] option 1 Office: [phone] ext. 5 This clinical note has been [...] that may be inappropriate. documented in this encounterCrystal Clinic Orthopedic Center03-04-2024 NoteHNO ID: [id number] Author: ?, ?, ? Service: ? Author Type: ? Type: Progress Notes Filed: 04/22/2023 05:18 Note Text: Sleep Study Check-In Documentation Date: April 22, 2023 Name: Quenitn Bird Patient was accompanied by Self. Location: Latex allergy: No Tape allergy: No Current medications were reviewed with the patient:Yes Sleep aid taken by patient for the sleep study: [place] of sleep aid: Not Applicable Procedure was [...] their ordering provider regarding test results [facility] History of Present illness Narrative* Carrie Espinoza - 04/22/2023 5:16 AM EST Sleep Study Check-In Documentation Date: April 22, 2023 Name: Quentin Bird Patient was accompanied by Self. Location: Latex allergy: No Tape allergy: No Current medications were reviewed with the patient:Yes Sleep aid taken by patient for the sleep study: [place] of sleep aid: Not Applicable Procedure was [...] ordering provider regarding test results Carrie Alvares * Patrick Logan III, PhD - 04/19/2023 10:00 AM EST April 19, 2023 Standing PSG Orders signed in the last 90 days None Future PSG Orders signed in the last 90 days Ordered Auth. provider CONSULT TO SLEEP MEDICINE - ADULT [[id number]] 02/01/23 Carla Rico MD Assoc. diagnoses: Juvenile myoclonic epilepsy, not intractable, 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.B01] Q: Does consulting provider have [facility] access?: A: Yes Comment: 22 yo female with Juvenile Myoclonic Epilepsy and sleep disorders,. Evaluate and make recommendations for treatment. All Prior Sleep Studies (past 365 days) Some values may be hidden. Unless noted otherwise, only the newest values recorded on each date aredisplayed. Sleep Studies CONSULT TO SLEEP MEDICINE - ADULT Future Expected: Expires: 02/01/24 BMI Readings from Last 2 Encounters: 02/01/23 : 28.67 kg/m 06/06/21 : 34.45 kg/m (97%, Z= 1.87)* * Growth percentiles are based on [facility] (Girls, 2-20 Years) data. PAST MEDICAL HISTORY Diagnosis Date Juvenile myoclonic epilepsy, not intractable, with status epilepticus (HCC) 09/28/2020 Recurrent major depression in partial remission (HCC) 09/28/2020 The medical record was reviewed to determine if the proposed sleep study conforms to the [facility] Practice Parameters for the Indications for Polysomnography and Related Procedures, or if the sleep studyis indicated for other reasons. Indications for study: MECCA suspected with comorbid medical or sleep disorders: Abnormal/injurious sleep activity(seizures,parasomnias, limb movements) Sleep study to be performed: Double study-Polysomnogram with extra EEG Special instructions: Target REM/supine sleep Add EtCO2 or Transcutaneous CO2 if available Add upper limb leads for suspected parasomnia Seizure precautions Mily Sluga Sleep Medicine Staff Note: I have read the above protocol, edited as needed, and agree to the plan. Patrick Logan III, PhD 10:59 AM, 04/19/2023 * Tremayne Crespo - 04/15/2023 4:06 PM EST April 15, 2023 An order has been received for PSG with EEG (Double Study) from Carla Holt MD, a B[facility] Staff. Visit prep complete. Comments :No The sleep study is scheduled for 04/20. Insurance: Payor: MILAD / Plan: BLUE ACCESS PPO / Product Type: PPO / Payer/Plan Subscr Sex Relation Sub. Ins. ID Effective Group Num 1. ANTHEM - BLUE* VENKATA BIRD [birth year]/23/1968 Male Child [id number] [birth year] [id number] [id number] 2. AETNA - AETNA* YU RAWLS 10/04/1975 Male Child [id number] [birth year] [id number] [id number] Tremayne Crespo documented in this encounterCrystal Clinic Orthopedic Center02-07-2024 Miscellaneous Notes* Telephone Encounter - Mishel JamesRn), RN - 03/27/2023 3:24 PM EST Date of service: March 27, 2023 Quentin Bird is a 22 year old Last seen by Dr. Simms on 02/01/23 Now requesting folic acid refill Prescription appropriate, please file and document electronically. Thank you. Routed to Dr. Holland James RN * Telephone Encounter - Aislinn Lee - 03/26/2023 4:30 PM EST Prescription Refill: Patient has new insurance and must use [facility]. Requested by: patient Please E-Scribe Caller Contact Number: my chart Pharmacy Name: [facility] Pharmacy Number: [phone] Generic/ brand: generic 30 or 90 day supply requested: 90 Last appointment: 02/01/23 Next Appointment: 08/13/[address] Simms documented in this encounterCrystal Clinic Orthopedic Center12-19-2023 Miscellaneous Notes* Telephone Encounter - Mishel James), RN - 02/05/2023 11:26 AM EST Spoke to Ms. Bird and advised per Dr. Simms. She verbalized understanding and agrees with plan. Mishel James RN * Telephone Encounter - Mishel JamesRn)BRAYDEN - 02/05/2023 10:26 AM EST Called Ms. Rawls, did not receive answer. Message left, will await call-back. Mishel James RN * Telephone Encounter - Mishel JamesRn)BRAYDEN - 02/05/2023 8:31 AM EST ----- Message from Carla Chowdary MD sent at 02/05/2023 7:59 AM EST ----- Please let the patient know that the Vitamin D is low so I recommend she takes a daily vitamin D3 5000IU daily. She can find this over the counter. Thanks Calra Chowdary MD documented in this encounterCrystal Clinic Orthopedic Center12-15-2023 NoteHNO ID: [id number] Author: Carla Rico MD Service: ? Author Type: Physician Type: Progress Notes Filed: 02/01/2023 4:03 PM Note Text: order for double study PSG and EEG and sleep consultation [facility] Chowdary [facility]23 NoteHNO ID: [id number] Author: Carla Rico MD Service: ? Author Type: Physician Type: Progress Notes Filed: 02/01/2023 4:38 PM Note Text: [facility] [place] Section of Pediatric Epilepsy/Neurology Epilepsy Center, [facility] Date of Service: 02/01/2023 RETURN VISIT NOTE [...] two times a day for 180 days. bu-qg-qpwp-FA-Ca carb-vit K (WOMEN'S MULTIVITAMIN) 18 mg-400 mcg- [...] new symptom of concern. (more content not included)...[facility]12-15-2023 Instructions* Patient Instructions* Carla Rico MD - 02/01/2023 4:06 PM [...] to take bupropion for depression. Return visit: [facility]23 Call if seizures or myoclonic jerks in the hands Carla Chowdary MD documented in this encounterCrystal Clinic Orthopedic Center12-15-2023 History of Present illness Narrative* Carla Rico MD - 02/01/2023 3:58 PM EST order for double study PSG and EEG and sleep consultation Carla Chowdary MD documented in this encounterCrystal Clinic Orthopedic Center12-15-2023 History of Present illness Narrative* Carla Rico MD - 02/01/2023 3:42 PM EST [facility] [place] Section of Pediatric Epilepsy/Neurology Epilepsy Center, [facility] Date of Service: 02/01/2023 RETURN VISIT NOTE HISTORY SINCE LAST VISIT: The patient has returned for follow-up regarding well controlled RAHEEL. 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 Quentin had a seizures on 01/19/2023 while at work. It lasted 1 minute and 30 seconds. No rescue medications. She felt forward in the ground. I saw the work place video in which Quentin walk with a plate offood and falls to the ground suddenly with [...] two times a day for 180 days. yh-ct-vpcf-FA-Ca carb-vit K (WOMEN'S MULTIVITAMIN) 18 mg-400 mcg- [...] kg (150 lb 14.4 oz) LMP 06/03/2021 (ExactDate) SpO2 100% BMI 28.67 kg/m . PHYSICAL [...] take bupropion for depression. Return visit: [facility] in 2023 Call if seizures or myoclonic jerks in the hands The possible risks, benefits, and alternatives to this plan were discussed, including a possibilityof breakthrough seizures or worsening with changes in medications. The family is advised to call myoffice or seek urgent care if there is any worsening or new symptom of concern. I again went over the general epilepsy education and seizure precautions with the family. I spent a total of 35 minutes on the date of the service which included preparing to see the patient, xpme-[id number] patient care, completing clinical documentation, obtaining and/or reviewing separately obtained history, counseling and educating the patient/family/caregiver, ordering medications, ramu ts, or procedures, communicating with other HCPs (not separately reported), independently interpreting results (not separately reported), and communicating results to the patient/family/caregiver. Carla Chowdary M.D. Staff, Epilepsy Center/Neurology, [facility] [place], Mail code - S-51 [address] [facility] [address] CC: Records via digital FAX or Epic To use this Smartlink, specify the provider ID whose address you want to display, e.g., .PROVADDR[1(where 1 is the provider ID). No referring provider defined for this encounter. Phone: N/A Fax: The family of Quentin Bird [address] [facility] [address] documented in this encounterCrystal Clinic Orthopedic Center12-04-2023 Miscellaneous Notes* Telephone Encounter - Michell Gonzalez MD - 01/21/2023 4:30 PM EST The following approved medication requests have been transmitted electronically. Requested Prescriptions Signed Prescriptions Disp Refills lacosamide (VIMPAT) 50 mg tab 180 tablet 1 Sig: Take 1 tablet by mouth two times a day. Take along with 100 mg tablets twice daily = total dose 150 mg twice daily Authorizing Provider: MICHELL GONZALEZ MD * Telephone Encounter - Mishel James (Rn), RN - 01/21/2023 4:15 PM EST Spoke to Ms. Bird and advised per Dr. Gonzalez. She verbalized understanding and agrees with plan. Please file pending orders. Thank you. Routed to Dr. Lisa James, RN * Telephone Encounter - Michell Gonzalez MD - 01/21/2023 2:21 PM EST May offer to increase lacosamide by 50 mg/d q1 week from 200 to 300 mg/d. Recommend to avoid alcohol and sleep deprivation. Michell Gonzalez MD * Telephone Encounter - Mishel James (Rn), RN - 01/21/2023 9:49 AM EST Neuro Peds Epilepsy Care Coordination Post-seizure/Medication Concerns/Side [...] pounds Main concern : Would like recommendation = Routed to Dr. Gonzalez (covering) Mishel James RN * Telephone Encounter - Joellen Breaux - 01/21/2023 8:54 AM EST Seizure activity: Name of Caller : Quentin Bird Relationship to patient: Self Contact phone number: [phone] Date of seizure: 01/19/23 Duration: 2 minutes Back to Baseline (Yes/No): yes Emergency treatment needed (Yes/No): yes Patient of Dr. Simms documented in this encounterCrystal Clinic Orthopedic Center10-11-2023 Miscellaneous Notes* Telephone Encounter - Sara Davenport LPN - 11/28/2022 1:07 PM EDT Date of service: November 28, 2022 -Prescription appropriate, please file and document electronically. Thank you. -Routed to Dr. Holland Davenport LPN * Telephone Encounter - Jeniffer Austin - 11/28/2022 10:16 AM EDT Prescription Refill: Requested by: My chart Please E Scribe Caller Contact Number: [phone] (home) Pharmacy Name: [facility] Pharmacy Number: [phone] Generic/ brand: 30 or 90 day supply requested: 90 Last appointment: 06/06/2021 Next Appointment: none fwd to schedulers Patient of Dr. Simms documented in this encounterCrystal Clinic Orthopedic Center10-26-2022 Miscellaneous Notes* Telephone Encounter - Debra Call RN - 12/13/2021 3:44 PM EDT New pharmacy .-Prescription appropriate. Please file, document electronically, and CLOSE encounter. Thank you. -Routed to Dr. Holland Call RN * Telephone Encounter - Joellen Breaux - 12/13/2021 10:16 AM EDT Prescription Refill: NEW PHARMACY REQUEST; PLEASE RE-APPROVE Requested by: pharmacy Please E-Scribe Caller Contact Number: Pharmacy Name: [facility] Pharmacy Number: [phone] Generic/ brand: 30 or 90 day supply requested: 90 Last appointment: 06/06/21 Next Appointment: none Patient of Dr. Simms documented in this encounterCrystal Clinic Orthopedic Center09-09-2022 Miscellaneous Notes* Telephone Encounter - Cedrick Chapman MD - 10/27/2021 5:03 PM EDT Reviewed and refilled the medications noted below. Requested Prescriptions Pending Prescriptions Disp Refills hq-kp-zmxo-FA-Ca carb-vit K (WOMEN'S MULTIVITAMIN) 18 mg-400 mcg- 500 mg-50 mcg tab 365 tablet 0 Sig: Take 1 tablet by mouth once daily. folic acid 1 mg tablet 180 tablet 3 Sig: Take 2 tablets by mouth once daily. lacosamide (VIMPAT) 100 mg tab 180 tablet 3 Sig: Take 1 tablet by mouth twice daily. Tania Jauregui,Bhavya, M.D Pediatric Epileptologist Epilepsy Center, [place] [id number] * Telephone Encounter - Mishel James RN - 10/27/2021 3:01 PM EDT Date of service: October 27, 2021 Quentin Bird is a 21 year old Last seen by Dr. Simms on 10/27/21 Now requesting medication refill Prescription appropriate, please file and document electronically. Thank you. Routed to Dr. Chapman (covering) Mishel James RN documented in this encounterCrystal Clinic Orthopedic Center04-21-2022 Miscellaneous Notes* Telephone Encounter - FELICIA Dickens - 06/08/2021 12:26 PM EDT Received approval for Nayzilam from [employer]. Approval Dates: 06/08/21-06/08/22. REF #: [id number] Approval uploaded to [facility]. * Telephone Encounter - Mishel James RN - 06/08/2021 10:36 AM EDT Images from the original note were not included. PA submitted via Covermymeds. Mishel James RN * Telephone Encounter - FELICIA Dickens - 06/07/2021 4:14 PM EDT Prior Authorization Needed: Received by: Fax Requested by (pharmacy name): [facility]) Phone number: Name of medication: Nayzilam Strength and dosage: 5mg Insurance company name and phone #: [facility]LY [facility] Patient ID: [id number] Patient of Dr. Simms documented in this encounterCrystal Clinic Orthopedic Center04-18-2022 Miscellaneous Notes* Telephone Encounter - Mishel James RN - 06/05/2021 3:08 PM EDT Date of service: June 05, 2021 Quentin Bird is a 20 year old Last seen by Dr. Simms on 12/01/2020 Now requesting folic acid refill Prescription appropriate, please file and document electronically. Thank you. Routed to Dr. Holland James RN * Telephone Encounter - FELICIA Dickens - 06/05/2021 10:43 AM EDT Prescription Refill: NEW MAIL ORDER Requested by: pharmacy Please E-Scribe Caller Contact Number: Pharmacy Name: [facility] Number: Generic/ brand: 30 or 90 day supply requested: 90 Last appointment: 12/01/20 Next Appointment: 06/06/[address] Simms documented in this encounterCrystal Clinic Orthopedic Center04-14-2022 Miscellaneous Notes* Telephone Encounter - Mishel James RN - 06/01/2021 3:44 PM EDT Date of service: June 01, 2021 Quentin Bird is a 20 year old Last seen by Dr. Simms on 12/01/2020 Now requesting lacosamide refill - NEEDS RESENT TO MAIL ORDER PHARMACY Prescription appropriate, please file and document electronically. Thank you. Routed to Dr. Holland James RN * Telephone Encounter - Joellen Breaux - 06/01/2021 11:15 AM EDT Prescription Refill: NEW PHARMACEY REQUEST; PLEASE RE-APPROVE. Requested by: pharmacy Please E-Scribe Caller Contact Number: Pharmacy Name: [facility] Pharmacy Number: [phone] Generic/ brand: 30 or 90 day supply requested: 90 Last appointment: 12/01/2020 Next Appointment: 06/06/[address] Simms documented in this encounterCrystal Clinic Orthopedic Center04-13-2022 Miscellaneous Notes* Telephone Encounter - Mishel James RN - 05/31/2021 8:25 AM EDT Duplicate request. Mishel James RN documented in this encounterCrystal Clinic Orthopedic Center04-12-2022 Miscellaneous Notes* Telephone Encounter - Mishel James RN - 05/30/2021 3:49 PM EDT Date of service: May 30, 2021 Quentin Bird is a 20 year old Last seen by Dr. Simms on 12/01/2020 Now requesting lacosamide refill Prescription appropriate, please file and document electronically. Thank you. Routed to Dr. Holland James RN * Telephone Encounter - Joellen Breaux - 05/30/2021 10:06 AM EDT Prescription Refill: Requested by: pharmacy Please E-Scribe Caller Contact Number: [facility] Name[facility] Number: [phone] Generic/ brand: 30 or 90 day supply requested: 90 Last appointment: 12/01/2020 Next Appointment: 06/06/[address] 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 documented in this encounter [facility] CenterEvaluation [facility]* Diagnosis Juvenile myoclonic epilepsy, not intractable, 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 [facility] Diagnosis Juvenile myoclonic epilepsy, not intractable, 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 [facility] Diagnosis Juvenile myoclonic epilepsy, not intractable, 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 [facility] Diagnosis Juvenile myoclonic epilepsy, not intractable, 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 MECCA (obstructive sleep apnea) Obstructive sleep apnea (adult) (pediatric) [facility] Diagnosis Juvenile myoclonic epilepsy, not intractable, 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 Vitamin D deficiency Unspecified vitamin D deficiency [facility] Diagnosis Frequent nocturnal awakening- Primary Other sleep disturbances Juvenile myoclonic epilepsy, not intractable, 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 [facility]* Diagnosis Follow-up encounter involving medication [facility] noteNo assessment information availableBar[facility] Work Phone: Evaluation note* Diagnosis Juvenile myoclonic epilepsy, not intractable, 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 [facility] Diagnosis Juvenile myoclonic epilepsy, not intractable, 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 [facility] Diagnosis Juvenile myoclonic epilepsy, not intractable, 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 [facility] Diagnosis Well woman exam with routine gynecological exam Routine gynecological examination Insulin resistance Other abnormal glucose Screen for STD (sexually transmitted disease) Screening examination for venereal disease [facility] Diagnosis Juvenile myoclonic epilepsy, not intractable, 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 [facility] Diagnosis Juvenile myoclonic epilepsy, not intractable, 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 [facility] Diagnosis Juvenile myoclonic epilepsy, not intractable, 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 [facility] Diagnosis Juvenile myoclonic epilepsy, not intractable, 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 [facility] Diagnosis Wellness examination- Primary Juvenile myoclonic [...] and depression (CMS/HCC) documented [facility]* Diagnosis Intractable juvenile myoclonic epilepsy without status epilepticus (CMS/HCC)- Primary documented in this encounter [facility]* Diagnosis BV (bacterial vaginosis)- Primary Unspecified vaginitis and vulvovaginitis Menorrhagia with irregular cycle documented in this encounter [facility]* Diagnosis Onset Date Resolution Status Admit Date RAHEEL (juvenile myoclonic epilepsy) acute August 27, 2024 12:29pm [facility] Work Phone: Evaluation note* Diagnosis STD exposure Sexually transmitted disease exposure Contact with or exposure to venereal diseases BV (bacterial vaginosis) Unspecified vaginitis and vulvovaginitis documented in this encounter [facility]* Diagnosis Vaginal discharge Leukorrhea, not specified as infective STD exposure Vaginal lesion Other specified noninflammatory disorder of vagina documented in this encounter [facility]* Diagnosis Herpes genitalis in women- Primary Unspecified genital herpes documented in this encounter [facility]* Diagnosis Menorrhagia with irregular cycle Insulin resistance Other abnormal glucose Herpes genitalis in women Unspecified genital herpes documented in this encounter [facility] Discharge instructions Additional Instructions Follow-up with your primary care doctor [facility]: Reason for referral (narrative)* Outpatient Procedure (Routine) - Pending Review Specialty Diagnoses / Procedures Referred By Myra salcedo [facility] Diagnoses Juvenile myoclonic epilepsy, not intractable, with status epilepticus (HCC) MECCA (obstructive sleep apnea) Procedures PSG WITH EEG (DOUBLE STUDY) POLYSOM 6/>YRS SLEEP W/CPAP 4/> ADDL NANCY ATTND EEG PHYS/QHP EA INCR>12HR<26HR AFTER 24HR W/VEEG Carla Rico MD [id number] [place] [address] Referral ID Status Reason Start Date Expiration Date Visits Requested Visits Authorized [id number] Pending Review Auto-Generat ed Referral 3 03/02/2024 1 1 * Consult, Test, Treat (Routine) - Authorized Specialty Diagnoses / Procedures Referred By Myra salcedo Referred To [facility] Diagnoses Juvenile myoclonic epilepsy, not intractable, with status epilepticus (HCC) Procedures CONSULT TO SLEEP MEDICINE - ADULT OFFICE/OUTPATIENT [facility] MDM 60-74 MINUTES Carla Rico MD [address] [place] [address] Referral ID Status Reason Start Date Expiration Date Visits Requested Visits Authorized [id number] Authorized PCP Requested Referral 3 02/01/2024 1 1 [facility] for referral (narrative)* Outpatient Procedure (Routine) - Authorized Specialty Diagnoses / Procedures Referred By Myra salcedo Referred To Contact [facility] Diagnoses Juvenile myoclonic epilepsy, not intractable, with status epilepticus (HCC) Procedures EPIL EEG LONG EEG EXTENDED MONITORING 61-119 MINUTES ELECTROENCEPHALOGRAM REC COMA/SLEEP ONLY Daisy De Leon DO [address] [place] [address] [facility] [address] [place], [place] [id number] Referral ID Status Reason Start Date Expiration Date Visits Requested Visits Authorized [id number] Authorized Auto-Generat ed Referral 4 01/08/2025 1 1 [facility] for referral (narrative)No reason for referral information [facility] Work Phone: Summary Purpose Family History No Family History Records FoundNo Family History Records FoundNo Family History Records FoundNo Family History Records FoundNo Family History Records FoundNo Family History Records FoundNo Family History Records Found Advance Directives No Advanced Directives Records Found Advance Directive Response Recorded Date/ Time Advance Directives No June 13 11:29am Advance Directive Response Recorded Date/ Time Advance Directives No June 13 10:29am Chief Complaint and Reason for Visit Chief Complaint Admit Date Follow up for DMV ppw August 27, 2024 12 :29pm G40.B19 November 05, 2024 3:49pm Reason for Visit Admit Date RAHEEL (juvenile myoclonic epilepsy) August 182024 12:29pm Chief Complaint Urinary Tract Infect ion / [...] 9 :06am difficulty keeping meds down February h2024 1:17pm Z13.0 Z13.6 April 20, 2024 11:4 5am Chief Complaint Admit Date Seizure March 04, 2024 9 :06am difficulty keeping meds down February h2024 1:17pm Z13.0 Z13.6 April 20, 2024 11:4 5am R00.0 R56.9 I49.1 R94.31 May 18 1:51pm Chief Complaint Admit Date Follow up for DMV ppw August 27, 2024 12 :29pm Additional Source Comments Source Comments (unrecognize d section and content) In the event this informatio n is protected by the Federal Confidentiality of Alcohol and Drug Abuse Patient Records regulations: The Federal rules restrict any use of the information to criminally investigate or prosecute any alcohol or drug abuse patient.[facility] CenterIn the event this information is protected by the Federal Confidentiality of Alcohol and Drug Abuse Patient Records regulations: The Federal rules restrict any use of the information to criminally investigate or prosecute any alcohol or drug abuse patient.[facility] CenterIn the event this information is protected by the Federal Confidentiality of Alcohol and Drug Abuse Patient Records regulations: The Federal rules restrict any use of the information to criminally investigate or prosecute any alcohol or drug abuse patient.[facility] CenterIn the event this information is protected by the Federal Confidentiality of Alcohol and Drug Abuse Patient Records regulations: The Federal rules restrict any use of the information to criminally investigate or prosecute any alcohol or drug abuse patient.[facility] CenterIn the event this information is protected by the Federal Confidentiality of Alcohol and Drug Abuse Patient Records regulations: The Federal rules restrict any use of the information to criminally investigate or prosecute any alcohol or drug abuse patient.[facility] CenterIn the event this information is protected by the Federal Confidentiality of Alcohol and Drug Abuse Patient Records regulations: The Federal rules restrict any use of the information to criminally investigate or prosecute any alcohol or drug abuse patient.[facility] CenterIn the event this information is protected by the Federal Confidentiality of Alcohol and Drug Abuse Patient Records regulations: The Federal rules restrict any use of the information to criminally investigate or prosecute any alcohol or drug abuse patient.[facility] CenterIn the event this information is protected by the Federal Confidentiality of Alcohol and Drug Abuse Patient Records regulations: The Federal rules restrict any use of the information to criminally investigate or prosecute any alcohol or drug abuse patient.[facility] CenterIn the event this information is protected by the Federal Confidentiality of Alcohol and Drug Abuse Patient Records regulations: The Federal rules restrict any use of the information to criminally investigate or prosecute any alcohol or drug abuse patient.[facility] CenterIn the event this information is protected by the Federal Confidentiality of Alcohol and Drug Abuse Patient Records regulations: The Federal rules restrict any use of the information to criminally investigate or prosecute any alcohol or drug abuse patient.[facility] CenterIn the event this information is protected by the Federal Confidentiality of Alcohol and Drug Abuse Patient Records regulations: The Federal rules restrict any use of the information to criminally investigate or prosecute any alcohol or drug abuse patient.[facility] CenterIn the event this information is protected by the Federal Confidentiality of Alcohol and Drug Abuse Patient Records regulations: The Federal rules restrict any use of the information to criminally investigate or prosecute any alcohol or drug abuse patient.[facility] CenterIn the event this information is protected by the Federal Confidentiality of Alcohol and Drug Abuse Patient Records regulations: The Federal rules restrict any use of the information to criminally investigate or prosecute any alcohol or drug abuse patient.[facility] CenterIn the event this information is protected by the Federal Confidentiality of Alcohol and Drug Abuse Patient Records regulations: The Federal rules restrict any use of the information to criminally investigate or prosecute any alcohol or drug abuse patient.[facility] CenterIn the event this information is protected by the Federal Confidentiality of Alcohol and Drug Abuse Patient Records regulations: The Federal rules restrict any use of the information to criminally investigate or prosecute any alcohol or drug abuse patient.[facility] CenterIn the event this information is protected by the Federal Confidentiality of Alcohol and Drug Abuse Patient Records regulations: The Federal rules restrict any use of the information to criminally investigate or prosecute any alcohol or drug abuse patient.[facility] CenterIn the event this information is protected by the Federal Confidentiality of Alcohol and Drug Abuse Patient Records regulations: The Federal rules restrict any use of the information to criminally investigate or prosecute any alcohol or drug abuse patient.[facility] CenterIn the event this information is protected by the Federal Confidentiality of Alcohol and Drug Abuse Patient Records regulations: The Federal rules restrict any use of the information to criminally investigate or prosecute any alcohol or drug abuse patient.[facility] CenterIn the event this information is protected by the Federal Confidentiality of Alcohol and Drug Abuse Patient Records regulations: The Federal rules restrict any use of the information to criminally investigate or prosecute any alcohol or drug abuse patient.[facility] CenterIn the event this information is protected by the Federal Confidentiality of Alcohol and Drug Abuse Patient Records regulations: The Federal rules restrict any use of the information to criminally investigate or prosecute any alcohol or drug abuse patient.[facility] CenterIn the event this information is protected by the Federal Confidentiality of Alcohol and Drug Abuse Patient Records regulations: The Federal rules restrict any use of the information to criminally investigate or prosecute any alcohol or drug abuse patient.[facility] CenterIn the event this information is protected by the Federal Confidentiality of Alcohol and Drug Abuse Patient Records regulations: The Federal rules restrict any use of the information to criminally investigate or prosecute any alcohol or drug abuse patient.[facility] CenterIn the event this information is protected by the Federal Confidentiality of Alcohol and Drug Abuse Patient Records regulations: The Federal rules restrict any use of the information to criminally investigate or prosecute any alcohol or drug abuse patient.[facility] CenterIn the event this information is protected by the Federal Confidentiality of Alcohol and Drug Abuse Patient Records regulations: The Federal rules restrict any use of the information to criminally investigate or prosecute any alcohol or drug abuse patient.[facility] the event this information is protected by the Federal Confidentiality of Alcohol and Drug Abuse Patient Records regulations: The Federal rules restrict any use of the information to criminally investigate or prosecute any alcohol or drug abuse patient.[facility] CenterIn the event this information is protected by the Federal Confidentiality of Alcohol and Drug Abuse Patient Records regulations: The Federal rules restrict any use of the information to criminally investigate or prosecute any alcohol or drug abuse patient.[facility] CenterIn the event this information is protected by [...] or prosecute any alcohol or drug abuse patient.[facility] CenterIn the event this information is protected by the Federal Confidentiality of Alcohol and Drug Abuse Patient Records regulations: The Federal rules restrict any use of the information to criminally investigate or prosecute any alcohol or drug abuse patient.[facility] CenterIn the event this information is protected by the Federal Confidentiality of Alcohol and Drug Abuse Patient Records regulations: The Federal rules restrict any use of the information to criminally investigate or prosecute any alcohol or drug abuse patient.[facility] CenterIn the event this information is protected by the Federal Confidentiality of Alcohol and Drug Abuse Patient Records regulations: The Federal rules restrict any use of the information to criminally investigate or prosecute any alcohol or drug abuse patient.[facility] CenterIn the event this information is protected by the Federal Confidentiality of Alcohol and Drug Abuse Patient Records regulations: The Federal rules restrict any use of the information to criminally investigate or prosecute any alcohol or drug abuse patient.[facility] CenterIn the event this information is protected by the Federal Confidentiality of Alcohol and Drug Abuse Patient Records regulations: The Federal rules restrict any use of the information to criminally investigate or prosecute any alcohol or drug abuse patient.[facility] CenterIn the event this information is protected by the Federal Confidentiality of Alcohol and Drug Abuse Patient Records regulations: The Federal rules restrict any use of the information to criminally investigate or prosecute any alcohol or drug abuse patient.[facility] CenterIn the event this information is protected by the Federal Confidentiality of Alcohol and Drug Abuse Patient Records regulations: The Federal rules restrict any use of the information to criminally investigate or prosecute any alcohol or drug abuse patient.[facility] CenterIn the event this information is protected by the Federal Confidentiality of Alcohol and Drug Abuse Patient Records regulations: The Federal rules restrict any use of the information to criminally investigate or prosecute any alcohol or drug abuse patient.[facility] CenterIn the event this information is protected by the Federal Confidentiality of Alcohol and Drug Abuse Patient Records regulations: The Federal rules restrict any use of the information to criminally investigate or prosecute any alcohol or drug abuse patient.[facility] CenterIn the event this information is protected by the Federal Confidentiality of Alcohol and Drug Abuse Patient Records regulations: The Federal rules restrict any use of the information to criminally investigate or prosecute any alcohol or drug abuse patient.[facility] CenterIn the event this information is protected by the Federal Confidentiality of Alcohol and Drug Abuse Patient Records regulations: The Federal rules restrict any use of the information to criminally investigate or prosecute any alcohol or drug abuse patient.[facility] CenterIn the event this information is protected by the Federal Confidentiality of Alcohol and Drug Abuse Patient Records regulations: The Federal rules restrict any use of the information to criminally investigate or prosecute any alcohol or drug abuse patient.[facility] CenterIn the event this information is protected by the Federal Confidentiality of Alcohol and Drug Abuse Patient Records regulations: The Federal rules restrict any use of the information to criminally investigate or prosecute any alcohol or drug abuse patient.[facility] CenterIn the event this information is protected by the Federal Confidentiality of Alcohol and Drug Abuse Patient Records regulations: The Federal rules restrict any use of the information to criminally investigate or prosecute any alcohol or drug abuse patient.[facility] CenterIn the event this information is protected by the Federal Confidentiality of Alcohol and Drug Abuse Patient Records regulations: The Federal rules restrict any use of the information to criminally investigate or prosecute any alcohol or drug abuse patient.[facility] Reason for Visit (unrecogniz ed section and [...] HIGH MDM 60-74 MINUTES Carla Rico MD [address] [place] [address] Referral ID Status Reason Start Date Expiration Date V isits Requested Visits Authorized [id number] Closed PCP Requested Referral 02/01/2023 02/01/2024 1 [...] Comments Menorrhagia clotting Reason Comments STI Screening Reason Comments Genital Sores INFORMATION SOURCE (unrecogn ized section and content) DATE CREATED AUTHOR 02/07/2023 [facility] DATE CREATED AUTHOR AUTHOR'S ORGANIZ ATION 02/26/2023 [facility] EPIC DATE CREATED AUTHOR AUTHOR'S ORGANIZ ATION 04/30/2023 [facility] DATE CREATED AUTHOR AUTHOR'S ORGANIZ ATION 04/20/2024 [facility] DATE CREATED AUTHOR AUTHOR'S ORGANIZ ATION 09/10/2024 [facility] DATE CREATED AUTHOR AUTHOR'S ORGANIZ ATION 10/14/2024 [facility] EPIC DATE CREATED AUTHOR AUTHOR'S ORGANIZ ATION 11/09/2024 [facility] Care Teams (unrecognized sec tion and content) Team Status: Active Member Role Status Dates [facility] Provider Active Team Status: Inactive Member Role Status Dates [facility] Primary Care Provider Active Start: June 14, 2023 End: June 14, 2023 Maira Gibson APRN Attending Provider Active Start: June 14, 2023 End: June 14, 2023 Team Status: Inactive Member Role Status Dates Maira Gibson APRN Attending Provider Active Start: June 14, 2023 End: June 14, 2023 Retail Pharmacy Technician Relationship Specialty Start Date End Date Love Madison MD [address] [place] [address] PCP - General Family Medicine 01/25/23 Ashley Corcoran NP [address] [place] [address] Nurse Practitioner Family Medicine 01/25/23 Retail Pharmacy Technician Relationship Specialty Start Date End Date Love Madison MD [address] [place] [address] PCP - General Family Medicine 01/25/23 Ashley Corcoran NP [address] [place] [address] Nurse Practitioner Family Medicine 01/25/23 Team Status: [...] End: December 11, 2023 Baldev Mayer - [facility] , DO [facility] Attending Provider Active Start: December 11, 2023 End: December 11, 2023 Retail Pharmacy Technician Relationship Specialty Start Date End Date Love Madison MD [address] [place] [address] PCP - General Family Medicine 01/25/23 Ashley Corcoran NP [address] [place] [address] Nurse Practitioner Family Medicine 01/25/23 Retail Pharmacy Technician Relationship Specialty Start Date End Date Love Madison MD [address] [place] [address] PCP - General Family Medicine 01/25/23 Ashley Corcoran NP [address] [place] [address] Nurse Practitioner Family Medicine 01/25/23 Team Status: [...] March 16, 2024 End: March 16, 2024 Retail Pharmacy Technician Relationship Specialty Start Date End Date Love Madison MD [address] [facility] [place] [address] PCP - General Family Medicine 01/25/23 Ashley Corcoran NP [address] [facility] [place] [address] Nurse Practitioner Family Medicine 01/25/23 Retail Pharmacy Technician Relationship Specialty Start Date End Date Chey Bliss MD [address] [facility] [place] [address] PCP - General Family Medicine 04/13/24 Ashley Corcoran NP [address] [facility] [place] [address] Nurse Practitioner Family Medicine 01/25/23 Retail Pharmacy Technician Relationship Specialty Start Date End Date Chey Bliss MD [address] [facility] [place] [address] PCP - General Family Medicine 04/13/24 Nory Aguilar NP [address] [facility] [place] [address] Nurse Practitioner Family Medicine 04/20/24 Retail Pharmacy Technician Relationship Specialty Start Date End Date Chey Bliss MD [address] [facility] [place] [address] PCP - General Family Medicine 04/13/24 Nory Aguilar NP [address] [facility] [place] [address] Nurse Practitioner Family Medicine 04/20/24 Team Status: Active Member Role Status Dates Nory Aguilar NP-Suly Primary Care Provider Active Team Status: Inactive Member Role Status Dates DEUCE Cristina Primary Care Pro vider, Attending Provider Active Start: April 20, 2024 End: April 20, 2024 Team Status: Inactive Member Role Status Dates DEUCE Cristina Primary Care Pro vider, Attending Provider Active Start: May 18, 2024 End: May 18, 2024 Retail Pharmacy Technician Relationship Specialty Start Date End Date Chey Bliss MD [address] [facility] [place] [address] PCP - General Family Medicine 04/13/24 Nory Aguilar NP [address] [place] [address] Nurse Practitioner Family Medicine 04/20/24 Gabi Mcclure DO [address] [address] Referring Physician Neurology 06/18/24 Retail Pharmacy Technician Relationship Specialty Start Date End Date Chey Bliss MD PCP - General Family Medicine 04/13/24 Nory Aguilar NP [address] [facility] [place] [address] Nurse Practitioner Family Medicine 04/20/24 Gabi Mcclure DO [address] [place] [phone] Referring Physician Neurology 06/18/24 Retail Pharmacy Technician Relationship Specialty Start Date End Date Chey Bliss MD PCP - General Family Medicine 04/13/24 Nory Aguilar NP [address] [place], [place] [id number] Nurse Practitioner Family Medicine 04/20/24 Gabi Mcclure DO [address] [place] [phone] Referring Physician Neurology 06/18/24 Retail Pharmacy Technician Relationship Specialty Start Date End Date Chey Bliss MD PCP - General Family Medicine 04/13/24 Nory Aguilar NP [address] [place] [address] Nurse Practitioner Family Medicine 04/20/24 Gabi Mcclure DO [address] [place] [phone] Referring Physician Neurology 06/18/24 Team Status: Inactive Member Role Status Dates DEUCE Cristina Primary Care Provider Active Start: August 27, 2024 End: August 27, 2024 Gabi Mcclure DO Attending Provider Active Start: August 27, 2024 End: August 27, 2024 Retail Pharmacy Technician Relationship Specialty Start Date End Date Chey Bliss MD PCP - General Family Medicine 04/13/24 Nory Aguilar NP [address] [place] [address] Nurse Practitioner Family Medicine 04/20/24 Gabi Mcclure DO [address] [address] Referring Physician Neurology 06/18/24 Retail Pharmacy Technician Relationship Specialty Start Date End Date Chey Bliss MD PCP - General Family Medicine 04/13/24 Nory Aguilar NP [address] [place] [address] Nurse Practitioner Family Medicine 04/20/24 Gabi Mcclure DO [address] [place] [phone] Referring Physician Neurology 06/18/24 Retail Pharmacy Technician Relationship Specialty Start Date End Date Chey Bliss MD PCP - General Family Medicine 04/13/24 Nory Aguilar NP [address] [place] [address] Nurse Practitioner Family Medicine 04/20/24 Gabi Mcclure DO [address] [address] Referring Physician Neurology 06/18/24 Retail Pharmacy Technician Relationship Specialty Start Date End Date Chey Bliss MD PCP - General Family Medicine 04/13/24 Nory Aguilar NP [address] [place] [address] Nurse Practitioner Family Medicine 04/20/24 Gabi Mcclure DO [address] [place] [phone] Referring Physician Neurology 06/18/24 Retail Pharmacy Technician Relationship Specialty Start Date End Date Chey Bliss MD PCP - General Family Medicine 04/13/24 Nory Aguilar FORGE UTILITY WORKER [address] [place] [address] Nurse Practitioner Family Medicine 04/20/24 Gabi Mcclure DO [address] [place] [phone] Referring Physician Neurology 06/18/24 Retail Pharmacy Technician Relationship Specialty Start Date End Date Chey Bliss MD PCP - General Family Medicine 04/13/24 Nory Aguilar, GENI [address] [place] [address] Nurse Practitioner Family Medicine 04/20/24 Gabi Mcclure DO [address] [place] [phone] Referring Physician Neurology 06/18/24 Retail Pharmacy Technician Relationship Specialty Start Date End Date Chey Bliss MD PCP - General Family Medicine 04/13/24 Nory Aguilar, FORGE UTILITY WORKER [address] [place] [address] Nurse Practitioner Family Medicine 04/20/24 Gabi Mcclure DO [address] [address] Referring Physician Neurology 06/18/24 Retail Pharmacy Technician Relationship Specialty Start Date End Date Chey Bliss MD PCP - General Family Medicine 04/13/24 Nory Aguilar NP [address] [place] [address] Nurse Practitioner Family Medicine 04/20/24 Gabi Mcclure DO [address] [address] Referring Physician Neurology 06/18/24 Team Status: Inactive Member Role Status Dates Nory Aguilar NP-C Primary Care Provider Active Start: November 05, 2024 End: November 05, 2024 Gabi Mcclure DO Attending Provider Active Start: November 05, 2024 End: November 05, 2024 Jonathan Elizabeth DO Other Provider Active Start: Se ptember 2024 End: November 05, 2024 Goals (unrecognized section and content) Goals may [...] BE BASED ON THE PRIMARY CLINICAL RECORDS. [employer] provides no warranty or guarantee of the accuracy or completeness of information in this document.
== END 2024-11-27 07:01 | disposition home or self-care (01) ==
LOC: US 07:00
PROVIDERS: PCP Nurse Practitioner Family; Visit Provider Obstetrics & Gynecology
DX: Z32.01 Encounter for pregnancy test, result positive (principal); N92.6 Irregular menstruation, unspecified
CPT/HCPCS: 76817

== ENCOUNTER 2024-12-03 16:55 | Outpatient (OUT) | payer BC, OTHER, SELFPAY ==
--- OUTSIDE RECORDS SUMMARY | 2024-12-03 17:00 | XMS_ITS | CCD ---
Author Organization [facility] Care Team Providers Care Rerecording Mixer Name Role Phone Unavailable Primary Care Provider [...] Provider Unava ilable TOO Manrique Emergency Provider [phone] NO FAMILY, PHYSICIAN Primary Care Provider Unava ilable Moreno [facility] Bal[facility] Attending Provider Moreno [facility] Baldev HARPER Attending Provider Valdez Manrique PA-C Emergency Provider Jimmy Donis DO Emergency Provider Chey Bliss MD Primary Care Provider DAISY DE LEON Attending Unavailable DAISY DE LEON Referring Unavailable CARLA RICO Referring Unavailable HOLLAND CHOWDARY, CARLA Attending Unavailable DAISY DE LEON Attending Unavailable Nory Aguilar NP Unavailable NO FAMILY, PHYSICIAN Primary Care Provider Unava ilable Valdez Manrique PA-C Emergency Provider [phone] Nory Uribe Primary Care Provider Nory Uribe Attending Provider NO FAMILY, PHYSICIAN Primary Care Provider Unava ilable Jimmy Donis DO Emergency Provider [phone] Valdez Manrique PA-C Emergency Provider Brandon GROCERY STORE BAGGER-C, Nory Primary Care Provider Brandon [employer] STORE BAGGER-C, Nory Attending Provider Gabi Mcclure DO Unavailable Chey Bliss MD Primary Care Provider Gabi Mcclure DO Unavailable Brandon [employer] STORE BAGGER-C, Nory Primary Care Provider Gabi Mcclure DO Attending Provider [phone] Fanny SPECIAL PROJECTS MANAGER-STUMP BLOWER, Kathryn Montano Attending Unavailable Fanny SPECIAL PROJECTS MANAGER-STUMP BLOWER, Kathryn Montano Attending Unavailable Jonathan Elizabeth DO Other Provider [...] Primary Care Unavailable Nory Aguilar Attending Unavailable Aguilar, Nory Admitting Unavailable Aguilar, Nory Primary Care Unavailable Jonathan Elizabeth Consulting Unavailable Gabi Mcclure Admitting Unavailab le Gabi Mcclure Attending Unavailab le Aguilar, Nory Primary Care Unavailable Kimos - Baldev FIERRO P Admitting Unavailable Kimos - Baldev FIERRO P Attending Unavailable NO FAMILY, PHYSICIAN Primary Care Unavailable NORY AGUILAR Attending Unavailable GABI MCCLURE Attending Unavailable CHEY BLISS Referring Unavailable JONATHAN ELIZABETH Attending Unavailable NADREAS SAMSON Attending Unavailable JENNIFER RENDON Attending Unavailable JENNIFER RENDON Attending Unavailable JENNIFER RENDON Attending Unavailable Allergies Allergy Classification Reported Allergen(s) Allergy Type Date of Onset Reaction(s) Facility (1 source) No Known Medication Allergies; Translations: [No Known Medication Allergies] Propensity to adverse reactions to drug (disorder) [facility] Repository Medications Current Medications Medication Drug Class(es) Dates Sig (Normalized) Sig (Original) acetaminophen 325 mg / HYDROcodone bitartrate 5 mg oral tablet (4 sources) Opioid Agonist Start: 10-08-2024 End: 10-13-2024 take 1 tablet by mouth every six hours for pain HYDROcodone-acetam inophen ([place]) 5-325 MG tablet Indications: Herpes genitalis in women Take 1 tablet by mouth every 6 (six) hours if needed for moderate pain or severe pain for up to 5 days 20 tablet 10/08/2024 10/13/2024 Active amoxicillin 500 mg oral capsule (2 sources) Penicillin-class Antibacterial Start: 05-28-2024 take 1 capsule by mouth twice daily azithromycin 500 mg oral tablet (11 sources) Macrolide Antimicrobial Start: 09-18-2024 take 1 [...] by mouth in the morning [place] FE 1/20 1-20 MG-MCG tablet Indications: control counseling Take [...] on above: Take 2 tablets by mo ut once daily. lamoTRIgine 100 mg oral tablet [...] not crush or chew. 90 capsule 3 10/14/2024 10/09/2025 Active vitamin b12 1 mg oral tablet (20 [...] (HCC) Please follow wean schedule provided via [employer] 168 tablet 02/07/2024 02/10/2024 Discontinued Start: 09-10-2023 [...] = total dose 150 mg twice daily ls-pl-kydg-FA-Ca carb-vit K (WOMEN'S MULTIVITAMIN) 18 mg-400 mcg- 500 mg-50 mcg tab (11 sources) Start: 10-27-2021 End: 02-01-2023 take 1 tablet by mouth once daily sj-xm-dujn-FA-Ca carb-vit K (WOMEN'S MULTIVITAMIN) 18 mg-400 mcg- 500 mg-50 mcg tab Indications: Juvenile myoclonic epilepsy, not intractable, with status epilepticus (HCC) Take 1 tablet by mouth once daily. 365 tablet 0 10/27/2021 02/01/2023 Discontinued (Course of therapy completed) Start: 10-27-2021 take 1 tablet by macho th once daily ow-gl-ootq-FA-Ca carb-vit K (WOMEN'S MULTIVITAMIN) 18 mg-400 mcg- 500 mg-50 mcg tab Indications: Juvenile myoclonic epilepsy, not intractable, with status epilepticus (HCC) Take 1 tablet by mouth once daily. 365 tablet 0 10/27/2021 Active Start: 10-27-2021 End: 10-27-2022 take 1 tablet by mouth once daily ho-th-ipsl-FA-Ca carb-vit K (WOMEN'S MULTIVITAMIN) 18 mg-400 mcg- 500 mg-50 mcg tab Indications: Juvenile myoclonic epilepsy, not intractable, with status epilepticus (HCC) Take 1 tablet by mouth once daily. 365 tablet 0 10/27/2021 10/27/2022 Active Start: 12-01-2020 End: 10-27-2021 take 1 tablet by mouth once daily my-hp-wkux-FA-Ca carb-vit K (WOMEN'S MULTIVITAMIN) 18 mg-400 mcg- 500 mg-50 mcg tab Indications: Juvenile myoclonic epilepsy, not intractable, with status epilepticus (HCC) Take 1 tablet by mouth once daily. 365 tablet 0 12/01/2020 10/27/2021 Discontinued Start: 12-01-2020 End: 12-01-2021 take 1 tablet by mouth once daily co-le-eykb-FA-Ca carb-vit K (WOMEN'S MULTIVITAMIN) 18 mg-400 mcg- 500 mg-50 mcg tab Indications: Juvenile myoclonic epilepsy, not intractable, with status epilepticus (HCC) Take 1 tablet by mouth once daily. 365 tablet 0 12/01/2020 12/01/2021 Active Comment on above: Take 1 tablet by macho th once daily. nitrofurantoin, macrocrystals 25 mg / nitrofurantoin, monohydrate 75 mg oral capsule (9 sources) Nitrofuran Antibacterial Start: 024 End: take 1 capsule by mouth every [...] (12 sources) Patient encounter status; Translations: [Other assisted (current) drug therapy] 12-16-2023 Episodic Inflammatory diseases [...] Test Name Value Interpretation Reference Range Facility OB TRANSVAGINALon [address] [place] [address] Ultrasound Report Signed Patient: QUENTIN BIRD MR#: [id number] : 2000 Acct:[id number] Age/Sex: 24 / F ADM Date: 11/27/24 Loc: US Attending Dr: Jonathan Elizabeth D.O. Ordering Physician: Jonathan Elizabeth D.O. Date of Service: 11/27/24 Procedure(s): US OB transvaginal Accession Number(s): [id number] cc: Jonathan Elizabeth D.O.; NORY AGUILAR NP [place] [id number] Patient Name: QUENTIN BIRD MRN: [id number] date: 2000 Sex: F Assigned Patient Location: US Current Patient Location: US Accession/Order Number: [id number] Exam Date: 11/27/2024 07:02 Report Date: 11/27/2024 07:52 At the request of: JONATHAN ELIZABETH DO Procedure: US OB transvaginal OB TRANSVAGINAL ULTRASOUND CLINICAL DATA: Missed menses and positive test. Transvaginal evaluation of the pelvis was performed. There is a gestational sac within the uterus. A yolk sac and pole are present. The crown-rump length measurement of 1.6 cm correlates with ultrasound age of 8 weeks 0 days. The estimated date of delivery is 07/09/2025. The hospitality job titles did not document cardiac activity. The hospitality job titles also raised question of the possibility of gastroschisis. The cervix is closed and measures approximately 3.7 cm in length. Both ovaries are seen. The right measures 4.4 x 2.6 x 2.7 cm . Left ovary measures 2.5 x 2.1 x 2.1 cm. There are 2 cystic areas within the right ovary. The larger measures 2.2 x 2.0 x 2.2 cm. There are tiny left ovarian follicles. There is documentation of ovarian blood flow. No free fluid is noted. US/US OB transvaginal IMPRESSION: POSSIBLE NONVIABLE 8 WEEK , DISCUSSED ABOVE. FOLLOW-UP WILL BE NEEDED. Impression dictated by: Elissa Dunaway M.D. 11/27/2024 7:52 AM Dictation Location: [place] [address] Electronically authenticated by: [id number] Y Date: 11/27/2024 07:52 Dictated By: Elissa Dunaway M.D. Signed By: 11/27/24 0755 DD/ 0752 TD/TT: Petroleum Refinery Laborer: [facility] Radiology, Radiologist, MD - 11/27/2024 [place] [address] Ultrasound Report Signed Patient: QUENTIN BIRD MR#: [id number] : 2000 Acct:[id number] Age/Sex: 24 / F ADM Date: 11/27/24 Loc: US Attending Dr: Jonathan Elizabeth D.O. Ordering Physician: Jonathan Elizabeth D.O. Date of Service: 11/27/24 Procedure(s): US OB transvaginal Accession Number(s): [id number] cc: Jonathan Elizabeth D.O.; NORY AGUILAR NP The [place] [address] Patient Name: QUENTIN BIRD MRN: [id number] date: 2000 Sex: F Assigned Patient Location: US Current Patient Location: US Accession/Order Number: [id number] Exam Date: 11/27/2024 07:02 Report Date: 11/27/2024 07:52 At the request of: JONATHAN ELIZABETH DO Procedure: US OB transvaginal OB TRANSVAGINAL ULTRASOUND CLINICAL DATA: Missed menses and positive test. Transvaginal evaluation of the pelvis was performed. There is a gestational sac within the uterus. A yolk sac and pole are present. The crown-rump length measurement of 1.6 cm correlates with ultrasound age of 8 weeks 0 days. The estimated date of delivery is 07/09/2025. The hospitality job titles did not document cardiac activity. The hospitality job titles also raised question of the possibility of gastroschisis. The cervix is closed and measures approximately 3.7 cm in length. Both ovaries are seen. The right measures 4.4 x 2.6 x 2.7 cm . Left ovary measures 2.5 x 2.1 x 2.1 cm. There are 2 cystic areas within the right ovary. The larger measures 2.2 x 2.0 x 2.2 cm. There are tiny left ovarian follicles. There is documentation of ovarian blood flow. No free fluid is noted. US/US OB transvaginal IMPRESSION: POSSIBLE NONVIABLE 8 WEEK , DISCUSSED ABOVE. FOLLOW-UP WILL BE NEEDED. Impression dictated by: Elissa Dunaway M.D. 11/27/2024 7:52 AM Dictation Location: [place] [address] Electronically authenticated by: [id number] Y Date: 11/27/2024 07:52 Dictated By: Elissa Dunaway M.D. Signed By: 11/27/24 0755 DD/ 075 TD/TT: Petroleum Refinery Laborer: [facility] Radiology Study observation (narrative) [facility] US OB TRANSVAGINALOrdered By : Radiologist Radiology on 11-27-2024 [facility] [employer] Work Phone: Choriogonadotropin.beta subu nit [Units/volume] in Serum or PlasmaOrdered By: Jonathan Elizabeth on 11-05-2024 HCG.beta subunit Qn 9118.00 m[IU]/mL [facility] Comment on above: Approximate Approxim ate hCG Gestational Age Range (mIU/ml) (weeks)0.2-1 5-50 1-2 50-500 2-3 100-5,000 3-4 500-10,000 4-5 1,000-50,000 5-6 10,000-100,000 6-8 15,000-200,000 8-12 10,000-100,000 HCG,Quantitativeon HCG,Quantitative 9118.00 m[iU]/mL Normal e [facility] Comment on above: Result Comment: Appr oximate Approximate hCG Gestational Age Range (mIU/ml) (weeks) 0.2-1 5-50 1-2 50-500 2-3 100-5,000 3-4 500-10,000 4-5 1,000-50,000 5-6 10,000-100,000 6-8 15,000-200,000 8-12 10,000-100,000 PERFORMED BY: [place] [address] PATHOLOGIST TEACHING ARTIST TAMAR VALIENTE M.D. Performed By: #### H CGQNT #### [facility] [address] [place] [address] Lamotrigine (Lamictal)on Lamotrigine (Lamictal) 3.9 Normal 2.0-20.0 e [facility] Comment on above: Result Comment: Dete ction Limit = 1.0 Performed at: [address] [id number] Laboratory Sample Carrier: Stanton Solorzano MD, Phone: [phone] Performed By: #### Z DONTAE, LAMOT ####[facility] , Zonisamideon 11-05-2024 Zonisamide 13.3 Normal 10.0-40.0 [facility] Comment on above: Result Comment: Dete ction Limit = 2.0 PERFORMED BY: [facility] [place] [address] PATHOLOGIST TEACHING ARTIST TAMAR VALIENTE M.D. Performed By: #### Z DONTAE, LAMOT ####[facility] , hCG, quantitative, on 11-05-2024 HCG,QUANTITATIVE 9118 m[iU]/mL [facility] Comment on above: Approximate Approxim ate hCG Gestational Age Range (mIU/ml) (weeks) 0.2-1 5-50 1-2 50-500 2-3 100-5,000 3-4 500-10,000 4-5 1,000-50,000 5-6 10,000-100,000 6-8 15,000-200,000 8-12 10,000-100,000 [facility] HERPES SIMPLEX VIRUS 1/2 DNA PCRon 10-09-2024 HSV-1 DNA Negative Negative [facility] Comment on above: This test was develo ped and its performance characteristics determined by [facility]. It has not been cleared or approved by the Food and Drug Administration. HSV-2 DNA Positive Abnormal Negative [facility] Comment on above: This test was develo ped and its performance characteristics determined by [facility]. It has not been cleared or approved by the Food and Drug Administration. Performed at: [address] [id number] Laboratory Sample Carrier: Stanton Solorzano MD, Phone: [phone] Interpretation and review of laboratory results Abnormal [facility] RECURRENT VAGINITIS (HTRX)on 10-07-2024 HERPES SIMPLEX VIRUS 1 0 NO [facility] HERPES SIMPLEX VIRUS 1 Not detected [facility] HERPES SIMPLEX VIRUS 2 17.77 Abnormal NO [facility] HERPES SIMPLEX VIRUS 2 Detected Abnormal NO [facility] Interpretation and review of laboratory results Abnormal [facility] RECURRENT VAGINITIS (HTRX)on 09-18-2024 ATOPOBIUM VAGINAE 16.81 Abnormal [facility] ATOPOBIUM VAGINAE Detected Abnormal [facility] BVAB 2,3 (BACTERIAL VAGINOSIS ASSOCIATED BACTERIA 2, 3); MOBILUNCUS SPP 27.699 Abnormal [facility] BVAB 2,3 (BACTERIAL VAGINOSIS ASSOCIATED BACTERIA 2, 3); MOBILUNCUS SPP Detected Abnormal [facility] CHA ALBICANS, PARAPSILOSIS, TROPICALIS 29.592 Abnormal [facility] CHA ALBICANS, PARAPSILOSIS, TROPICALIS Detected Abnormal [facility] Healthcare CHA GLABRATA 0 [facility] Healthcare CHA GLABRATA Not detected [facility] CHA KRUSEI 0 [facility] Healthcare CHA KRUSEI Not detected [facility] CHLAMYDIA TRACHOMATIS 0 [facility] S [facility] CHLAMYDIA TRACHOMATIS Not detected N S [facility] ERMB, C; MEFA 20.526 Abnormal [facility] Healthcare ERMB, C; MEFA Detected Abnormal [facility] Healthcare GARDNERELLA VAGINALIS 20.662 Abnormal [facility] GARDNERELLA VAGINALIS Detected Abnormal [facility] Interpretation and review of laboratory results Abnormal [facility] MEGASPHAERA (TYPES 1, 2) 0 [facility] MEGASPHAERA (TYPES 1, 2) Not detected [facility] MYCOPLASMA GENITALIUM 25.331 Abnormal [facility] MYCOPLASMA GENITALIUM Detected Abnormal [facility] S [facility] NEISSERIA GONORRHOEAE 0 [facility] S [facility] NEISSERIA GONORRHOEAE Not detected N [facility] TET B, TET M 18.96 Abnormal [facility] TET B, TET M Detected Abnormal [facility] TRICHOMONAS VAGINALIS 0 [facility] S [facility] TRICHOMONAS VAGINALIS Not detected N [facility] HIV AB/P24 AG WITH REFLEXon 09-17-2024 HIV AB/P24 AG SCREEN Non-Reactive Non Reactive [facility] Comment on above: HIV-1/HIV-2 antibodi es and HIV-1 p24 antigen were NOT detected. There is no laboratory evidence of HIV infection. HIV Negative Performed at: - [address] [id number] Laboratory Sample Carrier: Dudley DelR io PhD, Phone: [phone] [facility] Trep Abon 09-08-2024 Treponema Total Ab 0.16 Normal [facility] Comment on above: Performed By: #### C D:[id number] #### [facility] [address] [place] [address] Treponema Total Ab Interp Negative Normal Negative [facility] Comment on above: Result Comment: No s erologic evidence of syphilis. No follow-up necessary unless clinically indicated (eg, early syphilis). Performed By: #### C D:[id number] #### [address] [address] Ambulatory Clinical Summaryo n 09-07-2024 Ambulatory Clinical [...] portal account set up, please contact the [place] Patient Portal Help Line at . If [...] in female without diagnosis Dysuria Tests Performed/Pending [address]2676 AMB Urine Chemistry Analysis POC Your Care [...] signed by KRIS 09.07.2024 14:11 EDT Normal [facility] OR Trackon 09-07-2024 Specimens Received From [facility] Normal [facility] Comment on above: Performed By: #### O [facility] Tracking Order #### [facility] [address] [place] [address] Urgent Care Office/Clinic No roxanna 09-07-2024 Urgent Care Office/Clinic Note Chief Complaint pt states she would like std testing. denies symptoms History of Present Illness Patient is a 23-year-old female who presents today for STD testing. She states she denies any symptoms at all including urinary frequency, burning with urination, back pain, fever, nausea, vomiting. She was just seen at the [facility] within the last week and due to ongoing vaginal discharge was tested for trichomonas different forms of candidiasis, Gardnerella, gonorrhea, chlamydia and a couple other items. She came back negative for all of these items and is following up with her [employer] [facility] regarding this. She states that there was [...] and all of the items that the [employer] [facility] tested for and all were negative. Today [...] screening: [facility] [place] [phone] Medical Decision Making Chronic conditions NOT treated [...] Urine Dipstick Clear 09/07/2024 13:46 EDT Specific [place] Urine Dipstick 1.010 09/07/2024 13:46 EDT pH [...] 13:46 EDT Electronically signed by Fanny PALOMINO Kathrynellie Montano 09/07/24 14:07 EDT Syphilis testing is negative. Electronically signed by Jasmin Phan PA-C 09/09/24 07:36 EDT Normal [facility] RECURRENT VAGINITIS (HTRX)on 08-27-2024 ATOPOBIUM VAGINAE 27.692 Abnormal [facility] ATOPOBIUM VAGINAE Detected Abnormal [facility] BVAB 2,3 (BACTERIAL VAGINOSIS ASSOCIATED BACTERIA 2, 3); MOBILUNCUS SPP 0 [facility] BVAB 2,3 (BACTERIAL VAGINOSIS ASSOCIATED BACTERIA 2, 3); MOBILUNCUS SPP Not detected [facility] CHA ALBICANS, PARAPSILOSIS, TROPICALIS 0 [facility] CHA ALBICANS, PARAPSILOSIS, TROPICALIS Not detected [facility] [...] Healthcare ECH echo transthoracicon ECH echo transthoracic [facility] [place] [address] Echocardiogram Signed Patient: Quentin Bird MR#: [id number] : 2000 Acct:[id number] Age/Sex: 23 / F ADM Date: 05/18/24 Loc: Room: Type: [facility] Attending Dr: Nory Aguilar GROCERY STORE BAGGER-C Ordering Provider: Nory Aguilar CNP Date of Service: 05/18/24/ ECH/ECH echo transthoracic: tachycardia, abnormal EKG Copies to: MD Nory Ordonez [facility] Patient Location: : 2000 Gender: Female (MM/DD/YYYY) [...] : Transcribed By: HEATHER Performed At: 05/18/24 1194 Signed By: Hannah Rajan MD 05/18/24 2227 Normal [facility] Alanine aminotransferase [En zymatic activity/volume] in Serum or PlasmaOrdered By: Nory Aguilar on 04-20-2024 ALT [Catalytic activity/Vol] Alanine aminotransferase [Enzymatic activity/volume] in Serum or Plasma 7-52 [facility] Albumin [Mass/volume] in Ser um or Plasma by Bromocresol green (BCG) dye binding methoOrdered By: Nory Aguilra on 04-20-2024 Albumin BCG dye [Mass/Vol] Albumin [Mass/volume] in Serum or Plasma by Bromocresol green (BCG) dye binding metho 3.5-5.7 [facility] Alkaline phosphatase [Enzyma tic activity/volume] in Serum or PlasmaOrdered By: Nory Aguilar on 04-20-2024 ALP [Catalytic activity/Vol] Alkaline phosphatase [Enzymatic activity/volume] in Serum or Plasma 34-104 [facility] Aspartate aminotransferase [ Enzymatic activity/volume] in Serum or PlasmaOrdered By: Nory Aguilar on 04-20-2024 AST [Catalytic activity/Vol] Aspartate aminotransferase [Enzymatic activity/volume] in Serum or Plasma 13-39 [facility] Basophils Auto (Bld) [#/Vol] Ordered By: Nory Aguilar on 04-20-2024 Basophils (Bld) [#/Vol] Automated basoph il count 0.0-0.2 [facility] Basophils/100 WBC Auto (Bld) Ordered By: Nory Aguilar on 04-20-2024 Basophils/100 WBC (Bld) Automated basophil % . [facility] Bilirubin.total [Mass/volume ] in Serum or PlasmaOrdered By: Nory Aguilar on 04-20-2024 Bilirubin [Mass/Vol] Bilirubin.total [Mass/volume] in Serum or Plasma 0.3-1.0 [facility] CBC W Auto Differential pane l (Bld)on 04-20-2024 Basophils (Bld) [#/Vol] 0 10*3/uL 0.0 - 0.2 10*3/uL [facility] Basophils/100 WBC Manual cnt (Syn fld) 0.2 % . [facility] Eosinophils (Bld) [#/Vol] 0.2 10*3/uL 0.0 - 0.45 10*3/uL [facility] Eosinophils/100 WBC Manual cnt (Syn fld) 2 % . [facility] Erythrocyte distribution width (RBC) [Ratio] 13.1 % 11.9 - 15.3 % [facility] Hematocrit (Bld) [Volume fraction] 40.7 % 34.0 - 46.4 % [facility] Hemoglobin (Bld) [Mass/Vol] 14 g/dL 11.8 - 15.4 g/dL [facility] Lymphocytes (Bld) [#/Vol] 1.5 10*3/uL 1.00 - 4.8 10*3/uL [facility] Lymphocytes/100 WBC Manual cnt (Syn fld) 18.3 % . [facility] MCH (RBC) [Entitic mass] 32.2 pg 24.7 - 34.3 pg [facility] MCHC (RBC) [Mass/Vol] 34.5 g/dL 32.0 - 35.0 g/dL [facility] MCV (RBC) [Entitic vol] 93.2 fL 80 - 100 fL [facility] Monocytes (Bld) [#/Vol] 0.6 10*3/uL 0.0 - 0.8 10*3/uL [facility] Monocytes+Macrophages/1 00 WBC Manual cnt (Syn fld) 7.7 % . [facility] Neutrophils (Bld) [#/Vol] 5.8 10*3/uL 1.8 - 7.7 10*3/uL [facility] Neutrophils/100 WBC Manual cnt (Syn fld) 71.8 % . [facility] NRBC 0 /100{WBC} 0 - 0.5 /100{WBC} [facility] Platelet mean volume (Bld) [Entitic vol] 7.9 fL 6.3 - 10.7 fL [facility] Platelets (Bld) [#/Vol] 311 10*3/uL 150 - 450 10*3/uL [facility] RBC LM.HPF (Urine sed) [#/Area] 4.36 10*6/uL 3.60 - 5.00 10*6/uL [facility] WBC (Bld) [#/Vol] 8.1 10*3/uL 3.8 - 11.6 10*3/uL [facility] WBC LM.HPF (Urine sed) [#/Area] 8.1 10*3/uL 3.8 - 11.6 10*3/uL [facility] Calcium [Mass/volume] in Ser um or PlasmaOrdered By: Nory Aguilar on 04-20-2024 Calcium [Mass/Vol] Calcium [Mass/volume ] in Serum or Plasma 8.6-10.3 [facility] Carbon dioxide, total [Moles /volume] in Serum or PlasmaOrdered By: Nory Aguilar on 04-20-2024 CO2 [Moles/Vol] Carbon dioxide, tota l [Moles/volume] in Serum or Plasma 21.0-31.0 [facility] Chloride [Moles/volume] in S benedicto or PlasmaOrdered By: Nory Aguilar on 04-20-2024 Chloride [Moles/Vol] Chloride [Moles/volume] in Serum or Plasma 98-107 [facility] Cholesterol [Mass/volume] in Serum or PlasmaOrdered By: Nory Aguilar on 04-20-2024 Cholesterol [Mass/Vol] Cholesterol [Mass/volume] in Serum or Plasma 140-200 [facility] Comment on above: Chol less than 200 m g/dl low riskChol 201-239 mg/dl borderline riskChol 240 mg/dl and greater high risk Cholesterol in HDL [Mass/vol ume] in Serum or PlasmaOrdered By: Nory Aguilar on 04-20-2024 Cholesterol in HDL [Mass/Vol] Serum or plasma high density lipoprotein (HDL) cholesterol measurement 23-92 [facility] Comment on above: HDL CHOL ATP-III CLA SSIFICATION Cardiovascular RiskHDL > or equal to 60 mg/dL LOWHDL < 40 mg/dL HIGH Cholesterol in LDL Calc [Mas s/Vol]Ordered By: Nory Aguilar on 04-20-2024 Cholesterol in LDL [Mass/Vol] Cholesterol in LDL [Mass/volume] in Serum or Plasma by calculation 0-100 [facility] Comment on above: LDL ATP III CLASSIFI CATIONLDL less than 100 mg/dL OptimalLDL 100-129 mg/dL Near or above optimalLDL 130-159 mg/dL Borderline highLDL 160-189 mg/dL HighLDL greater than 189 mg/dL Very high Cholesterol in VLDL Calc [Ma ss/Vol]Ordered By: Nory Aguilar on 04-20-2024 Cholesterol in VLDL [Mass/Vol] Cholesterol in VLDL [Mass/volume] in Serum or Plasma by calculation [facility] Complete Blood Count Auto Di ffon 04-20-2024 Basophils (Bld) [#/Vol] 0.0 10*3/uL Normal 0.0-0.2 [facility] Comment on above: Result Comment: PERF ORMED BY: [facility] [address] [place] [address] PATHOLOGIST TEACHING ARTIST KIRBY BARRIENTOS M.D. Performed By: #### L IPID, TSH3, CMP, T4F, CBC ####[address] Basophils/100 WBC (Bld) 0.2 % Normal . [facility] Comment on above: Performed By: #### L IPID, TSH3, CMP, T4F, CBC ####[address] Eosinophils (Bld) [#/Vol] 0.2 10*3/uL Normal 0.0-0.45 [facility] Comment on above: Performed By: #### L IPID, TSH3, CMP, T4F, CBC ####[address] Eosinophils/100 WBC (Bld) 2.0 % Normal . [facility] Comment on above: Performed By: #### L IPID, TSH3, CMP, T4F, CBC ####[address] Erythrocyte distribution width (RBC) [Ratio] 13.1 % Normal 11.9-15.3 [facility] Comment on above: Performed By: #### L IPID, TSH3, CMP, T4F, CBC ####[address] Hematocrit (Bld) [Volume fraction] 40.7 % Normal 34.0-46.4 [facility] Comment on above: Performed By: #### L IPID, TSH3, CMP, T4F, CBC ####[address] Hemoglobin (Bld) [Mass/Vol] 14.0 g/dL Normal 11.8-15.4 [facility] Comment on above: Performed By: #### L IPID, TSH3, CMP, T4F, CBC ####[address] Lymphocytes (Bld) [#/Vol] 1.5 10*3/uL Normal 1.00-4.8 [facility] Comment on above: Performed By: #### L IPID, TSH3, CMP, T4F, CBC ####[address] Lymphocytes/100 WBC (Bld) 18.3 % Normal . [facility] Comment on above: Performed By: #### L IPID, TSH3, CMP, T4F, CBC ####[address] MCH (RBC) [Entitic mass] 32.2 pg Normal 24.7-34.3 [facility] Comment on above: Performed By: #### L IPID, TSH3, CMP, T4F, CBC ####[address] MCV (RBC) [Entitic vol] 93.2 fL Normal 80-100 [facility] Comment on above: Performed By: #### L IPID, TSH3, CMP, T4F, CBC ####[address] Mean Corpuscular HGB Conc 34.5 g/dL Normal 32.0-35.0 [facility] Comment on above: Performed By: #### L IPID, TSH3, CMP, T4F, CBC ####[address] Monocytes (Bld) [#/Vol] 0.6 10*3/uL Normal 0.0-0.8 [facility] Comment on above: Performed By: #### L IPID, TSH3, CMP, T4F, CBC ####[address] Monocytes/100 WBC (Bld) 7.7 % Normal . [facility] Comment on above: Performed By: #### L IPID, TSH3, CMP, T4F, CBC ####[address] Neutrophils (Bld) [#/Vol] 5.8 10*3/uL Normal 1.8-7.7 [facility] Comment on above: Performed By: #### L IPID, TSH3, CMP, T4F, CBC ####[address] Neutrophils/100 WBC (Bld) 71.8 % Normal . [facility] Comment on above: Performed By: #### L IPID, TSH3, CMP, T4F, CBC ####[address] NRBC% 0.0 /100{WBC} Normal 0-0.5 [facility] Comment on above: Performed By: #### L IPID, TSH3, CMP, T4F, CBC ####[address] Platelet mean volume (Bld) [Entitic vol] 7.9 fL Normal 6.3-10.7 [facility] Comment on above: Performed By: #### L IPID, TSH3, CMP, T4F, CBC ####[address] Platelets (Bld) [#/Vol] 311 10*3/uL Normal 150-450 [facility] Comment on above: Performed By: #### L IPID, TSH3, CMP, T4F, CBC ####[address] RBC (Bld) [#/Vol] 4.36 10*6/uL Normal 3.60-5.00 [facility] Comment on above: Performed By: #### L IPID, TSH3, CMP, T4F, CBC ####[address] WBC (Bld) [#/Vol] 8.1 10*3/uL Normal 3.8-11.6 [facility] Comment on above: Performed By: #### L IPID, TSH3, CMP, T4F, CBC ####[address] Comprehensive Metabolic Pane bridger 04-20-2024 Albumin [Mass/Vol] 4.9 g/dL Normal 3.5-5.7 [facility] Comment on above: Performed By: #### L IPID, TSH3, CMP, T4F, CBC ####[address] Albumin/Globulin [Mass ratio] 2.0 {ratio} Normal [facility] Comment on above: Performed By: #### L IPID, TSH3, CMP, T4F, CBC ####[address] ALP [Catalytic activity/Vol] 95 U/L Normal 34-104 [facility] Comment on above: Performed By: #### L IPID, TSH3, CMP, T4F, CBC ####[address] ALT [Catalytic activity/Vol] 9 U/L Normal 7-52 [facility] Comment on above: Performed By: #### L IPID, TSH3, CMP, T4F, CBC ####[address] Anion gap [Moles/Vol] 12.5 mmol/L Normal 6.0-15.0 [facility] Comment on above: Performed By: #### L IPID, TSH3, CMP, T4F, CBC ####[address] AST [Catalytic activity/Vol] 16 U/L Normal 13-39 [facility] Comment on above: Performed By: #### L IPID, TSH3, CMP, T4F, CBC ####[address] Bilirubin [Mass/Vol] 0.4 mg/dL Normal 0.3-1.0 [facility] Comment on above: Performed By: #### L IPID, TSH3, CMP, T4F, CBC ####[address] Calcium [Mass/Vol] 9.7 mg/dL Normal 8.6-10.3 [facility] Comment on above: Performed By: #### L IPID, TSH3, CMP, T4F, CBC ####[address] Chloride [Moles/Vol] 107 mmol/L Normal 98-107 [facility] Comment on above: Performed By: #### L IPID, TSH3, CMP, T4F, CBC ####[address] CO2 [Moles/Vol] 22.8 mmol/L Normal 21.0-31.0 [facility] Comment on above: Performed By: #### L IPID, TSH3, CMP, T4F, CBC ####[address] Creatinine [Mass/Vol] 0.90 mg/dL Normal 0.60-1.20 [facility] Comment on above: Performed By: #### L IPID, TSH3, CMP, T4F, CBC ####[address] GFR/1.73 sq M.predicted MDRD (S/P/Bld) [Vol rate/Area] mL/min/{1.73_m2} Normal [facility] Comment on above: Performed By: #### L IPID, TSH3, CMP, T4F, CBC ####[address] Globulin (S) [Mass/Vol] 2.5 g/dL Normal [facility] Comment on above: Performed By: #### L IPID, TSH3, CMP, T4F, CBC ####[address] [place] [address] [facility] Glucose [Mass/Vol] 88 mg/dL Normal 70-100 [facility] Comment on above: Result Comment: [place] Glucose Reference Range is dependent on time and content of last meal. Glucose of more than 200 mg/dL in a nonstressed, ambulatory subject supports the diagnosis of Diabetes Mellitus. ADA recommended reference range Performed By: #### L IPID, TSH3, CMP, T4F, CBC ####[address] [place] [address] [facility] Potassium [Moles/Vol] 4.3 mmol/L Normal 3.5-5.1 [facility] Comment on above: Performed By: #### L IPID, TSH3, CMP, T4F, CBC ####[address] [address] [facility] Protein [Mass/Vol] 7.4 g/dL Normal 6.4-8.9 [facility] Comment on above: Performed By: #### L IPID, TSH3, CMP, T4F, CBC ####[address] [address] [facility] Sodium [Moles/Vol] 138 mmol/L Normal 136-145 [facility] Comment on above: Performed By: #### L IPID, TSH3, CMP, T4F, CBC ####[address] [address] [place] Urea nitrogen [Mass/Vol] 7 mg/dL Normal 7-25 [facility] Comment on above: Performed By: #### L IPID, TSH3, CMP, T4F, CBC ####[address] [address] [place] Creatinine [Mass/volume] in Serum or PlasmaOrdered By: Nory Aguilar on 04-20-2024 Creatinine [Mass/Vol] Creatinine [Mass/volume] in Serum or Plasma 0.60-1.20 [facility] ECG 12 lead ECGon 04-20-2024 ECG 12 lead ECG [facility] [address] [place] [address] Electrocardiograph Report Signed Patient: Quentin Bird MR#: [id number] : 2000 Acct:[id number] Age/Sex: 23 / F ADM Date: 04/20/24 Loc: Room: Type: [facility] Attending Dr: Nory Aguilar [employer] Ordering Provider: Nory Aguilar CNP Date of [...] infarct Abnormal ECG Confirmed by Hannah Rajan ([id number]) on 04/20/2024 6:37:52 PM Referred By: Electronically Signed By: Hannah Rajan Transcribed By: MUS Signed By Hannah Rajan MD 5 1837 Normal [facility] Eosinophils Auto (Bld) [#/Vo l]Ordered By: Nory Aguilar on 04-20-2024 Eosinophils (Bld) [#/Vol] Automated eosinophil count 0.0-0.45 [facility] Eosinophils/100 WBC Auto (Bl d)Ordered By: Nory Aguilar on 04-20-2024 Eosinophils/100 WBC (Bld) Automated eosinophil % . [facility] Erythrocyte distribution wid th Auto (RBC) [Ratio]Ordered By: Nory Aguilar on 04-20-2024 Erythrocyte distribution width (RBC) [Ratio] Erythrocyte distribution width [Ratio] by Automated count 11.9-15.3 [facility] Free T4 (Free Thyroxine)on 0 04-20-2024 Free T4 [Mass/Vol] 0.75 ng/dL Normal 0.61-1.12 [facility] Comment on above: Performed By: #### L IPID, TSH3, CMP, T4F, CBC ####[facility] [id number] [place] [address] [place] Globulin Calc (S) [Mass/Vol] Ordered By: Nory Aguilar on 04-20-2024 Globulin (S) [Mass/Vol] Serum globulin measurement by calculation (mass/volume) [facility] Glucose [Mass/volume] in Ser um or PlasmaOrdered By: Nory Aguilar on 04-20-2024 Glucose [Mass/Vol] Glucose [Mass/volume ] in Serum or Plasma 70-100 [facility] Comment on above: ADA recommended refe rence rangeRandom Glucose Reference Range is dependent on time and content of last meal. Glucose of more than 200 mg/dL in a nonstressed, ambulatory subject supports the diagnosis of Diabetes Mellitus. Hematocrit Auto (Bld) [Volum e fraction]Ordered By: Nory Aguilar on 04-20-2024 Hematocrit (Bld) [Volume fraction] Hematocrit [Volume Fraction] of Blood by Automated count 34.0-46.4 [facility] Hemoglobin [Mass/volume] in BloodOrdered By: Nory Aguilar on 04-20-2024 Hemoglobin (Bld) [Mass/Vol] Hemoglobin [Mass/volume] in Blood 11.8-15.4 [facility] Leukocytes [#/volume] correc chandan for nucleated erythrocytes in Blood by Automated counOrdered By: Nory Aguilar on 04-20-2024 WBC corrected for nucl RBC Auto (Bld) [#/Vol] Leukocytes [#/volume] corrected for nucleated erythrocytes in Blood by Automated coun 3.8-11.6 [facility] Lipid Panelon 04-20-2024 Cholesterol [Mass/Vol] 155 mg/dL Normal 140-200 [facility] Comment on above: Result Comment: Chol less than 200 mg/dl low risk Chol 201-239 mg/dl borderline risk Chol 240 mg/dl and greater high risk Performed By: #### L IPID, TSH3, CMP, T4F, CBC ####[facility] [id number] [place] [address] [facility] Cholesterol in HDL [Mass/Vol] 62 mg/dL Normal 23-92 [facility] Comment on above: Result Comment: HDL CHOL ATP-III CLASSIFICATION Cardiovascular Risk HDL > or equal to 60 mg/dL LOW HDL < 40 mg/dL HIGH Performed By: #### L IPID, TSH3, CMP, T4F, CBC ####[facility] [place] [address] [facility] Cholesterol.total/Nayeli sterol in HDL [Mass ratio] 2.5 {ratio} Normal <5.0 [facility] Comment on above: Performed By: #### L IPID, TSH3, CMP, T4F, CBC ####[address] [place] [id number] [facility] LDL Cholesterol,Calculated 71 mg/dL Normal 0-100 [facility] Comment on above: Result Comment: LDL ATP III CLASSIFICATION LDL less than 100 mg/dL Optimal LDL 100-129 mg/dL Near or above optimal LDL 130-159 mg/dL Borderline high LDL 160-189 mg/dL High LDL greater than 189 mg/dL Very high Performed By: #### L IPID, TSH3, CMP, T4F, CBC ####[address] [place] [id number] [facility] Triglyceride w/Reflex 112 mg/dL Normal 0-149 [facility] Comment on above: Result Comment: TRIG ATP III CLASSIFICATION TRIG less than 150 mg/dL Normal TRIG 150-199 mg/dL Borderline high TRIG 200-500 mg/dL High TRIG greater than 500 mg/dL Very high Standard traceable to the Center for Disease Conrtrol and Prevention (CDC) test method. Performed By: #### L IPID, TSH3, CMP, T4F, CBC ####[address] [place] [id number] [facility] VLDL CHOLESTEROL 22 mg/dL Normal [facility] Comment on above: Performed By: #### L IPID, TSH3, CMP, T4F, CBC ####[address] [place] [id number] [facility] Lymphocytes Auto (Bld) [#/Vo l]Ordered By: Nory Aguilar on 04-20-2024 Lymphocytes (Bld) [#/Vol] Lymphocytes [#/volume] in Blood by Automated count 1.00-4.8 [facility] Lymphocytes/100 WBC Auto (Bl d)Ordered By: Nory Aguilar on 04-20-2024 Lymphocytes/100 WBC (Bld) Lymphocytes/100 leukocytes in Blood by Automated count . [facility] MCH Auto (RBC) [Entitic mass ]Ordered By: Nory Aguilar on 04-20-2024 MCH (RBC) [Entitic mass] MCH [Entitic mass] by Automated count 24.7-34.3 [facility] MCHC Auto (RBC) [Mass/Vol]Or dered By: Nory Aguilar on 04-20-2024 MCHC (RBC) [Mass/Vol] MCHC [Mass/volume] by Automated count 32.0-35.0 [facility] MCV Auto (RBC) [Entitic vol] Ordered By: Nory Aguilar on 04-20-2024 MCV (RBC) [Entitic vol] MCV [Entitic vol ume] by Automated count 80-100 [facility] Monocytes Auto (Bld) [#/Vol] Ordered By: Nory Aguilar on 04-20-2024 Monocytes (Bld) [#/Vol] Automated blood monocyte count 0.0-0.8 [facility] Monocytes/100 WBC Auto (Bld) Ordered By: Nory Aguilar on 04-20-2024 Monocytes/100 WBC (Bld) Automated monocyte % . [facility] Neutrophils Auto (Bld) [#/Vo l]Ordered By: Nory gAuilar on 04-20-2024 Neutrophils (Bld) [#/Vol] Neutrophils [#/volume] in Blood by Automated count 1.8-7.7 [facility] Neutrophils/100 WBC Auto (Bl d)Ordered By: Nory Aguilar on 04-20-2024 Neutrophils/100 WBC (Bld) Automated neutrophil % . [facility] No Panel InformationOrdered By: Nory Aguilar on 04-20-2024 Estimated GFR (CKD-EPI) > 60.0 mL/Min [facility] Creatinine Clearance (Chem N/A [facility] Nucleated erythrocytes [Pres ence] in Blood by Automated countOrdered By: Nory Aguilar on 04-20-2024 Nucleated RBC Auto Ql (Bld) Nucleated erythrocytes [Presence] in Blood by Automated count 0-0.5 [facility] Platelet mean volume Auto (B ld) [Entitic vol]Ordered By: Nory Aguilar on 04-20-2024 Platelet mean volume (Bld) [Entitic vol] Platelet mean volume [Entitic volume] in Blood by Automated count 6.3-10.7 [facility] Platelets Auto (Bld) [#/Vol] Ordered By: Nory Aguilar on 04-20-2024 Platelets (Bld) [#/Vol] Platelets [#/vol ume] in Blood by Automated count 150-450 [facility] Potassium [Moles/volume] in Serum or PlasmaOrdered By: Nory Aguilar on 04-20-2024 Potassium [Moles/Vol] Potassium [Moles/volume] in Serum or Plasma 3.5-5.1 [facility] Protein [Mass/volume] in Ser um or PlasmaOrdered By: Nory Aguilar on 04-20-2024 Protein [Mass/Vol] Protein [Mass/volume ] in Serum or Plasma 6.4-8.9 [facility] RBC Auto (Bld) [#/Vol]Ordere d By: Nory Aguilar on 04-20-2024 RBC (Bld) [#/Vol] Erythrocytes [#/volume] in Blood by Automated count 3.60-5.00 [facility] Serum or plasma albumin/glob ulin mass ratioOrdered By: Nory Aguilar on 04-20-2024 Albumin/Globulin [Mass ratio] Serum or plasma albumin/globulin mass ratio [facility] Serum or plasma anion gap de terminationOrdered By: Nory Aguilar on 04-20-2024 Anion gap [Moles/Vol] Serum or plasma an ion gap determination 6.0-15.0 [facility] Serum or plasma total choles terol/high density lipoprotein (HDL) cholesterol mass ratOrdered By: Nory Aguilar on 04-20-2024 Cholesterol.total/Nayeli sterol in HDL [Mass ratio] Serum or plasma total cholesterol/high density lipoprotein (HDL) cholesterol mass rat <5.0 [facility] Sodium [Moles/volume] in Ser um or PlasmaOrdered By: Nory Aguilar on 04-20-2024 Sodium [Moles/Vol] Sodium [Moles/volume ] in Serum or Plasma 136-145 [facility] Thyroid Stimulating Hormoneo n 04-20-2024 TSH Qn 0.63 m[IU]/L Normal 0.45-5.33 [facility] Comment on above: Result Comment: PERF ORMED BY: [facility] [address] [place] [address] PATHOLOGIST TEACHING ARTIST KIRBY BARRIENTOS M.D. Performed By: #### L IPID, TSH3, CMP, T4F, CBC ####[facility] [id number] [place] [address] [facility] Thyrotropin [Units/volume] i n Serum or PlasmaOrdered By: Nory Aguilar on 04-20-2024 TSH Qn Thyrotropin [Units/volume] in Serum or Plasma 0.45-5.33 [facility] Thyroxine (T4) free [Mass/vo lume] in Serum or PlasmaOrdered By: Nory Aguilar on 04-20-2024 Free T4 [Mass/Vol] Thyroxine (T4) free [Mass/volume] in Serum or Plasma 0.61-1.12 [facility] Triglyceride [Mass/volume] i n Serum or PlasmaOrdered By: Nory Aguilar on 04-20-2024 Triglyceride [Mass/Vol] Triglyceride [Mass/volume] in Serum or Plasma 0-149 [facility] Comment on above: TRIG ATP III CLASSIF ICATIONTRIG less than 150 mg/dL NormalTRIG 150-199 mg/dL Borderline highTRIG 200-500 mg/dL High TRIG greater than 500 mg/dL Very highStandard traceable to the Center for Disease Conrtrol and Prevention (CDC) test method. Urea nitrogen [Mass/volume] in Serum or PlasmaOrdered By: Nory Aguilar on 04-20-2024 Urea nitrogen [Mass/Vol] Urea nitrogen [Mass/volume] in Serum or Plasma 7-25 [facility] WBC Auto (Bld) [#/Vol]Ordere d By: Nory Aguilar on 04-20-2024 WBC (Bld) [#/Vol] Leukocytes [#/volume ] in Blood by Automated count 3.8-11.6 [facility] Alanine aminotransferase [En zymatic activity/volume] in Serum or PlasmaOrdered By: Valdez Manrique on 03-16-2024 ALT [Catalytic activity/Vol] Alanine aminotransferase [Enzymatic activity/volume] in Serum or Plasma 7-52 [facility] Albumin [Mass/volume] in Ser um or Plasma by Bromocresol green (BCG) dye binding methoOrdered By: Valdez Manrique on 03-16-2024 Albumin BCG dye [Mass/Vol] Albumin [Mass/volume] in Serum or Plasma by Bromocresol green (BCG) dye binding metho 3.5-5.7 [facility] Alkaline phosphatase [Enzyma tic activity/volume] in Serum or PlasmaOrdered By: Valdez Manrique on 03-16-2024 ALP [Catalytic activity/Vol] Alkaline phosphatase [Enzymatic activity/volume] in Serum or Plasma 34-104 [facility] Appearance of UrineOrdered B y: Valdez Manrique on 03-16-2024 Appearance (U) Urine appearance Clear [facility] Aspartate aminotransferase [ Enzymatic activity/volume] in Serum or PlasmaOrdered By: Valdez Manrique on 03-16-2024 AST [Catalytic activity/Vol] Aspartate aminotransferase [Enzymatic activity/volume] in Serum or Plasma 13-39 [facility] Bacteria [Presence] in Urine by AutomatedOrdered By: Valdez Manrique on 03-16-2024 Bacteria Auto Ql (U) Bacteria [Presence] in Urine by Automated None Seen [facility] Basophils Auto (Bld) [#/Vol] Ordered By: Valdez Manrique on 03-16-2024 Basophils (Bld) [#/Vol] Automated basoph il count 0.0-0.2 [facility] Basophils/100 WBC Auto (Bld) Ordered By: Valdez Manrique 03-16-2024 Basophils/100 WBC (Bld) Automated basophil % . [facility] Bilirubin Test strip Ql (U)O rdered By: Valdez Manrique on 03-16-2024 Bilirubin Ql (U) Bilirubin.total [Presence] in Urine by Test strip Negative [facility] Bilirubin.total [Mass/volume ] in Serum or PlasmaOrdered By: Valdez Manrique on 03-16-2024 Bilirubin [Mass/Vol] Bilirubin.total [Mass/volume] in Serum or Plasma 0.3-1.0 [facility] COVID Cepheid NegativeOrdere d By: Valdez Manrique on 03-16-2024 SARS-CoV-2 (COVID-19) Ab IA Ql COVID Cepheid Negative [facility] Comment on above: This is a [...] or Cepheid Disclaimer revoked sooner. PERFORMED BY: [place] [address] PATHOLOGIST TEACHING ARTIST KIRBY BARRIENTOS M.D. Normal [facility] Comment on above: Performed By: #### C OVID19 FLU RSV, CEPHEID NEG #### [address] [address] [facility] Calcium [Mass/volume] in Ser um or PlasmaOrdered By: Valdez Manrique on 03-16-2024 Calcium [Mass/Vol] Calcium [Mass/volume ] in Serum or Plasma 8.6-10.3 [facility] Carbon dioxide, total [Moles /volume] in Serum or PlasmaOrdered By: Valdez Manrique on 03-16-2024 CO2 [Moles/Vol] Carbon dioxide, tota l [Moles/volume] in Serum or Plasma 21.0-31.0 [facility] Cepheid COVID PCR Negativeon 03-16-2024 SARS-CoV-2 (COVID-19) RNA LINK+probe Ql (Unsp spec) Negative Normal Negative [facility] Comment on above: Result Comment: This is a duplicate Cepheid Xpert Xpress CoV-2/Flu/RSV Plus RNA by RT-PCR result to be used for statistical tracking purpose only. PERFORMED BY: [address] [address] PATHOLOGIST TEACHING ARTIST KIRBY BARRIENTOS M.D. Performed By: #### C OVID19 FLU RSV, CEPHEID NEG #### [address] [address] [place] Chloride [Moles/volume] in S benedicto or PlasmaOrdered By: Valdez Manrique on 03-16-2024 Chloride [Moles/Vol] Chloride [Moles/volume] in Serum or Plasma 98-107 [facility] Color Auto (U)Ordered By: Maikel Manrique on 03-16-2024 Color (U) Color of Urine by Auto Yellow [facility] Complete Blood Count Auto Di ffon 03-16-2024 Basophils (Bld) [#/Vol] 0.0 10*3/uL Normal 0.0-0.2 [facility] Comment on above: Result Comment: PERF ORMED BY: [facility] [place] [address] PATHOLOGIST TEACHING ARTIST KIRBY BARRIENTOS M.D. Performed By: #### C MP, LIPASE, CBC ####[address] Basophils/100 WBC (Bld) 0.1 % Normal . T shilpa [facility] Comment on above: Performed By: #### C MP, LIPASE, CBC ####[address] Eosinophils (Bld) [#/Vol] 0.0 10*3/uL Normal 0.0-0.45 [facility] Comment on above: Performed By: #### C MP, LIPASE, CBC ####[address] Eosinophils/100 WBC (Bld) 0.0 % Normal . [facility] Comment on above: Performed By: #### C MP, LIPASE, CBC ####[address] Erythrocyte distribution width (RBC) [Ratio] 13.5 % Normal 11.9-15.3 [facility] Comment on above: Performed By: #### C MP, LIPASE, CBC ####[address] Hematocrit (Bld) [Volume fraction] 41.8 % Normal 34.0-46.4 [facility] Comment on above: Performed By: #### C MP, LIPASE, CBC ####[address] Hemoglobin (Bld) [Mass/Vol] 14.4 g/dL Normal 11.8-15.4 [facility] Comment on above: Performed By: #### C MP, LIPASE, CBC ####[address] [address] [place] Lymphocytes (Bld) [#/Vol] 0.2 10*3/uL Low 1.00-4.8 [facility] Comment on above: Performed By: #### C MP, LIPASE, CBC ####[address] Lymphocytes/100 WBC (Bld) 1.1 % Normal . [facility] Comment on above: Performed By: #### C MP, LIPASE, CBC ####[address] MCH (RBC) [Entitic mass] 32.1 pg Normal 24.7-34.3 [facility] Comment on above: Performed By: #### C MP, LIPASE, CBC ####[address] MCV (RBC) [Entitic vol] 92.9 fL Normal 80-100 [facility] Comment on above: Performed By: #### C MP, LIPASE, CBC ####[address] Mean Corpuscular HGB Conc 34.5 g/dL Normal 32.0-35.0 [facility] Comment on above: Performed By: #### C MP, LIPASE, CBC ####[address] Monocytes (Bld) [#/Vol] 0.6 10*3/uL Normal 0.0-0.8 [facility] Comment on above: Performed By: #### C MP, LIPASE, CBC ####[address] Monocytes/100 WBC (Bld) 21.34 % High 0.00-20.00 [facility] Comment on above: Result Comment: For adults in ED, MDW > 20.0 may be associated with a higher risk of sepsis during the first 12 hrs of hospital admission Performed By: #### C MP, LIPASE, CBC ####[address] Monocytes/100 WBC (Bld) 3.4 % Normal . [facility] Comment on above: Performed By: #### C MP, LIPASE, CBC ####[address] Neutrophils (Bld) [#/Vol] 15.6 10*3/uL High 1.8-7.7 [facility] Comment on above: Performed By: #### C MP, LIPASE, CBC ####[address] Neutrophils/100 WBC (Bld) 95.4 % Normal . [facility] Comment on above: Performed By: #### C MP, LIPASE, CBC ####[address] NRBC% 0.0 /100{WBC} Normal 0-0.5 [facility] Comment on above: Performed By: #### C MP, LIPASE, CBC ####[address] Platelet mean volume (Bld) [Entitic vol] 8.3 fL Normal 6.3-10.7 [facility] Comment on above: Performed By: #### C MP, LIPASE, CBC ####[address] Platelets (Bld) [#/Vol] 265 10*3/uL Normal 150-450 [facility] Comment on above: Performed By: #### C MP, LIPASE, CBC ####[address] RBC (Bld) [#/Vol] 4.50 10*6/uL Normal 3.60-5.00 [facility] Comment on above: Performed By: #### C MP, LIPASE, CBC ####[address] WBC (Bld) [#/Vol] 16.3 10*3/uL High 3.8-11.6 [facility] Comment on above: Performed By: #### C MP, LIPASE, CBC ####[address] [place] [address] [facility] Comprehensive Metabolic Pane bridger 03-16-2024 Albumin [Mass/Vol] 5.0 g/dL Normal 3.5-5.7 [facility] Comment on above: Performed By: #### C MP, LIPASE, CBC ####[place] [id number] [facility] Albumin/Globulin [Mass ratio] 1.8 {ratio} Normal [facility] Comment on above: Performed By: #### C MP, LIPASE, CBC ####[place] [id number] [facility] ALP [Catalytic activity/Vol] 76 U/L Normal 34-104 [facility] Comment on above: Performed By: #### C MP, LIPASE, CBC ####[place] [id number] [facility] ALT [Catalytic activity/Vol] 12 U/L Normal 7-52 [facility] Comment on above: Performed By: #### C MP, LIPASE, CBC ####[place] [id number] [facility] Anion gap [Moles/Vol] 11.5 mmol/L Normal 6.0-15.0 [facility] Comment on above: Performed By: #### C MP, LIPASE, CBC ####[place] [id number] [facility] AST [Catalytic activity/Vol] 17 U/L Normal 13-39 [facility] Comment on above: Performed By: #### C MP, LIPASE, CBC ####[place] [id number] [facility] Bilirubin [Mass/Vol] 0.5 mg/dL Normal 0.3-1.0 [facility] Comment on above: Performed By: #### C MP, LIPASE, CBC ####[place] [id number] [facility] Calcium [Mass/Vol] 9.1 mg/dL Normal 8.6-10.3 [facility] Comment on above: Performed By: #### C MP, LIPASE, CBC ####[place] [id number] [address] Chloride [Moles/Vol] 107 mmol/L Normal 98-107 [facility] Comment on above: Performed By: #### C MP, LIPASE, CBC ####[place] [id number] [facility] CO2 [Moles/Vol] 21.1 mmol/L Normal 21.0-31.0 [facility] Comment on above: Performed By: #### C MP, LIPASE, CBC ####[address] Creatinine [Mass/Vol] 0.93 mg/dL Normal 0.60-1.20 [facility] Comment on above: Performed By: #### C MP, LIPASE, CBC ####[address] Creatinine Clr Calc Pharmacy 84.29 Normal [facility] Comment on above: Performed By: #### C MP, LIPASE, CBC ####[address] GFR/1.73 sq M.predicted MDRD (S/P/Bld) [Vol rate/Area] mL/min/{1.73_m2} Normal [facility] Comment on above: Performed By: #### C MP, LIPASE, CBC ####[address] Globulin (S) [Mass/Vol] 2.8 g/dL Normal [facility] Comment on above: Performed By: #### C MP, LIPASE, CBC ####[address] Glucose [Mass/Vol] 122 mg/dL High 70-100 [facility] Comment on above: Result Comment: [facility] Glucose Reference Range is dependent on time and content of last meal. Glucose of more than 200 mg/dL in a nonstressed, ambulatory subject supports the diagnosis of Diabetes Mellitus. ADA recommended reference range Performed By: #### C MP, LIPASE, CBC ####[place] [address] [place] Potassium [Moles/Vol] 3.6 mmol/L Normal 3.5-5.1 [facility] Comment on above: Performed By: #### C MP, LIPASE, CBC ####[facility] Protein [Mass/Vol] 7.8 g/dL Normal 6.4-8.9 [facility] Comment on above: Performed By: #### C MP, LIPASE, CBC ####[facility] Sodium [Moles/Vol] 136 mmol/L Normal 136-145 [facility] Comment on above: Performed By: #### C MP, LIPASE, CBC ####[place] [id number] [address] Urea nitrogen [Mass/Vol] 15 mg/dL Normal 7-25 [facility] Comment on above: Performed By: #### C MP, LIPASE, CBC ####[place] [id number] [address] Creatinine [Mass/volume] in Serum or PlasmaOrdered By: Valdez Manrique on 03-16-2024 Creatinine [Mass/Vol] Creatinine [Mass/volume] in Serum or Plasma 0.60-1.20 [facility] Dipstick and Microscopicon 0 03-16-2024 Appearance (U) Clear Normal Clear [facility] Comment on above: Order Comment: Name Collection Type:: Clean-Voided Midstream Performed By: #### A DDONUAPLUS CG #### [facility] [address] Bacteria,Urine Rare Normal None Seen [facility] Comment on above: Order Comment: Name Collection Type:: Clean-Voided Midstream Performed By: #### A DDONUAPLUS CG #### [facility] [address] Bilirubin,Urine Negative Normal Negative [facility] Comment on above: Order Comment: Name Collection Type:: Clean-Voided Midstream Performed By: #### A DDONUAPLUS CG #### [address] Color (U) Yellow Normal Yellow [facility] Comment on above: Order Comment: Name Collection Type:: Clean-Voided Midstream Performed By: #### A DDONUAPLUS, UHCG #### [address] Glucose Ql (U) Normal Normal Normal [facility] Comment on above: Order Comment: Name Collection Type:: Clean-Voided Midstream Performed By: #### A DDONUAPLUS, UHCG #### [place] [address] [place] Hyaline Casts,Urine None Normal 0-8 [facility] Comment on above: Order Comment: Name Collection Type:: Clean-Voided Midstream Performed By: #### A DDONUAPLUS, UHCG #### [address] Ketones Ql (U) 2+ High Negative [facility] Comment on above: Order Comment: Name Collection Type:: Clean-Voided Midstream Performed By: #### A DDONUAPLUS, UHCG #### [place] [address] [place] Leukocyte esterase Test strip Ql (U) 1+ High Negative [facility] Comment on above: Order Comment: Name Collection Type:: Clean-Voided Midstream Performed By: #### A DDONUAPLUS, UHCG #### [place] [address] [place] Mucus,Urine 1+ Critically abnormal [facility] Comment on above: Order Comment: Name Collection Type:: Clean-Voided Midstream Performed By: #### A DDONUAPLUS, UHCG #### [place] [address] [place] Nitrite,Urine Negative Normal Negative [facility] Comment on above: Order Comment: Name Collection Type:: Clean-Voided Midstream Performed By: #### A DDONUAPLUS, UHCG #### [address] Occult Blood,Urine Negative Normal Negative [facility] Comment on above: Order Comment: Name Collection Type:: Clean-Voided Midstream Performed By: #### A DDONUAPLUS, UHCG #### [address] pH (U) 6.0 [pH] Normal 5.0-9.0 [facility] Comment on above: Order Comment: Name Collection Type:: Clean-Voided Midstream Performed By: #### A DDONUAPLUS, UHCG #### [address] Protein (U) [Mass/Vol] 20 mg/dL High Negative Th [facility] Comment on above: Order Comment: Name Collection Type:: Clean-Voided Midstream Performed By: #### A DDONUAPLUS, UHCG #### [address] RBC,Urine 1 [HPF] Normal 0-4 [facility] Comment on above: Order Comment: Name Collection Type:: Clean-Voided Midstream Performed By: #### A DDONUAPLUS, UHCG #### [address] Specificy [place],Urine 1.030 Normal 1.001-1.030 [facility] Comment on above: Order Comment: Name Collection Type:: Clean-Voided Midstream Performed By: #### A DDONUAPLUS, UHCG #### [address] Squamous Epithelial Cell,Urine 10 [HPF] High 0-2 [facility] Comment on above: Order Comment: Name Collection Type:: Clean-Voided Midstream Performed By: #### A DDONUAPLUS, UHCG #### [address] Urobilinogen,Urine Normal Normal Normal [facility] Comment on above: Order Comment: Name Collection Type:: Clean-Voided Midstream Performed By: #### A DDONUAPLUS, UHCG #### [address] [address] [place] WBC,Urine 1 [HPF] Normal 0-4 [facility] Comment on above: Order Comment: Name Collection Type:: Clean-Voided Midstream Performed By: #### A DDONUAPLUS, UHCG #### [facility] [address] Eosinophils Auto (Bld) [#/Vo l]Ordered By: Valdez Manrique on 03-16-2024 Eosinophils (Bld) [#/Vol] Automated eosinophil count 0.0-0.45 [facility] Eosinophils/100 WBC Auto (Bl d)Ordered By: Valdez Manrique on 03-16-2024 Eosinophils/100 WBC (Bld) Automated eosinophil % . [facility] Epithelial cells.squamous [# /area] in Urine sediment by Automated countOrdered By: Valdez Manrique on 03-16-2024 Epithelial cells.squamous Auto (Urine sed) [#/Area] Epithelial cells.squamous [#/area] in Urine sediment by Automated count High 0-2 [facility] Erythrocyte distribution wid th Auto (RBC) [Ratio]Ordered By: Valdez Manrique on 03-16-2024 Erythrocyte distribution width (RBC) [Ratio] Erythrocyte distribution width [Ratio] by Automated count 11.9-15.3 [facility] Erythrocytes [#/area] in Uri ne sediment by Automated countOrdered By: Valdez Manrique on 03-16-2024 RBC Auto (Urine sed) [#/Area] Erythrocytes [#/area] in Urine sediment by Automated count 0-4 [facility] Globulin Calc (S) [Mass/Vol] Ordered By: Valdez Manrique on 03-16-2024 Globulin (S) [Mass/Vol] Serum globulin measurement by calculation (mass/volume) [facility] Glucose [Mass/volume] in Ser um or PlasmaOrdered By: Valdez Manrique on 03-16-2024 Glucose [Mass/Vol] Glucose [Mass/volume ] in Serum or Plasma High 70-100 [facility] Comment on above: ADA recommended refe [...] [Mass/volume] in Urine by Test strip Normal [facility] HCG ( test) IA.rapi d Ql (U)Ordered By: ITZEL MORAN on 03-16-2024 HCG ( test) Ql (U) Urine human chorionic gonadotropin (hCG) detection by immunoassay [facility] HCG,Urineon 03-16-2024 Beta HCG ( test) Ql (U) Negative Normal [facility] Comment on above: Order Comment: Name Collection Type:: Clean-Voided Midstream Result Comment: PERF ORMED BY: [facility] [address] [place] [address] PATHOLOGIST TEACHING ARTIST KIRBY BARRIENTOS M.D. Performed By: #### A DDONUARYAN, [facility] #### [facility] [address] Hematocrit Auto (Bld) [Volum e fraction]Ordered By: Valdez Manrique on 03-16-2024 Hematocrit (Bld) [Volume fraction] Hematocrit [Volume Fraction] of Blood by Automated count 34.0-46.4 [facility] Hemoglobin Test strip Ql (U) Ordered By: Valdez Manrique on 03-16-2024 Hemoglobin Ql (U) Hemoglobin [Presence ] in Urine by Test strip Negative [facility] Hemoglobin [Mass/volume] in BloodOrdered By: Valdez Manrique on 03-16-2024 Hemoglobin (Bld) [Mass/Vol] Hemoglobin [Mass/volume] in Blood 11.8-15.4 [facility] Hyaline casts [#/area] in Ur ine sediment by Automated countOrdered By: Valdez Manrique on 03-16-2024 Hyaline casts Auto (Urine sed) [#/Area] Hyaline casts [#/area] in Urine sediment by Automated count 0-8 [facility] Ketones Test strip Ql (U)Ord ered By: Valdez Manrique on 03-16-2024 Ketones Ql (U) Ketones [Presence] i n Urine by Test strip High Negative [facility] Leukocyte esterase [Presence ] in Urine by Test stripOrdered By: Valdez Manrique on 03-16-2024 Leukocyte esterase Test strip Ql (U) Leukocyte esterase [Presence] in Urine by Test strip High Negative [facility] Leukocytes [#/area] in Urine sediment by Automated countOrdered By: Valdez Manrique on 03-16-2024 WBC Auto (Urine sed) [#/Area] Leukocytes [#/area] in Urine sediment by Automated count 0-4 [facility] Leukocytes [#/volume] correc chandan for nucleated erythrocytes in Blood by Automated counOrdered By: Valdez Manrique on 03-16-2024 WBC corrected for nucl RBC Auto (Bld) [#/Vol] Leukocytes [#/volume] corrected for nucleated erythrocytes in Blood by Automated coun High 3.8-11.6 [facility] Lipaseon 03-16-2024 Lipase [Catalytic activity/Vol] 20.0 U/L Normal 11.0-82.0 [facility] Comment on above: Result Comment: PERF ORMED BY: [facility] [address] [place] [facility] [id number] PATHOLOGIST TEACHING ARTIST KIRBY BARRIENTOS M.D. Performed By: #### C MP, LIPASE, CBC ####[facility] [place] [id number] [facility] Lipase [Enzymatic activity/v olume] in Serum or PlasmaOrdered By: Valdez Manrique on 03-16-2024 Lipase [Catalytic activity/Vol] Lipase [Enzymatic activity/volume] in Serum or Plasma 11.0-82.0 [facility] Lymphocytes Auto (Bld) [#/Vo l]Ordered By: Valdez Manrique on 03-16-2024 Lymphocytes (Bld) [#/Vol] Lymphocytes [#/volume] in Blood by Automated count Low 1.00-4.8 [facility] Lymphocytes/100 WBC Auto (Bl d)Ordered By: Valdez Manrique on 03-16-2024 Lymphocytes/100 WBC (Bld) Lymphocytes/100 leukocytes in Blood by Automated count . [facility] MCH Auto (RBC) [Entitic mass ]Ordered By: Valdez Manrique on 03-16-2024 MCH (RBC) [Entitic mass] MCH [Entitic mass] by Automated count 24.7-34.3 [facility] MCHC Auto (RBC) [Mass/Vol]Or dered By: Valdez Manrique on 03-16-2024 MCHC (RBC) [Mass/Vol] MCHC [Mass/volume] by Automated count 32.0-35.0 [facility] MCV Auto (RBC) [Entitic vol] Ordered By: Valdez Manrique on 03-16-2024 MCV (RBC) [Entitic vol] MCV [Entitic vol ume] by Automated count 80-100 [facility] Monocyte distribution width [Entitic volume] in Blood by AutomatedOrdered By: Valdez Manrique on 03-16-2024 Monocyte distribution width Auto (Bld) [Entitic vol] Monocyte distribution width [Entitic volume] in Blood by Automated High 0.00-20.00 [facility] Comment on above: For adults in ED, MD W > 20.0 may be associated with a higher risk of sepsis during the first 12 hrs of hospital admission Monocytes Auto (Bld) [#/Vol] Ordered By: Valdez Manrique on 03-16-2024 Monocytes (Bld) [#/Vol] Automated blood monocyte count 0.0-0.8 [facility] Monocytes/100 WBC Auto (Bld) Ordered By: Valdez Manrique on 03-16-2024 Monocytes/100 WBC (Bld) Automated monocyte % . [facility] Mucus [Presence] in Urine by AutomatedOrdered By: Valdez Manrique on 03-16-2024 Mucus Auto Ql (U) Mucus [Presence] in Urine by Automated Abnormal [facility] Neutrophils Auto (Bld) [#/Vo l]Ordered By: Valdez Manrique on 03-16-2024 Neutrophils (Bld) [#/Vol] Neutrophils [#/volume] in Blood by Automated count High 1.8-7.7 [facility] Neutrophils/100 WBC Auto (Bl d)Ordered By: Valdez Manrique on 03-16-2024 Neutrophils/100 WBC (Bld) Automated neutrophil % . [facility] Nitrite Test strip Ql (U)Ord ered By: Valdez Manrique on 03-16-2024 Nitrite Ql (U) Nitrite [Presence] i n Urine by Test strip Negative [facility] No Panel InformationOrdered By: Valdez Manrique on 03-16-2024 Estimated GFR (CKD-EPI) > 60.0 mL/Min [facility] Creatinine Clearance (Chem 84.29 [facility] Nucleated erythrocytes [Pres ence] in Blood by Automated countOrdered By: Valdez Manrique on 03-16-2024 Nucleated RBC Auto Ql (Bld) Nucleated erythrocytes [Presence] in Blood by Automated count 0-0.5 [facility] Platelet mean volume Auto (B ld) [Entitic vol]Ordered By: Valdez Manrique on 03-16-2024 Platelet mean volume (Bld) [Entitic vol] Platelet mean volume [Entitic volume] in Blood by Automated count 6.3-10.7 [facility] Platelets Auto (Bld) [#/Vol] Ordered By: Valdez Manrique on 03-16-2024 Platelets (Bld) [#/Vol] Platelets [#/vol ume] in Blood by Automated count 150-450 [facility] Potassium [Moles/volume] in Serum or PlasmaOrdered By: Valdez Manrique on 03-16-2024 Potassium [Moles/Vol] Potassium [Moles/volume] in Serum or Plasma 3.5-5.1 [facility] Protein Test strip (U) [Mass /Vol]Ordered By: Valdez Manrique on 03-16-2024 Protein (U) [Mass/Vol] Protein [Mass/vol ume] in Urine by Test strip High Negative [facility] Protein [Mass/volume] in Ser um or PlasmaOrdered By: Valdez Manrique on 03-16-2024 Protein [Mass/Vol] Protein [Mass/volume ] in Serum or Plasma 6.4-8.9 [facility] RBC Auto (Bld) [#/Vol]Ordere d By: Valdez Manrique on 03-16-2024 RBC (Bld) [#/Vol] Erythrocytes [#/volume] in Blood by Automated count 3.60-5.00 [facility] Respiratory specimen influen za A virus, influenza B virus, respiratory syncytical virOrdered By: Valdez Manrique on 03-16-2024 SARS-CoV-2 (COVID-19) RNA LINK+probe Ql (Unsp spec) Respiratory specimen influenza A virus, influenza B virus, respiratory syncytical vir [facility] SARS-CoV-2 (COVID-19) RNA LINK+probe Ql (Unsp spec) Respiratory specimen influenza A virus, influenza B virus, respiratory syncytical vir [facility] Serum or plasma albumin/glob ulin mass ratioOrdered By: Valdez Manrique on 03-16-2024 Albumin/Globulin [Mass ratio] Serum or plasma albumin/globulin mass ratio [facility] Serum or plasma anion gap de terminationOrdered By: Valdez Manrique on 03-16-2024 Anion gap [Moles/Vol] Serum or plasma an ion gap determination 6.0-15.0 [facility] Sodium [Moles/volume] in Ser um or PlasmaOrdered By: Valdez Manrique on 03-16-2024 Sodium [Moles/Vol] Sodium [Moles/volume ] in Serum or Plasma 136-145 [facility] Specific gravity Test strip (U) [Rel density]Ordered By: Valdez Manrique on 03-16-2024 Specific gravity (U) [Rel density] Specific gravity of Urine by Test strip 1.001-1.030 [facility] Urea nitrogen [Mass/volume] in Serum or PlasmaOrdered By: Valdez Manrique on 03-16-2024 Urea nitrogen [Mass/Vol] Urea nitrogen [Mass/volume] in Serum or Plasma 7-25 [facility] Urobilinogen Test strip (U) [Mass/Vol]Ordered By: Valdez Manrique on 03-16-2024 Urobilinogen (U) [Mass/Vol] Urobilinogen [Mass/volume] in Urine by Test strip Normal [facility] WBC Auto (Bld) [#/Vol]Ordere d By: Valdez Manrique on 03-16-2024 WBC (Bld) [#/Vol] Leukocytes [#/volume ] in Blood by Automated count High 3.8-11.6 [facility] pH Test strip (U)Ordered By: Valdez Manrique on 03-16-2024 pH (U) pH of Urine by Test strip 5.0-9.0 [facility] Appearance of UrineOrdered B y: Jimmy Donis on 03-04-2024 Appearance (U) Urine appearance Clear [facility] Bacteria [Presence] in Urine by AutomatedOrdered By: Jimmy Donis on 03-04-2024 Bacteria Auto Ql (U) Bacteria [Presence] in Urine by Automated None Seen [facility] Basic Metabolic Panelon 02-18 Anion gap [Moles/Vol] 19.7 mmol/L High 6.0-15.0 [facility] Comment on above: Performed By: #### B MP, CBC ####[address] [address] [facility] Calcium [Mass/Vol] 8.9 mg/dL Normal 8.6-10.3 [facility] Comment on above: Performed By: #### B MP, CBC ####[place] [id number] [facility] Chloride [Moles/Vol] 107 mmol/L Normal 98-107 [facility] Comment on above: Performed By: #### B MP, CBC ####[place] [phone] [facility] CO2 [Moles/Vol] 16.0 mmol/L Low 21.0-31.0 [facility] Comment on above: Performed By: #### B MP, CBC ####[place] [id number] [facility] Creatinine [Mass/Vol] 0.95 mg/dL Normal 0.60-1.20 [facility] Comment on above: Performed By: #### B MP, CBC ####[place] [id number] [place] Creatinine Clr Calc Pharmacy 80.64 Normal [facility] Comment on above: Result Comment: PERF ORMED BY: [facility] [address] [facility] [place] [id number] PATHOLOGIST TEACHING ARTIST KIRBY BARRIENTOS M.D. Performed By: #### B MP, CBC ####[place] [id number] [place] GFR/1.73 sq M.predicted MDRD (S/P/Bld) [Vol rate/Area] mL/min/{1.73_m2} Normal [facility] Comment on above: Performed By: #### B MP, CBC ####[address] Glucose [Mass/Vol] 129 mg/dL High 70-100 [facility] Comment on above: Result Comment: [place] Glucose Reference Range is dependent on time and content of last meal. Glucose of more than 200 mg/dL in a nonstressed, ambulatory subject supports the diagnosis of Diabetes Mellitus. ADA recommended reference range Performed By: #### B MP, CBC ####[address] Potassium [Moles/Vol] 3.7 mmol/L Normal 3.5-5.1 [facility] Comment on above: Performed By: #### B MP, CBC ####[address] Sodium [Moles/Vol] 139 mmol/L Normal 136-145 [facility] Comment on above: Performed By: #### B MP, CBC ####[address] Urea nitrogen [Mass/Vol] 9 mg/dL Normal 7-25 [facility] Comment on above: Performed By: #### B MP, CBC ####[address] Basophils Auto (Bld) [#/Vol] Ordered By: Jimmy Donis on 03-04-2024 Basophils (Bld) [#/Vol] Automated basoph il count 0.0-0.2 [facility] Basophils/100 WBC Auto (Bld) Ordered By: Jimmy Donis on 03-04-2024 Basophils/100 WBC (Bld) Automated basophil % . [facility] Bilirubin Test strip Ql (U)O rdered By: Jimmy Donis on 03-04-2024 Bilirubin Ql (U) Bilirubin.total [Presence] in Urine by Test strip Negative [facility] CT head/brain wo conon 03-04 CT head/brain wo con [facility] [place] [address] [place] [address] CT Scan Report Signed Patient: Quentin Bird MR#: [id number] : 2000 Acct:[id number] Age/Sex: 23 / F ADM Date: 03/04/24 Loc: ER Room: Type: [facility] ER Attending Dr: Copies to: [...] Tomas Graham M.D.03/04/2024 10:41 AM Dictation Location: [place] [address] Transcribed By: [facility] 03/04/24 1041 Dictated By: Tomas Graham MD 03/04/24 1039 Signed By: 03/04/24 1041 Normal [facility] Calcium [Mass/volume] in Ser um or PlasmaOrdered By: Jimmy Donis on 03-04-2024 Calcium [Mass/Vol] Calcium [Mass/volume ] in Serum or Plasma 8.6-10.3 [facility] Carbon dioxide, total [Moles /volume] in Serum or PlasmaOrdered By: Jimmy Donis on 03-04-2024 CO2 [Moles/Vol] Carbon dioxide, tota l [Moles/volume] in Serum or Plasma Low 21.0-31.0 [facility] Chloride [Moles/volume] in S benedicto or PlasmaOrdered By: Jimmy Donis on 03-04-2024 Chloride [Moles/Vol] Chloride [Moles/volume] in Serum or Plasma 98-107 [facility] Color Auto (U)Ordered By: Yan Donis on 03-04-2024 Color (U) Color of Urine by Auto Yellow [facility] Complete Blood Count Auto Di ffon 03-04-2024 Basophils (Bld) [#/Vol] 0.1 10*3/uL Normal 0.0-0.2 [facility] Comment on above: Result Comment: PERF ORMED BY: [facility] [address] [place] [address] PATHOLOGIST TEACHING ARTIST KIRBY BARRIENTOS M.D. Performed By: #### B MP, CBC ####[address] Basophils/100 WBC (Bld) 0.7 % Normal . [facility] Comment on above: Performed By: #### B MP, CBC ####[address] Eosinophils (Bld) [#/Vol] 0.1 10*3/uL Normal 0.0-0.45 [facility] Comment on above: Performed By: #### B MP, CBC ####[address] Eosinophils/100 WBC (Bld) 1.1 % Normal . [facility] Comment on above: Performed By: #### B MP, CBC ####[address] Erythrocyte distribution width (RBC) [Ratio] 13.5 % Normal 11.9-15.3 [facility] Comment on above: Performed By: #### B MP, CBC ####[address] Hematocrit (Bld) [Volume fraction] 41.0 % Normal 34.0-46.4 [facility] Comment on above: Performed By: #### B MP, CBC ####[place] [id number] [facility] Hemoglobin (Bld) [Mass/Vol] 13.7 g/dL Normal 11.8-15.4 [facility] Comment on above: Performed By: #### B MP, CBC ####[address] Lymphocytes (Bld) [#/Vol] 2.3 10*3/uL Normal 1.00-4.8 [facility] Comment on above: Performed By: #### B MP, CBC ####[address] Lymphocytes/100 WBC (Bld) 28.5 % Normal . [facility] Comment on above: Performed By: #### B MP, CBC ####[address] MCH (RBC) [Entitic mass] 31.6 pg Normal 24.7-34.3 [facility] Comment on above: Performed By: #### B MP, CBC ####[address] MCV (RBC) [Entitic vol] 94.5 fL Normal 80-100 [facility] Comment on above: Performed By: #### B MP, CBC ####[address] Mean Corpuscular HGB Conc 33.4 g/dL Normal 32.0-35.0 [facility] Comment on above: Performed By: #### B MP, CBC ####[address] Monocytes (Bld) [#/Vol] 0.7 10*3/uL Normal 0.0-0.8 [facility] Comment on above: Performed By: #### B MP, CBC ####[address] Monocytes/100 WBC (Bld) 15.77 % Normal 0.00-20.00 [facility] Comment on above: Performed By: #### B MP, CBC ####[address] Monocytes/100 WBC (Bld) 8.2 % Normal . [facility] Comment on above: Performed By: #### B MP, CBC ####[place] [address] Neutrophils (Bld) [#/Vol] 5.0 10*3/uL Normal 1.8-7.7 [facility] Comment on above: Performed By: #### B MP, CBC ####[address] Neutrophils/100 WBC (Bld) 61.5 % Normal . [facility] Comment on above: Performed By: #### B MP, CBC ####[address] NRBC% 0.1 /100{WBC} Normal 0-0.5 [facility] Comment on above: Performed By: #### B MP, CBC ####[address] Platelet mean volume (Bld) [Entitic vol] 8.0 fL Normal 6.3-10.7 [facility] Comment on above: Performed By: #### B MP, CBC ####[address] Platelets (Bld) [#/Vol] 300 10*3/uL Normal 150-450 [facility] Comment on above: Performed By: #### B MP, CBC ####[address] RBC (Bld) [#/Vol] 4.34 10*6/uL Normal 3.60-5.00 [facility] Comment on above: Performed By: #### B MP, CBC ####[address] WBC (Bld) [#/Vol] 8.1 10*3/uL Normal 3.8-11.6 [facility] Comment on above: Performed By: #### B MP, CBC ####[address] Creatinine [Mass/volume] in Serum or PlasmaOrdered By: Jimmy Donis on 03-04-2024 Creatinine [Mass/Vol] Creatinine [Mass/volume] in Serum or Plasma 0.60-1.20 [facility] Dipstick and Microscopicon 0 03-04-2024 Appearance (U) Clear Normal Clear [facility] Comment on above: Order Comment: Name Collection Type:: Clean-Voided Midstream Performed By: #### U HCG, ADDONUAPLUS #### [facility] [address] [place] [address] Bacteria,Urine Rare Normal None Seen [facility] Comment on above: Order Comment: Name Collection Type:: Clean-Voided Midstream Performed By: #### U HCG, ADDONUAPLUS #### [address] Bilirubin,Urine Negative Normal Negative [facility] Comment on above: Order Comment: Name Collection Type:: Clean-Voided Midstream Performed By: #### U HCG, ADDONUAPLUS #### [place] [address] [place] Color (U) Light-Yellow Normal Yellow [facility] Comment on above: Order Comment: Name Collection Type:: Clean-Voided Midstream Performed By: #### U HCG, ADDONUAPLUS #### [facility] [address] [place] [address] Glucose Ql (U) Normal Normal Normal [facility] Comment on above: Order Comment: Name Collection Type:: Clean-Voided Midstream Performed By: #### U HCG, ADDONUAPLUS #### [facility] [address] [place] [address] [place] Hyaline Casts,Urine None Normal 0-8 [facility] Comment on above: Order Comment: Name Collection Type:: Clean-Voided Midstream Performed By: #### U HCG, ADDONUAPLUS #### [facility] [address] [place] [address] [place] Ketones Ql (U) Negative Normal Negative [facility] Comment on above: Order Comment: Name Collection Type:: Clean-Voided Midstream Performed By: #### U HCG, ADDONUAPLUS #### [facility] [address] [place] [address] Leukocyte esterase Test strip Ql (U) 2+ High Negative [facility] Comment on above: Order Comment: Name Collection Type:: Clean-Voided Midstream Performed By: #### U HCG, ADDONUAPLUS #### [facility] [address] [place] [address] [place] Mucus,Urine Rare Normal [facility] Comment on above: Order Comment: Name Collection Type:: Clean-Voided Midstream Performed By: #### U HCG, ADDONUAPLUS #### [place] [address] [place] Nitrite,Urine Negative Normal Negative [facility] Comment on above: Order Comment: Name Collection Type:: Clean-Voided Midstream Performed By: #### U HCG, ADDONUAPLUS #### [place] [address] [place] Occult Blood,Urine Negative Normal Negative [facility] Comment on above: Order Comment: Name Collection Type:: Clean-Voided Midstream Performed By: #### U HCG, ADDONUAPLUS #### [address] pH (U) 6.5 [pH] Normal 5.0-9.0 [facility] Comment on above: Order Comment: Name Collection Type:: Clean-Voided Midstream Performed By: #### U HCG, ADDONUAPLUS #### [place] [address] [place] Protein,Urine Negative Normal Negative [facility] Comment on above: Order Comment: Name Collection Type:: Clean-Voided Midstream Performed By: #### U HCG, ADDONUAPLUS #### [place] [address] [place] RBC,Urine 1 [HPF] Normal 0-4 [facility] Comment on above: Order Comment: Name Collection Type:: Clean-Voided Midstream Performed By: #### U HCG, ADDONUAPLUS #### [place] [address] [place] Specificy [place],Urine 1.010 Normal 1.001-1.030 [facility] Comment on above: Order Comment: Name Collection Type:: Clean-Voided Midstream Performed By: #### U HCG, ADDONUAPLUS #### [facility] [address] Squamous Epithelial Cell,Urine 5 [HPF] High 0-2 [facility] Comment on above: Order Comment: Name Collection Type:: Clean-Voided Midstream Performed By: #### U HCG, ADDONUAPLUS #### [facility] [address] Urobilinogen,Urine Normal Normal Normal [facility] Comment on above: Order Comment: Name Collection Type:: Clean-Voided Midstream Performed By: #### U HCG, ADDONUAPLUS #### [facility] [address] WBC,Urine 3 [HPF] Normal 0-4 [facility] Comment on above: Order Comment: Name Collection Type:: Clean-Voided Midstream Performed By: #### U HCG, ADDONUAPLUS #### [address] ECG 12 lead ECGon 03-04-2024 ECG 12 lead ECG [facility] [place] [address] [place] [address] Electrocardiograph Report Signed Patient: Quentin Bird MR#: [id number] : 2000 Acct:[id number] Age/Sex: 23 / F ADM Date: 03/04/24 Loc: ER Room: Type: [facility] ER Attending Dr: Ordering Provider: Jimmy [...] QRS axis Confirmed by Jimmy Donis DO ([id number]) on 03/04/2024 3:19:49 PM Referred By: Electronically Signed By: iJmmy Donis DO Transcribed By: MUS Signed By Jimmy Donis DO 5 1519 Normal [facility] Eosinophils Auto (Bld) [#/Vo l]Ordered By: Jimmy Donis on 03-04-2024 Eosinophils (Bld) [#/Vol] Automated eosinophil count 0.0-0.45 [facility] Eosinophils/100 WBC Auto (Bl d)Ordered By: Jimmy Donis on 03-04-2024 Eosinophils/100 WBC (Bld) Automated eosinophil % . [facility] Epithelial cells.squamous [# /area] in Urine sediment by Automated countOrdered By: Jimmy Donis on 03-04-2024 Epithelial cells.squamous Auto (Urine sed) [#/Area] Epithelial cells.squamous [#/area] in Urine sediment by Automated count High 0-2 [facility] Erythrocyte distribution wid th Auto (RBC) [Ratio]Ordered By: Jimmy Donis on 03-04-2024 Erythrocyte distribution width (RBC) [Ratio] Erythrocyte distribution width [Ratio] by Automated count 11.9-15.3 [facility] Erythrocytes [#/area] in Uri ne sediment by Automated countOrdered By: Jimmy Donis on 03-04-2024 RBC Auto (Urine sed) [#/Area] Erythrocytes [#/area] in Urine sediment by Automated count 0-4 [facility] Glucose [Mass/volume] in Ser um or PlasmaOrdered By: Jimmy Donis on 03-04-2024 Glucose [Mass/Vol] Glucose [Mass/volume ] in Serum or Plasma High 70-100 [facility] Comment on above: ADA recommended refe [...] [Mass/volume] in Urine by Test strip Normal [facility] HCG ( test) IA.rapi d Ql (U)Ordered By: Jimmy Donis on 03-04-2024 HCG ( test) Ql (U) Urine human chorionic gonadotropin (hCG) detection by immunoassay [facility] HCG,Urineon 03-04-2024 Beta HCG ( test) Ql (U) Negative Normal [facility] Comment on above: Order Comment: Name Collection Type:: Clean-Voided Midstream Result Comment: PERF ORMED BY: [facility] [address] [id number] PATHOLOGIST TEACHING ARTIST KIRBY BARRIENTOS M.D. Performed By: #### U HCG, ADDONUAPLUS ####[facility] [place] [address] [facility] Hematocrit Auto (Bld) [Volum e fraction]Ordered By: Jimmy Donis on 03-04-2024 Hematocrit (Bld) [Volume fraction] Hematocrit [Volume Fraction] of Blood by Automated count 34.0-46.4 [facility] Hemoglobin Test strip Ql (U) Ordered By: Jimmy Donis on 03-04-2024 Hemoglobin Ql (U) Hemoglobin [Presence ] in Urine by Test strip Negative [facility] Hemoglobin [Mass/volume] in BloodOrdered By: Jimmy Donis on 03-04-2024 Hemoglobin (Bld) [Mass/Vol] Hemoglobin [Mass/volume] in Blood 11.8-15.4 [facility] Hyaline casts [#/area] in Ur ine sediment by Automated countOrdered By: Jimmy Donis on 03-04-2024 Hyaline casts Auto (Urine sed) [#/Area] Hyaline casts [#/area] in Urine sediment by Automated count 0-8 [facility] Ketones Test strip Ql (U)Ord ered By: Jimmy Donis on 03-04-2024 Ketones Ql (U) Ketones [Presence] i n Urine by Test strip Negative [facility] Leukocyte esterase [Presence ] in Urine by Test stripOrdered By: Jimmy Donis on 03-04-2024 Leukocyte esterase Test strip Ql (U) Leukocyte esterase [Presence] in Urine by Test strip High Negative [facility] Leukocytes [#/area] in Urine sediment by Automated countOrdered By: Jimmy Donis on 03-04-2024 WBC Auto (Urine sed) [#/Area] Leukocytes [#/area] in Urine sediment by Automated count 0-4 [facility] Leukocytes [#/volume] correc chandan for nucleated erythrocytes in Blood by Automated counOrdered By: Jimmy Donis on 03-04-2024 WBC corrected for nucl RBC Auto (Bld) [#/Vol] Leukocytes [#/volume] corrected for nucleated erythrocytes in Blood by Automated coun 3.8-11.6 [facility] Lymphocytes Auto (Bld) [#/Vo l]Ordered By: Jimmy Donis on 03-04-2024 Lymphocytes (Bld) [#/Vol] Lymphocytes [#/volume] in Blood by Automated count 1.00-4.8 [facility] Lymphocytes/100 WBC Auto (Bl d)Ordered By: Jimmy Donis on 03-04-2024 Lymphocytes/100 WBC (Bld) Lymphocytes/100 leukocytes in Blood by Automated count . [facility] MCH Auto (RBC) [Entitic mass ]Ordered By: Jimmy Donis on 03-04-2024 MCH (RBC) [Entitic mass] MCH [Entitic mass] by Automated count 24.7-34.3 [facility] MCHC Auto (RBC) [Mass/Vol]Or dered By: Jimmy Donis on 03-04-2024 MCHC (RBC) [Mass/Vol] MCHC [Mass/volume] by Automated count 32.0-35.0 [facility] MCV Auto (RBC) [Entitic vol] Ordered By: Jimmy Donis on 03-04-2024 MCV (RBC) [Entitic vol] MCV [Entitic vol ume] by Automated count 80-100 [facility] Monocyte distribution width [Entitic volume] in Blood by AutomatedOrdered By: Jimmy Donis on 03-04-2024 Monocyte distribution width Auto (Bld) [Entitic vol] Monocyte distribution width [Entitic volume] in Blood by Automated 0.00-20.00 [facility] Monocytes Auto (Bld) [#/Vol] Ordered By: Jimmy Donis on 03-04-2024 Monocytes (Bld) [#/Vol] Automated blood monocyte count 0.0-0.8 [facility] Monocytes/100 WBC Auto (Bld) Ordered By: Jimmy Donis on 03-04-2024 Monocytes/100 WBC (Bld) Automated monocyte % . [facility] Mucus [Presence] in Urine by AutomatedOrdered By: Jimmy Donis on 03-04-2024 Mucus Auto Ql (U) Mucus [Presence] in Urine by Automated [facility] Neutrophils Auto (Bld) [#/Vo l]Ordered By: Jimmy Donis on 03-04-2024 Neutrophils (Bld) [#/Vol] Neutrophils [#/volume] in Blood by Automated count 1.8-7.7 [facility] Neutrophils/100 WBC Auto (Bl d)Ordered By: Jimmy Donis on 03-04-2024 Neutrophils/100 WBC (Bld) Automated neutrophil % . [facility] Nitrite Test strip Ql (U)Ord ered By: Jimmy Donis on 03-04-2024 Nitrite Ql (U) Nitrite [Presence] i n Urine by Test strip Negative [facility] No Panel InformationOrdered By: Jimmy Donis on 03-04-2024 Estimated GFR (CKD-EPI) > 60.0 mL/Min [facility] Creatinine Clearance (Chem 80.64 [facility] Nucleated erythrocytes [Pres ence] in Blood by Automated countOrdered By: Jimmy Donis on 03-04-2024 Nucleated RBC Auto Ql (Bld) Nucleated erythrocytes [Presence] in Blood by Automated count 0-0.5 [facility] Platelet mean volume Auto (B ld) [Entitic vol]Ordered By: Jimmy Donis on 03-04-2024 Platelet mean volume (Bld) [Entitic vol] Platelet mean volume [Entitic volume] in Blood by Automated count 6.3-10.7 [facility] Platelets Auto (Bld) [#/Vol] Ordered By: Jimmy Donis on 03-04-2024 Platelets (Bld) [#/Vol] Platelets [#/vol ume] in Blood by Automated count 150-450 [facility] Potassium [Moles/volume] in Serum or PlasmaOrdered By: Jimmy Donis on 03-04-2024 Potassium [Moles/Vol] Potassium [Moles/volume] in Serum or Plasma 3.5-5.1 [facility] Protein Test strip (U) [Mass /Vol]Ordered By: Jimmy Donis on 03-04-2024 Protein (U) [Mass/Vol] Protein [Mass/vol ume] in Urine by Test strip Negative [facility] RBC Auto (Bld) [#/Vol]Ordere d By: Jimmy Donis on 03-04-2024 RBC (Bld) [#/Vol] Erythrocytes [#/volume] in Blood by Automated count 3.60-5.00 [facility] Serum or plasma anion gap de terminationOrdered By: Jimmy Donis on 03-04-2024 Anion gap [Moles/Vol] Serum or plasma an ion gap determination High 6.0-15.0 [facility] Sodium [Moles/volume] in Ser um or PlasmaOrdered By: Jimmy Donis on 03-04-2024 Sodium [Moles/Vol] Sodium [Moles/volume ] in Serum or Plasma 136-145 [facility] Specific gravity Test strip (U) [Rel density]Ordered By: Jimmy Donis on 03-04-2024 Specific gravity (U) [Rel density] Specific gravity of Urine by Test strip 1.001-1.030 [facility] Urea nitrogen [Mass/volume] in Serum or PlasmaOrdered By: Jimmy Donis on 03-04-2024 Urea nitrogen [Mass/Vol] Urea nitrogen [Mass/volume] in Serum or Plasma 7-25 [facility] Urobilinogen Test strip (U) [Mass/Vol]Ordered By: Jimmy Donis on 03-04-2024 Urobilinogen (U) [Mass/Vol] Urobilinogen [Mass/volume] in Urine by Test strip Normal [facility] WBC Auto (Bld) [#/Vol]Ordere d By: Jimmy Donis on 03-04-2024 WBC (Bld) [#/Vol] Leukocytes [#/volume ] in Blood by Automated count 3.8-11.6 [facility] pH Test strip (U)Ordered By: Jimmy Dnois on 03-04-2024 pH (U) pH of Urine by Test strip 5.0-9.0 [facility] CNPNon 02-18-2024 CNPN Telephone (NE50MN) MARGEQUENTIN ([id number]) 4 F Date Time Provider Department 02/18/24 DAISY DE LEON NE50MN During your visit today, we recorded the following information about you: Aislinn Lee 02/18/2024 11:50 AM Signed Prior Authorization Needed: Received by: Fax Requested by (pharmacy name): [facility] Phone number: [phone] Name of medication: Lacosamide Brand or Generic: generic Strength and dosage: 50 mg Wk 1: 150/200 Wk 2: 150/150 Wk 3: 100/150 Wk 4: 100/100 Wk 5: 50/100 WK 6: 50/50 Wk 7: 50 at bedtime Wk 8: STOP LCM Quantity Override: No Insurance company name and phone #: [employer] [phone] HUNTER [id number] Patient ID: PCN #: BIN#: Group #: Patient of Asuncion Burris RN 02/18/2024 12:37 PM Signed PA done via CMM. (Hunter: [id number]) PA Rx #: [id number] Status: sent to plan today BRAYDEN Hunter Merlene 02/20/2024 9:28 AM Signed Received approval for Lacosamide 50 mg from [place]. Approval Dates: 02/18/24 - 02/17/25. REF #: [id number] Approval uploaded to [employer]. Asuncion Garcia RN 02/20/2024 9:34 AM Signed [...] by ASUNCION GARCIA on 02/20/24 [facility] Taryn 02-13-2024 [facility] Telephone (NE50MN) QUENTIN BIRD ([id number]) 4 F Date Time Provider Department 02/13/24 DAISY DE LEON NE50MN During your visit today, we recorded the following information about you: Deanna Garcia 02/13/2024 2:26 PM Signed [facility]ication [facility] Vimpat Concern with medication Pharmacy needs clarification on SIG. Patient of Joon Marcano RN 02/13/2024 3:56 PM Signed I spoke with the pharmacist at [facility], titration schedule reviewed. Joon Melton RN Allergies [...] Encounter Status:Closed by JOON POST on 02/13/24 [facility] 02-10-2024 [facility] Telephone (NE50MN) QUENTIN BIRD ([id number]) 4 F Date Time Provider Department 02/10/24 DAISY DE LEON NE50MN During your visit today, we recorded the following information about you: Nahomy Frye 02/10/2024 9:47 AM Signed Medication Concern Person Calling: Fax from [facility] Phone #: [phone] / Name of medication: Lacosamide/Vimpat - 50MG Concern with medication: Clarification request for dosage instructions Directions are missing on the original prescription dated 02/07/[address] De Leon Forwarded to nurse. Asuncion Garcia RN 02/10/2024 10:26 AM Signed Prescription for LCM 50mg tablet. [facility]'s response: Routed for new prescription. BRAYDEN Hunter Kelly, APRN.[facility] 02/10/2024 12:46 PM Signed The following approved medication requests have been transmitted electronically. Requested Prescriptions Signed Prescriptions Disp Refills lacosamide (VIMPAT) 50 mg tab 168 tablet 0 Sig: Wk 1: 150/200 Wk 2: 150/150 Wk 3: 100/150 Wk 4: 100/100 Wk 5: 50/100 WK 6: 50/50 Wk 7: 50 at bedtime Wk 8: STOP LCM Authorizing Provider: ROSELYN MCCULLOUGH APRN.STUMP BLOWER Allergies As of Date: 02/10/2024 (No Known [...] (Discontinued) Please follow wean schedule provided via [employer] Encounter Status:Closed by ROSELYN MCCULLOUGH on 02/10/24 [facility] Telephone (NE50MN) QUENTIN BIRD ([id number]) 4 F Date Time Provider Department 02/07/24 DAISY DE LEON NE50MN During your visit today, we recorded the following information about you: Loreto Ermelinda 02/07/2024 10:34 AM Signed Form received: From (agency / facility / parent): [facility] personal companion (if given): Phone #: [phone] Fax # : [phone] Email: Information requested: Physicians statement Patient of [...] Sig: Please follow wean schedule provided via [employer] Authorizing Provider: HOSEA KU PA-C Rhodes, Alena, PA-C 02/07/2024 4:35 PM Signed The following approved medication requests have been transmitted electronically. 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 - lacosamide (VIMPAT) 50 mg tab Please follow wean schedule provided via [employer] - venlafaxine ER (EFFEXOR XR) 37.5 mg [...] Sig: Please follow wean schedule provided via [employer] LACOSAMIDE 50 MG TABLET 168 * 0 02/07/2024 02/07/2024 Sig: Please follow wean schedule provided via [employer] LACOSAMIDE 50 MG TABLET 168 * 0 02/07/2024 04/07/2024 Cmt: Wk 1: LCM 150/200 Wk 2: LCM 150 BID Wk 3: LCM 100/150 Wk 4: LCM 100 BID Wk 5: LCM 50/100 Wk 6: LCM 50 BID Wk 7: LCM 50 QHS Wk 8: STOP LCM Sig: Please follow wean schedule provided via [employer] Medications Discontinued During This Encounter Prescriptions - [...] Status:Closed by HOSEA KU on 02/07/24 Normal [facility] CNOVon 01-09-2024 CNOV Office Visit (NE50MN ) QUENTIN BIRD ([id number]) 4 F Date Time Provider Department 01/09/24 2:40 PM DAISY DE LEON NE50MN During your visit today, we recorded the following information about you: Pulse Respiration Blood pressure Weight 62/minute 18/minute 114/68 70.3 kg Height Last Period 1.524 m 12/27/23 Daisy De Leon DO 01/09/2024 3:45 PM Signed [facility] Patient Name: Quentin Bird Date of : 2000 ESTABLISHED EPILEPSY CLINIC NOTE 01/09/2024 2:40 PM Reason for Visit: Established Patient and Follow Up Clinical Summary: Ms. Bird is a 23 year old female seen in [facility]. Classification Summary HISTORY OF PRESENT [...] have seizure. 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 Currently holding [...] been having (more content not included)... Normal [facility] 01-09-2024 [facility] Telephone (NE50MN) QUENTIN BIRD ([id number]) 4 F Date Time Provider Department 01/09/24 DAISY DE LEON NE50MN During your visit today, we recorded the following information about you: Asuncion Garcia RN 01/09/2024 4:24 PM Signed Daisy De Leon DO Beitler, Nina, RN Can we please send an order for trough lamotrigine level, CBC, CMP to [facility]? To be drawn after lamotrigine titration complete. Routed for lab orders. BRAYDEN Hunter Ailis, PA-C 01/09/2024 4:29 PM Signed Lab orders placed. TOO Chung Nina, RN 01/09/2024 4:33 PM Signed Lab order form sent to Mario Corona to review and sign via [employer]. BRAYDEN Hunter Nina, RN 01/10/2024 11:29 AM Signed Lab order form signed by Mario Corona via [employer]. [employer] message sent to pt, in this encounter, to confirm laboratory. BRAYDEN Hunter Nina, RN 01/10/2024 2:27 PM Signed Pt will be going to [facility] (fax #: [phone]). Lab order form sent to [facility] (fax #: [phone]) via datango. Confirmation received. 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] Order(s):COMPLETE BLOOD COUNT [SQCBC] Order #: [id number] FUTURE COMPREHENSIVE METABOLIC PANEL [SQCMP] Order #: [id number] FUTURE LAMOTRIGINE [SQLMTR] Order #: [id number] FUTURE Prescriptions as of 01/10/2024 - venlafaxine [...] Status:Closed by ASUNCION GARCIA on 01/10/24 Normal [facility] Alanine aminotransferase [En zymatic activity/volume] in Serum or PlasmaOrdered By: Valdez Manrique on 12-22-2023 ALT [Catalytic activity/Vol] 10 U/L Normal [facility] Comment on above: Performed By: #### C MP, CBC, PRL ####[facility] [id number] [place] [id number] [facility] ALT [Catalytic activity/Vol] Alanine aminotransferase [Enzymatic activity/volume] in Serum or Plasma [facility] Albumin [Mass/volume] in Ser um or Plasma by Bromocresol green (BCG) dye binding methoOrdered By: Valdez Manrique on 12-22-2023 Albumin BCG dye [Mass/Vol] 4.8 g/dL 3.5-5.7 [facility] Albumin BCG dye [Mass/Vol] Albumin [Mass/volume] in Serum or Plasma by Bromocresol green (BCG) dye binding metho 3.5-5.7 [facility] Alkaline phosphatase [Enzyma tic activity/volume] in Serum or PlasmaOrdered By: Valdez Manrique on 12-22-2023 ALP [Catalytic activity/Vol] 74 U/L Normal 34-104 [facility] Comment on above: Performed By: #### C MP, CBC, PRL ####[address] ALP [Catalytic activity/Vol] Alkaline phosphatase [Enzymatic activity/volume] in Serum or Plasma 34-104 [facility] Aspartate aminotransferase [ Enzymatic activity/volume] in Serum or PlasmaOrdered By: Valdez Manrique on 12-22-2023 AST [Catalytic activity/Vol] 12 U/L Low 13-39 [facility] Comment on above: Performed By: #### C MP, CBC, PRL ####[address] AST [Catalytic activity/Vol] Aspartate aminotransferase [Enzymatic activity/volume] in Serum or Plasma Low 1339 [facility] Automated basophil %Ordered By: Valdez Manrique on 12-22-2023 Basophils/100 WBC (Bld) 0.5 % Normal . [facility] Comment on above: Performed By: #### C MP, CBC, PRL ####[address] Automated basophil countOrde red By: Valdez Manrique on 12-22-2023 Basophils (Bld) [#/Vol] 0.0 10*3/uL Normal 0.0-0.2 [facility] Comment on above: Result Comment: PERF ORMED BY: [facility] [address] [place] [address] PATHOLOGIST TEACHING ARTIST OLU MEJIA M.D. Performed By: #### C MP, CBC, PRL ####[address] Automated blood monocyte cou ntOrdered By: Valdez Manrique on 12-22-2023 Monocytes (Bld) [#/Vol] 0.9 10*3/uL High 0.0-0.8 [facility] Comment on above: Performed By: #### C MP, CBC, PRL ####[place] [id number] [address] Automated eosinophil %Ordere d By: Valdez Manrique on 12-22-2023 Eosinophils/100 WBC (Bld) 1.0 % Normal . [facility] Comment on above: Performed By: #### C MP, CBC, PRL ####[address] Automated eosinophil countOr dered By: Valdez Manrique on 12-22-2023 Eosinophils (Bld) [#/Vol] 0.1 10*3/uL Normal 0.0-0.45 [facility] Comment on above: Performed By: #### C MP, CBC, PRL ####[address] Automated monocyte %Ordered By: Valdez Manrique on 12-22-2023 Monocytes/100 WBC (Bld) 10.2 % Normal . [facility] Comment on above: Performed By: #### C MP, CBC, PRL ####[address] Automated neutrophil %Ordere d By: Valdez Manrique on 12-22-2023 Neutrophils/100 WBC (Bld) 55.5 % Normal . [facility] Comment on above: Performed By: #### C MP, CBC, PRL ####[address] Basophils Auto (Bld) [#/Vol] Ordered By: Valdez Manrique on 12-22-2023 Basophils (Bld) [#/Vol] Automated basoph il count 0.0-0.2 [facility] Basophils/100 WBC Auto (Bld) Ordered By: Valdez Manrique on 12-22-2023 Basophils/100 WBC (Bld) Automated basophil % . [facility] Bilirubin.total [Mass/volume ] in Serum or PlasmaOrdered By: Valdez Manrique on 12-22-2023 Bilirubin [Mass/Vol] 0.3 mg/dL Normal 0.3-1.0 [facility] Comment on above: Performed By: #### C MP, CBC, PRL ####[place] [id number] [place] [address] [facility] Bilirubin [Mass/Vol] Bilirubin.total [Mass/volume] in Serum or Plasma 0.3-1.0 [facility] Calcium [Mass/volume] in Ser um or PlasmaOrdered By: Valdez Manrique on 12-22-2023 Calcium [Mass/Vol] 8.8 mg/dL Normal 8.6-10.3 [facility] [place] Comment on above: Performed By: #### C MP, CBC, PRL ####[place] [address] [place] [id number] [facility] Calcium [Mass/Vol] Calcium [Mass/volume ] in Serum or Plasma 8.6-10.3 [facility] Carbon dioxide, total [Moles /volume] in Serum or PlasmaOrdered By: Valdez Manrique on 12-22-2023 CO2 [Moles/Vol] 20.8 mmol/L Low 21.0-31.0 [facility] Comment on above: Performed By: #### C MP, CBC, PRL ####[place] [id number] [facility] CO2 [Moles/Vol] Carbon dioxide, tota l [Moles/volume] in Serum or Plasma Low 21.0-31.0 [facility] Chloride [Moles/volume] in S benedicto or PlasmaOrdered By: Valdez Manrique on 12-22-2023 Chloride [Moles/Vol] 104 mmol/L Normal 98-107 [facility] Comment on above: Performed By: #### C MP, CBC, PRL ####[place] [address] [place] [address] [facility] Chloride [Moles/Vol] Chloride [Moles/volume] in Serum or Plasma 98-107 [facility] Complete Blood Count Auto Di ffon 12-22-2023 Mean Corpuscular HGB Conc 34.3 g/dL Normal 32.0-35.0 [facility] Comment on above: Performed By: #### C MP, CBC, PRL ####[place] [id number] [place] Monocytes/100 WBC (Bld) 16.10 % Normal 0.00-20.00 [facility] Comment on above: Performed By: #### C MP, CBC, PRL ####[address] NRBC% 0.1 /100{WBC} Normal 0-0.5 [facility] Comment on above: Performed By: #### C MP, CBC, PRL ####[place] [id number] [facility] Comprehensive Metabolic Pane bridger 12-22-2023 Albumin [Mass/Vol] 4.8 g/dL Normal 3.5-5.7 [facility] Comment on above: Performed By: #### C MP, CBC, PRL ####[address] Creatinine Clr Calc Pharmacy 78.96 Normal [facility] Comment on above: Performed By: #### C MP, CBC, PRL ####[address] GFR/1.73 sq M.predicted MDRD (S/P/Bld) [Vol rate/Area] mL/min/{1.73_m2} Normal [facility] Comment on above: Performed By: #### C MP, CBC, PRL ####[place] [id number] [facility] Creatinine [Mass/volume] in Serum or PlasmaOrdered By: Valdez Manrique on 12-22-2023 Creatinine [Mass/Vol] 0.97 mg/dL Normal 0.60-1.20 [facility] Comment on above: Performed By: #### C MP, CBC, PRL ####[place] [id number] [facility] Creatinine [Mass/Vol] Creatinine [Mass/volume] in Serum or Plasma 0.60-1.20 [facility] ECG 12 lead ECGon 12-22-2023 ECG 12 lead ECG [facility] [address] [place] [address] [place] [address] Electrocardiograph Report Signed Patient: Quentin Bird MR#: [id number] : 2000 Acct:[id number] Age/Sex: 23 / F ADM Date: 12/22/23 Loc: ER Room: [facility] ER Attending Dr: Ordering Provider: Valdez [...] ST abnormality Confirmed by Abraham Hilton DO ([id number]) on 12/22/2023 7:52:16 PM Referred By: Electronically Signed By: Abraham Hilton DO Transcribed By: MUS Signed By Abraham Hilton DO 1949 Normal [facility] Eosinophils Auto (Bld) [#/Vo l]Ordered By: Valdez Manrique on 12-22-2023 Eosinophils (Bld) [#/Vol] Automated eosinophil count 0.0-0.45 [facility] Eosinophils/100 WBC Auto (Bl d)Ordered By: Valdez Manrique on 12-22-2023 Eosinophils/100 WBC (Bld) Automated eosinophil % . [facility] Erythrocyte distribution wid th Auto (RBC) [Ratio]Ordered By: Valdez Manrique on 12-22-2023 Erythrocyte distribution width (RBC) [Ratio] Erythrocyte distribution width [Ratio] by Automated count 11.9-15.3 [facility] Erythrocyte distribution wid th [Ratio] by Automated countOrdered By: Valdez Manrique on 12-22-2023 Erythrocyte distribution width (RBC) [Ratio] 13.4 % Normal 11.9-15.3 [facility] Comment on above: Performed By: #### C MP, CBC, PRL ####[facility] [id number] [place] [id number] [facility] Erythrocytes [#/volume] in B lood by Automated countOrdered By: Valdez Manrique on 12-22-2023 RBC (Bld) [#/Vol] 4.36 10*6/uL Normal 3.60-5.00 [facility] Comment on above: Performed By: #### C MP, CBC, PRL ####[facility] [id number] [place] [id number] [facility] Globulin Calc (S) [Mass/Vol] Ordered By: Valdez Manrique on 12-22-2023 Globulin (S) [Mass/Vol] Serum globulin measurement by calculation (mass/volume) [facility] Glucose [Mass/volume] in Ser um or PlasmaOrdered By: Valdez Manrique on 12-22-2023 Glucose [Mass/Vol] 93 mg/dL Normal 70-100 [facility] [place] Comment on above: ADA recommended refe rence rangeRandom Glucose Reference Range is dependent on time and content of last meal. Glucose of more than 200 mg/dL in a nonstressed, ambulatory subject supports the diagnosis of Diabetes Mellitus. Result Comment: [place] Glucose Reference Range is dependent on time and content of last meal. Glucose of more than 200 mg/dL in a nonstressed, ambulatory subject supports the diagnosis of Diabetes Mellitus. ADA recommended reference range Performed By: #### C MP, CBC, PRL ####[facility] [id number] [place] [id number] [facility] Glucose [Mass/Vol] Glucose [Mass/volume ] in Serum or Plasma 70-100 [facility] Comment on above: ADA recommended refe rence rangeRandom Glucose Reference Range is dependent on time and content of last meal. Glucose of more than 200 mg/dL in a nonstressed, ambulatory subject supports the diagnosis of Diabetes Mellitus. Hematocrit Auto (Bld) [Volum e fraction]Ordered By: Valdez Manrique on 12-22-2023 Hematocrit (Bld) [Volume fraction] Hematocrit [Volume Fraction] of Blood by Automated count 34.0-46.4 [facility] Hematocrit [Volume Fraction] of Blood by Automated countOrdered By: Valdez Manrique on 12-22-2023 Hematocrit (Bld) [Volume fraction] 40.5 % Normal 34.0-46.4 [facility] Comment on above: Performed By: #### C MP, CBC, PRL ####[facility] [id number] [place] [id number] [facility] Hemoglobin [Mass/volume] in BloodOrdered By: Valdez Manrique on 12-22-2023 Hemoglobin (Bld) [Mass/Vol] 13.9 g/dL Normal 11.8-15.4 [facility] Comment on above: Performed By: #### C MP, CBC, PRL ####[facility] [id number] Hemoglobin (Bld) [Mass/Vol] Hemoglobin [Mass/volume] in Blood 11.8-15.4 [facility] Leukocytes [#/volume] correc chandan for nucleated erythrocytes in Blood by Automated counOrdered By: Valdez Manrique on 12-22-2023 WBC corrected for nucl RBC Auto (Bld) [#/Vol] 9.2 10*3/uL 3.8-11.6 [facility] WBC corrected for nucl RBC Auto (Bld) [#/Vol] Leukocytes [#/volume] corrected for nucleated erythrocytes in Blood by Automated coun 3.8-11.6 [facility] Leukocytes [#/volume] in Blo od by Automated countOrdered By: Valdez Manrique on 12-22-2023 WBC (Bld) [#/Vol] 9.2 10*3/uL Normal 3.8-11.6 [facility] [place] Comment on above: Performed By: #### C MP, CBC, PRL ####[facility] [address] [place] [address] Lymphocytes Auto (Bld) [#/Vo l]Ordered By: Valdez Manrique on 12-22-2023 Lymphocytes (Bld) [#/Vol] Lymphocytes [#/volume] in Blood by Automated count 1.00-4.8 [facility] Lymphocytes [#/volume] in Bl ood by Automated countOrdered By: Valdez Manrique on 12-22-2023 Lymphocytes (Bld) [#/Vol] 3.0 10*3/uL Normal 1.00-4.8 [facility] Comment on above: Performed By: #### C MP, CBC, PRL ####[address] Lymphocytes/100 WBC Auto (Bl d)Ordered By: Valdez Manrique on 12-22-2023 Lymphocytes/100 WBC (Bld) Lymphocytes/100 leukocytes in Blood by Automated count . [facility] Lymphocytes/100 leukocytes i n Blood by Automated countOrdered By: Valdez Manrique on 12-22-2023 Lymphocytes/100 WBC (Bld) 32.8 % Normal . [facility] Comment on above: Performed By: #### C MP, CBC, PRL ####[facility] [id number] MCH Auto (RBC) [Entitic mass ]Ordered By: Valdez Manrique on 12-22-2023 MCH (RBC) [Entitic mass] MCH [Entitic mass] by Automated count 24.7-34.3 [facility] MCH [Entitic mass] by Automa chandan countOrdered By: Valdez Manrique on 12-22-2023 MCH (RBC) [Entitic mass] 31.9 pg Normal 24.7-34.3 [facility] Comment on above: Performed By: #### C MP, CBC, PRL ####[address] MCHC Auto (RBC) [Mass/Vol]Or dered By: Valdez Manrique on 12-22-2023 MCHC (RBC) [Mass/Vol] 34.3 g/dL 32.0-35.0 [facility] MCHC (RBC) [Mass/Vol] MCHC [Mass/volume] by Automated count 32.0-35.0 [facility] MCV Auto (RBC) [Entitic vol] Ordered By: Valdez Manrique on 12-22-2023 MCV (RBC) [Entitic vol] MCV [Entitic vol ume] by Automated count 80-100 [facility] MCV [Entitic volume] by Auto mated countOrdered By: Valdez Manrique on 12-22-2023 MCV (RBC) [Entitic vol] 92.8 fL Normal 80-100 [facility] Comment on above: Performed By: #### C MP, CBC, PRL ####[facility] [id number] [place] [address] Monocyte distribution width [Entitic volume] in Blood by AutomatedOrdered By: Valdez Manrique on 12-22-2023 Monocyte distribution width Auto (Bld) [Entitic vol] 16.10 % 0.00-20.00 [facility] Monocyte distribution width Auto (Bld) [Entitic vol] Monocyte distribution width [Entitic volume] in Blood by Automated 0.00-20.00 [facility] Monocytes Auto (Bld) [#/Vol] Ordered By: Valdez Manrique on 12-22-2023 Monocytes (Bld) [#/Vol] Automated blood monocyte count High 0.0-0.8 [facility] Monocytes/100 WBC Auto (Bld) Ordered By: Valdez Manrique on 12-22-2023 Monocytes/100 WBC (Bld) Automated monocyte % . [facility] Neutrophils Auto (Bld) [#/Vo l]Ordered By: Valdez Manrique on 12-22-2023 Neutrophils (Bld) [#/Vol] Neutrophils [#/volume] in Blood by Automated count 1.8-7.7 [facility] Neutrophils [#/volume] in Bl ood by Automated countOrdered By: Valdez Manrique on 12-22-2023 Neutrophils (Bld) [#/Vol] 5.1 10*3/uL Normal 1.8-7.7 [facility] Comment on above: Performed By: #### C MP, CBC, PRL ####[facility] [id number] Neutrophils/100 WBC Auto (Bl d)Ordered By: Valdez Manrique on 12-22-2023 Neutrophils/100 WBC (Bld) Automated neutrophil % . [facility] No Panel InformationOrdered By: Valdez Manrique on 12-22-2023 Estimated GFR (CKD-EPI) > 60.0 mL/Min [facility] Creatinine Clearance (Chem 78.96 [facility] Nucleated erythrocytes [Pres ence] in Blood by Automated countOrdered By: Valdez Manrique on 12-22-2023 Nucleated RBC Auto Ql (Bld) 0.1 /100{WBC} 0-0.5 [facility] Nucleated RBC Auto Ql (Bld) Nucleated erythrocytes [Presence] in Blood by Automated count 0-0.5 [facility] Platelet mean volume Auto (B ld) [Entitic vol]Ordered By: Valdez Manrique on 12-22-2023 Platelet mean volume (Bld) [Entitic vol] Platelet mean volume [Entitic volume] in Blood by Automated count 6.3-10.7 [facility] Platelet mean volume [Entiti c volume] in Blood by Automated countOrdered By: Valdez Manrique on 12-22-2023 Platelet mean volume (Bld) [Entitic vol] 8.4 fL Normal 6.3-10.7 [facility] Comment on above: Performed By: #### C MP, CBC, PRL ####[address] Platelets Auto (Bld) [#/Vol] Ordered By: Valdez Manrique on 12-22-2023 Platelets (Bld) [#/Vol] Platelets [#/vol ume] in Blood by Automated count 150-450 [facility] Platelets [#/volume] in Bloo d by Automated countOrdered By: Valdez Manrique on 12-22-2023 Platelets (Bld) [#/Vol] 296 10*3/uL Normal 150-450 [facility] Comment on above: Performed By: #### C MP, CBC, PRL ####[place] [id number] [facility] Potassium [Moles/volume] in Serum or PlasmaOrdered By: Valdez Manrique on 12-22-2023 Potassium [Moles/Vol] 3.6 mmol/L Normal 3.5-5.1 [facility] Comment on above: Performed By: #### C MP, CBC, PRL ####[place] [id number] [facility] Potassium [Moles/Vol] Potassium [Moles/volume] in Serum or Plasma 3.5-5.1 [facility] Prolactinon 12-22-2023 Prolactin 118.42 ng/mL High 3.34-26.72 [facility] Comment on above: Result Comment: PERF ORMED BY: [facility] [address] [place] [id number] PATHOLOGIST TEACHING ARTIST OLU MEJIA M.D. Performed By: #### C MP, CBC, PRL ####[place] [id number] [facility] Prolactin [Mass/volume] in S benedicto or PlasmaOrdered By: Valdez Manrique on 12-22-2023 Prolactin [Mass/Vol] 118.42 ng/mL High 3.34-26.72 [facility] Prolactin [Mass/Vol] Prolactin [Mass/volume] in Serum or Plasma High 3.34-26.72 [facility] Protein [Mass/volume] in Ser um or PlasmaOrdered By: Valdez Manrique on 12-22-2023 Protein [Mass/Vol] 7.9 g/dL Normal 6.4-8.9 [facility] [place] Comment on above: Performed By: #### C MP, CBC, PRL ####[facility] [id number] Protein [Mass/Vol] Protein [Mass/volume ] in Serum or Plasma 6.4-8.9 [facility] RBC Auto (Bld) [#/Vol]Ordere d By: Valdez Manrique on 12-22-2023 RBC (Bld) [#/Vol] Erythrocytes [#/volume] in Blood by Automated count 3.60-5.00 [facility] Serum globulin measurement b y calculation (mass/volume)Ordered By: Valdez Manrique on 12-22-2023 Globulin (S) [Mass/Vol] 3.1 g/dL Normal [facility] Comment on above: Performed By: #### C MP, CBC, PRL ####[facility] [id number] Serum or plasma albumin/glob ulin mass ratioOrdered By: Valdez Manrique on 12-22-2023 Albumin/Globulin [Mass ratio] 1.5 {ratio} Normal [facility] Comment on above: Performed By: #### C MP, CBC, PRL ####[facility] [id number] Albumin/Globulin [Mass ratio] Serum or plasma albumin/globulin mass ratio [facility] Serum or plasma anion gap de terminationOrdered By: Valdez Manrique on 12-22-2023 Anion gap [Moles/Vol] 17.8 mmol/L High 6.0-15.0 [facility] Comment on above: Performed By: #### C MP, CBC, PRL ####[place] [id number] [place] [id number] [facility] Anion gap [Moles/Vol] Serum or plasma an ion gap determination High 6.0-15.0 [facility] Sodium [Moles/volume] in Ser um or PlasmaOrdered By: Valdez Manrique on 12-22-2023 Sodium [Moles/Vol] 139 mmol/L Normal 136-145 [facility] Comment on above: Performed By: #### C MP, CBC, PRL ####[facility] [place] [id number] [facility] Sodium [Moles/Vol] Sodium [Moles/volume ] in Serum or Plasma 136-145 [facility] Urea nitrogen [Mass/volume] in Serum or PlasmaOrdered By: Valdez Manrique on 12-22-2023 Urea nitrogen [Mass/Vol] 6 mg/dL Low 7-25 [facility] Comment on above: Performed By: #### C MP, CBC, PRL ####[facility] [id number] [place] [id number] [facility] Urea nitrogen [Mass/Vol] Urea nitrogen [Mass/volume] in Serum or Plasma Low 7-25 [facility] WBC Auto (Bld) [#/Vol]Ordere d By: Valdez Manrique on 12-22-2023 WBC (Bld) [#/Vol] Leukocytes [#/volume ] in Blood by Automated count 3.8-11.6 [facility] Taryn 12-19-2023 KRYSTALN Telephone (NE50MN) QUENTIN BIRD ([id number]) 4 F Date Time Provider Department 12/19/23 DAISY DE LEON NE50MN During your visit today, we recorded the following information about you: Joellen Breaux 12/19/2023 8:01 AM Signed Prior Authorization Needed: Received by: Fax Requested by (pharmacy name): [facility] Phone number: [phone] Name of medication: Nayzilam Strength and dosage: 5mgSig: Use 1 spray in one nostril as needed for seizures lasting longer than 2 minutes. Insurance company name and phone #: CMM HUNTER: [id number] Patient ID: PCN #: BIN#: Group #: Patient of Dr. De Leon Forwarded to nurse. Asuncion Garcia RN 12/19/2023 11:04 AM Signed PA done via CMM. (Hunter: [id number]) PA Rx #: [id number] Status: sent to plan. BRAYDEN Hunter Nina, [...] Encounter Status:Closed by ASUNCION GARCIA on 12/19/23 [facility] 11-19-2023 [facility] Telephone (NE50MN) QUENTIN BIRD ([id number]) 4 F Date Time Provider Department 11/19/23 DAISY DE LEON NE50MN During your visit today, we recorded the following information about you: Joellen Breaux 11/19/2023 9:09 AM Signed Form received: From (agency / facility): BMV personal companion (if given): Quentin Bird Phone #: [phone] (home) Fax # : [phone] Information requested: Request for physician statement Patient of Dr. De Leon Forwarded to nurse. Asuncion Garcia RN 11/19/2023 12:54 PM Signed BMV form received. Onset- 4 years (2019) Last SZ- 09/08/2023 BMV form is for ID purposes only. BMV form sent to Dr. De Leon to review and sign via Schoolfy. BRAYDEN Hunter Nina, RN 11/19/2023 1:07 PM Signed BMV form signed by Dr. De Leon via DocuSign. Copies sent to onMC2, pt e-mail and BMV special unit via School[employer]. Asuncion Garcia RN Allergies As of Date: 11/19/2023 (No Known Allergies) Date Reviewed: 11/13/2023 Reviewed by: Ramona Crabtree MA - Fully Assessed Reason for Visit: Forms [913] Cmt: BMV Prescriptions as of 11/19/2023 - [...] Encounter Status:Closed by ASUNCION GARCIA on [facility]/19/23 [facility] Telephone (NE50MN) QUENTIN BIRD ([id number]) 4 F Date Time Provider Department 11/14/23 DAISY DE LEON NE50MN During your visit today, we recorded the following information about you: Asuncion Garcia RN 11/14/2023 8:46 AM Signed BMV form received, pt did not fill out top portion and sign. [employer] message sent to pt, in this encounter. [...] Status:Closed by ASUNCION GARCIA on 11/18/23 Normal [facility] CNOVon 11-13-2023 CNOV Office Visit (NE50MN ) QUENTIN BIRD ([id number]) 4 F Date Time Provider Department 11/13/23 3:20 PM DAISY DE LEON NE50MN During your visit today, we recorded the following information about you: Pulse Blood pressure Weight Height 86/minute 109/63 68 kg 1.524 m Daisy De Leon DO 11/19/2023 9:49 AM Signed [facility] [place] [facility] Patient Name: Quentin BANEGAS Date of : 2000 INITIAL EPILEPSY CLINIC NOTE 11/13/2023 3:20 PM CHIEF COMPLAINT: New Patient (New NI Patient ) HISTORY OF PRESENT ILLNESS Ms. Bird is a 23 year old female seen in [facility] for initial consultation. [...] have seizure. 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 Currently holding [...] She is currently seeing a PCP at [facility]. Total # of Current Anti-seizure Medications: [...] Anti-seizure Therapies: (more content not included)... Normal [facility] IGP,APTIMA HPV,AGE GDLNon AGE GDLN ACOG TESTING Note . [facility] Comment on above: TESTS RESULT FLAG UN ITS REF RANGE LAB Clinician Provided Cytology Information Source.............Cervix;Endocervix No. of containers..01 ThinPrep Vial Age Algo ACOG Ramu... FLAG LEGEND: L-Low Normal,H-High Normal,LL-Alert Low,HH-Alert High <-Panic Low,>-Panic High,A-Abnormal,AA-Critical Abnormal Performed at: 01 =[facility] [address] [place] [address] Johanna Watson MD, IGP, RFX APTIMA HPV ASCU Note . [facility] Comment on above: TESTS RESULT FLAG UN ITS REF RANGE LAB DIAGNOSIS: 02 NEGATIVE FOR INTRAEPITHELIAL LESION OR MALIGNANCY. Specimen adequacy: 02 Satisfactory for evaluation. Endocervical and/or squamous metaplastic cells (endocervical component) are present. Performed by: 02 Nory Patrick, Studio Musician ([facility]) . 02 Note: Note 02 The [...] <-Panic Low,>-Panic High,A-Abnormal,AA-Critical Abnormal Performed at: [address] [address] Johanna Watson MD, Performed at: =[facility] [id number] Laboratory Sample Carrier: Johanna Watson MD, Phone: [phone] Performed at: [address] [id number] Laboratory Sample Carrier: Johanna Watson MD, Phone: [phone] BRUSH-SPATULA CERVIX ENDOCERVIX CL[facility] URETHRITIS/DISCHARGE PLUS VA GINITIS (HTRX)on 10-30-2023 ATOPOBIUM VAGINAE 26.070 Abnormal [facility] ATOPOBIUM VAGINAE Detected Abnormal [facility] BVAB 2,3 (BACTERIAL VAGINOSIS ASSOCIATED BACTERIA 2, 3); MOBILUNCUS SPP 0.000 [facility] BVAB 2,3 (BACTERIAL VAGINOSIS ASSOCIATED BACTERIA [...] [facility] CNPNon 09-16-2023 [facility] Telephone (NE50MN) MARGEQUENTIN ([id number]) 4 F Date Time Provider Department 09/16/23 CARLA RICO NE50MN During your visit today, we recorded the following information about you: Joellen Breaux 09/16/2023 10:38 AM Signed Prior Authorization Needed: Received by: Fax Requested by (pharmacy name): [facility] Phone number: [phone] Name of medication: LCM Strength and dosage: 200mg Take 1 tablet by mouth two times a day. 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 Insurance company name and phone #: CMM HUNTER: [id number] Patient ID: PCN #: BIN#: Group #: Patient of Dr. Simms Forwarded to nurse. Sommer Carrillo RN 09/16/2023 11:08 AM Signed Spoke with PA department, no PA is needed. Sommer Carrillo RN Allergies As of Date: 09/16/2023 (No Known Allergies) Date Reviewed: 08/13/2023 Reviewed by: Radha Crawley MA - Fully Assessed Reason for Visit: Medication Authorization [1699] Cmt: Lacosamide Prescriptions as of 09/16/2023 - [...] Encounter Status:Closed by SOMMER CARRILLO on 09/16/23 [facility] CNPAmanda 09-09-2023 CNPN Telephone (NEPEMN) QUENTIN BIRD ([id number]) 4 F Date Time Provider Department 09/09/23 [...] recommendation Routed to Dr. Holland James RN Carla Rico MD 09/09/2023 6:12 PM [...] Encounter Status:Closed by CARLA RICO on 09/10/23 [facility] CNOVon 08-13-2023 CNOV Office Visit (NEPEMN ) QUENTIN BIRD Rodo ([id number]) 4 F Date Time Provider Department 08/13/23 2:00 PM CARLA RICO During your visit today, we recorded the following information about you: Temperature Pulse Respiration Blood pressure 97.6 degrees 73/minute 20/minute 117/69 Weight Height Last Period 71.9 kg 1.524 m 07/28/23 Carla Rico MD 08/13/2023 7:51 PM Signed [facility] Section of Pediatric Epilepsy/Neurology Epilepsy [facility], [facility] [place] Date of Service: 02/01/2023 RETURN VISIT NOTE [...] had a (more content not included)... Normal [facility] CNOVon 04-29-2023 CNOV Office Visit (NESLFV ) QUENTIN BIRD ([id number]) 4 F Date Time Provider Department 04/29/23 1:00 PM THAO PAGAN During your visit today, we recorded the following information about you: Pulse Blood pressure Weight Height 70/minute 104/70 71.8 kg 1.524 m Thao Pagan MD 04/29/2023 3:25 PM Signed [facility] New Patient Evaluation PATIENT NAME: Quentin Bird DATE OF SERVICE: April 29, 2023 CONSULTING PROVIDER: Carla Chowdary [address] [facility] [id number] REASON FOR CONSULT: Carla Chowdary sends the [...] negative study. 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 Normal [facility] 25(OH)D3 [facility] 2022 25-hydroxyvitamin D3 [Mass/Vol] 29.0 ng/mL Low 31.0-80.0 [facility] Comment on above: Order Comment: Speci men Type: BLOOD SPECIMEN Ordering Facility: [facility] Address: [address] [place] [address] Result Comment: Clas sification of 25 [place] Vitamin D status: Deficiency/Insufficiency: < or = 30 ng/ml. Sufficiency/Optimal Levels: 31-80 ng/mL Toxicity: > 100 ng/mL. Test performed by chemiluminescent immunoassay. Performed By: #### 1 989-3 #### [facility] CLIA [id number] [address] [place] [address] [place] CNOVon 02-01-2023 CN Office Visit ([facility] ) QUENTIN BIRD ([id number]) 4 F Date Time Provider Department 02/01/23 3:40 PM CARLA RICO [facility] During your visit today, we recorded the following information about you: Pulse Blood pressure Weight Height 67/minute 117/70 68.4 kg 1.545 m Carla Rico MD 02/01/2023 4:38 PM Signed [facility] Section of Pediatric Epilepsy/Neurology Epilepsy Center, [facility] [place] Date of Service: 02/01/2023 RETURN VISIT NOTE HISTORY SINCE LAST VISIT: The patient has returned for follow-up regarding well controlled RAHEEL. 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 [id number]-vv-[id number]-[id number] carb-vit K (WOMEN'S MULTIVITAMIN) 18 mg-400 mcg- [...] benefits, an (more content not included)... Normal [facility] LACOSAMIDEon 02-01-2023 DESMETHYLLACOSAMIDE 0.9 ug/mL Normal <2.6 [facility] Comment on above: Order Comment: Manuela lockett Type: BLOOD SPECIMEN Ordering Facility: [facility] Address: [address] [place] [address] Result Comment: Expe cted concentration of patients receiving 200-400 mg/day is up to 2.5 ug/mL for Desmethyllacosamide. This test was developed and its performance characteristics determined by [facility]ology [facility] [place] ([facility]). It has not been cleared or approved by the FDA. [facility] is regulated under CLIA as qualified to perform high-complexity testing. This test is used for clinical purposes. It should not be regarded as investigational or for research. Performed By: #### L ACOS #### [facility] CLIA [id number] [address] [place] [address] [place] Lacosamide [Mass/Vol] 6.2 ug/mL Normal 2.2-19.8 [facility] Comment on above: Order Comment: Manuela lockett Type: BLOOD SPECIMEN Ordering Facility: [facility] Address: [address] [place] [address] Result Comment: Expe cted concentration of patients receiving 200-400 mg/day is 2.2-19.8 ug/mL for Lacosamide. This test was developed and its performance characteristics determined by [facility] [place] ([facility]). It has not been cleared or approved by the FDA. [facility] is regulated under CLIA as qualified to perform high-complexity testing. This test is used for clinical purposes. It should not be regarded as investigational or for research. Performed By: #### L ACOS #### [facility] CLIA [id number] [facility] [place] [address] [place] Vital Signs Date Time Vital Sign Value Performing Clinician Faci lity 10-13-2024 08:35-0400 Body mass index (BMI) [Ratio] 27.3 kg/m2 Jennifer Justice PA Work Phone: [facility] 10-13-2024 08:35-0400 Body weight 65.55 kg Jennifer Highland PA Work Phone: [facility] 10-13-2024 08:35-0400 Diastolic blood pressure 60 mm[Hg] Jennifer Justice PA Work Phone: [facility] 10-13-2024 08:35-0400 Systolic blood pressure 102 mm[Hg] Jennifer Justice PA Work Phone: [facility] 10-06-2024 10:08-0400 Body mass index (BMI) [Ratio] 26.79 kg/m2 Jennifer Highland PA Work Phone: [facility] 10-06-2024 10:08-0400 Body weight 64.32 kg Jennifer Highland PA Work Phone: [facility] 10-06-2024 10:08-0400 Diastolic blood pressure 64 mm[Hg] Jennifer Highland PA Work Phone: [facility] 10-06-2024 10:08-0400 Systolic blood pressure 104 mm[Hg] Jennifer Justice PA Work Phone: [facility] 09-16-2024 10:07-0400 Body mass index (BMI) [Ratio] 27.63 kg/m2 Andreas Samson [employer] Work Phone: [facility] 09-16-2024 10:07-0400 Body weight 66.34 kg Andreas Chapin [employer] Work Phone: [facility] 09-16-2024 10:07-0400 Diastolic blood pressure 72 mm[Hg] Andreas Chapin [employer] Work Phone: [facility] 09-16-2024 10:07-0400 Systolic blood pressure 106 mm[Hg] Andreas Chapin [employer] Work Phone: [facility] 08-27-2024 12:31-0400 Body weight 71.4 kg Nory Wilkinsman [employer] Work Phone: [facility] 08-27-2024 12:31-0400 Diastolic blood pressure 72 mm[Hg] Nory Aguilar [employer] Work Phone: [facility] 08-27-2024 12:31-0400 Heart rate 88 /min Nory Aguilar [employer] Work Phone: [facility] 08-27-2024 12:31-0400 SaO2% (BldA) [Mass fraction] 99 % Nory Wilkinsman [employer] Work Phone: [facility] 08-27-2024 12:31-0400 Systolic blood pressure 108 mm[Hg] Nory Wilkinsman [employer] Work Phone: [facility] 08-26-2024 14:23-0400 Body mass index (BMI) [Ratio] 27.74 kg/m2 Jonathan Clara DO Work Phone: [facility] 08-26-2024 14:23-0400 Body weight 66.59 kg Jonathan Clara DO Work Phone: [facility] 08-26-2024 14:23-0400 Diastolic blood pressure 68 mm[Hg] Jonathan Clara DO Work Phone: [facility] 08-26-2024 14:23-0400 Systolic blood pressure 104 mm[Hg] Jonathan Clara DO Work Phone: [facility] 06-18-2024 15:28-0400 Body mass index (BMI) [Ratio] 30.04 kg/m2 Christopher Ren DO Work Phone: [facility] 06-18-2024 15:28-0400 Body weight 72.12 kg Christopher Ren DO Work Phone: [facility] 06-18-2024 15:28-0400 Diastolic blood pressure 72 mm[Hg] Christopher Ren DO Work Phone: [facility] 06-18-2024 15:28-0400 Heart rate 79 /min Gabi Mcclure DO Work Phone: [facility] 06-18-2024 15:28-0400 SaO2% (BldA) [Mass fraction] 98 % Gabi Mcclure DO Work Phone: [facility] 06-18-2024 15:28-0400 Systolic blood pressure 106 mm[Hg] Gabi Mcclure DO Work Phone: [facility] 04-13-2024 16:16-0500 Body height 154.9 cm Nory Aguilar [employer] Work Phone: [facility] 04-13-2024 16:16-0500 Body mass index (BMI) [Ratio] 30.16 kg/m2 Nory Aguilar [employer] Work Phone: [facility] 04-13-2024 16:16-0500 Body weight 72.39 kg Nory Aguilar [employer] Work Phone: [facility] 04-13-2024 16:16-0500 Diastolic blood pressure 78 mm[Hg] Nory Aguilar [employer] Work Phone: [facility] 04-13-2024 16:16-0500 Heart rate 64 /min Nory Aguilar [employer] Work Phone: [facility] 04-13-2024 16:16-0500 Systolic blood pressure 108 mm[Hg] Nory Aguilar [employer] Work Phone: [facility] 03-16-2024 17:51-0500 Body temperature 99.6 [degF] PHYSICIAN NO [facility] 03-16-2024 17:51-0500 Diastolic blood pressure 53 mm[Hg] PHYSICIAN NO [facility] 03-16-2024 17:51-0500 Heart rate 119 /min PHYSICIAN NO [facility] 03-16-2024 17:51-0500 Respiratory rate 18 /min PHYSICIAN NO [facility] 03-16-2024 17:51-0500 SaO2% (BldA) [Mass fraction] 99 % PHYSICIAN NO [facility] 03-16-2024 17:51-0500 Systolic blood pressure 101 mm[Hg] PHYSICIAN NO [facility] 03-16-2024 13:37-0500 Body height 152.4 cm PHYSICIAN NO [facility] 03-16-2024 13:37-0500 Body weight 71.25 kg PHYSICIAN NO [facility] 03-04-2024 09:54-0500 Diastolic blood pressure 73 mm[Hg] PHYSICIAN NO [facility] 03-04-2024 09:54-0500 Heart rate 95 /min PHYSICIAN NO [facility] 03-04-2024 09:54-0500 Respiratory rate 20 /min PHYSICIAN NO [facility] 03-04-2024 09:54-0500 SaO2% (BldA) [Mass fraction] 100 % PHYSICIAN NO [facility] 03-04-2024 09:54-0500 Systolic blood pressure 147 mm[Hg] PHYSICIAN NO [facility] 03-04-2024 09:06-0500 Body height 152.4 cm PHYSICIAN NO [facility] 03-04-2024 09:06-0500 Body temperature 98.8 [degF] PHYSICIAN NO [facility] 03-04-2024 09:06-0500 Body weight 68.07 kg PHYSICIAN NO [facility] 01-09-2024 14:30-0500 Body height 152.4 cm Daisy Chiprean DO Work Phone: [facility] 01-09-2024 14:30-0500 Body mass index (BMI) [Ratio] 30.27 kg/m2 Daisy Chiprean DO Work Phone: [facility] 01-09-2024 14:30-0500 Body weight 70.31 kg Daisy Chiprean DO Work Phone: [facility] 01-09-2024 14:30-0500 Diastolic blood pressure 68 mm[Hg] Daisy Chiprean DO Work Phone: [facility] 01-09-2024 14:30-0500 Heart rate 62 /min Daisy Chiprean DO Work Phone: [facility] 01-09-2024 14:30-0500 Respiratory rate 18 /min Daisy De Leon DO Work Phone: [facility] 01-09-2024 14:30-0500 SaO2% (BldA) [Mass fraction] 98 % Daisy De Leon DO Work Phone: [facility] 01-09-2024 14:30-0500 Systolic blood pressure 114 mm[Hg] Daisy De Leon DO Work Phone: [facility] 12-22-2023 18:17-0500 Diastolic blood pressure 67 mm[Hg] PHYSICIAN NO [facility] 12-22-2023 18:17-0500 Heart rate 125 /min PHYSICIAN NO [facility] 12-22-2023 18:17-0500 Respiratory rate 18 /min PHYSICIAN NO [facility] 12-22-2023 18:17-0500 SaO2% (BldA) [Mass fraction] 100 % PHYSICIAN NO [facility] 12-22-2023 18:17-0500 Systolic blood pressure 125 mm[Hg] PHYSICIAN NO [facility] 12-22-2023 16:55-0500 Body height 152.4 cm PHYSICIAN NO [facility] 12-22-2023 16:55-0500 Body temperature 97.6 [degF] PHYSICIAN NO [facility] 12-22-2023 16:55-0500 Body weight 68.03 kg PHYSICIAN NO [facility] 12-16-2023 09:47-0400 Body mass index (BMI) [Ratio] 31.91 kg/m2 Jennifer CALLAWAY Work Phone: [facility] 12-16-2023 09:47-0400 Body weight 74.12 kg Jennifer CALLAWAY Work Phone: [facility] 12-16-2023 09:47-0400 Diastolic blood pressure 64 mm[Hg] Jennifer CALLAWAY Work Phone: [facility] 12-16-2023 09:47-0400 Systolic blood pressure 102 mm[Hg] Jennifer Rendon PA Work Phone: [facility] 11-13-2023 14:58-0400 Body height 152.4 cm Daisy Chiprean DO Work Phone: [facility] 11-13-2023 14:58-0400 Body mass index (BMI) [Ratio] 29.29 kg/m2 Daisy Chiprean DO Work Phone: [facility] 11-13-2023 14:58-0400 Body weight 68.04 kg Daisy Chiprean DO Work Phone: [facility] 11-13-2023 14:58-0400 Diastolic blood pressure 63 mm[Hg] Daisy Chiprean DO Work Phone: [facility] 11-13-2023 14:58-0400 Heart rate 86 /min Daisy Chiprean DO Work Phone: [facility] 11-13-2023 14:58-0400 Systolic blood pressure 109 mm[Hg] Daisy Chiprean DO Work Phone: [facility] 10-28-2023 15:34-0400 Body height 152.4 cm Jonathan Clara DO Work Phone: [facility] 10-28-2023 15:34-0400 Body mass index (BMI) [Ratio] 30.66 kg/m2 Jonathan Clara DO Work Phone: [facility] 10-28-2023 15:34-0400 Body weight 71.22 kg Jonathan Clara DO Work Phone: [facility] 10-28-2023 15:34-0400 Diastolic blood pressure 78 mm[Hg] Jonathan Clara DO Work Phone: [facility] 10-28-2023 15:34-0400 Systolic blood pressure 118 mm[Hg] Jonathan Clara DO Work Phone: [facility] 08-13-2023 13:46-0400 Body height 152.4 cm Carla Chowdary MD Work Phone: [facility] 08-13-2023 13:46-0400 Body mass index (BMI) [Ratio] 30.96 kg/m2 Carla Chowdary MD Work Phone: [facility] 08-13-2023 13:46-0400 Body temperature 97.59 [degF] Carla Chowdary MD Work Phone: [facility] 08-13-2023 13:46-0400 Body weight 71.9 kg Carla Chowdary MD Work Phone: [facility] 08-13-2023 13:46-0400 Diastolic blood pressure 69 mm[Hg] Carla Chowdary MD Work Phone: [facility] 08-13-2023 13:46-0400 Heart rate 73 /min Carla Chowdary MD Work Phone: [facility] 08-13-2023 13:46-0400 Respiratory rate 20 /min Carla Chowdary MD Work Phone: [facility] 08-13-2023 13:46-0400 SaO2% (BldA) [Mass fraction] 100 % Carla Chowdary MD Work Phone: [facility] 08-13-2023 13:46-0400 Systolic blood pressure 117 mm[Hg] Carla Chowdary MD Work Phone: [facility] 06-14-2023 11:44-0400 Body height 152.4 cm [facility] 06-14-2023 11:44-0400 Body mass index (BMI) [Ratio] 30.2 kg/m2 [facility] 06-14-2023 11:44-0400 Body temperature 98.9 [degF] [facility] 06-14-2023 11:44-0400 Body weight 70.36 kg [facility] 06-14-2023 11:44-0400 Diastolic blood pressure 82 mm[Hg] [facility] 06-14-2023 11:44-0400 Heart rate 96 /min [facility] 06-14-2023 11:44-0400 Respiratory rate 18 /min [facility] 06-14-2023 11:44-0400 SaO2% (BldA) [Mass fraction] 99 % [facility] 06-14-2023 11:44-0400 Systolic blood pressure 126 mm[Hg] [facility] 04-29-2023 12:50-0400 Body height 152.4 cm Thao Pagan MD Work Phone: [facility] 04-29-2023 12:50-0400 Body weight 71.8 kg Thao Pagan MD Work Phone: [facility] 04-29-2023 12:50-0400 Diastolic blood pressure 70 mm[Hg] Thao Pagan MD Work Phone: [facility] 04-29-2023 12:50-0400 Heart rate 70 /min Thao Pagan MD Work Phone: [facility] 04-29-2023 12:50-0400 Systolic blood pressure 104 mm[Hg] Thao Pagan MD Work Phone: [facility] 04-22-2023 05:15-0500 Body height 154.5 cm Sleep Main Work Phone: [facility] 04-22-2023 05:15-0500 Body weight 68.4 kg Sleep Main Work Phone: [facility] 02-01-2023 15:23-0500 Body height 154.5 cm Carla Chowdary MD Work Phone: [facility] 02-01-2023 15:23-0500 Body weight 68.45 kg Carla Chowdary MD Work Phone: [facility] 02-01-2023 15:23-0500 Diastolic blood pressure 70 mm[Hg] Carla Chowdary MD Work Phone: [facility] 02-01-2023 15:23-0500 Heart rate 67 /min Carla Chowdary MD Work Phone: [facility] 02-01-2023 15:23-0500 SaO2% (BldA) [Mass fraction] 100 % Carla Chowdary MD Work Phone: [facility] 02-01-2023 15:23-0500 Systolic blood pressure 117 mm[Hg] Carla Chowdary MD Work Phone: [facility] Encounters Encounter Date Encounter Type Care Provider Facility Start: 11-27-2024 End: 11-27-2024 Clinisync Result Encounter Jonathan Clara DO Work Phone: [facility] Unsolicited Start: 11-27-2024 End: 11-27-2024 Clinisync Result Encounter Jonathan Clara DO Work Phone: [facility] External [facility] Unsolicited Start: 11-05-2024 End: 11-05-2024 Patient encounter procedure Gabi Porras DO -Lab [facility] Work Phone: Start: 11-05-2024 End: 11-05-2024 ambulatory Nory TRIPATHI Work Phone: [facility] Work Phone: Start: 11-05-2024 End: 11-05-2024 External Result Encounter Jonathan Clara DO Work Phone: [facility] External [facility] Unsolicited Start: 11-05-2024 End: 11-05-2024 External Result Encounter Jonathan Clara DO Work Phone: [facility] Unsolicited Start: 10-13-2024 End: 10-13-2024 Bamboo flowsheet Jennifer CALLAWAY Work Phone: [facility] [place] Start: 10-13-2024 End: 10-13-2024 Bamboo flowsheet Jennifer CALLAWAY Work Phone: [facility] [place] Start: 10-13-2024 End: 10-13-2024 Office outpatient visit 15 minutes Jennifer CALLAWAY Work Phone: [facility] Comment on above: Menorrhagia with irr egular cycle; Insulin resistance; Herpes genitalis in women Start: 10-13-2024 End: 10-13-2024 ambulatory JENNIFER RENDON Not Available Start: 10-08-2024 End: 10-08-2024 Telephone encounter Jennifer CALLAWAY Work Phone: [facility] Start: 10-06-2024 End: 10-06-2024 Bamboo flowsheet Jennifer Highland PA Work Phone: [facility] [place] [facility] Start: 10-06-2024 End: 10-09-2024 Bamboo flowsheet Jennifer Justice PA Work Phone: [facility] Start: 10-06-2024 End: 10-09-2024 Clinisync Result Encounter Jennifer CALLAWAY Work Phone: [facility] External Department Unsolicited Start: 10-06-2024 End: 10-07-2024 External Result Encounter Jennifer Justice PA Work Phone: [facility] External Department Unsolicited Start: 10-06-2024 End: 10-06-2024 ambulatory JENNIFER RENDON Not Available Start: 10-06-2024 End: 10-06-2024 Office outpatient visit 15 minutes Jennifer CALLAWAY Work Phone: [facility] [place] [facility] Comment on above: Vaginal discharge; STD exposure; Vaginal lesion Start: 09-16-2024 End: 09-16-2024 Bamboo flowsheet Andreas Samson [employer] Work Phone: [facility] [place] [facility] Start: 09-16-2024 End: 09-18-2024 Bamboo flowsheet Andreas Samson [employer] Work Phone: [facility] Start: 09-16-2024 End: 09-17-2024 Clinisync Result Encounter Andreas Samson NP Work Phone: [facility] External Department Unsolicited Start: 09-16-2024 End: 09-18-2024 External Result Encounter Andreas Samson [employer] Work Phone: [facility] External Department Unsolicited Start: 09-16-2024 End: 09-16-2024 ambulatory ANDREAS CHAPIN Not Available Start: 09-16-2024 End: 09-16-2024 Office outpatient visit 15 minutes Andreas Samson [employer] Work Phone: [facility] [place] Comment on above: STD exposure; Sexually transmitted disease exposure; BV (bacterial vaginosis) Start: 09-07-2024 End: 09-07-2024 ambulatory Kathryn Escobedo APRN-[employer]UMP BLOWER Facility:[facility] Start: 08-27-2024 End: 08-27-2024 ambulatory Nory Aguilar [employer]-C Work Phone: [facility] Work Phone: Start: 08-27-2024 End: 08-27-2024 Patient encounter procedure Gabi Porras -[facility] Work Phone: Start: 08-26-2024 End: 08-26-2024 Bamboo flowsheet Jonathan Clara DO Work Phone: [facility] Start: 08-26-2024 End: 08-27-2024 Bamboo flowsheet Jonathan Clara DO Work Phone: [facility] Start: 08-26-2024 End: 08-27-2024 External Result Encounter Andreas Samson [employer] Work Phone: [facility] External Department Unsolicited Start: 08-26-2024 End: 08-26-2024 ambulatory JONATHAN CLARA Not Available Start: 08-26-2024 End: 08-26-2024 Office outpatient visit 15 minutes Jonathan Clara DO Work Phone: [facility] Comment on above: BV (bacterial vagino sis) (Primary Dx); Menorrhagia with irregular cycle Start: 08-17-2024 End: 08-18-2024 Misty Brito PA-C Work Phone: Neurology Comment on above: Refill Request Start: 06-18-2024 End: 06-18-2024 Office outpatient new 45 minutes Gabi Ren DO Work Phone: [facility] Comment on above: 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) Start: 06-18-2024 End: 06-18-2024 ambulatory GABI MCCLURE Not Available Start: 06-18-2024 End: 06-18-2024 Bamboo flowsheet Gabi Mcclure DO Work Phone: [facility] [place] Start: 06-18-2024 End: 06-18-2024 Bamboo flowsheet Gabi Mcclure DO Work Phone: [facility] Start: 05-21-2024 End: 05-22-2024 Refill Hosea Ku PA-C Work Phone: Neurology Comment on above: Refill Request Start: 05-18-2024 End: 05-18-2024 Patient encounter procedure PHYSICIAN NO [facility] Work Phone: Start: 05-18-2024 End: 05-18-2024 ambulatory PHYSICIAN NO [facility] Work Phone: Start: 04-20-2024 End: 04-20-2024 External Result Encounter Nory Aguilar NP Work Phone: [facility] Unsolicited Start: 04-20-2024 End: 04-20-2024 External Result Encounter Nory Aguilar NP Work Phone: [facility] External Department Unsolicited Start: 04-20-2024 End: 04-20-2024 Patient encounter procedure PHYSICIAN NO [facility] Work Phone: Start: 04-20-2024 End: 04-20-2024 ambulatory PHYSICIAN NO [facility] Work Phone: Start: 04-20-2024 Encounter for genera l adult medical examination without abnormal findings Nory Aguilar [facility] Start: 04-15-2024 End: 04-15-2024 ambulatory DAISY DE LEON Facility:[facility] Start: 04-13-2024 End: 04-13-2024 ambulatory NORY AGUILAR Not Available Start: 04-13-2024 End: 04-13-2024 Patient encounter status Nory Aguilar [employer] Work Phone: [facility] Start: 04-13-2024 End: 04-13-2024 Periodic preventive med est patient 18-39 yrs Nory Aguilar [employer] Work Phone: [facility] Comment on above: Wellness examination (Primary Dx); Juvenile myoclonic epilepsy, not intractable, with status epilepticus (CMS/HCC); Tachycardia; Screening for deficiency anemia; Screening for cardiovascular condition; Screening for thyroid disorder; Screening for lipid disorders; PCOS (polycystic ovarian syndrome); Recurrent major depression in partial remission (HCC) (CMS/HCC); Anxiety and depression (CMS/HCC) Start: 04-13-2024 End: 04-13-2024 Bamboo flowsheet Nory Aguilar [employer] Work Phone: [facility] Start: 04-13-2024 End: 04-13-2024 Bamboo flowsheet Nory Aguilar [employer] Work Phone: [facility] Start: 03-16-2024 End: 03-16-2024 Emergency department patient visit PHYSICIAN NO [facility] Work Phone: Start: 03-04-2024 End: 03-05-2024 ambulatory Daisy Rahmanan DO Work Phone: Neurology Comment on above: Another seizure Start: 03-04-2024 End: 03-04-2024 Emergency department patient visit PHYSICIAN NO [facility] Work Phone: Start: 03-03-2024 [...] Dx) Start: 01-09-2024 End: 01-09-2024 ambulatory DAISY MCDONALDMARILUZYARIEL Facility:[facility] Start: 01-09-2024 End: 01-10-2024 Telephone encounter Daisy De Leon DO Work Phone: Neurology Comment on above: Orders Start: 12-23-2023 End: 12-23-2023 ambulatory Daisy De Leon DO Work Phone: Neurology Comment on above: Another seizure Start: 12-22-2023 End: 12-22-2023 Emergency department patient visit PHYSICIAN NO [facility] Work Phone: Start: 12-19-2023 [...] Start: 12-11-2023 End: 12-11-2023 ambulatory PHYSICIAN NO [facility] Work Phone: Start: 12-11-2023 End: 12-11-2023 Patient encounter procedure PHYSICIAN NO [facility] [address] Work Phone: [...] 11-13-2023 End: 11-13-2023 ambulatory DAISY DE LEON Facility:[facility] Start: 10-28-2023 End: 10-28-2023 Patient encounter procedure Jonathan Clara DO Work Phone: [facility] Start: 10-28-2023 [...] Start: 08-13-2023 End: 08-14-2023 ambulatory CARLA CHOWDARY Facility:[facility] Start: 08-13-2023 End: 08-13-2023 Patient encounter procedure Carla Chowdary MD Work Phone: Neurology Comment on above: Juvenile myoclonic e pilepsy, not intractable, with status epilepticus (HCC) Start: 06-14-2023 End: 06-14-2023 Departed Referred SPECIAL PROJECTS MANAGER Maira Gibson Work Phone: [facility] [place] Work Phone: Start: 06-14-2023 End: 06-14-2023 ambulatory [facility] Work Phone: Start: 06-14-2023 End: 06-14-2023 Patient encounter procedure [facility] [place] Work Phone: Start: 04-29-2023 End: 04-29-2023 ambulatory THAO PAGAN Facility[facility] Start: 04-29-2023 End: 04-29-2023 Patient encounter procedure [...] Start: 04-21-2023 End: 04-21-2023 ambulatory CARLA CHOWDARY Facility:[facility] Start: 04-15-2023 Chart abstracting Sleep [facility] Main [...] Only Carla Chowdary MD Work Phone: [facility]AN[facility]ONAQAM[facility]ETER Comment on above: Juvenile myoclonic e [...] Date Procedure Procedure Detail Performing Clinician Start: 11-27-2024 US OB TRANSVAGINAL Core y Clara DO Work Phone: Start: 11-05-2024 Gonadotropin chorion ic quantitative Jonathan Clara DO Work Phone: Start: 10-06-2024 RECURRENT VAGINITIS (HTRX) Jennifer CALLAWAY Work Phone: Start: 10-06-2024 [facility] HERPES SIMPLEX V IRUS 1/2 DNA PCR Jennifer CALLAWAY Work Phone: Start: 09-16-2024 HIV AB/P24 AG WITH REFLEX Andreas Samson [employer] Work Phone: Start: 09-16-2024 RECURRENT VAGINITIS (HTRX) Andreas Samson [employer] Work Phone: Start: 08-26-2024 RECURRENT VAGINITIS (HTRX) Andreas Samson [employer] Work Phone: Start: 04-20-2024 Complete blood count with white cell differential, automated Nory Aguilar [employer] Work Phone: Start: 03-16-2024 Viral nucleic acid assay PHYSICIAN NO FAMILY Start: 03-04-2024 CT of head without contrast PHYSICIAN NO FAMILY Start: 10-28-2023 URETHRITIS/DISCHARGE PLUS VAGINITIS (HTRX) Jonathan Elizabeth DO Work Phone: Start: 10-28-2023 IGP,APTIMA HPV,AGE GDLN Jonathan Elizabeth DO Work Phone: Start: 06-04-2021 Adult depression scr eening assessment Carla Chowdary MD Work Phone: Start: 09-27-2020 Adult depression scr eening assessment Carla Chowdary MD Work Phone: Plan of Treatment Date Care Activity Detail Author Start: 05-26-2025 Urine microalbumin profile DTaP,Tdap,Td Vaccine (7 - Td or Tdap) [facility] Start: 11-27-2024 End: 11-27-2024 ambulatory 11/27/2024 9:00 AM EDT Initial [facility] [place] [address] [place] [address] [place] [address] [facility] [place] Start: 11-27-2024 End: 11-27-2024 Professional / ancillary services management 11/27/2024 8:30 AM EDT Ancillary Procedure [facility] [address] [place] [address] [place] [id number] [facility] Start: 11-03-2024 End: 11-03-2024 Patient encounter procedure [facility] Start: 10-19-2024 Influenza vaccination [facility] Start: 10-13-2024 End: 10-13-2024 Patient encounter procedure [facility] [place] [facility] Comment on above: Arrived Start: 10-06-2024 [...] Office Visit [facility] [place] [address] [facility] [place] [phone] Gabi Mcclure, DO [address] [facility] [place] [address] AND[place] Start: 06-18-2024 End: 06-18-2024 Patient encounter procedure 06/18/2024 3:30 PM EDT Office Visit [place] [place] [address] [place] [phone] Gabi Mcclure, DO [address] [facility] [place] [address] Arrived ANDRE FRANKEVUE Comment on above: Arrived Start: 05-25-2024 End: 05-25-2024 Patient encounter procedure 05/25/2024 11:30 AM EDT Office Visit ANDRE [place] [address] [place], [place] [address] [address] Ren Bluedilma [address] [place], [place] [address] [address] [facility] [place] Start: 05-20-2024 End: 05-20-2024 Patient encounter procedure 05/20/2024 2:15 PM EDT Office Visit ANDRE [place] [address] [place], [place] [address] [address] Gabi Mcclure DO [address] [facility] [place] [address] AND[facility] [place] Start: 04-15-2024 End: 04-15-2024 Patient encounter procedure 04/15/2024 10:30 AM EST Office Visit Neurology [address] [place] [address] Juvenile myoclonic epilepsy, not intractable, 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.B01] Neurology Comment on above: Juvenile myoclonic e pilepsy, not intractable, 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.B01] Start: 04-13-2024 End: 04-13-2025 CBC panel - Blood by Automated count CBC Lab Routine Wellness examination Screening for deficiency anemia Expected: 04/13/2024 (Approximate), Expires: 04/13/2025 [facility] Comment on above: Expected: 04/13/2024 (Approximate), Expires: 04/13/2025 Start: 04-13-2024 End: 04-13-2025 Comprehensive metabolic 2000 panel - Serum or Plasma Comprehensive metabolic panel Lab Routine Wellness examination Screening for cardiovascular condition Expected: 04/13/2024 (Approximate), Expires: 04/13/2025 [facility] Comment on above: Expected: 04/13/2024 (Approximate), Expires: 04/13/2025 Start: 04-13-2024 End: 04-13-2025 ECG 12 lead ECG 12 lead ECG Routine Juvenile myoclonic epilepsy, not intractable, with status epilepticus (CMS/HCC) Tachycardia Expected: 04/13/2024 (Approximate), Expires: 04/13/2025 [facility] Work Phone: Comment on above: Expected: 04/13/2024 (Approximate), Expires: 04/13/2025 Start: 04-13-2024 End: 04-13-2025 Lipid 1996 panel - Serum or Plasma Lipid panel Lab Routine Wellness examination Screening for lipid disorders Expected: 04/13/2024 (Approximate), Expires: 04/13/2025 [facility] Comment on above: Expected: 04/13/2024 (Approximate), Expires: 04/13/2025 Start: 04-13-2024 End: 04-13-2025 Thyrotropin [Units/volume] in Serum or Plasma TSH Lab Routine Wellness examination Screening for thyroid disorder Expected: 04/13/2024 (Approximate), Expires: 04/13/2025 [facility] Comment on above: Expected: 04/13/2024 (Approximate), Expires: 04/13/2025 Start: 04-13-2024 End: 04-13-2025 Thyroxine (T4) free [Mass/volume] in Serum or Plasma T4, free Lab Routine Wellness examination Screening for thyroid disorder Expected: 04/13/2024 (Approximate), Expires: 04/13/2025 [facility] Comment on above: Expected: 04/13/2024 (Approximate), Expires: 04/13/2025 Start: 02-06-2024 End: 05-07-2024 Zonisamide [Mass/volume] in Serum or Plasma ZONISAMIDE Lab Routine Juvenile myoclonic epilepsy, not intractable, with status epilepticus (HCC) Expected: 02/06/2024, Expires: 05/07/2024 [facility] Work Phone: Comment on above: Expected: 02/06/2024 , Expires: 05/07/2024 Start: 01-09-2024 End: 01-09-2024 Patient encounter procedure 01/09/2024 2:40 PM EST Office Visit Neurology [address] [place] [address] Daisy De Leon DO [address] [place] [address] f/u Neurology Comment on above: f/u Start: 01-09-2024 End: 04-09-2024 CBC panel - Blood by Automated count COMPLETE BLOOD COUNT Lab Routine Juvenile myoclonic epilepsy, not intractable, with status epilepticus (HCC) Expected: 01/09/2024, Expires: 04/09/2024 [facility] Work Phone: Comment on above: Expected: 01/09/2024 , Expires: 04/09/2024 Start: 01-09-2024 End: 04-09-2024 Comprehensive metabolic 2000 panel - Serum or Plasma COMPREHENSIVE METABOLIC PANEL Lab Routine Juvenile myoclonic epilepsy, not intractable, with status epilepticus (HCC) Expected: 01/09/2024, Expires: 04/09/2024 [facility] Comment on above: Expected: 01/09/2024 , Expires: 04/09/2024 Start: 01-09-2024 End: 04-09-2024 lamoTRIgine [Mass/volume] in Serum or Plasma LAMOTRIGINE Lab Routine Juvenile myoclonic epilepsy, not intractable, with status epilepticus (HCC) Expected: 01/09/2024, Expires: 04/09/2024 [facility] Comment on above: Expected: 01/09/2024 , Expires: 04/09/2024 Start: 12-16-2023 End: 12-16-2023 Patient encounter procedure 12/16/2023 9:30 AM EDT Office Visit [facility] [address] [place] [address] Jennifer Rendon PA [address] [place] [address] Arrived [facility] Comment on above: Arrived Start: 11-13-2023 End: 11-13-2023 Patient encounter procedure 11/13/2023 3:20 PM EDT Office Visit Neurology [address] [id number] Daisy De Leon DO [address] [place] [address] transition of care Neurology Comment on above: transition of care Start: 10-23-2023 Screening for malign ant neoplasm of cervix Cervical Cancer Screening [facility] Start: 10-20-2023 Covid-19 Vaccine ( season) Covid-19 Vaccine () [facility] Start: 10-20-2023 Influenza vaccination Influenza Vacc ine (#1) [facility] Start: 06-14-2023 Bacteria identified in Urine by Culture [facility] Start: 02-01-2023 End: 05-03-2023 25-hydroxyvitamin D3 [Mass/volume] in Serum or Plasma [facility] Work Phone: Comment on above: Expected: 02/01/2023 , Expires: 05/03/2023 Start: 02-01-2023 End: 05-03-2023 LACOSAMIDE [facility] Work Phone: Comment on above: Expected: 02/01/2023 , Expires: 05/03/2023 Start: 10-19-2022 Covid-19 Vaccine ( season) Covid-19 Vaccine ( season) [facility] Start: 10-19-2022 Covid-19 Vaccine ( season) Covid-19 Vaccine ( season) [facility] Start: 10-19-2022 Influenza vaccination Influenza Vacc ine (#1) [facility] Start: 06-04-2022 Adult depression screening assessment DEPRESSION SCREENING [facility] Start: 2021 Urine microalbumin profile [facility] Start: 10-19-2021 Influenza vaccination C [facility] Start: 09-27-2021 Adult depression screening assessment DEPRESSION SCREENING [facility] Start: 05-25-2021 COVID-19 VACCINE (2 - Pfizer 3-dose series) COVID-19 VACCINE (2 - Pfizer 3-dose series) [facility] Start: 05-25-2021 COVID-19 VACCINE (2 - Pfizer series) COVID-19 VACCINE (2 - Pfizer series) [facility] Start: 2020 Anxiety Screening Anxiety Screening [facility] Start: 2020 CHLAMYDIA SCREENING (18-24) CHLAMYDIA SCREENING (18-24) [facility] Start: 2020 GC (GONORRHEA) SCREENING (18-24) GC (GONORRHEA) SCREENING (18-24) [facility] Start: 2020 HEPATITIS C SCREENING HEPATITIS C [facility] Start: 2020 Hepatitis C screening Hepatitis C [facility] Start: 2020 HIV SCREENING HIV SCREENING [facility] Start: 2020 HIV screening HIV Screening [facility] Start: 2020 Screening for Chlamy van trachomatis Chlamydia Screening () [facility] Start: 2018 Meningococcal B Vacc ine (1 of 2 - Standard) Meningococcal B Vaccine (1 of 2 - Standard) [facility] Start: 2018 Meningococcal B Vaccine: Consider Based On Risk (1 of 2 - Patient Seeks Protection) Meningococcal B Vaccine: Consider Based On Risk (1 of 2 - Patient Seeks Protection) [facility] Start: 2018 MENINGOCOCCAL CONJUG ATE (1 - 2-dose series) MENINGOCOCCAL CONJUGATE (1 - 2-dose series) [facility] Start: 2017 HPV Vaccine (1 - 3-d ose series) HPV Vaccine (1 - 3-dose series) [facility] Start: 2016 PEDS TO ADULT TRANSITION ANNUAL ASSESSMENT PEDS TO ADULT TRANSITION ANNUAL ASSESSMENT [facility] Start: 2014 PEDS TO ADULT TRANSITION INITIAL DISCUSSION PEDS TO ADULT TRANSITION INITIAL DISCUSSION [facility] Start: 2013 HPV VACCINE (1 - 2-d ose series) HPV VACCINE (1 - 2-dose series) [facility] Start: 2012 MENINGOCOCCAL B: Consider based on risk (1 of 2 - Risk Bexsero 2-dose series) MENINGOCOCCAL B: Consider based on risk (1 of 2 - Risk Bexsero 2-dose series) [facility] Start: 10-23-2011 HPV Vaccine (1 - 2-d ose series) HPV Vaccine (1 - 2-dose series) [facility] Start: 2009 Urine microalbumin profile DTAP,TDAP,TD (1 - Tdap) [facility] Start: 10-23-2007 COVID-19 VACCINE (1) COVID-19 VACCIN E (1) [facility] Start: 2002 HEPATITIS B (1 of 3 - 3-dose series) HEPATITIS B (1 of 3 - 3-dose series) [facility] Start: 2002 Hepatitis B Vaccine (1 of 3 - 3-dose series) Hepatitis B Vaccine (1 of 3 - 3-dose series) [facility] CHLAMYDIA TRACHOMATI S (GENITO/STI) CHLAMYDIA TRACHOMATIS (GENITO/STI) Lab Routine Screen for STD (sexually transmitted disease) Ordered: 10/28/2023 [facility] Comment on above: Ordered: 10/28/2023 CHLAMYDIA TRACHOMATI S (GENITO/STI) CHLAMYDIA TRACHOMATIS (GENITO/STI) Lab Routine STD exposure Ordered: 09/16/2024 [facility] Comment on above: Ordered: 09/16/2024 CHLAMYDIA TRACHOMATI S (GENITO/STI) CHLAMYDIA TRACHOMATIS (GENITO/STI) Lab Routine STD exposure Ordered: 10/06/2024 [facility] Comment on above: Ordered: 10/06/2024 Comprehensive metabo lic 2000 panel - Serum or Plasma Comprehensive metabolic panel Lab Routine 04/20/2024 12:05 PM EST [facility] [employer] Work Phone: Cytology Cervical or vaginal smear or scraping study Pap Smear Pathology and Cytology Routine Well woman exam with routine gynecological exam Ordered: 10/28/2023 [facility] [employer] Work Phone: Comment on above: Ordered: 10/28/2023 End: 01-08-2025 EPIL EEG LONG EPIL EEG LONG NEUROLOGY Routine Juvenile myoclonic epilepsy, not intractable, with status epilepticus (HCC) 1 Occurrences starting 01/09/2024 until 01/08/2025 [facility] Work Phone: Comment on above: 1 Occurrences starti ng 01/09/2024 until 01/08/2025 Hepatitis B virus surface Ag [Presence] in Serum or Plasma by Immunoassay Hepatitis B surface antigen Lab Routine Sexually transmitted disease exposure Ordered: 09/16/2024 [facility] Comment on above: Ordered: 09/16/2024 HIV-1/HIV-2 antigen/antibody combination immunoassay HIV-1 and HIV-2 antibodies Lab Routine Sexually transmitted disease exposure Ordered: 09/16/2024 [facility] Work Phone: Comment on above: Ordered: 09/16/2024 HSV nonspecific, IgG HSV nonspec ific, IgG Lab Routine STD exposure Sexually transmitted disease exposure Ordered: 09/16/2024 [facility] Comment on above: Ordered: 09/16/2024 HSV nonspecific, IgM HSV nonspec ific, IgM Lab Routine STD exposure Sexually transmitted disease exposure Ordered: 09/16/2024 [facility] Comment on above: Ordered: 09/16/2024 Lamotrigine measurement [facility] Lipid 1996 panel - Serum or Plasma Lipid panel Lab Routine 04/20/2024 12:05 PM EST [facility] Measurement of zonisamide [facility] Neisseria gonorrhoea e DNA [Presence] in Unspecified specimen by LINK with probe detection Neisseria gonorrhea DNA probe, direct Lab Routine Screen for STD (sexually transmitted disease) Ordered: 10/28/2023 [facility] Comment on above: Ordered: 10/28/2023 Neisseria gonorrhoea e DNA [Presence] in Unspecified specimen by LINK with probe detection Neisseria gonorrhea DNA probe, direct Lab Routine STD exposure Ordered: 09/16/2024 [facility] Comment on above: Ordered: 09/16/2024 Neisseria gonorrhoea e DNA [Presence] in Unspecified specimen by LINK with probe detection Neisseria gonorrhea DNA probe, direct Lab Routine STD exposure Ordered: 10/06/2024 [facility] Comment on above: Ordered: 10/06/2024 Patient Education [facility] Work Phone: Patient referral [facility] Work Phone: End: 03-02-2024 PSG WITH EEG (DOUBLE STUDY) PSG WITH EEG (DOUBLE STUDY) Procedures Routine Juvenile myoclonic epilepsy, not intractable, with status epilepticus (HCC) MECCA (obstructive sleep apnea) 1 Occurrences starting 02/01/2023 until 03/02/2024 [facility] Work Phone: Comment on above: 1 Occurrences starti ng 02/01/2023 until 03/02/2024 SURESWAB(R) ADVANCED VAGINITIS PLUS, TMA SURESWAB(R) ADVANCED VAGINITIS PLUS, TMA Pathology and Cytology Routine Screen for STD (sexually transmitted disease) Ordered: 10/28/2023 [facility] Comment on above: Ordered: 10/28/2023 SURESWAB(R) ADVANCED VAGINITIS PLUS, TMA SURESWAB(R) ADVANCED VAGINITIS PLUS, TMA Pathology and Cytology Routine STD exposure Ordered: 09/16/2024 [facility] Work Phone: Comment on above: Ordered: 09/16/2024 SURESWAB(R) ADVANCED VAGINITIS PLUS, TMA SURESWAB(R) ADVANCED VAGINITIS PLUS, TMA Pathology and Cytology Routine Vaginal discharge Ordered: 10/06/2024 [facility] Work Phone: Comment on above: Ordered: 10/06/2024 [facility] Immunizations Immunization Date Immunization Notes Care Provider [facility] 12-11-2023 influenza virus vacc ine, unspecified formulation Yanet Brito PA-C Work Phone: [facility] 12-10-2022 influenza, injectabl e, quadrivalent, preservative free Nory Aguilar NP Work Phone: [facility] 12-10-2022 influenza virus vacc ine, unspecified formulation Carla Chowdary MD Work Phone: [facility] 07-20-2022 hepatitis B vaccine, adult dosage Nory Aguilar NP Work Phone: [facility] 06-19-2022 hepatitis B vaccine, pediatric or pediatric/adolescent dosage Nory Aguilar NP Work Phone: [facility] 09-30-2020 meningococcal oligosaccharide (groups A, C, Y and W-135) diphtheria toxoid conjugate vaccine (MCV4O) Nory Aguilar NP Work Phone: [facility] 06-14-2015 meningococcal ACWY vaccine, unspecified formulation Nory Aguilar NP Work Phone: [facility] 05-27-2015 tetanus toxoid, redu saroj diphtheria toxoid, and acellular pertussis vaccine, adsorbed Nory Aguilar NP Work Phone: [facility] 06-10-2007 diphtheria, tetanus toxoids and acellular pertussis vaccine Nory Brandon [employer] Work Phone: [facility] 06-10-2007 measles, mumps and r ubella virus vaccine Nory Brandon [employer] Work Phone: [facility] 06-10-2007 poliovirus vaccine, inactivated Nory Aguilar [employer] Work Phone: [facility] 01-24-2004 diphtheria, tetanus toxoids and acellular pertussis vaccine Nory Brandon [employer] Work Phone: [facility] 11-18-2003 haemophilus influenz ae type b vaccine, PRP-T conjugate Nory Aguilar [employer] Work Phone: [facility] 11-18-2003 measles, mumps and r ubella virus vaccine Nory Brandon [employer] Work Phone: [facility] 11-18-2003 pneumococcal conjuga te vaccine, 7 valent Nory Aguilar [employer] Work Phone: [facility] 06-11-2003 diphtheria, tetanus toxoids and acellular pertussis vaccine, unspecified formulation Nory Aguilar [employer] Work Phone: [facility] 06-11-2003 haemophilus influenz ae type b conjugate and Hepatitis B vaccine Nory Brandon [employer] Work Phone: [facility] 06-11-2003 poliovirus vaccine, inactivated Nory Aguilar [employer] Work Phone: [facility] 03-19-2003 diphtheria, tetanus toxoids and acellular pertussis vaccine, unspecified formulation Nory Brandon [employer] Work Phone: [facility] 03-19-2003 haemophilus influenz ae type b vaccine, conjugate unspecified formulation Nory Aguilar [employer] Work Phone: [facility] 03-19-2003 poliovirus vaccine, inactivated Nory Aguilar [employer] Work Phone: [facility] 2002 DTaP-hepatitis B and poliovirus vaccine Nory Aguilar [employer] Work Phone: [facility] 2002 haemophilus influenz ae type b vaccine, PRP-T conjugate Nory Aguilar [employer] Work Phone: [facility] 2002 pneumococcal conjuga te vaccine, 7 valent Nory Aguilar [employer] Work Phone: [facility] 2002 hepatitis B vaccine, pediatric or pediatric/adolescent dosage Nory Aguilar NP Work Phone: [facility] Healthcare Payers Date Payer Category Payer Self-pay 2021 [facility] [id number] 2021 Unknown [id number] 2020 Private Health Insurance EARILNE Jean [facility] [id number] 2020-Present [phone] [address] [place] [address] O [id number] 2019 Unknown [id number] 2019 Private Health Insurance [id number] 2019 Unknown [id number] 1.13.159.2 .[id number] 2019 Private Health Insurance [id number] 2002 Unknown [id number] 2.16.840.1.706816.3.579.2 .1259 2002 Unknown [id number] 2.16.840.1.589709.3.579.2 .1259 2002 Unknown [id number] 2.16.840.1.609103.3.579.2 .196 2002 Unknown [id number] 2.16.840.1.754919.3.579.2 .196 2002 Unknown [id number] 2.16.840.1.131225.3.579.2 .1259 2002 Unknown [id number] 2.16.840.1.466336.3.579.2 .1259 2002 Unknown [id number] 2.16.840.1.044332.3.579.2 .1259 2002 Unknown [id number] 2.16.840.1.749695.3.579.2 .1259 2002 Unknown [id number] 2.16.840.1.909717.3.579.2 .1259 2002 Unknown [id number] 2.16.840.1.768313.3.579.2 .1259 2002 Unknown [id number] 2.16840.1.450085.3.579.2 .1259 Unknown [id number] 2.16.840.1.500460.3.579.2 .531 Unknown [id number] 2.16.840.1.468849.3.579.2 .531 Unknown [id number] 2.16.840.1.218908.3.579.2 .531 Unknown [id number] 2.16840.1.481456.3.579.2 .531 Unknown [id number] 2.16840.1.053804.3.579.2 .531 Unknown [id number] 2.16840.1.826631.3.579.2 .531 Unknown [id number] 2.16840.1.758591.3.579.2 .531 Social History Date Type Detail Facility Tobacco smoking status MNIS Tobacco smoking consumption unknown [facility] Start: 2000 Sex Assigned At Female [facility] Start: 06-06-2021 End: 01-25-2023 Tobacco smoking status MNIS Never smoked tobacco [facility] Start: 06-06-2021 End: 01-25-2023 Tobacco use and exposure Smokeless tobacco non-user [facility] Start: 05-27-2021 End: 06-06-2021 Exposure to SARS-CoV-2 (event) Not sure [facility] Start: 06-06-2021 End: 04-13-2024 History of Social function [facility] Start: 06-06-2021 End: 04-13-2024 Tobacco use panel [facility] Adult Depression Screening Assessment 0 [facility] Start: 03-10-2021 Gender identity Identifies as female gender (finding) [facility] Start: 03-10-2021 Sexual orientation Heterosexual (fin ding) [facility] Start: 10-28-2023 End: 06-18-2024 Alcoholic beverage intake Current drinker of alcohol (finding) [facility] Start: 01-25-2023 Alcohol Comment caffeine intak e: 2 sodas daily [facility] Start: 2002 Sex assigned at Not on file [facility] Start: 03-04-2024 End: 05-19-2024 Sex Female (finding) [facility] How often to you hav e a drink containing alcohol? 2-4 times a month [facility] How many standard drinks containing alcohol do you have on a typical day? 3 or 4 [facility] How often do you hav e 6 or more drinks on 1 occasion? Monthly [facility] NEGATED: Highlighted rowStart: NELDAF History of tobacco use Passive smoker [facility] NEGATED: Highlighted row [facility] Clinical Notes 05-30-2021 to 10-13-2024 CESIA Esquivel [...] folic acid (Folvite) 1 MG tablet HYDROcodone-acetaminophen ([place]) 5-325 MG tablet 1 tablet, Oral, Every [...] by CESIA Esquivel on behalf of: CESIA Esquviel documented in this encounter [facility] 10-08-2024 Instructions CESIA Esquivel - 10/08/2024 2:09 PM EDT Patient called for pain medication due to current outbreak documented in this encounter [facility] 10-06-2024 History of Presen t illness Narrative [...] CESIA Esquivel documented in this encounter [facility] 09-16-2024 History of Presen t illness Narrative [...] nursing note reviewed. Exam conducted with a sand system operator present. 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 Exam conducted with a sand system operator present. Vitals: Estimated body mass index is [...] Jonathan Elizabeth DO documented in this encounterSaint [facility] [id number] Telephone encounter Note* Telephone Encounter - Sammi Escalante APRN.CNP - 08/18/2024 1:17 PM EDT The following approved medication requests have been transmitted electronically. Requested Prescriptions Signed Prescriptions Disp Refills zonisamide (ZONEGRAN) 100 mg capsule 270 capsule 0 Sig: TAKE 3 CAPSULES BY MOUTH AT BEDTIME Authorizing Provider: SAMMI ESCALANTE APRN.CNP [facility]07-01-2025 Miscellaneous Notes* Telephone Encounter - Sammi Escalante APRN.CNP - 08/18/2024 1:17 PM EDT The following approved medication requests have been transmitted electronically. Requested Prescriptions Signed Prescriptions Disp Refills zonisamide (ZONEGRAN) 100 mg capsule 270 capsule 0 Sig: TAKE 3 CAPSULES BY MOUTH AT BEDTIME Authorizing Provider: SAMMI ESCALANTE APRN.CNP * Telephone Encounter - Coco Deanna Bassett - 08/18/2024 1:04 PM EDT Prescription Refill: Requested by: pharmacy Please E-Scribe Caller Contact Number: electronic [facility]acy Name: [facility] Number: [phone] Generic/ brand: Generic 30 or 90 day supply requested: 90 Last appointment: 01/09/24 Next Appointment: none Patient of Dr. Abraham Bird [id number] [address] [facility] [address] [facility] Telephone encounter Note * Telephone Encounter - Coco Deanna Bassett - 08/18/2024 1:04 PM EDT Prescription Refill: Requested by: pharmacy Please E-Scribe Caller Contact Number: electronic [facility]acy [facility]: [facility] Number: [phone] Generic/ brand: Generic 30 or 90 day supply requested: 90 Last appointment: 01/09/24 Next Appointment: none Patient of Dr. Abraham Bird [id number] [address] [facility] [address] [facility]05-01-2025 History of Present illness Narrative* Gabi Mcclure [...] unaware of this event. 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 LUE Strength deltoid , biceps , triceps , wrist extensors , wrist flexor , rn medication strength 5/5. RLE Strength illopsoas, quadriceps, tibialis [...] reflex 2+ . Aguilar's sign negative. Coordination: Vwsott-xn-otiy testing and rapid alternating movements are normal Gait: Normal Review and summary of old records: CT of the brain on 09/10/2020: No acute intracranial process Review of epilepsy notes from [facility] in December of 2023 note the [...] myoclonic epilepsy. The patient has been seen [facility]. She was initially placed on Vimpat. Patient [...] as previously noted to the patient from [facility] SEIZURE PRECUATIONS to follow for 6 months [...] mental health issues documented in this encounterSaint [facility] [id number] Telephone encounter Note* Telephone Encounter - Yaent Brito PA-C - 05/22/2024 12:28 PM EDT The following approved medication requests have been transmitted electronically. Requested Prescriptions Signed Prescriptions Disp Refills zonisamide (ZONEGRAN) 100 mg capsule 270 capsule 0 Sig: Take 3 capsules by mouth daily at bedtime. Authorizing Provider: YANET BRITO PA-C [facility]04-04-2025 Miscellaneous Notes* Telephone Encounter - Yanet Brito [...] by: patient Please E-Scribe Caller Contact Number: [facility] Number: [phone] Generic/ brand: Generic 30 or 90 day supply requested: 90 Last appointment: 01/09/24 Next Appointment: none Patient of Dr. Abraham Bird [id number] [address] [facility] [address] documented in this encounterKind[facility]04-04-2025 Telephone encounter Note * Telephone Encounter - Deanna Garcia - 05/22/2024 11:08 AM EDT Prescription Refill: Requested by: patient Please E-Scribe Caller Contact Number: [employer] Pharmacy Name: [facility] Number: [phone] Generic/ brand: Generic 30 or 90 day supply requested: 90 Last appointment: 01/09/24 Next Appointment: none Patient of Dr. Abraham Huizar Rodo Bird [id number] [address] [facility] [address] [facility]02-24-2025 History of Present illness Narrative* Nory Aguilar, [employer] - 04/13/2024 4:00 PM EST Images from [...] is getting another opinion for neurology at [facility] and has an appointment in May. [...] Insecurity: No Food Insecurity (01/19/2023) [facility] Within the past 12 months [...] printed for patient, plans to do at [facility]. Discussed routine screenings and patient is [...] given to patient to get done at [facility]. Screening for deficiency anemia - CBC; [...] 04/13/2025) for wellness. documented in this encounterSaint [facility] [id number] Telephone encounter Note* Telephone Encounter - Sammi [...] 150 mg twice daily. Sammi Escalante APRN.CNP [facility]01-16-2025 Miscellaneous Notes* Telephone Encounter - Sammi Escalante [...] review. Asuncion Garcia RN documented in this encounterKind[facility]01-16-2025 Telephone encounter Note * Telephone Encounter - [...] yes Routed for review. Asuncion Garcia RN [facility]01-15-2025 [facility] [place] [address] [place] [address] CT Scan Report Signed Patient: Quentin Bird MR#: [id number] 46 : 2000 Acct:[id number] Age/Sex: 23 / F ADM Date: 5 Loc: ER Room: Type: [facility] ER Attending Dr: Copies to: [...] Tomas Graham M.D.03/04/2024 10:41 AM Dictation Location: [facility]-- Transcribed By: [facility] 03/04/24 1041 Dictated By: Tomas Graham MD 03/04/24 1039 Signed By: 03/04/24 1041 [facility] Work Phone: [phone] Telephone encounter Note* Telephone Encounter - Sammi [...] with 25 mg tablet. Sammi Escalante APRN.CNP [facility]01-15-2025 Miscellaneous Notes* Telephone Encounter - Sammi Escalante [...] Take with 25 mg tablet. Sammi Escalante APRN.STUMP BLOWER * Telephone Encounter - Asuncion Garcia RN - 03/04/2024 8:56 AM EST Pt is requesting refill for LTG 125/125. MC message routed for review. Asuncion Garcia RN documented in this encounterKindred [facility]01-15-2025 Telephone encounter Note * Telephone Encounter - Asuncion Garcia RN - 03/04/2024 8:56 AM EST Pt is requesting refill for LTG 125/125. MC message routed for review. Asuncion Garcia RN [facility]12-26-2024 Telephone encounter Note* Telephone Encounter - Joon Melton RN - 02/13/2024 3:55 PM EST I spoke with the pharmacist at [facility], titration schedule reviewed. Joon Melton RN [facility]12-26-2024 Miscellaneous Notes* Telephone Encounter - Joon Vargas RN - 02/13/2024 3:55 PM EST I spoke with the pharmacist at [facility], titration schedule reviewed. Joon Melton, BRAYDEN * Telephone Encounter - Deanna Garcia - 02/13/2024 2:18 PM EST Medication Concern Person Calling Umesh Moon Name of medication Vimpat Concern with medication Pharmacy needs clarification on SIG. Patient of Dr. De Leon documented in this encounterKind[facility]12-26-2024 Telephone encounter Note * Telephone Encounter - Deanna Garcia - 02/13/2024 2:18 PM EST Medication Concern Person Calling Umesh Moon Name of medication Vimpat Concern with medication Pharmacy needs clarification on SIG. Patient of Dr. De Leon [facility]12-24-2024 Telephone encounter Note* Telephone Encounter - Mishel Carias RN - 02/11/2024 4:23 PM EST Spoke with [facility] They have the RX and sending to the pharmacist to review since a controled medication and made it ahigh priority Mishel Carias RN [facility]12-24-2024 Miscellaneous Notes* Telephone Encounter - Mishel Carias RN - 02/11/2024 4:23 PM EST Spoke with [facility] They have the RX and sending to the pharmacist to review since a controled medication and made it ahigh priority Mishel Carias RN documented in this encounterKindred [facility]12-23-2024 Telephone encounter Note * Telephone Encounter - [...] STOP LCM Authorizing Provider: ROSELYN MCCULLOUGH APRN.CNP [facility]12-23-2024 Miscellaneous Notes* Telephone Encounter - Roselyn Mccullough [...] EST Medication Concern Person Calling: Fax from [facility] Phone #: [phone] / Name of medication: Lacosamide/Vimpat - 50MG Concern with medication: Clarification request for dosage instructions Directions are missing on the original prescription dated 02/07/[address] De Leon Forwarded to nurse. documented in this encounterKindred Hospital [facility]12-23-2024 Telephone encounter Note * Telephone Encounter - Asuncion Garcia RN - 02/10/2024 10:25 AM EST Images from the original note were not included. Prescription for LCM 50mg tablet. [facility]'s response: Routed for new prescription. Asuncion Garcia RN [facility]12-23-2024 Telephone encounter Note* Telephone Encounter - Nahomy Frye - 02/10/2024 9:45 AM EST Medication Concern Person Calling: Fax from [facility] Phone #: [phone] / Name of medication: Lacosamide/Vimpat - 50MG Concern with medication: Clarification request for dosage instructions Directions are missing on the original prescription dated 02/07/[address] De Leon Forwarded to nurse. [facility]12-20-2024 Telephone encounter Note* Telephone Encounter - Hosea Ku PA-C - 02/07/2024 4:35 PM EST The following approved medication requests have been transmitted electronically. Requested Prescriptions Signed Prescriptions Disp Refills lacosamide (VIMPAT) 50 mg tab 168 tablet 0 Sig: Please follow wean schedule provided via [facility] [employer] [facility] Authorizing Provider: HOSEA KU PA-C [facility]12-20-2024 Miscellaneous Notes* Telephone Encounter - Hosea Ku PA-C - 02/07/2024 4:35 PM EST The following approved medication requests have been transmitted electronically. Requested Prescriptions Signed Prescriptions Disp Refills lacosamide (VIMPAT) 50 mg tab 168 tablet 0 Sig: Please follow wean schedule provided via [employer] Authorizing Provider: HOSEA KU PA-C * Telephone Encounter - Hosea Ku PA-C - 02/07/2024 11:56 AM EST RX corrected The following approved medication requests have been transmitted electronically. Requested Prescriptions Signed Prescriptions Disp Refills lacosamide (VIMPAT) 50 mg tab 168 tablet 0 Sig: Please follow wean schedule provided via [employer] Authorizing Provider: HOSEA KU PA-C * Telephone [...] received: From (agency / facility / parent): [facility] personal companion (if given): Phone #: [phone] Fax # : [phone] Email: Information requested: Physicians statement Patient of Dr. De Leon Forwarded to Nurse documented in this encounterKindred [facility]12-20-2024 Telephone encounter Note * Telephone Encounter - Asuncion Garcia RN - 02/07/2024 4:30 PM EST Lab order form signed by Hosea Ku via [employer]. Lab order form sent to [facility] [employer] (fax #: [phone]) via [employer]. Confirmation received. Asuncion Garcia RN [facility]12-20-2024 Miscellaneous Notes* Telephone Encounter - Asuncion Garcia RN - 02/07/2024 4:30 PM EST Lab order form signed by Hosea Ku via [employer]. Lab order form sent to [facility] [employer] (fax #: [phone]) via [employer]. Confirmation received. Asuncion Garcia RN * Telephone Encounter - Asuncion Garcia RN - 02/07/2024 11:51 AM EST Lab order form sent to Hosea Ku to review and sign via [employer]. Asuncion Garcia RN * Telephone Encounter - [...] review. Asuncion Garcia RN documented in this encounterKindred [facility]12-20-2024 Telephone encounter Note * Telephone Encounter - [...] prescription at the pharmacy Hosea Ku PA-C [facility]12-20-2024 Miscellaneous Notes* Telephone Encounter - Hosea Ku [...] patient Please Call in Caller Contact Number: [phone] (home) [facility] Number: [phone] Generic/ brand: generic 30 or 90 day supply requested: 90 Last appointment: Next Appointment: none Patient of Dr. abraham Bird [id number] [address] [facility] [address] New pharmacy above documented in this encounterKindred Hospital [facility]ima12-20-2024 Telephone encounter Note * Telephone Encounter - Sigrid Casarez - 02/07/2024 3:15 PM EST Prescription Refill: Requested by: patient Please Call in Caller Contact Number: [phone] (home) [facility] Pharmacy Number: [id number] Generic/ brand: generic 30 or 90 day supply requested: 90 Last appointment: Next Appointment: none Patient of Dr. abraham Bird [id number] [address] [facility] [address] New pharmacy above [facility]12-20-2024 Telephone encounter Note* Telephone Encounter - Hosea Ku PA-C - 02/07/2024 11:56 AM EST RX corrected The following approved medication requests have been transmitted electronically. Requested Prescriptions Signed Prescriptions Disp Refills lacosamide (VIMPAT) 50 mg tab 168 tablet 0 Sig: Please follow wean schedule provided via [facility] Authorizing Provider: HOSEA KU PA-C [facility]12-[facility] Telephone encounter Note* Telephone Encounter - Asuncion Garcia RN - 02/07/2024 11:51 AM EST Lab order form sent to Hosea Ku to review and sign via School[employer]. Asuncion Garcia RN [facility]12-[facility] Telephone encounter Note* Telephone Encounter - Asuncion Garcia RN - 02/07/2024 11:43 AM EST Prescription for LCM 50mg tablets is unclear. Pharmacy asking to verify instructions and provide the duration (day supply) that 168 tablets are expected to last the pt. Routed. Asuncion Garcia RN [facility]12-20-2024 Telephone encounter Note* Telephone Encounter - Ermelinda Dangelo - 02/07/2024 10:31 AM EST Form received: From (agency / facility / parent): [facility] personal companion (if given): Phone #: [phone] Fax # : [phone] Email: Information requested: Physicians statement Patient of Dr. De Leon Forwarded to Nurse [facility]12-19-2024 Telephone encounter Note* Telephone Encounter - Hosea Ku PA-C - 02/06/2024 8:28 AM EST Order for ZNS level placed Hosea Ku PA-C' [facility]12-19-[facility] Telephone encounter Note* Telephone Encounter - [...] Lacosamide provided in MyChart Hosea Ku PA-C [facility]12-18-2024 Telephone encounter Note* Telephone Encounter - Hosea Ku PA-C - 02/05/2024 1:57 PM EST MC message sent to patient. Waiting to confirm pharmacy before I send RX Hosea Ku PA-C [facility]12-18-2024 Telephone encounter Note* Telephone Encounter - Asuncion Garcia RN - 02/05/2024 10:58 AM EST Response from Hosea Kings: Can you please verify what dose of LTG she is currently taking? Asuncion Garcia RN [facility]12-17-2024 Telephone encounter Note* Telephone Encounter - [...] needed MC message routed for review. Asuncion Beitler, RN [facility]12-13-2024 Telephone encounter Note* Telephone Encounter - Dewayne [...] ifmyoclonus occurs. Authorizing Provider: DEWAYNE OSORIO PA-C [facility]12-13-2024 Miscellaneous Notes* Telephone Encounter - Dewayne Osorio PA-C - [...] Caller Contact Number: my chart Pharmacy Name: [facility] Pharmacy Number: [id number] Generic/ brand: generic 30 or 90 day supply requested: 90 Last appointment: 01/09/24 Next Appointment: none Patient of Dr. De Leon documented in this encounterKindred Hospital Lima12-13-2024 Telephone encounter Note * Telephone Encounter - Aislinn Lee - 01/31/2024 2:17 PM EST Prescription Refill: Requested by: patient Please E-Scribe Caller Contact Number: my chart [facility]: [facility] Pharmacy Number: [id number] Generic/ brand: generic 30 or 90 day supply requested: 90 Last appointment: 01/09/24 Next Appointment: none Patient of Dr. De Leon [facility]11-22-2024 Miscellaneous Notes* Telephone Encounter - Asuncion Garcia RN - 01/10/2024 2:24 PM EST Pt will be going to [facility] (fax #: [phone]). Lab order form sent to [facility] (fax #: [phone]) via datango. Confirmation received. Asuncion Garcia RN * Telephone Encounter - Asuncion Garcia RN - 01/10/2024 11:28 AM EST Lab order form signed by Mario Corona via [employer]. [employer] message sent to pt, in this encounter, to confirm laboratory. Asuncion Garcia RN * Telephone Encounter - Asuncion Garcia RN - 01/09/2024 4:32 PM EST Lab order form sent to Mario Corona to review and sign via School[employer]. Asuncion Garcia RN * Telephone Encounter - Mario Corona PA-C - 01/09/2024 4:29 PM EST Lab orders placed. Mario Corona PA-C * Telephone Encounter - Asuncion Garcia RN - 01/09/2024 4:20 PM EST Images from the original note were not included. Daisy De Leon, DO Asuncion Garcia RN Can we please send an order for trough lamotrigine level, CBC, CMP to [facility]? To be drawn after lamotrigine titration complete. Routed for lab orders. Asuncion aGrcia RN documented in this encounterKindred Hospital Lima11-22-2024 Telephone encounter Note * Telephone Encounter - Asuncion Garcia RN - 01/10/2024 2:24 PM EST Pt will be going to [facility] (fax #: [phone]). Lab order form sent to [facility] (fax #: [phone]) via datango. Confirmation received. Asuncion Garcia RN [facility]11-22-2024 Telephone encounter Note* Telephone Encounter - Asuncion Garcia RN - 01/10/2024 11:28 AM EST Lab order form signed by Mario Corona via School[employer]. MC message sent to pt, in this encounter, to confirm laboratory. Asuncion Garcia RN [facility]11-21-2024 Telephone encounter Note* Telephone Encounter - Asuncion Garcia RN - 01/09/2024 4:32 PM EST Lab order form sent to Mario Corona to review and sign via School[employer]. Asuncion Garcia RN [facility]11-21-2024 Telephone encounter Note* Telephone Encounter - Mario Corona PA-C - 01/09/2024 4:29 PM EST Lab orders placed. Mario Corona PA-C [facility]11-21-2024 Telephone encounter Note* Telephone Encounter - Asuncion Garcia RN - 01/09/2024 4:20 PM EST Images from the original note were not included. Daisy De Leon DO Beitler, Nina, RN Can we please send an order for trough lamotrigine level, CBC, CMP to [facility]? To be drawn after lamotrigine titration complete. Routed for lab orders. Asuncion Garcia RN [facility]11-21-2024 Instructions* Patient Instructions* Daisy De Leon DO [...] meet with your doctor. documented in this encounterKindred Hospital Lima11-21-2024 NoteHNO ID: [id number] Author: DAISY DE LEON DO Service: ? Author Type: Physician Type: Progress Notes Filed: 01/09/2024 15:45 Note Text: [facility] Patient Name: Quentin Bird Date of : 2000 ESTABLISHED EPILEPSY CLINIC NOTE 01/09/2024 2:40 PM Reason for Visit: Established Patient and Follow Up Clinical Summary: Ms. Bird is a 23 year old [facility]. Classification Summary HISTORY OF PRESENT [...] have seizure. 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 Currently holding [...] Interval: Hx of generalized (more content not included)...[facility] 01-09-2024 History of Present illness Narrative* Daisy De Leon DO - 01/09/2024 2:35 PM EST [facility] Patient Name: Quentin Bird Date of : 2000 ESTABLISHED EPILEPSY CLINIC NOTE 01/09/2024 2:40 PM Reason for Visit: Established Patient and Follow Up Clinical Summary: Ms. Bird is a 23 year old female [facility]. 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 SOCIAL HISTORY: -Lives in [place], [place] -Patient lives alone? -Vocation: -Education: Some [...] No driving until 6 months seizure free. 11/21/24: Had breakthrough seizure. Was only on 25 [...] which included: preparing to see the patient [id number] patient care completing clinical documentation obtaining and/or reviewing separately obtained history performing a medically appropriate examination counseling and educating the patient/family/caregiver ordering medications, tests, or procedures Daisy De Leon DO cc: Primary Care Physician: No primary care provider on file. No primary provider on file. Referring: Patient: Ms. Quentin [address] [facility] [address] documented in this encounterKindred Hospital [facility]11-04-2024 Telephone encounter Note * Telephone Encounter - [...] yes Routed for review. Asuncion Garcia RN [facility]11-04-2024 Miscellaneous Notes* Telephone Encounter - Asuncion Garcia [...] review. Asuncion Garcia RN documented in this encounterKindred Hospital [facility]ima10-31-2024 Telephone encounter Note * Telephone Encounter - Asuncion Garcia RN - 12/19/2023 11:16 AM EDT Images from the original note were not included. Pharmacy called and made aware. Asuncion Garcia RN [facility]10-31-2024 Miscellaneous Notes* Telephone Encounter - Asuncion Garcia RN - 12/19/2023 11:16 AM EDT Images from the original note were not included. Pharmacy called and made aware. Asuncion Garcia RN * Telephone Encounter - Asuncion Garcia RN - 12/19/2023 11:02 AM EDT PA done via CMM. (Hunter: [id number]) [facility] Rx #: [id number] Status: sent to plan. Asuncion Garcia RN * Telephone Encounter - Joellen Breaux - 12/19/2023 8:00 AM EDT Prior Authorization Needed: Received by: Fax Requested by (pharmacy name): [facility] Phone number: [phone] Name of medication: Nayzilam Strength and dosage: 5mgSig: Use 1 spray in one nostril as needed for seizures lasting longer than 2 minutes. Insurance company name and phone #: CMM HUNTER: [id number] Patient ID: PCN #: BIN#: Group #: Patient of Dr. De Leon Forwarded to nurse. documented in this encounterKindred Hospital Lima10-31-2024 Telephone encounter Note * Telephone Encounter - Asuncion Garcia RN - 12/19/2023 11:02 AM EDT PA done via CMM. (Hunter: [id number]) CESIA Rx #: [id number] Status: sent to plan. Asuncion Garcia RN [facility]-31-2024 Telephone encounter Note* Telephone Encounter - Meera [...] ifmyoclonus occurs. Authorizing Provider: MEERA SILVA PA-C [facility]10-31-2024 Miscellaneous Notes* Telephone Encounter - Meera Silva [...] patient Please Call in Caller Contact Number: [phone] (home) Pharmacy Name: [facility] Pharmacy Number: [phone] Generic/ brand: generic 30 or 90 day supply requested: 30 day supply Last appointment: 11/13/23 Next Appointment: NONE Patient of Dr. De Leon [facility] documented in this encounterKindred Hospital [facility]ima10-31-2024 Telephone encounter Note * Telephone Encounter - Sigrid Casarez - 12/19/2023 10:47 AM EDT Prescription Refill: PATIENT OUT OF MEDICATION Requested by: patient Please Call in Caller Contact Number: [phone] (home) Pharmacy Name: [facility] Pharmacy Number: [id number] Generic/ brand: generic 30 or 90 day supply requested: 30 day supply Last appointment: 11/13/23 Next Appointment: NONE Patient of Dr. De Leon [facility] Telephone encounter Note* Telephone Encounter - Joellen Breaux - 12/19/2023 8:00 AM EDT Prior Authorization Needed: Received by: Fax Requested by (pharmacy name): [facility] Phone number: [phone] Name of medication: Nayzilam Strength and dosage: 5mgSig: Use 1 spray in one nostril as needed for seizures lasting longer than 2 minutes. Insurance company name and phone #: CMM HUNTER: [id number] Patient ID: PCN #: BIN#: Group #: Patient of Dr. De Leon Forwarded to nurse. [facility]10-30-2024 Telephone encounter Note* Telephone Encounter - Meera Silva PA-C - 12/18/2023 10:06 AM EDT [facility] website checked and validated. All prescriptions have [...] and tolerability. Authorizing Provider: MEERA SILVA PA-C [facility]10-30-2024 Miscellaneous Notes* Telephone Encounter - Meera Silva [...] Please E-Scribe Caller Contact Number: Pharmacy Name: [facility] Pharmacy Number: [phone] Generic/ brand: 30 or 90 day supply requested: 90 Last appointment: 11-13-2023 Next Appointment: NONE Patient of Dr. De Leon documented in this encounterKindred Hospital Lima10-30-2024 Telephone encounter Note * Telephone Encounter - Jeniffer Austin - 12/18/2023 10:01 AM EDT Prescription Refill: Requested by: patient Please E-Scribe Caller Contact Number: Pharmacy Name: [facility] Pharmacy Number: [phone] Generic/ brand: 30 or 90 day supply requested: 90 Last appointment: 11-13-2023 Next Appointment: NONE Patient of Dr. De Leon [facility]10-28[facility] History of Present illness Narrative* CESIA Esquivel [...] calculated from the following: Height as of 24: 5'. Weight as of this encounter: 163 [...] of: CESIA Esquivel documented in this encounterSaint Louis University Health Science [id number] Telephone encounter Note* Telephone Encounter - Asuncion Garcia RN - 11/19/2023 1:07 PM EDT BMV form signed by Dr. De Leon via Schoolfy. Copies sent to [employer], pt e-mail and BMV special unit via Schoolfy. Asuncion Garcia RN [facility]10-01-2024 Miscellaneous Notes* Telephone Encounter - Asuncion Garcia RN - 11/19/2023 1:07 PM EDT BMV form signed by Dr. De Leon via [employer]. Copies sent to [employer], pt e-mail and BMV special unit via School[employer]. Asuncion Garcia RN * Telephone Encounter - Asuncion Garcia RN - 11/19/2023 12:49 PM EDT BMV form received. Onset- 4 years (2019) Last SZ- 09/08/2023 BMV form is for ID purposes only. BMV form sent to Dr. De Leon to review and sign via Schoolfy. Asuncion Garcia RN * Telephone Encounter - Joellen Breaux - 11/19/2023 9:08 AM EDT Form received: From (agency / facility): BMV personal companion (if given): Quentin Bird Phone #: [phone] (home) Fax # : [phone] Information requested: Request for physician statement Patient of Dr. De Leon Forwarded to nurse. documented in this encounterKindred Hospital [facility]ima10-01-2024 Telephone encounter Note * Telephone Encounter - Asuncion Garcia RN - 11/19/2023 12:49 PM EDT BMV form received. Onset- 4 years (2019) Last SZ- 09/08/2023 BMV form is for ID purposes only. BMV form sent to Dr. De Leon to review and sign via School[employer]. Asuncion Garcia RN [facility]10-01-2024 Telephone encounter Note* Telephone Encounter - Joellen Breaux - 11/19/2023 9:08 AM EDT Form received: From (agency / facility): [facility]V personal companion (if given): Quentin Bird Phone #: [phone] (home) Fax # : [phone] Information requested: Request for physician statement Patient of Dr. De Leon Forwarded to nurse. [facility] Telephone encounter Note* Telephone Encounter - Asuncion Garcia RN - 11/14/2023 8:42 AM EDT BMV form received, pt did not fill out top portion and sign. MC message sent to pt, in this encounter. Asuncion Garcia RN [facility]09-26-2024 Miscellaneous Notes* Telephone Encounter - Asuncion Garcia RN - 11/14/2023 8:42 AM EDT BMV form received, pt did not fill out top portion and sign. MC message sent to pt, in this encounter. Asuncion Garcia RN documented in this encounterKindred Hospital Lima09-25-2024 Instructions* Patient Instructions* Daisy De Leon, - 11/13/2023 4:32 PM EDT Lamotrigine titration [...] meet with your doctor. documented in this encounterKindred Hospital Lima09-25-2024 NoteHNO ID: [id number] Author: DAISY DE LEON DO Service: ? Author Type: Physician Type: Progress Notes Filed: 11/19/2023 09:49 Note Text: [facility] [place] [facility] Patient Name: Quentin BANEGAS Date of : 2000 INITIAL EPILEPSY CLINIC NOTE 11/13/2023 3:20 PM CHIEF COMPLAINT: New Patient (New NI Patient ) HISTORY OF PRESENT ILLNESS Ms. Bird is a 23 year old female [facility] in [facility] for initial consultation. [...] have seizure. 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 Currently holding [...] She is currently seeing a PCP at [facility]. Total # of Current Anti-seizure Medications: [...] Frequency: Last occ (more content not included)... [facility]09-25-2024 History of Present illness Narrative* Daisy De Leon, - 11/13/2023 3:43 PM EDT [facility] [place] [facility] Patient Name: Quentin BANEGAS Date of : 2000 INITIAL EPILEPSY CLINIC NOTE 11/13/2023 3:20 PM CHIEF COMPLAINT: New Patient (New NI Patient ) HISTORY OF PRESENT ILLNESS Ms. Bird is a 23 year old female [facility] in [facility] for initial consultation. [...] have seizure. 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 Currently holding [...] She is currently seeing a PCP at [facility]. Total # of Current Anti-seizure Medications: [...] - Seizure risk factors: Brain Tumor No COURTESY CLERK Infections No Developmental Delay No Family history [...] myoclonic epilepsy, not intractable, with status epilepticus ([facility]) 09/28/2020 Recurrent major depression in partial remission ([facility]) 09/28/2020 No past surgical history on file. No family history on file. SOCIAL HISTORY: -Lives in [place], [place] -Patient lives alone? -Vocation: Working three [...] to see the patient completing clinical documentation [id number] patient care obtaining and/or reviewing separately obtained history performing a medically appropriate examination counseling and educating the patient/family/caregiver ordering medications, tests, or procedures Daisy De Leon DO cc: Primary Care Physician: No primary care provider on file. No primary provider on file. Referring: Patient: Ms. Quentin Bird [address] [id number] documented in this encounterKindred Hospital [facility]ima09-09-2024 History of Present illness Narrative* Lotus Philip [...] nursing note reviewed. Exam conducted with a sand system operator present. Vitals: Estimated body mass index is [...] Jonathan Elizabeth DO documented in this encounterSaint Louis University Health Science [id number] Telephone encounter Note* Telephone Encounter - Sommer Carrillo RN - 09/16/2023 11:08 AM EDT Spoke with PA department, no PA is needed. Sommer Carrillo RN [facility]07-29-2024 Miscellaneous Notes* Telephone Encounter - Sommer Carrillo RN - 09/16/2023 11:08 AM EDT Spoke with PA department, no PA is needed. Sommer Carrillo RN * Telephone Encounter - Joellen Breaux - 09/16/2023 10:37 AM EDT Prior Authorization Needed: Received by: Fax Requested by (pharmacy name): [facility] Phone number: [phone] Name of medication: LCM Strength and dosage: 200mg Take 1 tablet by mouth two times a day. 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 Insurance company name and phone #: [employer] HUNTER: [id number] Patient ID: PCN #: BIN#: Group #: Patient of Dr. Simms Forwarded to nurse. documented in this encounterKindred Hospital [facility]ima07-29-2024 Telephone encounter Note * Telephone Encounter - Joellen Breaux - 09/16/2023 10:37 AM EDT Prior Authorization Needed: Received by: Fax Requested by (pharmacy name): [facility] Phone number: [phone] Name of medication: LCM Strength and dosage: 200mg Take 1 tablet by mouth two times a day. 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 Insurance company name and phone #: [employer] HUNTER: [id number] Patient ID: PCN #: BIN#: Group #: Patient of Dr. Simms Forwarded to nurse. [facility]07-23-2024 Telephone encounter Note* Telephone Encounter - Mishel James Rn, RN - 09/10/2023 11:31 AM EDT Spoke to Ms. Bird and advised per Dr. Simms. She verbalized understanding and agrees with plan. Please file pending orders (extra pill for myoclonus added to script). Thank you. Routed to Dr. Holland James RN [facility]07-23-2024 Miscellaneous Notes* Telephone Encounter - Mishel JamesRn)BRAYDEN - 09/10/2023 11:31 AM EDT Spoke to Ms. Bidr and advised per Dr. Simms. She verbalized [...] Chowdary MD * Telephone Encounter - Mishel James Rn, RN [...] Dr. Holland James RN documented in this encounterKindred Hospital [facility]ima07-22-2024 Telephone encounter Note * Telephone Encounter - Carla Rico MD - 09/09/2023 6:11 PM EDT We can increase the Vimpat to 200mg Po BID. Please discuss missing doses of medication with the patient. A pill box is important to keep track of the medications. Thanks Carla Chowdary MD [facility]07-22-2024 Telephone encounter Note* Telephone Encounter - Mishel [...] recommendation Routed to Dr. Holland James RN [facility]06-25-2024 Instructions* Patient Instructions* Carla Rico MD - [...] well. Carla Chowdary MD documented in this encounterKindred Hospital [facility]ima06-25-2024 NoteHNO ID: [id number] Author: CARLA RICO MD Service: ? Author Type: Physician Type: Progress Notes Filed: 08/13/2023 19:51 Note Text: [facility] Section of Pediatric Epilepsy/Neurology Epilepsy [facility], [facility] [place] Date of Service: 02/01/2023 RETURN VISIT NOTE HISTORY SINCE LAST VISIT: The patient has returned for follow-up regarding well controlled RAHEEL. Possible family history of RAHEEL GROCERY STORE BAGGERBri This is a 22 year old left [...] not yet followed u (more content not included)...[facility]06-25-2024 History of Present illness Narrative* Carla Rico MD - 08/13/2023 2:41 PM EDT [facility] Section of Pediatric Epilepsy/Neurology Ep[facility], [facility] [place] Date of Service: 02/01/2023 RETURN VISIT NOTE HISTORY SINCE LAST VISIT: The patient has returned for follow-up regarding well controlled RAHEEL. Possible family history of RAHEEL GROCERY STORE BAGGER, Bri Julian This is a 22 year [...] which included preparing to see the patient, [id number] patient care, completing clinical documentation, obtaining and/or reviewing separately obtained history, counseling and educating the patient/family/caregiver, ordering medications, ramu ts, or procedures, communicating with other HCPs (not separately reported), independently interpreting results (not separately reported), and communicating results to the patient/family/caregiver. Carla Chowdary M.D. Staff, Epilepsy Center/Neurology, [facility] [place] [facility], Mail code - [phone] [id number] CC: Records via digital FAX or [employer]EL[employer] To use this Smartlink, specify the provider ID whose address you want to display, e.g., .PROVADDR[1(where 1 is the provider ID). No referring provider defined for this encounter. Phone: N/A Fax: The family of Quentin Bird [address] [address] documented in this encounterKindred Hospital [facility]ima03-11-2024 Miscellaneous Notes* Telephone Encounter - Mishel JamesRn), RN - 04/29/2023 3:26 PM EDT Confirmed with pharmacy that refills available. Prescription refused. Mishel James RN documented in this encounterKindred Hospital [facility]ima03-11-2024 NoteHNO ID: [id number] Author: THAO PAGAN MD Service: ? Author Type: Physician Type: Progress Notes Filed: 04/29/2023 15:25 Note Text: [facility] New Patient Evaluation PATIENT NAME: Quentin L Marge DATE OF SERVICE: April 29, 2023 CONSULTING PROVIDER: Carla Chowdary [address] [facility] [address] REASON FOR CONSULT: Carla Chowdary sends the [...] negative study. 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 Medical [id number] Instructions* Patient Instructions* Demetria Funk MD - [...] for insomnia. The cost is $40. Use [email or web address] which to access the [facility] website to purchase the program ( go to Shop, and then Wellness Programs, and the find the Go! To Sleep product). -Please fill out 2 weeks of sleep logs [facility] documented in this encounterKindred Hospital Lima03-11-2024 History of Present illness Narrative* Thao Pagan MD - 04/29/2023 12:55 PM EDT Images from the original note were not included. [facility] New Patient Evaluation PATIENT NAME: Quentin Bird DATE OF SERVICE: April 29, 2023 CONSULTING PROVIDER: Carla Chowdary [address] [facility] [address] REASON FOR CONSULT: Carla Chowdary sends the [...] negative study. 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 high chance [...] for insomnia. The cost is $40. Use [email or web address].SmartMenuCard which to access the [facility] website to purchase the program ( [...] Karol Funk MD Sleep Medicine Fellow PGY-7 [facility] STAFF PHYSICIAN NOTE OF PERSONAL [...] with 2 weeks of sleep logs [facility] referral. Patient agreeable. Patient [...] Disorder Center Schedule appointment or sleep studies: [phone] or [phone] option 1 Office: [phone] ext. [phone] This clinical note has been [...] that may be inappropriate. documented in this encounterKindred Hospital Lima03-04-2024 NoteHNO ID: [id number] Author: ?, ?, ? Service: ? Author Type: ? Type: Progress Notes Filed: 04/22/2023 05:18 Note Text: Sleep Study Check-In Documentation Date: April 22, 2023 Name: Quentin Bird Patient was accompanied by Self. Location: Latex allergy: No Tape allergy: No Current medications were reviewed with the patient:Yes Sleep aid taken by patient for the sleep study: Carmen of sleep aid: Not Applicable Procedure was explained to the patient and all questions were answered. PAP treatment discussed and shown to patient: Yes Knowledge Program (KP): KP was not completed in [facility] by patient and accepted Study type: Double study-Polysomnogram with extra EEG/ RBD Adverse Event: No (If yes create a new abstract) Comments: Patient was advised to follow up with their ordering provider regarding test results Carrie Delgado [facility]03-04-2024 History of Present illness Narrative* Carrie Espinoza - 04/22/2023 5:16 AM EST Sleep Study Check-In Documentation Date: April 22, 2023 Name: Quentin Bird Patient was accompanied by Self. Location: Latex allergy: No Tape allergy: No Current medications were reviewed with the patient:Yes Sleep aid taken by patient for the sleep study: Carmen of sleep aid: Not Applicable Procedure was explained to the patient and all questions were answered. PAP treatment discussed and shown to patient: Yes Knowledge Program (KP): KP was not completed in [employer] by patient and accepted Study type: Double [...] provider CONSULT TO SLEEP MEDICINE - ADULT [[id number]] 02/01/23 Carla Rico MD Assoc. 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 PAST MEDICAL [...] Study) from Carla Holt MD, a B. [facility] Staff. Visit prep complete. Comments :No The sleep study is scheduled for 04/20. Insurance: Payor: ANTHEM / Plan: BLUE ACCESS PPO / Product Type: PPO / Payer/Plan Subscr Sex Relation Sub. Ins. ID Effective Group Num 1. ANTHEM - BLUE* VENKATA BIRD [birth year]1968 Male Child [id number] [birth year] [id number] [address] 2. AETNA - AETNA* YU RAWLS [birth year]1975 Male Child [id number] [birth year] [id number] [address] Tremayne Crespo documented in this encounterKindred Hospital Lima02-07-2024 Miscellaneous Notes* Telephone Encounter - Mishel James (Rn), RN - 03/27/2023 3:24 PM EST Date [...] Caller Contact Number: my chart Pharmacy Name: [facility] Pharmacy Number: [phone] Generic/ brand: generic 30 or 90 day supply requested: 90 Last appointment: 02/01/23 Next Appointment: 08/13/[address] Simms documented in this encounterKindred Hospital Lima12-19-2023 Miscellaneous Notes* Telephone Encounter - Mishel JamesRn), RN - 02/05/2023 11:26 AM EST Spoke to Ms. Bird and advised per Dr. Simms. She verbalized understanding and agrees with plan. Mishel James RN * Telephone Encounter - Mishel James)BRAYDEN - 02/05/2023 10:26 AM EST Called Ms. Rawls, did not receive answer. Message left, will await call-back. Mishel James RN * Telephone Encounter - Mishel James Rn, RN - 02/05/2023 8:31 AM EST ----- Message from Carla Chowdary MD sent at 02/05/2023 7:59 AM EST ----- Please let the patient know that the Vitamin D is low so I recommend she takes a daily vitamin D3 5000IU daily. She can find this over the counter. Thanks Carla Chowdary MD documented in this encounterKindred Hospital Lima12-15-2023 NoteHNO ID: [id number] Author: Carla Rico MD Service: ? Author Type: Physician Type: Progress Notes Filed: 02/01/2023 4:03 PM Note Text: order for double study PSG and EEG and sleep consultation [facility]-2023 NoteHNO ID: [id number] Author: Carla Rico MD Service: ? Author Type: Physician Type: Progress Notes Filed: 02/01/2023 4:38 PM Note Text: [facility] Section of Pediatric Epilepsy/Neurology Epilepsy Center, Neurological [place] Date of Service: 02/01/2023 RETURN VISIT NOTE [...] two times a day for 180 days. rx-cx-uyea-FA-Ca carb-vit K (WOMEN'S MULTIVITAMIN) 18 mg-400 mcg- [...] take bupropion for depression. Return visit: summer in 2023 Call if seizures or myoclonic jerks in the hands The possible risks, benefits, and alternatives to this plan were discussed, including a possibility of breakthrough seizures or worsening with changes in medications. The family is advised to call my office or seek urgent care if there is any worsening or new symptom of concern. (more content not included)...[facility]12-15-[facility] Instructions* Patient Instructions* Carla Rico MD - [...] hands Carla Chowdary MD documented in this encounterKindred Hospital Lima12-15-2023 History of Present illness Narrative* Carla Rico MD - 02/01/2023 3:58 PM EST order for double study PSG and EEG and sleep consultation Carla Chowdary MD documented in this encounterKindred Hospital Lima12-15-2023 History of Present illness Narrative* Carla Rico MD - 02/01/2023 3:42 PM EST [facility] Section of Pediatric Epilepsy/Neurology Epilepsy Center, [facility] [place] Date of Service: 02/01/2023 RETURN VISIT NOTE HISTORY SINCE LAST VISIT: The patient has returned for follow-up regarding well controlled RAHEEL. Possible family history of RAHEEL [employer], Bri Julian This is a 22 year [...] two times a day for 180 days. ui-lx-vgvw-FA-Ca carb-vit K (WOMEN'S MULTIVITAMIN) 18 mg-400 mcg- [...] which included preparing to see the patient, vaca-xp-yvqg patient care, completing clinical documentation, obtaining and/or reviewing separately obtained history, counseling and educating the patient/family/caregiver, ordering medications, ramu ts, or procedures, communicating with other HCPs (not separately reported), independently interpreting results (not separately reported), and communicating results to the patient/family/caregiver. Carla Chowdary M.D. Staff, Epilepsy Center/Neurology, [facility] [place] [facility], Mail code - [phone] [facility] [address] CC: Records via digital FAX or Epic To use this Smartlink, specify the provider ID whose address you want to display, e.g., .PROVADDR[1(where 1 is the provider ID). No referring provider defined for this encounter. Phone: N/A Fax: The family of Quentin [facility] [id number] documented in this encounterKindred Hospital Lima12-04-2023 Miscellaneous Notes* Telephone Encounter - Michell Gonzalez [...] Thank you. Routed to Dr. Lisa James, BRAYDEN * Telephone Encounter - Michell Gonzalez MD - 01/21/2023 2:21 PM EST May offer to increase lacosamide by 50 mg/d q1 week from 200 to 300 mg/d. Recommend to avoid alcohol and sleep deprivation. Michell Gonzalez MD * Telephone Encounter - Mishel JamesRn), RN - 01/21/2023 9:49 AM EST Neuro [...] Relationship to patient: Self Contact phone number: [phone] Date of seizure: 01/19/23 Duration: 2 minutes Back to Baseline (Yes/No): yes Emergency treatment needed (Yes/No): yes Patient of Dr. Simms documented in this encounterKindred Hospital Lima10-11-2023 Miscellaneous Notes* Telephone Encounter - Sara Davenport LPN - 11/28/2022 1:07 PM EDT Date of service: November 28, 2022 -Prescription appropriate, please file and document electronically. Thank you. -Routed to Dr. Holland Davenport LPN * Telephone Encounter - Jeniffer Austin - 11/28/2022 10:16 AM EDT Prescription Refill: Requested by: My chart Please E Scribe Caller Contact Number: [phone] (home) Pharmacy Name: [facility] Pharmacy Number: [phone] Generic/ brand: 30 or 90 day supply requested: 90 Last appointment: 06/06/2021 Next Appointment: none fwd to schedulers Patient of Dr. Simms documented in this encounterKindred Hospital Lima10-26-2022 Miscellaneous Notes* Telephone Encounter - Debra Call RN - 12/13/2021 3:44 PM EDT New pharmacy .-Prescription appropriate. Please file, document electronically, and CLOSE encounter. Thank you. -Routed to Dr. Holland Call RN * Telephone Encounter - Joellen Breaux - 12/13/2021 10:16 AM EDT Prescription Refill: NEW PHARMACY REQUEST; PLEASE RE-APPROVE Requested by: pharmacy Please E-Scribe Caller Contact Number: [facility]acy Name: [facility] Number: [phone] Generic/ brand: 30 or 90 day supply requested: 90 Last appointment: 06/06/21 Next Appointment: none Patient of Dr. Simms documented in this encounterKindred Hospital Lima09-09-2022 Miscellaneous Notes* Telephone Encounter - Cedrick Chapman MD - 10/27/2021 5:03 PM EDT Reviewed and refilled the medications noted below. Requested Prescriptions Pending Prescriptions Disp Refills ua-ui-elly-FA-Ca carb-vit K (WOMEN'S MULTIVITAMIN) 18 mg-400 mcg- 500 mg-50 mcg tab 365 tablet 0 Sig: Take 1 tablet by mouth once daily. folic acid 1 mg tablet 180 tablet 3 Sig: Take 2 tablets by mouth once daily. lacosamide (VIMPAT) 100 mg tab 180 tablet 3 Sig: Take 1 tablet by mouth twice daily. Taina Jauregui,Bhavya, M.D Pediatric Epileptologist Epilepsy Center, [facility] [address] [address] * Telephone Encounter - Mishel James RN - 10/27/2021 3:01 PM EDT Date of service: October 27, 2021 Quentin Bird is a 21 year old Last seen by Dr. Simms on 10/27/21 Now requesting medication refill Prescription appropriate, please file and document electronically. Thank you. Routed to Dr. Chapman (covering) Mishel James RN documented in this encounterKindred Hospital Lima04-21-2022 Miscellaneous Notes* Telephone Encounter - FELICIA Dickens - 06/08/2021 12:26 PM EDT Received approval for Nayzilam from [employer]. Approval Dates: 06/08/21-06/08/22. REF #: [id number] Approval uploaded to [facility]. * Telephone Encounter - Mishel James RN - 06/08/2021 10:36 AM EDT Images from the original note were not included. PA submitted via Covermeds. Mishel James RN * Telephone Encounter - FELICIA Dickens - 06/07/2021 4:14 PM EDT Prior Authorization Needed: Received by: Fax Requested by (pharmacy name): [facility] ([facility]) Phone number: Name of medication: Nayzilam Strength and dosage: 5mg Insurance company name and phone #: [facility] Patient ID: [id number] Patient of Dr. Simms documented in this encounterKindred Hospital Lima04-18-2022 Miscellaneous Notes* Telephone Encounter - Mishel James [...] Please E-Scribe Caller Contact Number: Pharmacy Name: [facility] Pharmacy Number: Generic/ brand: 30 or 90 day supply requested: 90 Last appointment: 12/01/20 Next Appointment: 06/06/[address] Simms documented in this encounterKindred Hospital Lima04-14-2022 Miscellaneous Notes* Telephone Encounter - Mishel James [...] Please E-Scribe Caller Contact Number: Pharmacy Name: [facility] Pharmacy Number: [phone] Generic/ brand: 30 or 90 day supply requested: 90 Last appointment: 12/01/2020 Next Appointment: 06/06/[address] Simms documented in this encounterKindred Hospital Lima04-13-2022 Miscellaneous Notes* Telephone Encounter - Mishel James RN - 05/31/2021 8:25 AM EDT Duplicate request. Mishel James RN documented in this encounterKindred Hospital Lima04-12-2022 Miscellaneous Notes* Telephone Encounter - Mishel James [...] Contact Number: Pharmacy Name: [facility] Number: [phone] Generic/ brand: 30 or 90 day supply requested: 90 Last appointment: 12/01/2020 Next Appointment: 06/06/[address] 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 [facility]* Diagnosis Juvenile myoclonic epilepsy, not intractable, 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 [facility]* Diagnosis Juvenile myoclonic epilepsy, not intractable, 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 [facility]* Diagnosis Juvenile myoclonic epilepsy, not intractable, 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 MECCA (obstructive sleep apnea) Obstructive sleep apnea (adult) (pediatric) [facility]* Diagnosis Juvenile myoclonic epilepsy, not intractable, 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 Vitamin D deficiency Unspecified vitamin D deficiency documented in this encounter [facility] [place] [facility]* Diagnosis Frequent nocturnal awakening- Primary Other sleep disturbances Juvenile myoclonic epilepsy, not intractable, 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 Persistent disorder of initiating or maintaining wakefulness Malaise and fatigue Other malaise and fatigue Insomnia, unspecified type Poor sleep hygiene Other specific disorder of sleep of nonorganic origin documented in this [facility]* Diagnosis Onset Date Resolution Status Dysuria noneactive [facility] Work Phone: evaluation note* Diagnosis Onset Date Resolution Status Acute UTI (urinary tract infection) acute Dysuria noneactive [facility] Work Phone: evaluation note* Diagnosis Juvenile myoclonic epilepsy, not intractable, 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 documented [facility] this encounter [facility] [place] [facility]* Diagnosis Juvenile myoclonic epilepsy, not intractable, 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 [facility]* Diagnosis Follow-up encounter involving medication documented [facility] noteNo assessment information availableC[facility] Work Phone: evaluation note* Diagnosis Juvenile myoclonic epilepsy, not intractable, 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 documented [facility] this encounter [facility] [place] [facility]* Diagnosis Juvenile myoclonic epilepsy, not intractable, 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 [facility]* Diagnosis Juvenile myoclonic epilepsy, not intractable, 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 documented in this encounter [facility] [place] [facility]* Diagnosis Well woman exam with routine gynecological exam Routine gynecological examination Insulin resistance Other abnormal glucose Screen for STD (sexually transmitted disease) Screening examination for venereal disease documented in this encounter [facility]* Diagnosis Juvenile myoclonic epilepsy, not intractable, 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 [facility]* Diagnosis Juvenile myoclonic epilepsy, not intractable, 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 [facility]* Diagnosis Juvenile myoclonic epilepsy, not intractable, 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 [facility]* Diagnosis Juvenile myoclonic epilepsy, not intractable, 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 [facility]* Diagnosis Wellness examination- Primary Juvenile [...] and depression (CMS/HCC) documented in [facility] encounter [facility]* Diagnosis Intractable juvenile myoclonic epilepsy without status epilepticus (CMS/HCC)- Primary documented in this encounter [facility]* Diagnosis BV (bacterial vaginosis)- Primary Unspecified vaginitis and vulvovaginitis Menorrhagia with irregular cycle documented in this encounter [facility]* Diagnosis Onset Date Resolution Status Admit Date RAHEEL (juvenile myoclonic epilepsy) acute August 27, 2024 12:29pm [facility] Work Phone: Evaluation note* Diagnosis STD exposure Sexually transmitted disease exposure Contact with or exposure to venereal diseases BV (bacterial vaginosis) Unspecified vaginitis and vulvovaginitis documented in this encounter [facility]* Diagnosis Vaginal discharge Leukorrhea, not specified as infective STD exposure Vaginal lesion Other specified noninflammatory disorder of vagina documented in this encounter [facility]* Diagnosis Herpes genitalis in women- Primary Unspecified genital herpes documented in this encounter [facility]* Diagnosis Menorrhagia with irregular cycle Insulin resistance Other abnormal glucose Herpes genitalis in women Unspecified genital herpes documented in this encounter [facility] HealthcareHospital Discharge instructions Additional Instructions Follow-up with your primary care doctor Return to ED follow-up worsening symptoms [facility] Work Phone: Reason for referral (narrative)* Outpatient Procedure (Routine) - Pending Review Specialty Diagnoses / Procedures Referred By Myra salcedo Referred To Contact [facility] Diagnoses Juvenile myoclonic epilepsy, not intractable, with status epilepticus (HCC) MECCA (obstructive sleep apnea) Procedures PSG WITH EEG (DOUBLE STUDY) POLYSOM 6/>YRS SLEEP W/CPAP 4/> ADDL NANCY ATTND EEG PHYS/QHP EA INCR>12HR<26HR AFTER 24HR W/VEEG Carla Rico MD [address] [place] [address] [place] [address] Referral ID Status Reason Start Date Expiration Date Visits Requested Visits Authorized [id number] Pending Review Auto-Generat ed Referral 3 03/02/2024 1 1 * Consult, Test, Treat (Routine) - Authorized Specialty Diagnoses / Procedures Referred By Myra salcedo Referred To Contact Diagnoses Juvenile myoclonic epilepsy, not intractable, with status epilepticus (HCC) Procedures CONSULT TO SLEEP MEDICINE - ADULT OFFICE/OUTPATIENT [facility]3] 60-74 MINUTES Carla Rico MD [address] [id number] Referral ID Status Reason Start Date Expiration Date Visits Requested Visits Authorized [id number] Authorized PCP Requested Referral 3 02/01/2024 1 1 [facility] for referral (narrative)* Outpatient Procedure (Routine) - Authorized Specialty Diagnoses / Procedures Referred By Myra salcedo Referred To Contact [facility] [place] Diagnoses Juvenile myoclonic epilepsy, not intractable, with status epilepticus (HCC) Procedures EPIL EEG LONG EEG EXTENDED MONITORING 61-119 MINUTES ELECTROENCEPHALOGRAM REC COMA/SLEEP ONLY Daisy De Leon DO [address] [place] [address] [address] Referral ID Status Reason Start Date Expiration Date Visits Requested Visits Authorized [id number] Authorized Auto-Generat ed Referral 4 01/08/2025 1 1 [facility] for referral (narrative)No reason for referral information availableFirelands Regional Med Center Work Phone: Summary Purpose Family History [...] difficulty keeping meds down February h2024 1:17pm Chief Complaint Admit Date Seizure March 04, 2024 9 :06am difficulty keeping meds down February h2024 1:17pm Z13.0 Z13.6 April 20, 2024 11:4 5am Chief Complaint Admit Date Seizure March 04, 2024 9 :06am difficulty keeping meds down March 16t h2024 1:17pm Z13.0 Z13.6 April 20, 2024 [...] or prosecute any alcohol or drug abuse patient.[facility]imaIn the event this information is protected by the Federal Confidentiality of Alcohol and Drug Abuse Patient Records regulations: The Federal rules restrict any use of the information to criminally investigate or prosecute any alcohol or drug abuse patient.[facility]imaIn the event this information is protected by the Federal Confidentiality of Alcohol and Drug Abuse Patient Records regulations: The Federal rules restrict any use of the information to criminally investigate or prosecute any alcohol or drug abuse patient.[facility]imaIn the event this information is protected by the Federal Confidentiality of Alcohol and Drug Abuse Patient Records regulations: The Federal rules restrict any use of the information to criminally investigate or prosecute any alcohol or drug abuse patient.[facility]imaIn the event this information is protected by the Federal Confidentiality of Alcohol and Drug Abuse Patient Records regulations: The Federal rules restrict any use of the information to criminally investigate or prosecute any alcohol or drug abuse patient.[facility] LimaIn the event this information is protected by the Federal Confidentiality of Alcohol and Drug Abuse Patient Records regulations: The Federal rules restrict any use of the information to criminally investigate or prosecute any alcohol or drug abuse patient.[facility]imaIn the event this information is protected by the Federal Confidentiality of Alcohol and Drug Abuse Patient Records regulations: The Federal rules restrict any use of the information to criminally investigate or prosecute any alcohol or drug abuse patient.[facility] LimaIn the event this information is protected by the Federal Confidentiality of Alcohol and Drug Abuse Patient Records regulations: The Federal rules restrict any use of the information to criminally investigate or prosecute any alcohol or drug abuse patient.[facility]imaIn the event this information is protected by the Federal Confidentiality of Alcohol and Drug Abuse Patient Records regulations: The Federal rules restrict any use of the information to criminally investigate or prosecute any alcohol or drug abuse patient.[facility]imaIn the event this information is protected by the Federal Confidentiality of Alcohol and Drug Abuse Patient Records regulations: The Federal rules restrict any use of the information to criminally investigate or prosecute any alcohol or drug abuse patient.[facility]imaIn the event this information is protected by the Federal Confidentiality of Alcohol and Drug Abuse Patient Records regulations: The Federal rules restrict any use of the information to criminally investigate or prosecute any alcohol or drug abuse patient.[facility]imaIn the event this information is protected by the Federal Confidentiality of Alcohol and Drug Abuse Patient Records regulations: The Federal rules restrict any use of the information to criminally investigate or prosecute any alcohol or drug abuse patient.[facility]imaIn the event this information is protected by the Federal Confidentiality of Alcohol and Drug Abuse Patient Records regulations: The Federal rules restrict any use of the information to criminally investigate or prosecute any alcohol or drug abuse patient.[facility]imaIn the event this information is protected by the Federal Confidentiality of Alcohol and Drug Abuse Patient Records regulations: The Federal rules restrict any use of the information to criminally investigate or prosecute any alcohol or drug abuse patient.[facility]imaIn the event this information is protected by the Federal Confidentiality of Alcohol and Drug Abuse Patient Records regulations: The Federal rules restrict any use of the information to criminally investigate or prosecute any alcohol or drug abuse patient.[facility]imaIn the event this information is protected by the Federal Confidentiality of Alcohol and Drug Abuse Patient Records regulations: The Federal rules restrict any use of the information to criminally investigate or prosecute any alcohol or drug abuse patient.[facility]imaIn the event this information is protected by the Federal Confidentiality of Alcohol and Drug Abuse Patient Records regulations: The Federal rules restrict any use of the information to criminally investigate or prosecute any alcohol or drug abuse patient.[facility]imaIn the event this information is protected by the Federal Confidentiality of Alcohol and Drug Abuse Patient Records regulations: The Federal rules restrict any use of the information to criminally investigate or prosecute any alcohol or drug abuse patient.[facility]imaIn the event this information is protected by the Federal Confidentiality of Alcohol and Drug Abuse Patient Records regulations: The Federal rules restrict any use of the information to criminally investigate or prosecute any alcohol or drug abuse patient.[facility]imaIn the event this information is protected by the Federal Confidentiality of Alcohol and Drug Abuse Patient Records regulations: The Federal rules restrict any use of the information to criminally investigate or prosecute any alcohol or drug abuse patient.[facility]imaIn the event this information is protected by the Federal Confidentiality of Alcohol and Drug Abuse Patient Records regulations: The Federal rules restrict any use of the information to criminally investigate or prosecute any alcohol or drug abuse patient.[facility]imaIn the event this information is protected by the Federal Confidentiality of Alcohol and Drug Abuse Patient Records regulations: The Federal rules restrict any use of the information to criminally investigate or prosecute any alcohol or drug abuse patient.[facility]imaIn the event this information is protected by the Federal Confidentiality of Alcohol and Drug Abuse Patient Records regulations: The Federal rules restrict any use of the information to criminally investigate or prosecute any alcohol or drug abuse patient.[facility]imaIn the event this information is protected by the Federal Confidentiality of Alcohol and Drug Abuse Patient Records regulations: The Federal rules restrict any use of the information to criminally investigate or prosecute any alcohol or drug abuse patient.[facility]imaIn the event this information is protected by the Federal Confidentiality of Alcohol and Drug Abuse Patient Records regulations: The Federal rules restrict any use of the information to criminally investigate or prosecute any alcohol or drug abuse patient.[facility]imaIn the event this information is protected by the Federal Confidentiality of Alcohol and Drug Abuse Patient Records regulations: The Federal rules restrict any use of the information to criminally investigate or prosecute any alcohol or drug abuse patient.[facility]imaIn the event this information is protected by the Federal Confidentiality of Alcohol and Drug Abuse Patient Records regulations: The Federal rules restrict any use of the information to criminally investigate or prosecute any alcohol or drug abuse patient.[facility]imaIn the event this information is protected by the Federal Confidentiality of Alcohol and Drug Abuse Patient Records regulations: The Federal rules restrict any use of the information to criminally investigate or prosecute any alcohol or drug abuse patient.[facility]imaIn the event this information is protected by the Federal Confidentiality of Alcohol and Drug Abuse Patient Records regulations: The Federal rules restrict any use of the information to criminally investigate or prosecute any alcohol or drug abuse patient.[facility]imaIn the event this information is protected by the Federal Confidentiality of Alcohol and Drug Abuse Patient Records regulations: The Federal rules restrict any use of the information to criminally investigate or prosecute any alcohol or drug abuse patient.[facility]imaIn the event this information is protected by the Federal Confidentiality of Alcohol and Drug Abuse Patient Records regulations: The Federal rules restrict any use of the information to criminally investigate or prosecute any alcohol or drug abuse patient.[facility]imaIn the event this information is protected by the Federal Confidentiality of Alcohol and Drug Abuse Patient Records regulations: The Federal rules restrict any use of the information to criminally investigate or prosecute any alcohol or drug abuse patient.[facility]imaIn the event this information is protected by the Federal Confidentiality of Alcohol and Drug Abuse Patient Records regulations: The Federal rules restrict any use of the information to criminally investigate or prosecute any alcohol or drug abuse patient.[facility]imaIn the event this information is protected by the Federal Confidentiality of Alcohol and Drug Abuse Patient Records regulations: The Federal rules restrict any use of the information to criminally investigate or prosecute any alcohol or drug abuse patient.[facility]imaIn the event this information is protected by the Federal Confidentiality of Alcohol and Drug Abuse Patient Records regulations: The Federal rules restrict any use of the information to criminally investigate or prosecute any alcohol or drug abuse patient.[facility]imaIn the event this information is protected by the Federal Confidentiality of Alcohol and Drug Abuse Patient Records regulations: The Federal rules restrict any use of the information to criminally investigate or prosecute any alcohol or drug abuse patient.[facility]imaIn the event this information is protected by the Federal Confidentiality of Alcohol and Drug Abuse Patient Records regulations: The Federal rules restrict any use of the information to criminally investigate or prosecute any alcohol or drug abuse patient.[facility]imaIn the event this information is protected by the Federal Confidentiality of Alcohol and Drug Abuse Patient Records regulations: The Federal rules restrict any use of the information to criminally investigate or prosecute any alcohol or drug abuse patient.[facility]imaIn the event this information is protected by the Federal Confidentiality of Alcohol and Drug Abuse Patient Records regulations: The Federal rules restrict any use of the information to criminally investigate or prosecute any alcohol or drug abuse patient.[facility]imaIn the event this information is protected by the Federal Confidentiality of Alcohol and Drug Abuse Patient Records regulations: The Federal rules restrict any use of the information to criminally investigate or prosecute any alcohol or drug abuse patient.[facility]imaIn the event this information is protected by the Federal Confidentiality of Alcohol and Drug Abuse Patient Records regulations: The Federal rules restrict any use of the information to criminally investigate or prosecute any alcohol or drug abuse patient.[facility]imaIn the event this information is protected by the Federal Confidentiality of Alcohol and Drug Abuse Patient Records regulations: The Federal rules restrict any use of the information to criminally investigate or prosecute any alcohol or drug abuse patient.[facility]imaIn the event this information is protected by the Federal Confidentiality of Alcohol and Drug Abuse Patient Records regulations: The Federal rules restrict any use of the information to criminally investigate or prosecute any alcohol or drug abuse patient.[facility] Reason for Visit (unrecogniz ed section and [...] CONSULT TO SLEEP MEDICINE - ADULT OFFICE/OUTPATIENT [facility]3] 60-74 MINUTES Carla Rico MD [address] [place] [address] Referral ID Status Reason Start Date Expiration Date V isits Requested Visits Authorized [id number] Closed PCP Requested Referral 02/01/2023 02/01/2024 1 [...] section and content) DATE CREATED AUTHOR 02/07/2023 [facility] DATE CREATED AUTHOR AUTHOR'S ORGANIZ ATION 02/26/2023 [facility] EP[facility] DATE CREATED AUTHOR AUTHOR'S ORGANIZ ATION 04/30/2023 [facility] DATE CREATED AUTHOR AUTHOR'S ORGANIZ ATION 04/20/2024 [facility] DATE CREATED AUTHOR AUTHOR'S ORGANIZ ATION 09/10/2024 [facility] DATE CREATED AUTHOR AUTHOR'S ORGANIZ ATION 11/09/2024 [facility] DATE CREATED AUTHOR AUTHOR'S ORGANIZ ATION 11/29/2024 [facility] EPIC Care Teams (unrecognized sec tion and content) Team Status: Active Member Role Status Dates Bri Julian [facility] Primary Care Provider Active Team Status: Inactive Member Role Status Dates Bri [facility] Primary Care Provider Active Start: June 14, 2023 End: June 14, 2023 Maira Gibson APRN Attending Provider Active Start: June 14, 2023 End: June 14, 2023 Team Status: Inactive Member Role Status Dates Maira Gibson APRN Attending Provider Active Start: June 14, 2023 End: June 14, 2023 Rerecording Mixer Relationship Specialty Start Date End Date Love Madison MD [address] [place] [address] PCP - General Family Medicine 01/25/23 Ashley Corcoran NP [address] [place] [address] Nurse Practitioner Family Medicine 01/25/23 Rerecording Mixer Relationship Specialty Start Date End Date Love Madison MD [address] [place] [address] PCP - General Family Medicine 01/25/23 Ashley Corcoran NP [address] [place] [address] Nurse Practitioner Family Medicine 01/25/23 Team Status: [...] End: December 11, 2023 Baldev Mayer - [facility] , DO [facility] Attending Provider Active Start: December 11, 2023 End: December 11, 2023 Rerecording Mixer Relationship Specialty Start Date End Date Love Madison MD [address] [place] [address] PCP - General Family Medicine 01/25/23 Ashley Corcoran NP [address] [place] [address] Nurse Practitioner Family Medicine 01/25/23 Rerecording Mixer Relationship Specialty Start Date End Date Love Madison MD [address] [place] [address] PCP - General Family Medicine 01/25/23 Ashley Corcoran NP [address] [place] [address] Nurse Practitioner Family Medicine 01/25/23 Team Status: [...] March 16, 2024 End: March 16, 2024 Rerecording Mixer Relationship Specialty Start Date End Date Love Madison MD [address] [facility] [place] [address] PCP - General Family Medicine 01/25/23 Ashley Corcoran NP [address] [facility] [place] [address] Nurse Practitioner Family Medicine 01/25/23 Rerecording Mixer Relationship Specialty Start Date End Date Chey Bliss MD [address] [facility] [place] [address] PCP - General Family Medicine 04/13/24 Ashley Corcoran NP [address] [facility] [place] [address] Nurse Practitioner Family Medicine 01/25/23 Rerecording Mixer Relationship Specialty Start Date End Date Chey Bliss MD [address] [facility] [place] [address] PCP - General Family Medicine 04/13/24 Nory Aguilar NP [address] [facility] [place] [address] Nurse Practitioner Family Medicine 04/20/24 Rerecording Mixer Relationship Specialty Start Date End Date Chey Bliss MD [address] [facility] [place] [address] PCP - General Family Medicine 04/13/24 Nory Aguilar NP [address] [facility] [place] [address] Nurse Practitioner Family Medicine 04/20/24 Team Status: [...] May 18, 2024 End: May 18, 2024 Rerecording Mixer Relationship Specialty Start Date End Date Chey Bliss MD [address] [facility] [place] [address] PCP - General Family Medicine 04/13/24 Nory Aguilar NP [address] [facility] [place] [address] Nurse Practitioner Family Medicine 04/20/24 Gabi Mcclure DO [address] [place] [address] Referring Physician Neurology 06/18/24 Rerecording Mixer Relationship Specialty Start Date End Date Chey Bliss MD PCP - General Family Medicine 04/13/24 Nory Aguilar NP [address] [facility] [place] [address] Nurse Practitioner Family Medicine 04/20/24 Gabi Mcclure DO [address] [place] [id number] Referring Physician Neurology 06/18/24 Rerecording Mixer Relationship Specialty Start Date End Date Chey Bliss MD PCP - General Family Medicine 04/13/24 Nory Aguilar NP [address] [facility] [place] [address] Nurse Practitioner Family Medicine 04/20/24 Gabi Mcclure DO [address] [place] [id number] Referring Physician Neurology 06/18/24 Rerecording Mixer Relationship Specialty Start Date End Date Chey Bliss MD PCP - General Family Medicine 04/13/24 Nory Aguilar NP [address] [facility] [place] [address] Nurse Practitioner Family Medicine 04/20/24 Gabi Mcclure DO [address] [address] Referring Physician Neurology 06/18/24 Team Status: Inactive Member Role Status Dates DEUCE Cristina Primary Care Provider Active Start: August 27, 2024 End: August 27, 2024 Gabi Mcclure DO Attending Provider Active Start: August 27, 2024 End: August 27, 2024 Rerecording Mixer Relationship Specialty Start Date End Date Chey Bliss MD PCP - General Family Medicine 04/13/24 Nory Aguilar NP [address] [place] [address] Nurse Practitioner Family Medicine 04/20/24 Gabi Mcclure DO [address] [address] Referring Physician Neurology 06/18/24 Rerecording Mixer Relationship Specialty Start Date End Date Chey Bliss MD PCP - General Family Medicine 04/13/24 Nory Aguilar NP [address] [place] [address] Nurse Practitioner Family Medicine 04/20/24 Gabi Mcclure DO [address] [place] [id number] Referring Physician Neurology 06/18/24 Rerecording Mixer Relationship Specialty Start Date End Date Chey Bliss MD PCP - General Family Medicine 04/13/24 Nory Aguilar NP [address] [place] [address] Nurse Practitioner Family Medicine 04/20/24 Gabi Mcclure DO [address] [address] Referring Physician Neurology 06/18/24 Rerecording Mixer Relationship Specialty Start Date End Date Chey Bliss MD PCP - General Family Medicine 04/13/24 Nory Aguilar NP [address] [place] [address] Nurse Practitioner Family Medicine 04/20/24 Gabi Mcclure DO [address] [place] [id number] Referring Physician Neurology 06/18/24 Rerecording Mixer Relationship Specialty Start Date End Date Chey Bliss MD PCP - General Family Medicine 04/13/24 Nory Aguilar NP [address] [place] [address] Nurse Practitioner Family Medicine 04/20/24 Gabi Mcclure DO [address] [address] Referring Physician Neurology 06/18/24 Rerecording Mixer Relationship Specialty Start Date End Date Chey Bliss MD PCP - General Family Medicine 04/13/24 Nory Aguilar NP [address] [place] [address] Nurse Practitioner Family Medicine 04/20/24 Gabi Mcclure DO [address] [place] [id number] Referring Physician Neurology 06/18/24 Rerecording Mixer Relationship Specialty Start Date End Date Chey Bliss MD PCP - General Family Medicine 04/13/24 Nory Aguilar NP [address] [place] [address] Nurse Practitioner Family Medicine 04/20/24 Gabi Mcclure DO [address] [address] Referring Physician Neurology 06/18/24 Rerecording Mixer Relationship Specialty Start Date End Date Chey Bliss MD PCP - General Family Medicine 04/13/24 Nory Aguilar NP [address] [place] [address] Nurse Practitioner Family Medicine 04/20/24 Gabi Mcclure DO [address] [place] [address] Referring Physician Neurology 06/18/24 Team Status: Inactive Member Role Status Dates DEUCE Cristina Primary Care Provider Active Start: November 05, [...] BE BASED ON THE PRIMARY CLINICAL RECORDS. [employer] provides no warranty or guarantee of the accuracy or completeness of information in this document.
== END 2024-12-03 16:56 | disposition home or self-care (01) ==
PROVIDERS: PCP Nurse Practitioner Family; Visit Provider Obstetrics & Gynecology
DX: O02.1 Missed abortion (principal); Z01.818 Encounter for other preprocedural examination
CPT/HCPCS: 36415; 86850; 86900; 86901

== ENCOUNTER 2024-12-04 09:21 | Day surgery (SDC) | payer BC, OTHER, SELFPAY ==
--- OUTSIDE RECORDS SUMMARY | 2024-12-02 15:00 | XMS_ITS | Encounter Summary ---
Author Organization [facility] Address [address] [place] [address] Care Team Providers Care Pastry Wrapper Name Role Phone Chey Bennett MD Primary Care Provider [phone] Nory Taylor MANAGER COMPLETIONS Unavailable [phone] Marcial Mcclure DO Unavailable [phone] Encounter Details Date Type Department Care Team (Latest Contact Info) Description 12/02/2024 3:00 PM EDT Ancillary Procedure [facility] [address] [place] [address] [place] [address] Missed menses; Positive urine test ([facility]) Social History Tobacco Use Types Packs/Day Years [...] Care Team (Late st Contact Info) Description 12/21/2024 9:00 AM EST Office Visit [facility] [address] [place] [id number] Jonathan Elizabeth DO [address] [facility] [place] [address] documented as of this encounter Procedures Procedure Name Priority Date/Time Associated Diagnosis Comments US OB TRANSVAGINAL Routine 12/02/2024 4: 03 PM EDT Missed menses Positive urine test ([facility]) documented in this encounter Results * US OB transvaginal (12/02/2024 4:03 PM EDT) Anatomical Region Laterality Modality Body Ultrasound 12/03/2024 1:01 PM EDT Impressions 12/03/2024 1:18 PM EDT No evidence of cardiac activity, single pole correlate with beta hCG findings. Dr. Elizabeth/Jennifer Sood PA-C were notified at the time of the examination. TRANSCRIBED BY: ELECTRONICALLY SIGNED BY: Julien Oscar MD Narrative 12/03/2024 1:18 PM EDT FINDINGS: Comparison November 27, 2024 single intrauterine gestational sac with a double decidual reaction, pole crown-rump length 1.7 cm which suggest an 8-week and 1 day gestational age with neighboring yolk sac. There is no cardiac activity with a slightly irregular shaped pole for this age and limited change in size. Procedure Note Julien Oscar MD - 12/03/2024 FINDINGS: Comparison November 27, 2024 single intrauterine gestational sac with adouble decidual reaction, pole crown-rump length 1.7 cm whichsuggest an 8-week and 1 day gestational age with neighboring yolk sac.There is no cardiac activity with a slightly irregular shaped polefor this age and limited change in size. IMPRESSION: No evidence of cardiac activity, single pole correlate with beta hCGfindings. Dr. Elizabeth/Jennifer Sood PA-C were notified at the time of the examination. TRANSCRIBED BY: ELECTRONICALLY SIGNED BY: Julien Oscar MD us Jonathan Elizabeth DO IMG OB US PROCEDURES Final Resul t documented in this encounter Visit Diagnoses Diagnosis Missed menses Positive urine test ([facility]) documented in this encounter Additional Health Concerns Assessment Noted Time PHQ-9 Depression Total Score: 0 04/13/19 25 4:00 PM EST documented as of this encounter Care Teams Pastry Wrapper Relationship Specialty Start Date End Date Chey Bennett MD PCP - General Family Medicine 04/13/24 Nory Taylor NP [address] [place] [address] Nurse Practitioner Family Medicine 04/20/24 Marcial Mcclure DO [address] [address] Referring Physician Neurology 06/18/24 documented as of this encounter
--- OUTSIDE RECORDS SUMMARY | 2024-12-04 09:25 | XMS_ITS | Encounter Summary ---
Author Organization [facility] Address [address] [place] [address] Care Team Providers Care Customer Experience Analyst Name Role Phone Chey Bennett MD Primary Care Provider [phone] Nory Taylor TOWEL STRETCHER Unavailable [phone] Marcial Mcclure DO Unavailable [phone] Encounter Details Date Type Department Care Team (Late st Contact Info) Description 11/27/2024 Orders Only [facility] [address] [place] [address] Shanti Florez LPN Missed menses; Positive urine test ([facility]); Abnormal finding on ultrasound Social History Tobacco Use Types Packs/Day Years [...] on file documented as of this encounter Progress Notes * Shanti Florez LPN - 11/27/2024 10:35 AM EDT 0905am spoke with patient and informed her that office received scan results from this morning. Informed patient that results did not show viable . Discussed follow up scan with patient, discussed vaginal bleeding may appear (patient has not had any) and possible D&C. Patient and spouse desire to have follow up scan next week and provider will be able to talk with them after in regards to plan of care. Shanti Ramos LPN documented in this encounter Plan of Treatment Upcoming Encounters Date Type Department Care Team (Late st Contact Info) Description 12/21/2024 9:00 AM EST Office Visit [facility] [address] [place] [address] Jonathan Elizabeth DO [address] [place] [address] Scheduled Orders Name Type Priority Associated Diagnoses Orde r Schedule US OB transvaginal Imaging Routine Missed menses Positive urine test ([facility]) Abnormal finding on ultrasound Expected: 11/27/2024 (Approximate), Expires: 02/27/2025 documented as of this encounter Visit Diagnoses Diagnosis Missed menses Positive urine test ([facility]) Abnormal finding on ultrasound documented in this encounter Additional Health Concerns Assessment Noted Time PHQ-9 Depression Total Score: 0 04/13/19 4:00 PM EST documented as of this encounter Care Teams Customer Experience Analyst Relationship Specialty Start Date End Date Chey Bennett MD PCP - General Family Medicine 04/13/24 Nory Taylor NP [address] [place] [address] Nurse Practitioner Family Medicine 04/20/24 Marcial Mcclure DO [address] [address] Referring Physician Neurology 06/18/24 documented as of this encounter
--- OUTSIDE RECORDS SUMMARY | 2024-12-04 09:25 | XMS_ITS | Encounter Summary ---
Author Organization [facility] Address [address] [place] [address] Care Team Providers Care Crop Scout Name Role Phone Chey Bennett MD Primary Care Provider [phone] Nory Taylor TELEPHONE CLERK TELEGRAPH OFFICE Unavailable [phone] Marcial Mcclure DO Unavailable [phone] Encounter Details Date Type Department Care Team (Late st Contact Info) Description 06/01/2024 Orders Only [facility] Family Medicine [address] [place] [address] Ashley Webb MA Tachycardia; Seizures [...] 9:00 AM EST Office Visit [facility] [place] [address] [place] [id number] Jonathan Elizabeth DO [address] [place] [address] documented as of this encounter Visit Diagnoses Diagnosis Tachycardia Unspecified tachycardia Seizures (HCC) Other convulsions Ectopic atrial rhythm Abnormal EKG Nonspecific abnormal electrocardiogram (ECG) (EKG) documented in this encounter Additional Health Concerns Assessment Noted Time PHQ-9 Depression Total Score: 0 04/13/19 25 4:00 PM EST documented as of this encounter Care Teams Crop Scout Relationship Specialty Start Date End Date Chey Bennett MD PCP - General Family Medicine 04/13/24 Nory Taylor NP [address] [place] [address] Nurse Practitioner Family Medicine 04/20/24 Marcial Mcclure DO [address] [place], [place] [id number] Referring Physician Neurology 06/18/24 documented as of this encounter
--- OUTSIDE RECORDS SUMMARY | 2024-12-04 09:25 | XMS_ITS | Clinical Summary ---
Author Organization [facility] Address [address] [place] [address] Care Team Providers Care Veneer Patcher Name Role Phone Unavailable Primary Care Provider Unavailabl e Allergies No known active allergies Medications * This document contains information received from the source organization and may not represent a complete record from that organization. metFORMIN ER (GLUCOPHAGE XR) 500 mg 24 hr tablet Take 1,000 mg by mouth daily with breakfast. 2 Active midazolam (NAYZILAM) 5 mg/spray (0.1 mL) nasal sprayIndications :Juvenile myoclonic epilepsy, not intractable, with status epilepticus (HCC) Use 1 spray in one nostril as needed for seizures lasting longer than 2 minutes. May repeat dose in alternate nostril after 10 minutes based on response and tolerability. 2 Each 1 4 12/17/19 25 Active venlafaxine ER (EFFEXOR XR) 37.5 mg 24 hr capsule Take 37.5 mg by mouth once daily. 4 Active magnesium hydroxide (MAGNESIA ORAL) Take 500 mg by mouth once daily. Active folic acid 1 mg tabletIndication s:Juvenile myoclonic epilepsy, not intractable, with status epilepticus (HCC) Take 2 tablets by mouth once daily. 180 tablet 3 4 02/13/20 25 Active lamoTRIgine (LAMICTAL) 100 mg tablet Take 1 tablet by mouth two times a day. Take with 25 mg tablet. 180 tablet 3 5 03/04/19 26 Active lamoTRIgine (LAMICTAL) 25 mg tablet Take 2 tablets by mouth two times a day. Take with 100 mg tablet for a total of 150 mg twice daily. 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.edu/. Last address used for calculation [address] 02/01/2023 Comments No Sex and Gender Information [...] Last Done Comments Peds To Adult Transition Inveronica nichols Discussion 2014 Peds To Adult Transition Adrianna ual Assessment 2016 HPV Vaccine (1 - 3-dose series) 2017 Meningococcal B Vaccine (1 o f 2 - Standard) 2018 Anxiety Screening 2020 Chlamydia Screening (18-24) 2020 GC (Gonorrhea) Screening (18-24) 2020 HIV Screening 2020 Hepatitis C Screening 2020 Cervical Cancer Screening 10/23/2023 Covid-19 Vaccine (3 - 2024-2 6 season) 2024 05/25/2021, 05/04/2021 Influenza Vaccine (#1) 2024 12/11/2023, 2022 DTaP,Tdap,Td Vaccine (7 - Td or Tdap) 05/26/2025 05/27/2015, 06/10/2007, 01/24/2004, Additional history exists Hepatitis B Vaccine Completed 07/20/2022, 06/19/2022, 06/11/2003, Additional history exists Insurance [facility]UE [facility] PPO Johanne [address]
--- OUTSIDE RECORDS SUMMARY | 2024-12-04 09:25 | XMS_ITS | Encounter Summary ---
Author Organization [facility] Address [address] [place] [address] Care Team Providers Care Commanding Officer Garage Name Role Phone Unavailable Primary Care Provider Unavailabl e Source Comments In the event this information is protected by the Federal Confidentiality of Alcohol and Drug AbusePatient Records regulations: The Federal rules restrict any use of the information to criminally investigate or prosecute any alcohol or drug abuse patient.[facility] Reason for Visit * Reason Onset Date Comments Refill Request 08/18/2024 Encounter Details Date Type Department Care Team (Late st Contact Info) Description 08/18/2024 Refill Neurology [address] [place] [address] Adrianna Brito PA-C [address] [place] [address] Refill Request Social History Tobacco Use Types Packs/Day Years Used Date Smoking Tobacco: Never Passive Smoke Exposure: Never Smokeless Tobacco: Never PHQ-2 Answer Date Recorded PHQ-2 score 0 11/12/2023 Area Deprivation Index Answer Date Wally rded National Score (1-100), lower number is lower ri sk 81 02/01/2023 State Score (1-10), lower number is lower risk 7 02/01/2023 Data from: https://www.neighborhoodatlas.medicine.[facility].edu/. Last address used for calculation [address] 02/01/2023 Comments No Sex and Gender [...]
--- OUTSIDE RECORDS SUMMARY | 2024-12-04 09:25 | XMS_ITS | Encounter Summary ---
Author Organization [facility] Address [address] [place] [address] Care Team Providers Care Segment Producer Name Role Phone Chey Bennett MD Primary Care Provider [phone] Nory Taylor NP Unavailable [phone] Marcial Mcclure DO Unavailable [phone] Encounter Details Date Type Department Care Team (Late st Contact Info) Description 05/18/2024 External Result Encounter [facility] External Department Unsolicited Nory Taylor NP [address] [place], [place] [id number] Social History Tobacco Use Types Packs/Day Years [...] EST Office Visit [facility] [address] [facility] [place] [address] Jonathan Elizabeth DO [address] [facility] [place] [address] documented as of this encounter Procedures Procedure Name Priority Date/Time Associated Diagnosis Comments TRANSTHORACIC ECHO (TTE) COMPLETE 05/18/2024 1:56 PM EDT documented in this encounter Results * Transthoracic echo (TTE) complete (05/18/2024 1:56 PM EDT) Anatomical Region Laterality Modality Heart Ultrasound 05/18/2024 1:56 PM EDT Narrative 05/18/2024 10:28 PM EDT [facility] Main [address] [address] Echocardiogram Signed Patient: Gaye Bird MR#: [id number] : 2000 Acct:[id number] Age/Sex: 23 / F ADM Date: 05/18/24 Loc: Room: Type: [facility] Attending Dr: Nory Taylor SENIOR RESEARCH EXECUTIVE-C Ordering Provider: Nory Taylor CNP Date of Service: 05/18/24/ ECH/ECH echo transthoracic: tachycardia, abnormal EKG Copies to: MD Nory Ordonez [facility] Patient Location: EL : 2000 Gender: Female [...] : Transcribed By: HEATHER Performed At: 05/18/24 3914 Signed By: Hannah Rajan MD 05/18/24 1019 Procedure Note Hannah Rajan MD - 05/18/2024 [facility] Main [place] [address] [place] [address] Echocardiogram Signed Patient: Gaye Bird LMR#: [id number] : 2000Acct:[id number] Age/Sex: 23 / FADM Date: 05/18/24 Loc: Room:Type: [facility] Attending Dr: Nory Taylor SENIOR RESEARCH EXECUTIVE-C Ordering Provider: Nory Taylor CNP Date of Service: 05/18/24/ ECH/ECH echo transthoracic: tachycardia,abnormal EKG Copies to: MD Nory Ordonez [facility] Patient Location: : 2000 Gender: Female (MM/DD/YYYY) [...] PM: Transcribed By: HEATHER Performed At: 05/18/24 4076 Signed By: Hannah Rajan MD 05/18/24 1877 Nory Taylor NP CV ECHO PROCEDURES Final R esult documented in this encounter Visit Diagnoses Not on filedocumented in this encounter Additional Health Concerns Assessment Noted Time PHQ-9 Depression Total Score: 0 04/13/19 4:00 PM EST documented as of this encounter Care Teams Segment Producer Relationship Specialty Start Date End Date Sabrina, Chey Holly MD PCP - General Family Medicine 04/13/24 Nory Taylor NP [address] [place] [address] Nurse Practitioner Family Medicine 04/20/24 Marcial Mcclure DO [address] [facility] [address] [place] [address] Referring Physician Neurology 06/18/24 documented as of this encounter
--- OUTSIDE RECORDS SUMMARY | 2024-12-04 09:25 | XMS_ITS | Encounter Summary ---
Author Organization [employer] [facility] tem Address [id number] [address] [place] [address] Care Team Providers Care Adon Name Role Phone No Pcp, No Pcp Primary Care Provider Unavailabl e Encounter Details Date Type Department Care Team (Late st Contact Info) Description 10/29/2018 Telephone [facility] [address] [place] [address] Grace Van CMA Social History Tobacco Use [...] on filedocumented in this encounter Care Teams Adon Relationship Specialty Start Date End Date No Pcp, [place] [address] PCP - General Family Medicine 01/19/23 documented as of this encounter
--- OUTSIDE RECORDS SUMMARY | 2024-12-04 09:25 | XMS_ITS | Encounter Summary ---
Author Organization [facility] Address [address] [place] [address] Care Team Providers Care Case Technician Name Role Phone Chey Bennett MD Primary Care Provider Nory Taylor PLANT GUIDE Unavailable [phone] Marcial Mcclure DO Unavailable [phone] Encounter Details Date Type Department Care Team (Late st Contact Info) Description 05/19/2024 Orders Only [facility] Family Medicine [address] [place] [address] Unallocated, [facility] Provider, [address] [place] [address] Social History Tobacco Use Types Packs/Day Years [...] EST Office Visit [facility] [address] [place] [phone] Jonathan Elizabeth DO [address] [facility] [address] [place], [place] [phone] documented as of this encounter Procedures Procedure [...] documented as of this encounter Care Teams Case Technician Relationship Specialty Start Date End Date Chey Bennett MD PCP - General Family Medicine 04/13/24 Nory Taylor NP [address] [place] [address] Nurse Practitioner Family Medicine 04/20/24 Marcial Mcclure DO [address] [place] [address] Referring Physician Neurology 06/18/24 documented as of this encounter
--- OUTSIDE RECORDS SUMMARY | 2024-12-04 09:25 | XMS_ITS | Encounter Summary ---
Author Organization [facility] Address [address] [place] [address] Care Team Providers Care Home Care Companion Name Role Phone Chey Bennett MD Primary Care Provider [phone] Nory Taylor INTERVENTIONAL CARDIOLOGIST Unavailable [phone] Marcial Mcclure DO Unavailable [phone] Encounter Details Date Type Department Care Team (Latest Contact Info) Description 12/01/2024 Travel Social History Tobacco Use Types Packs/Day [...] Description 12/21/2024 9:00 AM EST Office Visit [facility] [address] [place] [address] [place] [address] Jonathan Elizabeth DO [address] [facility] [place] [address] documented as of this encounter Visit Diagnoses Not on filedocumented in this encounter Additional Health Concerns Assessment Noted Time PHQ-9 Depression Total Score: 0 04/13/19 4:00 PM EST documented as of this encounter Care Teams Home Care Companion Relationship Specialty Start Date End Date Chey Bennett MD PCP - General Family Medicine 04/13/24 Nory Taylor NP [address] [place] [address] Nurse Practitioner Family Medicine 04/20/24 Marcial Mcclure DO [address] [place] [address] Referring Physician Neurology 06/18/24 documented as of this encounter
--- OUTSIDE RECORDS SUMMARY | 2024-12-04 09:25 | XMS_ITS | Encounter Summary ---
Author Organization [facility] Address [address] [facility] [place] [address] Care Team Providers Care Interior Design Teacher Name Role Phone Chey Bennett MD Primary Care Provider [phone] Nory Taylor NP Unavailable [phone] Marcial Mcclure DO Unavailable [phone] Encounter Details Date Type Department Care Team (Late st Contact Info) Description 04/20/2024 External Result Encounter [facility] External Department Unsolicited Nory Taylor NP [address] [place], [place] [phone] Social History Tobacco Use Types Packs/Day Years [...] EST Office Visit [facility] [address] [facility] [place] [address] Jonathan Elizabeth DO [address] [facility] [place] [address] documented as of this encounter Procedures Procedure Name Priority Date/Time Associated Diagnosis Comments ECG 12-LEAD 04/20/2024 12:00 PM EST documented in this encounter Results * ECG 12 lead (04/20/2024 12:00 PM EST) 04/20/2024 12:0 0 PM EST [facility] - 04/20/2024 6:38 PM EST [facility] Main [address] [address] Electrocardiograph Report Signed Patient: Gaye Bird MR#: [id number] : 2000 Acct:[id number] Age/Sex: 23 / F ADM Date: 04/20/24 Loc: Room: Type: [facility] Attending Dr: Nory TRIPATHI Ordering Provider: Nory [...] infarct Abnormal ECG Confirmed by Hannah Rajan ([id number]) on 04/20/2024 6:37:52 PM Referred By: Electronically Signed By: Hananh Rajan Transcribed By: MUS Signed By Hannah Rajan MD [id number] [phone] Procedure Note Hannah Rajan MD - 04/20/2024 [facility] Main [place] [address] [place] [address] Electrocardiograph Report Signed Patient: Gaye Bird LMR#: [id number] : 2000Acct:[id number] Age/Sex: 23 / FADM Date: 04/20/24 Loc: Room:Type: [facility] Attending Dr: Nory Taylor WOODEN BOX MAKER-C Ordering Provider: Nory Taylor CNP Date of [...] infarct Abnormal ECG Confirmed by Hannah Rajan ([id number]) on 04/20/2024 6:37:52 PM Referred By: Electronically Signed By: Hannah Rajan Transcribed By: MUS Signed By Hannah Rajan MD 5 0885 us Nory Taylor NP ECG ORDERABLES Final Resu lt [address] [address], documented in this encounter Visit Diagnoses Not on filedocumented in this encounter Additional Health Concerns Assessment Noted Time PHQ-9 Depression Total Score: 0 04/13/19 25 4:00 PM EST documented as of this encounter Care Teams Interior Design Teacher Relationship Specialty Start Date End Date Chey Bennett MD PCP - General Family Medicine 04/13/24 Nory Taylor NP [address] [place] [address] Nurse Practitioner Family Medicine 04/20/24 Marcial Mcclure DO [address] [place] [address] Referring Physician Neurology 06/18/24 documented as of this encounter
--- OUTSIDE RECORDS SUMMARY | 2024-12-04 09:25 | XMS_ITS | Encounter Summary ---
Author Organization [employer] [facility] tem Address [id number] [address] [place] [address] Care Team Providers Care State Farm Agent Name Role Phone No Pcp, No Pcp Primary Care Provider Unavailabl e Encounter Details Date Type Department Care Team (Late st Contact Info) Description 05/26/2021 Documentation [facility] Family Medicine [address] [place] [address] [place] [address] Gloria Edgar CMA Social History Tobacco Use [...] documented as of this encounter Care Teams State Farm Agent Relationship Specialty Start Date End Date No Pcp, [place] [address] PCP - General Family Medicine 01/19/23 documented as of this encounter
--- OUTSIDE RECORDS SUMMARY | 2024-12-04 09:25 | XMS_ITS | Encounter Summary ---
Author Organization [facility] Address [address] [place] [address] Care Team Providers Care Gasket Supervisor Name Role Phone Chey Bennett MD Primary Care Provider [phone] Nory Taylor APPLICATION DEVELOPMENT LIAISON Unavailable [phone] Marcial Mcclure DO Unavailable [phone] Encounter Details Date Type Department Care Team (Latest Contact Info) Description 11/20/2024 Travel Social History Tobacco Use Types Packs/Day [...] 9:00 AM EST Office Visit [facility] [address] [place] [address] [place] [address] Jonathan Elizabeth DO [address] [facility] [place] [address] documented as of this encounter Visit Diagnoses Not on filedocumented in this encounter Additional Health Concerns Assessment Noted Time PHQ-9 Depression Total Score: 0 04/13/19 4:00 PM EST documented as of this encounter Care Teams Gasket Supervisor Relationship Specialty Start Date End Date Chey Bennett MD PCP - General Family Medicine 04/13/24 Nory Taylor NP [address] [place] [address] Nurse Practitioner Family Medicine 04/20/24 Marcial Mcclure DO [address] [place] [address] Referring Physician Neurology 06/18/24 documented as of this encounter
--- OUTSIDE RECORDS SUMMARY | 2024-12-04 09:25 | XMS_ITS | Encounter Summary ---
Author Organization [facility] Address [address] [place] [address] Care Team Providers Care Cellular Plastics Cutter Name Role Phone Unavailable Primary Care Provider Unavailabl e Source Comments In the event this information is protected by the Federal Confidentiality of Alcohol and Drug AbusePatient Records regulations: The Federal rules restrict any use of the information to criminally investigate or prosecute any alcohol or drug abuse patient.[facility] Encounter Details Date Type Department Care Team (Late st Contact Info) Description 04/15/2023 Patient Msg Neurology [address] [place] [id number] Provider, C[facility] Please confirm your sleep study Social History Tobacco Use Types Packs/Day Years Used Date Smoking Tobacco: Never Smokeless Tobacco: Never PHQ-2 Answer Date Recorded PHQ-2 score 0 06/04/2021 Area Deprivation Index Answer Date Wally rded National Score (1-100), lower number is lower ri sk 81 02/01/2023 State Score (1-10), lower number is lower risk 7 02/01/2023 Data from: https://www.neighborhoodatlas.medicine.[facility].edu/. Last address used for calculation Johanne [facility] 02/01/2023 Comments No Sex and Gender [...]
--- OUTSIDE RECORDS SUMMARY | 2024-12-04 09:25 | XMS_ITS | Encounter Summary ---
Author Organization [facility] Address [address] [place] [address] Care Team Providers Care Greenkeeper Name Role Phone Chey Bennett MD Primary Care Provider [phone] Milly Taylor FOREIGN SERVICE OFFICER Unavailable [phone] Marcial Mcclure DO Unavailable [phone] Encounter Details Date Type Department Care Team (Late st Contact Info) Description 11/27/2024 Clinisync Result Encounter [facility] External Department Unsolicited Alfredito Elizabeth DO [address] [facility] [address] [place], [place] [phone] Social History Tobacco Use Types Packs/Day Years [...] EST Office Visit [facility] [address] [facility] [place] [address] Alfredito Elizabeth DO [address] [facility] [address] [place], [place] [address] documented as of this encounter Procedures Procedure Name Priority Date/Time Associated Diagnosis Comments US OB TRANSVAGINAL 11/27/2024 7: 52 AM EDT documented in this encounter Results * US OB TRANSVAGINAL (11/27/2024 7:52 AM EDT) Anatomical Region Laterality Modality Other 11/27/2024 7:52 AM EDT Narrative 11/27/2024 7:55 [place] [address] Ultrasound Report Signed Patient: GAYE WALLS MR#: [id number] : 2000 Acct:[id number] Age/Sex: 24 / F ADM Date: 11/27/24 Loc: US Attending Dr: Alfredito Elizabeth D.O. Ordering Physician: Alfredito Elizabeth D.O. Date of Service: 11/27/24 Procedure(s): US OB transvaginal Accession Number(s): [id number] cc: Alfredito Elizabeth D.O.; MILLY TAYLOR NP The [address] [id number] Patient Name: GAYE WALLS MRN: [id number] date: 2000 Sex: F Assigned Patient Location: US Current Patient Location: US Accession/Order Number: [id number] Exam Date: 11/27/2024 07:02 Report Date: 11/27/2024 07:52 At the request of: ALFREDITO ELIZABETH DO Procedure: US OB transvaginal OB TRANSVAGINAL ULTRASOUND CLINICAL DATA: Missed menses and positive test. Transvaginal evaluation of the pelvis was performed. There is a gestational sac within the uterus. A yolk sac and pole are present. The crown-rump length measurement of 1.6 cm correlates with ultrasound age of 8 weeks 0 days. The estimated date of delivery is 07/09/2025. The scrap breaker did not document cardiac activity. The scrap breaker also raised question of the possibility of [...] Dunaway M.D. 11/27/2024 7:52 AM Dictation Location: [place] [address] Electronically authenticated by: [id number] Y Date: 11/27/2024 07:52 Dictated By: Elissa Dunaway M.D. Signed By: 11/27/24 0755 DD/ 0752 TD/TT: Sensory Scientist: Procedure Note Radiology, Radiologist, - 11/27/2024 [place] [address] Ultrasound Report Signed Patient: KALYANI WALLS#: [id number] : 2000Acct:[id number] Age/Sex: Date: 11/27/24 Loc: US Attending Dr: Alfredito Elizabeth D.O. Ordering Physician: Alfredito Elizabeth D.O. Date of Service: 11/27/24 Procedure(s): US OB transvaginal Accession Number(s): [id number] cc: Alfredito Elizabeth D.O.; MILLY TAYLOR NP [address] [address] Patient Name: GAYE WALLS MRN: [id number] date: 2000 Sex: F Assigned Patient Location: US Current Patient Location: US Accession/Order Number: [id number] Exam Date: 11/27/2024 07:02 Report Date: 11/27/2024 07:52 At the request of: ALFREDITO ELIZABETH DO Procedure: US OB transvaginal OB TRANSVAGINAL ULTRASOUND CLINICAL DATA: Missed menses and positive test. Transvaginal evaluation of the pelvis was performed. There is agestational sac within the uterus. A yolk sac and pole are present. Thecrown-rump length measurement of 1.6 cm correlates with ultrasound age of 8 weeks 0days. The estimated date of delivery is 07/09/2025. The scrap breaker did not document cardiac activity. The scrap breaker also raised question of the possibility of gastroschisis. The cervix is closed and measuresapproximately 3.7 cm in length. Both ovaries are seen. The right measures 4.4 x 2.6 x 2.7 cm . Leftovary measures 2.5 x 2.1 x 2.1 cm. There are 2 cystic areas within the rightovary. The larger measures 2.2 x 2.0 x 2.2 cm. There are tiny left ovarian follicles. There is documentation of ovarian blood flow. No free fluidis noted. US/US OB transvaginal IMPRESSION: POSSIBLE NONVIABLE 8 WEEK , DISCUSSED ABOVE. FOLLOW-UP WILLBE NEEDED. Impression dictated by: Elissa Dunaway M.D. 11/27/2024 7:52 AM Dictation Location: [place] [address] Electronically authenticated by: [id number] Y Date: 7:52 Dictated By: Elissa Dunaway M.D. Signed By:11/27/24 0755 DD/ 0752 TD/TT: Sensory Scientist: us Alfredito Elizabeth DO [facility] Final Result documented in this encounter Visit Diagnoses Not on filedocumented in this encounter Additional Health Concerns Assessment Noted Time PHQ-9 Depression Total Score: 0 04/13/19 25 4:00 PM EST documented as of this encounter Care Teams Greenkeeper Relationship Specialty Start Date End Date Chey Bennett MD PCP - General Family Medicine 04/13/24 Milly Taylor NP [address] [place] [address] Nurse Practitioner Family Medicine 04/20/24 Marcial Mcclure DO [address] [address] Referring Physician Neurology 06/18/24 documented as of this encounter
--- OUTSIDE RECORDS SUMMARY | 2024-12-04 09:25 | XMS_ITS | Encounter Summary ---
Author Organization [employer] tem Address [id number] [address] [place] [address] Care Team Providers Care Window Sash Installer Name Role Phone No Pcp, No Pcp Primary Care Provider Unavailabl e Reason for Visit * Reason Comments Med Refill Encounter Details Date Type Department Care Team (Late st Contact Info) Description 04/12/2021 Refill [facility] [address] [place] [address] [place] [address] Catherine Victor APRN-KRYSTAL [address] [facility] [address], [place] [address] Anxiety and depression Social History [...] documented as of this encounter Care Teams Window Sash Installer Relationship Specialty Start Date End Date No Pcp, [place] [address] PCP - General Family Medicine 01/19/23 documented as of this encounter
--- OUTSIDE RECORDS SUMMARY | 2024-12-04 09:25 | XMS_ITS | Encounter Summary ---
Author Organization [facility] [employer] Address [facility] [place]-[id number] [address] [place] [address] Care Team Providers Care Final Cigar And Box Examiner Name Role Phone No Pcp, No Pcp Primary Care Provider Unavailabl e Reason for Visit * Reason Onset Date Comments Med Refill Med Refill 03/15/2020 Encounter Details Date Type Department Care Team (Late st Contact Info) Description 03/14/2020 Refill [facility] [address] [place] [address] [place] [address] Bri Julian, AIRPORT SCREENER-[facility] [address] [facility] [address] [id number] Anxiety and depression Social History Tobacco Use [...] documented as of this encounter Care Teams Final Cigar And Box Examiner Relationship Specialty Start Date End Date No Pcp, [place] [address] PCP - General Family Medicine 01/19/23 documented as of this encounter
--- OUTSIDE RECORDS SUMMARY | 2024-12-04 09:25 | XMS_ITS | Encounter Summary ---
Author Organization [employer] Address [facility] [place]-[id number] [address] [place] [address] Care Team Providers Care Artificial Limb Fitter Name Role Phone No Pcp, No Pcp Primary Care Provider Unavailabl e Reason for Visit * Reason Comments Med Refill Encounter Details Date Type Department Care Team (Late st Contact Info) Description 05/15/2021 Refill [facility] [address] [place] [address] [place] [address] Bri Julian, BEULAH-ENGLISH FACULTY MEMBER [address] [place] [address] Anxiety and depression Social History Tobacco Use [...] documented as of this encounter Care Teams Artificial Limb Fitter Relationship Specialty Start Date End Date No Pcp, [place] [address] PCP - General Family Medicine 01/19/23 documented as of this encounter
--- OUTSIDE RECORDS SUMMARY | 2024-12-04 09:25 | XMS_ITS | Encounter Summary ---
Author Organization [employer] Address [facility]-[id number] [address] [place] [address] Care Team Providers Care Gold Leaf Laborer Name Role Phone No Pcp, No Pcp Primary Care Provider Unavailabl e Encounter Details Date Type Department Care Team (Late st Contact Info) Description 05/30/2022 Telephone [facility] [address] [place] [address] [phone] Johny Mooney CMA Social History Tobacco Use [...] documented as of this encounter Care Teams Gold Leaf Laborer Relationship Specialty Start Date End Date No Pcp, No Pcp [place] [address] PCP - General Family Medicine 01/19/23 documented as of this encounter
--- OUTSIDE RECORDS SUMMARY | 2024-12-04 09:25 | XMS_ITS | Encounter Summary ---
Author Organization [facility] Address [address] [place] [address] Care Team Providers Care Bark Spudder Name Role Phone Unavailable Primary Care Provider Unavailabl e Source Comments In the event this information is protected by the Federal Confidentiality of Alcohol and Drug AbusePatient Records regulations: The Federal rules restrict any use of the information to criminally investigate or prosecute any alcohol or drug abuse patient.[facility] Encounter Details Date Type Department Care Team (Late st Contact Info) Description 03/07/2023 Get Medical Advice Pediatric Epilepsy [address] [place], [place] [id number] Micky Rico MD [address] [place] [address] Update medication Social History Tobacco Use Types Packs/Day Years Used Date Smoking Tobacco: Never Smokeless Tobacco: Never PHQ-2 Answer Date Recorded PHQ-2 score 0 06/04/2021 Area Deprivation Index Answer Date Wally rded National Score (1-100), lower number is lower ri sk 81 02/01/2023 State Score (1-10), lower number is lower risk 7 02/01/2023 Data from: https://www.neighborhoodatlas.[facility]/. Last address used for calculation [address] [facility] 02/01/2023 Comments No Sex and Gender Information [...]
--- OUTSIDE RECORDS SUMMARY | 2024-12-04 09:25 | XMS_ITS | Encounter Summary ---
Author Organization [facility] Address [address] [place] [address] Care Team Providers Care Molecular Biologist Name Role Phone Chey Bennett MD Primary Care Provider [phone] Nory Taylor NP Unavailable [phone] Marcial Mcclure DO Unavailable [phone] Encounter Details Date Type Department Care Team (Late st Contact Info) Description 09/18/2024 Abstract [facility] [place] [address] [place] [address] Yasmeen Samson NP [address] [facility] [place] [address] Social History Tobacco Use Types Packs/Day [...] EST Office Visit [facility] [address] [place] [address] Jonathan Elizabeth DO [address] [facility] [place] [address] documented as of this encounter Visit Diagnoses Not on filedocumented in this encounter Additional Health Concerns Assessment Noted Time PHQ-9 Depression Total Score: 0 04/13/19 4:00 PM EST documented as of this encounter Care Teams Molecular Biologist Relationship Specialty Start Date End Date Chey Bennett MD PCP - General Family Medicine 04/13/24 Nory Taylor NP [address] [place] [address] Nurse Practitioner Family Medicine 04/20/24 Marcial Mcclure DO [address] [place] [address] Referring Physician Neurology 06/18/24 documented as of this encounter
--- OUTSIDE RECORDS SUMMARY | 2024-12-04 09:25 | XMS_ITS | Encounter Summary ---
Author Organization [facility] Address [address] [place] [address] Care Team Providers Care Email Campaign Manager Name Role Phone Chey Benntet MD Primary Care Provider [phone] Nory Taylor DB2 SYSTEMS PROGRAMMER Unavailable [phone] Marcial Mcclure DO Unavailable [phone] Encounter Details Date Type Department Care Team (Latest Contact Info) Description 11/26/2024 Travel Social History Tobacco Use Types Packs/Day [...] Description 12/21/2024 9:00 AM EST Office Visit [facility] [place] [address] [place] [address] [place] [address] Jonathan Elizabeth DO [address] [facility] [place] [address] documented as of this encounter Visit Diagnoses Not on filedocumented in this encounter Additional Health Concerns Assessment Noted Time PHQ-9 Depression Total Score: 0 04/13/19 4:00 PM EST documented as of this encounter Care Teams Email Campaign Manager Relationship Specialty Start Date End Date Chey Bennett MD PCP - General Family Medicine 04/13/24 Nory Taylor NP [address] [place] [address] Nurse Practitioner Family Medicine 04/20/24 Marcial Mcclure DO [address] [place] [address] Referring Physician Neurology 06/18/24 documented as of this encounter
--- OUTSIDE RECORDS SUMMARY | 2024-12-04 09:25 | XMS_ITS | Encounter Summary ---
Author Organization [employer] tem Address [id number] [address] [place] [address] Care Team Providers Care Coach Tour Driver Name Role Phone No Pcp, No Pcp Primary Care Provider Unavailabl e Encounter Details Date Type Department Care Team (Late st Contact Info) Description 09/08/2020 [facility] [address] [place] [address] Carol Allen CMA Social History Tobacco Use [...] 3:54 PM EST Sexual Orientation Straight 12/24/2023 3 :54 PM EST COVID-19 Exposure Response Date Recorded In the last month, have you been in contact with someone who was confirmed or suspected to have Coronavirus / COVID-19? No / Unsure 09/10/2020 8:08 PM EDT documented as of this encounter Miscellaneous Notes * Telephone Encounter - Carol Allen CMA - 09/08/2020 9:09 AM EDT ----- Message from Bri Julian APRN-TOLL BOOTH OPERATOR sent at 09/08/2020 7:51 AM EDT ----- [...] documented as of this encounter Care Teams Coach Tour Driver Relationship Specialty Start Date End Date No Pcp, [place] [address] PCP - General Family Medicine 01/19/23 documented as of this encounter
--- OUTSIDE RECORDS SUMMARY | 2024-12-04 09:25 | XMS_ITS | Encounter Summary ---
Author Organization [employer] [facility] tem Address [facility][id number] [address] [place] [address] Care Team Providers Care Char Dust Cleaner And Salvager Name Role Phone No Pcp, No Pcp Primary Care Provider Unavailabl e Encounter Details Date Type Department Care Team (Late st Contact Info) Description 05/16/2022 Telephone [facility] [address] [place] [address] Bri Julian, RETAIL SALES PROFESSIONAL-[facility] [address] [facility] [address] [place] [id number] Social History Tobacco Use Types Packs/Day Years [...] documented as of this encounter Care Teams Char Dust Cleaner And Salvager Relationship Specialty Start Date End Date No Pcp, No Pcp [place] [address] PCP - General Family Medicine 01/19/23 documented as of this encounter
--- OUTSIDE RECORDS SUMMARY | 2024-12-04 09:25 | XMS_ITS | Encounter Summary ---
Author Organization [facility] Address [address] [place] [address] Care Team Providers Care Court Crier Name Role Phone Ashley Corcoran PEDIATRIC PATHOLOGIST Unavailable [phone] Love [place] MD Primary Care Provider [phone] Chey Bennett MD Primary Care Provider [phone] Nory Taylor PEDIATRIC PATHOLOGIST Unavailable [phone] Marcial Mcclure DO Unavailable [phone] Encounter Details Date Type Department Care Team (Late st Contact Info) Description 11/05/2023 Orders Only [facility] [place] [address] [place] [phone] [place], [place] [address] [place] [address] Social History Tobacco Use Types Packs/Day Years [...] Description 12/21/2024 9:00 AM EST Office Visit [facility] [place] [address] [place] [address] Jonathan Elizabeth DO [address] [facility] [address] [place], [place] [id number] documented as of this encounter Procedures Procedure [...] documented as of this encounter Care Teams Court Crier Relationship Specialty Start Date End Date Love [place] MD [address] [place] [address] PCP - General Family Medicine 01/25/23 04/12/24 Chey Bennett MD [address] [place] [address] PCP - General Family Medicine 04/13/24 Ashley Corcoran NP [address] [facility] [place] [address] Nurse Practitioner Family Medicine 01/25/23 04/19/24 Nory Taylor NP [address] [place] [address] Nurse Practitioner Family Medicine 04/20/24 Marcial Mcclure DO [address] [place], [place] [address] Referring Physician Neurology 06/18/24 documented as of this encounter
--- OUTSIDE RECORDS SUMMARY | 2024-12-04 09:25 | XMS_ITS | Encounter Summary ---
Author Organization [employer] Address [id number] [address] [place] [address] Care Team Providers Care Color Card Maker Name Role Phone No Pcp, No Pcp Primary Care Provider Unavailabl e Encounter Details Date Type Department Care Team (Late st Contact Info) Description 06/19/2022 [facility]phone [facility] [address] [place] [address] Johny Mooney CMA Social History Tobacco Use [...] documented as of this encounter Care Teams Color Card Maker Relationship Specialty Start Date End Date No Pcp, [place] [address] PCP - General Family Medicine 01/19/23 documented as of this encounter
--- OUTSIDE RECORDS SUMMARY | 2024-12-04 09:25 | XMS_ITS | Clinical Summary ---
Author Organization [email or web address] Address [facility]-[id number] [address] [place] [address] Care Team Providers Care Electro Optical Engineer Name Role Phone No Pcp, No Pcp [...] 12/19/2022 12/19/2021 Adult BMI Screening 08/09/2023 08/08/2022 Pap Smear 10/23/2023 Tobacco Screening 01/20/2024 01/19/2023 COVID-19 Vaccine (3 - 2024-2 6 season) 2024 05/25/2021, 05/04/2021 Influenza Vaccine 10/19/2024 12/10/2022 DTaP,Tdap and Td Vaccines (7 - Td or Tdap) 05/26/2025 05/27/2015, 06/10/2007, 01/24/2004, Additional history exists Medical Devices Not on file Insurance [facility] AETNA AETNA [facility] AENA ANTHEM Care Teams Electro Optical Engineer Relationship Specialty Start Date End Date No Pcp, [place] [address] PCP - General Family Medicine 01/19/23
--- OUTSIDE RECORDS SUMMARY | 2024-12-04 09:25 | XMS_ITS | Encounter Summary ---
Author Organization [employer] Address [facility] [place]-[id number] [address] [place] [address] Care Team Providers Care Meat Scrubber Name Role Phone No Pcp, No Pcp Primary Care Provider Unavailabl e Encounter Details Date Type Department Care Team (Late st Contact Info) Description 06/14/2022 [facility] [address] [place] [address] [place] [address] Johny Mooney CMA Social History Tobacco Use [...] documented as of this encounter Care Teams Meat Scrubber Relationship Specialty Start Date End Date No Pcp, [place] [address] PCP - General Family Medicine 01/19/23 documented as of this encounter
--- OUTSIDE RECORDS SUMMARY | 2024-12-04 09:26 | XMS_ITS | Clinical Summary ---
Author Organization [facility] Healthcare Address [address] [place] [address] Care Team Providers Care Water Meter Installer Name Role Phone Chey Bennett MD Primary Care Provider [phone] Milly Aguilar COMMERCIAL TRAILER TRUCK DRIVER Unavailable [phone] Marcial Mcclure DO Unavailable [phone] Allergies No known active allergies Medications folic acid (Folvite) 1 MG tablet 3 Active lamoTRIgine (LaMICtal) 100 MG tablet Take 100 mg by mouth in the morning and 100 mg before bedtime. 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 60 tablet 5 5 06/19/19 26 Active azithromycin (Zithromax) 500 MG tabletIndication s:Bacterial infection due to mycoplasma Day 1: Take 2 tablets PO onetime dose; Day 2,3,4: Take 1 tablet daily 5 tablet 5 Active norethindrone-et hinyl estradiol-iron (Lo Loestrin Fe) 1 MG-10 MCG / 10 MCG tabletIndication s:Menorrhagia with irregular cycle Take 1 tablet by mouth Daily Take 1 tablet by mouth daily 90 tablet 3 5 10/09/19 26 Active venlafaxine XR (Effexor XR) 37.5 MG 24 hr capsuleIndicatio ns:Anxiety, generalized Take 1 capsule (37.5 mg) by mouth Daily Do not crush or chew. 90 capsule 3 5 10/10/19 26 Active metFORMIN XR (Glucophage-XR) 500 MG 24 hr tabletIndication s:Insulin resistance Take 2 tablets (1,000 mg) by mouth in the evening. Take with meals Do not crush, chew, or split. 180 tablet 3 5 10/10/19 26 Active valACYclovir (Valtrex) 500 MG tabletIndication s:Herpes genitalis in women Take 1 tablet (500 mg) by mouth Daily 30 tablet 11 5 11/13/19 25 Active Problems Problem Noted Date Diagnosed Date PCOS (polycystic ovarian syndrome) 04/10/2024 Recurrent major depression in partial remission 09/28/2020 Juvenile myoclonic epilepsy, not intractable, with status epilepticus 09/28/2020 Anxiety and depression 03/16/2020 Resolved Problems Problem Noted Date Diagnosed Date Resolved Date Concussion with loss of cons ciousness of 30 minutes or less 10/30/2018 04/10/2024 Encounters Date Type Department Care Team Description 12/02/2024 3:00 PM EDT Ancillary Procedure [facility] [place] [address] [place] [address] [place] [address] Missed menses; Positive urine test ([facility]) 12/01/2024 Travel 11/27/2024 Orders Only [facility] [place] [address] Shanti Florez LPN Missed menses; Positive urine test ([facility]); Abnormal finding on ultrasound 11/27/2024 Clinisync Result Encounter [facility] External Department Unsolicited Alfredito Elizabeth DO 11/26/2024 Travel 11/20/2024 Travel 11/05/2024 External Result Encounter [facility] External Department Unsolicited Alfredito Elizabeth, 11/05/2024 Telephone [facility] [address] [place] [address] Lotus Philip MA 10/27/2024 Telephone [facility] [address] [place] [address] Sera Garza LPN 10/13/2024 8:30 AM EDT Office Visit [facility] [address] [place] [address] Jennifer Rendon, PA Menorrhagia with irregular cycle; Insulin resistance; Herpes genitalis in women 10/13/2024 Refill [facility] [address] [place] [address] Jennifer Rendon, PA Insulin resistance 10/13/2024 Refill [facility] [address] [place] [address] Alfredito Elizabeth, Anxiety, generalized 10/13/2024 Bamboo flowsheet [facility] [address] [place] [address] Jennifer Rendon PA 10/08/2024 Telephone [facility] [address] [place] [address] Jennifer Rendon PA 10/07/2024 Refill [facility] [address] [place] [address] Lotus Philip MA Vaginal lesion 10/07/2024 Telephone [facility] [address] [place] [address] Lotus Philip MA 10/06/2024 9:50 AM EDT Office Visit [facility] [address] [place] [address] Jennifer Rendon PA Vaginal discharge; STD exposure; Vaginal lesion 10/06/2024 Clinisync Result Encounter [facility] External Department Unsolicited Jennifer Rendon PA 10/06/2024 External Result Encounter [facility] External Department Unsolicited Jennifer Rendon PA 10/06/2024 Bamboo flowsheet [facility] [address] [place] [address] Jennifer Rendon PA 09/23/2024 Telephone [facility] [address] [place] [address] Aleksandra Barr MA 09/18/2024 Abstract [facility] [address] [place] [address] Yasmeen Samson NP 09/18/2024 Telephone [facility] [address] [place] [address] Yasmeen Samson NP 09/16/2024 9:50 AM EDT Office Visit [facility] [address] [place] [address] Yasmeen Samson NP STD exposure; Sexually transmitted disease exposure; BV (bacterial vaginosis) 09/16/2024 External Result Encounter [facility] External Department Unsolicited Yasmeen Samson NP 09/16/2024 Clinisync Result Encounter [facility] External Department Unsolicited Yasmeen Samson NP 09/16/2024 Bamboo flowsheet [facility] [address] [place] [address] Yasmeen Samson NP 09/10/2024 Travel from Last 3 Months Immunizations Immunization Administration [...] Cirrhosis Mother's Sister Cancer Paternal Grandfather Ashutosh Marge Lung cancer Paternal Grandfather Ashutosh Marge Dementia Paternal Grandmother Valvular heart disease Sister Relation Name Status Comments Father Alive Maternal Grandfather Maternal Grandmother Mother Alive Mother's Sister Paternal Grandfather Ashutosh Walls Paternal Grandmother Sister Social History Tobacco Use [...] Sign Reading Time Taken Comments Blood Pressure 102/60 10/13/2024 8:35 AM EDT Pulse 79 06/18/2024 3:28 PM EDT Temperature - - Respiratory Rate - - Oxygen Saturation 98% 06/18/2024 3:28 PM EDT Inhaled Oxygen Concentration - - Weight 65.5 kg (144 lb 8 oz) 10/13/2024 8:35 AM EDT Height 154.9 cm (5' 1 ) 04/13/2024 4:16 PM EST Body Mass Index 27.3 04/13/2024 4:16 PM EST Plan of Treatment Upcoming Encounters Date Type Department Care Team (Late st Contact Info) Description 12/21/2024 9:00 AM EST Office Visit [facility] [address] [place] [address] Alfredito Elizabeth DO [address] [place] [address] Health Maintenance Due Date Last Done Comments Influenza Vaccine (#1) 2024 12/10/2022 Procedures Procedure Name Priority Date/Time Associated Diagnosis Comments OB TRANSVAGINAL Routine 12/02/2024 4: 03 PM EDT Missed menses Positive urine test ([facility]) OB TRANSVAGINAL 11/27/2024 7: 52 AM EDT HCG, TOTAL, QN Routine 11/05/2024 4:23 PM EDT RECURRENT VAGINITIS (HTRX) Routine 10/06/2024 12:13 PM EDT RECURRENT VAGINITIS (HTRX) Routine 10/06/2024 12:11 PM EDT [facility] HERPES SIMPLEX VIRUS 1/2 DNA PCR Routine 10/06/2024 11:01 AM EDT HSV 1 AND 2 AB, IGG Routine 09/16/2024 1 1:05 AM EDT HBSAG SCREEN Routine 09/16/2024 11:05 AM EDT HIV AB/P24 AG WITH REFLEX Routine 09/16/2024 11:05 AM EDT RECURRENT VAGINITIS (HTRX) Routine 09/16/2024 10:33 AM EDT from Last 3 Months Results * US OB transvaginal (12/02/2024 4:03 [...] ELECTRONICALLY SIGNED BY: Julien Oscar MD us Alfredito CRAMER OB US PROCEDURES Final Resul t * US OB TRANSVAGINAL (11/27/2024 7:52 AM EDT) Anatomical Region Laterality Modality Other 11/27/2024 7:52 AM EDT Narrative 11/27/2024 7:55 [place] [address] Ultrasound Report Signed Patient: QUENTIN WALLS MR#: [id number] : 2000 Acct:[id number] Age/Sex: 24 / F ADM Date: 11/27/24 Loc: US Attending Dr: Alfredito Elizabeth D.O. Ordering Physician: Alfredito Elizabeth D.O. Date of Service: 11/27/24 Procedure(s): US OB transvaginal Accession Number(s): [id number] cc: Alfredito Elizabeth D.O.; MILLY AGUILAR NP [place] [address] Patient Name: QUENTIN WALLS MRN: [id number] date: 2000 Sex: F Assigned Patient Location: US Current Patient Location: US Accession/Order Number: [id number] Exam Date: 11/27/2024 07:02 Report Date: 11/27/2024 [...] estimated date of delivery is 07/09/2025. The supervisor calibration did not document cardiac activity. The supervisor calibration also raised question of the possibility of [...] Dunaway M.D. 11/27/2024 7:52 AM Dictation Location: [place] [address] Electronically authenticated by: [id number] Y Date: 11/27/2024 07:52 Dictated By: Elissa Dunaway M.D. Signed By: 11/27/24 0755 DD/ 075 TD/TT: Louver Mortiser Operator: Procedure Note Radiology, Radiologist, MD - 11/27/2024 [place] [address] Ultrasound Report Signed Patient: KALYANI WALLS#: [id number] : 2000Acct:[id number] Age/Sex: 24 / FADM Date: 11/27/24 Loc: US Attending Dr: Alfredito Elizabeth D.O. Ordering Physician: Alfredito Elizabeth D.O. Date of Service: 11/27/24 Procedure(s): US OB transvaginal Accession Number(s): [id number] cc: Alfredito Elizabeth D.O.; MILLY AGUILAR NP [place] [address] Patient Name: QUENTIN WALLS MRN: [id number] date: 2000 Sex: F Assigned Patient Location: US Current Patient Location: US Accession/Order Number: [id number] Exam Date: 11/27/2024 07:02 Report Date: 11/27/2024 [...] estimated date of delivery is 07/09/2025. The supervisor calibration did not document cardiac activity. The supervisor calibration also raised question of the possibility of [...] Dunaway M.D. 11/27/2024 7:52 AM Dictation Location: [place] [address] Electronically authenticated by: [id number] Y Date: 7:52 Dictated By: Elissa Dunaway M.D. Signed By:11/27/24 0755 DD/ 0752 TD/TT: Louver Mortiser Operator: us Alfredito Clara DO [facility] Final Result * hCG, quantitative, (11/05/2024 4:23 PM EDT) HCG,QUANTITATI VE 9,118.00 m[iU]/mL 11/05/2024 5:46 PM EDT [facility] Comment: Approximate Approximate hCG Gestational Age Range (mIU/ml) (weeks) 0.2-1 5-50 1-2 50-500 2-3 100-5,000 3-4 500-10,000 4-5 1,000-50,000 5-6 10,000-100,000 6-8 15,000-200,000 8-12 10,000-100,000 Other Topography unknown / Unknown 11/05/2024 4:23 PM EDT 11/05/2024 4:23 PM EDT us Alfredito Clara DO LAB BLOOD ORDERABLES Final Resul t [facility] [address] [place] [address], [facility] [address] [place] [address] * (ABNORMAL) RECURRENT VAGINITIS (HTRX) (10/06/2024 12:13 PM EDT) Only the most recent of3 resultswithin the time period is included. HERPES SIMPLEX VIRUS 1 0 23.000 - 31.899 ppm 10/07/2024 8:06 AM EDT [facility] HERPES SIMPLEX VIRUS 1 Not Detected 23.000 - 31.899 ppm 10/07/2024 8:06 AM EDT [facility] HERPES SIMPLEX VIRUS 2 17.77(A) 23.000 - 31.675 ppm 10/07/2024 8:06 AM EDT [facility] HERPES SIMPLEX VIRUS 2 Detected(A) 23.000 - 31.675 ppm 10/07/2024 8:06 AM EDT [facility] Tissue 10/06/2024 12:1 3 PM EDT 10/07/2024 2:19 AM EDT Jennifer CALLAWAY LAB BLOOD ORDERABLES Final Resul t Performing Organization Address City/State/[facility] Co de Phone Number [facility] [address] [place] [address] * (ABNORMAL) [facility] HERPES SIMPLEX VIRUS 1/2 DNA PCR (10/06/2024 11:01 AM EDT) HSV-1 DNA Negative Negative [facility] Comment: This test was developed and its performance characteristics determined by [facility]. It has not been cleared or approved by the Food and Drug Administration. HSV-2 DNA Positive(A) Negative TB Comment: This test was developed and its performance characteristics determined by [facility]. It has not been cleared or approved by the Food and Drug Administration. Performed at: [address] [id number] Inspection Supervisor: Stanton Solorzano MD, Phone: [phone] 10/06/2024 11:0 1 AM EDT 10/06/2024 11:02 AM EDT Narrative [facility] - 10/09/2024 7:09 AM EDT Jennifer CALLAWAY [facility] Final Result Performing Organization Address [facility] Co de Phone Number [facility] * HSV 1 AND 2 AB, IGG (09/16/2024 11:05 AM EDT) Pathologist [facility] HSV 1 IGG, TYPE SPEC Non Reactive Non Reactive [facility] Comment: Please note reference interval change HSV-1 IgG testing performed using the [employer] HSV-1 IgG assay. HSV 2 IGG, TYPE SPEC Non Reactive Non Reactive [facility] Comment: Please note reference interval change Current guidelines and recommendations do not recommend routine screening for HSV-2 in asymptomatic individuals, including those that are . The detection of HSV-2 IgG antibodies in a single sample indicates previous exposure to HSV-2 but does not give information as to the site of HSV infection or the timing of exposure. The predictive value of positive and negative results depends on the population's prevalence and the pretest likelihood of HSV-2. HSV-2 IgG testing performed using the [employer] HSV-2 IgG assay. 09/16/2024 11:0 5 AM EDT 09/16/2024 11:06 AM EDT Narrative [facility] - 09/17/2024 6:08 AM EDT Yasmeen Samson COMMERCIAL TRAILER TRUCK DRIVER LAB BLOOD ORDERABLES Final Re sult Performing Organization Address [facility] Co de Phone Number [facility] * HBSAG SCREEN (09/16/2024 11:05 AM EDT) Pathologist [facility] HBSAG SCREEN Negative Negative [facility] Comment: Performed at: [address] [id number] Inspection Supervisor: Dudley Del Rio PhD, Phone: [phone] 09/16/2024 11:0 5 AM EDT 09/16/2024 11:06 AM EDT Narrative [facility] - 09/17/2024 6:08 AM EDT Yasmeen Samson NP LAB BLOOD ORDERABLES Final Re sult Performing Organization Address City/[facility]/ZIP Co de Phone Number [facility] * HIV AB/P24 AG WITH REFLEX (09/16/2024 11:05 AM EDT) HIV AB/P24 AG SCREEN Non Reactive Non Reactive [facility] Comment: HIV-1/HIV-2 antibodies and HIV-1 p24 antigen were NOT detected. There is no laboratory evidence of HIV infection. HIV Negative Performed at: [address] [id number] Inspection Supervisor: Dudley Del Rio PhD, Phone: [phone] 09/16/2024 11:0 5 AM EDT 09/16/2024 11:06 AM EDT Narrative [facility] - 09/17/2024 6:08 AM EDT Yasmeen Samson NP LAB BLOOD ORDERABLES Final Re sult Performing Organization Address [facility] Co de Phone Number [facility] from Last 3 Months Insurance [facility] Care Teams Water Meter Installer Relationship Specialty Start Date End Date Chey Bennett MD PCP - General Family Medicine 04/13/24 Milly Aguilar, COMMERCIAL TRAILER TRUCK DRIVER [address] [place] [address] Nurse Practitioner Family Medicine 04/20/24 Marcial Mcclure DO [address] [facility] [address] [place] [address] Referring Physician Neurology 06/18/24
--- OUTSIDE RECORDS SUMMARY | 2024-12-04 09:26 | XMS_ITS | Encounter Summary ---
Author Organization [facility] Address [address] [place] [address] Care Team Providers Care Math Professor Name Role Phone Chey Bennett MD Primary Care Provider [phone] Nory Taylor DIRECTOR OF PROFESSIONAL SERVICES Unavailable [phone] Marcial Mcclure DO Unavailable [phone] Encounter Details Date Type Department Care Team (Late st Contact Info) Description 08/29/2024 Abstract [facility] Family Medicine [address] [place] [address] Nory Taylor NP [address] [place], [place] [id number] Social History Tobacco Use Types Packs/Day Years [...] EST Office Visit [facility] [address] [place] [address] Jonathan Elizabeth DO [address] [place] [address] documented as of this encounter Visit Diagnoses Not on filedocumented in this encounter Additional Health Concerns Assessment Noted Time PHQ-9 Depression Total Score: 0 04/13/19 4:00 PM EST documented as of this encounter Care Teams Math Professor Relationship Specialty Start Date End Date Chey Bennett MD PCP - General Family Medicine 04/13/24 Nory Taylor, DIRECTOR OF PROFESSIONAL SERVICES [address] [place] [address] Nurse Practitioner Family Medicine 04/20/24 Marcial Mcclure DO [address] [place] [address] Referring Physician Neurology 06/18/24 documented as of this encounter
--- OUTSIDE RECORDS SUMMARY | 2024-12-04 09:27 | XMS_ITS | CCD ---
Author Organization [facility] Care Team Providers Care Rotational Moulding Operator Name Role Phone Unavailable Primary Care Provider UnavailCarlota CHOWDARY, CARLA Attending Unavailable HOLLAND CHOWDARY, CARLA Referring Unavailable ASHLEY CORCORAN Attending Unavailable ASHLEY CORCORAN Attending Unavailable Unavailable Primary Care Provider UnavailTHAO Winston Attending Unavailable HOLLAND CHOWDARY, CARLA Referring Unavailable BEULAH Gibson Attending Provider [phone] Unavailable Primary Care Provider UnavailAshley Yuan NP Unavailable Love Madison MD Primary Care Provider NO FAMILY, PHYSICIAN Primary Care Provider Unava ilable TOO Manrique Emergency Provider NO FAMILY, PHYSICIAN Primary Care Provider Unava ilable Moreno [facility] Attending Provider Moreno [facility] Baldev HARPER Attending Provider Valdez Manrique PA-C Emergency Provider Jimmy Donis DO Emergency Provider Chey Bliss MD Primary Care Provider DAISY DE LEON Attending Unavailable DAISY DE LEON Referring Unavailable CARLA RICO Referring Unavailable HOLLAND CHOWDARY, CARLA Attending Unavailable DAISY DE LEON Attending Unavailable Nory Aguilar NP Unavailable NO FAMILY, PHYSICIAN Primary Care Provider Unava ilable Valdez Manrique PA-C Emergency Provider Nory Uribe Primary Care Provider Nory Uribe Attending Provider NO FAMILY, PHYSICIAN Primary Care Provider Unava ilable Jimmy Donis DO Emergency Provider [phone] Valdez Manrique PA-C Emergency Provider Brandon SERIALS LIBRARIAN-C, Nory Primary Care Provider Brandon SERIALS LIBRARIAN-C, Nory Attending Provider Gabi Mcclure DO Unavailable [phone] Chey Bliss MD Primary Care Provider Gabi Mcclure DO Unavailable [phone] Brandon SERIALS LIBRARIAN-C, Nory Primary Care Provider [phone] Gabi Mcclure DO Attending Provider Fanny OUTDOOR ILLUMINATING ENGINEER-ERADICATOR, Kathryn Montano Attending Unavailable Fanny OUTDOOR ILLUMINATING ENGINEER-ERADICATOR, Kathryn Montano Attending Unavailable Jonathan Elizabeth DO [...] Propensity to adverse reactions to drug (disorder) [facility] Repository Medications Current Medications Medication Drug Class(es) Dates Sig (Normalized) Sig (Original) acetaminophen 325 mg / HYDROcodone bitartrate 5 mg oral tablet (4 sources) Opioid Agonist Start: 10-08-2024 End: 10-13-2024 take 1 tablet by mouth every six hours for pain HYDROcodone-acetam inophen ([place]) 5-325 MG tablet Indications: Herpes genitalis in [...] (HCC) Please follow wean schedule provided via DailyBooth 168 tablet 02/07/2024 02/10/2024 Discontinued Start: 09-10-2023 [...] = total dose 150 mg twice daily tg-pv-uygd-FA-Ca carb-vit K (WOMEN'S MULTIVITAMIN) 18 mg-400 mcg- 500 mg-50 mcg tab (11 sources) Start: 10-27-2021 End: 02-01-2023 take 1 tablet by mouth once daily fd-hh-xuwq-FA-Ca carb-vit K (WOMEN'S MULTIVITAMIN) 18 mg-400 mcg- 500 mg-50 mcg tab Indications: Juvenile myoclonic epilepsy, not intractable, with status epilepticus (HCC) Take 1 tablet by mouth once daily. 365 tablet 0 10/27/2021 02/01/2023 Discontinued (Course of therapy completed) Start: 10-27-2021 take 1 tablet by macho th once daily ts-gs-kmpv-FA-Ca carb-vit K (WOMEN'S MULTIVITAMIN) 18 mg-400 mcg- 500 mg-50 mcg tab Indications: Juvenile myoclonic epilepsy, not intractable, with status epilepticus (HCC) Take 1 tablet by mouth once daily. 365 tablet 0 10/27/2021 Active Start: 10-27-2021 End: 10-27-2022 take 1 tablet by mouth once daily lh-uc-nfoj-FA-Ca carb-vit K (WOMEN'S MULTIVITAMIN) 18 mg-400 mcg- 500 mg-50 mcg tab Indications: Juvenile myoclonic epilepsy, not intractable, with status epilepticus (HCC) Take 1 tablet by mouth once daily. 365 tablet 0 10/27/2021 10/27/2022 Active Start: 12-01-2020 End: 10-27-2021 take 1 tablet by mouth once daily vn-dp-ibte-FA-Ca carb-vit K (WOMEN'S MULTIVITAMIN) 18 mg-400 mcg- 500 mg-50 mcg tab Indications: Juvenile myoclonic epilepsy, not intractable, with status epilepticus (HCC) Take 1 tablet by mouth once daily. 365 tablet 0 12/01/2020 10/27/2021 Discontinued Start: 12-01-2020 End: 12-01-2021 take 1 tablet by mouth once daily st-wn-oprd-FA-Ca carb-vit K (WOMEN'S MULTIVITAMIN) 18 mg-400 mcg- [...] (12 sources) Patient encounter status; Translations: [Other mcfp (current) drug therapy] 12-16-2023 Episodic Inflammatory diseases [...] Interpretation Reference Range Facility OB TRANSVAGIN[address]on [address] [place] [address] Ultrasound Report Signed Patient: QUENTIN BIRD MR#: [id number] : 2000 Acct:[id number] Age/Sex: 24 / F ADM Date: 11/27/24 Loc: US Attending Dr: Jonathan Elizabeth D.O. Ordering Physician: Jonathan Elizabeth D.O. Date of Service: 11/27/24 Procedure(s): US OB transvaginal Accession Number(s): [id number] cc: Jonathan Elizabeth D.O.; NORY AGUILAR NP [place] [id number] Patient Name: QUENTIN BIRD MRN: [id number] date: 2000 Sex: F Assigned Patient Location: US Current Patient Location: US Accession/Order Number: [id number] Exam Date: 11/27/2024 07:02 Report Date: 11/27/2024 [...] estimated date of delivery is 07/09/2025. The water jet operator did not document cardiac activity. The water jet operator also raised question of the possibility of [...] FOLLOW-UP WILL BE NEEDED. Impression dictated by: Elsisa Dunaway M.D. 11/27/2024 7:52 AM Dictation Location: [place] [address] Electronically authenticated by: [id number] Y Date: 11/27/2024 07:52 Dictated By: Elissa Dunaway M.D. Signed By: 11/27/24 0755 DD/ 0752 TD/TT: Sky Cap: [facility] Radiology, Radiologist, MD - 11/27/2024 [place] [address] Ultrasound Report Signed Patient: QUENTIN BIRD MR#: [id number] : 2000 Acct:[id number] Age/Sex: 24 / F ADM Date: 11/27/24 Loc: US Attending Dr: Jonathan Elizabeth D.O. Ordering Physician: Jonathan Elizabeth D.O. Date of Service: 11/27/24 Procedure(s): US OB transvaginal Accession Number(s): [id number] cc: Jonathan Elizabeth D.O.; NORY AGUILAR NP The [place] [address] Patient Name: QUENTIN BIRD MRN: [id number] date: 2000 Sex: F Assigned Patient Location: US Current Patient Location: US Accession/Order Number: [id number] Exam Date: 11/27/2024 07:02 Report Date: 11/27/2024 [...] estimated date of delivery is 07/09/2025. The water jet operator did not document cardiac activity. The water jet operator also raised question of the possibility of [...] Dunaway M.D. 11/27/2024 7:52 AM Dictation Location: [place] [address] Electronically authenticated by: [id number] Y Date: 11/27/2024 07:52 Dictated By: Elissa Dunaway M.D. Signed By: 11/27/24 0755 DD/ 075 TD/TT: Sky Cap: [facility] Radiology Study observation (narrative) [facility] US OB TRANSVAGINALOrdered By : Radiologist Radiology on 11-27-2024 [facility] [place] Work Phone: Choriogonadotropin.beta subu nit [Units/volume] in Serum or PlasmaOrdered By: Jonathan Elizabeth on 11-05-2024 HCG.beta subunit Qn 9118.00 m[IU]/mL [facility] Comment on above: Approximate Approxim ate hCG Gestational Age Range (mIU/ml) (weeks)0.2-1 5-50 1-2 50-500 2-3 100-5,000 3-4 500-10,000 4-5 1,000-50,000 5-6 10,000-100,000 6-8 15,000-200,000 8-12 10,000-100,000 HCG,Quantitativeon HCG,Quantitative 9118.00 m[iU]/mL Normal e [facility] Comment on above: Result Comment: Appr oximate Approximate hCG Gestational Age Range (mIU/ml) (weeks) 0.2-1 5-50 1-2 50-500 2-3 100-5,000 3-4 500-10,000 4-5 1,000-50,000 5-6 10,000-100,000 6-8 15,000-200,000 8-12 10,000-100,000 PERFORMED BY: [place] [address] PATHOLOGIST RN LABOR AND DELIVERY TAMAR VALIENTE M.D. Performed By: #### H CGQNT #### [facility] [address] [place] [address] Lamotrigine (Lamictal)on Lamotrigine (Lamictal) 3.9 Normal 2.0-20.0 e [facility] Comment on above: Result Comment: Dete ction Limit = 1.0 Performed at: [address] [id number] Document Design Specialist: Stanton Solorzano MD, Phone: [phone] Performed By: #### Z DONTAE, LAMOT ####[facility] , Zonisamideon 11-05-2024 Zonisamide 13.3 Normal 10.0-40.0 [facility] Comment on above: Result Comment: Dete ction Limit = 2.0 PERFORMED BY: [facility] [place] [address] PATHOLOGIST RN LABOR AND DELIVERY TAMAR VALIENTE M.D. Performed By: #### Z DONTAE, LAMOT ####[facility] , hCG, quantitative, on 11-05-2024 HCG,QUANTITATIVE 9118 m[iU]/mL [facility] Comment on above: Approximate Approxim ate hCG Gestational Age Range (mIU/ml) (weeks) 0.2-1 5-50 1-2 50-500 2-3 100-5,000 3-4 500-10,000 4-5 1,000-50,000 5-6 10,000-100,000 6-8 15,000-200,000 8-12 10,000-100,000 [facility] HERPES SIMPLEX VIRUS 1/2 DNA PCRon 10-09-2024 HSV-1 DNA Negative Negative [facility] Comment on above: This test was develo ped and its performance characteristics determined by [facility] [employer] [facility]. It has not been cleared or approved by the Food and Drug Administration. HSV-2 DNA Positive Abnormal Negative [facility] Comment on above: This test was develo ped and its performance characteristics determined by [facility]. It has not been cleared or approved by the Food and Drug Administration. Performed at: [address] [id number] Document Design Specialist: Stanton Solorzano MD, Phone: [phone] Interpretation and review of laboratory results Abnormal [facility] RECURRENT VAGINITIS (HTRX)on 10-07-2024 HERPES SIMPLEX VIRUS 1 0 NO [facility] HERPES SIMPLEX VIRUS 1 Not detected [facility] HERPES SIMPLEX VIRUS 2 17.77 Abnormal NO [facility] HERPES SIMPLEX VIRUS 2 Detected Abnormal NO [facility] Interpretation and review of laboratory results Abnormal [facility] RECURRENT VAGINITIS (HTRX)on 09-18-2024 ATOPOBIUM VAGINAE 16.81 Abnormal [facility] ATOPOBIUM VAGINAE Detected Abnormal [facility] BVAB 2,3 (BACTERIAL VAGINOSIS ASSOCIATED BACTERIA 2, 3); MOBILUNCUS SPP 27.699 Abnormal [facility] BVAB 2,3 (BACTERIAL VAGINOSIS ASSOCIATED BACTERIA 2, 3); MOBILUNCUS SPP Detected Abnormal [facility] CHA ALBICANS, PARAPSILOSIS, TROPICALIS 29.592 Abnormal [facility] CHA ALBICANS, PARAPSILOSIS, TROPICALIS Detected Abnormal [facility] Healthcare CHA GLABRATA 0 [facility] Healthcare CHA GLABRATA Not detected [facility] CHA KRUSEI 0 [facility] Healthcare CHA KRUSEI Not detected [facility] CHLAMYDIA TRACHOMATIS 0 [facility] S [facility] CHLAMYDIA TRACHOMATIS Not detected N S [facility] ERMB, C; MEFA 20.526 Abnormal [facility] Healthcare ERMB, C; MEFA Detected Abnormal [facility] Healthcare GARDNERELLA VAGINALIS 20.662 Abnormal [facility] S [facility] GARDNERELLA VAGINALIS Detected Abnormal [facility] Interpretation and review of laboratory results Abnormal [facility] MEGASPHAERA (TYPES 1, 2) 0 [facility] MEGASPHAERA (TYPES 1, 2) Not detected [facility] MYCOPLASMA GENITALIUM 25.331 Abnormal [facility] S [facility] MYCOPLASMA GENITALIUM Detected Abnormal [facility] S [facility] NEISSERIA GONORRHOEAE 0 [facility] S [facility] NEISSERIA GONORRHOEAE Not detected N [facility] TET B, TET M 18.96 Abnormal [facility] TET B, TET M Detected Abnormal [facility] TRICHOMONAS VAGINALIS 0 [facility] S [facility] TRICHOMONAS VAGINALIS Not detected N [facility] HIV AB/P24 AG WITH REFLEXon 09-17-2024 HIV AB/P24 AG SCREEN Non-Reactive Non Reactive [facility] Comment on above: HIV-1/HIV-2 antibodi es and HIV-1 p24 antigen were NOT detected. There is no laboratory evidence of HIV infection. HIV Negative Performed at: - [address] [id number] Document Design Specialist: Dudley Del Rio PhD, Phone: [phone] [facility] Trep Abon 09-08-2024 Treponema Total Ab 0.16 Normal [facility] Comment on above: Performed By: #### C D:[id number] #### [facility] [address] [place] [address] Treponema Total Ab Interp Negative Normal Negative [facility] Comment on above: Result Comment: No s erologic evidence of syphilis. No follow-up necessary unless clinically indicated (eg, early syphilis). Performed By: #### C D:[id number] #### [address] [address] Ambulatory Clinical Summaryo n 09-07-2024 Ambulatory Clinical [...] portal account set up, please contact the [employer] Patient Portal Help Line at . If [...] in female without diagnosis Dysuria Tests Performed/Pending 01451 AMB Urine Chemistry Analysis POC Your Care [...] signed by KRIS 09.07.2024 14:11 EDT Normal [facility] OR Trackon 09-07-2024 Specimens Received From [facility] Normal [facility] Comment on above: Performed By: #### O [facility] Tracking Order #### [facility] [address] [place] [address] Urgent Care Office/Clinic No roxanna 09-07-2024 Urgent Care Office/Clinic Note Chief Complaint pt states she would like std testing. denies symptoms History of Present Illness Patient is a 23-year-old female who presents today for STD testing. She states she denies any symptoms at all including urinary frequency, burning with urination, back pain, fever, nausea, vomiting. She was just seen at the [facility] within the last week and due to ongoing vaginal discharge was tested for trichomonas different forms of candidiasis, Gardnerella, gonorrhea, chlamydia and a couple other items. She came back negative for all of these items and is following up with her [facility] regarding this. She states that there was [...] and all of the items that the [facility] tested for and all were negative. Today [...] screening: [facility] [phone] Medical Decision Making Chronic conditions NOT treated [...] Urine Dipstick Clear 09/07/2024 13:46 EDT [place] Urine Dipstick 1.010 09/07/2024 13:46 EDT pH [...] Jasmin Phan PA-C 09/09/24 07:36 EDT Normal [facility] RECURRENT VAGINITIS (HTRX)on 08-27-2024 ATOPOBIUM VAGINAE 27.692 Abnormal [facility] ATOPOBIUM VAGINAE Detected Abnormal [facility] BVAB 2,3 (BACTERIAL VAGINOSIS ASSOCIATED BACTERIA 2, 3); MOBILUNCUS SPP 0 [facility] BVAB 2,3 (BACTERIAL VAGINOSIS ASSOCIATED BACTERIA 2, 3); MOBILUNCUS SPP Not detected [facility] CHA ALBICANS, PARAPSILOSIS, TROPICALIS 0 [facility] CHA ALBICANS, PARAPSILOSIS, TROPICALIS Not detected [facility] [...] Healthcare ECH echo transthoracicon ECH echo transthoracic [facility] [place] [address] Echocardiogram Signed Patient: Quentin Bird MR#: [id number] : 2000 Acct:[id number] Age/Sex: 23 / F ADM Date: 05/18/24 Loc: Room: Type: [facility] Attending Dr: Nory Aguilar SERIALS LIBRARIAN-C Ordering Provider: Nory Aguilar CNP Date of Service: 05/18/24/ ECH/ECH echo transthoracic: tachycardia, abnormal EKG Copies to: MD Nory Ordonez [facility] Patient Location: : 2000 Gender: Female (MM/DD/YYYY) [...] : Transcribed By: HEATHER Performed At: 05/18/24 7339 Signed By: Hannah Rajan MD 05/18/24 2227 Normal [facility] Alanine aminotransferase [En zymatic activity/volume] in Serum or PlasmaOrdered By: Nory Aguilar on 04-20-2024 ALT [Catalytic activity/Vol] Alanine aminotransferase [Enzymatic activity/volume] in Serum or Plasma 7-52 [facility] Albumin [Mass/volume] in Ser um or Plasma by Bromocresol green (BCG) dye binding methoOrdered By: Nory Aguilar on 04-20-2024 Albumin BCG dye [Mass/Vol] Albumin [Mass/volume] in Serum or Plasma by Bromocresol green (BCG) dye binding metho 3.5-5.7 [facility] Alkaline phosphatase [Enzyma tic activity/volume] in Serum or PlasmaOrdered By: Nory Aguilar on 04-20-2024 ALP [Catalytic activity/Vol] Alkaline phosphatase [Enzymatic activity/volume] in Serum or Plasma 34-104 [facility] Aspartate aminotransferase [ Enzymatic activity/volume] in Serum or PlasmaOrdered By: Nory Aguilar on 04-20-2024 AST [Catalytic activity/Vol] Aspartate aminotransferase [Enzymatic activity/volume] in Serum or Plasma 13-39 [facility] Basophils Auto (Bld) [#/Vol] Ordered By: Nory Aguilar on 04-20-2024 Basophils (Bld) [#/Vol] Automated basoph il count 0.0-0.2 [facility] Basophils/100 WBC Auto (Bld) Ordered By: Nory Aguilar on 04-20-2024 Basophils/100 WBC (Bld) Automated basophil % . [facility] Bilirubin.total [Mass/volume ] in Serum or PlasmaOrdered By: Nory Aguilar on 04-20-2024 Bilirubin [Mass/Vol] Bilirubin.total [Mass/volume] in Serum or Plasma 0.3-1.0 [facility] CBC W Auto Differential pane l (Bld)on 04-20-2024 Basophils (Bld) [#/Vol] 0 10*3/uL 0.0 - 0.2 10*3/uL [facility] Basophils/100 WBC Manual cnt (Syn fld) 0.2 % . [facility] Eosinophils (Bld) [#/Vol] 0.2 10*3/uL 0.0 - 0.45 10*3/uL [facility] Eosinophils/100 WBC Manual cnt (Syn fld) 2 % . [facility] Erythrocyte distribution width (RBC) [Ratio] 13.1 % 11.9 - 15.3 % [facility] Hematocrit (Bld) [Volume fraction] 40.7 % 34.0 - 46.4 % [facility] Hemoglobin (Bld) [Mass/Vol] 14 g/dL 11.8 - 15.4 g/dL [facility] Lymphocytes (Bld) [#/Vol] 1.5 10*3/uL 1.00 - 4.8 10*3/uL [facility] Lymphocytes/100 WBC Manual cnt (Syn fld) 18.3 % . [facility] MCH (RBC) [Entitic mass] 32.2 pg 24.7 - 34.3 pg [facility] MCHC (RBC) [Mass/Vol] 34.5 g/dL 32.0 - 35.0 g/dL [facility] MCV (RBC) [Entitic vol] 93.2 fL 80 - 100 fL [facility] Monocytes (Bld) [#/Vol] 0.6 10*3/uL 0.0 - 0.8 10*3/uL [facility] Monocytes+Macrophages/1 00 WBC Manual cnt (Syn fld) 7.7 % . [facility] Neutrophils (Bld) [#/Vol] 5.8 10*3/uL 1.8 - 7.7 10*3/uL [facility] Neutrophils/100 WBC Manual cnt (Syn fld) 71.8 % . [facility] NRBC 0 /100{WBC} 0 - 0.5 /100{WBC} [facility] Platelet mean volume (Bld) [Entitic vol] 7.9 fL 6.3 - 10.7 fL [facility] Platelets (Bld) [#/Vol] 311 10*3/uL 150 - 450 10*3/uL [facility] RBC LM.HPF (Urine sed) [#/Area] 4.36 10*6/uL 3.60 - 5.00 10*6/uL [facility] WBC (Bld) [#/Vol] 8.1 10*3/uL 3.8 - 11.6 10*3/uL [facility] WBC LM.HPF (Urine sed) [#/Area] 8.1 10*3/uL 3.8 - 11.6 10*3/uL [facility] Calcium [Mass/volume] in Ser um or PlasmaOrdered By: Nory Aguilar on 04-20-2024 Calcium [Mass/Vol] Calcium [Mass/volume ] in Serum or Plasma 8.6-10.3 [facility] Carbon dioxide, total [Moles /volume] in Serum or PlasmaOrdered By: Nory Aguilar on 04-20-2024 CO2 [Moles/Vol] Carbon dioxide, tota l [Moles/volume] in Serum or Plasma 21.0-31.0 [facility] Chloride [Moles/volume] in S benedicto or PlasmaOrdered By: Nory Aguilar on 04-20-2024 Chloride [Moles/Vol] Chloride [Moles/volume] in Serum or Plasma 98-107 [facility] Cholesterol [Mass/volume] in Serum or PlasmaOrdered By: Nory Aguilar on 04-20-2024 Cholesterol [Mass/Vol] Cholesterol [Mass/volume] in Serum or Plasma 140-200 [facility] Comment on above: Chol less than 200 m g/dl low riskChol 201-239 mg/dl borderline riskChol 240 mg/dl and greater high risk Cholesterol in HDL [Mass/vol ume] in Serum or PlasmaOrdered By: Nory Aguilar on 04-20-2024 Cholesterol in HDL [Mass/Vol] Serum or plasma high density lipoprotein (HDL) cholesterol measurement 23-92 [facility] Comment on above: HDL CHOL ATP-III CLA SSIFICATION Cardiovascular RiskHDL > or equal to 60 mg/dL LOWHDL < 40 mg/dL HIGH Cholesterol in LDL Calc [Mas s/Vol]Ordered By: Nory Aguilar on 04-20-2024 Cholesterol in LDL [Mass/Vol] Cholesterol in LDL [Mass/volume] in Serum or Plasma by calculation 0-100 [facility] Comment on above: LDL ATP III CLASSIFI CATIONLDL less than 100 mg/dL OptimalLDL 100-129 mg/dL Near or above optimalLDL 130-159 mg/dL Borderline highLDL 160-189 mg/dL HighLDL greater than 189 mg/dL Very high Cholesterol in VLDL Calc [Ma ss/Vol]Ordered By: Nory Aguilar on 04-20-2024 Cholesterol in VLDL [Mass/Vol] Cholesterol in VLDL [Mass/volume] in Serum or Plasma by calculation [facility] Complete Blood Count Auto Di ffon 04-20-2024 Basophils (Bld) [#/Vol] 0.0 10*3/uL Normal 0.0-0.2 [facility] Comment on above: Result Comment: PERF ORMED BY: [facility] [address] [place] [address] PATHOLOGIST RN LABOR AND DELIVERY KIRBY BARRIENTOS M.D. Performed By: #### L IPID, TSH3, CMP, T4F, CBC ####[address] Basophils/100 WBC (Bld) 0.2 % Normal . [facility] Comment on above: Performed By: #### L IPID, TSH3, CMP, T4F, CBC ####[address] Eosinophils (Bld) [#/Vol] 0.2 10*3/uL Normal 0.0-0.45 [facility] Comment on above: Performed By: #### L IPID, TSH3, CMP, T4F, CBC ####[address] Eosinophils/100 WBC (Bld) 2.0 % Normal . [facility] Comment on above: Performed By: #### L IPID, TSH3, CMP, T4F, CBC ####[address] Erythrocyte distribution width (RBC) [Ratio] 13.1 % Normal 11.9-15.3 [facility] Comment on above: Performed By: #### L IPID, TSH3, CMP, T4F, CBC ####[address] Hematocrit (Bld) [Volume fraction] 40.7 % Normal 34.0-46.4 [facility] Comment on above: Performed By: #### L IPID, TSH3, CMP, T4F, CBC ####[address] Hemoglobin (Bld) [Mass/Vol] 14.0 g/dL Normal 11.8-15.4 [facility] Comment on above: Performed By: #### L IPID, TSH3, CMP, T4F, CBC ####[address] Lymphocytes (Bld) [#/Vol] 1.5 10*3/uL Normal 1.00-4.8 [facility] Comment on above: Performed By: #### L IPID, TSH3, CMP, T4F, CBC ####[address] Lymphocytes/100 WBC (Bld) 18.3 % Normal . [facility] Comment on above: Performed By: #### L IPID, TSH3, CMP, T4F, CBC ####[address] MCH (RBC) [Entitic mass] 32.2 pg Normal 24.7-34.3 [facility] Comment on above: Performed By: #### L IPID, TSH3, CMP, T4F, CBC ####[address] MCV (RBC) [Entitic vol] 93.2 fL Normal 80-100 T he [facility] Comment on above: Performed By: #### L IPID, TSH3, CMP, T4F, CBC ####[address] Mean Corpuscular HGB Conc 34.5 g/dL Normal 32.0-35.0 [facility] Comment on above: Performed By: #### L IPID, TSH3, CMP, T4F, CBC ####[address] Monocytes (Bld) [#/Vol] 0.6 10*3/uL Normal 0.0-0.8 [facility] Comment on above: Performed By: #### L IPID, TSH3, CMP, T4F, CBC ####[address] Monocytes/100 WBC (Bld) 7.7 % Normal . T he [facility] Comment on above: Performed By: #### L IPID, TSH3, CMP, T4F, CBC ####[address] Neutrophils (Bld) [#/Vol] 5.8 10*3/uL Normal 1.8-7.7 [facility] Comment on above: Performed By: #### L IPID, TSH3, CMP, T4F, CBC ####[address] Neutrophils/100 WBC (Bld) 71.8 % Normal . [facility] Comment on above: Performed By: #### L IPID, TSH3, CMP, T4F, CBC ####[address] NRBC% 0.0 /100{WBC} Normal 0-0.5 [facility] Comment on above: Performed By: #### L IPID, TSH3, CMP, T4F, CBC ####[address] Platelet mean volume (Bld) [Entitic vol] 7.9 fL Normal 6.3-10.7 [facility] Comment on above: Performed By: #### L IPID, TSH3, CMP, T4F, CBC ####[address] Platelets (Bld) [#/Vol] 311 10*3/uL Normal 150-450 [facility] Comment on above: Performed By: #### L IPID, TSH3, CMP, T4F, CBC ####[address] RBC (Bld) [#/Vol] 4.36 10*6/uL Normal 3.60-5.00 [facility] Comment on above: Performed By: #### L IPID, TSH3, CMP, T4F, CBC ####[address] WBC (Bld) [#/Vol] 8.1 10*3/uL Normal 3.8-11.6 [facility] Comment on above: Performed By: #### L IPID, TSH3, CMP, T4F, CBC ####[address] Comprehensive Metabolic Pane bridger 04-20-2024 Albumin [Mass/Vol] 4.9 g/dL Normal 3.5-5.7 [facility] Comment on above: Performed By: #### L IPID, TSH3, CMP, T4F, CBC ####[address] Albumin/Globulin [Mass ratio] 2.0 {ratio} Normal [facility] Comment on above: Performed By: #### L IPID, TSH3, CMP, T4F, CBC ####[address] ALP [Catalytic activity/Vol] 95 U/L Normal 34-104 [facility] Comment on above: Performed By: #### L IPID, TSH3, CMP, T4F, CBC ####[address] ALT [Catalytic activity/Vol] 9 U/L Normal 7-52 [facility] Comment on above: Performed By: #### L IPID, TSH3, CMP, T4F, CBC ####[address] Anion gap [Moles/Vol] 12.5 mmol/L Normal 6.0-15.0 e [facility] Comment on above: Performed By: #### L IPID, TSH3, CMP, T4F, CBC ####[address] AST [Catalytic activity/Vol] 16 U/L Normal 13-39 [facility] Comment on above: Performed By: #### L IPID, TSH3, CMP, T4F, CBC ####[address] Bilirubin [Mass/Vol] 0.4 mg/dL Normal 0.3-1.0 [facility] Comment on above: Performed By: #### L IPID, TSH3, CMP, T4F, CBC ####[address] Calcium [Mass/Vol] 9.7 mg/dL Normal 8.6-10.3 [facility] Comment on above: Performed By: #### L IPID, TSH3, CMP, T4F, CBC ####[address] Chloride [Moles/Vol] 107 mmol/L Normal 98-107 [facility] Comment on above: Performed By: #### L IPID, TSH3, CMP, T4F, CBC ####[address] CO2 [Moles/Vol] 22.8 mmol/L Normal 21.0-31.0 [facility] Comment on above: Performed By: #### L IPID, TSH3, CMP, T4F, CBC ####[address] Creatinine [Mass/Vol] 0.90 mg/dL Normal 0.60-1.20 [facility] Comment on above: Performed By: #### L IPID, TSH3, CMP, T4F, CBC ####[address] GFR/1.73 sq M.predicted MDRD (S/P/Bld) [Vol rate/Area] mL/min/{1.73_m2} Normal [facility] Comment on above: Performed By: #### L IPID, TSH3, CMP, T4F, CBC ####[address] Globulin (S) [Mass/Vol] 2.5 g/dL Normal T he [facility] Comment on above: Performed By: #### L IPID, TSH3, CMP, T4F, CBC ####[id number] [place] [address] [facility] Glucose [Mass/Vol] 88 mg/dL Normal 70-100 [facility] Comment on above: Result Comment: [place] Glucose Reference Range is dependent on time and content of last meal. Glucose of more than 200 mg/dL in a nonstressed, ambulatory subject supports the diagnosis of Diabetes Mellitus. ADA recommended reference range Performed By: #### L IPID, TSH3, CMP, T4F, CBC ####[id number] [place] [address] [facility] Potassium [Moles/Vol] 4.3 mmol/L Normal 3.5-5.1 [facility] Comment on above: Performed By: #### L IPID, TSH3, CMP, T4F, CBC ####[address] [address] [facility] Protein [Mass/Vol] 7.4 g/dL Normal 6.4-8.9 [facility] Comment on above: Performed By: #### L IPID, TSH3, CMP, T4F, CBC ####[address] [address] [facility] Sodium [Moles/Vol] 138 mmol/L Normal 136-145 [facility] Comment on above: Performed By: #### L IPID, TSH3, CMP, T4F, CBC ####[address] [address] [place] Urea nitrogen [Mass/Vol] 7 mg/dL Normal 7-25 [facility] Comment on above: Performed By: #### L IPID, TSH3, CMP, T4F, CBC ####[address] [address] [place] Creatinine [Mass/volume] in Serum or PlasmaOrdered By: Nory Aguilar on 04-20-2024 Creatinine [Mass/Vol] Creatinine [Mass/volume] in Serum or Plasma 0.60-1.20 [facility] ECG 12 lead ECGon 04-20-2024 ECG 12 lead ECG [facility] [address] [place] [address] Electrocardiograph Report Signed Patient: Quentin Bird MR#: [id number] : 2000 Acct:[id number] Age/Sex: 23 / F ADM Date: 04/20/24 Loc: Room: Type: [facility] Attending Dr: Nory Aguilar [employer]-C Ordering Provider: Nory Aguilar CNP Date of [...] infarct Abnormal ECG Confirmed by Hannah Rajan ([id number]) on 04/20/2024 6:37:52 PM Referred By: Electronically Signed By: Hannah Rajan Transcribed By: MUS Signed By Hannah Rajan MD 5 1837 Normal [facility] Eosinophils Auto (Bld) [#/Vo l]Ordered By: Nory Aguilar on 04-20-2024 Eosinophils (Bld) [#/Vol] Automated eosinophil count 0.0-0.45 [facility] Eosinophils/100 WBC Auto (Bl d)Ordered By: Nory Aguilar on 04-20-2024 Eosinophils/100 WBC (Bld) Automated eosinophil % . [facility] Erythrocyte distribution wid th Auto (RBC) [Ratio]Ordered By: Nory Aguilar on 04-20-2024 Erythrocyte distribution width (RBC) [Ratio] Erythrocyte distribution width [Ratio] by Automated count 11.9-15.3 [facility] Free T4 (Free Thyroxine)on 0 04-20-2024 Free T4 [Mass/Vol] 0.75 ng/dL Normal 0.61-1.12 [facility] Comment on above: Performed By: #### L IPID, TSH3, CMP, T4F, CBC ####[facility] [address] [place] [address] [place] Globulin Calc (S) [Mass/Vol] Ordered By: Nory Aguilar on 04-20-2024 Globulin (S) [Mass/Vol] Serum globulin measurement by calculation (mass/volume) [facility] Glucose [Mass/volume] in Ser um or PlasmaOrdered By: Nory Aguilar on 04-20-2024 Glucose [Mass/Vol] Glucose [Mass/volume ] in Serum or Plasma 70-100 [facility] Comment on above: ADA recommended refe rence rangeRandom Glucose Reference Range is dependent on time and content of last meal. Glucose of more than 200 mg/dL in a nonstressed, ambulatory subject supports the diagnosis of Diabetes Mellitus. Hematocrit Auto (Bld) [Volum e fraction]Ordered By: Nory Aguilar on 04-20-2024 Hematocrit (Bld) [Volume fraction] Hematocrit [Volume Fraction] of Blood by Automated count 34.0-46.4 [facility] Hemoglobin [Mass/volume] in BloodOrdered By: Nory Aguilar on 04-20-2024 Hemoglobin (Bld) [Mass/Vol] Hemoglobin [Mass/volume] in Blood 11.8-15.4 [facility] Leukocytes [#/volume] correc chandan for nucleated erythrocytes in Blood by Automated counOrdered By: Nory Aguilar on 04-20-2024 WBC corrected for nucl RBC Auto (Bld) [#/Vol] Leukocytes [#/volume] corrected for nucleated erythrocytes in Blood by Automated coun 3.8-11.6 [facility] Lipid Panelon 04-20-2024 Cholesterol [Mass/Vol] 155 mg/dL Normal 140-200 Th [facility] Comment on above: Result Comment: Chol less than 200 mg/dl low risk Chol 201-239 mg/dl borderline risk Chol 240 mg/dl and greater high risk Performed By: #### L IPID, TSH3, CMP, T4F, CBC ####[facility] [address] [place] [address] [facility] Cholesterol in HDL [Mass/Vol] 62 mg/dL Normal 23-92 [facility] Comment on above: Result Comment: HDL CHOL ATP-III CLASSIFICATION Cardiovascular Risk HDL > or equal to 60 mg/dL LOW HDL < 40 mg/dL HIGH Performed By: #### L IPID, TSH3, CMP, T4F, CBC ####[facility] [place] [address] [facility] Cholesterol.total/Nayeli sterol in HDL [Mass ratio] 2.5 {ratio} Normal <5.0 [facility] Comment on above: Performed By: #### L IPID, TSH3, CMP, T4F, CBC ####[address] [place] [id number] [facility] LDL Cholesterol,Calculated 71 mg/dL Normal 0-100 [facility] Comment on above: Result Comment: LDL ATP III CLASSIFICATION LDL less than 100 mg/dL Optimal LDL 100-129 mg/dL Near or above optimal LDL 130-159 mg/dL Borderline high LDL 160-189 mg/dL High LDL greater than 189 mg/dL Very high Performed By: #### L IPID, TSH3, CMP, T4F, CBC ####[address] [place] [id number] [facility] Triglyceride w/Reflex 112 mg/dL Normal 0-149 [facility] Comment on above: Result Comment: TRIG ATP III CLASSIFICATION TRIG less than 150 mg/dL Normal TRIG 150-199 mg/dL Borderline high TRIG 200-500 mg/dL High TRIG greater than 500 mg/dL Very high Standard traceable to the Center for Disease Conrtrol and Prevention (CDC) test method. Performed By: #### L IPID, TSH3, CMP, T4F, CBC ####[address] [place] [id number] [facility] VLDL CHOLESTEROL 22 mg/dL Normal [facility] Comment on above: Performed By: #### L IPID, TSH3, CMP, T4F, CBC ####[address] [place] [id number] [facility] Lymphocytes Auto (Bld) [#/Vo l]Ordered By: Nory Aguilar on 04-20-2024 Lymphocytes (Bld) [#/Vol] Lymphocytes [#/volume] in Blood by Automated count 1.00-4.8 [facility] Lymphocytes/100 WBC Auto (Bl d)Ordered By: Nory Aguilar on 04-20-2024 Lymphocytes/100 WBC (Bld) Lymphocytes/100 leukocytes in Blood by Automated count . [facility] MCH Auto (RBC) [Entitic mass ]Ordered By: Nory Aguilar on 04-20-2024 MCH (RBC) [Entitic mass] MCH [Entitic mass] by Automated count 24.7-34.3 [facility] MCHC Auto (RBC) [Mass/Vol]Or dered By: Nory Aguilar on 04-20-2024 MCHC (RBC) [Mass/Vol] MCHC [Mass/volume] by Automated count 32.0-35.0 [facility] MCV Auto (RBC) [Entitic vol] Ordered By: Nory Aguilar on 04-20-2024 MCV (RBC) [Entitic vol] MCV [Entitic vol ume] by Automated count 80-100 [facility] Monocytes Auto (Bld) [#/Vol] Ordered By: Nory Aguilar on 04-20-2024 Monocytes (Bld) [#/Vol] Automated blood monocyte count 0.0-0.8 [facility] Monocytes/100 WBC Auto (Bld) Ordered By: Nory Aguilar on 04-20-2024 Monocytes/100 WBC (Bld) Automated monocyte % . [facility] Neutrophils Auto (Bld) [#/Vo l]Ordered By: Nory Aguilar on 04-20-2024 Neutrophils (Bld) [#/Vol] Neutrophils [#/volume] in Blood by Automated count 1.8-7.7 [facility] Neutrophils/100 WBC Auto (Bl d)Ordered By: Nory Aguilar on 04-20-2024 Neutrophils/100 WBC (Bld) Automated neutrophil % . [facility] No Panel InformationOrdered By: Nory Aguilar on 04-20-2024 Estimated GFR (CKD-EPI) > 60.0 mL/Min [facility] Creatinine Clearance (Chem N/A [facility] Nucleated erythrocytes [Pres ence] in Blood by Automated countOrdered By: Nory Aguilar on 04-20-2024 Nucleated RBC Auto Ql (Bld) Nucleated erythrocytes [Presence] in Blood by Automated count 0-0.5 [facility] Platelet mean volume Auto (B ld) [Entitic vol]Ordered By: Nory Aguilar on 04-20-2024 Platelet mean volume (Bld) [Entitic vol] Platelet mean volume [Entitic volume] in Blood by Automated count 6.3-10.7 [facility] Platelets Auto (Bld) [#/Vol] Ordered By: Nory Aguilar on 04-20-2024 Platelets (Bld) [#/Vol] Platelets [#/vol ume] in Blood by Automated count 150-450 [facility] Potassium [Moles/volume] in Serum or PlasmaOrdered By: Nory Aguilar on 04-20-2024 Potassium [Moles/Vol] Potassium [Moles/volume] in Serum or Plasma 3.5-5.1 [facility] Protein [Mass/volume] in Ser um or PlasmaOrdered By: Nory Aguilar on 04-20-2024 Protein [Mass/Vol] Protein [Mass/volume ] in Serum or Plasma 6.4-8.9 [facility] RBC Auto (Bld) [#/Vol]Ordere d By: Nory Aguilar on 04-20-2024 RBC (Bld) [#/Vol] Erythrocytes [#/volume] in Blood by Automated count 3.60-5.00 [facility] Serum or plasma albumin/glob ulin mass ratioOrdered By: Nory Aguilar on 04-20-2024 Albumin/Globulin [Mass ratio] Serum or plasma albumin/globulin mass ratio [facility] Serum or plasma anion gap de terminationOrdered By: Nory Aguilar on 04-20-2024 Anion gap [Moles/Vol] Serum or plasma an ion gap determination 6.0-15.0 [facility] Serum or plasma total choles terol/high density lipoprotein (HDL) cholesterol mass ratOrdered By: Nory Aguilar on 04-20-2024 Cholesterol.total/Nayeli sterol in HDL [Mass ratio] Serum or plasma total cholesterol/high density lipoprotein (HDL) cholesterol mass rat <5.0 [facility] Sodium [Moles/volume] in Ser um or PlasmaOrdered By: Nory Aguilar on 04-20-2024 Sodium [Moles/Vol] Sodium [Moles/volume ] in Serum or Plasma 136-145 [facility] Thyroid Stimulating Hormoneo n 04-20-2024 TSH Qn 0.63 m[IU]/L Normal 0.45-5.33 [facility] Comment on above: Result Comment: PERF ORMED BY: [facility] [address] [place] [address] PATHOLOGIST RN LABOR AND DELIVERY KIRBY BARRIENTOS M.D. Performed By: #### L IPID, TSH3, CMP, T4F, CBC ####[facility] [address] [place] [address] [facility] Thyrotropin [Units/volume] i n Serum or PlasmaOrdered By: Nory Aguilar on 04-20-2024 TSH Qn Thyrotropin [Units/volume] in Serum or Plasma 0.45-5.33 [facility] Thyroxine (T4) free [Mass/vo lume] in Serum or PlasmaOrdered By: Nory Aguilar on 04-20-2024 Free T4 [Mass/Vol] Thyroxine (T4) free [Mass/volume] in Serum or Plasma 0.61-1.12 [facility] Triglyceride [Mass/volume] i n Serum or PlasmaOrdered By: Nory Aguilar on 04-20-2024 Triglyceride [Mass/Vol] Triglyceride [Mass/volume] in Serum or Plasma 0-149 [facility] Comment on above: TRIG ATP III CLASSIF ICATIONTRIG less than 150 mg/dL NormalTRIG 150-199 mg/dL Borderline highTRIG 200-500 mg/dL High TRIG greater than 500 mg/dL Very highStandard traceable to the Center for Disease Conrtrol and Prevention (CDC) test method. Urea nitrogen [Mass/volume] in Serum or PlasmaOrdered By: Nory Aguilar on 04-20-2024 Urea nitrogen [Mass/Vol] Urea nitrogen [Mass/volume] in Serum or Plasma 7-25 [facility] WBC Auto (Bld) [#/Vol]Ordere d By: Nory Aguilar on 04-20-2024 WBC (Bld) [#/Vol] Leukocytes [#/volume ] in Blood by Automated count 3.8-11.6 [facility] Alanine aminotransferase [En zymatic activity/volume] in Serum or PlasmaOrdered By: Valdez Manrique on 03-16-2024 ALT [Catalytic activity/Vol] Alanine aminotransferase [Enzymatic activity/volume] in Serum or Plasma 7-52 [facility] Albumin [Mass/volume] in Ser um or Plasma by Bromocresol green (BCG) dye binding methoOrdered By: Valdez Manrique on 03-16-2024 Albumin BCG dye [Mass/Vol] Albumin [Mass/volume] in Serum or Plasma by Bromocresol green (BCG) dye binding metho 3.5-5.7 [facility] Alkaline phosphatase [Enzyma tic activity/volume] in Serum or PlasmaOrdered By: Valdez Manrique on 03-16-2024 ALP [Catalytic activity/Vol] Alkaline phosphatase [Enzymatic activity/volume] in Serum or Plasma 34-104 [facility] Appearance of UrineOrdered B y: Valdez Manrique on 03-16-2024 Appearance (U) Urine appearance Clear [facility] Aspartate aminotransferase [ Enzymatic activity/volume] in Serum or PlasmaOrdered By: Valdez Manrique on 03-16-2024 AST [Catalytic activity/Vol] Aspartate aminotransferase [Enzymatic activity/volume] in Serum or Plasma 13-39 [facility] Bacteria [Presence] in Urine by AutomatedOrdered By: Valdez Manrique on 03-16-2024 Bacteria Auto Ql (U) Bacteria [Presence] in Urine by Automated None Seen [facility] Basophils Auto (Bld) [#/Vol] Ordered By: Valdez Manrique on 03-16-2024 Basophils (Bld) [#/Vol] Automated basoph il count 0.0-0.2 [facility] Basophils/100 WBC Auto (Bld) Ordered By: Valdez Manrique 03-16-2024 Basophils/100 WBC (Bld) Automated basophil % . [facility] Bilirubin Test strip Ql (U)O rdered By: Valdez Manrique on 03-16-2024 Bilirubin Ql (U) Bilirubin.total [Presence] in Urine by Test strip Negative [facility] Bilirubin.total [Mass/volume ] in Serum or PlasmaOrdered By: Valdez Manrique on 03-16-2024 Bilirubin [Mass/Vol] Bilirubin.total [Mass/volume] in Serum or Plasma 0.3-1.0 [facility] COVID Cepheid NegativeOrdere d By: Valdez Manrique on 03-16-2024 SARS-CoV-2 (COVID-19) Ab IA Ql COVID Cepheid Negative [facility] Comment on above: This is a [...] or Cepheid Disclaimer revoked sooner. PERFORMED BY: [place] [address] PATHOLOGIST RN LABOR AND DELIVERY KIRBY BARRIENTOS M.D. Normal [facility] Comment on above: Performed By: #### C OVID19 FLU RSV, CEPHEID NEG #### [address] [address] [facility] Calcium [Mass/volume] in Ser um or PlasmaOrdered By: Valdez Manrique on 03-16-2024 Calcium [Mass/Vol] Calcium [Mass/volume ] in Serum or Plasma 8.6-10.3 [facility] Carbon dioxide, total [Moles /volume] in Serum or PlasmaOrdered By: Valdez Manrique on 03-16-2024 CO2 [Moles/Vol] Carbon dioxide, tota l [Moles/volume] in Serum or Plasma 21.0-31.0 [facility] Cepheid COVID PCR Negativeon 03-16-2024 SARS-CoV-2 (COVID-19) RNA LINK+probe Ql (Unsp spec) Negative Normal Negative [facility] Comment on above: Result Comment: This is a duplicate Cepheid Xpert Xpress CoV-2/Flu/RSV Plus RNA by RT-PCR result to be used for statistical tracking purpose only. PERFORMED BY: [address] [address] PATHOLOGIST RN LABOR AND DELIVERY KIRBY BARRIENTOS M.D. Performed By: #### C OVID19 FLU RSV, CEPHEID NEG #### [address] [address] [place] Chloride [Moles/volume] in S benedicto or PlasmaOrdered By: Valdez Manrique on 03-16-2024 Chloride [Moles/Vol] Chloride [Moles/volume] in Serum or Plasma 98-107 [facility] Color Auto (U)Ordered By: Maikel Manrique on 03-16-2024 Color (U) Color of Urine by Auto Yellow [facility] Complete Blood Count Auto Di ffon 03-16-2024 Basophils (Bld) [#/Vol] 0.0 10*3/uL Normal 0.0-0.2 [facility] Comment on above: Result Comment: PERF ORMED BY: [facility] [place] [address] PATHOLOGIST RN LABOR AND DELIVERY KIRBY BARRIENTOS M.D. Performed By: #### C MP, LIPASE, CBC ####[address] Basophils/100 WBC (Bld) 0.1 % Normal . [facility] Comment on above: Performed By: #### C MP, LIPASE, CBC ####[address] Eosinophils (Bld) [#/Vol] 0.0 10*3/uL Normal 0.0-0.45 [facility] Comment on above: Performed By: #### C MP, LIPASE, CBC ####[address] Eosinophils/100 WBC (Bld) 0.0 % Normal . [facility] Comment on above: Performed By: #### C MP, LIPASE, CBC ####[address] Erythrocyte distribution width (RBC) [Ratio] 13.5 % Normal 11.9-15.3 [facility] Comment on above: Performed By: #### C MP, LIPASE, CBC ####[address] Hematocrit (Bld) [Volume fraction] 41.8 % Normal 34.0-46.4 [facility] Comment on above: Performed By: #### C MP, LIPASE, CBC ####[address] Hemoglobin (Bld) [Mass/Vol] 14.4 g/dL Normal 11.8-15.4 [facility] Comment on above: Performed By: #### C MP, LIPASE, CBC ####[address] [address] [place] Lymphocytes (Bld) [#/Vol] 0.2 10*3/uL Low 1.00-4.8 [facility] Comment on above: Performed By: #### C MP, LIPASE, CBC ####[address] Lymphocytes/100 WBC (Bld) 1.1 % Normal . [facility] Comment on above: Performed By: #### C MP, LIPASE, CBC ####[address] MCH (RBC) [Entitic mass] 32.1 pg Normal 24.7-34.3 [facility] Comment on above: Performed By: #### C MP, LIPASE, CBC ####[address] MCV (RBC) [Entitic vol] 92.9 fL Normal 80-100 [facility] Comment on above: Performed By: #### C MP, LIPASE, CBC ####[address] Mean Corpuscular HGB Conc 34.5 g/dL Normal 32.0-35.0 [facility] Comment on above: Performed By: #### C MP, LIPASE, CBC ####[address] Monocytes (Bld) [#/Vol] 0.6 10*3/uL Normal 0.0-0.8 [facility] Comment on above: Performed By: #### C MP, LIPASE, CBC ####[address] Monocytes/100 WBC (Bld) 21.34 % High 0.00-20.00 [facility] Comment on above: Result Comment: For adults in ED, MDW > 20.0 may be associated with a higher risk of sepsis during the first 12 hrs of hospital admission Performed By: #### C MP, LIPASE, CBC ####[address] Monocytes/100 WBC (Bld) 3.4 % Normal . T he [facility] Comment on above: Performed By: #### C MP, LIPASE, CBC ####[address] Neutrophils (Bld) [#/Vol] 15.6 10*3/uL High 1.8-7.7 [facility] Comment on above: Performed By: #### C MP, LIPASE, CBC ####[address] Neutrophils/100 WBC (Bld) 95.4 % Normal . [facility] Comment on above: Performed By: #### C MP, LIPASE, CBC ####[address] NRBC% 0.0 /100{WBC} Normal 0-0.5 [facility] Comment on above: Performed By: #### C MP, LIPASE, CBC ####[address] Platelet mean volume (Bld) [Entitic vol] 8.3 fL Normal 6.3-10.7 [facility] Comment on above: Performed By: #### C MP, LIPASE, CBC ####[address] Platelets (Bld) [#/Vol] 265 10*3/uL Normal 150-450 [facility] Comment on above: Performed By: #### C MP, LIPASE, CBC ####[address] RBC (Bld) [#/Vol] 4.50 10*6/uL Normal 3.60-5.00 [facility] Comment on above: Performed By: #### C MP, LIPASE, CBC ####[address] WBC (Bld) [#/Vol] 16.3 10*3/uL High 3.8-11.6 [facility] Comment on above: Performed By: #### C MP, LIPASE, CBC ####[address] [place] [address] [facility] Comprehensive Metabolic Pane bridger 03-16-2024 Albumin [Mass/Vol] 5.0 g/dL Normal 3.5-5.7 [facility] Comment on above: Performed By: #### C MP, LIPASE, CBC ####[place] [id number] [facility] Albumin/Globulin [Mass ratio] 1.8 {ratio} Normal [facility] Comment on above: Performed By: #### C MP, LIPASE, CBC ####[place] [id number] [facility] ALP [Catalytic activity/Vol] 76 U/L Normal 34-104 [facility] Comment on above: Performed By: #### C MP, LIPASE, CBC ####[place] [id number] [facility] ALT [Catalytic activity/Vol] 12 U/L Normal 7-52 [facility] Comment on above: Performed By: #### C MP, LIPASE, CBC ####[place] [id number] [facility] Anion gap [Moles/Vol] 11.5 mmol/L Normal 6.0-15.0 [facility] Comment on above: Performed By: #### C MP, LIPASE, CBC ####[place] [id number] [facility] AST [Catalytic activity/Vol] 17 U/L Normal 13-39 [facility] Comment on above: Performed By: #### C MP, LIPASE, CBC ####[place] [id number] [facility] Bilirubin [Mass/Vol] 0.5 mg/dL Normal 0.3-1.0 [facility] Comment on above: Performed By: #### C MP, LIPASE, CBC ####[place] [id number] [facility] Calcium [Mass/Vol] 9.1 mg/dL Normal 8.6-10.3 [facility] Comment on above: Performed By: #### C MP, LIPASE, CBC ####[place] [id number] [address] Chloride [Moles/Vol] 107 mmol/L Normal 98-107 [facility] Comment on above: Performed By: #### C MP, LIPASE, CBC ####[place] [id number] [facility] CO2 [Moles/Vol] 21.1 mmol/L Normal 21.0-31.0 [facility] Comment on above: Performed By: #### C MP, LIPASE, CBC ####[address] Creatinine [Mass/Vol] 0.93 mg/dL Normal 0.60-1.20 [facility] Comment on above: Performed By: #### C MP, LIPASE, CBC ####[address] Creatinine Clr Calc Pharmacy 84.29 Normal [facility] Comment on above: Performed By: #### C MP, LIPASE, CBC ####[address] GFR/1.73 sq M.predicted MDRD (S/P/Bld) [Vol rate/Area] mL/min/{1.73_m2} Normal [facility] Comment on above: Performed By: #### C MP, LIPASE, CBC ####[address] Globulin (S) [Mass/Vol] 2.8 g/dL Normal T [facility] Comment on above: Performed By: #### C MP, LIPASE, CBC ####[address] Glucose [Mass/Vol] 122 mg/dL High 70-100 [facility] Comment on above: Result Comment: [facility] Glucose Reference Range is dependent on time and content of last meal. Glucose of more than 200 mg/dL in a nonstressed, ambulatory subject supports the diagnosis of Diabetes Mellitus. ADA recommended reference range Performed By: #### C MP, LIPASE, CBC ####[place] [address] [place] Potassium [Moles/Vol] 3.6 mmol/L Normal 3.5-5.1 [facility] Comment on above: Performed By: #### C MP, LIPASE, CBC ####[facility] Protein [Mass/Vol] 7.8 g/dL Normal 6.4-8.9 [facility] Comment on above: Performed By: #### C MP, LIPASE, CBC ####[facility] Sodium [Moles/Vol] 136 mmol/L Normal 136-145 [facility] Comment on above: Performed By: #### C MP, LIPASE, CBC ####[place] [id number] [address] Urea nitrogen [Mass/Vol] 15 mg/dL Normal 7-25 [facility] Comment on above: Performed By: #### C MP, LIPASE, CBC ####[place] [id number] [address] Creatinine [Mass/volume] in Serum or PlasmaOrdered By: Valdez Manrique on 03-16-2024 Creatinine [Mass/Vol] Creatinine [Mass/volume] in Serum or Plasma 0.60-1.20 [facility] Dipstick and Microscopicon 0 03-16-2024 Appearance (U) Clear Normal Clear [facility] Comment on above: Order Comment: Name Collection Type:: Clean-Voided Midstream Performed By: #### A DDONUAPLUS CG #### [facility] [address] Bacteria,Urine Rare Normal None Seen [facility] Comment on above: Order Comment: Name Collection Type:: Clean-Voided Midstream Performed By: #### A DDONUAPLUS CG #### [facility] [address] Bilirubin,Urine Negative Normal Negative [facility] Comment on above: Order Comment: Name Collection Type:: Clean-Voided Midstream Performed By: #### A DDONUAPLUS CG #### [address] Color (U) Yellow Normal Yellow [facility] Comment on above: Order Comment: Name Collection Type:: Clean-Voided Midstream Performed By: #### A DDONUAPLUS, UHCG #### [address] Glucose Ql (U) Normal Normal Normal [facility] Comment on above: Order Comment: Name Collection Type:: Clean-Voided Midstream Performed By: #### A DDONUAPLUS, UHCG #### [place] [address] [place] Hyaline Casts,Urine None Normal 0-8 [facility] Comment on above: Order Comment: Name Collection Type:: Clean-Voided Midstream Performed By: #### A DDONUAPLUS, UHCG #### [address] Ketones Ql (U) 2+ High Negative [facility] Comment on above: Order Comment: Name Collection Type:: Clean-Voided Midstream Performed By: #### A DDONUAPLUS, UHCG #### [place] [address] [place] Leukocyte esterase Test strip Ql (U) 1+ High Negative [facility] Comment on above: Order Comment: Name Collection Type:: Clean-Voided Midstream Performed By: #### A DDONUAPLUS, UHCG #### [place] [address] [place] Mucus,Urine 1+ Critically abnormal [facility] Comment on above: Order Comment: Name Collection Type:: Clean-Voided Midstream Performed By: #### A DDONUAPLUS, UHCG #### [place] [address] [place] Nitrite,Urine Negative Normal Negative [facility] Comment on above: Order Comment: Name Collection Type:: Clean-Voided Midstream Performed By: #### A DDONUAPLUS, UHCG #### [address] Occult Blood,Urine Negative Normal Negative [facility] Comment on above: Order Comment: Name Collection Type:: Clean-Voided Midstream Performed By: #### A DDONUAPLUS, UHCG #### [address] pH (U) 6.0 [pH] Normal 5.0-9.0 [facility] Comment on above: Order Comment: Name Collection Type:: Clean-Voided Midstream Performed By: #### A DDONUAPLUS, UHCG #### [address] Protein (U) [Mass/Vol] 20 mg/dL High Negative [facility] Comment on above: Order Comment: Name Collection Type:: Clean-Voided Midstream Performed By: #### A DDONUAPLUS, UHCG #### [address] RBC,Urine 1 [HPF] Normal 0-4 [facility] Comment on above: Order Comment: Name Collection Type:: Clean-Voided Midstream Performed By: #### A DDONUAPLUS, UHCG #### [address] [place],Urine 1.030 Normal 1.001-1.030 [facility] Comment on above: Order Comment: Name Collection Type:: Clean-Voided Midstream Performed By: #### A DDONUAPLUS, UHCG #### [address] Squamous Epithelial Cell,Urine 10 [HPF] High 0-2 [facility] Comment on above: Order Comment: Name Collection Type:: Clean-Voided Midstream Performed By: #### A DDONUAPLUS, UHCG #### [address] Urobilinogen,Urine Normal Normal Normal [facility] Comment on above: Order Comment: Name Collection Type:: Clean-Voided Midstream Performed By: #### A DDONUAPLUS, UHCG #### [address] [address] [place] WBC,Urine 1 [HPF] Normal 0-4 [facility] Comment on above: Order Comment: Name Collection Type:: Clean-Voided Midstream Performed By: #### A DDONUAPLUS, UHCG #### [facility] [address] Eosinophils Auto (Bld) [#/Vo l]Ordered By: Valdez Manrique on 03-16-2024 Eosinophils (Bld) [#/Vol] Automated eosinophil count 0.0-0.45 [facility] Eosinophils/100 WBC Auto (Bl d)Ordered By: Valdez Manrique on 03-16-2024 Eosinophils/100 WBC (Bld) Automated eosinophil % . [facility] Epithelial cells.squamous [# /area] in Urine sediment by Automated countOrdered By: Valdez Manrique on 03-16-2024 Epithelial cells.squamous Auto (Urine sed) [#/Area] Epithelial cells.squamous [#/area] in Urine sediment by Automated count High 0-2 [facility] Erythrocyte distribution wid th Auto (RBC) [Ratio]Ordered By: Valdez Manrique on 03-16-2024 Erythrocyte distribution width (RBC) [Ratio] Erythrocyte distribution width [Ratio] by Automated count 11.9-15.3 [facility] Erythrocytes [#/area] in Uri ne sediment by Automated countOrdered By: Valdez Manrique on 03-16-2024 RBC Auto (Urine sed) [#/Area] Erythrocytes [#/area] in Urine sediment by Automated count 0-4 [facility] Globulin Calc (S) [Mass/Vol] Ordered By: Valdez Manrique on 03-16-2024 Globulin (S) [Mass/Vol] Serum globulin measurement by calculation (mass/volume) [facility] Glucose [Mass/volume] in Ser um or PlasmaOrdered By: Valdez Manrique on 03-16-2024 Glucose [Mass/Vol] Glucose [Mass/volume ] in Serum or Plasma High 70-100 [facility] Comment on above: ADA recommended refe [...] [Mass/volume] in Urine by Test strip Normal [facility] HCG ( test) IA.rapi d Ql (U)Ordered By: ITZEL MORAN on 03-16-2024 HCG ( test) Ql (U) Urine human chorionic gonadotropin (hCG) detection by immunoassay [facility] HCG,Urineon 03-16-2024 Beta HCG ( test) Ql (U) Negative Normal [facility] Comment on above: Order Comment: Name Collection Type:: Clean-Voided Midstream Result Comment: PERF ORMED BY: [facility] [address] [place] [address] PATHOLOGIST RN LABOR AND DELIVERY KIRBY BARRIENTOS M.D. Performed By: #### A DDONUARYAN, [facility] #### [facility] [address] Hematocrit Auto (Bld) [Volum e fraction]Ordered By: Valdez Manrique on 03-16-2024 Hematocrit (Bld) [Volume fraction] Hematocrit [Volume Fraction] of Blood by Automated count 34.0-46.4 [facility] Hemoglobin Test strip Ql (U) Ordered By: Valdez Manrique on 03-16-2024 Hemoglobin Ql (U) Hemoglobin [Presence ] in Urine by Test strip Negative [facility] Hemoglobin [Mass/volume] in BloodOrdered By: Valdez Manrique on 03-16-2024 Hemoglobin (Bld) [Mass/Vol] Hemoglobin [Mass/volume] in Blood 11.8-15.4 [facility] Hyaline casts [#/area] in Ur ine sediment by Automated countOrdered By: Valdez Manrique on 03-16-2024 Hyaline casts Auto (Urine sed) [#/Area] Hyaline casts [#/area] in Urine sediment by Automated count 0-8 [facility] Ketones Test strip Ql (U)Ord ered By: Valdez Manrique on 03-16-2024 Ketones Ql (U) Ketones [Presence] i n Urine by Test strip High Negative [facility] Leukocyte esterase [Presence ] in Urine by Test stripOrdered By: Valdez Manrique on 03-16-2024 Leukocyte esterase Test strip Ql (U) Leukocyte esterase [Presence] in Urine by Test strip High Negative [facility] Leukocytes [#/area] in Urine sediment by Automated countOrdered By: Valdez Manrique on 03-16-2024 WBC Auto (Urine sed) [#/Area] Leukocytes [#/area] in Urine sediment by Automated count 0-4 [facility] Leukocytes [#/volume] correc chandan for nucleated erythrocytes in Blood by Automated counOrdered By: Valdez Manrique on 03-16-2024 WBC corrected for nucl RBC Auto (Bld) [#/Vol] Leukocytes [#/volume] corrected for nucleated erythrocytes in Blood by Automated coun High 3.8-11.6 [facility] Lipaseon 03-16-2024 Lipase [Catalytic activity/Vol] 20.0 U/L Normal 11.0-82.0 [facility] Comment on above: Result Comment: PERF ORMED BY: [facility] [address] [facility] [facility] [id number] PATHOLOGIST RN LABOR AND DELIVERY KIRBY BARRIENTOS M.D. Performed By: #### C MP, LIPASE, CBC ####[facility]1111 [place] [id number] [facility] Lipase [Enzymatic activity/v olume] in Serum or PlasmaOrdered By: Valdez Manrique on 03-16-2024 Lipase [Catalytic activity/Vol] Lipase [Enzymatic activity/volume] in Serum or Plasma 11.0-82.0 [facility] Lymphocytes Auto (Bld) [#/Vo l]Ordered By: Valdez Manrique on 03-16-2024 Lymphocytes (Bld) [#/Vol] Lymphocytes [#/volume] in Blood by Automated count Low 1.00-4.8 [facility] Lymphocytes/100 WBC Auto (Bl d)Ordered By: Valdez Manrique on 03-16-2024 Lymphocytes/100 WBC (Bld) Lymphocytes/100 leukocytes in Blood by Automated count . [facility] MCH Auto (RBC) [Entitic mass ]Ordered By: Valdez Manrique on 03-16-2024 MCH (RBC) [Entitic mass] MCH [Entitic mass] by Automated count 24.7-34.3 [facility] MCHC Auto (RBC) [Mass/Vol]Or dered By: Valdez Manrique on 03-16-2024 MCHC (RBC) [Mass/Vol] MCHC [Mass/volume] by Automated count 32.0-35.0 [facility] MCV Auto (RBC) [Entitic vol] Ordered By: Valdez Manrique on 03-16-2024 MCV (RBC) [Entitic vol] MCV [Entitic vol ume] by Automated count 80-100 [facility] Monocyte distribution width [Entitic volume] in Blood by AutomatedOrdered By: Valdez Manrique on 03-16-2024 Monocyte distribution width Auto (Bld) [Entitic vol] Monocyte distribution width [Entitic volume] in Blood by Automated High 0.00-20.00 [facility] Comment on above: For adults in ED, MD W > 20.0 may be associated with a higher risk of sepsis during the first 12 hrs of hospital admission Monocytes Auto (Bld) [#/Vol] Ordered By: Valdez Manrique on 03-16-2024 Monocytes (Bld) [#/Vol] Automated blood monocyte count 0.0-0.8 [facility] Monocytes/100 WBC Auto (Bld) Ordered By: Valdez Manrique on 03-16-2024 Monocytes/100 WBC (Bld) Automated monocyte % . [facility] Mucus [Presence] in Urine by AutomatedOrdered By: Valdez Manrique on 03-16-2024 Mucus Auto Ql (U) Mucus [Presence] in Urine by Automated Abnormal [facility] Neutrophils Auto (Bld) [#/Vo l]Ordered By: Valdez Manrique on 03-16-2024 Neutrophils (Bld) [#/Vol] Neutrophils [#/volume] in Blood by Automated count High 1.8-7.7 [facility] Neutrophils/100 WBC Auto (Bl d)Ordered By: Valdez Manrique on 03-16-2024 Neutrophils/100 WBC (Bld) Automated neutrophil % . [facility] Nitrite Test strip Ql (U)Ord ered By: Valdez Manrique on 03-16-2024 Nitrite Ql (U) Nitrite [Presence] i n Urine by Test strip Negative [facility] No Panel InformationOrdered By: Valdez Manrique on 03-16-2024 Estimated GFR (CKD-EPI) > 60.0 mL/Min [facility] Pharmacy Creatinine Clearance (Chem 84.29 [facility] Nucleated erythrocytes [Pres ence] in Blood by Automated countOrdered By: Valdez Manrique on 03-16-2024 Nucleated RBC Auto Ql (Bld) Nucleated erythrocytes [Presence] in Blood by Automated count 0-0.5 [facility] Platelet mean volume Auto (B ld) [Entitic vol]Ordered By: Valdez Manrique on 03-16-2024 Platelet mean volume (Bld) [Entitic vol] Platelet mean volume [Entitic volume] in Blood by Automated count 6.3-10.7 [facility] Platelets Auto (Bld) [#/Vol] Ordered By: Valdez Manrique on 03-16-2024 Platelets (Bld) [#/Vol] Platelets [#/vol ume] in Blood by Automated count 150-450 [facility] Potassium [Moles/volume] in Serum or PlasmaOrdered By: Valdez Manrique on 03-16-2024 Potassium [Moles/Vol] Potassium [Moles/volume] in Serum or Plasma 3.5-5.1 [facility] Protein Test strip (U) [Mass /Vol]Ordered By: Valdez Manrique on 03-16-2024 Protein (U) [Mass/Vol] Protein [Mass/vol ume] in Urine by Test strip High Negative [facility] Protein [Mass/volume] in Ser um or PlasmaOrdered By: Valdez Manrique on 03-16-2024 Protein [Mass/Vol] Protein [Mass/volume ] in Serum or Plasma 6.4-8.9 [facility] RBC Auto (Bld) [#/Vol]Ordere d By: Valdez Manrique on 03-16-2024 RBC (Bld) [#/Vol] Erythrocytes [#/volume] in Blood by Automated count 3.60-5.00 [facility] Respiratory specimen influen za A virus, influenza B virus, respiratory syncytical virOrdered By: Valdez Manrique on 03-16-2024 SARS-CoV-2 (COVID-19) RNA LINK+probe Ql (Unsp spec) Respiratory specimen influenza A virus, influenza B virus, respiratory syncytical vir [facility] SARS-CoV-2 (COVID-19) RNA LINK+probe Ql (Unsp spec) Respiratory specimen influenza A virus, influenza B virus, respiratory syncytical vir [facility] Serum or plasma albumin/glob ulin mass ratioOrdered By: Valdez Manrique on 03-16-2024 Albumin/Globulin [Mass ratio] Serum or plasma albumin/globulin mass ratio [facility] Serum or plasma anion gap de terminationOrdered By: Valdez Manrique on 03-16-2024 Anion gap [Moles/Vol] Serum or plasma an ion gap determination 6.0-15.0 [facility] Sodium [Moles/volume] in Ser um or PlasmaOrdered By: Valdez Manrique on 03-16-2024 Sodium [Moles/Vol] Sodium [Moles/volume ] in Serum or Plasma 136-145 [facility] Specific gravity Test strip (U) [Rel density]Ordered By: Valdez Manrique on 03-16-2024 Specific gravity (U) [Rel density] Specific gravity of Urine by Test strip 1.001-1.030 [facility] Urea nitrogen [Mass/volume] in Serum or PlasmaOrdered By: Valdez Manrique on 03-16-2024 Urea nitrogen [Mass/Vol] Urea nitrogen [Mass/volume] in Serum or Plasma 7-25 [facility] Urobilinogen Test strip (U) [Mass/Vol]Ordered By: Valdez Manrique on 03-16-2024 Urobilinogen (U) [Mass/Vol] Urobilinogen [Mass/volume] in Urine by Test strip Normal [facility] WBC Auto (Bld) [#/Vol]Ordere d By: Valdez Manrique on 03-16-2024 WBC (Bld) [#/Vol] Leukocytes [#/volume ] in Blood by Automated count High 3.8-11.6 [facility] pH Test strip (U)Ordered By: Valdez Manrique on 03-16-2024 pH (U) pH of Urine by Test strip 5.0-9.0 [facility] Appearance of UrineOrdered B y: Jimmy Donis on 03-04-2024 Appearance (U) Urine appearance Clear [facility] Bacteria [Presence] in Urine by AutomatedOrdered By: Jimmy Donis on 03-04-2024 Bacteria Auto Ql (U) Bacteria [Presence] in Urine by Automated None Seen [facility] Basic Metabolic Panelon 02-18 Anion gap [Moles/Vol] 19.7 mmol/L High 6.0-15.0 [facility] Comment on above: Performed By: #### B MP, CBC ####[address] [address] [facility] Calcium [Mass/Vol] 8.9 mg/dL Normal 8.6-10.3 [facility] Comment on above: Performed By: #### B MP, CBC ####[place] [id number] [facility] Chloride [Moles/Vol] 107 mmol/L Normal 98-107 [facility] Comment on above: Performed By: #### B MP, CBC ####[place] [id number] [facility] CO2 [Moles/Vol] 16.0 mmol/L Low 21.0-31.0 [facility] Comment on above: Performed By: #### B MP, CBC ####[place] [id number] [facility] Creatinine [Mass/Vol] 0.95 mg/dL Normal 0.60-1.20 [facility] Comment on above: Performed By: #### B MP, CBC ####[place] [id number] [place] Creatinine Clr Calc Pharmacy 80.64 Normal [facility] Comment on above: Result Comment: PERF ORMED BY: [facility] [address] [facility] [place] [id number] PATHOLOGIST RN LABOR AND DELIVERY KIRBY BARRIENTOS M.D. Performed By: #### B MP, CBC ####[place] [id number] [place] GFR/1.73 sq M.predicted MDRD (S/P/Bld) [Vol rate/Area] mL/min/{1.73_m2} Normal [facility] Comment on above: Performed By: #### B MP, CBC ####[address] Glucose [Mass/Vol] 129 mg/dL High 70-100 [facility] Comment on above: Result Comment: [place] Glucose Reference Range is dependent on time and content of last meal. Glucose of more than 200 mg/dL in a nonstressed, ambulatory subject supports the diagnosis of Diabetes Mellitus. ADA recommended reference range Performed By: #### B MP, CBC ####[address] Potassium [Moles/Vol] 3.7 mmol/L Normal 3.5-5.1 [facility] Comment on above: Performed By: #### B MP, CBC ####[address] Sodium [Moles/Vol] 139 mmol/L Normal 136-145 [facility] Comment on above: Performed By: #### B MP, CBC ####[address] Urea nitrogen [Mass/Vol] 9 mg/dL Normal 7-25 [facility] Comment on above: Performed By: #### B MP, CBC ####[address] [address] Basophils Auto (Bld) [#/Vol] Ordered By: Jimmy Donis on 03-04-2024 Basophils (Bld) [#/Vol] Automated basoph il count 0.0-0.2 [facility] Basophils/100 WBC Auto (Bld) Ordered By: Jimmy Donis on 03-04-2024 Basophils/100 WBC (Bld) Automated basophil % . [facility] Bilirubin Test strip Ql (U)O rdered By: Jimmy Donis on 03-04-2024 Bilirubin Ql (U) Bilirubin.total [Presence] in Urine by Test strip Negative [facility] CT head/brain wo conon 03-04 CT head/brain wo con [facility] [address] [place] [address] CT Scan Report Signed Patient: Quentin Bird MR#: [id number] : 2000 Acct:[id number] Age/Sex: 23 / F ADM Date: 03/04/24 Loc: ER Room: Type: [facility] ER Attending Dr: Copies to: Jimmy [...] Tomas Graham M.D.03/04/2024 10:41 AM Dictation Location: [place] [address] Transcribed By: [facility] 03/04/24 1041 Dictated By: Tomas Graham MD 03/04/24 1039 Signed By: 03/04/24 1041 Normal [facility] Calcium [Mass/volume] in Ser um or PlasmaOrdered By: Jimmy Donis on 03-04-2024 Calcium [Mass/Vol] Calcium [Mass/volume ] in Serum or Plasma 8.6-10.3 [facility] Carbon dioxide, total [Moles /volume] in Serum or PlasmaOrdered By: Jimmy Donis on 03-04-2024 CO2 [Moles/Vol] Carbon dioxide, tota l [Moles/volume] in Serum or Plasma Low 21.0-31.0 [facility] Chloride [Moles/volume] in S benedicto or PlasmaOrdered By: Jimmy Donis on 03-04-2024 Chloride [Moles/Vol] Chloride [Moles/volume] in Serum or Plasma 98-107 [facility] Color Auto (U)Ordered By: Yan Donis on 03-04-2024 Color (U) Color of Urine by Auto Yellow [facility] Complete Blood Count Auto Di ffon 03-04-2024 Basophils (Bld) [#/Vol] 0.1 10*3/uL Normal 0.0-0.2 [facility] Comment on above: Result Comment: PERF ORMED BY: [facility] [address] [place] [address] PATHOLOGIST RN LABOR AND DELIVERY KIRBY BARRIENTOS M.D. Performed By: #### B MP, CBC ####[address] Basophils/100 WBC (Bld) 0.7 % Normal . [facility] Comment on above: Performed By: #### B MP, CBC ####[address] Eosinophils (Bld) [#/Vol] 0.1 10*3/uL Normal 0.0-0.45 [facility] Comment on above: Performed By: #### B MP, CBC ####[address] Eosinophils/100 WBC (Bld) 1.1 % Normal . [facility] Comment on above: Performed By: #### B MP, CBC ####[address] Erythrocyte distribution width (RBC) [Ratio] 13.5 % Normal 11.9-15.3 [facility] Comment on above: Performed By: #### B MP, CBC ####[address] Hematocrit (Bld) [Volume fraction] 41.0 % Normal 34.0-46.4 [facility] Comment on above: Performed By: #### B MP, CBC ####[place] [id number] [facility] Hemoglobin (Bld) [Mass/Vol] 13.7 g/dL Normal 11.8-15.4 [facility] Comment on above: Performed By: #### B MP, CBC ####[address] Lymphocytes (Bld) [#/Vol] 2.3 10*3/uL Normal 1.00-4.8 [facility] Comment on above: Performed By: #### B MP, CBC ####[address] Lymphocytes/100 WBC (Bld) 28.5 % Normal . [facility] Comment on above: Performed By: #### B MP, CBC ####[address] MCH (RBC) [Entitic mass] 31.6 pg Normal 24.7-34.3 [facility] Comment on above: Performed By: #### B MP, CBC ####[address] MCV (RBC) [Entitic vol] 94.5 fL Normal 80-100 [facility] Comment on above: Performed By: #### B MP, CBC ####[address] Mean Corpuscular HGB Conc 33.4 g/dL Normal 32.0-35.0 [facility] Comment on above: Performed By: #### B MP, CBC ####[address] Monocytes (Bld) [#/Vol] 0.7 10*3/uL Normal 0.0-0.8 [facility] Comment on above: Performed By: #### B MP, CBC ####[address] Monocytes/100 WBC (Bld) 15.77 % Normal 0.00-20.00 [facility] Comment on above: Performed By: #### B MP, CBC ####[address] Monocytes/100 WBC (Bld) 8.2 % Normal . [facility] Comment on above: Performed By: #### B MP, CBC ####[place] [address] Neutrophils (Bld) [#/Vol] 5.0 10*3/uL Normal 1.8-7.7 [facility] Comment on above: Performed By: #### B MP, CBC ####[address] Neutrophils/100 WBC (Bld) 61.5 % Normal . [facility] Comment on above: Performed By: #### B MP, CBC ####[address] NRBC% 0.1 /100{WBC} Normal 0-0.5 [facility] Comment on above: Performed By: #### B MP, CBC ####[address] Platelet mean volume (Bld) [Entitic vol] 8.0 fL Normal 6.3-10.7 [facility] Comment on above: Performed By: #### B MP, CBC ####[address] Platelets (Bld) [#/Vol] 300 10*3/uL Normal 150-450 [facility] Comment on above: Performed By: #### B MP, CBC ####[address] RBC (Bld) [#/Vol] 4.34 10*6/uL Normal 3.60-5.00 [facility] Comment on above: Performed By: #### B MP, CBC ####[address] WBC (Bld) [#/Vol] 8.1 10*3/uL Normal 3.8-11.6 [facility] Comment on above: Performed By: #### B MP, CBC ####[address] Creatinine [Mass/volume] in Serum or PlasmaOrdered By: Jimmy Donis on 03-04-2024 Creatinine [Mass/Vol] Creatinine [Mass/volume] in Serum or Plasma 0.60-1.20 [facility] Dipstick and Microscopicon 0 03-04-2024 Appearance (U) Clear Normal Clear [facility] Comment on above: Order Comment: Name Collection Type:: Clean-Voided Midstream Performed By: #### U HCG, ADDONUAPLUS #### [facility] [address] [place] [address] Bacteria,Urine Rare Normal None Seen [facility] Comment on above: Order Comment: Name Collection Type:: Clean-Voided Midstream Performed By: #### U HCG, ADDONUAPLUS #### [address] Bilirubin,Urine Negative Normal Negative [facility] Comment on above: Order Comment: Name Collection Type:: Clean-Voided Midstream Performed By: #### U HCG, ADDONUAPLUS #### [place] [address] [place] Color (U) Light-Yellow Normal Yellow [facility] Comment on above: Order Comment: Name Collection Type:: Clean-Voided Midstream Performed By: #### U HCG, ADDONUAPLUS #### [facility] [address] [place] [address] Glucose Ql (U) Normal Normal Normal [facility] Comment on above: Order Comment: Name Collection Type:: Clean-Voided Midstream Performed By: #### U HCG, ADDONUAPLUS #### [facility] [address] [place] [address] [place] Hyaline Casts,Urine None Normal 0-8 [facility] Comment on above: Order Comment: Name Collection Type:: Clean-Voided Midstream Performed By: #### U HCG, ADDONUAPLUS #### [facility] [address] [place] [address] [place] Ketones Ql (U) Negative Normal Negative [facility] Comment on above: Order Comment: Name Collection Type:: Clean-Voided Midstream Performed By: #### U HCG, ADDONUAPLUS #### [facility] [address] [place] [address] Leukocyte esterase Test strip Ql (U) 2+ High Negative [facility] Comment on above: Order Comment: Name Collection Type:: Clean-Voided Midstream Performed By: #### U HCG, ADDONUAPLUS #### [facility] [address] [place] [address] [place] Mucus,Urine Rare Normal [facility] Comment on above: Order Comment: Name Collection Type:: Clean-Voided Midstream Performed By: #### U HCG, ADDONUAPLUS #### [place] [address] [place] Nitrite,Urine Negative Normal Negative [facility] Comment on above: Order Comment: Name Collection Type:: Clean-Voided Midstream Performed By: #### U HCG, ADDONUAPLUS #### [place] [address] [place] Occult Blood,Urine Negative Normal Negative [facility] Comment on above: Order Comment: Name Collection Type:: Clean-Voided Midstream Performed By: #### U HCG, ADDONUAPLUS #### [address] pH (U) 6.5 [pH] Normal 5.0-9.0 [facility] Comment on above: Order Comment: Name Collection Type:: Clean-Voided Midstream Performed By: #### U HCG, ADDONUAPLUS #### [place] [address] [place] Protein,Urine Negative Normal Negative [facility] Comment on above: Order Comment: Name Collection Type:: Clean-Voided Midstream Performed By: #### U HCG, ADDONUAPLUS #### [place] [address] [place] RBC,Urine 1 [HPF] Normal 0-4 [facility] Comment on above: Order Comment: Name Collection Type:: Clean-Voided Midstream Performed By: #### U HCG, ADDONUAPLUS #### [place] [address] [place] Specificy [place],Urine 1.010 Normal 1.001-1.030 [facility] Comment on above: Order Comment: Name Collection Type:: Clean-Voided Midstream Performed By: #### U HCG, ADDONUAPLUS #### [facility] [address] Squamous Epithelial Cell,Urine 5 [HPF] High 0-2 [facility] Comment on above: Order Comment: Name Collection Type:: Clean-Voided Midstream Performed By: #### U HCG, ADDONUAPLUS #### [facility] [address] Urobilinogen,Urine Normal Normal Normal [facility] Comment on above: Order Comment: Name Collection Type:: Clean-Voided Midstream Performed By: #### U HCG, ADDONUAPLUS #### [facility] [address] WBC,Urine 3 [HPF] Normal 0-4 [facility] Comment on above: Order Comment: Name Collection Type:: Clean-Voided Midstream Performed By: #### U HCG, ADDONUAPLUS #### [address] ECG 12 lead ECGon 03-04-2024 ECG 12 lead ECG [facility] [address] [place] [address] Electrocardiograph Report Signed Patient: Quentin Bird MR#: [id number] : 2000 Acct:[id number] Age/Sex: 23 / F ADM Date: 03/04/24 Loc: ER Room: Type: [facility] ER Attending Dr: Ordering Provider: Jimmy [...] QRS axis Confirmed by Jimmy Donis DO ([id number]) on 03/04/2024 3:19:49 PM Referred By: Electronically Signed By: Jimmy Donis DO Transcribed By: MUS Signed By Jimmy Donis DO 5 1519 Normal [facility] Eosinophils Auto (Bld) [#/Vo l]Ordered By: Jimmy Donis on 03-04-2024 Eosinophils (Bld) [#/Vol] Automated eosinophil count 0.0-0.45 [facility] Eosinophils/100 WBC Auto (Bl d)Ordered By: Jimmy Donis on 03-04-2024 Eosinophils/100 WBC (Bld) Automated eosinophil % . [facility] Epithelial cells.squamous [# /area] in Urine sediment by Automated countOrdered By: Jimmy Donis on 03-04-2024 Epithelial cells.squamous Auto (Urine sed) [#/Area] Epithelial cells.squamous [#/area] in Urine sediment by Automated count High 0-2 [facility] Erythrocyte distribution wid th Auto (RBC) [Ratio]Ordered By: Jimmy Donis on 03-04-2024 Erythrocyte distribution width (RBC) [Ratio] Erythrocyte distribution width [Ratio] by Automated count 11.9-15.3 [facility] Erythrocytes [#/area] in Uri ne sediment by Automated countOrdered By: Jimmy Donis on 03-04-2024 RBC Auto (Urine sed) [#/Area] Erythrocytes [#/area] in Urine sediment by Automated count 0-4 [facility] Glucose [Mass/volume] in Ser um or PlasmaOrdered By: Jimmy Donis on 03-04-2024 Glucose [Mass/Vol] Glucose [Mass/volume ] in Serum or Plasma High 70-100 [facility] Comment on above: ADA recommended refe [...] [Mass/volume] in Urine by Test strip Normal [facility] HCG ( test) IA.rapi d Ql (U)Ordered By: Jimmy Donis on 03-04-2024 HCG ( test) Ql (U) Urine human chorionic gonadotropin (hCG) detection by immunoassay [facility] HCG,Urineon 03-04-2024 Beta HCG ( test) Ql (U) Negative Normal [facility] Comment on above: Order Comment: Name Collection Type:: Clean-Voided Midstream Result Comment: PERF ORMED BY: [facility] [address] [place] [id number] PATHOLOGIST RN LABOR AND DELIVERY KIRBY BARRIENTOS M.D. Performed By: #### U HCG, ADDONUAPLUS ####[facility] [place] [address] [facility] Hematocrit Auto (Bld) [Volum e fraction]Ordered By: Jimmy Donis on 03-04-2024 Hematocrit (Bld) [Volume fraction] Hematocrit [Volume Fraction] of Blood by Automated count 34.0-46.4 [facility] Hemoglobin Test strip Ql (U) Ordered By: Jimmy Donis on 03-04-2024 Hemoglobin Ql (U) Hemoglobin [Presence ] in Urine by Test strip Negative [facility] Hemoglobin [Mass/volume] in BloodOrdered By: Jimmy Donis on 03-04-2024 Hemoglobin (Bld) [Mass/Vol] Hemoglobin [Mass/volume] in Blood 11.8-15.4 [facility] Hyaline casts [#/area] in Ur ine sediment by Automated countOrdered By: Jimmy Donis on 03-04-2024 Hyaline casts Auto (Urine sed) [#/Area] Hyaline casts [#/area] in Urine sediment by Automated count 0-8 [facility] Ketones Test strip Ql (U)Ord ered By: Jimmy Donis on 03-04-2024 Ketones Ql (U) Ketones [Presence] i n Urine by Test strip Negative [facility] Leukocyte esterase [Presence ] in Urine by Test stripOrdered By: Jimmy Donis on 03-04-2024 Leukocyte esterase Test strip Ql (U) Leukocyte esterase [Presence] in Urine by Test strip High Negative [facility] Leukocytes [#/area] in Urine sediment by Automated countOrdered By: Jimmy Donis on 03-04-2024 WBC Auto (Urine sed) [#/Area] Leukocytes [#/area] in Urine sediment by Automated count 0-4 [facility] Leukocytes [#/volume] correc chandan for nucleated erythrocytes in Blood by Automated counOrdered By: Jimmy Donis on 03-04-2024 WBC corrected for nucl RBC Auto (Bld) [#/Vol] Leukocytes [#/volume] corrected for nucleated erythrocytes in Blood by Automated coun 3.8-11.6 [facility] Lymphocytes Auto (Bld) [#/Vo l]Ordered By: Jimmy Donis on 03-04-2024 Lymphocytes (Bld) [#/Vol] Lymphocytes [#/volume] in Blood by Automated count 1.00-4.8 [facility] Lymphocytes/100 WBC Auto (Bl d)Ordered By: Jimmy Donis on 03-04-2024 Lymphocytes/100 WBC (Bld) Lymphocytes/100 leukocytes in Blood by Automated count . [facility] MCH Auto (RBC) [Entitic mass ]Ordered By: Jimmy Donis on 03-04-2024 MCH (RBC) [Entitic mass] MCH [Entitic mass] by Automated count 24.7-34.3 [facility] MCHC Auto (RBC) [Mass/Vol]Or dered By: Jimmy Donis on 03-04-2024 MCHC (RBC) [Mass/Vol] MCHC [Mass/volume] by Automated count 32.0-35.0 [facility] MCV Auto (RBC) [Entitic vol] Ordered By: Jimmy Donis on 03-04-2024 MCV (RBC) [Entitic vol] MCV [Entitic vol ume] by Automated count 80-100 [facility] Monocyte distribution width [Entitic volume] in Blood by AutomatedOrdered By: Jimmy Donis on 03-04-2024 Monocyte distribution width Auto (Bld) [Entitic vol] Monocyte distribution width [Entitic volume] in Blood by Automated 0.00-20.00 [facility] Monocytes Auto (Bld) [#/Vol] Ordered By: Jimmy Donis on 03-04-2024 Monocytes (Bld) [#/Vol] Automated blood monocyte count 0.0-0.8 [facility] Monocytes/100 WBC Auto (Bld) Ordered By: Jimmy Donis on 03-04-2024 Monocytes/100 WBC (Bld) Automated monocyte % . [facility] Mucus [Presence] in Urine by AutomatedOrdered By: Jimmy Donis on 03-04-2024 Mucus Auto Ql (U) Mucus [Presence] in Urine by Automated [facility] Neutrophils Auto (Bld) [#/Vo l]Ordered By: Jimmy Donis on 03-04-2024 Neutrophils (Bld) [#/Vol] Neutrophils [#/volume] in Blood by Automated count 1.8-7.7 [facility] Neutrophils/100 WBC Auto (Bl d)Ordered By: Jimmy Donis on 03-04-2024 Neutrophils/100 WBC (Bld) Automated neutrophil % . [facility] Nitrite Test strip Ql (U)Ord ered By: Jimmy Donis on 03-04-2024 Nitrite Ql (U) Nitrite [Presence] i n Urine by Test strip Negative [facility] No Panel InformationOrdered By: Jimmy Donis on 03-04-2024 Estimated GFR (CKD-EPI) > 60.0 mL/Min [facility] Creatinine Clearance (Chem 80.64 [facility] Nucleated erythrocytes [Pres ence] in Blood by Automated countOrdered By: Jimmy Donis on 03-04-2024 Nucleated RBC Auto Ql (Bld) Nucleated erythrocytes [Presence] in Blood by Automated count 0-0.5 [facility] Platelet mean volume Auto (B ld) [Entitic vol]Ordered By: Jimmy Donis on 03-04-2024 Platelet mean volume (Bld) [Entitic vol] Platelet mean volume [Entitic volume] in Blood by Automated count 6.3-10.7 [facility] Platelets Auto (Bld) [#/Vol] Ordered By: Jimmy Donis on 03-04-2024 Platelets (Bld) [#/Vol] Platelets [#/vol ume] in Blood by Automated count 150-450 [facility] Potassium [Moles/volume] in Serum or PlasmaOrdered By: Jimmy Donis on 03-04-2024 Potassium [Moles/Vol] Potassium [Moles/volume] in Serum or Plasma 3.5-5.1 [facility] Protein Test strip (U) [Mass /Vol]Ordered By: Jimmy Donis on 03-04-2024 Protein (U) [Mass/Vol] Protein [Mass/vol ume] in Urine by Test strip Negative [facility] RBC Auto (Bld) [#/Vol]Ordere d By: Jimmy Donis on 03-04-2024 RBC (Bld) [#/Vol] Erythrocytes [#/volume] in Blood by Automated count 3.60-5.00 [facility] Serum or plasma anion gap de terminationOrdered By: Jimmy Donis on 03-04-2024 Anion gap [Moles/Vol] Serum or plasma an ion gap determination High 6.0-15.0 [facility] Sodium [Moles/volume] in Ser um or PlasmaOrdered By: Jimmy Donis on 03-04-2024 Sodium [Moles/Vol] Sodium [Moles/volume ] in Serum or Plasma 136-145 [facility] Specific gravity Test strip (U) [Rel density]Ordered By: Jimmy Donis on 03-04-2024 Specific gravity (U) [Rel density] Specific gravity of Urine by Test strip 1.001-1.030 [facility] Urea nitrogen [Mass/volume] in Serum or PlasmaOrdered By: Jimmy Donis on 03-04-2024 Urea nitrogen [Mass/Vol] Urea nitrogen [Mass/volume] in Serum or Plasma 7-25 [facility] Urobilinogen Test strip (U) [Mass/Vol]Ordered By: Jimmy Donis on 03-04-2024 Urobilinogen (U) [Mass/Vol] Urobilinogen [Mass/volume] in Urine by Test strip Normal [facility] WBC Auto (Bld) [#/Vol]Ordere d By: Jimmy Donis on 03-04-2024 WBC (Bld) [#/Vol] Leukocytes [#/volume ] in Blood by Automated count 3.8-11.6 [facility] pH Test strip (U)Ordered By: Jimmy Donis on 03-04-2024 pH (U) pH of Urine by Test strip 5.0-9.0 [facility] CNPNon 02-18-2024 CNPN Telephone (NE50MN) MARGEQUENTIN ([id number]) 4 F Date Time Provider Department 02/18/24 DAISY DE LEON NE50MN During your visit today, we recorded the following information about you: Aislinn Lee 02/18/2024 11:50 AM Signed Prior Authorization Needed: Received by: Fax Requested by (pharmacy name): [facility] Phone number: [phone] Name of medication: Lacosamide Brand or Generic: generic Strength and dosage: 50 mg Wk 1: 150/200 Wk 2: 150/150 Wk 3: 100/150 Wk 4: 100/100 Wk 5: 50/100 WK 6: 50/50 Wk 7: 50 at bedtime Wk 8: STOP LCM Quantity Override: No Insurance company name and phone #: [employer] [phone] HUNTER [id number] Patient ID: PCN #: BIN#: Group #: Patient of Asuncion Burris RN 02/18/2024 12:37 PM Signed PA done via CMM. (Hunter: [id number]) PA Rx #: [id number] Status: sent to plan today BRAYDEN Hunter Merlene 02/20/2024 9:28 AM Signed Received approval for Lacosamide 50 mg from [place]. Approval Dates: 02/18/24 - 02/17/25. REF #: [id number] Approval uploaded to [employer]. Asuncion Garcia RN 02/20/2024 9:34 AM Signed [...] Encounter Status:Closed by ASUNCION GARCIA on 02/20/24 [facility] Taryn 02-13-2024 [facility] Telephone (NE50MN) QUENTIN BIRD ([id number]) 4 F Date Time Provider Department 02/13/24 DAISY DE LEON NE50MN During your visit today, we recorded the following information about you: Deanna Garcia 02/13/2024 2:26 PM Signed [facility]ication Con[facility] Vimpat Concern with medication Pharmacy needs clarification on SIG. Patient of Joon Marcano RN 02/13/2024 3:56 PM Signed I spoke with the pharmacist at [facility], titration schedule reviewed. Joon Melton RN Allergies [...] Encounter Status:Closed by JOON POST on 02/13/24 [facility] 02[facility]20[facility] QUENTIN BIRD ([id number]) 4 F Date Time Provider Department 02/10/24 DAISY DE LEON NE50MN During your visit today, we recorded the following information about you: Nahomy Frye 02/10/2024 9:47 AM Signed Medication Concern Person Calling: Fax from [facility] Phone #: [phone] / Name of medication: Lacosamide/Vimpat - 50MG Concern with medication: Clarification request for dosage instructions Directions are missing on the original prescription dated 02/07/[address] De Leon Forwarded to nurse. Asuncion Garcia RN 02/10/2024 10:26 AM Signed Prescription for LCM 50mg tablet. [facility]'s response: Routed for new prescription. BRAYDEN Hunetr Kelly, APRN.[facility] 02/10/2024 12:46 PM Signed The following approved medication requests have been transmitted electronically. Requested Prescriptions Signed Prescriptions Disp Refills lacosamide (VIMPAT) 50 mg tab 168 tablet 0 Sig: Wk 1: 150/200 Wk 2: 150/150 Wk 3: 100/150 Wk 4: 100/100 Wk 5: 50/100 WK 6: 50/50 Wk 7: 50 at bedtime Wk 8: STOP LCM Authorizing Provider: ROSELYN MCCULLOUGH APRN.ERADICATOR Allergies As of Date: 02/10/2024 (No Known [...] (Discontinued) Please follow wean schedule provided via [employer] Encounter Status:Closed by ROSELYN [facility]ULLOUGH [facility] Telephone (NE50MN) QUENTIN BIRD ([id number]) 4 F Date Time Provider Department 02/07/24 DAISY DE LEON NE50MN During your visit today, we recorded the following information about you: Loreto Ermelinda 02/07/2024 10:34 AM Signed Form received: From (agency / facility / parent): [facility] mobile phone salesperson (if given): Phone #: [phone] Fax # : [phone] Email: Information requested: Physicians statement Patient of [...] Sig: Please follow wean schedule provided via [employer] Authorizing Provider: HOSEA KU PA-C Rhodes, Alena, PA-C 02/07/2024 4:35 PM Signed The following approved medication requests have been transmitted electronically. 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 - lacosamide (VIMPAT) 50 mg tab Please follow wean schedule provided via [employer] - venlafaxine ER (EFFEXOR XR) 37.5 mg [...] Sig: Please follow wean schedule provided via [employer] LACOSAMIDE 50 MG TABLET 168 * 0 02/07/2024 02/07/2024 Sig: Please follow wean schedule provided via [employer] LACOSAMIDE 50 MG TABLET 168 * 0 02/07/2024 04/07/2024 Cmt: Wk 1: LCM 150/200 Wk 2: LCM 150 BID Wk 3: LCM 100/150 Wk 4: LCM 100 BID Wk 5: LCM 50/100 Wk 6: LCM 50 BID Wk 7: LCM 50 QHS Wk 8: STOP LCM Sig: Please follow wean schedule provided via [employer] Medications Discontinued During This Encounter Prescriptions - [...] Status:Closed by HOSEA KU on 02/07/24 Normal [facility] CNOVon 01-09-2024 CNOV Office Visit (NE50MN ) QUENTIN BIRD ([id number]) 4 F Date Time Provider Department 01/09/24 2:40 PM DAISY DE LEON NE50MN During your visit today, we recorded the following information about you: Pulse Respiration Blood pressure Weight 62/minute 18/minute 114/68 70.3 kg Height Last Period 1.524 m 12/27/23 Daisy De Leon DO 01/09/2024 3:45 PM Signed [facility] Patient Name: Quentin Bird Date of : 2000 ESTABLISHED EPILEPSY CLINIC NOTE 01/09/2024 2:40 PM Reason for Visit: Established Patient and Follow Up Clinical Summary: Ms. Bird is a 23 year old female seen in [facility]. Classification Summary HISTORY OF [...] have seizure. 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 Currently holding [...] been having (more content not included)... Normal [facility] 01-09-2024 [facility] Telephone (NE50MN) QUENTIN BIRD ([id number]) 4 F Date Time Provider Department 01/09/24 DAISY DE LEON NE50MN During your visit today, we recorded the following information about you: Asuncion Garcia RN 01/09/2024 4:24 PM Signed Daisy De Leon DO Beitler, Nina, RN Can we please send an order for trough lamotrigine level, CBC, CMP to [facility]? To be drawn after lamotrigine titration complete. Routed for lab orders. BRAYDEN Hunter Ailis, PA-C 01/09/2024 4:29 PM Signed Lab orders placed. TOO Chung Nina, RN 01/09/2024 4:33 PM Signed Lab order form sent to Mario Corona to review and sign via [employer]. BRAYDEN Hunter Nina, RN 01/10/2024 11:29 AM Signed Lab order form signed by Mario Corona via [employer]. Leads Direct message sent to pt, in this encounter, to confirm laboratory. BRAYDEN Hunter Nina, RN 01/10/2024 2:27 PM Signed Pt will be going to [facility] (fax #: [phone]). Lab order form sent to [facility] (fax #: [phone]) via [employer]. Confirmation received. 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] Order(s):COMPLETE BLOOD COUNT [SQCBC] Order #: [id number] FUTURE COMPREHENSIVE METABOLIC PANEL [SQCMP] Order #: [id number] FUTURE LAMOTRIGINE [SQLMTR] Order #: [id number] FUTURE Prescriptions as of 01/10/2024 - venlafaxine [...] Status:Closed by ASUNCION GARCIA on 01/10/24 Normal [facility] Alanine aminotransferase [En zymatic activity/volume] in Serum or PlasmaOrdered By: Valdez Manrique on 12-22-2023 ALT [Catalytic activity/Vol] 10 U/L Normal [facility] Comment on above: Performed By: #### C MP, CBC, PRL ####[facility] [id number] [place] [id number] [facility] ALT [Catalytic activity/Vol] Alanine aminotransferase [Enzymatic activity/volume] in Serum or Plasma [facility] Albumin [Mass/volume] in Ser um or Plasma by Bromocresol green (BCG) dye binding methoOrdered By: Valdez Manrique on 12-22-2023 Albumin BCG dye [Mass/Vol] 4.8 g/dL 3.5-5.7 [facility] Albumin BCG dye [Mass/Vol] Albumin [Mass/volume] in Serum or Plasma by Bromocresol green (BCG) dye binding metho 3.5-5.7 [facility] Alkaline phosphatase [Enzyma tic activity/volume] in Serum or PlasmaOrdered By: Valdez Manrique on 12-22-2023 ALP [Catalytic activity/Vol] 74 U/L Normal 34-104 [facility] Comment on above: Performed By: #### C MP, CBC, PRL ####[address] ALP [Catalytic activity/Vol] Alkaline phosphatase [Enzymatic activity/volume] in Serum or Plasma 34-104 [facility] Aspartate aminotransferase [ Enzymatic activity/volume] in Serum or PlasmaOrdered By: Valdez Manrique on 12-22-2023 AST [Catalytic activity/Vol] 12 U/L Low 13-39 [facility] Comment on above: Performed By: #### C MP, CBC, PRL ####[address] AST [Catalytic activity/Vol] Aspartate aminotransferase [Enzymatic activity/volume] in Serum or Plasma Low 1339 [facility] Automated basophil %Ordered By: Valdez Manrique on 12-22-2023 Basophils/100 WBC (Bld) 0.5 % Normal . [facility] Comment on above: Performed By: #### C MP, CBC, PRL ####[address] Automated basophil countOrde red By: Valdez Manrique on 12-22-2023 Basophils (Bld) [#/Vol] 0.0 10*3/uL Normal 0.0-0.2 [facility] Comment on above: Result Comment: PERF ORMED BY: [facility] [address] [place] [address] PATHOLOGIST RN LABOR AND DELIVERY OLU MEJIA M.D. Performed By: #### C MP, CBC, PRL ####[address] Automated blood monocyte cou ntOrdered By: Valdez Manrique on 12-22-2023 Monocytes (Bld) [#/Vol] 0.9 10*3/uL High 0.0-0.8 [facility] Comment on above: Performed By: #### C MP, CBC, PRL ####[place] [id number] Automated eosinophil %Ordere d By: Valdez Manrique on 12-22-2023 Eosinophils/100 WBC (Bld) 1.0 % Normal . [facility] Comment on above: Performed By: #### C MP, CBC, PRL ####[address] Automated eosinophil countOr dered By: Valdez Manrique on 12-22-2023 Eosinophils (Bld) [#/Vol] 0.1 10*3/uL Normal 0.0-0.45 [facility] Comment on above: Performed By: #### C MP, CBC, PRL ####[address] Automated monocyte %Ordered By: Valdez Manrique on 12-22-2023 Monocytes/100 WBC (Bld) 10.2 % Normal . [facility] Comment on above: Performed By: #### C MP, CBC, PRL ####[address] Automated neutrophil %Ordere d By: Valdez Manrique on 12-22-2023 Neutrophils/100 WBC (Bld) 55.5 % Normal . [facility] Comment on above: Performed By: #### C MP, CBC, PRL ####[address] Basophils Auto (Bld) [#/Vol] Ordered By: Valdez Manrique on 12-22-2023 Basophils (Bld) [#/Vol] Automated basoph il count 0.0-0.2 [facility] Basophils/100 WBC Auto (Bld) Ordered By: Valdez Manrique on 12-22-2023 Basophils/100 WBC (Bld) Automated basophil % . [facility] Bilirubin.total [Mass/volume ] in Serum or PlasmaOrdered By: Valdez Manrique on 12-22-2023 Bilirubin [Mass/Vol] 0.3 mg/dL Normal 0.3-1.0 [facility] Comment on above: Performed By: #### C MP, CBC, PRL ####[place] [address] [place] [address] [facility] Bilirubin [Mass/Vol] Bilirubin.total [Mass/volume] in Serum or Plasma 0.3-1.0 [facility] Calcium [Mass/volume] in Ser um or PlasmaOrdered By: Valdez Manrique on 12-22-2023 Calcium [Mass/Vol] 8.8 mg/dL Normal 8.6-10.3 [facility] Comment on above: Performed By: #### C MP, CBC, PRL ####[place] [id number] [place] [id number] [facility] Calcium [Mass/Vol] Calcium [Mass/volume ] in Serum or Plasma 8.6-10.3 [facility] Carbon dioxide, total [Moles /volume] in Serum or PlasmaOrdered By: Valdez Manrique on 12-22-2023 CO2 [Moles/Vol] 20.8 mmol/L Low 21.0-31.0 [facility] Comment on above: Performed By: #### C MP, CBC, PRL ####[place] [id number] [facility] CO2 [Moles/Vol] Carbon dioxide, tota l [Moles/volume] in Serum or Plasma Low 21.0-31.0 [facility] Chloride [Moles/volume] in S benedicto or PlasmaOrdered By: Valdez Manrique on 12-22-2023 Chloride [Moles/Vol] 104 mmol/L Normal 98-107 [facility] Comment on above: Performed By: #### C MP, CBC, PRL ####[place] [address] [place] [address] [facility] Chloride [Moles/Vol] Chloride [Moles/volume] in Serum or Plasma 98-107 [facility] Complete Blood Count Auto Di ffon 12-22-2023 Mean Corpuscular HGB Conc 34.3 g/dL Normal 32.0-35.0 [facility] Comment on above: Performed By: #### C MP, CBC, PRL ####[place] [id number] [place] Monocytes/100 WBC (Bld) 16.10 % Normal 0.00-20.00 [facility] Comment on above: Performed By: #### C MP, CBC, PRL ####[address] NRBC% 0.1 /100{WBC} Normal 0-0.5 [facility] Comment on above: Performed By: #### C MP, CBC, PRL ####[place] [id number] [facility] Comprehensive Metabolic Pane bridger 12-22-2023 Albumin [Mass/Vol] 4.8 g/dL Normal 3.5-5.7 [facility] Comment on above: Performed By: #### C MP, CBC, PRL ####[address] Creatinine Clr Calc Pharmacy 78.96 Normal [facility] Comment on above: Performed By: #### C MP, CBC, PRL ####[address] GFR/1.73 sq M.predicted MDRD (S/P/Bld) [Vol rate/Area] mL/min/{1.73_m2} Normal [facility] Comment on above: Performed By: #### C MP, CBC, PRL ####[place] [id number] [facility] Creatinine [Mass/volume] in Serum or PlasmaOrdered By: Valdez Manrique on 12-22-2023 Creatinine [Mass/Vol] 0.97 mg/dL Normal 0.60-1.20 [facility] Comment on above: Performed By: #### C MP, CBC, PRL ####[place] [id number] [facility] Creatinine [Mass/Vol] Creatinine [Mass/volume] in Serum or Plasma 0.60-1.20 [facility] ECG 12 lead ECGon 12-22-2023 ECG 12 lead ECG [facility] [address] [place] [address] Electrocardiograph Report Signed Patient: Quentin Bird MR#: [id number] : 2000 Acct:[id number] Age/Sex: 23 / F ADM Date: 12/22/23 Loc: ER Room: Type: [facility] ER Attending Dr: Ordering Provider: Valdez [...] ST abnormality Confirmed by Abraham Hilton DO ([id number]) on 12/22/2023 7:52:16 PM Referred By: Electronically Signed By: Abraham Hilton DO Transcribed By: MUS Signed By Abraham Hilton DO 1949 Normal [facility] Eosinophils Auto (Bld) [#/Vo l]Ordered By: Valdez Manrique on 12-22-2023 Eosinophils (Bld) [#/Vol] Automated eosinophil count 0.0-0.45 [facility] Eosinophils/100 WBC Auto (Bl d)Ordered By: Valdez Manrique on 12-22-2023 Eosinophils/100 WBC (Bld) Automated eosinophil % . [facility] Erythrocyte distribution wid th Auto (RBC) [Ratio]Ordered By: Valdez Manrique on 12-22-2023 Erythrocyte distribution width (RBC) [Ratio] Erythrocyte distribution width [Ratio] by Automated count 11.9-15.3 [facility] Erythrocyte distribution wid th [Ratio] by Automated countOrdered By: Valdez Manrique on 12-22-2023 Erythrocyte distribution width (RBC) [Ratio] 13.4 % Normal 11.9-15.3 [facility] Comment on above: Performed By: #### C MP, CBC, PRL ####[facility] [id number] [place] [id number] [facility] Erythrocytes [#/volume] in B lood by Automated countOrdered By: Valdez Manrique on 12-22-2023 RBC (Bld) [#/Vol] 4.36 10*6/uL Normal 3.60-5.00 [facility] Comment on above: Performed By: #### C MP, CBC, PRL ####[facility] [id number] [place] [id number] [facility] Globulin Calc (S) [Mass/Vol] Ordered By: Valdez Manrique on 12-22-2023 Globulin (S) [Mass/Vol] Serum globulin measurement by calculation (mass/volume) [facility] Glucose [Mass/volume] in Ser um or PlasmaOrdered By: Valdez Manrique on 12-22-2023 Glucose [Mass/Vol] 93 mg/dL Normal 70-100 [facility] Comment on above: ADA recommended refe rence rangeRandom Glucose Reference Range is dependent on time and content of last meal. Glucose of more than 200 mg/dL in a nonstressed, ambulatory subject supports the diagnosis of Diabetes Mellitus. Result Comment: [place] Glucose Reference Range is dependent on time and content of last meal. Glucose of more than 200 mg/dL in a nonstressed, ambulatory subject supports the diagnosis of Diabetes Mellitus. ADA recommended reference range Performed By: #### C MP, CBC, PRL ####[facility] [id number] [place] [id number] [facility] Glucose [Mass/Vol] Glucose [Mass/volume ] in Serum or Plasma 70-100 [facility] Comment on above: ADA recommended refe rence rangeRandom Glucose Reference Range is dependent on time and content of last meal. Glucose of more than 200 mg/dL in a nonstressed, ambulatory subject supports the diagnosis of Diabetes Mellitus. Hematocrit Auto (Bld) [Volum e fraction]Ordered By: Valdez Manrique on 12-22-2023 Hematocrit (Bld) [Volume fraction] Hematocrit [Volume Fraction] of Blood by Automated count 34.0-46.4 [facility] Hematocrit [Volume Fraction] of Blood by Automated countOrdered By: Valdez Manrique on 12-22-2023 Hematocrit (Bld) [Volume fraction] 40.5 % Normal 34.0-46.4 [facility] Comment on above: Performed By: #### C MP, CBC, PRL ####[facility] [id number] [place] [id number] [facility] Hemoglobin [Mass/volume] in BloodOrdered By: Valdez Manrique on 12-22-2023 Hemoglobin (Bld) [Mass/Vol] 13.9 g/dL Normal 11.8-15.4 [facility] Comment on above: Performed By: #### C MP, CBC, PRL ####[facility] [id number] Hemoglobin (Bld) [Mass/Vol] Hemoglobin [Mass/volume] in Blood 11.8-15.4 [facility] Leukocytes [#/volume] correc chandan for nucleated erythrocytes in Blood by Automated counOrdered By: Valdez Manrique on 12-22-2023 WBC corrected for nucl RBC Auto (Bld) [#/Vol] 9.2 10*3/uL 3.8-11.6 [facility] WBC corrected for nucl RBC Auto (Bld) [#/Vol] Leukocytes [#/volume] corrected for nucleated erythrocytes in Blood by Automated coun 3.8-11.6 [facility] Leukocytes [#/volume] in Blo od by Automated countOrdered By: Valdez Manrique on 12-22-2023 WBC (Bld) [#/Vol] 9.2 10*3/uL Normal 3.8-11.6 [facility] Comment on above: Performed By: #### C MP, CBC, PRL ####[facility] [id number] [place] [address] Lymphocytes Auto (Bld) [#/Vo l]Ordered By: Valdez Manrique on 12-22-2023 Lymphocytes (Bld) [#/Vol] Lymphocytes [#/volume] in Blood by Automated count 1.00-4.8 [facility] Lymphocytes [#/volume] in Bl ood by Automated countOrdered By: Valdez Manrique on 12-22-2023 Lymphocytes (Bld) [#/Vol] 3.0 10*3/uL Normal 1.00-4.8 [facility] Comment on above: Performed By: #### C MP, CBC, PRL ####[address] Lymphocytes/100 WBC Auto (Bl d)Ordered By: Valdez Manrique on 12-22-2023 Lymphocytes/100 WBC (Bld) Lymphocytes/100 leukocytes in Blood by Automated count . [facility] Lymphocytes/100 leukocytes i n Blood by Automated countOrdered By: Valdez Manrique on 12-22-2023 Lymphocytes/100 WBC (Bld) 32.8 % Normal . [facility] Comment on above: Performed By: #### C MP, CBC, PRL ####[facility] [id number] MCH Auto (RBC) [Entitic mass ]Ordered By: Valdez Manrique on 12-22-2023 MCH (RBC) [Entitic mass] MCH [Entitic mass] by Automated count 24.7-34.3 [facility] MCH [Entitic mass] by Automa chandan countOrdered By: Valdez Manrique on 12-22-2023 MCH (RBC) [Entitic mass] 31.9 pg Normal 24.7-34.3 [facility] Comment on above: Performed By: #### C MP, CBC, PRL ####[address] MCHC Auto (RBC) [Mass/Vol]Or dered By: Valdez Manrique on 12-22-2023 MCHC (RBC) [Mass/Vol] 34.3 g/dL 32.0-35.0 [facility] MCHC (RBC) [Mass/Vol] MCHC [Mass/volume] by Automated count 32.0-35.0 [facility] MCV Auto (RBC) [Entitic vol] Ordered By: Valdez Manrique on 12-22-2023 MCV (RBC) [Entitic vol] MCV [Entitic vol ume] by Automated count 80-100 [facility] MCV [Entitic volume] by Auto mated countOrdered By: Valdez Manrique on 12-22-2023 MCV (RBC) [Entitic vol] 92.8 fL Normal 80-100 [facility] Comment on above: Performed By: #### C MP, CBC, PRL ####[facility] [id number] [place] [address] Monocyte distribution width [Entitic volume] in Blood by AutomatedOrdered By: Valdez Manrique on 12-22-2023 Monocyte distribution width Auto (Bld) [Entitic vol] 16.10 % 0.00-20.00 [facility] Monocyte distribution width Auto (Bld) [Entitic vol] Monocyte distribution width [Entitic volume] in Blood by Automated 0.00-20.00 [facility] Monocytes Auto (Bld) [#/Vol] Ordered By: Valdez Manrique on 12-22-2023 Monocytes (Bld) [#/Vol] Automated blood monocyte count High 0.0-0.8 [facility] Monocytes/100 WBC Auto (Bld) Ordered By: Valdez Manrique on 12-22-2023 Monocytes/100 WBC (Bld) Automated monocyte % . [facility] Neutrophils Auto (Bld) [#/Vo l]Ordered By: Valdez Manrique on 12-22-2023 Neutrophils (Bld) [#/Vol] Neutrophils [#/volume] in Blood by Automated count 1.8-7.7 [facility] Neutrophils [#/volume] in Bl ood by Automated countOrdered By: Valdez Manrique on 12-22-2023 Neutrophils (Bld) [#/Vol] 5.1 10*3/uL Normal 1.8-7.7 [facility] Comment on above: Performed By: #### C MP, CBC, PRL ####[facility] [id number] Neutrophils/100 WBC Auto (Bl d)Ordered By: Valdez Manrique on 12-22-2023 Neutrophils/100 WBC (Bld) Automated neutrophil % . [facility] No Panel InformationOrdered By: Valdez Manrique on 12-22-2023 Estimated GFR (CKD-EPI) > 60.0 mL/Min [facility] Creatinine Clearance (Chem 78.96 [facility] Nucleated erythrocytes [Pres ence] in Blood by Automated countOrdered By: Valdez Manrique on 12-22-2023 Nucleated RBC Auto Ql (Bld) 0.1 /100{WBC} 0-0.5 [facility] Nucleated RBC Auto Ql (Bld) Nucleated erythrocytes [Presence] in Blood by Automated count 0-0.5 [facility] Platelet mean volume Auto (B ld) [Entitic vol]Ordered By: Valdez Manrique on 12-22-2023 Platelet mean volume (Bld) [Entitic vol] Platelet mean volume [Entitic volume] in Blood by Automated count 6.3-10.7 [facility] Platelet mean volume [Entiti c volume] in Blood by Automated countOrdered By: Valdez Manrique on 12-22-2023 Platelet mean volume (Bld) [Entitic vol] 8.4 fL Normal 6.3-10.7 [facility] Comment on above: Performed By: #### C MP, CBC, PRL ####[address] Platelets Auto (Bld) [#/Vol] Ordered By: Valdez Manrique on 12-22-2023 Platelets (Bld) [#/Vol] Platelets [#/vol ume] in Blood by Automated count 150-450 [facility] Platelets [#/volume] in Bloo d by Automated countOrdered By: Valdez Manrique on 12-22-2023 Platelets (Bld) [#/Vol] 296 10*3/uL Normal 150-450 [facility] Comment on above: Performed By: #### C MP, CBC, PRL ####[place] [id number] [facility] Potassium [Moles/volume] in Serum or PlasmaOrdered By: Valdez Manrique on 12-22-2023 Potassium [Moles/Vol] 3.6 mmol/L Normal 3.5-5.1 [facility] Comment on above: Performed By: #### C MP, CBC, PRL ####[place] [id number] [facility] Potassium [Moles/Vol] Potassium [Moles/volume] in Serum or Plasma 3.5-5.1 [facility] Prolactinon 12-22-2023 Prolactin 118.42 ng/mL High 3.34-26.72 [facility] Comment on above: Result Comment: PERF ORMED BY: [facility] [address] [place] [id number] PATHOLOGIST RN LABOR AND DELIVERY OLU MEJIA M.D. Performed By: #### C MP, CBC, PRL ####[place] [id number] [facility] Prolactin [Mass/volume] in S benedicto or PlasmaOrdered By: Valdez Manirque on 12-22-2023 Prolactin [Mass/Vol] 118.42 ng/mL High 3.34-26.72 [facility] Prolactin [Mass/Vol] Prolactin [Mass/volume] in Serum or Plasma High 3.34-26.72 [facility] Protein [Mass/volume] in Ser um or PlasmaOrdered By: Valdez Manrique on 12-22-2023 Protein [Mass/Vol] 7.9 g/dL Normal 6.4-8.9 [facility] Comment on above: Performed By: #### C MP, CBC, PRL ####[facility] [id number] Protein [Mass/Vol] Protein [Mass/volume ] in Serum or Plasma 6.4-8.9 [facility] RBC Auto (Bld) [#/Vol]Ordere d By: Valdez Manrique on 12-22-2023 RBC (Bld) [#/Vol] Erythrocytes [#/volume] in Blood by Automated count 3.60-5.00 [facility] Serum globulin measurement b y calculation (mass/volume)Ordered By: Valdez Manrique on 12-22-2023 Globulin (S) [Mass/Vol] 3.1 g/dL Normal [facility] Comment on above: Performed By: #### C MP, CBC, PRL ####[facility] [id number] Serum or plasma albumin/glob ulin mass ratioOrdered By: Valdez Manrique on 12-22-2023 Albumin/Globulin [Mass ratio] 1.5 {ratio} Normal [facility] Comment on above: Performed By: #### C MP, CBC, PRL ####[facility] [id number] Albumin/Globulin [Mass ratio] Serum or plasma albumin/globulin mass ratio [facility] Serum or plasma anion gap de terminationOrdered By: Valdez Manrique on 12-22-2023 Anion gap [Moles/Vol] 17.8 mmol/L High 6.0-15.0 [facility] Comment on above: Performed By: #### C MP, CBC, PRL ####[place] [id number] [place] [id number] [facility] Anion gap [Moles/Vol] Serum or plasma an ion gap determination High 6.0-15.0 [facility] Sodium [Moles/volume] in Ser um or PlasmaOrdered By: Valdez Manrique on 12-22-2023 Sodium [Moles/Vol] 139 mmol/L Normal 136-145 [facility] Comment on above: Performed By: #### C MP, CBC, PRL ####[facility] [place] [id number] [facility] Sodium [Moles/Vol] Sodium [Moles/volume ] in Serum or Plasma 136-145 [facility] Urea nitrogen [Mass/volume] in Serum or PlasmaOrdered By: Valdez Manrique on 12-22-2023 Urea nitrogen [Mass/Vol] 6 mg/dL Low 7-25 [facility] Comment on above: Performed By: #### C MP, CBC, PRL ####[facility] Koz[address] [place] [id number] [facility] Urea nitrogen [Mass/Vol] Urea nitrogen [Mass/volume] in Serum or Plasma Low 7-25 [facility] WBC Auto (Bld) [#/Vol]Ordere d By: Valdez Manrique on 12-22-2023 WBC (Bld) [#/Vol] Leukocytes [#/volume ] in Blood by Automated count 3.8-11.6 [facility] Taryn 12-19-2023 KRYSTALN Telephone (NE50MN) QUENTIN BIRD ([id number]) 4 F Date Time Provider Department 12/19/23 DAISY DE LEON NE50MN During your visit today, we recorded the following information about you: Joellen Breaux 12/19/2023 8:01 AM Signed Prior Authorization Needed: Received by: Fax Requested by (pharmacy name): [facility] Phone number: [phone] Name of medication: Nayzilam Strength and dosage: 5mgSig: Use 1 spray in one nostril as needed for seizures lasting longer than 2 minutes. Insurance company name and phone #: CMM HUNTER: [id number] Patient ID: PCN #: BIN#: Group #: Patient of Dr. De Leon Forwarded to nurse. Asuncion Garcia RN 12/19/2023 11:04 AM Signed PA done via CMM. (Hunter: [id number]) PA Rx #: [id number] Status: sent to plan. BRAYDEN Hunter Nina, [...] Encounter Status:Closed by ASUNCION GARCIA on 12/19/23 [facility] 11-19-2023 [facility] Telephone (NE50MN) QUENTIN BIRD ([id number]) 4 F Date Time Provider Department 11/19/23 DAISY DE LEON NE50MN During your visit today, we recorded the following information about you: Joellen Breaux 11/19/2023 9:09 AM Signed Form received: From (agency / facility): BMV mobile phone salesperson (if given): Quentin Bird Phone #: [phone] (home) Fax # : [phone] Information requested: Request for physician statement Patient of Dr. De Leon Forwarded to nurse. Asuncion Garcia RN 11/19/2023 12:54 PM Signed BMV form received. Onset- 4 years (2019) Last SZ- 09/08/2023 BMV form is for ID purposes only. BMV form sent to Dr. De Leon to review and sign via [employer]. BRAYDEN Hunter Nina, RN 11/19/2023 1:07 PM Signed BMV form signed by Dr. De Leon via [employer]. Copies sent to [employer], pt e-mail and BMV special unit via [employer]. Asuncion Garcia RN Allergies As of Date: [...] Encounter Status:Closed by ASUNCION GARC[facility] Telephone (NE50MN) QUENTIN BIRD ([id number]) 4 F Date Time Provider Department 11/14/23 DAISY DE LEON NE50MN During your visit today, we recorded the following information about you: Asuncion Garcia RN 11/14/2023 8:46 AM Signed BMV form received, pt did not fill out top portion and sign. Leads Direct message sent to pt, in this encounter. [...] Status:Closed by ASUNCION GARCIA on 11/18/23 Normal [facility] CNOVon 11-13-2023 CNOV Office Visit (NE50MN ) QUENTIN BIRD ([id number]) 4 F Date Time Provider Department 11/13/23 3:20 PM DAISY DE LEON NE50MN During your visit today, we recorded the following information about you: Pulse Blood pressure Weight Height 86/minute 109/63 68 kg 1.524 m Daisy De Leon DO 11/19/2023 9:49 AM Signed [facility] [place] [facility] Patient Name: Quentin BANEGAS Date of : 2000 INITIAL EPILEPSY CLINIC NOTE 11/13/2023 3:20 PM CHIEF COMPLAINT: New Patient (New NI Patient ) HISTORY OF PRESENT ILLNESS Ms. Bird is a 23 year old female seen in [facility] Epile[facility] Outpatient Clinic for initial [...] have seizure. 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 Currently holding [...] She is currently seeing a PCP at [facility]. Total # of Current Anti-seizure Medications: [...] Anti-seizure Therapies: (more content not included)... Normal [facility] IGP,APTIMA HPV,AGE GDLNon AGE GDLN ACOG TESTING Note . [facility] Comment on above: TESTS RESULT FLAG UN ITS REF RANGE LAB Clinician Provided Cytology Information Source.............Cervix;Endocervix No. of containers..01 ThinPrep Vial Age Algo ACOG Ramu... FLAG LEGEND: L-Low Normal,H-High Normal,LL-Alert Low,HH-Alert High <-Panic Low,>-Panic High,A-Abnormal,AA-Critical Abnormal Performed at: 01 =[facility] [address] [place] [address] Johanna Watson MD, IGP, RFX APTIMA HPV ASCU Note . [facility] Comment on above: TESTS RESULT FLAG UN ITS REF RANGE LAB DIAGNOSIS: 02 NEGATIVE FOR INTRAEPITHELIAL LESION OR MALIGNANCY. Specimen adequacy: 02 Satisfactory for evaluation. Endocervical and/or squamous metaplastic cells (endocervical component) are present. Performed by: 02 Nory Patrick, Suede Cleaner ([facility]) . 02 Note: Note 02 The [...] <-Panic Low,>-Panic High,A-Abnormal,AA-Critical Abnormal Performed at: [address] [address] Johanna Watson MD, Performed at: =[facility] [id number] Document Design Specialist: Johanna Watson MD, Phone: [phone] Performed at: [address] [id number] Document Design Specialist: Johanna Watson MD, Phone: [phone] [facility]SPATULA CERVIX ENDOCERVIX [facility] URETHRITIS/DISCHARGE PLUS VA GINITIS (HTRX)on 10-30-2023 ATOPOBIUM VAGINAE 26.070 Abnormal [facility] ATOPOBIUM VAGINAE Detected Abnormal [facility] BVAB 2,3 (BACTERIAL VAGINOSIS ASSOCIATED BACTERIA 2, 3); MOBILUNCUS SPP 0.000 [facility] BVAB 2,3 (BACTERIAL VAGINOSIS ASSOCIATED BACTERIA [...] N [facility] CNPNon 09-16-2023 [facility] Telephone (NE50MN) MARGEQUENTIN ([id number]) 4 F Date Time Provider Department 09/16/23 CARLA RICO NE50MN During your visit today, we recorded the following information about you: Joellen Breaux 09/16/2023 10:38 AM Signed Prior Authorization Needed: Received by: Fax Requested by (pharmacy name): [facility] Phone number: [phone] Name of medication: LCM Strength and dosage: 200mg Take 1 tablet by mouth two times a day. 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 Insurance company name and phone #: CMM HUNTER: [id number] Patient ID: PCN #: BIN#: Group #: [...] Encounter Status:Closed by SOMMER CARRILLO on 09/16/23 [facility] CNPAmanda 09-09-2023 CNPN Telephone (NEPEMN) QUENTIN BIRD ([id number]) 4 F Date Time Provider Department 09/09/23 [...] Encounter Status:Closed by CARLA RICO on 09/10/23 [facility] CNOVon 08-13-2023 CNOV Office Visit (NEPEMN ) QUENTIN BIRD Rodo ([id number]) 4 F Date Time Provider Department 08/13/23 2:00 PM CARLA RICO During your visit today, we recorded the following information about you: Temperature Pulse Respiration Blood pressure 97.6 degrees 73/minute 20/minute 117/69 Weight Height Last Period 71.9 kg 1.524 m 07/28/23 Carla Rico MD 08/13/2023 7:51 PM Signed [facility] Section of Pediatric Epilepsy/Neurology Epilepsy Center, [facility] [place] Date of Service: 02/01/2023 RETURN VISIT NOTE [...] had a (more content not included)... Normal [facility] CNOVon 04-29-2023 CNOV Office Visit (NESLFV ) QUENTIN BIRD ([id number]) 4 F Date Time Provider Department 04/29/23 1:00 PM THAO PAGAN During your visit today, we recorded the following information about you: Pulse Blood pressure Weight Height 70/minute 104/70 71.8 kg 1.524 m Thao Pagan MD 04/29/2023 3:25 PM Signed [facility] Sleep Disorders Center New Patient Evaluation PATIENT NAME: Quentin Bird DATE OF SERVICE: April 29, 2023 CONSULTING PROVIDER: Carla Chowdary [address] [facility] [address] REASON FOR CONSULT: Carla Chowdary sends the [...] negative study. 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 Normal [facility] 25(OH)D3 [facility] 2022 25-hydroxyvitamin D3 [Mass/Vol] 29.0 ng/mL Low 31.0-80.0 [facility] Comment on above: Order Comment: Speci men Type: BLOOD SPECIMEN Ordering Facility: [facility] Address: [address] [place] [address] Result Comment: Clas sification of 25 [place] Vitamin D status: Deficiency/Insufficiency: < or = 30 ng/ml. Sufficiency/Optimal Levels: 31-80 ng/mL Toxicity: > 100 ng/mL. Test performed by chemiluminescent immunoassay. Performed By: #### 1 [id number] #### [facility] CLIA [id number] [address] [place] [address] [place] CNOVon 02-01-2023 CN Office Visit ([facility] ) QUENTIN BIRD ([id number]) 4 F Date Time Provider Department 02/01/23 3:40 PM CARLA RICO [facility] During your visit today, we recorded the following information about you: Pulse Blood pressure Weight Height 67/minute 117/70 68.4 kg 1.545 m Carla Rico MD 02/01/2023 4:38 PM Signed [facility] Section of Pediatric Epilepsy/Neurology Epilepsy Center, Neurological [place] Date of Service: 02/01/2023 RETURN VISIT NOTE HISTORY SINCE LAST VISIT: The patient has returned for follow-up regarding well controlled RAHEEL. Possible family history of RAHEEL SERIALS LIBRARIANBri This is a 22 year old left [...] two times a day for 180 days. mx-wk-ilko-FA-Ca carb-vit K (WOMEN'S MULTIVITAMIN) 18 mg-400 mcg- [...] benefits, an (more content not included)... Normal [facility] LACOSAMIDEon 02-01-2023 DESMETHYLLACOSAMIDE 0.9 ug/mL Normal <2.6 [facility] Comment on above: Order Comment: Manuela lockett Type: BLOOD SPECIMEN Ordering Facility: [facility] Address: [address] [place] [address] Result Comment: Expe cted concentration of patients receiving 200-400 mg/day is up to 2.5 ug/mL for Desmethyllacosamide. This test was developed and its performance characteristics determined by [facility]'s [facility] Pathology and Laboratory Medicine [place] ([facility]). It has not been cleared or approved by the FDA. [facility] is regulated under CLIA as qualified to perform high-complexity testing. This test is used for clinical purposes. It should not be regarded as investigational or for research. Performed By: #### L ACOS #### [facility] CLIA [id number] [address] [place] [address] [place] Lacosamide [Mass/Vol] 6.2 ug/mL Normal 2.2-19.8 [facility] Comment on above: Order Comment: Manuela lockett Type: BLOOD SPECIMEN Ordering Facility: [facility] Address: [address] [place] [address] Result Comment: Expe cted concentration of patients receiving 200-400 mg/day is 2.2-19.8 ug/mL for Lacosamide. This test was developed and its performance characteristics determined by [facility]'s [facility] Pathology and Laboratory Medicine [place] (RT[facility]). It has not been cleared or approved by the FDA. [facility] is regulated under CLIA as qualified to perform high-complexity testing. This test is used for clinical purposes. It should not be regarded as investigational or for research. Performed By: #### L ACOS #### [facility] CLIA [id number] [facility] [place] [address] [place] Vital Signs Date Time Vital Sign Value Performing Clinician Faci lity 10-13-2024 08:35-0400 Body mass index (BMI) [Ratio] 27.3 kg/m2 Jennifer Justice PA Work Phone: [facility] 10-13-2024 08:35-0400 Body weight 65.55 kg Jennifer Delmar PA Work Phone: [facility] 10-13-2024 08:35-0400 Diastolic blood pressure 60 mm[Hg] Jennifer Justice PA Work Phone: [facility] 10-13-2024 08:35-0400 Systolic blood pressure 102 mm[Hg] Jennifer Justice PA Work Phone: [facility] 10-06-2024 10:08-0400 Body mass index (BMI) [Ratio] 26.79 kg/m2 Jennifer Delmar PA Work Phone: [facility] 10-06-2024 10:08-0400 Body weight 64.32 kg Jennifer Delmar PA Work Phone: [facility] 10-06-2024 10:08-0400 Diastolic blood pressure 64 mm[Hg] Jennifer Delmar PA Work Phone: [facility] 10-06-2024 10:08-0400 Systolic blood pressure 104 mm[Hg] Jennifer Justice PA Work Phone: [facility] 09-16-2024 10:07-0400 Body mass index (BMI) [Ratio] 27.63 kg/m2 Andreas Samson [employer]ARIAN Work Phone: [facility] 09-16-2024 10:07-0400 Body weight 66.34 kg Andreas Chapin [employer]IAN Work Phone: [facility] 09-16-2024 10:07-0400 Diastolic blood pressure 72 mm[Hg] Andreas Chapin [employer]ARIAN Work Phone: [facility] 09-16-2024 10:07-0400 Systolic blood pressure 106 mm[Hg] Andreas Chapin [employer]S LIBRARIAN Work Phone: [facility] 08-27-2024 12:31-0400 Body weight 71.4 kg Nory Wilkinsman [employer]IAN-C Work Phone: [facility] 08-27-2024 12:31-0400 Diastolic blood pressure 72 mm[Hg] Nory Aguilar [employer] LIB[employer]IAN[employer]C Work Phone: [facility] 08-27-2024 12:31-0400 Heart rate 88 /min Nory Aguilar [employer] LIB[employer]IAN-C Work Phone: [facility] 08-27-2024 12:31-0400 SaO2% (BldA) [Mass fraction] 99 % Nory Wilkinsman [employer]IAN-C Work Phone: [facility] 08-27-2024 12:31-0400 Systolic blood pressure 108 mm[Hg] Nory Wilkinsman [employer]IAN-C Work Phone: [facility] 08-26-2024 14:23-0400 Body mass index (BMI) [Ratio] 27.74 kg/m2 Jonathan Clara DO Work Phone: [facility] 08-26-2024 14:23-0400 Body weight 66.59 kg Jonathan Clara DO Work Phone: [facility] 08-26-2024 14:23-0400 Diastolic blood pressure 68 mm[Hg] Jonathan Clara DO Work Phone: [facility] 08-26-2024 14:23-0400 Systolic blood pressure 104 mm[Hg] Jonathan Clara DO Work Phone: [facility] 06-18-2024 15:28-0400 Body mass index (BMI) [Ratio] 30.04 kg/m2 Christopher Ren DO Work Phone: [facility] 06-18-2024 15:28-0400 Body weight 72.12 kg Christopher Ren DO Work Phone: [facility] 06-18-2024 15:28-0400 Diastolic blood pressure 72 mm[Hg] Christopher Ren DO Work Phone: [facility] 06-18-2024 15:28-0400 Heart rate 79 /min Gabi Mcclure DO Work Phone: [facility] 06-18-2024 15:28-0400 SaO2% (BldA) [Mass fraction] 98 % Gabi Mcclure DO Work Phone: [facility] 06-18-2024 15:28-0400 Systolic blood pressure 106 mm[Hg] Gabi Mcclure DO Work Phone: [facility] 04-13-2024 16:16-0500 Body height 154.9 cm Nory Aguilar [employer]S LIBRARIAN Work Phone: [facility] 04-13-2024 16:16-0500 Body mass index (BMI) [Ratio] 30.16 kg/m2 Nory Aguilar [employer]S LIBRARIAN Work Phone: [facility] 04-13-2024 16:16-0500 Body weight 72.39 kg Nory Augilar [employer]S LIBRARIAN Work Phone: [facility] 04-13-2024 16:16-0500 Diastolic blood pressure 78 mm[Hg] Nory Aguilar S[employer]S LIBRARIAN Work Phone: [facility] 04-13-2024 16:16-0500 Heart rate 64 /min Nory Aguilar [employer]S LIBRARIAN Work Phone: [facility] 04-13-2024 16:16-0500 Systolic blood pressure 108 mm[Hg] Nory Aguilar S[employer]S LIBRARIAN Work Phone: [facility] 03-16-2024 17:51-0500 Body temperature 99.6 [degF] PHYSICIAN NO [facility] 03-16-2024 17:51-0500 Diastolic blood pressure 53 mm[Hg] PHYSICIAN NO [facility] 03-16-2024 17:51-0500 Heart rate 119 /min PHYSICIAN NO [facility] 03-16-2024 17:51-0500 Respiratory rate 18 /min PHYSICIAN NO [facility] 03-16-2024 17:51-0500 SaO2% (BldA) [Mass fraction] 99 % PHYSICIAN NO [facility] 03-16-2024 17:51-0500 Systolic blood pressure 101 mm[Hg] PHYSICIAN NO [facility] 03-16-2024 13:37-0500 Body height 152.4 cm PHYSICIAN NO [facility] 03-16-2024 13:37-0500 Body weight 71.25 kg PHYSICIAN NO [facility] 03-04-2024 09:54-0500 Diastolic blood pressure 73 mm[Hg] PHYSICIAN NO [facility] 03-04-2024 09:54-0500 Heart rate 95 /min PHYSICIAN NO [facility] 03-04-2024 09:54-0500 Respiratory rate 20 /min PHYSICIAN NO [facility] 03-04-2024 09:54-0500 SaO2% (BldA) [Mass fraction] 100 % PHYSICIAN NO [facility] 03-04-2024 09:54-0500 Systolic blood pressure 147 mm[Hg] PHYSICIAN NO [facility] 03-04-2024 09:06-0500 Body height 152.4 cm PHYSICIAN NO [facility] 03-04-2024 09:06-0500 Body temperature 98.8 [degF] PHYSICIAN NO [facility] 03-04-2024 09:06-0500 Body weight 68.07 kg PHYSICIAN NO [facility] 01-09-2024 14:30-0500 Body height 152.4 cm Daisy Chiprean DO Work Phone: [facility] 01-09-2024 14:30-0500 Body mass index (BMI) [Ratio] 30.27 kg/m2 Daisy Chiprean DO Work Phone: [facility] 01-09-2024 14:30-0500 Body weight 70.31 kg Daisy Chiprean DO Work Phone: [facility] 01-09-2024 14:30-0500 Diastolic blood pressure 68 mm[Hg] Daisy Chiprean DO Work Phone: [facility] 01-09-2024 14:30-0500 Heart rate 62 /min Daisy Chiprean DO Work Phone: [facility] 01-09-2024 14:30-0500 Respiratory rate 18 /min Daisy De Leon DO Work Phone: [facility] 01-09-2024 14:30-0500 SaO2% (BldA) [Mass fraction] 98 % Daisy De Leon DO Work Phone: [facility] 01-09-2024 14:30-0500 Systolic blood pressure 114 mm[Hg] Daisy De Leon DO Work Phone: [facility] 12-22-2023 18:17-0500 Diastolic blood pressure 67 mm[Hg] PHYSICIAN NO [facility] 12-22-2023 18:17-0500 Heart rate 125 /min PHYSICIAN NO [facility] 12-22-2023 18:17-0500 Respiratory rate 18 /min PHYSICIAN NO [facility] 12-22-2023 18:17-0500 SaO2% (BldA) [Mass fraction] 100 % PHYSICIAN NO [facility] 12-22-2023 18:17-0500 Systolic blood pressure 125 mm[Hg] PHYSICIAN NO [facility] 12-22-2023 16:55-0500 Body height 152.4 cm PHYSICIAN NO [facility] 12-22-2023 16:55-0500 Body temperature 97.6 [degF] PHYSICIAN NO [facility] 12-22-2023 16:55-0500 Body weight 68.03 kg PHYSICIAN NO [facility] 12-16-2023 09:47-0400 Body mass index (BMI) [Ratio] 31.91 kg/m2 Jennifer CALLAWAY Work Phone: [facility] 12-16-2023 09:47-0400 Body weight 74.12 kg Jennifer CALLAWAY Work Phone: [facility] 12-16-2023 09:47-0400 Diastolic blood pressure 64 mm[Hg] Jennifer CALLAWAY Work Phone: [facility] 12-16-2023 09:47-0400 Systolic blood pressure 102 mm[Hg] Jennifer Rendon PA Work Phone: [facility] 11-13-2023 14:58-0400 Body height 152.4 cm Daisy Chiprean DO Work Phone: [facility] 11-13-2023 14:58-0400 Body mass index (BMI) [Ratio] 29.29 kg/m2 Daisy Chiprean DO Work Phone: [facility] 11-13-2023 14:58-0400 Body weight 68.04 kg Daisy Chiprean DO Work Phone: [facility] 11-13-2023 14:58-0400 Diastolic blood pressure 63 mm[Hg] Daisy Chiprean DO Work Phone: [facility] 11-13-2023 14:58-0400 Heart rate 86 /min Daisy Chiprean DO Work Phone: [facility] 11-13-2023 14:58-0400 Systolic blood pressure 109 mm[Hg] Daisy Chiprean DO Work Phone: [facility] 10-28-2023 15:34-0400 Body height 152.4 cm Jonathan Clara DO Work Phone: [facility] 10-28-2023 15:34-0400 Body mass index (BMI) [Ratio] 30.66 kg/m2 Jonathan Clara DO Work Phone: [facility] 10-28-2023 15:34-0400 Body weight 71.22 kg Jonathan Clara DO Work Phone: [facility] 10-28-2023 15:34-0400 Diastolic blood pressure 78 mm[Hg] Jonathan Clara DO Work Phone: [facility] 10-28-2023 15:34-0400 Systolic blood pressure 118 mm[Hg] Jonathan Clara DO Work Phone: [facility] 08-13-2023 13:46-0400 Body height 152.4 cm Carla Chowdary MD Work Phone: [facility] 08-13-2023 13:46-0400 Body mass index (BMI) [Ratio] 30.96 kg/m2 Carla Chowdary MD Work Phone: [facility] 08-13-2023 13:46-0400 Body temperature 97.59 [degF] Carla Chowdary MD Work Phone: [facility] 08-13-2023 13:46-0400 Body weight 71.9 kg Carla Chowdary MD Work Phone: [facility] 08-13-2023 13:46-0400 Diastolic blood pressure 69 mm[Hg] Carla Chowdary MD Work Phone: [facility] 08-13-2023 13:46-0400 Heart rate 73 /min Carla Chowdary MD Work Phone: [facility] 08-13-2023 13:46-0400 Respiratory rate 20 /min Carla Chowdary MD Work Phone: [facility] 08-13-2023 13:46-0400 SaO2% (BldA) [Mass fraction] 100 % Carla Chowdary MD Work Phone: [facility] 08-13-2023 13:46-0400 Systolic blood pressure 117 mm[Hg] Carla Chowdary MD Work Phone: [facility] 06-14-2023 11:44-0400 Body height 152.4 cm [facility] 06-14-2023 11:44-0400 Body mass index (BMI) [Ratio] 30.2 kg/m2 [facility] 06-14-2023 11:44-0400 Body temperature 98.9 [degF] [facility] 06-14-2023 11:44-0400 Body weight 70.36 kg [facility] 06-14-2023 11:44-0400 Diastolic blood pressure 82 mm[Hg] [facility] 06-14-2023 11:44-0400 Heart rate 96 /min [facility] 06-14-2023 11:44-0400 Respiratory rate 18 /min [facility] 06-14-2023 11:44-0400 SaO2% (BldA) [Mass fraction] 99 % [facility] 06-14-2023 11:44-0400 Systolic blood pressure 126 mm[Hg] [facility] 04-29-2023 12:50-0400 Body height 152.4 cm Thao Pagan MD Work Phone: [facility] 04-29-2023 12:50-0400 Body weight 71.8 kg Thao Pagan MD Work Phone: [facility] 04-29-2023 12:50-0400 Diastolic blood pressure 70 mm[Hg] Thao Pagan MD Work Phone: [facility] 04-29-2023 12:50-0400 Heart rate 70 /min Thao Pagan MD Work Phone: [facility] 04-29-2023 12:50-0400 Systolic blood pressure 104 mm[Hg] Thao Pagan MD Work Phone: [facility] 04-22-2023 05:15-0500 Body height 154.5 cm Sleep Main Work Phone: [facility] 04-22-2023 05:15-0500 Body weight 68.4 kg Sleep Main Work Phone: [facility] 02-01-2023 15:23-0500 Body height 154.5 cm Carla Chowdary MD Work Phone: [facility] 02-01-2023 15:23-0500 Body weight 68.45 kg Carla Chowdary MD Work Phone: [facility] 02-01-2023 15:23-0500 Diastolic blood pressure 70 mm[Hg] Carla Chowdary MD Work Phone: [facility] 02-01-2023 15:23-0500 Heart rate 67 /min Carla Chowdary MD Work Phone: [facility] 02-01-2023 15:23-0500 SaO2% (BldA) [Mass fraction] 100 % Carla Chowdary MD Work Phone: [facility] 02-01-2023 15:23-0500 Systolic blood pressure 117 mm[Hg] Carla Chowdary MD Work Phone: [facility] Encounters Encounter Date Encounter Type Care Provider Facility Start: 11-27-2024 End: 11-27-2024 Clinisync Result Encounter Jonathan Clara DO Work Phone: [facility] Unsolicited Start: 11-27-2024 End: 11-27-2024 Clinisync Result Encounter Jonathan Clara DO Work Phone: [facility] Unsolicited Start: 11-05-2024 End: 11-05-2024 Patient encounter procedure Gabi Porras DO -Lab [facility] Work Phone: Start: 11-05-2024 End: 11-05-2024 ambulatory Nory TRIPATHI Work Phone: [facility] Work Phone: Start: 11-05-2024 End: [...] 15 minutes Jennifer CALLAWAY Work Phone: [facility] Comment on above: Menorrhagia with irr egular cycle; Insulin resistance; Herpes genitalis in women Start: 10-13-2024 End: 10-13-2024 ambulatory JENNIFER RENDON Not Available Start: 10-08-2024 End: 10-08-2024 Telephone encounter Jennifer CALLAWAY Work Phone: [facility] Start: 10-06-2024 End: 10-06-2024 Bamboo flowsheet Jennifer Delmar PA Work Phone: [facility] Start: 10-06-2024 End: 10-09-2024 Bamboo flowsheet Jennifer Justice PA Work Phone: [facility] Start: 10-06-2024 End: 10-09-2024 Clinisync Result [...] 09-16-2024 End: 09-16-2024 Bamboo flowsheet Andreas Samson SERIALS LIBRARIAN Work Phone: [facility] Start: 09-16-2024 End: 09-18-2024 Bamboo flowsheet Andreas Samson [employer]S LIBRARIAN Work Phone: [facility] Start: 09-16-2024 End: 09-17-2024 Clinisync Result Encounter Andreas Samson NP Work Phone: [facility] Unsolicited Start: 09-16-2024 End: 09-18-2024 External Result Encounter Andreas Samson [employer]S LIBRARIAN Work Phone: [facility] Unsolicited Start: 09-16-2024 End: 09-16-2024 ambulatory ANDREAS CHAPIN Not Available Start: 09-16-2024 End: 09-16-2024 Office outpatient visit 15 minutes Andreas Samson [employer]S LIBRARIAN Work Phone: [facility] [place] Comment on above: STD exposure; Sexually transmitted disease exposure; BV (bacterial vaginosis) Start: 09-07-2024 End: 09-07-2024 ambulatory Kathryn Escobedo APRN-ERADICATOR Facility:[facility] Start: 08-27-2024 End: 08-27-2024 ambulatory Nory Aguilar SERIALS LIBRARIAN-C Work Phone: [facility] Work Phone: Start: 08-27-2024 End: 08-27-2024 Patient encounter procedure Gabi Porras -[facility] Work Phone: Start: 08-26-2024 End: 08-26-2024 Bamboo flowsheet Jonathan Clara DO Work Phone: [facility] Start: 08-26-2024 End: 08-27-2024 Bamboo flowsheet Jonathan Clara DO Work Phone: [facility] Start: 08-26-2024 End: 08-27-2024 External Result Encounter Andreas Samson SERIALS LIBRARIAN Work Phone: [facility] Unsolicited Start: [...] End: 05-18-2024 Patient encounter procedure PHYSICIAN NO [facility] Work Phone: Start: 05-18-2024 End: 05-18-2024 ambulatory PHYSICIAN NO [facility] Work Phone: Start: 04-20-2024 End: 04-20-2024 External Result Encounter Nory Aguilar NP Work Phone: [facility] Unsolicited Start: 04-20-2024 End: 04-20-2024 External Result Encounter Nory Aguilar NP Work Phone: [facility] Unsolicited Start: 04-20-2024 End: 04-20-2024 Patient encounter procedure PHYSICIAN NO [facility] Work Phone: Start: 04-20-2024 End: 04-20-2024 ambulatory PHYSICIAN NO [facility] Work Phone: Start: 04-20-2024 Encounter for genera l adult medical examination without abnormal findings Nory Aguilar [facility] Start: 04-15-2024 End: 04-15-2024 ambulatory DAISY DE LEON Facility:[facility] Start: 04-13-2024 End: 04-13-2024 ambulatory NORY AGUILAR Not Available Start: 04-13-2024 End: 04-13-2024 Patient encounter status Nory Aguilar SERIALS LIBRARIAN Work Phone: [facility] Start: 04-13-2024 End: 04-13-2024 Periodic preventive med est patient 18-39 yrs Nory Aguilar SERIALS LIBRARIAN Work Phone: [facility] Comment on above: Wellness examination (Primary Dx); Juvenile myoclonic epilepsy, not intractable, with status epilepticus (CMS/HCC); Tachycardia; Screening for deficiency anemia; Screening for cardiovascular condition; Screening for thyroid disorder; Screening for lipid disorders; PCOS (polycystic ovarian syndrome); Recurrent major depression in partial remission (HCC) (CMS/HCC); Anxiety and depression (CMS/HCC) Start: 04-13-2024 End: 04-13-2024 Bamboo flowsheet Nory Aguilar SERIALS LIBRARIAN Work Phone: [facility] Start: 04-13-2024 End: 04-13-2024 Bamboo flowsheet Nory Aguilar SERIALS LIBRARIAN Work Phone: [facility] Start: 03-16-2024 End: 03-16-2024 Emergency department patient visit PHYSICIAN NO [facility] Work Phone: Start: 03-04-2024 End: 03-05-2024 ambulatory Daisy Rahmanan DO Work Phone: Neurology Comment on above: Another seizure Start: 03-04-2024 End: 03-04-2024 Emergency department patient visit PHYSICIAN NO [facility] Work Phone: Start: 03-03-2024 End: [...] Start: 01-09-2024 End: 01-09-2024 ambulatory DAISY MCDONALDMARILUZYARIEL Facility:[facility] Start: 01-09-2024 End: 01-10-2024 Telephone encounter Daisy De Leon DO Work Phone: Neurology Comment on above: Orders Start: 12-23-2023 End: 12-23-2023 ambulatory Daisy De Leon DO Work Phone: Neurology Comment on above: Another seizure Start: 12-22-2023 End: 12-22-2023 Emergency department patient visit PHYSICIAN NO [facility] Work Phone: Start: 12-19-2023 End: [...] 12-11-2023 ambulatory PHYSICIAN NO [facility] Work Phone: Start: 12-11-2023 End: 12-11-2023 Patient encounter procedure PHYSICIAN NO [facility] [address] Work Phone: Start: [...] 11-13-2023 ambulatory DAISY DE LEON Facility:[facility] Start: 10-28-2023 End: 10-28-2023 Patient encounter [...] End: 08-14-2023 ambulatory CARLA CHOWDARY Facility:[facility] Start: 08-13-2023 End: 08-13-2023 Patient encounter procedure Carla Chowdary MD Work Phone: Neurology Comment on above: Juvenile myoclonic e pilepsy, not intractable, with status epilepticus (HCC) Start: 06-14-2023 End: 06-14-2023 Departed Referred OUTDOOR ILLUMINATING ENGINEER Maira Gibson Work Phone: [facility] [place] Work Phone: Start: 06-14-2023 End: 06-14-2023 ambulatory [facility] Work Phone: Start: 06-14-2023 End: 06-14-2023 Patient encounter procedure [facility] Work Phone: Start: 04-29-2023 End: 04-29-2023 ambulatory THAO PAGAN Facility:[facility] Start: 04-29-2023 End: 04-29-2023 Patient [...] End: 04-21-2023 ambulatory CARLA CHOWDARY Facility:[facility] Start: 04-15-2023 Chart abstracting Sleep Center [...] (HTRX) Jennifer CALLAWAY Work Phone: Start: 10-06-2024 [facility] HERPES SIMPLEX V IRUS 1/2 DNA PCR Jennifer CALLAWAY Work Phone: Start: 09-16-2024 HIV AB/P24 AG WITH REFLEX Andreas Samson [employer]ERIALS LIBRARIAN Work Phone: Start: 09-16-2024 RECURRENT VAGINITIS (HTRX) Andreas Samson [employer] LIBRARIAN Work Phone: Start: 08-26-2024 RECURRENT VAGINITIS (HTRX) Andreas Samson SERIALS LIBRARIAN Work Phone: Start: 04-20-2024 Complete blood count with white cell differential, automated Nory Aguilar [employer]S LIBRARIAN Work Phone: Start: 03-16-2024 Viral nucleic acid [...] DTaP,Tdap,Td Vaccine (7 - Td or Tdap) [facility] Start: 11-27-2024 End: 11-27-2024 ambulatory 11/27/2024 9:00 AM EDT Initial [facility] [place] [address] [place] [address] [place] [address] [facility] [place] Start: 11-27-2024 End: 11-27-2024 Professional / ancillary services management 11/27/2024 8:30 AM EDT Ancillary Procedure [facility] [address] [place] [address] [place] [id number] [facility] Start: 11-03-2024 End: 11-03-2024 [...] Office Visit [place] [place] [address] [place] [id number] Gabi Mcclure, DO [address] [place] [address] AND[place] Start: 06-18-2024 End: 06-18-2024 Patient encounter procedure 06/18/2024 3:30 PM EDT Office Visit [place]RE [place] [address] [place] [id number] Gabi Mcclure, DO [address] [place] [address] Arrived ANDRE FRANKEVUE Comment on above: Arrived Start: 05-25-2024 End: 05-25-2024 Patient encounter procedure 05/25/2024 11:30 AM EDT Office Visit ANDRE [place] [address] [place], [place] [address] [address] Ren Bluedilma [address] [place], [place] [address] [address] ANDRE [place] Start: 05-20-2024 End: 05-20-2024 Patient encounter procedure 05/20/2024 2:15 PM EDT Office Visit ANDRE [place] [address] [place], [place] [address], [place] [address] Gabi Mcclure DO [address] [place] [address] ANDRE [place] Start: 04-15-2024 End: 04-15-2024 Patient encounter procedure 04/15/2024 10:30 AM EST Office Visit Neurology [address] [place] [address] Juvenile myoclonic epilepsy, not intractable, 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.B01] Neurology Comment on above: Juvenile myoclonic e pilepsy, not intractable, 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.B01] Start: 04-13-2024 End: 04-13-2025 CBC panel - Blood by Automated count CBC Lab Routine Wellness examination Screening for deficiency anemia Expected: 04/13/2024 (Approximate), Expires: 04/13/2025 [facility] Comment on above: Expected: 04/13/2024 (Approximate), Expires: 04/13/2025 Start: 04-13-2024 End: 04-13-2025 Comprehensive metabolic 2000 panel - Serum or Plasma Comprehensive metabolic panel Lab Routine Wellness examination Screening for cardiovascular condition Expected: 04/13/2024 (Approximate), Expires: 04/13/2025 [facility] Comment on above: Expected: 04/13/2024 (Approximate), Expires: 04/13/2025 Start: 04-13-2024 End: 04-13-2025 ECG 12 lead ECG 12 lead ECG Routine Juvenile myoclonic epilepsy, not intractable, with status epilepticus (CMS/HCC) Tachycardia Expected: 04/13/2024 (Approximate), Expires: 04/13/2025 [facility] Work Phone: Comment on above: Expected: 04/13/2024 (Approximate), Expires: 04/13/2025 Start: 04-13-2024 End: 04-13-2025 Lipid 1996 panel - Serum or Plasma Lipid panel Lab Routine Wellness examination Screening for lipid disorders Expected: 04/13/2024 (Approximate), Expires: 04/13/2025 [facility] Comment on above: Expected: 04/13/2024 (Approximate), Expires: 04/13/2025 Start: 04-13-2024 End: 04-13-2025 Thyrotropin [Units/volume] in Serum or Plasma TSH Lab Routine Wellness examination Screening for thyroid disorder Expected: 04/13/2024 (Approximate), Expires: 04/13/2025 [facility] Comment on above: Expected: 04/13/2024 (Approximate), Expires: 04/13/2025 Start: 04-13-2024 End: 04-13-2025 Thyroxine (T4) free [Mass/volume] in Serum or Plasma T4, free Lab Routine Wellness examination Screening for thyroid disorder Expected: 04/13/2024 (Approximate), Expires: 04/13/2025 [facility] Comment on above: Expected: 04/13/2024 (Approximate), Expires: 04/13/2025 Start: 02-06-2024 End: 05-07-2024 Zonisamide [Mass/volume] in Serum or Plasma ZONISAMIDE Lab Routine Juvenile myoclonic epilepsy, not intractable, with status epilepticus (HCC) Expected: 02/06/2024, Expires: 05/07/2024 [facility] Work Phone: Comment on above: Expected: 02/06/2024 , Expires: 05/07/2024 Start: 01-09-2024 End: 01-09-2024 Patient encounter procedure 01/09/2024 2:40 PM EST Office Visit Neurology [address] [place] [address] Daisy De Leon DO [address] [place] [address] f/u Neurology Comment on above: f/u Start: 01-09-2024 End: 04-09-2024 CBC panel - Blood by Automated count COMPLETE BLOOD COUNT Lab Routine Juvenile myoclonic epilepsy, not intractable, with status epilepticus (HCC) Expected: 01/09/2024, Expires: 04/09/2024 [facility] Work Phone: Comment on above: Expected: 01/09/2024 , Expires: 04/09/2024 Start: 01-09-2024 End: 04-09-2024 Comprehensive metabolic 2000 panel - Serum or Plasma COMPREHENSIVE METABOLIC PANEL Lab Routine Juvenile myoclonic epilepsy, not intractable, with status epilepticus (HCC) Expected: 01/09/2024, Expires: 04/09/[address] [facility] Comment on above: Expected: 01/09/2024 , Expires: 04/09/2024 Start: 01-09-2024 End: 04-09-2024 lamoTRIgine [Mass/volume] in Serum or Plasma LAMOTRIGINE Lab Routine Juvenile myoclonic epilepsy, not intractable, with status epilepticus (HCC) Expected: 01/09/2024, Expires: 04/09/[address] [facility] Comment on above: Expected: 01/09/2024 , Expires: 04/09/2024 Start: 12-16-2023 End: 12-16-2023 Patient encounter procedure 12/16/2023 9:30 AM EDT Office Visit [facility] [address] [place] [address] Jennifer Rendon PA [address] [place] [address] Arrived [facility] Comment on above: Arrived Start: 11-13-2023 End: 11-13-2023 Patient encounter procedure 11/13/2023 3:20 PM EDT Office Visit Neurology [address] [phone] Daisy De Leon DO [address] [place] [address] transition of care Neurology Comment on above: transition of care Start: 10-23-2023 Screening for malign ant neoplasm of cervix Cervical Cancer Screening [facility] Start: 10-20-2023 Covid-19 Vaccine ( season) Covid-19 Vaccine () [facility] Start: 10-20-2023 Influenza vaccination Influenza Vacc ine (#1) [facility] Start: 06-14-2023 Bacteria identified in Urine by Culture [facility] Start: 02-01-2023 End: 05-03-2023 25-hydroxyvitamin D3 [Mass/volume] in Serum or Plasma [facility] Work Phone: Comment on above: Expected: 02/01/2023 , Expires: 05/03/2023 Start: 02-01-2023 End: 05-03-2023 LACOSAMIDE [facility] Work Phone: Comment on above: Expected: 02/01/2023 , Expires: 05/03/2023 Start: 10-19-2022 Covid-19 Vaccine ( season) Covid-19 Vaccine ( season) [facility] Start: 10-19-2022 Covid-19 Vaccine ( season) Covid-19 Vaccine ( season) [facility] Start: 10-19-2022 Influenza vaccination Influenza Vacc ine (#1) [facility] Start: 06-04-2022 Adult depression screening assessment DEPRESSION SCREENING [facility] Start: 2021 Urine microalbumin profile [facility] Start: 10-19-2021 Influenza vaccination C [facility] Start: 09-27-2021 Adult depression screening assessment DEPRESSION SCREENING [facility] Start: 05-25-2021 COVID-19 VACCINE (2 - Pfizer 3-dose series) COVID-19 VACCINE (2 - Pfizer 3-dose series) [facility] Start: 05-25-2021 COVID-19 VACCINE (2 - Pfizer series) COVID-19 VACCINE (2 - Pfizer series) [facility] Start: 2020 Anxiety Screening Anxiety Screening [facility] Start: 2020 CHLAMYDIA SCREENING (18-24) CHLAMYDIA SCREENING (18-24) [facility] Start: 2020 GC (GONORRHEA) SCREENING (18-24) GC (GONORRHEA) SCREENING (18-24) [facility] Start: 2020 HEPATITIS C SCREENING HEPATITIS C [facility] Start: 2020 Hepatitis C screening Hepatitis C [facility] Start: 2020 HIV SCREENING HIV SCREENING [facility] Start: 2020 HIV screening HIV Screening [facility] Start: 2020 Screening for Chlamy van trachomatis Chlamydia Screening () [facility] Start: 2018 Meningococcal B Vacc ine (1 of 2 - Standard) Meningococcal B Vaccine (1 of 2 - Standard) [facility] Start: 2018 Meningococcal B Vaccine: Consider Based On Risk (1 of 2 - Patient Seeks Protection) Meningococcal B Vaccine: Consider Based On Risk (1 of 2 - Patient Seeks Protection) [facility] Start: 2018 MENINGOCOCCAL CONJUG ATE (1 - 2-dose series) MENINGOCOCCAL CONJUGATE (1 - 2-dose series) [facility] Start: 2017 HPV Vaccine (1 - 3-d ose series) HPV Vaccine (1 - 3-dose series) [facility] Start: 2016 PEDS TO ADULT TRANSITION ANNUAL ASSESSMENT PEDS TO ADULT TRANSITION ANNUAL ASSESSMENT [facility] Start: 2014 PEDS TO ADULT TRANSITION INITIAL DISCUSSION PEDS TO ADULT TRANSITION INITIAL DISCUSSION [facility] Start: 2013 HPV VACCINE (1 - 2-d ose series) HPV VACCINE (1 - 2-dose series) [facility] Start: 2012 MENINGOCOCCAL B: Consider based on risk (1 of 2 - Risk Bexsero 2-dose series) MENINGOCOCCAL B: Consider based on risk (1 of 2 - Risk Bexsero 2-dose series) [facility] Start: 10-23-2011 HPV Vaccine (1 - 2-d ose series) HPV Vaccine (1 - 2-dose series) [facility] Start: 2009 Urine microalbumin profile DTAP,TDAP,TD (1 - Tdap) [facility] Start: 10-23-2007 COVID-19 VACCINE (1) COVID-19 VACCIN E (1) [facility] Start: 2002 HEPATITIS B (1 of 3 - 3-dose series) HEPATITIS B (1 of 3 - 3-dose series) [facility] Start: 2002 Hepatitis B Vaccine (1 of 3 - 3-dose series) Hepatitis B Vaccine (1 of 3 - 3-dose series) [facility] CHLAMYDIA TRACHOMATI S (GENITO/STI) CHLAMYDIA TRACHOMATIS (GENITO/STI) Lab Routine Screen for STD (sexually transmitted disease) Ordered: 10/28/2023 [facility] Comment on above: Ordered: 10/28/2023 CHLAMYDIA TRACHOMATI S (GENITO/STI) CHLAMYDIA TRACHOMATIS (GENITO/STI) Lab Routine STD exposure Ordered: 09/16/2024 [facility] Comment on above: Ordered: 09/16/2024 CHLAMYDIA TRACHOMATI S (GENITO/STI) CHLAMYDIA TRACHOMATIS (GENITO/STI) Lab Routine STD exposure Ordered: 10/06/2024 [facility] Comment on above: Ordered: 10/06/2024 Comprehensive metabo lic 2000 panel - Serum or Plasma Comprehensive metabolic panel Lab Routine 04/20/2024 12:05 PM EST [facility] [place] Work Phone: Cytology Cervical or vaginal smear or scraping study Pap Smear Pathology and Cytology Routine Well woman exam with routine gynecological exam Ordered: 10/28/2023 [facility] [place] Work Phone: Comment on above: Ordered: 10/28/2023 End: 01-08-2025 EPIL EEG LONG EPIL EEG LONG NEUROLOGY Routine Juvenile myoclonic epilepsy, not intractable, with status epilepticus (HCC) 1 Occurrences starting 01/09/2024 until 01/08/2025 [facility] Work Phone: Comment on above: 1 Occurrences starti ng 01/09/2024 until 01/08/2025 Hepatitis B virus surface Ag [Presence] in Serum or Plasma by Immunoassay Hepatitis B surface antigen Lab Routine Sexually transmitted disease exposure Ordered: 09/16/2024 [facility] Comment on above: Ordered: 09/16/2024 HIV-1/HIV-2 antigen/antibody combination immunoassay HIV-1 and HIV-2 antibodies Lab Routine Sexually transmitted disease exposure Ordered: 09/16/2024 [facility] Work Phone: Comment on above: Ordered: 09/16/2024 HSV nonspecific, IgG HSV nonspec ific, IgG Lab Routine STD exposure Sexually transmitted disease exposure Ordered: 09/16/2024 [facility] Comment on above: Ordered: 09/16/2024 HSV nonspecific, IgM HSV nonspec ific, IgM Lab Routine STD exposure Sexually transmitted disease exposure Ordered: 09/16/2024 [facility] Comment on above: Ordered: 09/16/2024 Lamotrigine measurement [facility] Lipid 1996 panel - Serum or Plasma Lipid panel Lab Routine 04/20/2024 12:05 PM EST [facility] Measurement of zonisamide [facility] Neisseria gonorrhoea e DNA [Presence] in Unspecified specimen by LINK with probe detection Neisseria gonorrhea DNA probe, direct Lab Routine Screen for STD (sexually transmitted disease) Ordered: 10/28/2023 [facility] Comment on above: Ordered: 10/28/2023 Neisseria gonorrhoea e DNA [Presence] in Unspecified specimen by LINK with probe detection Neisseria gonorrhea DNA probe, direct Lab Routine STD exposure Ordered: 09/16/2024 [facility] Comment on above: Ordered: 09/16/2024 Neisseria gonorrhoea e DNA [Presence] in Unspecified specimen by LINK with probe detection Neisseria gonorrhea DNA probe, direct Lab Routine STD exposure Ordered: 10/06/2024 [facility] Comment on above: Ordered: 10/06/2024 Patient Education [facility] Work Phone: Patient referral [facility] Work Phone: End: 03-02-2024 PSG WITH EEG (DOUBLE STUDY) PSG WITH EEG (DOUBLE STUDY) Procedures Routine Juvenile myoclonic epilepsy, not intractable, with status epilepticus (HCC) MECCA (obstructive sleep apnea) 1 Occurrences starting 02/01/2023 until 03/02/2024 [facility] Work Phone: Comment on above: 1 Occurrences starti ng 02/01/2023 until 03/02/2024 SURESWAB(R) ADVANCED VAGINITIS PLUS, TMA SURESWAB(R) ADVANCED VAGINITIS PLUS, TMA Pathology and Cytology Routine Screen for STD (sexually transmitted disease) Ordered: 10/28/2023 [facility] Comment on above: Ordered: 10/28/2023 SURESWAB(R) ADVANCED VAGINITIS PLUS, TMA SURESWAB(R) ADVANCED VAGINITIS PLUS, TMA Pathology and Cytology Routine STD exposure Ordered: 09/16/2024 [facility] Work Phone: Comment on above: Ordered: 09/16/2024 SURESWAB(R) ADVANCED VAGINITIS PLUS, TMA SURESWAB(R) ADVANCED VAGINITIS PLUS, TMA Pathology and Cytology Routine Vaginal discharge Ordered: 10/06/2024 [facility] Work Phone: Comment on above: Ordered: 10/06/2024 [facility] Immunizations Immunization Date Immunization Notes Care Provider Fa [facility] 12-11-2023 influenza virus vacc ine, unspecified formulation Yanet Brito PA-C Work Phone: [facility] 12-10-2022 influenza, injectabl e, quadrivalent, preservative free Nory Aguilar NP Work Phone: [facility] 12-10-2022 influenza virus vacc ine, unspecified formulation Carla Chowdary MD Work Phone: [facility] 07-20-2022 hepatitis B vaccine, adult dosage Nory Aguilar NP Work Phone: [facility] 06-19-2022 hepatitis B vaccine, pediatric or pediatric/adolescent dosage Nory Aguilar NP Work Phone: [facility] 09-30-2020 meningococcal oligosaccharide (groups A, C, Y and W-135) diphtheria toxoid conjugate vaccine (MCV4O) Nory Aguilar NP Work Phone: [facility] 06-14-2015 meningococcal ACWY vaccine, unspecified formulation Nory Aguilar NP Work Phone: [facility] 05-27-2015 tetanus toxoid, redu saroj diphtheria toxoid, and acellular pertussis vaccine, adsorbed Nory Aguilar NP Work Phone: [facility] 06-10-2007 diphtheria, tetanus toxoids and acellular pertussis vaccine Nory Brandon [employer]S LIBRARIAN Work Phone: [facility] 06-10-2007 measles, mumps and r ubella virus vaccine Nory Brandon SERIALS LIBRARIAN Work Phone: [facility] 06-10-2007 poliovirus vaccine, inactivated Nory Aguilar SERIALS LIBRARIAN Work Phone: [facility] 01-24-2004 diphtheria, tetanus toxoids and acellular pertussis vaccine Nory Brandon SERIALS LIBRARIAN Work Phone: [facility] 11-18-2003 haemophilus influenz ae type b vaccine, PRP-T conjugate Nory Aguilar SERIALS LIBRARIAN Work Phone: [facility] 11-18-2003 measles, mumps and r ubella virus vaccine Nory Brandon SERIALS LIBRARIAN Work Phone: [facility] 11-18-2003 pneumococcal conjuga te vaccine, 7 valent Nory Aguilar SERIALS LIBRARIAN Work Phone: [facility] 06-11-2003 diphtheria, tetanus toxoids and acellular pertussis vaccine, unspecified formulation Nory Aguilar SERIALS LIBRARIAN Work Phone: [facility] 06-11-2003 haemophilus influenz ae type b conjugate and Hepatitis B vaccine Nory Brandon SERIALS LIBRARIAN Work Phone: [facility] 06-11-2003 poliovirus vaccine, inactivated Nory Aguilar SERIALS LIBRARIAN Work Phone: [facility] 03-19-2003 diphtheria, tetanus toxoids and acellular pertussis vaccine, unspecified formulation Nory Brandon SERIALS LIBRARIAN Work Phone: [facility] 03-19-2003 haemophilus influenz ae type b vaccine, conjugate unspecified formulation Nory Aguilar SERIALS LIBRARIAN Work Phone: [facility] 03-19-2003 poliovirus vaccine, inactivated Nory Aguilar SERIALS LIBRARIAN Work Phone: [facility] 2002 DTaP-hepatitis B and poliovirus vaccine Nory Aguilar SERIALS LIBRARIAN Work Phone: [facility] 2002 haemophilus influenz ae type b vaccine, PRP-T conjugate Nory Aguilar SERIALS LIBRARIAN Work Phone: [facility] 2002 pneumococcal conjuga te vaccine, 7 valent Nory Aguilar SERIALS LIBRARIAN Work Phone: [facility] 2002 hepatitis B vaccine, pediatric or pediatric/adolescent dosage Nory Aguilar NP Work Phone: [facility] Healthcare Payers Date Payer Category Payer Self-pay 2021 [facility] [id number] [id number] 2021 Unknown [id number] 2020 Private Health Insurance EARLINE Jean [facility] [id number] 2020-Present [phone] [address] [place] [address] O [id number] 2019 Unknown [id number] .[id number] 2019 Private Health Insurance [id number] 2019 Unknown [id number] 1.13.159.2 .[id number] 2019 Private Health Insurance [id number] 2002 Unknown [id number] 2.16.840.1.457650.3.579.2 .1259 2002 Unknown [id number] 2.16.840.1.601737.3.579.2 .1259 2002 Unknown [id number] 2.16.840.1.961321.3.579.2 .196 2002 Unknown [id number] 2.16.840.1.443477.3.579.2 .196 2002 Unknown [id number] 2.16.840.1.935056.3.579.2 .1259 2002 Unknown [id number] 2.16.840.1.213817.3.579.2 .1259 2002 Unknown [id number] 2.16.840.1.994733.3.579.2 .1259 2002 Unknown [id number] 2.16.840.1.635341.3.579.2 .1259 2002 Unknown [id number] 2.16.840.1.731095.3.579.2 .1259 2002 Unknown [id number] 2.16.840.1.323849.3.579.2 .1259 2002 Unknown [id number] 2.16840.1.457632.3.579.2 .1259 Unknown [id number] 2.16.840.1.399765.3.579.2 .531 Unknown [id number] 2.16.840.1.846769.3.579.2 .531 Unknown [id number] 2.16.840.1.263365.3.579.2 .531 Unknown [id number] 2.16840.1.903776.3.579.2 .531 Unknown [id number] 2.16840.1.966807.3.579.2 .531 Unknown [id number] 2.16840.1.408231.3.579.2 .531 Unknown [id number] 2.16840.1.855686.3.579.2 .531 Social History Date Type Detail Facility Tobacco smoking status VTIS Tobacco smoking consumption unknown [facility] Start: 2000 Sex Assigned At Female C [facility] Start: 06-06-2021 End: 01-25-2023 Tobacco smoking status VTIS Never smoked tobacco [facility] Start: 06-06-2021 End: 01-25-2023 Tobacco use and exposure Smokeless tobacco non-user [facility] Start: 05-27-2021 End: 06-06-2021 Exposure to SARS-CoV-2 (event) Not sure [facility] Start: 06-06-2021 End: 04-13-2024 History of Social function [facility] Start: 06-06-2021 End: 04-13-2024 Tobacco use panel [facility] Adult Depression Screening Assessment [address] [facility] Start: 03-10-2021 Gender identity Identifies as female gender (finding) [facility] Start: 03-10-2021 Sexual orientation Heterosexual (fin ding) [facility] Start: 10-28-2023 End: 06-18-2024 Alcoholic beverage intake Current drinker of alcohol (finding) [facility] Start: 01-25-2023 Alcohol Comment caffeine intak e: 2 sodas daily [facility] Start: 2002 Sex assigned at Not on file [facility] Start: 03-04-2024 End: 05-19-2024 Sex Female (finding) [facility] How often to you hav e a drink containing alcohol? 2-4 times a month [facility] How many standard drinks containing alcohol do you have on a typical day? 3 or 4 [facility] How often do you hav e 6 or more drinks on 1 occasion? Monthly [facility] NEGATED: Highlighted rowStart: NELDAF History of tobacco use Passive smoker [facility] NEGATED: Highlighted row [facility] Clinical Notes 05-30-2021 to 10-13-2024 CESIA [...] folic acid (Folvite) 1 MG tablet HYDROcodone-acetaminophen ([place]) 5-325 MG tablet 1 tablet, Oral, Every [...] of: CESIA Esquivel documented in this encounter [facility] 10-08-2024 Instructions CESIA Esquivel - 10/08/2024 2:09 PM EDT Patient called for pain medication due to current outbreak documented in this encounter [facility] 10-06-2024 History of Presen t illness [...] of: CESIA Esquivel documented in this encounter [facility] 09-16-2024 History of Presen t illness [...] nursing note reviewed. Exam conducted with a casino worker present. Vitals: Estimated body mass index is [...] by Andreas Samson NP on behalf of: Adnreas Samson NP documented in this encounter [facility] 09-07-2024 Note Patient Education Ma terials Name: Quentin Bird Current Date: 09/07/2024 14:14:47 [place] : 2000 The following sheet(s) are the Patient Education Leaflets for Quentin Bird [facility] 08-27-2024 Evaluation note Diagnosis Onset Date Resolution RAHEEL (juvenile myoclonic epilepsy) acute August 27 12:29pm [facility] Work Phone: 1(631) 885-511407-09-2025 History of Present illness Narrative* Andreas Samson [...] Dementia Paternal Grandmother Cancer Paternal Grandfather Ashutosh iBrd Lung cancer Paternal Grandfather Ashutosh Marge SURGICAL [...] nursing note reviewed. Exam conducted with a casino worker present. Vitals: Estimated body mass index is [...] of: Jonathan Elizabeth DO documented in this encounterWashington County Memorial HospitalZlhkswcqrg12-43-0528 Telephone encounter Note* Telephone Encounter - Sammi Escalante APRN.CNP - 08/18/2024 1:17 PM EDT The following approved medication requests have been transmitted electronically. Requested Prescriptions Signed Prescriptions Disp Refills zonisamide (ZONEGRAN) 100 mg capsule 270 capsule 0 Sig: TAKE 3 CAPSULES BY MOUTH AT BEDTIME Authorizing Provider: SAMMI ESCALANTE APRN.CNP [facility]07-01-2025 Miscellaneous Notes* Telephone Encounter - Sammi Escalante [...] Number: electronic [facility]acy [facility] Number: [phone] Generic/ brand: Generic 30 or 90 day supply requested: 90 Last appointment: 01/09/24 Next Appointment: none Patient of Dr. Abraham Bird [id number] [address] [facility] [address] documented [facility] [address] [facility] Telephone encounter Note * Telephone Encounter - Coco Deanna Bassett - 08/18/2024 1:04 PM EDT Prescription Refill: Requested by: pharmacy Please E-Scribe Caller Contact Number: electronic [facility]acy [facility]: [facility] Number: [phone] Generic/ brand: Generic 30 or 90 day supply requested: 90 Last appointment: 01/09/24 Next Appointment: none Patient of Dr. Abraham Bird [id number] [address] [facility] [address] [facility]05-01-2025 History of Present illness Narrative* Gabi Mcclure [...] unaware of this event. 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 LUE Strength deltoid , biceps , triceps , wrist extensors , wrist flexor , automatic steel tie adjuster strength 5/5. RLE Strength illopsoas, quadriceps, tibialis [...] reflex 2+ . Aguilar's sign negative. Coordination: Tfsevs-qz-eguq testing and rapid alternating movements are normal Gait: Normal Review and summary of old records: CT of the brain on 09/10/2020: No acute intracranial process Review of epilepsy notes from [facility] in December of 2023 note the patient [...] myoclonic epilepsy. The patient has been seen [facility]. She was initially placed on Vimpat. [...] as previously noted to the patient from [facility] SEIZURE PRECUATIONS to follow for 6 [...] of mental health issues documented in this encounterWashington County Memorial HospitalLgylttliwm16-82-9534 Telephone encounter Note* Telephone Encounter - Yanet Brito PA-C - 05/22/2024 12:28 PM EDT The following approved medication requests have been transmitted electronically. Requested Prescriptions Signed Prescriptions Disp Refills zonisamide (ZONEGRAN) 100 mg capsule 270 capsule 0 Sig: Take 3 capsules by mouth daily at bedtime. Authorizing Provider: YANET BRITO PA-C [facility]04-04-2025 Miscellaneous Notes* Telephone Encounter - Yanet Brito [...] E-Scribe Caller Contact Number: [facility] Number: [phone] Generic/ brand: Generic 30 or 90 day supply requested: 90 Last appointment: 01/09/24 Next Appointment: none Patient of Dr. Abraham Bird [id number] [address] [facility] [address] documented [facility] [address] [facility]04[facility]2025 Telephone encounter Note * Telephone Encounter - Deanna Garcia - 05/22/2024 11:08 AM EDT Prescription Refill: Requested by: patient Please E-Scribe Caller Contact Number: [facility] Number: [phone] Generic/ brand: Generic 30 or 90 day supply requested: 90 Last appointment: 01/09/24 Next Appointment: none Patient of Dr. Abraham Huizar Rodo Bird [id number] [address] [facility] [address] [facility]02-24-2025 History of Present illness Narrative* Nory Aguilar, SERIALS LIBRARIAN - 04/13/2024 4:00 PM EST Images from [...] is getting another opinion for neurology at [facility] and has an appointment in May. [...] Insecurity: No Food Insecurity (01/19/2023) [facility] Within the past 12 months [...] printed for patient, plans to do at [facility]. Discussed routine screenings and patient is [...] given to patient to get done at [facility]. Screening for deficiency anemia - CBC; [...] (around 04/13/2025) for wellness. documented in this encounterWashington County Memorial HospitalSgowjqnrxu37-11-1863 Telephone encounter Note* Telephone Encounter - Sammi [...] 150 mg twice daily. Sammi Escalante APRN.CNP [facility]01-16-2025 Miscellaneous Notes* Telephone Encounter - Sammi Escalante [...] review. Asuncion Garcia RN documented in this encounterMer[facility]01[facility]-2025 Telephone encounter Note * Telephone Encounter - [...] yes Routed for review. Asuncion Garcia RN [facility]01-15-2025 Radiology [facility] [place] [address] [place] [address] CT Scan Report Signed Patient: Quentin Bird MR#: [id number] 44 : 2000 Acct:[id number] Age/Sex: 23 / F ADM Date: 5 Loc: ER Room: Type: [facility] ER Attending Dr: Copies to: Jimmy [...] Tomas Graham M.D.03/04/2024 10:41 AM Dictation Location: [facility]-- Transcribed By: [facility] 03/04/24 1041 Dictated By: Tomas Graham MD 03/04/24 1039 Signed By: 03/04/24 1041 [facility] Work Phone: [phone]) [phone] Telephone encounter Note* Telephone Encounter - Sammi [...] with 25 mg tablet. Sammi Escalante APRN.CNP [facility]01-15-2025 Miscellaneous Notes* Telephone Encounter - Sammi Escalante [...] Take with 25 mg tablet. Sammi Escalante APRN.ERADICATOR * Telephone Encounter - Asuncion Garcia RN - 03/04/2024 8:56 AM EST Pt is requesting refill for LTG 125/125. MC message routed for review. Asuncion Garcia RN documented in [facility]25 Telephone encounter Note * Telephone Encounter - Asuncion Garcia RN - 03/04/2024 8:56 AM EST Pt is requesting refill for LTG 125/125. MC message routed for review. Asuncion Garcia RN [facility]12-26-2024 Telephone encounter Note* Telephone Encounter - Joon Melton RN - 02/13/2024 3:55 PM EST I spoke with the pharmacist at [facility], titration schedule reviewed. Joon Melton RN [facility]12-26-2024 Miscellaneous Notes* Telephone Encounter - Joon Vargas RN - 02/13/2024 3:55 PM EST I spoke with the pharmacist at [facility], titration schedule reviewed. Joon Melotn, BRAYDEN * Telephone Encounter - Deanna Garcia - 02/13/2024 2:18 PM EST Medication Concern Person Calling Umesh Moon Name of medication Vimpat Concern with medication Pharmacy needs clarification on SIG. Patient of Dr. De Leon documented in [facility]12[facility] Telephone encounter Note * Telephone Encounter - Deanna Garcia - 02/13/2024 2:18 PM EST Medication Concern Person Calling Umesh Moon Name of medication Vimpat Concern with medication Pharmacy needs clarification on SIG. Patient of Dr. De Leon [facility]12-24-2024 Telephone encounter Note* Telephone Encounter - Mishel Carias RN - 02/11/2024 4:23 PM EST Spoke with [facility] They have the RX and sending to the pharmacist to review since a controled medication and made it ahigh priority Mishel Carias RN [facility]12-24-2024 Miscellaneous Notes* Telephone Encounter - Mishel Carias RN - 02/11/2024 4:23 PM EST Spoke with [facility] They have the RX and sending to the pharmacist to review since a controled medication and made it ahigh priority Mishel Carias RN documented in this [facility]Mer[facility]12[facility]24 Telephone encounter Note * Telephone Encounter - [...] STOP LCM Authorizing Provider: ROSELYN MCCULLOUGH APRN.CNP [facility]12-23-2024 Miscellaneous Notes* Telephone Encounter - Roselyn Mccullough [...] EST Medication Concern Person Calling: Fax from [facility] Phone #: [phone] / Name of medication: Lacosamide/Vimpat - 50MG Concern with medication: Clarification request for dosage instructions Directions are missing on the original prescription dated 02/07/[address] De Leon Forwarded to nurse. documented in this encounterMer[facility]12[facility]2024 Telephone encounter Note * Telephone Encounter - Asuncion Garcia RN - 02/10/2024 10:25 AM EST Images from the original note were not included. Prescription for LCM 50mg tablet. [facility]'s response: Routed for new prescription. Asuncion Garcia RN [facility]12-23-2024 Telephone encounter Note* Telephone Encounter - Nahomy Frye - 02/10/2024 9:45 AM EST Medication Concern Person Calling: Fax from [facility] Phone #: [phone] / Name of medication: Lacosamide/Vimpat - 50MG Concern with medication: Clarification request for dosage instructions Directions are missing on the original prescription dated 02/07/[address] De Leon Forwarded to nurse. [facility]12-20-2024 Telephone encounter Note* Telephone Encounter - Hosea Ku PA-C - 02/07/2024 4:35 PM EST The following approved medication requests have been transmitted electronically. Requested Prescriptions Signed Prescriptions Disp Refills lacosamide (VIMPAT) 50 mg tab 168 tablet 0 Sig: Please follow wean schedule provided via [facility] Authorizing Provider: HOSEA KU PA-C [facility]12-20-2024 Miscellaneous Notes* Telephone Encounter - Hosea Ku PA-C - 02/07/2024 4:35 PM EST The following approved medication requests have been transmitted electronically. Requested Prescriptions Signed Prescriptions Disp Refills lacosamide (VIMPAT) 50 mg tab 168 tablet 0 Sig: Please follow wean schedule provided via [employer] Authorizing Provider: HOSEA KU PA-C * Telephone Encounter - Hosea Ku PA-C - 02/07/2024 11:56 AM EST RX corrected The following approved medication requests have been transmitted electronically. Requested Prescriptions Signed Prescriptions Disp Refills lacosamide (VIMPAT) 50 mg tab 168 tablet 0 Sig: Please follow wean schedule provided via [employer] Authorizing Provider: HOSEA KU PA-C * Telephone Encounter - Asuncion Garcia RN - 02/07/2024 11:43 AM EST Prescription for LCM 50mg tablets is unclear. Pharmacy asking to verify instructions and provide the duration (day supply) that 168 tablets are expected to last the pt. Routed. Asuncion Garcai RN * Telephone Encounter - Ermelinda Dangelo - 02/07/2024 10:31 AM EST Form received: From (agency / facility / parent): [facility] mobile phone salesperson (if given): Phone #: [phone] Fax # : [phone] Email: Information requested: Physicians statement Patient of Dr. De Leon Forwarded to Nurse documented in this encounterMer[facility]12[facility]-2024 Telephone encounter Note * Telephone Encounter - Asuncion Garcia RN - 02/07/2024 4:30 PM EST Lab order form signed by Hosea Ku via [employer]. Lab order form sent to [facility] [employer] (fax #: [phone]) via [employer]. Confirmation received. Asuncion Garcia RN [facility]12-20-2024 Miscellaneous Notes* Telephone Encounter - Asuncion Garcia RN - 02/07/2024 4:30 PM EST Lab order form signed by Hosea Ku via [employer]. Lab order form sent to [facility] [employer] (fax #: [phone]) via [employer]. Confirmation received. Asuncion Garcia RN * Telephone Encounter - Asuncion Garcia RN - 02/07/2024 11:51 AM EST Lab order form sent to Hosea Ku to review and sign via [employer]. Asuncion Garcia RN * Telephone Encounter - [...] review. Asuncion Garcia RN documented in this encounterMer[facility]12[facility]2024 Telephone encounter Note * Telephone Encounter - [...] prescription at the pharmacy Hosea Ku PA-C [facility]12-20-2024 Miscellaneous Notes* Telephone Encounter - Hosea Ku [...] patient Please Call in Caller Contact Number: [phone] (home) [facility] Number: [phone] Generic/ brand: generic 30 or 90 day supply requested: 90 Last appointment: Next Appointment: none Patient of Dr. abraham Bird [phone] [address] [facility] [address] New pharmacy above documented in [facility] encounter[facility]12[facility] Telephone encounter Note * Telephone Encounter - Sigrid Casarez - 02/07/2024 3:15 PM EST Prescription Refill: Requested by: patient Please Call in Caller Contact Number: [phone] (home) [facility] Number: [phone] Generic/ brand: generic 30 or 90 day supply requested: 90 Last appointment: Next Appointment: none Patient of Dr. abraham Bird [phone] [address] [facility] [address] New pharmacy above [facility]12-20-2024 Telephone encounter Note* Telephone Encounter - Hosea Ku PA-C - 02/07/2024 11:56 AM EST RX corrected The following approved medication requests have been transmitted electronically. Requested Prescriptions Signed Prescriptions Disp Refills lacosamide (VIMPAT) 50 mg tab 168 tablet 0 Sig: Please follow wean schedule provided via [facility] Authorizing Provider: HOSEA KU PA-C [facility]12-20-2024 Telephone encounter Note* Telephone Encounter - Asuncion Garcia RN - 02/07/2024 11:51 AM EST Lab order form sent to Hosea Ku to review and sign via [employer]. Asuncion Garcia RN [facility]12-20-2024 Telephone encounter Note* Telephone Encounter - Asuncion Garcia RN - 02/07/2024 11:43 AM EST Prescription for LCM 50mg tablets is unclear. Pharmacy asking to verify instructions and provide the duration (day supply) that 168 tablets are expected to last the pt. Routed. Asuncion Garcia RN [facility]12-20-2024 Telephone encounter Note* Telephone Encounter - Ermelinda Dangelo - 02/07/2024 10:31 AM EST Form received: From (agency / facility / parent): [facility] mobile phone salesperson (if given): Phone #: [phone] Fax # : [phone] Email: Information requested: Physicians statement Patient of Dr. De Leon Forwarded to Nurse [facility]12-19-2024 Telephone encounter Note* Telephone Encounter - Hosea Ku PA-C - 02/06/2024 8:28 AM EST Order for ZNS level placed Hosea Ku PA-C' [facility]12-19-2024 Telephone encounter Note* Telephone Encounter - [...] Lacosamide provided in MyChart Hosea Ku PA-C [facility]12-18-2024 Telephone encounter Note* Telephone Encounter - Hosea Ku PA-C - 02/05/2024 1:57 PM EST MC message sent to patient. Waiting to confirm pharmacy before I send RX Hosea Ku PA-C [facility]12-18-2024 Telephone encounter Note* Telephone Encounter - Asuncion Garcia RN - 02/05/2024 10:58 AM EST Response from Hosea Kings: Can you please verify what dose of LTG she is currently taking? Asuncion Garcia RN [facility]12-17-2024 Telephone encounter Note* Telephone Encounter - [...] message routed for review. Asuncion Beitler, RN [facility]12-13-2024 Telephone encounter Note* Telephone Encounter - Dewayne [...] ifmyoclonus occurs. Authorizing Provider: DEWAYNE OSORIO PA-C [facility]12-13-2024 Miscellaneous Notes* Telephone Encounter - Dewayne [...] Contact Number: my chart Pharmacy Name: [facility] Pharmacy Number: [id number] Generic/ brand: generic 30 or 90 day supply requested: 90 Last appointment: 01/09/24 Next Appointment: none Patient of Dr. De Leon documented in this encounterMer[facility] Telephone encounter Note * Telephone Encounter - Aislinn Lee - 01/31/2024 2:17 PM EST Prescription Refill: Requested by: patient Please E-Scribe Caller Contact Number: my chart Pharmacy Name: [facility] Pharmacy Number: [id number] Generic/ brand: generic 30 or 90 day supply requested: 90 Last appointment: 01/09/24 Next Appointment: none Patient of Dr. De Leon [facility]11-22-2024 Miscellaneous Notes* Telephone Encounter - Asuncion Garcia RN - 01/10/2024 2:24 PM EST Pt will be going to [facility] [employer] (fax #: [phone]). Lab order form sent to [facility] (fax #: [phone]) via [employer]. Confirmation received. Asuncion Garcia RN * Telephone Encounter - Asuncion Garcia RN - 01/10/2024 11:28 AM EST Lab order form signed by Mario Corona via [employer]. Leads Direct message sent to pt, in this encounter, to confirm laboratory. Asuncion Garcia RN * Telephone Encounter - Asuncion Garcia RN - 01/09/2024 4:32 PM EST Lab order form sent to Mario Corona to review and sign via [employer]. Asuncion Garcia RN * Telephone Encounter - Mario Corona PA-C - 01/09/2024 4:29 PM EST Lab orders placed. Mario Corona PA-C * Telephone Encounter - Asuncion Garcia RN - 01/09/2024 4:20 PM EST Images from the original note were not included. Daisy De Leon, DO Asuncion Garcia RN Can we please send an order for trough lamotrigine level, CBC, CMP to [facility]? To be drawn after lamotrigine titration complete. Routed for lab orders. Asuncion Garcia RN documented in this encounterMer[facility]11-[facility]24 Telephone encounter Note * Telephone Encounter - Asuncion Garcia RN - 01/10/2024 2:24 PM EST Pt will be going to [facility] (fax #: [phone]). Lab order form sent to [facility] (fax #: [phone]) via [employer]. Confirmation received. Asuncion Garcia RN [facility]11-22-2024 Telephone encounter Note* Telephone Encounter - Asuncion Garcia RN - 01/10/2024 11:28 AM EST Lab order form signed by Mario Corona via [employer]. MC message sent to pt, in this encounter, to confirm laboratory. Asuncion Garcia RN [facility]11-21-2024 Telephone encounter Note* Telephone Encounter - Asuncion Garcia RN - 01/09/2024 4:32 PM EST Lab order form sent to Mario Corona to review and sign via [employer]. Asuncion Garcia RN [facility]11-21-2024 Telephone encounter Note* Telephone Encounter - Mario Corona PA-C - 01/09/2024 4:29 PM EST Lab orders placed. Mario Corona PA-C [facility]11-21-2024 Telephone encounter Note* Telephone Encounter - Asuncion Garcia RN - 01/09/2024 4:20 PM EST Images from the original note were not included. Daisy De Leon DO Beitler, Nina, RN Can we please send an order for trough lamotrigine level, CBC, CMP to [facility]? To be drawn after lamotrigine titration complete. Routed for lab orders. Asuncion Garcia RN [facility]11-21-2024 Instructions* Patient Instructions* Daisy De Leon DO [...] meet with your doctor. documented in this encounterMercy Health St. [facility]11-21-2024 NoteHNO ID: [id number] Author: DAISY DE LEON DO Service: ? Author Type: Physician Type: Progress Notes Filed: 01/09/2024 15:45 Note Text: [facility] Patient Name: Quentin Bird Date of : 2000 ESTABLISHED EPILEPSY CLINIC NOTE 01/09/2024 2:40 PM Reason for Visit: Established Patient and Follow Up Clinical Summary: Ms. Bird is a 23 year old female seen in [facility]psy [facility]. Classification Summary HISTORY OF [...] have seizure. 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 Currently holding [...] Interval: Hx of generalized (more content not included)...[facility] 01-09-2024 History of Present illness Narrative* Daisy De Leon DO - 01/09/2024 2:35 PM EST [facility] Patient Name: Quentin Bird Date of : 2000 ESTABLISHED EPILEPSY CLINIC NOTE 01/09/2024 2:40 PM Reason for Visit: Established Patient and Follow Up Clinical Summary: Ms. Bird is a 23 year old female seen in [facility]psy [facility]. 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 SOCIAL HISTORY: -Lives in [place], [place] -Patient lives alone? -Vocation: -Education: Some [...] which included: preparing to see the patient [id number] patient care completing clinical documentation obtaining and/or reviewing separately obtained history performing a medically appropriate examination counseling and educating the patient/family/caregiver ordering medications, tests, or procedures Daisy De Leon DO cc: Primary Care Physician: No primary care provider on file. No primary provider on file. Referring: Patient: Ms. Quentin Covington3 [facility] [id number] documented in [address] encounterMer[facility]11-04-2024 Telephone encounter Note * Telephone Encounter - [...] yes Routed for review. Asuncion Garcia RN [facility]11-04-2024 Miscellaneous Notes* Telephone Encounter - Asuncion Garcia [...] review. Asuncion Garcia RN documented in this encounterMercy Health St. [facility]10-31-2024 Telephone encounter Note * Telephone Encounter - Asuncion Garcia RN - 12/19/2023 11:16 AM EDT Images from the original note were not included. Pharmacy called and made aware. Asuncion Garcia RN [facility]10-31-2024 Miscellaneous Notes* Telephone Encounter - Asuncion Garcia RN - 12/19/2023 11:16 AM EDT Images from the original note were not included. Pharmacy called and made aware. Asuncion Garcia RN * Telephone Encounter - Asuncion Garcia RN - 12/19/2023 11:02 AM EDT PA done via CMM. (Hunter: [id number]) CESIA Rx #: [id number] Status: sent to plan. Asuncion Garcia RN * Telephone Encounter - Joellen Breaux - 12/19/2023 8:00 AM EDT Prior Authorization Needed: Received by: Fax Requested by (pharmacy name): [facility] Phone number: [phone] Name of medication: Nayzilam Strength and dosage: 5mgSig: Use 1 spray in one nostril as needed for seizures lasting longer than 2 minutes. Insurance company name and phone #: CMM HUNTER: [id number] Patient ID: PCN #: BIN#: Group #: Patient of Dr. De Leon Forwarded to nurse. documented in this encounterMercy Health St[facility]10-31-2024 Telephone encounter Note * Telephone Encounter - Asuncion Garcia RN - 12/19/2023 11:02 AM EDT PA done via CMM. (Hunter: [id number]) CESIA Rx #: [id number] Status: sent to plan. Asuncion Garcia RN [facility]10-31-2024 Telephone encounter Note* Telephone Encounter - Meera [...] ifmyoclonus occurs. Authorizing Provider: MEERA SILVA PA-C [facility]10-31-2024 Miscellaneous Notes* Telephone Encounter - Meera Silva [...] patient Please Call in Caller Contact Number: [phone] (home) Pharmacy Name: [facility]acy Number: [id number] Generic/ brand: generic 30 or 90 day supply requested: 30 day supply Last appointment: 11/13/23 Next Appointment: NONE Patient of Dr. De Leon [facility] order [facility] documented in this encounterMer[facility] Health St[facility]10-31-2024 Telephone encounter Note * Telephone Encounter - Sigrid Casarez - 12/19/2023 10:47 AM EDT Prescription Refill: PATIENT OUT OF MEDICATION Requested by: patient Please Call in Caller Contact Number: [phone] (home) Pharmacy Name: [facility]acy Number: [id number] Generic/ brand: generic 30 or 90 day supply requested: 30 day supply Last appointment: 11/13/23 Next Appointment: NONE Patient of Dr. De Leon Mail order [facility]10-31-2024 Telephone encounter Note* Telephone Encounter - Joellen Breaux - 12/19/2023 8:00 AM EDT Prior Authorization Needed: Received by: Fax Requested by (pharmacy name): [facility] Phone number: [phone] Name of medication: Nayzilam Strength and dosage: 5mgSig: Use 1 spray in one nostril as needed for seizures lasting longer than 2 minutes. Insurance company name and phone #: CMM HUNTER: [id number] Patient ID: PCN #: BIN#: Group #: Patient of Dr. De Leon Forwarded to nurse. [facility]10-30-2024 Telephone encounter Note* Telephone Encounter - Meera Silva PA-C - 12/18/2023 10:06 AM EDT [facility] website checked and validated. All prescriptions have [...] and tolerability. Authorizing Provider: MEERA SILVA PA-C [facility]10-30-2024 Miscellaneous Notes* Telephone Encounter - Meera [...] Please E-Scribe Caller Contact Number: Pharmacy Name: [facility] Pharmacy Number: [phone] Generic/ brand: 30 or 90 day supply requested: 90 Last appointment: 11-13-2023 Next Appointment: NONE Patient of Dr. De Leon documented in this encounterMer[facility]10-30-2024 Telephone encounter Note * Telephone Encounter - Jeniffer Austin - 12/18/2023 10:01 AM EDT Prescription Refill: Requested by: patient Please E-Scribe Caller Contact Number: Pharmacy Name: [facility] Pharmacy Number: [id number] Generic/ brand: 30 or 90 day supply requested: 90 Last appointment: 11-13-2023 Next Appointment: NONE Patient of Dr. De Leon [facility]10-28-2024 History of Present illness Narrative* CESIA Esquivel [...] behalf of: CESIA Esquivel documented in this encounterWashington County Memorial HospitalFlzjarxeme57-25-7710 Telephone encounter Note* Telephone Encounter - Asuncion Garcia RN - 11/19/2023 1:07 PM EDT BMV form signed by Dr. De Leon via [employer]. Copies sent to [employer], pt e-mail and BMV special unit via [employer]. Asuncion Garcia RN [facility]10-01-2024 Miscellaneous Notes* Telephone Encounter - Asuncion Garcia RN - 11/19/2023 1:07 PM EDT BMV form signed by Dr. De Leon via [employer]. Copies sent to [employer], pt e-mail and BMV special unit via [employer]. Asuncion Garcia RN * Telephone Encounter - Asuncion Garcia RN - 11/19/2023 12:49 PM EDT BMV form received. Onset- 4 years (2019) Last SZ- 09/08/2023 BMV form is for ID purposes only. BMV form sent to Dr. De Leon to review and sign via [employer]. Asuncion Garcia RN * Telephone Encounter - Joellen Breaux - 11/19/2023 9:08 AM EDT Form received: From (agency / facility): BMV mobile phone salesperson (if given): Quentin Bird Phone #: [phone] (home) Fax # : [phone] Information requested: Request for physician statement Patient of Dr. De Leon Forwarded to nurse. documented in this encounterMercy Health St[facility]10-01-2024 Telephone encounter Note * Telephone Encounter - Asuncion Garcia RN - 11/19/2023 12:49 PM EDT BMV form received. Onset- 4 years (2019) Last SZ- 09/08/2023 BMV form is for ID purposes only. BMV form sent to Dr. De Leon to review and sign via [employer]. Asuncion Garcia RN [facility]10-01-2024 Telephone encounter Note* Telephone Encounter - Joellen Breaux - 11/19/2023 9:08 AM EDT Form received: From (agency / facility): BMV mobile phone salesperson (if given): Quentin Bird Phone #: [phone] (home) Fax # : [phone] Information requested: Request for physician statement Patient of Dr. De Leon Forwarded to nurse. [facility]09-26-2024 Telephone encounter Note* Telephone Encounter - Asuncion Garcia RN - 11/14/2023 8:42 AM EDT BMV form received, pt did not fill out top portion and sign. MC message sent to pt, in this encounter. Asuncion Garcia RN [facility]09-26-2024 Miscellaneous Notes* Telephone Encounter - Asuncion Garcia RN - 11/14/2023 8:42 AM EDT BMV form received, pt did not fill out top portion and sign. MC message sent to pt, in this encounter. Asuncion Garcia RN documented in this encounterMercy Health St. [facility]09-25-2024 Instructions* Patient Instructions* Daisy De Leon, - [...] meet with your doctor. documented in this encounterMercy Health St. [facility]09-25-2024 NoteHNO ID: [id number] Author: DAISY DE LEON DO Service: ? Author Type: Physician Type: Progress Notes Filed: 11/19/2023 09:49 Note Text: [facility] [place] [facility] Patient Name: Quentin BANEGAS Date of : 2000 INITIAL EPILEPSY CLINIC NOTE 11/13/2023 3:20 PM CHIEF COMPLAINT: New Patient (New NI Patient ) HISTORY OF PRESENT ILLNESS Ms. Bird is a 23 year old female seen in [facility] Epilepsy [facility] Outpatient Clinic for initial [...] have seizure. 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 Currently holding [...] She is currently seeing a PCP at [facility]. Total # of Current Anti-seizure Medications: [...] Frequency: Last occ (more content not included)... [facility]09-25-2024 History of Present illness Narrative* Daisy De Leon, - 11/13/2023 3:43 PM EDT [facility] [place] [facility] Patient Name: Quentin BANEGAS Date of : 2000 INITIAL EPILEPSY CLINIC NOTE 11/13/2023 3:20 PM CHIEF COMPLAINT: New Patient (New NI Patient ) HISTORY OF PRESENT ILLNESS Ms. Bird is a 23 year old female seen in [facility] Epilepsy [facility] Outpatient Clinic for initial [...] have seizure. 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 Currently holding [...] She is currently seeing a PCP at [facility]. Total # of Current Anti-seizure Medications: [...] - Seizure risk factors: Brain Tumor No DISPATCH SUPERVISOR Infections No Developmental Delay No Family history [...] myoclonic epilepsy, not intractable, with status epilepticus ([facility]) 09/28/2020 Recurrent major depression in partial remission ([facility]) 09/28/2020 No past surgical history on file. No family history on file. SOCIAL HISTORY: -Lives in [place], [place] -Patient lives alone? -Vocation: Working three [...] to see the patient completing clinical documentation [id number] patient care obtaining and/or reviewing separately obtained history performing a medically appropriate examination counseling and educating the patient/family/caregiver ordering medications, tests, or procedures Daisy De Leon DO cc: Primary Care Physician: No primary care provider on file. No primary provider on file. Referring: Patient: Ms. Quentin Bird [address] [id number] documented in this encounterMercy Health St. [facility]09-[facility]-2024 History of Present illness Narrative* Lotus Philip [...] nursing note reviewed. Exam conducted with a casino worker present. Vitals: Estimated body mass index is [...] of: Jonathan Elizabeth DO documented in this encounterWashington County Memorial HospitalJuodthwxdk08-19-5298 Telephone encounter Note* Telephone Encounter - Sommer Carrillo RN - 09/16/2023 11:08 AM EDT Spoke with PA department, no PA is needed. Sommer Carrillo RN [facility]07-29-2024 Miscellaneous Notes* Telephone Encounter - Sommer Carrillo RN - 09/16/2023 11:08 AM EDT Spoke with PA department, no PA is needed. Sommer Carrillo RN * Telephone Encounter - Joellen Breaux - 09/16/2023 10:37 AM EDT Prior Authorization Needed: Received by: Fax Requested by (pharmacy name): [facility] Phone number: [phone] Name of medication: LCM Strength and dosage: 200mg Take 1 tablet by mouth two times a day. 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 Insurance company name and phone #: [employer] HUNTER: [id number] Patient ID: PCN #: BIN#: Group #: Patient of Dr. Simms Forwarded to nurse. documented in this encounterMer[facility] Health St[facility]07-29-2024 Telephone encounter Note * Telephone Encounter - Joellen Breaux - 09/16/2023 10:37 AM EDT Prior Authorization Needed: Received by: Fax Requested by (pharmacy name): [facility] Phone number: [phone] Name of medication: LCM Strength and dosage: 200mg Take 1 tablet by mouth two times a day. 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 Insurance company name and phone #: [employer] HUNTER: [id number] Patient ID: PCN #: BIN#: Group #: Patient of Dr. Simms Forwarded to nurse. [facility]07-23-2024 Telephone encounter Note* Telephone Encounter - Mishel James Rn, RN - 09/10/2023 11:31 AM EDT Spoke to Ms. Bird and advised per Dr. Simms. She verbalized understanding and agrees with plan. Please file pending orders (extra pill for myoclonus added to script). Thank you. Routed to Dr. Holland James RN [facility]07-23-2024 Miscellaneous Notes* Telephone Encounter - Mishel JamesRn)BRAYDEN [...] Dr. Holland James RN documented in this encounterMercy Health St. [facility]07-22-2024 Telephone encounter Note * Telephone Encounter - Carla Rico MD - 09/09/2023 6:11 PM EDT We can increase the Vimpat to 200mg Po BID. Please discuss missing doses of medication with the patient. A pill box is important to keep track of the medications. Thanks Carla Chowdary MD [facility]07-22-2024 Telephone encounter Note* Telephone Encounter - Mishel James Rn, RN - 09/09/2023 1:00 PM EDT Neuro Peds Epilepsy Care Coordination Post-seizure/Medication Concerns/Side Effects Date of service : September 09, 2023 Quentin Bird is a 22 year old. Last seen by Dr. Smims in office visit on 08/13/2023. Now ~ [...] recommendation Routed to Dr. Holland James RN [facility]06-25-2024 Instructions* Patient Instructions* Carla Rico MD - [...] well. Carla Chowdary MD documented in this encounterMercy Health St. [facility]06-25-2024 NoteHNO ID: [id number] Author: CARLA RICO MD Service: ? Author Type: Physician Type: Progress Notes Filed: 08/13/2023 19:51 Note Text: [facility] Section of Pediatric Epilepsy/Neurology Epilepsy Center, [facility] [place] Date of Service: 02/01/2023 RETURN VISIT NOTE HISTORY SINCE LAST VISIT: The patient has returned for follow-up regarding well controlled RAHEEL. Possible family history of RAHEEL SERIALS LIBRARIANBri This is a 22 year old left [...] not yet followed u (more content not included)...[facility]06-25-2024 History of Present illness Narrative* Carla Rico MD - 08/13/2023 2:41 PM EDT [facility] Section of Pediatric Epilepsy/Neurology Epilepsy Center, Neurological [place] Date of Service: 02/01/2023 RETURN VISIT NOTE HISTORY SINCE LAST VISIT: The patient has returned for follow-up regarding well controlled RAHEEL. Possible family history of RAHEEL SERIALS LIBRARIAN, Bri Julian This is a 22 year [...] which included preparing to see the patient, [id number] patient care, completing clinical documentation, obtaining and/or reviewing separately obtained history, counseling and educating the patient/family/caregiver, ordering medications, ramu ts, or procedures, communicating with other HCPs (not separately reported), independently interpreting results (not separately reported), and communicating results to the patient/family/caregiver. Carla Chowdary M.D. Staff, Epilepsy Center/Neurology, [facility] [place] [facility], Mail code - S[id number] [id number] CC: Records via digital FAX or [employer] To use this Smartlink, specify the provider ID whose address you want to display, e.g., .PROVADDR[1(where 1 is the provider ID). No referring provider defined for this encounter. Phone: N/A Fax: The family of Quentin Bird [address] [address] documented in [address] encounterMer[facility]03-11-2024 Miscellaneous Notes* Telephone Encounter - Mishel JamesRn), RN - 04/29/2023 3:26 PM EDT Confirmed with pharmacy that refills available. Prescription refused. Mishel James RN documented in this encounterMercy Health St. [facility]03-11-2024 NoteHNO ID: [id number] Author: THAO PAGAN MD Service: ? Author Type: Physician Type: Progress Notes Filed: 04/29/2023 15:25 Note Text: [facility] Sleep Disorders Center New Patient Evaluation PATIENT NAME: Quentin L Marge DATE OF SERVICE: April 29, 2023 CONSULTING PROVIDER: Carla Chowdary [address] [facility] [address] REASON FOR CONSULT: Carla Chowdary sends the [...] negative study. 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 The cost is $40. Use www.[employer] which to access the [facility] Wellness website to purchase the program ( go to Shop, and then Wellness Programs, and the find the Go! To Sleep product). -Please fill out 2 weeks of sleep logs [facility]sleep [facility] documented in this encounterMercy Health St. [facility]03-11-2024 History of Present illness Narrative* Thao Pagan MD - 04/29/2023 12:55 PM EDT Images from the original note were not included. [facility] Sleep Disorders Center New Patient Evaluation PATIENT NAME: Quentin Bird DATE OF SERVICE: April 29, 2023 CONSULTING PROVIDER: Carla Chowdary [address] [facility] [address] REASON FOR CONSULT: Carla Chowdary sends the [...] negative study. 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 high chance [...] for insomnia. The cost is $40. Use www.[employer] which to access the [facility] Wellness website to purchase the program [...] Karol Funk MD Sleep Medicine Fellow PGY-7 [facility] [place] STAFF PHYSICIAN NOTE OF PERSONAL INVOLVEMENT IN [...] with 2 weeks of sleep logs and [facility] sleep medicine referral. Patient agreeable. Patient [...] Disorder Center Schedule appointment or sleep studies: [phone] or [phone] option 1 Office: [phone] ext. [phone] This clinical note has been [...] that may be inappropriate. documented in this encounterMercy Health St[facility]03-04-2024 NoteHNO ID: [id number] Author: ?, ?, ? Service: ? Author Type: ? Type: Progress Notes Filed: 04/22/2023 05:18 Note Text: Sleep Study Check-In Documentation Date: April 22, 2023 Name: Quentin Bird Patient was accompanied by Self. Location: Latex allergy: No Tape allergy: No Current medications were reviewed with the patient:Yes Sleep aid taken by patient for the sleep study: [employer] sleep aid: Not Applicable Procedure was explained to the patient and all questions were answered. PAP treatment discussed and shown to patient: Yes Knowledge Program (KP): KP was not completed in [facility] by patient and accepted Study type: Double study-Polysomnogram with extra EEG/ RBD Adverse Event: No (If yes create a new abstract) Comments: Patient was advised to follow up with their ordering provider regarding test results Carrie Delgado [facility]03-04-2024 History of Present illness Narrative* Carrie Espinoza - 04/22/2023 5:16 AM EST Sleep Study Check-In Documentation Date: April 22, 2023 Name: Quentin Bird Patient was accompanied by Self. Location: Latex allergy: No Tape allergy: No Current medications were reviewed with the patient:Yes Sleep aid taken by patient for the sleep study: [employer] sleep aid: Not Applicable Procedure was explained to the patient and all questions were answered. PAP treatment discussed and shown to patient: Yes Knowledge Program (KP): KP was not completed in [facility] by patient and accepted Study type: Double [...] provider CONSULT TO SLEEP MEDICINE - ADULT [[id number]] 02/01/23 Carla Rico MD Assoc. 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 PAST MEDICAL HISTORY [...] Study) from Carla Holt MD, a B. [facility] Staff. Visit prep complete. Comments :No The sleep study is scheduled for 04/20. Insurance: Payor: ANTHEM / Plan: BLUE ACCESS PPO / Product Type: PPO / Payer/Plan Subscr Sex Relation Sub. Ins. ID Effective Group Num 1. [employer] - BLUE* VENKATA BIRD [birth year]1968 Male Child [id number] [birth year] [id number] [id number] 2. AETNA - AETNA* YU RAWLS [birth year]1975 Male Child [id number] [birth year] [id number] [address] Tremayne Crespo documented in this encounterMercy Health [facility]02-07-2024 Miscellaneous Notes* Telephone Encounter - Mishel James [...] Caller Contact Number: my chart Pharmacy Name: [facility] Number: [phone] Generic/ brand: generic 30 or 90 day supply requested: 90 Last appointment: 02/01/23 Next Appointment: 08/13/[address] Simms documented in this encounterMercy Health St[facility]12-19-2023 Miscellaneous Notes* Telephone Encounter - Mishel JamesRn), [...] Thanks Carla Chowdary MD documented in this encounterMercy Health St. [facility]12-15-2023 NoteHNO ID: [id number] Author: Carla Rico MD Service: ? Author Type: Physician Type: Progress Notes Filed: 02/01/2023 4:03 PM Note Text: order for double study PSG and EEG and sleep consultation [facility] [place]23 NoteHNO ID: [id number] Author: Carla Rico MD Service: ? Author Type: Physician Type: Progress Notes Filed: 02/01/2023 4:38 PM Note Text: [facility] Section of Pediatric Epilepsy/Neurology Epilepsy Center, Neurological [place] Date of Service: 02/01/2023 RETURN VISIT NOTE [...] two times a day for 180 days. vo-de-ygsj-FA-Ca carb-vit K (WOMEN'S MULTIVITAMIN) 18 mg-400 mcg- [...] new symptom of concern. (more content not included)...[facility] [place]12-15-2023 Instructions* Patient Instructions* Carla Rico MD - [...] hands Carla Chowdary MD documented in this encounterMer[facility] Health [facility]12-15-2023 History of Present illness Narrative* Carla Rico MD - 02/01/2023 3:58 PM EST order for double study PSG and EEG and sleep consultation Carla Chowdary MD documented in this encounterMercy Health [facility]12-15-2023 History of Present illness Narrative* Carla Rico MD - 02/01/2023 3:42 PM EST [facility] Section of Pediatric Epilepsy/Neurology Epilepsy Center, Neurological [place] Date of Service: 02/01/2023 RETURN VISIT NOTE HISTORY SINCE LAST VISIT: The patient has returned for follow-up regarding well controlled RAHEEL. Possible family history of RAHEEL SERIALS LIBRARIAN, Bri Julian This is a 22 year [...] proceeded by a cluster of myoclonic jerks. Qunetin had a burn during the seizure as [...] two times a day for 180 days. dt-lb-mkbt-FA-Ca carb-vit K (WOMEN'S MULTIVITAMIN) 18 mg-400 mcg- [...] which included preparing to see the patient, hutj-cs-mlpy patient care, completing clinical documentation, obtaining and/or reviewing separately obtained history, counseling and educating the patient/family/caregiver, ordering medications, ramu ts, or procedures, communicating with other HCPs (not separately reported), independently interpreting results (not separately reported), and communicating results to the patient/family/caregiver. Carla Chowdary M.D. Staff, Epilepsy Center/Neurology, Neurological [place] [facility], Mail code - [phone] [facility] [address] CC: Records via digital FAX or Epic To use this Smartlink, specify the provider ID whose address you want to display, e.g., .PROVADDR[1(where 1 is the provider ID). No referring provider defined for this encounter. Phone: N/A Fax: The family of Quentin Wh[facility] [address] documented in [address] encounterMer[address] [facility]12-04-2023 Miscellaneous Notes* Telephone Encounter - Michell Gonzalez [...] Relationship to patient: Self Contact phone number: [phone] Date of seizure: 01/19/23 Duration: 2 minutes Back to Baseline (Yes/No): yes Emergency treatment needed (Yes/No): yes Patient of Dr. Simms documented in this encounterMercy Health St. [facility]10-11-2023 Miscellaneous Notes* Telephone Encounter - Sara Davenport LPN - 11/28/2022 1:07 PM EDT Date of service: November 28, 2022 -Prescription appropriate, please file and document electronically. Thank you. -Routed to Dr. Holland Davenport LPN * Telephone Encounter - Jeniffer Austin - 11/28/2022 10:16 AM EDT Prescription Refill: Requested by: My chart Please E Scribe Caller Contact Number: [phone] (home) Pharmacy Name: [facility] Pharmacy Number: [phone] Generic/ brand: 30 or 90 day supply requested: 90 Last appointment: 06/06/2021 Next Appointment: none fwd to schedulers Patient of Dr. Simms documented in this encounterMercy Health [facility]10-26-2022 Miscellaneous Notes* Telephone Encounter - Debra Call RN - 12/13/2021 3:44 PM EDT New pharmacy .-Prescription appropriate. Please file, document electronically, and CLOSE encounter. Thank you. -Routed to Dr. Holland Call RN * Telephone Encounter - Joellen Breaux - 12/13/2021 10:16 AM EDT Prescription Refill: NEW PHARMACY REQUEST; PLEASE RE-APPROVE Requested by: pharmacy Please E-Scribe Caller Contact Number: Pharmacy Name: [facility] Number: [phone] Generic/ brand: 30 or 90 day supply requested: 90 Last appointment: 06/06/21 Next Appointment: none Patient of Dr. Simms documented in this encounterMercy Health St[facility]09-09-2022 Miscellaneous Notes* Telephone Encounter - Cedrick Chapman MD - 10/27/2021 5:03 PM EDT Reviewed and refilled the medications noted below. Requested Prescriptions Pending Prescriptions Disp Refills nr-dj-iera-FA-Ca carb-vit K (WOMEN'S MULTIVITAMIN) 18 mg-400 mcg- 500 mg-50 mcg tab 365 tablet 0 Sig: Take 1 tablet by mouth once daily. folic acid 1 mg tablet 180 tablet 3 Sig: Take 2 tablets by mouth once daily. lacosamide (VIMPAT) 100 mg tab 180 tablet 3 Sig: Take 1 tablet by mouth twice daily. Tania Jauregui,Bhavya, M.D Pediatric Epileptologist Epilepsy Center, [facility] [address] [address] * Telephone Encounter - Mishel James RN - 10/27/2021 3:01 PM EDT Date of service: October 27, 2021 Quentin Bird is a 21 year old Last seen by Dr. Simms on 10/27/21 Now requesting medication refill Prescription appropriate, please file and document electronically. Thank you. Routed to Dr. Chapman (covering) Mishel James RN documented in this encounterMer[facility] Health [facility]04-21-2022 Miscellaneous Notes* Telephone Encounter - FELICIA Dickens - 06/08/2021 12:26 PM EDT Received approval for Nayzilam from [employer]. Approval Dates: 06/08/21-06/08/22. REF #: [id number] Approval uploaded to [facility]. * Telephone Encounter - Mishel James RN - 06/08/2021 10:36 AM EDT Images from the original note were not included. PA submitted via [employer]s. Mishel James RN * Telephone Encounter - FELICIA Dickens - 06/07/2021 4:14 PM EDT Prior Authorization Needed: Received by: Fax Requested by (pharm[facility] name): [facility] Phone number: Name of medication: Nayzilam Strength and dosage: 5mg Insurance company name and phone #[facility] Patient ID: [id number] Patient of Dr. Simms documented in this encounterMer[facility]04-18-2022 Miscellaneous Notes* Telephone Encounter - Mishel James [...] Please E-Scribe Caller Contact Number: Pharmacy Name: [facility] Pharmacy Number: Generic/ brand: 30 or 90 day supply requested: 90 Last appointment: 12/01/20 Next Appointment: 06/06/[address] Simms documented in this encounterMer[facility]04-14-2022 Miscellaneous Notes* Telephone Encounter - Mishel James [...] Please E-Scribe Caller Contact Number: Pharmacy Name: [facility] Pharmacy Number: [phone] Generic/ brand: 30 or 90 day supply requested: 90 Last appointment: 12/01/2020 Next Appointment: 06/06/[address] Simms documented in this encounterMer[facility]04-13-2022 Miscellaneous Notes* Telephone Encounter - Mishle James RN - 05/31/2021 8:25 AM EDT Duplicate request. Mishel James RN documented in this encounterMercy Health St. [facility]04-12-2022 Miscellaneous Notes* Telephone Encounter - Mishel James [...] Contact Number: Pharmacy Name: [facility] Number: [phone] Generic/ brand: 30 or 90 day supply requested: 90 Last appointment: 12/01/2020 Next Appointment: 06/06/[address] Simms documented in this encounterMer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 [facility]* Diagnosis Juvenile myoclonic epilepsy, not intractable, 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 [facility]* Diagnosis Juvenile myoclonic epilepsy, not intractable, 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 MECCA (obstructive sleep apnea) Obstructive sleep apnea (adult) (pediatric) [facility]* Diagnosis Juvenile myoclonic epilepsy, not intractable, 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* Diagnosis [...] of nonorganic origin documented in this encounter 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 [facility] encounter [facility]* Diagnosis Juvenile myoclonic epilepsy, not intractable, 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 [facility]* Diagnosis Follow-up encounter involving medication documented [facility] encounter [facility] noteNo assessment information availableTuscaraw[facility] Work Phone: evaluation note* Diagnosis Juvenile myoclonic epilepsy, not intractable, 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 [facility] encounter [facility]* Diagnosis Juvenile myoclonic epilepsy, not intractable, 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 [facility]* Diagnosis Juvenile myoclonic epilepsy, not intractable, 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 documented [facility] this encounter [facility]* Diagnosis Well woman exam with routine gynecological exam Routine gynecological examination Insulin resistance Other abnormal glucose Screen for STD (sexually transmitted disease) Screening examination for venereal disease documented in this encounter [facility]* Diagnosis Juvenile myoclonic epilepsy, not intractable, 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 [facility]* Diagnosis Juvenile myoclonic epilepsy, not intractable, 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 [facility]* Diagnosis Juvenile myoclonic epilepsy, not [...] and depression (CMS/HCC) documented in this encounter [facility]* Diagnosis Intractable juvenile myoclonic epilepsy without status epilepticus (CMS/HCC)- Primary documented in this encounter [facility]* Diagnosis BV (bacterial vaginosis)- Primary Unspecified vaginitis and vulvovaginitis Menorrhagia with irregular cycle documented in this encounter [facility]* Diagnosis Onset Date Resolution Status Admit Date RAHEEL (juvenile myoclonic epilepsy) acute August 27, 2024 12:29pm [facility] Work Phone: Evaluation note* Diagnosis STD exposure Sexually transmitted disease exposure Contact with or exposure to venereal diseases BV (bacterial vaginosis) Unspecified vaginitis and vulvovaginitis documented in this encounter [facility]* Diagnosis Vaginal discharge Leukorrhea, not specified as infective STD exposure Vaginal lesion Other specified noninflammatory disorder of vagina documented in this encounter [facility]* Diagnosis Herpes genitalis in women- Primary Unspecified genital herpes documented in this encounter [facility]* Diagnosis Menorrhagia with irregular cycle Insulin resistance Other abnormal glucose Herpes genitalis in women Unspecified genital herpes documented in this encounter [facility] HealthcareHospital Discharge instructions Additional Instructions Follow-up with your primary care doctor Return to ED follow-up worsening symptoms or concernsSum[facility] Work Phone: Reason for referral (narrative)* [...] INCR>12HR<26HR AFTER 24HR W/VEEG Carla Rico MD [address] [place] [address] [place] [address] Referral ID Status Reason Start Date Expiration Date Visits Requested Visits Authorized [id number] Pending Review Auto-Generat ed Referral 3 03/02/2024 1 1 * Consult, Test, Treat (Routine) - Authorized Specialty Diagnoses / Procedures Referred By Myra salcedo Referred To Contact Diagnoses Juvenile myoclonic epilepsy, not intractable, with status epilepticus (HCC) Procedures CONSULT TO SLEEP MEDICINE - ADULT OFFICE/OUTPATIENT [facility] 60-74 MINUTES Carla Rico MD [address] [id number] Referral ID Status Reason Start Date Expiration Date Visits Requested Visits Authorized [id number] Authorized PCP Requested Referral 3 02/01/2024 1 1 [facility] for referral (narrative)* Outpatient Procedure (Routine) - Authorized Specialty Diagnoses / Procedures Referred By Myra salcedo Referred To Contact [facility] Diagnoses Juvenile myoclonic epilepsy, not intractable, with status epilepticus (HCC) Procedures EPIL EEG LONG EEG EXTENDED MONITORING 61-119 MINUTES ELECTROENCEPHALOGRAM REC COMA/SLEEP ONLY Daisy De Leon DO [address] [place] [address] [address] Referral ID Status Reason Start Date Expiration Date Visits Requested Visits Authorized [id number] Authorized Auto-Generat ed Referral 4 01/08/2025 1 1 [facility] for referral (narrative)No reason for [...] alcohol or drug abuse patient.[facility] HospitalIn the event this information is protected by the Federal Confidentiality of Alcohol and Drug Abuse Patient Records regulations: The Federal rules restrict any use of the information to criminally investigate or prosecute any alcohol or drug abuse patient.[facility] HospitalIn the event this information is protected by the Federal Confidentiality of Alcohol and Drug Abuse Patient Records regulations: The Federal rules restrict any use of the information to criminally investigate or prosecute any alcohol or drug abuse patient.[facility] HospitalIn the event this information is protected by the Federal Confidentiality of Alcohol and Drug Abuse Patient Records regulations: The Federal rules restrict any use of the information to criminally investigate or prosecute any alcohol or drug abuse patient.[facility] HospitalIn the event this information is protected by the Federal Confidentiality of Alcohol and Drug Abuse Patient Records regulations: The Federal rules restrict any use of the information to criminally investigate or prosecute any alcohol or drug abuse patient.[facility] HospitalIn the event this information is protected by the Federal Confidentiality of Alcohol and Drug Abuse Patient Records regulations: The Federal rules restrict any use of the information to criminally investigate or prosecute any alcohol or drug abuse patient.[facility] HospitalIn the event this information is protected by the Federal Confidentiality of Alcohol and Drug Abuse Patient Records regulations: The Federal rules restrict any use of the information to criminally investigate or prosecute any alcohol or drug abuse patient.[facility] HospitalIn the event this information is protected by the Federal Confidentiality of Alcohol and Drug Abuse Patient Records regulations: The Federal rules restrict any use of the information to criminally investigate or prosecute any alcohol or drug abuse patient.[facility] HospitalIn the event this information is protected by the Federal Confidentiality of Alcohol and Drug Abuse Patient Records regulations: The Federal rules restrict any use of the information to criminally investigate or prosecute any alcohol or drug abuse patient.[facility] HospitalIn the event this information is protected by the Federal Confidentiality of Alcohol and Drug Abuse Patient Records regulations: The Federal rules restrict any use of the information to criminally investigate or prosecute any alcohol or drug abuse patient.[facility] HospitalIn the event this information is protected by the Federal Confidentiality of Alcohol and Drug Abuse Patient Records regulations: The Federal rules restrict any use of the information to criminally investigate or prosecute any alcohol or drug abuse patient.[facility] HospitalIn the event this information is protected by the Federal Confidentiality of Alcohol and Drug Abuse Patient Records regulations: The Federal rules restrict any use of the information to criminally investigate or prosecute any alcohol or drug abuse patient.[facility] HospitalIn the event this information is protected by the Federal Confidentiality of Alcohol and Drug Abuse Patient Records regulations: The Federal rules restrict any use of the information to criminally investigate or prosecute any alcohol or drug abuse patient.[facility] HospitalIn the event this information is protected by the Federal Confidentiality of Alcohol and Drug Abuse Patient Records regulations: The Federal rules restrict any use of the information to criminally investigate or prosecute any alcohol or drug abuse patient.[facility] HospitalIn the event this information is protected by the Federal Confidentiality of Alcohol and Drug Abuse Patient Records regulations: The Federal rules restrict any use of the information to criminally investigate or prosecute any alcohol or drug abuse patient.[facility] HospitalIn the event this information is protected by the Federal Confidentiality of Alcohol and Drug Abuse Patient Records regulations: The Federal rules restrict any use of the information to criminally investigate or prosecute any alcohol or drug abuse patient.[facility] HospitalIn the event this information is protected by the Federal Confidentiality of Alcohol and Drug Abuse Patient Records regulations: The Federal rules restrict any use of the information to criminally investigate or prosecute any alcohol or drug abuse patient.[facility] HospitalIn the event this information is protected by the Federal Confidentiality of Alcohol and Drug Abuse Patient Records regulations: The Federal rules restrict any use of the information to criminally investigate or prosecute any alcohol or drug abuse patient.[facility] HospitalIn the event this information is protected by the Federal Confidentiality of Alcohol and Drug Abuse Patient Records regulations: The Federal rules restrict any use of the information to criminally investigate or prosecute any alcohol or drug abuse patient.[facility] HospitalIn the event this information is protected by the Federal Confidentiality of Alcohol and Drug Abuse Patient Records regulations: The Federal rules restrict any use of the information to criminally investigate or prosecute any alcohol or drug abuse patient.[facility] HospitalIn the event this information is protected by the Federal Confidentiality of Alcohol and Drug Abuse Patient Records regulations: The Federal rules restrict any use of the information to criminally investigate or prosecute any alcohol or drug abuse patient.[facility] HospitalIn the event this information is protected by the Federal Confidentiality of Alcohol and Drug Abuse Patient Records regulations: The Federal rules restrict any use of the information to criminally investigate or prosecute any alcohol or drug abuse patient.[facility] HospitalIn the event this information is protected by the Federal Confidentiality of Alcohol and Drug Abuse Patient Records regulations: The Federal rules restrict any use of the information to criminally investigate or prosecute any alcohol or drug abuse patient.[facility] HospitalIn the event this information is protected by the Federal Confidentiality of Alcohol and Drug Abuse Patient Records regulations: The Federal rules restrict any use of the information to criminally investigate or prosecute any alcohol or drug abuse patient.[facility] HospitalIn the event this information is protected by the Federal Confidentiality of Alcohol and Drug Abuse Patient Records regulations: The Federal rules restrict any use of the information to criminally investigate or prosecute any alcohol or drug abuse patient.[facility] HospitalIn the event this information is protected by the Federal Confidentiality of Alcohol and Drug Abuse Patient Records regulations: The Federal rules restrict any use of the information to criminally investigate or prosecute any alcohol or drug abuse patient.[facility] HospitalIn the event this information is protected by the Federal Confidentiality of Alcohol and Drug Abuse Patient Records regulations: The Federal rules restrict any use of the information to criminally investigate or prosecute any alcohol or drug abuse patient.[facility] HospitalIn the event this information is protected by the Federal Confidentiality of Alcohol and Drug Abuse Patient Records regulations: The Federal rules restrict any use of the information to criminally investigate or prosecute any alcohol or drug abuse patient.[facility] HospitalIn the event this information is protected by the Federal Confidentiality of Alcohol and Drug Abuse Patient Records regulations: The Federal rules restrict any use of the information to criminally investigate or prosecute any alcohol or drug abuse patient.[facility] HospitalIn the event this information is protected by the Federal Confidentiality of Alcohol and Drug Abuse Patient Records regulations: The Federal rules restrict any use of the information to criminally investigate or prosecute any alcohol or drug abuse patient.[facility] HospitalIn the event this information is protected by the Federal Confidentiality of Alcohol and Drug Abuse Patient Records regulations: The Federal rules restrict any use of the information to criminally investigate or prosecute any alcohol or drug abuse patient.[facility] HospitalIn the event this information is protected by the Federal Confidentiality of Alcohol and Drug Abuse Patient Records regulations: The Federal rules restrict any use of the information to criminally investigate or prosecute any alcohol or drug abuse patient.[facility] HospitalIn the event this information is protected by the Federal Confidentiality of Alcohol and Drug Abuse Patient Records regulations: The Federal rules restrict any use of the information to criminally investigate or prosecute any alcohol or drug abuse patient.[facility] HospitalIn the event this information is protected by the Federal Confidentiality of Alcohol and Drug Abuse Patient Records regulations: The Federal rules restrict any use of the information to criminally investigate or prosecute any alcohol or drug abuse patient.[facility] HospitalIn the event this information is protected by the Federal Confidentiality of Alcohol and Drug Abuse Patient Records regulations: The Federal rules restrict any use of the information to criminally investigate or prosecute any alcohol or drug abuse patient.[facility] HospitalIn the event this information is protected by the Federal Confidentiality of Alcohol and Drug Abuse Patient Records regulations: The Federal rules restrict any use of the information to criminally investigate or prosecute any alcohol or drug abuse patient.[facility] HospitalIn the event this information is protected by the Federal Confidentiality of Alcohol and Drug Abuse Patient Records regulations: The Federal rules restrict any use of the information to criminally investigate or prosecute any alcohol or drug abuse patient.[facility] HospitalIn the event this information is protected by the Federal Confidentiality of Alcohol and Drug Abuse Patient Records regulations: The Federal rules restrict any use of the information to criminally investigate or prosecute any alcohol or drug abuse patient.[facility] HospitalIn the event this information is protected by the Federal Confidentiality of Alcohol and Drug Abuse Patient Records regulations: The Federal rules restrict any use of the information to criminally investigate or prosecute any alcohol or drug abuse patient.[facility] HospitalIn the event this information is protected by the Federal Confidentiality of Alcohol and Drug Abuse Patient Records regulations: The Federal rules restrict any use of the information to criminally investigate or prosecute any alcohol or drug abuse patient.[facility] HospitalIn the event this information is protected by the Federal Confidentiality of Alcohol and Drug Abuse Patient Records regulations: The Federal rules restrict any use of the information to criminally investigate or prosecute any alcohol or drug abuse patient.[facility] HospitalIn the event this information is protected by the Federal Confidentiality of Alcohol and Drug Abuse Patient Records regulations: The Federal rules restrict any use of the information to criminally investigate or prosecute any alcohol or drug abuse patient.[facility] HospitalIn the event this information is protected by the Federal Confidentiality of Alcohol and Drug Abuse Patient Records regulations: The Federal rules restrict any use of the information to criminally investigate or prosecute any alcohol or drug abuse patient.[facility] Reason for Visit (unrecogniz ed section [...] CONSULT TO SLEEP MEDICINE - ADULT OFFICE/OUTPATIENT [facility] 60-74 MINUTES Carla Rico MD [address] [place] [address] Referral ID Status Reason Start Date Expiration Date V isits Requested Visits Authorized [id number] Closed PCP Requested Referral 02/01/2023 02/01/2024 1 [...] section and content) DATE CREATED AUTHOR 02/07/2023 [facility] DATE CREATED AUTHOR AUTHOR'S ORGANIZ ATION 02/26/2023 [facility] DATE CREATED AUTHOR AUTHOR'S ORGANIZ ATION 04/30/2023 [facility] DATE CREATED AUTHOR AUTHOR'S ORGANIZ ATION 04/20/2024 [facility] DATE CREATED AUTHOR AUTHOR'S ORGANIZ ATION 09/10/2024 [facility] DATE CREATED AUTHOR AUTHOR'S ORGANIZ ATION 11/09/2024 [facility] DATE CREATED AUTHOR AUTHOR'S ORGANIZ ATION 11/29/2024 [facility] EP[facility] Care Teams (unrecognized sec tion and content) Team Status: Active Member Role Status Dates Bri Julian [facility] Primary Care Provider Active Team Status: Inactive Member Role Status Dates Bri Julian [facility] Primary Care Provider Active Start: June 14, 2023 End: June 14, 2023 Maira Gibson APRN Attending Provider Active Start: June 14, 2023 End: June 14, 2023 Team Status: Inactive Member Role Status Dates Maira Gibson APRN Attending Provider Active Start: June 14, 2023 End: June 14, 2023 Rotational Moulding Operator Relationship Specialty Start Date End Date Love Madison MD [address] [place] [address] PCP - General Family Medicine 01/25/23 Ashley Corcoran NP [address] [place] [address] Nurse Practitioner Family Medicine 01/25/23 Rotational Moulding Operator Relationship Specialty Start Date End Date Love Madison MD [address] [place] [address] PCP - General Family Medicine 01/25/23 Ashley Corcoran NP [address] [place] [address] Nurse Practitioner Family Medicine 01/25/23 Team Status: [...] End: December 11, 2023 Baldev Mayer - [facility] , DO [facility] Attending Provider Active Start: December 11, 2023 End: December 11, 2023 Rotational Moulding Operator Relationship Specialty Start Date End Date Love Madison MD [address] [place] [address] PCP - General Family Medicine 01/25/23 Ashley Corcoran NP [address] [place] [address] Nurse Practitioner Family Medicine 01/25/23 Rotational Moulding Operator Relationship Specialty Start Date End Date Love Madison MD [address] [place] [address] PCP - General Family Medicine 01/25/23 Ashley Corcoran NP [address] [place] [address] Nurse Practitioner Family Medicine 01/25/23 Team Status: [...] March 16, 2024 End: March 16, 2024 Rotational Moulding Operator Relationship Specialty Start Date End Date Love Madison MD [address] [place] [address] PCP - General Family Medicine 01/25/23 Ashley Corcoran NP [address] [place] [address] Nurse Practitioner Family Medicine 01/25/23 Rotational Moulding Operator Relationship Specialty Start Date End Date Chey Bliss MD [address] [place] [address] PCP - General Family Medicine 04/13/24 Ashley Corcoran NP [address] [place] [address] Nurse Practitioner Family Medicine 01/25/23 Rotational Moulding Operator Relationship Specialty Start Date End Date Chey Bliss MD [address] [place] [address] PCP - General Family Medicine 04/13/24 Nory Aguilar NP [address] [place] [address] Nurse Practitioner Family Medicine 04/20/24 Rotational Moulding Operator Relationship Specialty Start Date End Date Chey Bliss MD [address] [place] [address] PCP - General Family Medicine 04/13/24 Nory Aguilar NP [address] [facility] [place] [address] Nurse Practitioner Family Medicine 04/20/24 Team Status: [...] May 18, 2024 End: May 18, 2024 Rotational Moulding Operator Relationship Specialty Start Date End Date Chey Bliss MD [address] [facility] [place] [address] PCP - General Family Medicine 04/13/24 Nory Aguilar NP [address] [facility] [place] [address] Nurse Practitioner Family Medicine 04/20/24 Gabi Mcclure DO [address] [place] [address] Referring Physician Neurology 06/18/24 Rotational Moulding Operator Relationship Specialty Start Date End Date Chey Bliss MD PCP - General Family Medicine 04/13/24 Nory Aguilar NP [address] [facility] [place] [address] Nurse Practitioner Family Medicine 04/20/24 Gabi Mcclure DO [address] [place] [phone] Referring Physician Neurology 06/18/24 Rotational Moulding Operator Relationship Specialty Start Date End Date Chey Bliss MD PCP - General Family Medicine 04/13/24 Nory Aguilar NP [address] [facility] [place] [address] Nurse Practitioner Family Medicine 04/20/24 Gabi Mcclure DO [address] [place] [phone] Referring Physician Neurology 06/18/24 Rotational Moulding Operator Relationship Specialty Start Date End Date Chey Bliss MD PCP - General Family Medicine 04/13/24 Nory Aguilar NP [address] [facility] [place] [address] Nurse Practitioner Family Medicine 04/20/24 Gabi Mcclure DO [address] [address] Referring Physician Neurology 06/18/24 Team Status: Inactive Member Role Status Dates DEUCE Cristina Primary Care Provider Active Start: August 27, 2024 End: August 27, 2024 Gabi Mcclure DO Attending Provider Active Start: August 27, 2024 End: August 27, 2024 Rotational Moulding Operator Relationship Specialty Start Date End Date Chey Bliss MD PCP - General Family Medicine 04/13/24 Nory Aguilar NP [address] [place] [address] Nurse Practitioner Family Medicine 04/20/24 Gabi Mcclure DO [address] [address] Referring Physician Neurology 06/18/24 Rotational Moulding Operator Relationship Specialty Start Date End Date Chey Bliss MD PCP - General Family Medicine 04/13/24 Nory Aguilar NP [address] [place] [address] Nurse Practitioner Family Medicine 04/20/24 Gabi Mcclure DO [address] [place] [phone] Referring Physician Neurology 06/18/24 Rotational Moulding Operator Relationship Specialty Start Date End Date Chey Bliss MD PCP - General Family Medicine 04/13/24 Nory Aguilar NP [address] [place] [address] Nurse Practitioner Family Medicine 04/20/24 Gabi Mcclure DO [address] [address] Referring Physician Neurology 06/18/24 Rotational Moulding Operator Relationship Specialty Start Date End Date Chey Bliss MD PCP - General Family Medicine 04/13/24 Nory Aguilar NP [address] [place] [address] Nurse Practitioner Family Medicine 04/20/24 Gabi Mcclure DO [address] [place] [id number] Referring Physician Neurology 06/18/24 Rotational Moulding Operator Relationship Specialty Start Date End Date Chey Bliss MD PCP - General Family Medicine 04/13/24 Nory Aguilar NP [address] [place] [address] Nurse Practitioner Family Medicine 04/20/24 Gabi Mcclure DO [address] [address] Referring Physician Neurology 06/18/24 Rotational Moulding Operator Relationship Specialty Start Date End Date Chey Bliss MD PCP - General Family Medicine 04/13/24 Nory Aguilar NP [address] [place] [address] Nurse Practitioner Family Medicine 04/20/24 Gabi Mcclure DO [address] [phone] Referring Physician Neurology 06/18/24 Rotational Moulding Operator Relationship Specialty Start Date End Date Chey Bliss MD PCP - General Family Medicine 04/13/24 Nory Aguilar NP [address] [place] [address] Nurse Practitioner Family Medicine 04/20/24 Gabi Mcclure DO [address] [address] Referring Physician Neurology 06/18/24 Rotational Moulding Operator Relationship Specialty Start Date End Date Chey Bliss MD PCP - General Family Medicine 04/13/24 Nory Aguilar NP [address] [place] [address] Nurse Practitioner Family Medicine 04/20/24 Gabi Mcclure DO [address] [place] [address] Referring Physician Neurology 06/18/24 Team Status: Inactive Member Role Status Dates DEUCE Cristina Primary Care Provider Active Start: November 05, 2024 End: November 05, 2024 Gabi Mcclure DO Attending Provider Active Start: November 05, 2024 End: November 05, 2024 Jonathan Elizbaeth DO Other Provider Active Start: Se ptember [...] BE BASED ON THE PRIMARY CLINICAL RECORDS. [employer] provides no warranty or guarantee of the accuracy or completeness of information in this document.
[2024-12-04 09:32] LABS: Hematocrit 35.6 % (36.0-48.0); Hemoglobin 12.2 g/dL (12.0-16.0); Immature Granulocytes Abs Auto 0.02 10^3/uL (0.00-0.03); Immature Granulocytes Pct Auto 0.3 % (0.0-0.5); Lymphocytes Absolute Auto 1.5 10^3/uL (1.2-3.8); Mean Corpuscular HGB Conc 34.3 g/dL (29.9-35.2); Mean Corpuscular Hemoglobin 31.3 pg (26.7-34.0); Mean Corpuscular Volume 91.3 fL (81.0-99.0); Platelet Count 252 10^3/uL (150-450); Red Blood Count 3.90 10^6/uL (4.20-5.40); White Blood Count 7.0 10^3/uL (4.0-11.0)
[2024-12-04 09:33] VITALS: BP 124/74; PULSE 75; TEMP 36.3; O2SAT 100; BMI 27.3
--- NOTE | 2024-12-04 11:32 | P.ON_ITS ---
Brief Operative Note Date of procedure: 12/04/24 Pre-op diagnosis general: missed Post-op diagnosis: same as pre-op Procedure: NAME OF PROCEDURE: [D&C suction ] PROCEDURE: The patient was taken back to the OR where she was given general anesthesia without difficulty. She was then placed in dorsal lithotomy position, prepped and draped in the normal sterile fashion. A weighted speculum was placed in the patient's vagina and the anterior lip of the cervix was identified and grasped with a single-tooth tenaculum. The patient was then gently dilated using Hegar dilators after we had sounded roughly to 12 cm. The suction curette was then tested. The suction curette was then placed in the patient's uterus and products of conception were removed using an 10-Upper Sorbian suction curette. ?Excellent hemostasis was noted. The patient tolerated the procedure well. Sponge, lap, and needle counts were correct x 2. All instruments were then removed from the patient's vagina. The patient was taken to the Recovery Room in stable conditio n. ?? Anesthesia: MAC Surgeon: Jonathan Elizabeth Estimated blood loss (mL): 5 Pathology: other (poc) Condition: stable Disposition: PACU Urinary Catheter Management Urinary Catheter Management Straight: Cath placed during this visit: no
[2024-12-04 11:35] VITALS: BP 106/51; PULSE 88; TEMP 36.6; O2SAT 98
[2024-12-04 11:50] VITALS: BP 117/53; PULSE 129; O2SAT 96
[2024-12-04 12:05] VITALS: BP 100/59; PULSE 65; O2SAT 100
[2024-12-04 12:35] VITALS: BP 95/67; PULSE 74; O2SAT 100
[2024-12-04 13:10] VITALS: BP 110/68; PULSE 78; O2SAT 100
== END 2024-12-04 13:10 | disposition home or self-care (01) ==
LOC: SURGOUT 09:22
PROVIDERS: PCP Nurse Practitioner Family; Visit Provider Obstetrics & Gynecology
PROC: (CPT 1965; principal; 2024-12-04 10:45)
DX: O02.1 Missed abortion (principal); R56.9 Unspecified convulsions; I07.1 Rheumatic tricuspid insufficiency; F41.9 Anxiety disorder, unspecified
CPT/HCPCS: 59820; 36415; 82948; 84702; 85025; 88305; J1885; J2250; J2405; J2590; J2704; J3010

== ENCOUNTER 2024-12-21 10:45 | Outpatient (OUT) | payer BC, OTHER, SELFPAY ==
--- OUTSIDE RECORDS SUMMARY | 2024-12-21 09:00 | XMS_ITS | Encounter Summary ---
Author Organization [facility] Address [address] [place] [address] Care Team Providers Care Electric Shaver Mechanic Name Role Phone TaylorTommie paklizy Gamble FITNESS STUDIES TEACHER Unavailable [phone] Marcial Mcclure DO Unavailable [phone] Rodrigo Queen MD Primary Care Provider [phone] Reason for Visit * ReasonCommentsPost-op VisitPt present today for a post operative visit. Pt had a D&Con 12/04/2024. Encounter Details DateTypeDepartmentCare Team (Latest Contact Info)Mwoxploihrv71/03/2025 9:00 AM ESTOffice Visit [facility] [place] [address] [place] [address] Jonathan Elizabeth DO [address] [facility] [address] [place] [place], [place] [id number] Postoperative visit; S/P D&C (status post dilation and curettage); Menorrhagia with irregular cycle; Yeast infection; HSV infection Social History Tobacco UseTypesPacks/DayYears UsedDateSmoking Tobacco: NeverSmokeless Tobacco: NeverAlcohol UseStandard Drinks/WeekCommentsYes0 (1 standard drink = 0.6 oz pure alcohol)caffeine intake: 2 sodas dailyAUDIT-CAnswerDate RecordedQ1: How often do you have a drink containing alcohol?2-4 times a month04/13/2024Q2: How many drinks containing alcohol do you have on a typical day when you are drinking?3 or Q3: How often do you have six or more drinks on one occasion? Sygtpur2404/13/2024PHQ-2AnswerDate RecordedPatient Health Questionnaire-2 Score0 04/13/2024CommentsNoSex and Gender InformationValueDate RecordedSex Assigned at BirthNot on fileLegal VsjDfvpbk57/15/2023 11:47 PM EDTGender IdentityNot on fileSexual OrientationNot on filedocumented as of this encounter Last Filed Vital Signs Vital SignReadingTime TakenCommentsBlood Ynsohusz354/6012/21/2024 9:43 AM EST Pulse--Temperature--Respiratory Rate--Oxygen Saturation--Inhaled Oxygen Concentration--Plgzdp66.1 kg (137 lb)12/21/2024 9:43 AM PHRDiaoev256.9 cm (5' 1 )12/21/2024 9:43 AM ESTBody Mass Index25.8912/21/2024 9:43 AM ESTdocumented in this encounter Plan of Treatment DateTypeDepartmentCare Team (Latest Contact Info)Rcmbugvdcbo66/15/2025 1:00 PM ESTProcedure Visit [facility] [address] [place] [address] Jennifer Rendon PA [address] [facility] [address] [place], [place] [id number] NameTypePriorityAssociated DiagnosesOrder SchedulehCG, quantitative, LabRoutine Postoperative visit S/P D&C (status post dilation and curettage) Expected: 12/21/2024 (Approximate), Expires: 12/21/2025documented as of this encounter Visit Diagnoses Diagnosis Postoperative visit S/P D&C (status post dilation and curettage) Other postprocedural status Menorrhagia with irregular cycle Yeast infection HSV infection Herpes simplex without mention of complication documented in this encounter Additional Health Concerns AssessmentNoted TimePHQ-9 Depression Total Score: 4:00 PM EST documented as of this encounter Care Teams Team MemberRelationshipSpecialtyStart DateEnd Date Rodrigo Queen MD [address] [facility] [place], [place] [id number] PCP - GeneralFamily Pjvsxfgn68/17/25 Nory Tayolr NP [address] [facility] [place], [place] [address] Nurse PractitionerFamily Medicine04/20/24 Marcial Mcclure DO [address] [facility] [address] [place] [address] Referring PhysicianNeurology06/18/24documented as of this encounter
--- OUTSIDE RECORDS SUMMARY | 2024-12-21 10:56 | XMS_ITS | Clinical Summary ---
Author Organization [employer] tem Address [id number] [address] [place] [address] Care Team Providers Care Animal Cruelty Investigator Name Role Phone No Pcp, No Pcp Primary Care Provider Unavailabl e Allergies Active AllergyReactionsCriticalityNoted DateCommentsNo Known Drug Allergies 12/19/2016 Medications MedicationSigDispense QuantityRefillsLast FilledStart DateEnd DateStatus metFORMIN XR (GLUCOPHAGE XR) 500 mg 24 hr tablet 10/28/2021ctive buPROPion XL (WELLBUTRIN XL) 150 mg 24 hr tablet Indications:Anxiety and depressionTake 1 tablet (150 mg total) by mouth in the morning. 90 tablet 12/19/2021ctive bacitracin zinc ointment Apply 1 Application topically in the morning and 1 Application before bedtime. 120 g 3Active Active Problems ProblemNoted DateDiagnosed DateJuvenile myoclonic epilepsy, not intractable, with status /11/2021Recurrent major depression in partial remission 1Anxiety and bvwefvhqrq74/27/2021Concussion with loss of consciousness of 30 minutes or less10/30/2018 Immunizations ImmunizationAdministration DatesNext JriTAyP2906/10/2007,01/24/2004DTaP / Hep B / IPV2002DTaP, Gsngjztifqh40/23/2004,03/19/2003Hep B / HIB06/11/2003Hep B, Adolescent or Tdvavdlck22/02/2023,2002Hepatitis B007/20/2022HiB03/19/2003 Hib (PRP-T)11/18/2003,2002IPV06/10/2007,06/11/2003,03/19/2003Influenza, Injectable, quadrivalent (PF)01/06/2021(Deferred: Patient decision)MMR06/10/2007 ,11/18/2003Meningococcal Feshwiopr54/13/2021Meningococcal, Uqvzwapwstr04/26/2016 Pneumococcal Iqbjtwbjd60/30/2004,2002Tdap05/27/2015 Social History Tobacco UseTypesPacks/DayYears UsedDateSmoking Tobacco: NeverSmokeless Tobacco: Never Tobacco Cessation:Counseling Given: Not Answered Alcohol UseStandard Drinks/WeekCommentsYes0 (1 standard drink = 0.6 oz pure alcohol)sociallyPHQ-2AnswerDate RecordedTotal Rvniu516/01/2022ChildcareAnswer Date NrtfcdhuOqwqnyualAunayhw75/10/2019EmploymentAnswerDate RecordedEmployment Akgthjg0007/28/2018Hunger ScreeningAnswerDate RecordedWithin the past 12 months we worried whether our food would run out before we got money to buy more.Never True01/19/2023Within the past 12 months the food we bought just didn't last and we didn't have money to get more.Never True3Purpose - LifeAnswerDate RecordedPurpose and direction in eaweSvlmbxw98/25/2021CommentsNoSex and Gender InformationValueDate RecordedSex Assigned at CmoxwOhlkpf73/05/2024 3:54 PM ESTLegal CzgWutbel08/04/2015 12:18 PM EDTGender ZponeswoFwrmyp90/05/2024 3:54 PM ESTSexual AerpoouhyarCwhucddh61/05/2024 3:54 PM EST Last Filed Vital Signs Vital SignReadingTime TakenCommentsBlood Wbapcklp444/8301/19/2023 10:32 AM EST Xomah200401/19/2023 11:38 AM WNTKlgxxxwqyqu82.9 ??C (98.5 ??F)01/19/2023 10:32 AM ESTRespiratory Zxgj532003/22/2022 11:38 AM ESTOxygen Njkjlfjehd81%01/19/2023 11:38 AM ESTInhaled Oxygen Concentration--Wxfcpp79.1 kg (154 lb 9.6 oz)08/08/2022 10:05 AM HGBIbrtjc719.4 cm (5')08/08/2022 10:05 AM EDTBody Mass Index30.19 08/08/2022 10:05 AM EDT Plan of Treatment Health MaintenanceDue DateLast DoneCommentsChlamydia Dwprhuzpg45/04/2003 Depression Bydhypyug95dult BMI Ltqqktzub50/ Pap Smear10/23/2023Tobacco Fgkydqdus90/OVID-19 Vaccine ( season), 05/04/2021Influenza Theutfa3910/19/2024 12/10/2022TaP,Tdap and Td Vaccines (7 - Td or Tdap), 06/10/2007, 01/24/2004, Additional history exists Medical Devices Not on file Insurance * Guarantor: Shaylee Rawls TypeRelation to PatientDate of PhoneBilling AddressPersonal/VfbnygTpprjt14/30/1973 [address] [place] [address] * Guarantor: Gaye WallsAccount TypeRelation to PatientDate of BirthPhone Billing BqqfohpOllwfDzkq91/04/2003 [address] [place] [address] Care Teams Team MemberRelationshipSpecialtyStart DateEnd Date No Pcp, No Pcp VICKY Jordan [id number] [facility] Qubohxbl28/2/23
--- OUTSIDE RECORDS SUMMARY | 2024-12-21 10:56 | XMS_ITS | Clinical Summary ---
Author Organization [facility] Address [address] [place] [id number] Care Team Providers Care Dance Costume Designer Name Role Phone Unavailable Primary Care Provider Unavailabl e Allergies No known active allergies Medications * This document contains information received from the source organization and may not represent a complete record from that organization. MedicationSigDispense QuantityRefillsLast FilledStart DateEnd DateStatus metFORMIN ER (GLUCOPHAGE XR) 500 mg 24 hr tablet Take 1,000 mg by mouth daily with breakfast.10/28/2021ctive midazolam (NAYZILAM) 5 mg/spray (0.1 mL) nasal spray Indications:Juvenile myoclonic epilepsy, not intractable, with status epilepticus (HCC)Use 1 spray in one nostril as needed for seizures lasting longer than 2 minutes. May repeat dose inalternate nostril after 10 minutes based on response and tolerability. 2 Each ctive venlafaxine ER (EFFEXOR XR) 37.5 mg 24 hr capsule Take 37.5 mg by mouth once daily.01/02/2024ctive magnesium hydroxide (MAGNESIA ORAL) Take 500 mg by mouth once daily.Active folic acid 1 mg tablet Indications:Juvenile myoclonic epilepsy, not intractable, with status epilepticus (HCC)Take 2 tablets by mouth once daily. 180 tablet /5Active lamoTRIgine (LAMICTAL) 100 mg tablet Take 1 tablet by mouth two times a day. Take with 25 mg tablet. 180 tablet 501/6Active lamoTRIgine (LAMICTAL) 25 mg tablet Take 2 tablets by mouth two times a day. Take with 100 mg tablet for a total of 150 mg twice daily. 360 tablet 506Active zonisamide (ZONEGRAN) 100 mg capsule TAKE 3 CAPSULES BY MOUTH AT BEDTIME 270 capsule 5Active Active Problems ProblemNoted DateDiagnosed DateJuvenile myoclonic epilepsy, not intractable, with status binirfnpvma60/11/2021ecurrent major depression in partial remission 09/28/2020 Social History Tobacco UseTypesPacks/DayYears UsedDateSmoking Tobacco: NeverPassive Smoke Exposure: NeverSmokeless Tobacco: Never Tobacco Cessation:Counseling Given: No PHQ-2AnswerDate RecordedPHQ-2 gesnj872rea Deprivation IndexAnswerDate RecordedNational Score (1-100), lower number is lower kmuz050502/01/2023State Score (1-10), lower number is lower wlvy1743Data from: https://www.neighborhoodatlas.[facility].edu/. Last address used for [address] 3CommentsNoSex and Gender Information ValueDate RecordedSex Assigned at NnfciXuqiij81/21/2022 6:50 AM ESTLegal Sex Uszvdn4609/12/2020 8:23 AM EDTGender EarggedlYuvqlz26/21/2022 6:50 AM ESTSexual QaidgzevsfkPkuufyat17/21/2022 6:50 AM EST Last Filed Vital Signs Vital SignReadingTime TakenCommentsBlood Ksnvhqvf325/6811 2:30 PM EST Jpemi481901/09/2024 2:30 PM ZEGHvqagcssdnp10.4 ??C (97.6 ??F)08/13/2023 1:46 PM EDTRespiratory Qgde030303/10/2023 2:30 PM ESTOxygen Wyulmgjqig92%01/09/2024 2:30 PM ESTInhaled Oxygen Concentration--Pgwefb54.3 kg (155 lb)01/09/2024 2:30 PM EST Mbkpxf733.4 cm (5')01/09/2024 2:30 PM ESTBody Mass Index30.27103/10/2023 2:30 PM EST Plan of Treatment Health MaintenanceDue DateLast DoneCommentsPeds To Adult Transition Initial Evnbtkmhww02/04/2015Peds To Adult Transition Annual Yxubgrgeal85/04/2017HPV Vaccine (1 - 3-dose series)2017Meningococcal B Vaccine (1 of 2 - Standard) 2018Anxiety Iunmxabpy10/04/2021hlamydia Screening (18-24)2020GC (Gonorrhea) Screening (18-24)2020HIV Lnnevykgc04/04/2021Hepatitis C Uebokkjev08/04/2021ervical Cancer Klwngmzzy92/04/2024ovid-19 Vaccine ( - 2024- season)504/08/2021, 05/04/2021Influenza Vaccine (#1)2024 12/11/2023, 12/10/2022TaP,Tdap,Td Vaccine (7 - Td or Tdap)604/09/2015, 06/10/2007, 01/24/2004, Additional history existsHepatitis B VaccineCompleted 07/20/2022, 06/19/2022, 06/11/2003, Additional history exists Insurance
--- OUTSIDE RECORDS SUMMARY | 2024-12-21 10:57 | XMS_ITS | Encounter Summary ---
Author Organization [facility] Address [address] [place] [address] Care Team Providers Care Hand Former Name Role Phone TaylorNory PRESCHOOL ASSISTANT PRINCIPAL Unavailable [phone] Marcial Mcclure DO Unavailable [phone] Rodrigo Queen MD Primary Care Provider [phone] Encounter Details DateTypeDepartmentCare Team (Latest Contact Info)Nksesaxjfps26/02/2025Travel Social History Tobacco UseTypesPacks/DayYears UsedDateSmoking Tobacco: NeverSmokeless [...] six or more drinks on one occasion? Egpuwug4004/13/2024PHQ-2AnswerDate RecordedPatient Health Questionnaire-2 Score0 04/13/2024CommentsNoSex and Gender InformationValueDate RecordedSex Assigned at BirthNot on fileLegal PaiEhtubp23/15/2023 11:47 PM EDTGender IdentityNot on fileSexual OrientationNot on filedocumented as of this encounter Plan of Treatment DateTypeDepartmentCare Team (Latest Contact Info)Vkbpwogdufx54/15/2025 1:00 PM ESTProcedure Visit [facility] [address] [address] Jennifer Rendon PA [address] [place] [address] documented as of this encounter Visit Diagnoses Not on filedocumented in this encounter Additional Health Concerns AssessmentNoted TimePHQ-9 Depression Total Score: 4:00 PM EST documented as of this encounter Care Teams Team MemberRelationshipSpecialtyStart DateEnd Date Rodrigo Queen MD [address] [facility] [address] [facility], [place] [id number] PCP - GeneralFamily Xsrwhnht09/17/25 Nory Taylor NP [address] [facility] [place] [place], [place] [id number] Nurse PractitionerFamily Medicine04/20/24 Marcial Mcclure DO [address] [place] [address] Referring PhysicianNeurology06/18/24documented as of this encounter
--- OUTSIDE RECORDS SUMMARY | 2024-12-21 10:57 | XMS_ITS | Encounter Summary ---
Author Organization [facility] Address [address] [place] [address] Care Team Providers Care Mimeograph Operator Name Role Phone Tommie Taylorlizy Gamble BUSINESS PROCESS MANAGER Unavailable [phone] Marcial Mcclure DO Unavailable [phone] Rodrigo Queen MD Primary Care Provider [phone] Encounter Details DateTypeDepartmentCare Team (Latest Contact Info)Athrjithrfd27/21/2025Telephone [facility] [address] [place] [address] [place] [address] Shanti Florez LPN Social History Tobacco UseTypesPacks/DayYears UsedDateSmoking Tobacco: NeverSmokeless [...] six or more drinks on one occasion? Edriwho8704/13/2024PHQ-2AnswerDate RecordedPatient Health Questionnaire-2 Score0 04/13/2024CommentsNoSex and Gender InformationValueDate RecordedSex Assigned at BirthNot on fileLegal BztAelkqk99/15/2023 11:47 PM EDTGender IdentityNot on fileSexual OrientationNot on filedocumented as of this encounter Miscellaneous Notes * Telephone Encounter - Aleksandra Barr MA - 12/09/2024 3:44 PM EDT Patient was informed that it is normal for menstrual cycles to be delayed following a suction D&C procedure. Explained that it may take some time as hormone levels return to normal. Patient was advised to monitor for abnormal symptoms such as heavy bleeding, fever, or severe pain. PVU * Telephone Encounter - Shanti Florez LPN - 12/08/2024 11:35 AM EDT 12/08/24 @ 10:54am Patient called and LMOM that she is in need of leave of absence would need to befilled out for her job. Also patient voiced that she had previously asked that nurse prior to procedure how long it would take for her to start bleeding and she was informed by that nurse that every patient is different. Patient stated that she still has not started bleeding and would like to know if she needs to be concerned? Patient request a call back. --ss documented in this encounter Plan of Treatment DateTypeDepartmentCare Team (Latest Contact Info)Fcckghpejgd50/15/2025 1:00 PM ESTProcedure Visit [facility] [address] [place] [address] Jennifer Rendon PA [address] [place] [address] documented as of this encounter Visit Diagnoses Not on filedocumented in this encounter Additional Health Concerns AssessmentNoted TimePHQ-9 Depression Total Score: 4:00 PM EST documented as of this encounter Care Teams Team MemberRelationshipSpecialtyStart DateEnd Date Rodrigo Queen MD [address] [place] [address] PCP - GeneralFamily Rccsepff56/17/25 Noyr Taylor NP [address], [place] [id number] Nurse PractitionerFamily Medicine04/20/24 Marcial Mcclure DO [address] [facility] [address] [place] [address] Referring PhysicianNeurology06/18/24documented as of this encounter
--- OUTSIDE RECORDS SUMMARY | 2024-12-21 10:57 | XMS_ITS | Clinical Summary ---
Author Organization [facility] Healthcare Address [address] [place] [address] Care Team Providers Care Dishwashing Machine Operator Name Role Phone AguilarMilly FELTING MACHINE OPERATOR HELPER Unavailable [phone] Marcial Mcclure DO Unavailable [phone] Rodrigo Queen MD Primary Care Provider [phone] Allergies No known active allergies Medications MedicationSigDispense QuantityRefillsLast FilledStart DateEnd DateStatus folic acid (Folvite) 1 MG tablet 11/28/2022ctive zonisamide (Zonegran) 100 MG capsule Take 300 mg by mouth DailyActive cyanocobalamin (Vitamin B-12) 1000 MCG tablet Take 1,000 mcg by mouth DailyActive Multiple Vitamins-Minerals (MULTIVITAMIN GUMMIES WOMENS PO) Take by mouthActive Midazolam (Nayzilam) 5 MG/0.1ML solution Administer into affected nostril(s)Active levETIRAcetam (Keppra) 500 MG tablet Indications: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 60 tablet 505//237628/ctive metFORMIN XR (Glucophage-XR) 500 MG 24 hr tablet Indications:Insulin resistanceTake 2 tablets (1,000 mg) by mouth in the evening. Take with meals Do not crush, chew, or split. 180 tablet 308/27/085743/6Active norethindrone-ethinyl estradiol-iron (Lo Loestrin Fe) 1 MG-10 MCG / 10 MCG tablet Indications:Menorrhagia with irregular cycleTake 1 tablet by mouth Daily Take 1 tablet by mouth daily 90 tablet /ctive fluconazole (Diflucan) 100 MG tablet Indications:Yeast infectionTake 1 tablet (100 mg) by mouth Daily for 10 days 10 tablet /5Active valACYclovir (Valtrex) 500 MG tablet Indications:HSV infectionTake 1 tablet (500 mg) by mouth Daily 90 tablet /6Active lamoTRIgine (LaMICtal) 100 MG tablet Take 100 mg by mouth in the morning and 100 mg before bedtime.12/21/2024 Discontinued(Therapy completed) azithromycin (Zithromax) 500 MG tablet Indications:Bacterial infection due to mycoplasmaDay 1: Take 2 tablets PO onetime dose; Day 2,3,4: Take 1 tablet daily 5 tablet Discontinued(Therapy completed) norethindrone-ethinyl estradiol-iron (Lo Loestrin Fe) 1 MG-10 MCG / 10 MCG tablet Indications:Menorrhagia with irregular cycleTake 1 tablet by mouth Daily Take 1 tablet by mouth daily 90 tablet Discontinued(Therapy completed) venlafaxine XR (Effexor XR) 37.5 MG 24 hr capsule Indications:Anxiety, generalizedTake 1 capsule (37.5 mg) by mouth Daily Do not crush or chew. 90 capsule Discontinued(Therapy completed) valACYclovir (Valtrex) 500 MG tablet Indications:HSV infectionTake 1 tablet (500 mg) by mouth Daily 90 tablet Discontinued Active Problems ProblemNoted DateDiagnosed DatePCOS (polycystic ovarian syndrome)04/10/2024 Recurrent major depression in partial ffumdadhc39/11/2021Juvenile myoclonic epilepsy, not intractable, with status oowoufpdaed58/11/2021nxiety and tsrfafiqvg92/27/2021 Resolved Problems ProblemNoted DateDiagnosed DateResolved DateConcussion with loss of consciousness of 30 minutes or less Encounters DateTypeDepartmentCare VoabGllccjsegse03/03/2025 9:00 AM ESTOffice Visit [facility] [place] [address] [facility] [place] [address] Alfredito Elizabeth, Postoperative visit; S/P D&C (status post dilation and curettage); Menorrhagia with irregular cycle; Yeast infection; HSV oxkjlhakp78/03/2025amboo flowsheet [facility] [address] [facility] [place] [address] Alfredito Elizabeth, DO 12/20/20240727Fahwca23/27/5135Htadof46/22/2025bstract [facility] [place] [address] [place] [address] Aleksandra Barr MA 12/08/2024Telephone [facility] [place] [address] [place] [address] Shanti Florez LPN 12/04/2024bstract [facility] EXT DEP Alfredito Elizabeth, DO 12/02/2024 3:00 PM EDTAncillary Procedure [facility] [place] [place] [address] [place] [address] Missed menses; Positive urine test ([facility])12/01/20248961Eamlae09/10/2025Orders Only [facility] [place] [address] [facility] [place] [address] Shanti Florez LPN Missed menses; Positive urine test ([facility]); Abnormal finding on dqeqpynpir73/10/2025linisync Result Encounter [facility] External Department Unsolicited Alfredito Elizabeth, DO 11/26/20240962Dqiors23/03/9622Fqvitv19/18/2025External Result Encounter [facility] External [facility] Unsolicited Alfredito Elizabeth, DO 11/05/2024Telephone [facility] [place] [place] [address] [place] [address] Lotus Philip MA 10/27/2024Telephone [facility] [address] [facility] [address] Sera GarzaYOEL 10/13/2024 8:30 AM EDTOffice Visit [facility] [address] [facility] [address] Jennifer Rendon PA Menorrhagia with irregular cycle; Insulin resistance; Herpes genitalis in women10/13/2024Refill [facility] [address] [facility] [address] Jennifer Rendon PA Insulin dlqwectksd91/26/2025Refill [facility] [address] [facility] [address] ClaraAlfredito mandujano, DO Anxiety, ftihwcnjgzl53/26/2025amboo flowsheet [facility] [address] [facility] [place] [address] Jennifer Rendon PA 10/08/2024Telephone [facility] [address] [facility] [place] [address] Jennifer Rendon PA 10/07/2024Refill [facility] [address] [facility] [place] [address] Lotus Philip MA Vaginal rkvnaf8210/07/2024Telephone [facility] [address] [facility] [place] [address] Lotus Philip MA 10/06/2024 9:50 AM EDTOffice Visit [facility] [address] [facility] [place] [address] Jennifer Rendon PA Vaginal discharge; STD exposure; Vaginal vqshee4110/06/2024linisync Result Encounter [facility] External Department Unsolicited Jennifer eRndon PA 10/06/2024External Result Encounter [facility] External Department Unsolicited Jennifer Rendon PA 10/06/2024amboo flowsheet [facility] [place] [place] [address] [place] [phone] Jennifer Rendon PA 09/23/2024Telephone [facility] [address] [place] [address] Aleksandra Barr MA from Last 3 Months Immunizations ImmunizationAdministration DatesNext EudXDxX1606/10/2007,01/24/2004DTaP / Hep B / IPV2002DTaP, Yjhymgsqpxl16/23/2004,03/19/2003Hep B, Adolescent or Dnafeqtdc84/02/2023,2002Hep B, adult07/20/2022HiB, yoqlxjujvdn41/30/2004 Hib (PRP-T)11/18/2003,2002Hib / Hep B006/11/2003IPV06/10/2007,06/11/2003, 03/19/2003Influenza, injectable, quadrivalent, preservative free12/10/2022MMR 06/10/2007,11/18/2003Meningococcal ACWY, iiulqyajvnm02/26/2016Meningococcal NAJ7C791Pneumococcal Conjugate PCV 7011/18/2003,2002Tdap05/27/2015 Family History Medical HistoryRelationNameCommentsNo Known ProblemsFatherCirrhosisMaternal GrandmotherHeart attackMaternal GrandmotherValvular heart diseaseMaternal GrandmotherValvular heart diseaseMotherCirrhosisMother's SisterCancerPaternal GrandfatherClyde IvyLung cancerPaternal GrandfatherClyde IvyDementiaPaternal GrandmotherValvular heart diseaseSisterRelationNameStatusCommentsFatherAlive Maternal GrandfatherDeceasedMaternal GrandmotherDeceasedMotherAliveMother's SisterPaternal GrandfatherClyde IvyDeceasedPaternal GrandmotherDeceasedSister Social History Tobacco UseTypesPacks/DayYears UsedDateSmoking Tobacco: NeverSmokeless [...] six or more drinks on one occasion? Duiaeek6404/13/2024PHQ-2AnswerDate RecordedPatient Health Questionnaire-2 Score0 04/13/2024CommentsNoSex and Gender InformationValueDate RecordedSex Assigned at BirthNot on fileLegal HfwScvpwh39/15/2023 11:47 PM EDTGender IdentityNot on fileSexual OrientationNot on file Last Filed Vital Signs Vital SignReadingTime TakenCommentsBlood Bprfmgzi387/6011 9:43 AM EST Oyryk500406/18/2024 3:28 PM EDTTemperature--Respiratory Rate--Oxygen Icsguvhokb81% 06/18/2024 3:28 PM EDTInhaled Oxygen Concentration--Mwuyte77.1 kg (137 lb) 12/21/2024 9:43 AM MTTVmrtid793.9 cm (5' 1 )12/21/2024 9:43 AM ESTBody Mass Index25.8912/21/2024 9:43 AM EST Plan of Treatment DateTypeDepartmentCare Team (Latest Contact Info)Ptunpidopls91/15/2025 1:00 PM ESTProcedure Visit [facility] [address] [facility] [address] Jennifer Rendon PA [address] [facility] [address] [place], [place] [address] Health MaintenanceDue DateLast DoneCommentsCOVID-19 Vaccine ( season) , 05/04/2021Influenza Vaccine (#1) Pneumococcal Vaccine: Pediatrics (0 to 5 Years) and At-Risk Patients (6 to 64 Years)Aged Out11/18/2003, 2002No longer eligible based on patient's age to complete this topic Procedures Procedure NamePriorityDate/TimeAssociated DiagnosisCommentsUS OB TRANSVAGINAL Gzjsspq5312/02/2024 4:03 PM EDT Missed menses Positive urine test (HHS-HCC) US OB ERJXZMJYDVEX43/10/2025 7:52 AM EDT HCG, TOTAL, YRRzxcpwk99/18/2025 4:23 PM EDT RECURRENT VAGINITIS (HTRX)Gchbltd6510/06/2024 12:13 PM EDT RECURRENT VAGINITIS (HTRX)Flgvref9910/06/2024 12:11 PM EDT [facility] HERPES SIMPLEX VIRUS 1/2 DNA LGOJakboej10/19/2025 11:01 AM EDT from Last 3 Months Results * US OB transvaginal (12/02/2024 4:03 PM EDT)Anatomical RegionLateralityModality BodyUltrasoundSpecimen (Source)Anatomical Location / LateralityCollection Method / VolumeCollection TimeReceived Time12/03/2024 1:01 PM EDT Impressions 12/03/2024 1:18 PM EDT No evidence of cardiac activity, single pole correlate with beta hCG findings. Dr. Elizabeth/Jennifer Sood PA-C were notified at the time of the examination. ?? TRANSCRIBED BY: ? ELECTRONICALLY SIGNED BY: Julien Oscar MD Narrative 12/03/2024 1:18 PM EDT FINDINGS: Comparison November 27, 2024 single intrauterine gestational sac with a double decidual reaction, pole crown-rump length 1.7 cm which suggest an 8-week and 1 day gestational age with neighboringyolk sac. There is no cardiac activity with a slightly irregular shaped pole for this age andlimited change in size. Procedure Note Julien Oscar [...] BY: ELECTRONICALLY SIGNED BY: Julien Oscar MD Authorizing ProviderResult TypeResult StatusCorey Clara DOIMG OB US PROCEDURES Final Result * US OB TRANSVAGINAL (11/27/2024 7:52 AM EDT)Anatomical RegionLateralityModality OtherSpecimen (Source)Anatomical Location / LateralityCollection Method / VolumeCollection TimeReceived Time11/27/2024 7:52 AM EDT Narrative 11/27/2024 7:55 AM EDT [facility] ?[address] ? [place] [address] ? Ultrasound Report ? Signed ? Patient: QUENTIN WALLS ?MR#: [id number] ?? : 2000 ?Acct:[id number] ?? Age/Sex: 24 / F ?ADM Date: 11/27/24 ?? Loc: US ? Attending Dr: Alfredito Elizabeth D.O. ? Ordering Physician: Alfredito Elizabeth D.O. ?? Date of Service: 11/27/24 ?? Procedure(s): US OB transvaginal ?? Accession Number(s): [id number] ? cc: Alfredito Elizabeth D.O.; MILLY AGUILAR NP ? [facility] ? [address] ? [place] [address] ? Patient Name: ?? QUENTIN ??KAVITA ? MRN: [facility]:[id number] ? date: 2000 ?Sex: F ?? Assigned Patient Location: US ?? Current Patient Location: US ?? Accession/Order Number: [id number] ?? Exam Date: 11/27/2024 ??07:02 ?Report Date: 11/27/2024 ??07:52 ? At the request of: ?? ALFREDITO ??CLARA ??DO ? Procedure: ??US OB transvaginal ? OB TRANSVAGINAL ULTRASOUND ? CLINICAL DATA: Missed menses and positive test. ? Transvaginal evaluation of the pelvis was performed. ??There is a gestational ?? sac within the uterus. ??A yolk sac and pole are present. ??The crown-rump ?? length measurement of 1.6 cm correlates with ultrasound age of 8 weeks 0 days. ?? The estimated date of delivery is 07/09/2025. ??The bobtail driver did not ?? document cardiac activity. ??The bobtail driver also raised question of the ?? possibility of gastroschisis. ??The cervix is closed and measures approximately ?? 3.7 cm in length. ? Both ovaries are seen. ??The right measures 4.4 x 2.6 x 2.7 cm . ??Left ovary ?? measures 2.5 x 2.1 x 2.1 cm. There are 2 cystic areas within the right ovary. ? The larger measures 2.2 x 2.0 x 2.2 cm. ??There are tiny left ovarian ?? follicles. ??There is documentation of ovarian blood flow. ??No free fluid is ?? noted. ? US/US OB transvaginal ?? IMPRESSION: ? POSSIBLE NONVIABLE 8 WEEK , DISCUSSED ABOVE. ??FOLLOW-UP WILL BE ?? NEEDED. ? Impression dictated by: Elissa Dunaway M.D. ??11/27/2024 7:52 AM ? Dictation Location: [place] [address] ? Electronically authenticated by: [id number] ??Y ?? Date: 11/27/2024 ??07:52 ? Dictated By: ?Elissa Dunaway M.D. ? Signed By: ?11/27/24 0755 ? DD/ 0752 ? TD/TT: ? Form Setter: Procedure Note Radiology, Radiologist, MD - 11/27/2024 [place] [address] Ultrasound Report Signed Patient: KALYANI WALLS#: [id number] : 2000Acct:[id number] Age/Sex: 24 FADM Date: 11/27/24 Loc: US Attending Dr: Alfredito Elizabeth D.O. Ordering Physician: Alfredito Elizabeth D.O. Date of Service: 11/27/24 Procedure(s): US OB transvaginal Accession Number(s): [id number] cc: Alfredito Elizabeth D.O.; MILLY AGUILAR NP [place] [address] Patient Name: QUENTIN WALLS MRN: [facility]:[id number] date: 2000 Sex: F Assigned Patient Location: US Current Patient Location: US Accession/Order Number: [id number] Exam Date: 11/27/2024 07:02 Report Date: 11/27/2024 [...] estimated date of delivery is 07/09/2025. The bobtail driver did not document cardiac activity. The bobtail driver also raised question of the possibility of [...] Dunaway M.D. 11/27/2024 7:52 AM Dictation Location: [place] [address] Electronically authenticated by: [id number] Y Date: 7:52 Dictated By: Elissa Dunaway M.D. Signed By:11/27/24 075 DD/ 075 TD/TT: Form Setter: Authorizing ProviderResult TypeResult StatusCorey Clara DOCLINISYNC IMAGINGFinal Result * hCG, quantitative, (11/05/2024 4:23 PM EDT)ComponentValueRef Range Test MethodAnalysis TimePerformed AtPathologist SignatureHCG,QUANTITATIVE 9,118.00m[iU]/mL11/05/2024 5:46 PM EDTFLutheran Hospital CtrComment: Approximate ?Approximate hCG Gestational Age ??Range (mIU/ml) (weeks) 0.2-1 ?5-50 ??1-2 ? 50-500 ??2-3 ?100-5,000 ??3-4 ?500-10,000 ??4-5 ?1,000-50,000 ??5-6 ? 10,000-100,000 ??6-8 ? 15,000-200,000 ??8-12 ?10,000-100,000 Specimen (Source)Anatomical Location / LateralityCollection Method / Volume Collection TimeReceived TimeOtherTopography unknown / Ktmnjkj4311/05/2024 4:23 PM EDT11/05/2024 4:23 PM EDT Narrative Authorizing ProviderResult TypeResult StatusCorey Clara DOLAB BLOOD ORDERABLES Final ResultPerforming OrganizationAddressCity/State/ZIP CodePhone Number [facility] [address] [place] [address], [facility] [address] [place] [address] * (ABNORMAL) RECURRENT VAGINITIS (HTRX) (10/06/2024 12:13 PM EDT) Only the most recent of2 resultswithin the time period is included. ComponentValueRef RangeTest MethodAnalysis TimePerformed AtPathologist Signature HERPES SIMPLEX VIRUS 1023.000 - 31.899 ppm10/07/2024 8:06 AM EDTHealthTrackRx at [facility] CenterHERPES SIMPLEX VIRUS 1Not Kahaifyx51.000 - 31.899 ppm10/07/2024 8:06 AM EDTHealthTrackRx at [facility] CenterHERPES SIMPLEX VIRUS 217.77(A)23.000 - 31.675 ppm 10/07/2024 8:06 AM EDTHealthTrackRx at [facility] CenterHERPES SIMPLEX VIRUS 2Detected(A) 23.000 - 31.675 ppm10/07/2024 8:06 AM EDTHealthTrackRx at Cascade Medical CenterSpecimen (Source)Anatomical Location / LateralityCollection Method / VolumeCollection TimeReceived OfkcIvklvj91/19/2025 12:13 PM EDT10/07/2024 2:19 AM EDT Narrative Authorizing ProviderResult TypeResult StatusAmy [facility] BLOOD ORDERABLES Final ResultPerforming OrganizationAddressCity/State/ZIP CodePhone Number [facility] [address] [address] * (ABNORMAL) [facility] HERPES SIMPLEX VIRUS 1/2 DNA PCR (10/06/2024 11:01 AM EDT) ComponentValueRef RangeTest MethodAnalysis TimePerformed AtPathologist SignatureHSV-1 DNANegativeNegativeTBHComment: This test was developed and its performance characteristics determined by [facility] [facility]. It has not been cleared or approved by the Food and Drug Administration. HSV-2 DNAPositive(A)NegativeTBHComment: This test was developed and its performance characteristics determined by [facility]. It has not been cleared or approved by the Food and Drug Administration. Performed at: ?? - [facility] [address] ??[id number] Mailing Section Clerk: Stanton Solorzano MD, Phone: ??[phone] Specimen (Source)Anatomical Location / LateralityCollection Method / Volume Collection TimeReceived Time10/06/2024 11:01 AM EDT10/06/2024 11:02 AM EDT Narrative [facility] - 10/09/2024 7:09 AM EDT Authorizing ProviderResult TypeResult StatusAmy Rye PACLINISYNCFinal Result Performing OrganizationAddressCity/State/ZIP CodePhone Number [facility] from Last 3 Months Insurance * Guarantor: Irena Walls TypeRelation to PatientDate of BirthPhoneBilling AddressPersonal/ZucvluQlih48/04/2001 [address] [address] * Guarantor: Ierna Walls TypeRelation to PatientDate of BirthPhoneBilling AddressPersonal/GbmrdkAhfn52/04/2003 [address] [place] [address] Care Teams Team MemberRelationshipSpecialtyStart DateEnd Date Rodrigo Queen MD [address] [place], [place] [address] PCP - GeneralFamily Ifqqnaxu36/17/25 Milly Aguilar, FELTING MACHINE OPERATOR HELPER [address] [place], [place] [address] Nurse PractitionerFamily Medicine04/20/24 Marcial Mcclure DO [address] [facility] [address] [place] [address] Referring PhysicianNeurology06/18/24
--- OUTSIDE RECORDS SUMMARY | 2024-12-21 10:57 | XMS_ITS | Encounter Summary ---
Author Organization [facility] Address [address] [place] [address] Care Team Providers Care Retail Pharmacist Name Role Phone TaylorNory SOCIAL CONTACT WORKER Unavailable [phone] Marcial Mcclure DO Unavailable [phone] Rodrigo Queen MD Primary Care Provider [phone] Encounter Details DateTypeDepartmentCare Team (Latest Contact Info)Wfqwuapjoeu49/03/2025amboo flowsheet [facility] [address] [facility] [address] Jonathan Elizabeth DO [address] [place] [place], [place] [address] Social History Tobacco UseTypesPacks/DayYears UsedDateSmoking Tobacco: NeverSmokeless [...] six or more drinks on one occasion? Duhjrue0604/13/2024PHQ-2AnswerDate RecordedPatient Health Questionnaire-2 Score0 04/13/2024CommentsNoSex and Gender InformationValueDate RecordedSex Assigned at BirthNot on fileLegal IetOuanje18/15/2023 11:47 PM EDTGender IdentityNot on fileSexual OrientationNot on filedocumented as of this encounter Plan of Treatment DateTypeDepartmentCare Team (Latest Contact Info)Prxjvaoqand31/15/2025 1:00 PM ESTProcedure Visit [facility] [place] [address] [facility] [address] Jennifer Rendon PA [address] [facility] [place] [address] documented as of this encounter Visit Diagnoses Not on filedocumented in this encounter Additional Health Concerns AssessmentNoted TimePHQ-9 Depression Total Score: 4:00 PM EST documented as of this encounter Care Teams Team MemberRelationshipSpecialtyStart DateEnd Date Rodrigo Queen MD [address] [facility] [place] [address] PCP - GeneralFamily Dngsnbiq74/17/25 Nory Taylor, SOCIAL CONTACT WORKER [address] [place], [place] [address] Nurse PractitionerFamily Medicine04/20/24 Marcial Mcclure DO [address] [place] [address] Referring PhysicianNeurology06/18/24documented as of this encounter
--- OUTSIDE RECORDS SUMMARY | 2024-12-21 10:57 | XMS_ITS | Encounter Summary ---
Author Organization [facility] Address [address] [place] [address] Care Team Providers Care Recoating Machine Operator Name Role Phone TaylorTommie paklizy Gamble MICA PATCHER Unavailable [phone] Marcial Mcclure DO Unavailable [phone] Rodrigo Queen MD Primary Care Provider [phone] Encounter Details DateTypeDepartmentCare Team (Latest Contact Info)Csitkciiyub05/22/2025bstract [facility] [address] [place] [address] [place] [address] Aleksandra Barr MA Social History Tobacco UseTypesPacks/DayYears UsedDateSmoking Tobacco: NeverSmokeless [...] six or more drinks on one occasion? Iqkixje3804/13/2024PHQ-2AnswerDate RecordedPatient Health Questionnaire-2 Score0 04/13/2024CommentsNoSex and Gender InformationValueDate RecordedSex Assigned at BirthNot on fileLegal PadJbsbat97/15/2023 11:47 PM EDTGender IdentityNot on fileSexual OrientationNot on filedocumented as of this encounter Plan of Treatment DateTypeDepartmentCare Team (Latest Contact Info)Amafzkjdrqx26/15/2025 1:00 PM ESTProcedure Visit [facility] [address] [facility] [address] Jennifer Rendon PA [address] [facility] [address] [place], [place] [address] documented as of this encounter Visit Diagnoses Not on filedocumented in this encounter Additional Health Concerns AssessmentNoted TimePHQ-9 Depression Total Score: 4:00 PM EST documented as of this encounter Care Teams Team MemberRelationshipSpecialtyStart DateEnd Date Rodrigo Queen MD [address] [facility] [place] [address] PCP - GeneralFamily Mjizdxlb90/17/25 Nory Taylor NP [address] [facility] [place] [address] Nurse PractitionerFamily Medicine04/20/24 Marcial Mcclure DO [address] [place] [address] Referring PhysicianNeurology06/18/24documented as of this encounter
--- OUTSIDE RECORDS SUMMARY | 2024-12-21 10:57 | XMS_ITS | Encounter Summary ---
Author Organization [facility] Address [address] [place] [address] Care Team Providers Care Car Stereo Installer Name Role Phone TaylorNory RETAIL MARKETING SPECIALIST Unavailable [phone] Marcial Mcclure DO Unavailable [phone] Rodrigo Queen MD Primary Care Provider [phone] Encounter Details DateTypeDepartmentCare Team (Latest Contact Info)Caldwqlnmtv84/27/2025Travel Social History Tobacco UseTypesPacks/DayYears UsedDateSmoking Tobacco: NeverSmokeless [...] six or more drinks on one occasion? Yxplfdh0504/13/2024PHQ-2AnswerDate RecordedPatient Health Questionnaire-2 Score0 04/13/2024CommentsNoSex and Gender InformationValueDate RecordedSex Assigned at BirthNot on fileLegal NwbWldenh37/15/2023 11:47 PM EDTGender IdentityNot on fileSexual OrientationNot on filedocumented as of this encounter Plan of Treatment DateTypeDepartmentCare Team (Latest Contact Info)Ylnwhnarfnj17/15/2025 1:00 PM ESTProcedure Visit [facility] [place] [address] [facility] [place] [address] Jennifer Rendon PA [address] [place] [address] documented as of this encounter Visit Diagnoses Not on filedocumented in this encounter Additional Health Concerns AssessmentNoted TimePHQ-9 Depression Total Score: 4:00 PM EST documented as of this encounter Care Teams Team MemberRelationshipSpecialtyStart DateEnd Date Rodrigo Queen MD [address] [facility] [address] [facility], [place] [address] PCP - GeneralFamily Ajoylygb39/17/25 Nory Taylor NP [address] [facility] [address] [place], [place] [address] Nurse PractitionerFamily Medicine04/20/24 Marcial Mcclure DO [address] [place] [address] Referring PhysicianNeurology06/18/24documented as of this encounter
== END 2024-12-21 10:46 | disposition home or self-care (01) ==
PROVIDERS: PCP Nurse Practitioner Family; Visit Provider Obstetrics & Gynecology
DX: Z48.89 Encounter for other specified surgical aftercare (principal); Z98.890 Other specified postprocedural states
CPT/HCPCS: 36415; 84702

== ENCOUNTER 2025-02-01 20:50 | Outpatient (REF) | payer BC, OTHER, SELFPAY ==
--- OUTSIDE RECORDS SUMMARY | 2025-02-01 13:00 | XMS_ITS | Encounter Summary ---
Author Organization [facility] Address [address] [place] [address] Care Team Providers Care Section Crews Activities Clerk Name Role Phone Taylor Nory J BID ANALYST Unavailable [phone] Marcial Mcclure DO Unavailable [phone] Rodrigo Queen MD Primary Care Provider [phone] Reason for Visit * ReasonCommentsWell Women Visit Encounter Details DateTypeDepartmentCare Team (Latest Contact Info)Huhjxvxehvd80/15/2025 1:00 PM ESTProcedure Visit [facility] [place] [facility] [address] [place] [address] Jennifer Rendon PA [address] [facility] [address] [place], [place] [id number] Well woman exam with routine gynecological exam; Vaginal discharge Social History Tobacco UseTypesPacks/DayYears UsedDateSmoking Tobacco: NeverSmokeless [...] six or more drinks on one occasion? Sdkkztr8704/13/2024PHQ-2AnswerDate RecordedPatient Health Questionnaire-2 Score0 04/13/2024CommentsNoSex and Gender InformationValueDate RecordedSex Assigned at BirthNot on fileLegal YcvVfixqi37/15/2023 11:47 PM EDTGender IdentityNot on fileSexual OrientationNot on filedocumented as of this encounter Last Filed Vital Signs Vital SignReadingTime TakenCommentsBlood Fwzozpbu524/8202/01/2025 1:13 PM EST Pulse--Temperature--Respiratory Rate--Oxygen Saturation--Inhaled Oxygen Concentration--Mluycg15.9 kg (143 lb)02/01/2025 1:13 PM ESTHeight--Body Mass Index27.02102/21/2024 9:43 AM ESTdocumented in this encounter Progress Notes * CESIA Esquivel - 02/01/2025 1:00 PM EST Reason for Appointment: Patient ID: Gaye Bird is a 24 y.o. female who presents for Well Women Visit Patient presents today for Annual Exam. MEDICATIONS Current Outpatient Medications Medication Instructions cyanocobalamin (VITAMIN B-12) 1,000 mcg, Daily folic acid (Folvite) 1 MG tablet levETIRAcetam (KEPPRA) 500 mg, Oral, 2 times [...] 1 tablet by mouth daily valACYclovir (VALTREX) 500 mg, Oral, Daily zonisamide (ZONEGRAN) 300 mg, Daily ALLERGIES No [...] Depression Epilepsy (HCC) History of suicide attempt Missed ([facility]) 12/04/2024 Mood changes Seizures (HCC) Urinary tract infection HISTORY PAST MEDICAL HISTORY SOCIAL HISTORY Past Medical History: Diagnosis Date Abnormal weight gain Anxiety Concussion with loss of consciousness of 30 minutes or less 10/30/2018 Depression Epilepsy (HCC) History of suicide attempt Missed ([facility]) 12/04/2024 Mood changes PCOS (polycystic ovarian syndrome) Seizures [...] cancer Paternal Grandfather Ashutosh Marge SURGICAL HISTORY Past Surgical History: Procedure Laterality Date DILATION AND CURETTAGE OF UTERUS 12/04/2024 REVIEW OF SYSTEMS Review of Systems: Review of Systems Constitutional: Negative. HENT: Negative. Eyes: Negative. Respiratory: Negative. Cardiovascular: Negative. Gastrointestinal: Negative. Genitourinary: Negative. Musculoskeletal: Negative. Skin: Negative. Neurological: Negative. All other systems reviewed and are negative. Hematological: Negative. Endocrine: Negative. Allergic/Immunologic: Negative. OBJECTIVE Objective: Physical Exam Constitutional: Appearance: Normal appearance. She is well-developed. Genitourinary: Vulva normal. Right Adnexa: not tender and no mass present. Left Adnexa: not tender and no mass present. No cervical discharge. Breasts: Breasts are soft. Right: Normal. Left: Normal. HENT: Head: Normocephalic. Nose: Nose normal. Mouth/Throat: Mouth: Mucous membranes are moist. Cardiovascular: Rate and Rhythm: Normal rate and regular rhythm. Pulmonary: Effort: Pulmonary effort is normal. Breath sounds: Normal breath sounds. Abdominal: General: Bowel sounds are normal. There is no distension. Palpations: Abdomen is soft. Tenderness: There is no abdominal tenderness. There is no guarding or rebound. Musculoskeletal: General: No swelling. Normal range of motion. Cervical back: Normal range of motion. Right lower leg: No edema. Left lower leg: No edema. Neurological: General: No focal deficit present. Mental Status: She is alert and oriented to person, place, and time. Skin: General: Skin is warm and dry. Psychiatric: Mood and Affect: Mood normal. Behavior: Behavior normal. Vitals and nursing note reviewed. Exam conducted with a milk driver present. Vitals: Estimated body mass index is 27.02 kg/m?? as calculated from the following: Height as of 12/21/24: 5' 1 . Weight as of this encounter: 143 lb. BP: 124/82 Patient's last menstrual period was 01/04/2025. Assessment/Plan ICD-10-CM 1. Well woman exam with routine gynecological exam Z01.419 Pap Smear 2. Vaginal discharge N89.8 SURESWAB(R) ADVANCED VAGINITIS PLUS, TMA CHLAMYDIA TRACHOMATIS (GENITO/STI) Neisseria gonorrhea DNA probe, direct Assessment/Plan Annual Exam: Patient presents today for an annual exam. Patient states abnormal discharge, cultures collected. Pap was obtained without difficulty. Orders Placed This Encounter Procedures CHLAMYDIA TRACHOMATIS (GENITO/STI) Neisseria gonorrhea DNA probe, direct Follow Up: Patient is to return in one year for annual unless needed otherwise. Documented by Aleksandra Barr MA on behalf of: CESIA Esquivel documented in this encounter Plan of Treatment DateTypeDepartmentCare Team (Latest Contact Info)Agcbbuumjdj96/21/2026 9:00 AM ESTProcedure Visit [facility] [place] [facility] [address] [place] [address] Jonathan Elizabeth DO [address] [facility] [place] [address] NameTypePriorityAssociated DiagnosesOrder SchedulePap SmearPathology and CytologyRoutine Well woman exam with routine gynecological exam Ordered: 02/01/2025SURESWAB(R) ADVANCED VAGINITIS PLUS, TMAPathology and CytologyRoutine Vaginal discharge Ordered: 02/01/2025HLAMYDIA TRACHOMATIS (GENITO/STI)LabRoutine Vaginal discharge Ordered: 02/01/2025Neisseria gonorrhea DNA probe, directLabRoutine Vaginal discharge Ordered: 02/01/2025documented as of this encounter Visit Diagnoses Diagnosis Well woman exam with routine gynecological exam Routine gynecological examination Vaginal discharge Leukorrhea, not specified as infective documented in this encounter Additional Health Concerns AssessmentNoted TimePHQ-9 Depression Total Score: 4:00 PM EST documented as of this encounter Care Teams Team MemberRelationshipSpecialtyStart DateEnd Date Rodrigo Queen MD [address] [place] [address] PCP - GeneralFamily Ynsekpzj47/24/25 Nory Taylor NP [address] [place] [address] Nurse PractitionerFamily Medicine04/20/24 Marcial Mcclure DO [address] [place] [address] Referring PhysicianNeurology06/18/24documented as of this encounter
--- OUTSIDE RECORDS SUMMARY | 2025-02-01 20:56 | XMS_ITS | Encounter Summary ---
Author Organization [facility] Address [address] [place] [address] Care Team Providers Care Hearing Aid Repair Technician Name Role Phone TaylorNory MORTGAGE PROTECTION SPECIALIST Unavailable [phone] Marcial Mcclure DO Unavailable [phone] Rodrigo Queen MD Primary Care Provider [phone] Encounter Details DateTypeDepartmentCare Team (Latest Contact Info)Dejlcxhkzvi76/15/2025Travel Social History Tobacco UseTypesPacks/DayYears UsedDateSmoking Tobacco: NeverSmokeless [...] six or more drinks on one occasion? Kiwqgqi9804/13/2024PHQ-2AnswerDate RecordedPatient Health Questionnaire-2 Score0 04/13/2024CommentsNoSex and Gender InformationValueDate RecordedSex Assigned at BirthNot on fileLegal VciYbmopf05/15/2023 11:47 PM EDTGender IdentityNot on fileSexual OrientationNot on filedocumented as of this encounter Plan of Treatment DateTypeDepartmentCare Team (Latest Contact Info)Hnyyopvuccc83/21/2026 9:00 AM ESTProcedure Visit [facility] [place] [facility] [address] [facility] [facility] [address] Jonathan Elizabeth DO [address] [address] [place], [place] [address] documented as of this encounter Visit Diagnoses Not on filedocumented in this encounter Additional Health Concerns AssessmentNoted TimePHQ-9 Depression Total Score: 4:00 PM EST documented as of this encounter Care Teams Team MemberRelationshipSpecialtyStart DateEnd Date Rodrigo Queen MD [address] [place], [place] [address] PCP - GeneralFamily Vgnaypoq36/24/25 Nory Taylor NP [address] [facility] [address] [place], [place] [address] Nurse PractitionerFamily Medicine04/20/24 Marcial Mcclure DO [address] [place] [address] Referring PhysicianNeurology06/18/24documented as of this encounter
--- OUTSIDE RECORDS SUMMARY | 2025-02-01 20:56 | XMS_ITS | Clinical Summary ---
Author Organization [facility] Address [address] [place] [address] Care Team Providers Care Rn Mental Health Name Role Phone Unavailable Primary Care Provider [...] tablets by mouth once daily. 180 tablet 412/5Active lamoTRIgine (LAMICTAL) 25 mg tablet Take 2 tablets by mouth two times a day. Take with 100 mg tablet for a total of 150 mg twice daily. 360 tablet 501/6Active zonisamide (ZONEGRAN) 100 mg capsule TAKE 3 CAPSULES BY MOUTH AT BEDTIME 270 capsule 5Active lamoTRIgine (LAMICTAL) 100 mg tablet Indications:Juvenile myoclonic epilepsy, not intractable, with status epilepticus (HCC)Take 1 tablet by mouth two times a day. 180 tablet 502/6Active Active Problems ProblemNoted DateDiagnosed DateJuvenile myoclonic epilepsy, not intractable, with status ljxuhhiwens46/11/2021ecurrent major depression in partial remission 09/28/2020 Encounters DateTypeDepartmentCare LexgYdablowrsyn75/06/2025Refill Neurology [address] [place] [address] Ashleigh Escalante APRN.HEDGE FUND TRADER Refill Requestfrom Last 3 Months Social History Tobacco UseTypesPacks/DayYears UsedDateSmoking Tobacco: NeverPassive Smoke Exposure: NeverSmokeless Tobacco: Never Tobacco Cessation:Counseling Given: No PHQ-2AnswerDate RecordedPHQ-2 ubjta6274Area Deprivation IndexAnswerDate RecordedNational Score (1-100), lower number is lower vagh542902/01/2023State Score (1-10), lower number is lower bhgr3633Data from: https://www.neighborhoodatlas.medicine.[facility].edu/. Last address used for [address] 3CommentsNoSex and Gender Information ValueDate RecordedSex Assigned at XrwdsXbhnqf70/21/2022 6:50 AM ESTLegal Sex Ddfbty5609/12/2020 8:23 AM EDTGender IbafkukzIewami15/21/2022 6:50 AM ESTSexual GsbxqbdbmrjTedpxbry66/21/2022 6:50 AM EST Last Filed Vital Signs Vital SignReadingTime TakenCommentsBlood Zupprais496/6801/09/2024 2:30 PM EST Mlazs150701/09/2024 2:30 PM BSYDffgugndcht49.4 ??C (97.6 ??F)08/13/2023 1:46 PM EDTRespiratory Wmcg077503/10/2023 2:30 PM ESTOxygen Hpdtqbkiqt68%01/09/2024 2:30 PM ESTInhaled Oxygen Concentration--Bnbcpi15.3 kg (155 lb)01/09/2024 2:30 PM EST Vtonud452.4 cm (5')01/09/2024 2:30 PM ESTBody Mass Index30.27103/10/2023 2:30 PM EST Plan of Treatment Health MaintenanceDue DateLast DoneCommentsPeds To Adult Transition Initial Oyjsxdgiyn19/04/2015Peds To Adult Transition Annual Ikzoizpokm72/04/2017HPV Vaccine (1 - 3-dose series)2017Meningococcal B Vaccine (1 of 2 - Standard) 2018Anxiety Pbihsfdky69/04/2021hlamydia Screening (-)2020GC (Gonorrhea) Screening (18-)2020HIV Fdnsktpsd97/04/2021Hepatitis C Wdstxtmdy84/04/2021ervical Cancer Ntyfmnlbd54/04/2024Covid-19 Vaccine (2024- season)504/08/2021, 05/04/2021Influenza Vaccine (#1)2024 12/11/2023, 3DTaP,Tdap,Td Vaccine (7 - Td or Tdap)604/09/2015, 06/10/2007, 01/24/2004, Additional history existsHepatitis B VaccineCompleted 07/20/2022, 06/19/2022, 06/11/2003, Additional history exists Insurance
--- OUTSIDE RECORDS SUMMARY | 2025-02-01 20:57 | XMS_ITS | Clinical Summary ---
Author Organization [facility] Address [address] [place] [address] Care Team Providers Care Technical Applications Scientist Name Role Phone AguilarMilly SALES REPRESENTATIVE DOOR TO DOOR Unavailable [phone] Marcial Mcclure DO Unavailable [phone] Rodrigo Queen MD Primary Care Provider [phone] Allergies No known active allergies Medications MedicationSigDispense [...] tablet (500 mg) before bedtime. 60 tablet 505//243640/ctive metFORMIN XR (Glucophage-XR) 500 MG 24 hr tablet Indications:Insulin resistanceTake 2 tablets (1,000 mg) by mouth in the evening. Take with meals Do not crush, chew, or split. 180 tablet 308/27/717815/6Active norethindrone-ethinyl estradiol-iron (Lo Loestrin Fe) 1 MG-10 MCG / 10 MCG tablet Indications:Menorrhagia with irregular cycleTake 1 tablet by mouth Daily Take 1 tablet by mouth daily 90 tablet /ctive valACYclovir (Valtrex) 500 MG tablet Indications:HSV infectionTake 1 tablet (500 mg) by mouth Daily 90 tablet ctive Active Problems ProblemNoted DateDiagnosed DatePCOS (polycystic ovarian syndrome)04/10/2024 Recurrent major depression in partial rxjgbqixm25/11/2021Juvenile myoclonic epilepsy, not intractable, with status ptlxwwnvljo22/11/2021nxiety and rnkijvyzmj37/27/2021 Resolved Problems ProblemNoted DateDiagnosed DateResolved DateConcussion with loss of consciousness of 30 minutes or less Encounters DateTypeDepartmentCare IuooSqrrhegeilf40/15/2025 1:00 PM ESTProcedure Visit [facility] [place] [facility] [address] [facility] [place] [address] Jennifer Rendon PA Well woman exam with routine gynecological exam; Vaginal axgzxcyew54/15/2025ambbernadine flowsheet [facility] [place] [facility] [address] [place] [address] Jennifer Rendon PA 02/01/20253076Skzxma61/03/2025 9:00 AM ESTOffice Visit [facility] [place] [facility] [address] [place] [address] Alfredito Elizabeth DO Postoperative visit; S/P D&C (status post dilation and curettage); Menorrhagia with irregular cycle; Yeast infection; HSV jxuifnaec59/03/2025linisync Result Encounter [facility] Department Unsolicited Alfredito Elizabeth DO 12/21/2024ambbernadine flowsheet [facility] [place] [facility] [address] [place] [address] Alfredito Elizabeth, 12/20/20242972Ftiypu92/27/9385Zcxwsk41/22/2025bstract [facility] [place] [address] [facility] [place] [address] Aleksandra Barr MA 12/08/2024Telephone [facility] [place] [facility] [address] [facility] [place] [phone] Shanti Florez LPN 12/04/2024bstract [facility] EXT DEP Alfredito Elizabeth, DO 12/03/2024linisync Result Encounter [facility] External Department Unsolicited Alfredito Elizabeth, DO 12/02/2024 3:00 PM EDTAncillary Procedure [facility] [place] [facility] [address] [place] [address] Missed menses; Positive urine test ([facility])12/01/20242633Lvsmux89/10/2025Orders Only [facility] [place] [facility] [address] [place] [address] Shanti Florez, YOEL Missed menses; Positive urine test ([facility]); Abnormal finding on haodivgimh28/10/2025linisync Result Encounter [facility] External Department Unsolicited Alfredito Elizabeth, DO 11/26/20242290Hzrvhx81/03/6430Oxhxkp81/18/2025External Result Encounter [facility] External Department Unsolicited Alfredito Elizabeth, DO 11/05/2024Telephone [facility] [place] [facility] [address] [facility] [place] [address] Lotus Philip MA from Last 3 Months Immunizations ImmunizationAdministration DatesNext WpuOPtM3106/10/2007,01/24/2004DTaP / Hep B / IPV2002DTaP, Kdpukkvcjyz97/23/2004,03/19/2003Hep B, Adolescent or Eqrtvcpro52/02/2023,2002Hep B, adult07/20/2022HiB, nhnjgttaqkw68/30/2004 Hib (PRP-T)11/18/2003,2002Hib / Hep B006/11/2003IPV06/10/2007,06/11/2003, 03/19/2003Influenza, injectable, quadrivalent, preservative free12/10/2022MMR 06/10/2007,11/18/2003Meningococcal ACWY, vuagcegbygu14/26/2016Meningococcal VQU0F5209/30/2020neumococcal Conjugate PCV 7011/18/2003,2002Tdap05/27/2015 Family History Medical HistoryRelationNameCommentsNo [...] six or more drinks on one occasion? Levmsuh1704/13/2024PHQ-2AnswerDate RecordedPatient Health Questionnaire-2 Score0 04/13/2024CommentsNoSex and Gender InformationValueDate RecordedSex Assigned at BirthNot on fileLegal JqkJgzjdl65/15/2023 11:47 PM EDTGender IdentityNot on fileSexual OrientationNot on file Last Filed Vital Signs Vital SignReadingTime TakenCommentsBlood Qzehyxdm534/8212 1:13 PM EST Riifd745006/18/2024 3:28 PM EDTTemperature--Respiratory Rate--Oxygen Yzohvlapjk32% 06/18/2024 3:28 PM EDTInhaled Oxygen Concentration--Jmjeee46.9 kg (143 lb) 02/01/2025 1:13 PM HGFSyteek906.9 cm (5' 1 )12/21/2024 9:43 AM ESTBody Mass Index27.02102/21/2024 9:43 AM EST Plan of Treatment DateTypeDepartmentCare Team (Latest Contact Info)Abyqfelozhp38/21/2026 9:00 AM ESTProcedure Visit [facility] [place] [facility] [address] [facility] [place] [address] Alfredito Elizabeth DO [address] [facility] [place] [address] Health MaintenanceDue DateLast DoneCommentsCOVID-19 Vaccine ( season) 504/08/2021, 2Pneumococcal Vaccine: Pediatrics (0 to 5 Years) and At-Risk Patients (6 to 64 Years)Aged Out11/18/2003, 2002No longer eligible based on patient's age to complete this topicInfluenza VaccineCompleted 12/16/2024, 12/10/2022 Procedures Procedure NamePriorityDate/TimeAssociated DiagnosisCommentsTBH PREG QUANT HCG Jyczksu6912/21/2024 11:01 AM EST ALL TYPE AND RSVODZAzcwvcb11/16/2025 5:08 PM EDT US OB DAGYEYCKWNOTFlvjyhc82/15/2025 4:03 PM EDT Missed menses Positive urine test ([facility]) US OB MARFHRHLKSYN48/10/2025 7:52 AM EDT HCG, TOTAL, HQLytynuc53/18/2025 4:23 PM EDT from Last 3 Months Results * TBH PREG QUANT HCG (12/21/2024 11:01 AM EST)ComponentValueRef RangeTest Method Analysis TimePerformed AtPathologist SignatureHCG CDIRXEEWZGWM61fLD/mLTBH Comment: 5-50 ? 0.2-1 WEEK 50-500 ? 1-2 WEEKS 100-5,000 ?2-3 WEEKS 500-10,000 ? 3-4 WEEKS 1,000-50,000 ?? 4-5 WEEKS 10,000-100,000 5-6 WEEKS 15,000-200,000 6-8 WEEKS 10,000-100,000 2-3 MONTHS Specimen (Source)Anatomical Location / LateralityCollection Method / Volume Collection TimeReceived Time12/21/2024 11:01 AM EST12/21/2024 11:06 AM EST Narrative CLINISYNC - 12/21/2024 11:41 AM EST Authorizing ProviderResult TypeResult StatusCorey Clara DOCLINISYNCFinal Result Performing OrganizationAddressCity/State/ZIP CodePhone Number [facility] * ALL TYPE AND SCREEN (12/03/2024 5:08 PM EDT)ComponentValueRef RangeTest Method Analysis TimePerformed AtPathologist SignatureBLOOD TYPEAB PositiveTBHANTIBODY SCREENNEGATIVETBHSpecimen (Source)Anatomical Location / LateralityCollection Method / VolumeCollection TimeReceived Time12/03/2024 5:08 PM EDT1 5:11 PM EDT Narrative CLINISYNC - 12/03/2024 6:[address] [facility] , Authorizing ProviderResult TypeResult StatusCorey Clara DOCLINISYNCFinal Result Performing OrganizationAddressCity/State/ZIP CodePhone Number [facility] * US OB transvaginal (12/02/2024 4:03 PM [...] Oscar MD Authorizing ProviderResult TypeResult StatusCorey Clara HERNANDEZ OB US PROCEDURES Final Result * US OB TRANSVAGINAL (11/27/2024 7:52 AM EDT)Anatomical RegionLateralityModality OtherSpecimen (Source)Anatomical Location / LateralityCollection Method / VolumeCollection TimeReceived Time11/27/2024 7:52 AM EDT Narrative 11/27/2024 7:[address] [facility] ?[address] ? [place] [address] ? Ultrasound Report ? Signed ? Patient: QUENTIN WALLS ?MR#: [id number] ?? : 2000 ?Acct:[id number] ?? Age/Sex: 24 / F ?ADM Date: 11/27/24 ?? Loc: US ? Attending Dr: Alfredito Elizabeth D.O. ? Ordering Physician: Alfredito Elizabeth D.O. ?? Date of Service: 11/27/24 ?? Procedure(s): US OB transvaginal ?? Accession Number(s): [id number] ? cc: Alfredito Elizabeth D.O.; MILLY AGUILAR SALES REPRESENTATIVE DOOR TO DOOR ? [facility] ? [address] ? [place] [address] ? Patient Name: ?? QUENTIN ??KAVITA ? MRN: [facility]:[id number] ? date: 2000 ?Sex: F ?? Assigned Patient Location: US ?? Current Patient Location: US ?? Accession/Order Number: [id number] ?? Exam Date: 11/27/2024 ??07:02 ?Report Date: [...] estimated date of delivery is 07/09/2025. ??The training and development head did not ?? document cardiac activity. ??The training and development head also raised question of the ?? possibility [...] M.D. ??11/27/2024 7:52 AM ? Dictation Location: [place] [address] ? Electronically authenticated by: [id number] ??Y ?? Date: 11/27/2024 ??07:52 ? Dictated By: ?Elissa Dunaway M.D. ? Signed By: ?/12/12 0755 ? DD/DT: /12/12 0752 ? TD/TT: ? Home Specialist: Procedure Note Radiology, Radiologist, - 11/27/2024 [place] [address] Ultrasound Report Signed Patient: KALYANI WALLS#: [id number] : 2000Acct:[id number] Age/Sex: 24 FADM Date: 11/27/24 Loc: US Attending Dr: Alfredito Elizabeth D.O. Ordering Physician: Alfredito Elizabeth D.O. Date of Service: 11/27/24 Procedure(s): US OB transvaginal Accession Number(s): [id number] cc: Alfredito Elizabeth D.O.; MILLY AGUILAR NP The [place] [id number] Patient Name: QUENTIN WALLS MRN: [facility]:[id number] date: 2000 Sex: F Assigned Patient Location: US Current Patient Location: US Accession/Order Number: [id number] Exam Date: 11/27/2024 07:02 Report Date: 11/27/2024 [...] estimated date of delivery is 07/09/2025. The training and development head did not document cardiac activity. The training and development head also raised question of the possibility of [...] Dunaway M.D. 11/27/2024 7:52 AM Dictation Location: [place] [address] Electronically authenticated by: [id number] Y Date: 7:52 Dictated By: Elissa Dunaway M.D. Signed By:11/27/24754 DD/ 1 TD/TT: Home Specialist: Authorizing ProviderResult TypeResult StatusCorey Clara DOCLINISYNC IMAGINGFinal Result * hCG, quantitative, (11/05/2024 4:23 PM EDT)ComponentValueRef Range Test MethodAnalysis TimePerformed AtPathologist SignatureHCG,QUANTITATIVE 9,118.00m[iU]/mL11/05/2024 5:46 PM EDMercy Health Anderson Hospital CtrComment: Approximate ?Approximate hCG Gestational Age ??Range (mIU/ml) (weeks) 0.2-1 ?5-50 ??1-2 ? 50-500 ??2-3 ?100-5,000 ??3-4 ?500-10,000 ??4-5 ?1,000-50,000 ??5-6 ? 10,000-100,000 ??6-8 ? 15,000-200,000 ??8-12 ?10,000-100,000 Specimen (Source)Anatomical Location / LateralityCollection Method / Volume Collection TimeReceived TimeOtherTopography unknown / Unpsjer0511/05/2024 4:23 PM EDT11/05/2024 4:23 PM EDT Narrative Authorizing ProviderResult TypeResult StatusCorejanel Clara POLLACK BLOOD ORDERABLES Final ResultPerforming OrganizationAddressCity/State/ZIP CodePhone Number [facility] [address] [place] [address], [facility] [address] [facility] [place] [address] from Last 3 Months Insurance * Guarantor: Irena Walls TypeRelation to PatientDate of BirthPhoneBilling AddressPersonal/PizbleYzjr00/04/2001 [address] [place] [address] * Guarantor: Irena Walls TypeRelation to PatientDate of BirthPhoneBilling AddressPersonal/ErzdehHomm60/04/2003 [address] [place] [address] Care Teams Team MemberRelationshipSpecialtyStart DateEnd Date Rodrigo Queen MD [address] [place] [address] PCP - GeneralFamily Aejyoxrb72/24/25 Milly Aguilar, GENI [address] [place] [address] Nurse PractitionerFamily Medicine04/20/24 Marcial Mcclure DO [address] [place] [address] Referring PhysicianNeurology06/18/24
--- OUTSIDE RECORDS SUMMARY | 2025-02-01 20:57 | XMS_ITS | Clinical Summary ---
Author Organization [employer] Address [id number] [address] [place] [address] Care Team Providers Care Supervisor [employer] Name Role Phone No Pcp, No Pcp [...] DateJuvenile myoclonic epilepsy, not intractable, with status nukkvdgseop57/11/2021Recurrent major depression in partial remission 1Anxiety and vabifxoyft81/27/2021Concussion with loss of consciousness of 30 minutes or less10/30/2018 Immunizations ImmunizationAdministration DatesNext VdyMAfW5306/10/2007,01/24/2004DTaP / Hep B / IPV2002DTaP, Ievqdqyvhws23/23/2004,03/19/2003Hep B / HIB06/11/2003Hep B, Adolescent or Weymyroha52/02/2023,2002Hepatitis B007/20/2022HiB03/19/2003 Hib (PRP-T)11/18/2003,2002IPV06/10/2007,06/11/2003,03/19/2003Influenza, Injectable, quadrivalent (PF)01/06/2021(Deferred: Patient decision)MMR06/10/2007 ,11/18/2003Meningococcal Guahujthc65/13/2021Meningococcal, Ernhfpqirru18/26/2016 Pneumococcal Tiwdmetpr53/30/2004,2002Tdap05/27/2015 Social History Tobacco UseTypesPacks/DayYears UsedDateSmoking Tobacco: NeverSmokeless Tobacco: Never Tobacco Cessation:Counseling Given: Not Answered Alcohol UseStandard Drinks/WeekCommentsYes0 (1 standard drink = 0.6 oz pure alcohol)sociallyPHQ-2AnswerDate RecordedTotal Ggdkb011/01/2022ChildcareAnswer Date OtwkfxzrCbkmkajrsQvpmeny26/10/2019EmploymentAnswerDate RecordedEmployment Rftymkz3807/28/2018Hunger ScreeningAnswerDate RecordedWithin the past 12 months we worried whether our food would run out before we got money to buy more.Never True01/19/2023Within the past 12 months the food we bought just didn't last and we didn't have money to get more.Never True3Purpose - LifeAnswerDate RecordedPurpose and direction in ypgaDoxswug40/25/2021CommentsNoSex and Gender InformationValueDate RecordedSex Assigned at DcrmkQggxdi98/05/2024 3:54 PM ESTLegal DljMfipfc57/04/2015 12:18 PM EDTGender YcfljmueZnavke79/05/2024 3:54 PM ESTSexual LatlhspdmzmJnghzdhr03/05/2024 3:54 PM EST Last Filed Vital Signs Vital SignReadingTime TakenCommentsBlood Heoookkp009/8301/19/2023 10:32 AM EST Yksqg714501/19/2023 11:38 AM IMHAalvqpwkgec31.9 ??C (98.5 ??F)01/19/2023 10:32 AM ESTRespiratory Bxxu094603/22/2022 11:38 AM ESTOxygen Ztyzkrauum32%01/19/2023 11:38 AM ESTInhaled Oxygen Concentration--Gzrlji33.1 kg (154 lb 9.6 oz)08/08/2022 10:05 AM MCFZijymq132.4 cm (5')08/08/2022 10:05 AM EDTBody Mass Index30.19 08/08/2022 10:05 AM EDT Plan of Treatment Health MaintenanceDue DateLast DoneCommentsChlamydia Mldhqkfon95/04/2003 Depression Fdheuekzj86/04/2015dult BMI Nhrewykqn93/3Pap Smear 10/23/2023Tobacco Ldoksqbfr42/02/2024OVID-19 Vaccine ( season) /08/2021, 05/04/2021Influenza Gwpvwzi28/TaP,Tdap and Td Vaccines (7 - Td or Tdap)/09/2015, 06/10/2007, 01/24/2004, Additional history exists Medical Devices Not on file Insurance * Guarantor: Shaylee Rawls TypeRelation to PatientDate of PhoneBilling AddressPersonal/FcxhenUlfycs08/30/1973 [address] [place] [address] * Guarantor: Gaye WallsAccount TypeRelation to PatientDate of BirthPhone Billing AeksoeyPagksYbrg29/04/2001 [address] [place] [address] Care Teams Team MemberRelationshipSpecialtyStart DateEnd Date No Pcp, No Pcp VICKY Jordan [id number] PCP - GeneralFamily Wgftrbyr73/2/23
--- OUTSIDE RECORDS SUMMARY | 2025-02-01 20:57 | XMS_ITS | Encounter Summary ---
Author Organization [facility] Address [address] [place] [address] Care Team Providers Care Supervisor [employer] Name Role Phone TaylorNory N[employer] OPERATOR Unavailable [phone] Marcial Mcclure DO Unavailable [phone] Rodrigo Queen MD Primary Care Provider [phone] Encounter Details DateTypeDepartmentCare Team (Latest Contact Info)Hftznlvjckl00/15/2025amboo flowsheet [facility] [address] [place] [address] Jennifer Rendon PA [address] [place], [place] [phone] Social History Tobacco UseTypesPacks/DayYears UsedDateSmoking Tobacco: NeverSmokeless [...] six or more drinks on one occasion? Nnpzekd5904/13/2024PHQ-2AnswerDate RecordedPatient Health Questionnaire-2 Score0 04/13/2024CommentsNoSex and Gender InformationValueDate RecordedSex Assigned at BirthNot on fileLegal OisAlcbzd82/15/2023 11:47 PM EDTGender IdentityNot on fileSexual OrientationNot on filedocumented as of this encounter Plan of Treatment DateTypeDepartmentCare Team (Latest Contact Info)Yjkiyrwkonw19/21/2026 9:00 AM ESTProcedure Visit [facility] [address] [place] [place] [address] Jonathan Elizabeth DO [address] Fausto Archuleta, [facility]11 documented as of this encounter Visit Diagnoses Not on filedocumented in this encounter Additional Health Concerns AssessmentNoted TimePHQ-9 Depression Total Score: 4:00 PM EST documented as of this encounter Care Teams Team MemberRelationshipSpecialtyStart DateEnd Date Rodrigo Queen MD [address] [facility], [place] [id number] PCP - GeneralFamily Xqkihopa80/24/25 Nory Taylor NP [address] [place], [place] [id number] Nurse PractitionerFamily Medicine04/20/24 Marcial Mcclure DO [address] [place], [place] [id number] Referring PhysicianNeurology06/18/24documented as of this encounter
== END 2025-02-01 20:51 | disposition home or self-care (01) ==
LOC: LAB 20:50
PROVIDERS: PCP Nurse Practitioner Family; Visit Provider Physician Assistant
DX: Z01.419 Encounter for gynecological examination (general) (routine) without abnormal findings (principal)
CPT/HCPCS: 88175